=== PATIENT | male | born 1960 | race Caucasian/White ===

== ENCOUNTER 2016-12-06 13:15 | Inpatient (IN) | payer OTHER ==
[2016-12-06 14:04] VITALS: BMI 29.0
[2016-12-06] MEDS ORDERED: diazePAM 5 MG TABLET PO ONE (16:08)
[2016-12-06] MEDS ORDERED: hydrOXYzine PAMOATE 50 MG CAPSULE (FP) PO PRN (16:08)
[2016-12-06] MEDS ORDERED: METHADONE HCL 10 MG TABLET (FOR DETOX USE ONLY) PO ONE ×2 (16:08→23:00)
[2016-12-06] MEDS ORDERED: MAG HYDROX/AL HYDROX/SIMETH 30 ML UNIT-DOSE CUP PO PRN (16:08)
[2016-12-06] MEDS ORDERED: LOPERAMIDE HCL 2 MG CAPSULE PO PRN (16:08)
[2016-12-06] MEDS ORDERED: guaiFENesin/D-METHORPHAN HB 10 ML UNIT-DOSE CUPS PO PRN (16:08)
[2016-12-06] MEDS ORDERED: NICOTINE POLACRILEX 4 MG GUM BC PRN ×2 (16:08)
[2016-12-06] MEDS ORDERED: IBUPROFEN 400 MG TABLET (FP) PO PRN (16:08)
[2016-12-06] MEDS ORDERED: MENTHOL/PHENOL 1 EACH UD MM PRN (16:08)
[2016-12-06] MEDS ORDERED: ACETAMINOPHEN 325 MG TABLET (FP) PO PRN (16:08)
[2016-12-06] MEDS ORDERED: MAGNESIUM CITRATE 300 ML BOTTLE PO PRN (16:08)
[2016-12-06] MEDS ORDERED: MAGNESIUM HYDROX 2400MG/30ML ORAL SUSPENSION 30 ML CUP PO PRN (16:08)
[2016-12-06] MEDS ORDERED: P-EPHED 60MG/TRIPROLIDI 2.5MG TABLET PO PRN (16:08)
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
[2016-12-06] MEDS ORDERED: ALBUTEROL SO4 6.7 GM HFA INHALER IH PRN (16:10)
[2016-12-06] MEDS ORDERED: NICOTINE 21 MG/24 HOURS TOPICAL PATCH TD SCH (16:15)
[2016-12-06] MEDS ORDERED: METHADONE HCL 10 MG TABLET (FOR DETOX USE ONLY) ONE (18:37)
[2016-12-06] MEDS: NICOTINE 21 MG/24 HOURS TOPICAL PATCH TD SCH (18:51)
[2016-12-06] MEDS: CYCLOBENZAPRINE HCL 10 MG TABLET (FP) PO SCH (22:08)
[2016-12-06] MEDS: diazePAM 5 MG TABLET PO SCH (22:08)
[2016-12-06] MEDS: NAPROXEN 500 MG TABLET (FP) PO SCH (22:08)
[2016-12-06] MEDS: TAMSULOSIN HCL 0.4 MG CAP.ER.24H (FP) PO SCH (22:08)
[2016-12-06] MEDS: SULFAMETHOXAZOLE/TRIMETHOPRIM 800MG/160MG D.S. TABLET PO SCH (22:08)
[2016-12-06] MEDS: cloNIDine HCL 0.1 MG TABLET PO SCH (22:09)
[2016-12-06] MEDS: GABAPENTIN 100 MG CAPSULE (FP) PO SCH (22:09)
[2016-12-06] MEDS: THIAMINE HCL 100 MG TABLET (FP) PO SCH (22:09)
[2016-12-06 22:23] LABS: URINE APPEARANCE SLCLOUDY; URINE BILIRUBIN NEGATIVE (NEGATIVE); URINE BLOOD NEGATIVE (NEGATIVE); URINE COLOR AMBER; URINE GLUCOSE (UA) NEGATIVE (NEGATIVE); URINE KETONE NEGATIVE (NEGATIVE); URINE LEUK ESTERASE TRACE (NEGATIVE); URINE NITRITE NEGATIVE (NEGATIVE); URINE PROTEIN NEGATIVE (NEGATIVE)
[2016-12-06 22:59] LABS: CALCIUM OXALATE CRYSTALS MODERATE /hpf (NONE SEEN); URINE MUCUS MANY; URINE RBC 8 /hpf (0-3); URINE WBC 16 /hpf (3-5)
[2016-12-07] MEDS: diazePAM 5 MG TABLET PO SCH ×3 (05:04→22:18)
[2016-12-07] MEDS: GABAPENTIN 100 MG CAPSULE (FP) PO SCH ×3 (05:04→22:18)
[2016-12-07] MEDS: CYCLOBENZAPRINE HCL 10 MG TABLET (FP) PO SCH ×3 (05:04→22:18)
[2016-12-07 10:00] LABS: MCH 30.8 pg (25.7-33.7); MCHC 33.7 g/dl (32.0-35.9); MEAN CELL VOLUME 91.3 fl (80-96); MEAN PLT VOLUME 10.5 fl (7.5-11.1); PLATELET COUNT 138 K/MM3 (134-434); RDW 13.3 % (11.9-15.9)
[2016-12-07] MEDS ORDERED: METHADONE HCL 10 MG TABLET (FOR DETOX USE ONLY) PO SCH (10:00)
[2016-12-07 10:11] LABS: HIV 1 & 2 AB NEGATIVE; HIV 1 AGp24 NEGATIVE
[2016-12-07] MEDS: SULFAMETHOXAZOLE/TRIMETHOPRIM 800MG/160MG D.S. TABLET PO SCH ×2 (10:35→22:36)
[2016-12-07] MEDS: TAMSULOSIN HCL 0.4 MG CAP.ER.24H (FP) PO SCH ×2 (10:35→22:18)
[2016-12-07] MEDS: PRENATAL VITAMINS W/ FOLIC ACID TABLET (FP) PO SCH (10:35)
[2016-12-07] MEDS: NICOTINE 21 MG/24 HOURS TOPICAL PATCH TD SCH (10:36)
[2016-12-07] MEDS: cloNIDine HCL 0.1 MG TABLET PO SCH ×2 (10:36→22:18)
[2016-12-07] MEDS: NAPROXEN 500 MG TABLET (FP) PO SCH ×2 (10:36→22:18)
--- NOTE | 2016-12-07 10:36 | PN ---
[facility] CIWA - CIWA Score Nausea/Vomitin-No Nausea/No Vomiting Muscle Tremors: 4-Moderate,w/Arms Extend Anxiety: 4-Mod. Anxious/Guarded Agitation: 4-Moderately Restless Paroxysmal Sweats: 1-Minimal Palms Moist Orientation: 0-Oriented Tacttile Disturbances: 3-Moderate Itch/Numb/Burn Auditory Disturbances: 0-None Visual Disturbances: 0-None Headache: 0-None Present CIWA-Ar Total Score: 16 S COWS - Scale Resting Pulse: 0= [place] 80 or Below Sweatin= Chills/Flushing Restless Observation: 3= Extraneous Movement Pupil Size: 0= Normal to Room Light Bone or Joint Aches: 4=Acute Joint/Muscle Pain Runny Nose/ Eye Tearin= Nasal Congestion GI Upset > 30mins: 0= None Tremor Observation of Outstretched Hands: 1= Tremor [place], Not Seen Yawning Observation: 1= 1-2x During Session Anxiety or Irritability: 1=Feels Anxious/Irritable Goose Flesh Skin: 0=Smooth Skin COWS Score: 12 [facility] Progress Note (SOAP) Subjective: ALERT O X 3. SLIGHT ANXIETY, SWEATS. Objective: 12/07/16 10:39 Vital Signs Temperature 97.7 F 12/07/16 09:33 Pulse Rate 69 12/07/16 09:33 Respiratory Rate 18 12/07/16 09:33 Blood Pressure 93/61 12/07/16 09:33 O2 Sat by Pulse Oximetry (%) Laboratory Last Values WBC 7.0 K/mm3 (4.0-10.0) 12/07/16 06:00 RBC 5.25 M/mm3 (4.00-5.60) 12/07/16 06:00 Hgb 16.2 GM/dL (11.7-16.9) 12/07/16 06:00 Hct 48.0 % (35.4-49) 12/07/16 06:00 MCV 91.3 fl (80-96) 12/07/16 06:00 MCH 30.8 pg (25.7-33.7) 12/07/16 06:00 MCHC 33.7 g/dl (32.0-35.9) 12/07/16 06:00 RDW 13.3 % (11.9-15.9) 12/07/16 06:00 Plt Count 138 K/MM3 (134-434) 12/07/16 06:00 MPV 10.5 fl (7.5-11.1) 12/07/16 06:00 Urine Color Manju 12/06/16 21:57 Urine Appearance Slcloudy 12/06/16 21:57 Urine pH 5.0 (5.0-8.0) 12/06/16 21:57 Ur Specific [place] 1.025 (1.005-1.025) 12/06/16 21:57 Urine Protein Negative (NEGATIVE) 12/06/16 21:57 Urine Glucose (UA) Negative (NEGATIVE) 12/06/16 21:57 Urine Ketones Negative (NEGATIVE) 12/06/16 21:57 Urine Blood Negative (NEGATIVE) 12/06/16 21:57 Urine Nitrite Negative (NEGATIVE) 12/06/16 21:57 Urine Bilirubin Negative (NEGATIVE) 12/06/16 21:57 Urine Urobilinogen 2.0 mg/dL (0.2-1.0) 12/06/16 21:57 Ur Leukocyte Esterase Trace (NEGATIVE) 12/06/16 21:57 Urine RBC 8 /hpf (0-3) 12/06/16 21:57 Urine WBC 16 /hpf (3-5) 12/06/16 21:57 Ur Epithelial Cells Rare /hpf (FEW) 12/06/16 21:57 Calcium Oxalate Crystal Moderate /hpf (NONE SEEN) 12/06/16 21:57 Urine Mucus Many 12/06/16 21:57 RPR Titer Nonreactive (NONREACTIVE) 12/07/16 06:00 HIV 1&2 Antibody Screen Negative 12/07/16 06:00 HIV P24 Antigen Negative 12/07/16 06:00 OTHER LABS PENDING Assessment: 12/07/16 10:45 WITHDRAWAL SX Plan: CONTINUE DETOX INCREASE PO FLUIDS.
--- NOTE | 2016-12-07 10:47 | EKG ---
Test Reason : Blood Pressure : / mmHG Vent. Rate : 070 BPM Atrial Rate : 070 BPM P-R Int : 162 ms QRS Dur : 084 ms QT Int : 360 ms P-R-T Axes : 071 048 042 degrees QTc Int : 388 ms NORMAL SINUS RHYTHM WITH SINUS ARRHYTHMIA NORMAL ECG NO PREVIOUS ECGS AVAILABLE Confirmed by ADITYA FERRARI, FLOR ([id number]) on 12/07/2016 10:47:06 AM Referred By: Confirmed By:FLOR BURGESS MD
[2016-12-07 11:22] LABS: ALBUMIN 3.7 g/dl (3.4-5.0); ALK PHOS 109 U/L (45-117); ANION GAP 9 (8-16); BILIRUBIN,TOTAL 0.8 mg/dL (0.2-1.0); CALCIUM 8.9 mg/dL (8.5-10.1); CO2 27 mmol/L (21-32); CREATININE 1.1 mg/dL (0.7-1.3); GLUCOSE,RANDOM 130 mg/dL (74-106); SGOT/AST 24 U/L (15-37); SGPT/ALT 41 U/L (12-78); TOT PROT 7.1 g/dl (6.4-8.2)
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
[2016-12-07] MEDS: ZOLPIDEM TARTRATE 10 MG TABLET (PARK CARE ONLY) PO PRN (22:18)
[2016-12-07] MEDS: risperiDONE 1 MG TABLET (FP) PO SCH (22:18)
[2016-12-07] MEDS: THIAMINE HCL 100 MG TABLET (FP) PO SCH (22:18)
[2016-12-07 22:35] LABS: URINE APPEARANCE SLCLOUDY; URINE BILIRUBIN NEGATIVE (NEGATIVE); URINE BLOOD NEGATIVE (NEGATIVE); URINE COLOR YELLOW; URINE GLUCOSE (UA) NEGATIVE (NEGATIVE); URINE KETONE NEGATIVE (NEGATIVE); URINE LEUK ESTERASE NEGATIVE (NEGATIVE); URINE NITRITE NEGATIVE (NEGATIVE); URINE PROTEIN NEGATIVE (NEGATIVE); URINE UROBILINOGEN NEGATIVE mg/dL (0.2-1.0)
[2016-12-08] MEDS: CYCLOBENZAPRINE HCL 10 MG TABLET (FP) PO SCH ×3 (06:12→22:28)
[2016-12-08] MEDS: GABAPENTIN 100 MG CAPSULE (FP) PO SCH ×3 (06:12→22:28)
[2016-12-08] MEDS: diazePAM 5 MG TABLET PO PRN ×2 (06:12→14:13)
[2016-12-08] MEDS: TAMSULOSIN HCL 0.4 MG CAP.ER.24H (FP) PO SCH ×2 (10:45→22:29)
[2016-12-08] MEDS: diazePAM 5 MG TABLET PO SCH ×2 (10:45→22:28)
[2016-12-08] MEDS: SERTRALINE HCL 50 MG TABLET (FP) PO SCH (10:45)
[2016-12-08] MEDS: METHADONE HCL 5 MG TABLET (FOR DETOX USE ONLY) PO SCH (10:46)
[2016-12-08] MEDS: PRENATAL VITAMINS W/ FOLIC ACID TABLET (FP) PO SCH (10:46)
[2016-12-08] MEDS: cloNIDine HCL 0.1 MG TABLET PO SCH ×2 (10:46→22:30)
[2016-12-08] MEDS: NAPROXEN 500 MG TABLET (FP) PO SCH ×2 (10:46→22:29)
[2016-12-08] MEDS: SULFAMETHOXAZOLE/TRIMETHOPRIM 800MG/160MG D.S. TABLET PO SCH ×2 (10:46→22:29)
[2016-12-08] MEDS: risperiDONE 1 MG TABLET (FP) PO SCH ×2 (10:46→22:29)
[2016-12-08] MEDS: NICOTINE 21 MG/24 HOURS TOPICAL PATCH TD SCH (10:47)
--- NOTE | 2016-12-08 11:09 | PN ---
[facility] CIWA - CIWA Score Nausea/Vomitin-No Nausea/No Vomiting Muscle Tremors: 4-Moderate,w/Arms Extend Anxiety: 4-Mod. Anxious/Guarded Agitation: 4-Moderately Restless Paroxysmal Sweats: 1-Minimal Palms Moist Orientation: 0-Oriented Tacttile Disturbances: 3-Moderate Itch/Numb/Burn Auditory Disturbances: 0-None Visual Disturbances: 0-None Headache: 0-None Present CIWA-Ar Total Score: 16 S COWS - Scale Resting Pulse: 1= [place] 81-100 Sweatin= Chills/Flushing Restless Observation: 3= Extraneous Movement Pupil Size: 0= Normal to Room Light Bone or Joint Aches: 4=Acute Joint/Muscle Pain Runny Nose/ Eye Tearin= Nasal Congestion GI Upset > 30mins: 0= None Tremor Observation of Outstretched Hands: 1= Tremor [place], Not Seen Yawning Observation: 1= 1-2x During Session Anxiety or Irritability: 2=Irritable/Anxious Goose Flesh Skin: 0=Smooth Skin COWS Score: 14 [facility] Progress Note (SOAP) Subjective: ANXIETY,SWEATS,FATIGUE. Objective: 12/08/16 11:08 Vital Signs Temperature 97.2 F L 12/08/16 09:40 Pulse Rate 82 12/08/16 09:40 Respiratory Rate 18 12/08/16 09:40 Blood Pressure 91/65 12/08/16 09:40 O2 Sat by Pulse Oximetry (%) Laboratory Last Values WBC 7.0 K/mm3 (4.0-10.0) 12/07/16 06:00 RBC 5.25 M/mm3 (4.00-5.60) 12/07/16 06:00 Hgb 16.2 GM/dL (11.7-16.9) 12/07/16 06:00 Hct 48.0 % (35.4-49) 12/07/16 06:00 MCV 91.3 fl (80-96) 12/07/16 06:00 MCH 30.8 pg (25.7-33.7) 12/07/16 06:00 MCHC 33.7 g/dl (32.0-35.9) 12/07/16 06:00 RDW 13.3 % (11.9-15.9) 12/07/16 06:00 Plt Count 138 K/MM3 (134-434) 12/07/16 06:00 MPV 10.5 fl (7.5-11.1) 12/07/16 06:00 Sodium 141 mmol/L (136-145) 12/07/16 06:00 Potassium 4.5 mmol/L (3.5-5.1) 12/07/16 06:00 Chloride 105 mmol/L (98-107) 12/07/16 06:00 Carbon Dioxide 27 mmol/L (21-32) 12/07/16 06:00 Anion Gap 9 (8-16) 12/07/16 06:00 BUN 20 mg/dL (7-18) H 12/07/16 06:00 Creatinine 1.1 mg/dL (0.7-1.3) 12/07/16 06:00 Creat Clearance w eGFR > 60 (>60) 12/07/16 06:00 Random Glucose 130 mg/dL (74-106) H 12/07/16 06:00 Calcium 8.9 mg/dL (8.5-10.1) 12/07/16 06:00 Total Bilirubin 0.8 mg/dL (0.2-1.0) 12/07/16 06:00 AST 24 U/L (15-37) 12/07/16 06:00 ALT 41 U/L (12-78) 12/07/16 06:00 Alkaline Phosphatase 109 U/L (45-117) 12/07/16 06:00 Total Protein 7.1 g/dl (6.4-8.2) 12/07/16 06:00 Albumin 3.7 g/dl (3.4-5.0) 12/07/16 06:00 Urine Color Yellow 12/07/16 21:30 Urine Appearance Slcloudy 12/07/16 21:30 Urine pH 6.0 (5.0-8.0) 12/07/16 21:30 Ur Specific [place] 1.025 (1.005-1.025) 12/06/16 21:57 Urine Protein Negative (NEGATIVE) 12/07/16 21:30 Urine Glucose (UA) Negative (NEGATIVE) 12/07/16 21:30 Urine Ketones Negative (NEGATIVE) 12/07/16 21:30 Urine Blood Negative (NEGATIVE) 12/07/16 21:30 Urine Nitrite Negative (NEGATIVE) 12/07/16 21:30 Urine Bilirubin Negative (NEGATIVE) 12/07/16 21:30 Urine Urobilinogen Negative mg/dL (0.2-1.0) 12/07/16 21:30 Ur Leukocyte Esterase Negative (NEGATIVE) 12/07/16 21:30 Urine RBC 8 /hpf (0-3) 12/06/16 21:57 Urine WBC 16 /hpf (3-5) 12/06/16 21:57 Ur Epithelial Cells Rare /hpf (FEW) 12/06/16 21:57 Calcium Oxalate Crystal Moderate /hpf (NONE SEEN) 12/06/16 21:57 Urine Mucus Many 12/06/16 21:57 RPR Titer Nonreactive (NONREACTIVE) 12/07/16 06:00 HIV 1&2 Antibody Screen Negative 12/07/16 06:00 HIV P24 Antigen Negative 12/07/16 06:00 LABS NOTED Assessment: 12/08/16 11:08 WITHDRAWAL SX Plan: CONTINUE DETOX REPEAT UA INCREASE PO FLUIDS.
[2016-12-08] MEDS: THIAMINE HCL 100 MG TABLET (FP) PO SCH (22:28)
[2016-12-08] MEDS: ZOLPIDEM TARTRATE 10 MG TABLET (PARK CARE ONLY) PO PRN (22:29)
[2016-12-09] MEDS: CYCLOBENZAPRINE HCL 10 MG TABLET (FP) PO SCH ×3 (06:01→22:29)
[2016-12-09] MEDS: GABAPENTIN 100 MG CAPSULE (FP) PO SCH ×3 (06:01→22:28)
[2016-12-09] MEDS: diazePAM 5 MG TABLET PO PRN (06:01)
[2016-12-09] MEDS: SULFAMETHOXAZOLE/TRIMETHOPRIM 800MG/160MG D.S. TABLET PO SCH ×2 (10:50→22:28)
[2016-12-09] MEDS: PRENATAL VITAMINS W/ FOLIC ACID TABLET (FP) PO SCH (10:51)
[2016-12-09] MEDS: TAMSULOSIN HCL 0.4 MG CAP.ER.24H (FP) PO SCH ×2 (10:51→22:29)
[2016-12-09] MEDS: diazePAM 5 MG TABLET PO SCH ×2 (10:51→22:28)
[2016-12-09] MEDS: METHADONE HCL 5 MG TABLET (FOR DETOX USE ONLY) PO SCH (10:51)
[2016-12-09] MEDS: cloNIDine HCL 0.1 MG TABLET PO SCH ×2 (10:51→22:29)
[2016-12-09] MEDS: NAPROXEN 500 MG TABLET (FP) PO SCH ×2 (10:51→22:29)
[2016-12-09] MEDS: SERTRALINE HCL 50 MG TABLET (FP) PO SCH (10:51)
[2016-12-09] MEDS: risperiDONE 1 MG TABLET (FP) PO SCH (10:51)
[2016-12-09] MEDS: NICOTINE 21 MG/24 HOURS TOPICAL PATCH TD SCH (10:51)
--- NOTE | 2016-12-09 11:20 | PN ---
[facility] Progress Note (SOAP) Subjective: ANXIETY,SWEATS,IRRITABILITY Objective: 12/09/16 11:22 Vital Signs Temperature 97.9 F 12/09/16 06:13 Pulse Rate 85 12/09/16 06:13 Respiratory Rate 16 12/09/16 06:13 Blood Pressure 93/62 12/09/16 06:13 O2 Sat by Pulse Oximetry (%) Laboratory Last Values WBC 7.0 K/mm3 (4.0-10.0) 12/07/16 06:00 RBC 5.25 M/mm3 (4.00-5.60) 12/07/16 06:00 Hgb 16.2 GM/dL (11.7-16.9) 12/07/16 06:00 Hct 48.0 % (35.4-49) 12/07/16 06:00 MCV 91.3 fl (80-96) 12/07/16 06:00 MCH 30.8 pg (25.7-33.7) 12/07/16 06:00 MCHC 33.7 g/dl (32.0-35.9) 12/07/16 06:00 RDW 13.3 % (11.9-15.9) 12/07/16 06:00 Plt Count 138 K/MM3 (134-434) 12/07/16 06:00 MPV 10.5 fl (7.5-11.1) 12/07/16 06:00 Sodium 141 mmol/L (136-145) 12/07/16 06:00 Potassium 4.5 mmol/L (3.5-5.1) 12/07/16 06:00 Chloride 105 mmol/L (98-107) 12/07/16 06:00 Carbon Dioxide 27 mmol/L (21-32) 12/07/16 06:00 Anion Gap 9 (8-16) 12/07/16 06:00 BUN 20 mg/dL (7-18) H 12/07/16 06:00 Creatinine 1.1 mg/dL (0.7-1.3) 12/07/16 06:00 Creat Clearance w eGFR > 60 (>60) 12/07/16 06:00 Random Glucose 130 mg/dL (74-106) H 12/07/16 06:00 Calcium 8.9 mg/dL (8.5-10.1) 12/07/16 06:00 Total Bilirubin 0.8 mg/dL (0.2-1.0) 12/07/16 06:00 AST 24 U/L (15-37) 12/07/16 06:00 ALT 41 U/L (12-78) 12/07/16 06:00 Alkaline Phosphatase 109 U/L (45-117) 12/07/16 06:00 Total Protein 7.1 g/dl (6.4-8.2) 12/07/16 06:00 Albumin 3.7 g/dl (3.4-5.0) 12/07/16 06:00 Urine Color Yellow 12/07/16 21:30 Urine Appearance Slcloudy 12/07/16 21:30 Urine pH 6.0 (5.0-8.0) 12/07/16 21:30 Ur Specific [place] 1.025 (1.005-1.025) 12/07/16 21:30 Urine Protein Negative (NEGATIVE) 12/07/16 21:30 Urine Glucose (UA) Negative (NEGATIVE) 12/07/16 21:30 Urine Ketones Negative (NEGATIVE) 12/07/16 21:30 Urine Blood Negative (NEGATIVE) 12/07/16 21:30 Urine Nitrite Negative (NEGATIVE) 12/07/16 21:30 Urine Bilirubin Negative (NEGATIVE) 12/07/16 21:30 Urine Urobilinogen Negative mg/dL (0.2-1.0) 12/07/16 21:30 Ur Leukocyte Esterase Negative (NEGATIVE) 12/07/16 21:30 Urine RBC 8 /hpf (0-3) 12/06/16 21:57 Urine WBC 16 /hpf (3-5) 12/06/16 21:57 Ur Epithelial Cells Rare /hpf (FEW) 12/06/16 21:57 Calcium Oxalate Crystal Moderate /hpf (NONE SEEN) 12/06/16 21:57 Urine Mucus Many 12/06/16 21:57 RPR Titer Nonreactive (NONREACTIVE) 12/07/16 06:00 HIV 1&2 Antibody Screen Negative 12/07/16 06:00 HIV P24 Antigen Negative 12/07/16 06:00 REPEAT UA IMPROVED. Assessment: 12/09/16 11:23 WITHDRAWAL SX Plan: CONTINUE DETOX
[2016-12-09] MEDS: ZOLPIDEM TARTRATE 10 MG TABLET (PARK CARE ONLY) PO PRN (22:29)
[2016-12-09] MEDS: THIAMINE HCL 100 MG TABLET (FP) PO SCH (22:29)
[2016-12-10] MEDS: CYCLOBENZAPRINE HCL 10 MG TABLET (FP) PO SCH ×3 (05:55→23:00)
[2016-12-10] MEDS: GABAPENTIN 100 MG CAPSULE (FP) PO SCH ×3 (05:55→22:59)
[2016-12-10] MEDS ORDERED: diazePAM 5 MG TABLET PO SCH (10:00)
[2016-12-10] MEDS ORDERED: METHADONE HCL 10 MG TABLET (FOR DETOX USE ONLY) PO SCH (10:00)
[2016-12-10] MEDS: SULFAMETHOXAZOLE/TRIMETHOPRIM 800MG/160MG D.S. TABLET PO SCH ×2 (10:40→23:00)
[2016-12-10] MEDS: cloNIDine HCL 0.1 MG TABLET PO SCH ×2 (10:40→23:00)
[2016-12-10] MEDS: TAMSULOSIN HCL 0.4 MG CAP.ER.24H (FP) PO SCH ×2 (10:40→23:00)
[2016-12-10] MEDS: PRENATAL VITAMINS W/ FOLIC ACID TABLET (FP) PO SCH (10:40)
[2016-12-10] MEDS: NAPROXEN 500 MG TABLET (FP) PO SCH ×2 (10:40→22:59)
[2016-12-10] MEDS: NICOTINE 21 MG/24 HOURS TOPICAL PATCH TD SCH (10:42)
--- NOTE | 2016-12-10 19:09 | PN ---
[facility] Progress Note (SOAP) Subjective: Tremors, Fatigue. Objective: PT. A & O X 2 (DISORIENTED ABOUT DAY / DATE). NO ACUTE DISTRESS. 12/10/16 19:07 Vital Signs Temperature 97.5 F L 12/10/16 18:19 Pulse Rate 84 12/10/16 18:19 Respiratory Rate 16 12/10/16 18:19 Blood Pressure 108/70 12/10/16 18:19 O2 Sat by Pulse Oximetry (%) Laboratory Tests 12/06/16 12/07/16 12/07/16 21:57 06:00 06:00 WBC 7.0 RBC 5.25 Hgb 16.2 Hct 48.0 MCV 91.3 MCH 30.8 MCHC 33.7 RDW 13.3 Plt Count 138 MPV 10.5 Sodium Potassium Chloride Carbon Dioxide Anion Gap BUN Creatinine Creat Clearance w eGFR Random Glucose Calcium Total Bilirubin AST ALT Alkaline Phosphatase Total Protein Albumin Urine Color Manju Urine Appearance Slcloudy Urine pH 5.0 Ur Specific [place] 1.025 Urine Protein Negative Urine Glucose (UA) Negative Urine Ketones Negative Urine Blood Negative Urine Nitrite Negative Urine Bilirubin Negative Urine Urobilinogen 2.0 Ur Leukocyte Esterase Trace Urine RBC 8 Urine WBC 16 Ur Epithelial Cells Rare Calcium Oxalate Crystal Moderate Urine Mucus Many RPR Titer HIV 1&2 Antibody Screen Negative HIV P24 Antigen Negative 12/07/16 12/07/16 12/07/16 06:00 06:00 21:30 WBC RBC Hgb Hct MCV MCH MCHC RDW Plt Count MPV Sodium 141 Potassium 4.5 Chloride 105 Carbon Dioxide 27 Anion Gap 9 BUN 20 H Creatinine 1.1 Creat Clearance w eGFR > 60 Random Glucose 130 H Calcium 8.9 Total Bilirubin 0.8 AST 24 ALT 41 Alkaline Phosphatase 109 Total Protein 7.1 Albumin 3.7 Urine Color Yellow Urine Appearance Slcloudy Urine pH 6.0 Ur Specific [place] 1.025 Urine Protein Negative Urine Glucose (UA) Negative Urine Ketones Negative Urine Blood Negative Urine Nitrite Negative Urine Bilirubin Negative Urine Urobilinogen Negative Ur Leukocyte Esterase Negative Urine RBC Urine WBC Ur Epithelial Cells Calcium Oxalate Crystal Urine Mucus RPR Titer Nonreactive HIV 1&2 Antibody Screen HIV P24 Antigen LABS NOTED. Assessment: 12/10/16 19:08 WITHDRAWAL SYMPTOMS. Plan: CONTINUE DETOX.
[2016-12-10] MEDS: THIAMINE HCL 100 MG TABLET (FP) PO SCH (22:59)
[2016-12-10] MEDS: ZOLPIDEM TARTRATE 10 MG TABLET (PARK CARE ONLY) PO PRN (23:01)
[2016-12-11] MEDS: CYCLOBENZAPRINE HCL 10 MG TABLET (FP) PO SCH (05:39)
[2016-12-11] MEDS: GABAPENTIN 100 MG CAPSULE (FP) PO SCH (05:39)
[2016-12-11] MEDS ORDERED: METHADONE HCL 5 MG TABLET (FOR DETOX USE ONLY) PO SCH (06:00)
[2016-12-11 06:35] VITALS: BP 102/66; PULSE 72; TEMP 97.6
[2016-12-11] MEDS: NAPROXEN 500 MG TABLET (FP) PO SCH (10:08)
[2016-12-11] MEDS: NICOTINE 21 MG/24 HOURS TOPICAL PATCH TD SCH (10:09)
[2016-12-11] MEDS: TAMSULOSIN HCL 0.4 MG CAP.ER.24H (FP) PO SCH (10:09)
[2016-12-11] MEDS: PRENATAL VITAMINS W/ FOLIC ACID TABLET (FP) PO SCH (10:09)
[2016-12-11] MEDS: SULFAMETHOXAZOLE/TRIMETHOPRIM 800MG/160MG D.S. TABLET PO SCH (10:09)
[2016-12-11] MEDS: cloNIDine HCL 0.1 MG TABLET PO SCH (10:09)
--- NOTE | 2016-12-11 13:42 | DS ---
[facility] Detox Discharge Summary Admission Date: 12/06/16 Discharge Date: 12/11/16 - History Present History: Opioid Dependence, Sedative Dependence Pertinent Past History: PPD Positive Asthma - Physical Exam Results Vital Signs: Vital Signs Temperature 97.6 F 12/11/16 06:00 Pulse Rate 72 12/11/16 06:00 Respiratory Rate 18 12/11/16 06:00 Blood Pressure 102/66 12/11/16 06:00 O2 Sat by Pulse Oximetry (%) Pertinent Admission Physical Exam Findings: Withdrawal symptoms Laboratory Tests 12/06/16 12/07/16 12/07/16 21:57 06:00 06:00 WBC 7.0 RBC 5.25 Hgb 16.2 Hct 48.0 MCV 91.3 MCH 30.8 MCHC 33.7 RDW 13.3 Plt Count 138 MPV 10.5 Sodium Potassium Chloride Carbon Dioxide Anion Gap BUN Creatinine Creat Clearance w eGFR Random Glucose Calcium Total Bilirubin AST ALT Alkaline Phosphatase Total Protein Albumin Urine Color Manju Urine Appearance Slcloudy Urine pH 5.0 Ur Specific [place] 1.025 Urine Protein Negative Urine Glucose (UA) Negative Urine Ketones Negative Urine Blood Negative Urine Nitrite Negative Urine Bilirubin Negative Urine Urobilinogen 2.0 Ur Leukocyte Esterase Trace Urine RBC 8 Urine WBC 16 Ur Epithelial Cells Rare Calcium Oxalate Crystal Moderate Urine Mucus Many RPR Titer HIV 1&2 Antibody Screen Negative HIV P24 Antigen Negative 12/07/16 12/07/16 12/07/16 06:00 06:00 21:30 WBC RBC Hgb Hct MCV MCH MCHC RDW Plt Count MPV Sodium 141 Potassium 4.5 Chloride 105 Carbon Dioxide 27 Anion Gap 9 BUN 20 H Creatinine 1.1 Creat Clearance w eGFR > 60 Random Glucose 130 H Calcium 8.9 Total Bilirubin 0.8 AST 24 ALT 41 Alkaline Phosphatase 109 Total Protein 7.1 Albumin 3.7 Urine Color Yellow Urine Appearance Slcloudy Urine pH 6.0 Ur Specific [place] 1.025 Urine Protein Negative Urine Glucose (UA) Negative Urine Ketones Negative Urine Blood Negative Urine Nitrite Negative Urine Bilirubin Negative Urine Urobilinogen Negative Ur Leukocyte Esterase Negative Urine RBC Urine WBC Ur Epithelial Cells Calcium Oxalate Crystal Urine Mucus RPR Titer Nonreactive HIV 1&2 Antibody Screen HIV P24 Antigen Labs noted: BUN 20 (azotemia: encouraged to drink lots of water) - Treatment Hospital Course: Detox Protocol Followed, Detoxed Safely, Responded well, Discharged Condition Good - Medication Discharge Medications: Ambulatory Orders Albuterol Sulfate Inhaler - [Ventolin Hfa Inhaler -] 2 inh PO Q4H PRN 12/06/16 Sertraline HCl [Zoloft -] 50 mg PO DAILY 12/06/16 Tamsulosin HCl [Flomax] 0.4 mg PO BID 12/06/16 - Diagnosis (1) Depression Status: Chronic (2) Nicotine dependence Status: Chronic Qualifiers: Nicotine product type: cigarettes Substance use status: in withdrawal Qualified Code(s): F17.213 - Nicotine dependence, cigarettes, with withdrawal (3) Opioid dependence with withdrawal Status: Acute (4) Sedative, hypnotic or anxiolytic dependence with withdrawal, uncomplicated Status: Acute (5) PPD positive Status: Chronic (6) Asthma Status: Acute Qualifiers: Asthma severity: mild intermittent (7) Bipolar disorder Status: Chronic (8) Azotemia Status: Acute - AMA Did Patient Leave Against Medical Advice: No
== END 2016-12-11 10:30 | disposition home or self-care (01) | DRG 773 ==
LOC: YASAS 13:15 → Y3N 17:01
PROVIDERS: ADMIT Internal Medicine Addiction Medicine; ATTEND Internal Medicine Addiction Medicine
PROC: HZ2ZZZZ Detoxification Services for Substance Abuse Treatment (ICD-10-PCS; principal; 2016-12-06)
DX: F11.23 Opioid dependence with withdrawal (principal); F13.230 Sedative, hypnotic or anxiolytic dependence with withdrawal, uncomplicated; F17.213 Nicotine dependence, cigarettes, with withdrawal; F32.9 Major depressive disorder, single episode, unspecified; F31.9 Bipolar disorder, unspecified; J45.909 Unspecified asthma, uncomplicated; R79.89 Other specified abnormal findings of blood chemistry; B18.2 Chronic viral hepatitis C; R76.11 Nonspecific reaction to tuberculin skin test without active tuberculosis; M54.5 Low back pain; G89.29 Other chronic pain; L05.01 Pilonidal cyst with abscess; Z91.5 Personal history of self-harm
CPT/HCPCS: 36415; 71020-TC; 80053; 81003; 81015; 85027; 86593; 87086; 87389; 93005; 93010; J2794

== ENCOUNTER 2018-01-05 13:00 | Inpatient (IN) | payer OTHER ==
[2018-01-05 13:52] VITALS: BMI 29.2
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
[2018-01-05] MEDS ORDERED: LOPERAMIDE HCL 2 MG CAPSULE PO PRN (15:09)
[2018-01-05] MEDS ORDERED: P-EPHED 60MG/TRIPROLIDI 2.5MG TABLET PO PRN (15:09)
[2018-01-05] MEDS ORDERED: hydrOXYzine PAMOATE 25 MG CAPSULE (FP) PO PRN (15:09)
[2018-01-05] MEDS ORDERED: IBUPROFEN 400 MG TABLET (FP) PO PRN (15:09)
[2018-01-05] MEDS ORDERED: ACETAMINOPHEN 325 MG TABLET (FP) PO PRN (15:09)
[2018-01-05] MEDS ORDERED: MAGNESIUM HYDROX 2400MG/30ML ORAL SUSPENSION 30 ML CUP PO PRN (15:09)
[2018-01-05] MEDS ORDERED: MAG HYDROX/AL HYDROX/SIMETH 30 ML UNIT-DOSE CUP PO PRN (15:09)
[2018-01-05] MEDS ORDERED: MENTHOL/PHENOL 1 EACH UD MM PRN (15:09)
[2018-01-05] MEDS ORDERED: MAGNESIUM CITRATE 300 ML BOTTLE PO PRN (15:09)
[2018-01-05] MEDS ORDERED: guaiFENesin/D-METHORPHAN HB 10 ML UNIT-DOSE CUPS PO PRN (15:09)
[2018-01-05] MEDS ORDERED: NICOTINE POLACRILEX 2 MG GUM BC PRN (15:09)
[2018-01-05] MEDS ORDERED: ALBUTEROL SO4 8 GM HFA INHALER IH PRN (15:12)
[2018-01-05] MEDS ORDERED: METHADONE HCL 10 MG TABLET (FOR DETOX USE ONLY) PO ONE ×2 (16:00→23:00)
[2018-01-05] MEDS: NICOTINE 21 MG/24 HOURS TOPICAL PATCH TD SCH (17:14)
[2018-01-05] MEDS: diazePAM 5 MG TABLET PO PRN ×2 (17:14→22:38)
[2018-01-05] MEDS: TAMSULOSIN HCL 0.4 MG CAP.ER.24H (FP) PO SCH (22:38)
[2018-01-05] MEDS: THIAMINE HCL 100 MG TABLET (FP) PO SCH (22:38)
[2018-01-06] MEDS: diazePAM 5 MG TABLET PO PRN ×3 (08:48→22:42)
[2018-01-06] MEDS ORDERED: METHADONE HCL 10 MG TABLET (FOR DETOX USE ONLY) PO ONE (10:00)
[2018-01-06 10:11] LABS: HEMATOCRIT 46.9 % (35.4-49); HEMOGLOBIN 15.5 GM/dL (11.7-16.9); MCH 29.5 pg (25.7-33.7); MCHC 33.1 g/dl (32.0-35.9); MEAN CELL VOLUME 89.2 fl (80-96); MEAN PLT VOLUME 9.9 fl (7.5-11.1); PLATELET COUNT 97 K/MM3 (134-434); RBC 5.25 M/mm3 (4.00-5.60); RDW 13.6 % (11.9-15.9); WHITE BLOOD COUNT 4.9 K/mm3 (4.0-10.0)
[2018-01-06] MEDS: PRENATAL VITAMINS W/ FOLIC ACID TABLET (FP) PO SCH (10:34)
[2018-01-06] MEDS: TAMSULOSIN HCL 0.4 MG CAP.ER.24H (FP) PO SCH ×2 (10:35→22:41)
[2018-01-06] MEDS: NICOTINE 21 MG/24 HOURS TOPICAL PATCH TD SCH (10:36)
[2018-01-06 10:47] LABS: ALBUMIN 3.1 g/dl (3.4-5.0); ALK PHOS 122 U/L (45-117); ANION GAP 6 MMOL/L (8-16); BILIRUBIN,TOTAL 0.4 mg/dL (0.2-1); BLOOD UREA NITROGEN 19 mg/dL (7-18); CALCIUM 8.1 mg/dL (8.5-10.1); CHLORIDE 108 mmol/L (98-107); CO2 26 mmol/L (21-32); CREATININE 0.9 mg/dL (0.55-1.3); GLUCOSE,RANDOM 91 mg/dL (74-106); POTASSIUM 3.9 mmol/L (3.5-5.1); SGOT/AST 33 U/L (15-37); SGPT/ALT 60 U/L (13-61); SODIUM 140 mmol/L (136-145); TOT PROT 6.1 g/dl (6.4-8.2)
[2018-01-06 11:12] LABS: URINE APPEARANCE CLOUDY; URINE BILIRUBIN NEGATIVE (<2.0 mg/dL); URINE COLOR AMBER; URINE GLUCOSE (UA) NEGATIVE (NEGATIVE); URINE KETONE NEGATIVE (NEGATIVE); URINE LEUK ESTERASE NEGATIVE (NEGATIVE); URINE NITRITE NEGATIVE (NEGATIVE); URINE PROTEIN NEGATIVE (NEGATIVE); URINE UROBILINOGEN NEGATIVE mg/dL (0.2-1.0)
[2018-01-06 11:26] LABS: CALCIUM OXALATE CRYSTALS RARE /hpf (NONE SEEN); URINE MUCUS MODERATE
[2018-01-06] MEDS ORDERED: FLU VACCINE QUAD 60 MCG/0.5 ML (MDV 18-19) IM ONE (12:00)
--- NOTE | 2018-01-06 14:05 | PN ---
[facility] COWS - Scale Resting Pulse: 0= [place] 80 or Below Sweatin= Chills/Flushing Restless Observation: 1= Difficult to Sit Still Pupil Size: 0= Normal to Room Light Bone or Joint Aches: 1= Mild Discomfort Runny Nose/ Eye Tearin= Runny Nose/Eyes GI Upset > 30mins: 1= Stomach Cramp Tremor Observation of Outstretched Hands: 1= Tremor [place], Not Seen Yawning Observation: 4= Several Times/Minute Anxiety or Irritability: 1=Feels Anxious/Irritable Goose Flesh Skin: 0=Smooth Skin COWS Score: 12 S Progress Note (SOAP) Subjective: chills, sweats, interrupted sleep Objective: 01/06/18 14:01 Vital Signs Temperature 97.6 F 01/06/18 13:46 Pulse Rate 76 01/06/18 13:46 Respiratory Rate 18 01/06/18 13:46 Blood Pressure 107/63 01/06/18 13:46 O2 Sat by Pulse Oximetry (%) Laboratory Last Values WBC 4.9 K/mm3 (4.0-10.0) 01/06/18 08:00 RBC 5.25 M/mm3 (4.00-5.60) 01/06/18 08:00 Hgb 15.5 GM/dL (11.7-16.9) 01/06/18 08:00 Hct 46.9 % (35.4-49) 01/06/18 08:00 MCV 89.2 fl (80-96) 01/06/18 08:00 MCH 29.5 pg (25.7-33.7) 01/06/18 08:00 MCHC 33.1 g/dl (32.0-35.9) 01/06/18 08:00 RDW 13.6 % (11.9-15.9) 01/06/18 08:00 Plt Count 97 K/MM3 (134-434) L D 01/06/18 08:00 MPV 9.9 fl (7.5-11.1) 01/06/18 08:00 Sodium 140 mmol/L (136-145) 01/06/18 08:00 Potassium 3.9 mmol/L (3.5-5.1) 01/06/18 08:00 Chloride 108 mmol/L (98-107) H 01/06/18 08:00 Carbon Dioxide 26 mmol/L (21-32) 01/06/18 08:00 Anion Gap 6 MMOL/L (8-16) L 01/06/18 08:00 BUN 19 mg/dL (7-18) H 01/06/18 08:00 Creatinine 0.9 mg/dL (0.55-1.3) 01/06/18 08:00 Creat Clearance w eGFR > 60 (>60) 01/06/18 08:00 Random Glucose 91 mg/dL (74-106) 01/06/18 08:00 Calcium 8.1 mg/dL (8.5-10.1) L 01/06/18 08:00 Total Bilirubin 0.4 mg/dL (0.2-1) 01/06/18 08:00 AST 33 U/L (15-37) 01/06/18 08:00 ALT 60 U/L (13-61) 01/06/18 08:00 Alkaline Phosphatase 122 U/L (45-117) H 01/06/18 08:00 Total Protein 6.1 g/dl (6.4-8.2) L 01/06/18 08:00 Albumin 3.1 g/dl (3.4-5.0) L 01/06/18 08:00 Urine Color Manju 01/05/18 10:00 Urine Appearance Cloudy 01/05/18 10:00 Urine pH 5.0 (5.0-8.0) 01/05/18 10:00 Ur Specific [place] 1.020 (1.010-1.035) 01/05/18 10:00 Urine Protein Negative (NEGATIVE) 01/05/18 10:00 Urine Glucose (UA) Negative (NEGATIVE) 01/05/18 10:00 Urine Ketones Negative (NEGATIVE) 01/05/18 10:00 Urine Blood 2+ (NEGATIVE) H 01/05/18 10:00 Urine Nitrite Negative (NEGATIVE) 01/05/18 10:00 Urine Bilirubin Negative (<2.0 mg/dL) 01/05/18 10:00 Urine Urobilinogen Negative mg/dL (0.2-1.0) 01/05/18 10:00 Ur Leukocyte Esterase Negative (NEGATIVE) 01/05/18 10:00 Urine WBC (Auto) 7 /hpf (3-5) 01/05/18 10:00 Urine RBC (Auto) 32 /hpf (0-3) 01/05/18 10:00 Calcium Oxalate Crystal Rare /hpf (NONE SEEN) 01/05/18 10:00 Urine Mucus Moderate 01/05/18 10:00 RPR Titer Nonreactive (NONREACTIVE) 01/06/18 08:00 HIV 1&2 Antibody Screen Negative 01/06/18 08:00 HIV P24 Antigen Negative 01/06/18 08:00 AOx3 no distress, anxious no adventitious breath sounds full ROM ambulating in the unit independently Assessment: 01/06/18 14:02 withdrawal sx Plan: increase po fluids continue detox continue to monitor
--- NOTE | 2018-01-06 17:30 | EKG ---
Test Reason : Blood Pressure : / mmHG Vent. Rate : 068 BPM Atrial Rate : 068 BPM P-R Int : 174 ms QRS Dur : 090 ms QT Int : 374 ms P-R-T Axes : 057 057 053 degrees QTc Int : 397 ms NORMAL SINUS RHYTHM ST ELEVATION, CONSIDER EARLY REPOLARIZATION NORMAL ECG WHEN COMPARED WITH ECG OF 06-DEC-2016 18:57, NO SIGNIFICANT CHANGE WAS FOUND CLINICAL CORRELATION IS RECOMMENDED Confirmed by MANDY FERRARI, RAYSA ([id number]) on 01/06/2018 5:30:15 PM Referred By: Confirmed By:RAYSA GALVAN MD
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
[2018-01-06] MEDS: THIAMINE HCL 100 MG TABLET (FP) PO SCH (22:41)
[2018-01-06] MEDS: risperiDONE 1 MG TABLET (FP) PO SCH (22:41)
[2018-01-07] MEDS: diazePAM 5 MG TABLET PO PRN ×2 (08:28→22:55)
[2018-01-07] MEDS ORDERED: METHADONE HCL 5 MG TABLET (FOR DETOX USE ONLY) PO ONE (10:00)
[2018-01-07] MEDS: PRENATAL VITAMINS W/ FOLIC ACID TABLET (FP) PO SCH (10:46)
[2018-01-07] MEDS: TAMSULOSIN HCL 0.4 MG CAP.ER.24H (FP) PO SCH ×2 (10:46→22:41)
[2018-01-07] MEDS: SERTRALINE HCL 50 MG TABLET (FP) PO SCH (10:46)
[2018-01-07] MEDS: risperiDONE 1 MG TABLET (FP) PO SCH ×2 (10:46→22:41)
[2018-01-07] MEDS: NICOTINE 21 MG/24 HOURS TOPICAL PATCH TD SCH (10:47)
--- NOTE | 2018-01-07 11:33 | PN ---
S COWS - Scale Resting Pulse: 0= [place] 80 or Below Sweatin=Flushed/Facial Moisture Restless Observation: 1= Difficult to Sit Still Pupil Size: 1= Pupils >than Normal Bone or Joint Aches: 2= Severe Diffuse Aches Runny Nose/ Eye Tearin= Nasal Congestion GI Upset > 30mins: 2= Nausea/Diarrhea Tremor Observation of Outstretched Hands: 1= Tremor [place], Not Seen Yawning Observation: 0= None Anxiety or Irritability: 2=Irritable/Anxious Goose Flesh Skin: 0=Smooth Skin COWS Score: 12 S Progress Note (SOAP) Subjective: Interrupted sleep, generalized weakness, malaise Objective: 01/07/18 11:32 Vital Signs - 8 hr 01/07/18 01/07/18 06:16 09:29 Temperature 96.8 F L 96.3 F L Pulse Rate 68 78 Respiratory 18 18 Rate Blood Pressure 98/53 L 88/53 L Laboratory Last Values WBC 4.9 K/mm3 (4.0-10.0) 01/06/18 08:00 RBC 5.25 M/mm3 (4.00-5.60) 01/06/18 08:00 Hgb 15.5 GM/dL (11.7-16.9) 01/06/18 08:00 Hct 46.9 % (35.4-49) 01/06/18 08:00 MCV 89.2 fl (80-96) 01/06/18 08:00 MCH 29.5 pg (25.7-33.7) 01/06/18 08:00 MCHC 33.1 g/dl (32.0-35.9) 01/06/18 08:00 RDW 13.6 % (11.9-15.9) 01/06/18 08:00 Plt Count 97 K/MM3 (134-434) L D 01/06/18 08:00 MPV 9.9 fl (7.5-11.1) 01/06/18 08:00 Sodium 140 mmol/L (136-145) 01/06/18 08:00 Potassium 3.9 mmol/L (3.5-5.1) 01/06/18 08:00 Chloride 108 mmol/L (98-107) H 01/06/18 08:00 Carbon Dioxide 26 mmol/L (21-32) 01/06/18 08:00 Anion Gap 6 MMOL/L (8-16) L 01/06/18 08:00 BUN 19 mg/dL (7-18) H 01/06/18 08:00 Creatinine 0.9 mg/dL (0.55-1.3) 01/06/18 08:00 Creat Clearance w eGFR > 60 (>60) 01/06/18 08:00 Random Glucose 91 mg/dL (74-106) 01/06/18 08:00 Calcium 8.1 mg/dL (8.5-10.1) L 01/06/18 08:00 Total Bilirubin 0.4 mg/dL (0.2-1) 01/06/18 08:00 AST 33 U/L (15-37) 01/06/18 08:00 ALT 60 U/L (13-61) 01/06/18 08:00 Alkaline Phosphatase 122 U/L (45-117) H 01/06/18 08:00 Total Protein 6.1 g/dl (6.4-8.2) L 01/06/18 08:00 Albumin 3.1 g/dl (3.4-5.0) L 01/06/18 08:00 Urine Color Manju 01/05/18 10:00 Urine Appearance Cloudy 01/05/18 10:00 Urine pH 5.0 (5.0-8.0) 01/05/18 10:00 Ur Specific [place] 1.020 (1.010-1.035) 01/05/18 10:00 Urine Protein Negative (NEGATIVE) 01/05/18 10:00 Urine Glucose (UA) Negative (NEGATIVE) 01/05/18 10:00 Urine Ketones Negative (NEGATIVE) 01/05/18 10:00 Urine Blood 2+ (NEGATIVE) H 01/05/18 10:00 Urine Nitrite Negative (NEGATIVE) 01/05/18 10:00 Urine Bilirubin Negative (<2.0 mg/dL) 01/05/18 10:00 Urine Urobilinogen Negative mg/dL (0.2-1.0) 01/05/18 10:00 Ur Leukocyte Esterase Negative (NEGATIVE) 01/05/18 10:00 Urine WBC (Auto) 7 /hpf (3-5) 01/05/18 10:00 Urine RBC (Auto) 32 /hpf (0-3) 01/05/18 10:00 Calcium Oxalate Crystal Rare /hpf (NONE SEEN) 01/05/18 10:00 Urine Mucus Moderate 01/05/18 10:00 RPR Titer Nonreactive (NONREACTIVE) 01/06/18 08:00 HIV 1&2 Antibody Screen Negative 01/06/18 08:00 HIV P24 Antigen Negative 01/06/18 08:00 Labs noted Assessment: 01/07/18 11:33 Withdrawal sx Plan: Continue detox
[2018-01-07] MEDS: THIAMINE HCL 100 MG TABLET (FP) PO SCH (22:41)
[2018-01-07] MEDS: MELATONIN 5 MG TABLETS PO PRN (22:43)
[2018-01-08] MEDS: diazePAM 5 MG TABLET PO PRN (09:26)
[2018-01-08] MEDS ORDERED: METHADONE HCL 5 MG TABLET (FOR DETOX USE ONLY) PO ONE (10:00)
[2018-01-08] MEDS: SERTRALINE HCL 50 MG TABLET (FP) PO SCH (10:26)
[2018-01-08] MEDS: PRENATAL VITAMINS W/ FOLIC ACID TABLET (FP) PO SCH (10:26)
[2018-01-08] MEDS: risperiDONE 1 MG TABLET (FP) PO SCH ×2 (10:26→22:06)
[2018-01-08] MEDS: TAMSULOSIN HCL 0.4 MG CAP.ER.24H (FP) PO SCH ×2 (10:26→22:06)
[2018-01-08] MEDS: NICOTINE 21 MG/24 HOURS TOPICAL PATCH TD SCH (10:28)
--- NOTE | 2018-01-08 15:54 | PN ---
[facility] Progress Note (SOAP) Subjective: shakes sweats Objective: 01/08/18 15:51 A & O x 3 Vital Signs Temperature 96.8 F L 01/08/18 14:26 Pulse Rate 73 01/08/18 14:26 Respiratory Rate 18 01/08/18 14:26 Blood Pressure 105/71 01/08/18 14:26 O2 Sat by Pulse Oximetry (%) Assessment: 01/08/18 15:53 withdrawal sx Plan: continue detox
[2018-01-08] MEDS ORDERED: BACITRACIN 15 GM TUBE TOPICAL OINTMENT TP ONE (18:00)
[2018-01-08] MEDS: THIAMINE HCL 100 MG TABLET (FP) PO SCH (22:06)
[2018-01-09] MEDS: MELATONIN 5 MG TABLETS PO PRN ×3 (00:51→23:32)
[2018-01-09] MEDS ORDERED: METHADONE HCL 10 MG TABLET (FOR DETOX USE ONLY) PO ONE (10:00)
[2018-01-09] MEDS: TAMSULOSIN HCL 0.4 MG CAP.ER.24H (FP) PO SCH ×2 (10:28→22:23)
[2018-01-09] MEDS: NICOTINE 21 MG/24 HOURS TOPICAL PATCH TD SCH (10:29)
[2018-01-09] MEDS: SERTRALINE HCL 50 MG TABLET (FP) PO SCH (10:29)
[2018-01-09] MEDS: PRENATAL VITAMINS W/ FOLIC ACID TABLET (FP) PO SCH (10:29)
[2018-01-09] MEDS: risperiDONE 1 MG TABLET (FP) PO SCH ×2 (10:29→22:23)
--- NOTE | 2018-01-09 11:31 | PN ---
S Progress Note Note: PATIENT TOLERATING DETOX WELL. C/O MILD BODY ACHES. DENIES HEADACHE, SWEATING AND N/V/D. Laboratory Tests 01/05/18 01/06/18 01/06/18 10:00 08:00 08:00 WBC 4.9 RBC 5.25 Hgb 15.5 Hct 46.9 MCV 89.2 MCH 29.5 MCHC 33.1 RDW 13.6 Plt Count 97 L D MPV 9.9 Sodium Potassium Chloride Carbon Dioxide Anion Gap BUN Creatinine Creat Clearance w eGFR Random Glucose Calcium Total Bilirubin AST ALT Alkaline Phosphatase Total Protein Albumin Urine Color Manju Urine Appearance Cloudy Urine pH 5.0 Ur Specific [place] 1.020 Urine Protein Negative Urine Glucose (UA) Negative Urine Ketones Negative Urine Blood 2+ H Urine Nitrite Negative Urine Bilirubin Negative Urine Urobilinogen Negative Ur Leukocyte Esterase Negative Urine WBC (Auto) 7 Urine RBC (Auto) 32 Calcium Oxalate Crystal Rare Urine Mucus Moderate RPR Titer HIV 1&2 Antibody Screen Negative HIV P24 Antigen Negative 01/06/18 01/06/18 08:00 08:00 WBC RBC Hgb Hct MCV MCH MCHC RDW Plt Count MPV Sodium 140 Potassium 3.9 Chloride 108 H Carbon Dioxide 26 Anion Gap 6 L BUN 19 H Creatinine 0.9 Creat Clearance w eGFR > 60 Random Glucose 91 Calcium 8.1 L Total Bilirubin 0.4 AST 33 ALT 60 Alkaline Phosphatase 122 H Total Protein 6.1 L Albumin 3.1 L Urine Color Urine Appearance Urine pH Ur Specific [place] Urine Protein Urine Glucose (UA) Urine Ketones Urine Blood Urine Nitrite Urine Bilirubin Urine Urobilinogen Ur Leukocyte Esterase Urine WBC (Auto) Urine RBC (Auto) Calcium Oxalate Crystal Urine Mucus RPR Titer Nonreactive HIV 1&2 Antibody Screen HIV P24 Antigen SKIN WARM AND DRY CAR S1S2 RESP CTA BL GI SOFT, BS+, NT EXT FULL ROM A/P WITHDRAWAL SYNDROME CONTINUE DETOX ENCOURAGE ORAL FLUIDS
[2018-01-09] MEDS: THIAMINE HCL 100 MG TABLET (FP) PO SCH (22:23)
[2018-01-10] MEDS ORDERED: METHADONE HCL 5 MG TABLET (FOR DETOX USE ONLY) PO ONE (06:00)
[2018-01-10 06:36] VITALS: BP 134/89; PULSE 58; TEMP 97.9
--- NOTE | 2018-01-10 10:34 | DS ---
[facility] Detox Discharge Summary Admission Date: 01/05/18 Discharge Date: 01/10/18 - History Present History: Opioid Dependence - Physical Exam Results Vital Signs: Vital Signs Temperature 97.9 F 01/10/18 06:35 Pulse Rate 58 L 01/10/18 06:35 Respiratory Rate 18 01/10/18 06:35 Blood Pressure 134/89 01/10/18 06:35 O2 Sat by Pulse Oximetry (%) Pertinent Admission Physical Exam Findings: PATIENT TOLERATED DETOX REGIMEN WITHOUT ADVERSE REACTION. MEDICALLY STABLE AND DENIES SI/HI. PATIENT ENCOURAGED TO ATTEND GROUP MEETINGS TO PREVENT RELAPSE AND TO GO TO ER IF WITHDRAWAL SYMPTOMS OCCUR. PATIENT ACCEPTED REFERRAL TO [facility] AND F/U WITHIN ONE WEEK OF D/C. - Treatment Hospital Course: Detox Protocol Followed, Detoxed Safely, Responded well, Discharged Condition Good, Rehab Referral Accepted Patient has Accepted a Rehab Referral to: [facility] - Medication Discharge Medications: Ambulatory Orders Sertraline HCl [Zoloft -] 50 mg PO DAILY 12/06/16 Tamsulosin HCl [Flomax] 0.4 mg PO BID 12/06/16 Albuterol Sulfate Inhaler - [Ventolin HFA Inhaler -] 2 inh PO Q4H PRN #1 inhaler 01/09/18 - Diagnosis (1) Opioid dependence with withdrawal Status: Resolved - AMA Did Patient Leave Against Medical Advice: No
== END 2018-01-10 08:38 | disposition home or self-care (01) | DRG 773 ==
LOC: YASAS 13:00 → Y3N 15:33
PROC: HZ2ZZZZ Detoxification Services for Substance Abuse Treatment (ICD-10-PCS; principal; 2018-01-05)
DX: F11.23 Opioid dependence with withdrawal (principal); F13.230 Sedative, hypnotic or anxiolytic dependence with withdrawal, uncomplicated; F17.210 Nicotine dependence, cigarettes, uncomplicated; F25.9 Schizoaffective disorder, unspecified; F20.9 Schizophrenia, unspecified; F31.9 Bipolar disorder, unspecified; J44.9 Chronic obstructive pulmonary disease, unspecified; J45.20 Mild intermittent asthma, uncomplicated; M54.5 Low back pain; G89.29 Other chronic pain; R76.11 Nonspecific reaction to tuberculin skin test without active tuberculosis; B18.2 Chronic viral hepatitis C; N40.0 Benign prostatic hyperplasia without lower urinary tract symptoms; Z87.438 Personal history of other diseases of male genital organs; Z86.69 Personal history of other diseases of the nervous system and sense organs; Z87.898 Personal history of other specified conditions; Z91.5 Personal history of self-harm
CPT/HCPCS: 36415; 71046-TC-FY; 80053; 81003; 81015; 85027; 86593; 87389; 93005; 93010; J2794

== ENCOUNTER 2018-07-17 09:13 | Inpatient (IN) | payer OTHER ==
[2018-07-17 09:42] VITALS: BMI 29.2
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
[2018-07-17] MEDS ORDERED: MAGNESIUM HYDROX 2400MG/30ML ORAL SUSPENSION 30 ML CUP PO PRN (10:38)
[2018-07-17] MEDS ORDERED: BISMUTH SUBSALICYLATE 524 MG/30 ML UD PO PRN (10:38)
[2018-07-17] MEDS ORDERED: hydrOXYzine PAMOATE 25 MG CAPSULE (FP) PO PRN (10:38)
[2018-07-17] MEDS ORDERED: cloNIDine HCL 0.1 MG TABLET PO PRN (10:38)
[2018-07-17] MEDS ORDERED: ACETAMINOPHEN 325 MG TABLET (FP) PO PRN ×2 (10:38)
[2018-07-17] MEDS ORDERED: MENTHOL/PHENOL 1 EACH UD MM PRN (10:38)
[2018-07-17] MEDS ORDERED: MAGNESIUM CITRATE 300 ML BOTTLE PO PRN (10:38)
[2018-07-17] MEDS ORDERED: IBUPROFEN 400 MG TABLET (FP) PO PRN (10:38)
[2018-07-17] MEDS ORDERED: METHOCARBAMOL 500 MG TABLET PO PRN (10:38)
[2018-07-17] MEDS ORDERED: NICOTINE POLACRILEX 2 MG GUM BUC PRN (10:38)
[2018-07-17] MEDS ORDERED: ALBUTEROL SO4 8 GM HFA INHALER IH PRN (10:51)
[2018-07-17] MEDS ORDERED: METHADONE HCL 10 MG TABLET (FOR DETOX USE ONLY) PO ONE ×2 (11:15→23:00)
[2018-07-17] MEDS: NICOTINE 21 MG/24 HOURS TOPICAL PATCH TD SCH (11:26)
[2018-07-17 15:46] LABS: ALBUMIN 3.7 g/dl (3.4-5.0); ALK PHOS 133 U/L (45-117); ANION GAP 6 MMOL/L (8-16); BILIRUBIN,TOTAL 0.6 mg/dL (0.2-1); BLOOD UREA NITROGEN 17 mg/dL (7-18); CALCIUM 8.8 mg/dL (8.5-10.1); CHLORIDE 108 mmol/L (98-107); CO2 27 mmol/L (21-32); CREATININE 1.2 mg/dL (0.55-1.3); GLUCOSE,RANDOM 112 mg/dL (74-106); POTASSIUM 3.9 mmol/L (3.5-5.1); SGOT/AST 32 U/L (15-37); SGPT/ALT 49 U/L (13-61); SODIUM 141 mmol/L (136-145); TOT PROT 6.7 g/dl (6.4-8.2)
[2018-07-17 15:50] LABS: HEMATOCRIT 47.8 % (35.4-49); HEMOGLOBIN 16.1 GM/dL (11.7-16.9); MCH 30.7 pg (25.7-33.7); MCHC 33.7 g/dl (32.0-35.9); MEAN CELL VOLUME 91.2 fl (80-96); MEAN PLT VOLUME 10.6 fl (7.5-11.1); PLATELET COUNT 98 K/MM3 (134-434); RBC 5.24 M/mm3 (4.00-5.60); RDW 14.1 % (11.9-15.9); WHITE BLOOD COUNT 5.6 K/mm3 (4.0-10.0)
[2018-07-17 19:47] LABS: URINE COLOR YELLOW
[2018-07-17 19:48] LABS: PH,URINE 6.5 (5.0-8.0); URINE APPEARANCE CLEAR; URINE BILIRUBIN NEGATIVE (NEGATIVE); URINE GLUCOSE (UA) NEGATIVE (NEGATIVE); URINE KETONE NEGATIVE (NEGATIVE); URINE LEUK ESTERASE NEGATIVE (NEGATIVE); URINE NITRITE NEGATIVE (NEGATIVE); URINE PROTEIN 1+ (NEGATIVE)
[2018-07-17] MEDS: THIAMINE HCL 100 MG TABLET (FP) PO SCH (22:04)
[2018-07-17] MEDS: MELATONIN 5 MG TABLETS PO PRN (22:04)
[2018-07-17 23:43] LABS: URINE BACTERIA FEW /hpf (NEGATIVE); URINE RBC 0-3 /hpf (0-4); URINE WBC 0 /hpf (0-5)
[2018-07-18] MEDS: diazePAM 5 MG TABLET PO PRN ×3 (00:44→22:02)
[2018-07-18] MEDS: TAMSULOSIN HCL 0.4 MG CAP PO SCH (09:54)
[2018-07-18] MEDS: PRENATAL VITAMINS W/ FOLIC ACID TABLET (FP) PO SCH (09:54)
[2018-07-18] MEDS: NICOTINE 21 MG/24 HOURS TOPICAL PATCH TD SCH (09:56)
[2018-07-18] MEDS ORDERED: METHADONE HCL 10 MG TABLET (FOR DETOX USE ONLY) PO ONE (10:00)
--- NOTE | 2018-07-18 11:35 | PN ---
BHS COWS - Scale Resting Pulse: 1= [place] 81-100 Sweatin=Flushed/Facial Moisture Restless Observation: 1= Difficult to Sit Still Pupil Size: 0= Normal to Room Light Bone or Joint Aches: 2= Severe Diffuse Aches Runny Nose/ Eye Tearin= Runny Nose/Eyes GI Upset > 30mins: 1= Stomach Cramp Tremor Observation of Outstretched Hands: 2= Slight Tremor Visible Yawning Observation: 2= >3x During Session Anxiety or Irritability: 2=Irritable/Anxious Goose Flesh Skin: 0=Smooth Skin COWS Score: 15 BHS Progress Note (SOAP) Subjective: interrupted sleep agitation anxiety sweats insomnia Objective: 07/18/18 13:39 Vital Signs Temperature 98.2 F 07/18/18 13:22 Pulse Rate 77 07/18/18 13:22 Respiratory Rate 19 07/18/18 13:22 Blood Pressure 114/61 07/18/18 13:22 O2 Sat by Pulse Oximetry (%) Laboratory Tests 07/17/18 07/17/18 07/17/18 11:00 11:00 11:00 WBC 5.6 RBC 5.24 Hgb 16.1 Hct 47.8 MCV 91.2 MCH 30.7 MCHC 33.7 RDW 14.1 Plt Count 98 L MPV 10.6 Sodium 141 Potassium 3.9 Chloride 108 H Carbon Dioxide 27 Anion Gap 6 L BUN 17 Creatinine 1.2 Creat Clearance w eGFR 61.76 Random Glucose 112 H Calcium 8.8 Total Bilirubin 0.6 AST 32 ALT 49 Alkaline Phosphatase 133 H Total Protein 6.7 Albumin 3.7 Urine Color Urine Appearance Urine pH Ur Specific [place] Urine Protein Urine Glucose (UA) Urine Ketones Urine Blood Urine Nitrite Urine Bilirubin Urine Urobilinogen Ur Leukocyte Esterase Urine WBC (Auto) Urine RBC (Auto) Urine Bacteria (Auto) RPR Titer Nonreactive HIV 1&2 Antibody Screen HIV P24 Antigen 07/17/18 07/17/18 11:20 14:45 WBC RBC Hgb Hct MCV MCH MCHC RDW Plt Count MPV Sodium Potassium Chloride Carbon Dioxide Anion Gap BUN Creatinine Creat Clearance w eGFR Random Glucose Calcium Total Bilirubin AST ALT Alkaline Phosphatase Total Protein Albumin Urine Color Yellow Urine Appearance Clear Urine pH 6.5 D Ur Specific [place] 1.020 Urine Protein 1+ H Urine Glucose (UA) Negative Urine Ketones Negative Urine Blood Trace-intact Urine Nitrite Negative Urine Bilirubin Negative Urine Urobilinogen 1.0 Ur Leukocyte Esterase Negative Urine WBC (Auto) 0 Urine RBC (Auto) 0-3 Urine Bacteria (Auto) Few RPR Titer HIV 1&2 Antibody Screen Negative HIV P24 Antigen Negative aaox3 ambulating no acute distress Assessment: 07/18/18 13:39 withdrawal sx Plan: continue detox increase fluids psych ordered visitirl 50mg ordered
[2018-07-18] MEDS ORDERED: traZODone HCL 50 MG TABLET (FP) PO SCH (22:00)
[2018-07-18] MEDS: MELATONIN 5 MG TABLETS PO PRN (22:03)
[2018-07-18] MEDS: THIAMINE HCL 100 MG TABLET (FP) PO SCH (22:03)
[2018-07-18] MEDS: hydrOXYzine PAMOATE 50 MG CAPSULE (FP) PO PRN (22:03)
[2018-07-18] MEDS: MAG HYDROX/AL HYDROX/SIMETH 30 ML UNIT-DOSE CUP PO PRN (23:21)
[2018-07-19] MEDS ORDERED: METHADONE HCL 10 MG TABLET (FOR DETOX USE ONLY) PO ONE (10:00)
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
[2018-07-19] MEDS: PRENATAL VITAMINS W/ FOLIC ACID TABLET (FP) PO SCH (11:08)
[2018-07-19] MEDS: diazePAM 5 MG TABLET PO PRN ×2 (11:08→20:39)
[2018-07-19] MEDS: TAMSULOSIN HCL 0.4 MG CAP PO SCH (11:08)
[2018-07-19] MEDS: SERTRALINE HCL 50 MG TABLET (FP) PO SCH (11:09)
--- NOTE | 2018-07-19 11:17 | PN ---
BHS Progress Note Note: Due to lab result of low platelet count; Ibuprofen d/c as per pharmacy recommendation.
[2018-07-19] MEDS: NICOTINE 21 MG/24 HOURS TOPICAL PATCH TD SCH (12:47)
--- NOTE | 2018-07-19 13:30 | PN ---
BHS COWS - Scale Resting Pulse: 0= ND 80 or Below Sweatin= Chills/Flushing Restless Observation: 0= Sits Still Pupil Size: 0= Normal to Room Light Bone or Joint Aches: 0= None Runny Nose/ Eye Tearin= Nasal Congestion GI Upset > 30mins: 0= None Tremor Observation of Outstretched Hands: 0= None Yawning Observation: 1= 1-2x During Session Anxiety or Irritability: 2=Irritable/Anxious Goose Flesh Skin: 3=Piloerection COWS Score: 8 BHS Progress Note (SOAP) Subjective: Sweating, Anxious, Interrupted Sleep. Objective: PATIENT A & O X 2 (UNCERTAIN ABOUT CURRENT DAY / DATE). PATIENT OBSERVED AMBULATING ON UNIT. IN NO ACUTE DISTRESS. 07/19/18 13:30 Vital Signs Temperature 97.3 F L 07/19/18 10:46 Pulse Rate 78 07/19/18 10:46 Respiratory Rate 18 07/19/18 10:46 Blood Pressure 113/66 07/19/18 10:46 O2 Sat by Pulse Oximetry (%) Laboratory Tests 07/17/18 07/17/18 07/17/18 11:00 11:00 11:00 WBC 5.6 RBC 5.24 Hgb 16.1 Hct 47.8 MCV 91.2 MCH 30.7 MCHC 33.7 RDW 14.1 Plt Count 98 L MPV 10.6 Sodium 141 Potassium 3.9 Chloride 108 H Carbon Dioxide 27 Anion Gap 6 L BUN 17 Creatinine 1.2 Creat Clearance w eGFR 61.76 Random Glucose 112 H Calcium 8.8 Total Bilirubin 0.6 AST 32 ALT 49 Alkaline Phosphatase 133 H Total Protein 6.7 Albumin 3.7 Urine Color Urine Appearance Urine pH Ur Specific [place] Urine Protein Urine Glucose (UA) Urine Ketones Urine Blood Urine Nitrite Urine Bilirubin Urine Urobilinogen Ur Leukocyte Esterase Urine WBC (Auto) Urine RBC (Auto) Urine Bacteria (Auto) RPR Titer Nonreactive HIV 1&2 Antibody Screen HIV P24 Antigen 07/17/18 07/17/18 11:20 14:45 WBC RBC Hgb Hct MCV MCH MCHC RDW Plt Count MPV Sodium Potassium Chloride Carbon Dioxide Anion Gap BUN Creatinine Creat Clearance w eGFR Random Glucose Calcium Total Bilirubin AST ALT Alkaline Phosphatase Total Protein Albumin Urine Color Yellow Urine Appearance Clear Urine pH 6.5 D Ur Specific [place] 1.020 Urine Protein 1+ H Urine Glucose (UA) Negative Urine Ketones Negative Urine Blood Trace-intact Urine Nitrite Negative Urine Bilirubin Negative Urine Urobilinogen 1.0 Ur Leukocyte Esterase Negative Urine WBC (Auto) 0 Urine RBC (Auto) 0-3 Urine Bacteria (Auto) Few RPR Titer HIV 1&2 Antibody Screen Negative HIV P24 Antigen Negative LABS NOTED. Assessment: 07/19/18 13:30 WITHDRAWAL SYMPTOMS. THROMBOCYTOPENIA. 07/19/18 13:31 Plan: CONTINUE DETOX.
[2018-07-19] MEDS: TRIHEXYPHENIDYL HCL 5 MG TABLET PO SCH (14:12)
[2018-07-19] MEDS ORDERED: risperiDONE 3 MG TABLET PO SCH (22:00)
[2018-07-19] MEDS: THIAMINE HCL 100 MG TABLET (FP) PO SCH (22:10)
[2018-07-19] MEDS: risperiDONE 1 MG TABLET (FP) PO SCH (22:10)
[2018-07-19] MEDS: hydrOXYzine PAMOATE 50 MG CAPSULE (FP) PO PRN (22:11)
[2018-07-19] MEDS: MAG HYDROX/AL HYDROX/SIMETH 30 ML UNIT-DOSE CUP PO PRN (22:28)
[2018-07-20] MEDS ORDERED: METHADONE HCL 10 MG TABLET (FOR DETOX USE ONLY) PO ONE (10:00)
[2018-07-20] MEDS: PRENATAL VITAMINS W/ FOLIC ACID TABLET (FP) PO SCH (10:46)
[2018-07-20] MEDS: TAMSULOSIN HCL 0.4 MG CAP PO SCH (10:46)
[2018-07-20] MEDS: SERTRALINE HCL 50 MG TABLET (FP) PO SCH (10:46)
[2018-07-20] MEDS: TRIHEXYPHENIDYL HCL 5 MG TABLET PO SCH (10:47)
[2018-07-20] MEDS: NICOTINE 21 MG/24 HOURS TOPICAL PATCH TD SCH (10:47)
--- NOTE | 2018-07-20 14:17 | PN ---
[facility] Progress Note Note: Vital Signs Temperature 97.5 F L 07/20/18 11:29 Pulse Rate 81 07/20/18 11:29 Respiratory Rate 18 07/20/18 11:29 Blood Pressure 100/79 07/20/18 11:29 O2 Sat by Pulse Oximetry (%) Laboratory Last Values WBC 5.6 K/mm3 (4.0-10.0) 07/17/18 11:00 RBC 5.24 M/mm3 (4.00-5.60) 07/17/18 11:00 Hgb 16.1 GM/dL (11.7-16.9) 07/17/18 11:00 Hct 47.8 % (35.4-49) 07/17/18 11:00 MCV 91.2 fl (80-96) 07/17/18 11:00 MCH 30.7 pg (25.7-33.7) 07/17/18 11:00 MCHC 33.7 g/dl (32.0-35.9) 07/17/18 11:00 RDW 14.1 % (11.9-15.9) 07/17/18 11:00 Plt Count 98 K/MM3 (134-434) L 07/17/18 11:00 MPV 10.6 fl (7.5-11.1) 07/17/18 11:00 Sodium 141 mmol/L (136-145) 07/17/18 11:00 Potassium 3.9 mmol/L (3.5-5.1) 07/17/18 11:00 Chloride 108 mmol/L (98-107) H 07/17/18 11:00 Carbon Dioxide 27 mmol/L (21-32) 07/17/18 11:00 Anion Gap 6 MMOL/L (8-16) L 07/17/18 11:00 BUN 17 mg/dL (7-18) 07/17/18 11:00 Creatinine 1.2 mg/dL (0.55-1.3) 07/17/18 11:00 Creat Clearance w eGFR 61.76 (>60) 07/17/18 11:00 Random Glucose 112 mg/dL (74-106) H 07/17/18 11:00 Calcium 8.8 mg/dL (8.5-10.1) 07/17/18 11:00 Total Bilirubin 0.6 mg/dL (0.2-1) 07/17/18 11:00 AST 32 U/L (15-37) 07/17/18 11:00 ALT 49 U/L (13-61) 07/17/18 11:00 Alkaline Phosphatase 133 U/L (45-117) H 07/17/18 11:00 Total Protein 6.7 g/dl (6.4-8.2) 07/17/18 11:00 Albumin 3.7 g/dl (3.4-5.0) 07/17/18 11:00 Urine Color Yellow 07/17/18 14:45 Urine Appearance Clear 07/17/18 14:45 Urine pH 6.5 (5.0-8.0) D 07/17/18 14:45 Ur Specific [place] 1.020 (1.010-1.035) 07/17/18 14:45 Urine Protein 1+ (NEGATIVE) H 07/17/18 14:45 Urine Glucose (UA) Negative (NEGATIVE) 07/17/18 14:45 Urine Ketones Negative (NEGATIVE) 07/17/18 14:45 Urine Blood Trace-intact (NEGATIVE) 07/17/18 14:45 Urine Nitrite Negative (NEGATIVE) 07/17/18 14:45 Urine Bilirubin Negative (NEGATIVE) 07/17/18 14:45 Urine Urobilinogen 1.0 mg/dL (0.2-1.0) 07/17/18 14:45 Ur Leukocyte Esterase Negative (NEGATIVE) 07/17/18 14:45 Urine WBC (Auto) 0 /hpf (0-5) 07/17/18 14:45 Urine RBC (Auto) 0-3 /hpf (0-4) 07/17/18 14:45 Urine Bacteria (Auto) Few /hpf (NEGATIVE) 07/17/18 14:45 RPR Titer Nonreactive (NONREACTIVE) 07/17/18 11:00 HIV 1&2 Antibody Screen Negative 07/17/18 11:20 HIV P24 Antigen Negative 07/17/18 11:20 c/o of fatigue, interrupted sleep , chills AOX3 no acute distress, ambulating in the unit withdrawal sx increase Po fluids continue detox Patient to follow up with primary care provider upon discharge re: thrombocytopenia
[2018-07-20] MEDS: MAG HYDROX/AL HYDROX/SIMETH 30 ML UNIT-DOSE CUP PO PRN (19:28)
[2018-07-20] MEDS: MELATONIN 5 MG TABLETS PO PRN (22:14)
[2018-07-20] MEDS: risperiDONE 1 MG TABLET (FP) PO SCH (22:14)
[2018-07-20] MEDS: THIAMINE HCL 100 MG TABLET (FP) PO SCH (22:14)
[2018-07-20] MEDS ORDERED: PANTOPRAZOLE 20 MG TABLET (FP) PO ONE (22:15)
[2018-07-21] MEDS ORDERED: METHADONE HCL 5 MG TABLET (FOR DETOX USE ONLY) PO ONE (06:00)
[2018-07-21 06:39] VITALS: BP 100/52; PULSE 76; TEMP 98.1
--- NOTE | 2018-07-21 08:46 | DS ---
[facility] Detox Discharge Summary Admission Date: 07/17/18 Discharge Date: 07/21/18 - History Present History: Alcohol Dependence, Opioid Dependence Additional Comments: PT will go home and call [facility] on Monday - Physical Exam Results Vital Signs: Vital Signs Temperature 98.1 F 07/21/18 06:00 Pulse Rate 76 07/21/18 06:00 Respiratory Rate 18 07/21/18 06:00 Blood Pressure 100/52 L 07/21/18 06:00 O2 Sat by Pulse Oximetry (%) Pertinent Admission Physical Exam Findings: withdrawal symptoms Laboratory Last Values WBC 5.6 K/mm3 (4.0-10.0) 07/17/18 11:00 RBC 5.24 M/mm3 (4.00-5.60) 07/17/18 11:00 Hgb 16.1 GM/dL (11.7-16.9) 07/17/18 11:00 Hct 47.8 % (35.4-49) 07/17/18 11:00 MCV 91.2 fl (80-96) 07/17/18 11:00 MCH 30.7 pg (25.7-33.7) 07/17/18 11:00 MCHC 33.7 g/dl (32.0-35.9) 07/17/18 11:00 RDW 14.1 % (11.9-15.9) 07/17/18 11:00 Plt Count 98 K/MM3 (134-434) L 07/17/18 11:00 MPV 10.6 fl (7.5-11.1) 07/17/18 11:00 Sodium 141 mmol/L (136-145) 07/17/18 11:00 Potassium 3.9 mmol/L (3.5-5.1) 07/17/18 11:00 Chloride 108 mmol/L (98-107) H 07/17/18 11:00 Carbon Dioxide 27 mmol/L (21-32) 07/17/18 11:00 Anion Gap 6 MMOL/L (8-16) L 07/17/18 11:00 BUN 17 mg/dL (7-18) 07/17/18 11:00 Creatinine 1.2 mg/dL (0.55-1.3) 07/17/18 11:00 Creat Clearance w eGFR 61.76 (>60) 07/17/18 11:00 Random Glucose 112 mg/dL (74-106) H 07/17/18 11:00 Calcium 8.8 mg/dL (8.5-10.1) 07/17/18 11:00 Total Bilirubin 0.6 mg/dL (0.2-1) 07/17/18 11:00 AST 32 U/L (15-37) 07/17/18 11:00 ALT 49 U/L (13-61) 07/17/18 11:00 Alkaline Phosphatase 133 U/L (45-117) H 07/17/18 11:00 Total Protein 6.7 g/dl (6.4-8.2) 07/17/18 11:00 Albumin 3.7 g/dl (3.4-5.0) 07/17/18 11:00 Urine Color Yellow 07/17/18 14:45 Urine Appearance Clear 07/17/18 14:45 Urine pH 6.5 (5.0-8.0) D 07/17/18 14:45 Ur Specific [place] 1.020 (1.010-1.035) 07/17/18 14:45 Urine Protein 1+ (NEGATIVE) H 07/17/18 14:45 Urine Glucose (UA) Negative (NEGATIVE) 07/17/18 14:45 Urine Ketones Negative (NEGATIVE) 07/17/18 14:45 Urine Blood Trace-intact (NEGATIVE) 07/17/18 14:45 Urine Nitrite Negative (NEGATIVE) 07/17/18 14:45 Urine Bilirubin Negative (NEGATIVE) 07/17/18 14:45 Urine Urobilinogen 1.0 mg/dL (0.2-1.0) 07/17/18 14:45 Ur Leukocyte Esterase Negative (NEGATIVE) 07/17/18 14:45 Urine WBC (Auto) 0 /hpf (0-5) 07/17/18 14:45 Urine RBC (Auto) 0-3 /hpf (0-4) 07/17/18 14:45 Urine Bacteria (Auto) Few /hpf (NEGATIVE) 07/17/18 14:45 RPR Titer Nonreactive (NONREACTIVE) 07/17/18 11:00 HIV 1&2 Antibody Screen Negative 07/17/18 11:20 HIV P24 Antigen Negative 07/17/18 11:20 labs noted - Treatment Hospital Course: Detox Protocol Followed, Discharged Condition Good - Medication Discharge Medications: Ambulatory Orders Tamsulosin HCl [Flomax] 0.4 mg PO BID 12/06/16 Albuterol Sulfate Inhaler - [Ventolin HFA Inhaler -] 2 inh PO Q4H PRN #1 inhaler 01/09/18 - Diagnosis (1) Substance-induced sleep disorder Status: Acute (2) BPH (benign prostatic hyperplasia) Status: Chronic Qualifiers: Lower urinary tract symptom presence: unspecified whether lower urinary tract symptoms present Qualified Code(s): N40.0 - Benign prostatic hyperplasia without lower urinary tract symptoms (3) Schizophrenia Status: Chronic Qualifiers: Schizophrenia type: unspecified Qualified Code(s): F20.9 - Schizophrenia, unspecified (4) History of pilonidal cyst Status: Resolved (5) Opioid dependence with withdrawal Status: Acute - AMA Did Patient Leave Against Medical Advice: No
[2018-07-21] MEDS ORDERED: PANTOPRAZOLE 20 MG TABLET (FP) PO SCH (10:00)
== END 2018-07-21 09:12 | disposition home or self-care (01) | DRG 773 ==
LOC: YASAS 09:13 → Y6N 11:09
PROVIDERS: ADMIT Surgery; ATTEND Surgery
PROC: HZ2ZZZZ Detoxification Services for Substance Abuse Treatment (ICD-10-PCS; principal; 2018-07-17)
DX: F11.23 Opioid dependence with withdrawal (principal); F17.210 Nicotine dependence, cigarettes, uncomplicated; F19.282 Other psychoactive substance dependence with psychoactive substance-induced sleep disorder; F20.9 Schizophrenia, unspecified; F31.9 Bipolar disorder, unspecified; N40.0 Benign prostatic hyperplasia without lower urinary tract symptoms; D69.6 Thrombocytopenia, unspecified; J44.9 Chronic obstructive pulmonary disease, unspecified; M54.5 Low back pain; G89.29 Other chronic pain; R76.11 Nonspecific reaction to tuberculin skin test without active tuberculosis; Z91.14 Patient's other noncompliance with medication regimen; Z87.438 Personal history of other diseases of male genital organs; Z87.442 Personal history of urinary calculi; Z91.5 Personal history of self-harm
CPT/HCPCS: 36415; 80053; 81003; 85027; 86593; 87389; J2794

== ENCOUNTER 2018-10-10 10:34 | Inpatient (IN) | payer OTHER ==
[2018-10-10 13:28] VITALS: BMI 29.3
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
[2018-10-10] MEDS ORDERED: METHOCARBAMOL 500 MG TABLET PO PRN (16:22)
[2018-10-10] MEDS ORDERED: BISMUTH SUBSALICYLATE 524 MG/30 ML UD PO PRN (16:22)
[2018-10-10] MEDS ORDERED: ACETAMINOPHEN 325 MG TABLET (FP) PO PRN ×2 (16:22)
[2018-10-10] MEDS ORDERED: MAGNESIUM CITRATE 300 ML BOTTLE PO PRN (16:22)
[2018-10-10] MEDS ORDERED: cloNIDine HCL 0.1 MG TABLET PO PRN (16:22)
[2018-10-10] MEDS ORDERED: MENTHOL/PHENOL 1 EACH UD MM PRN (16:22)
[2018-10-10] MEDS ORDERED: MAGNESIUM HYDROX 2400MG/30ML ORAL SUSPENSION 30 ML CUP PO PRN (16:22)
[2018-10-10] MEDS ORDERED: MAG HYDROX/AL HYDROX/SIMETH 30 ML UNIT-DOSE CUP PO PRN (16:22)
[2018-10-10] MEDS ORDERED: IBUPROFEN 400 MG TABLET (FP) PO PRN (16:22)
[2018-10-10] MEDS ORDERED: ALBUTEROL SO4 8 GM HFA INHALER IH PRN (16:25)
--- NOTE | 2018-10-10 16:44 | PN ---
Teaching Attending Note Name of Resident: Shani Flower ATTENDING PHYSICIAN STATEMENT I saw and evaluated the patient. I reviewed the resident's note and discussed the case with the resident. I agree with the resident's findings and plan as documented. SUBJECTIVE: pt here for opioid detox< states that he is tired of using- states he is using any of these opioids: heroin, methadone, suboxone depending on how much money he has. Vital Signs - 24 hr 10/10/18 13:18 Temperature 97.6 F Pulse Rate 89 Respiratory 18 Rate Blood Pressure 110/68 OBJECTIVE: tremulous, nausea/vomiting ASSESSMENT AND PLAN: OPioid detox with methadone, d/w pt options of suboxone or methadone MAT
[2018-10-10] MEDS ORDERED: METHADONE HCL 10 MG TABLET (FOR DETOX USE ONLY) PO ONE (17:15)
[2018-10-10] MEDS: NICOTINE 14 MG/24 HOURS TOPICAL PATCH TD SCH (17:23)
[2018-10-10] MEDS: hydrOXYzine HCL 25 MG TABLET (FP) PO PRN (17:27)
[2018-10-10] MEDS: TAMSULOSIN HCL 0.4 MG CAP PO SCH (22:48)
[2018-10-10] MEDS: MELATONIN 5 MG TABLETS PO PRN (22:48)
[2018-10-10] MEDS: THIAMINE HCL 100 MG TABLET (FP) PO SCH (22:48)
[2018-10-11 06:26] LABS: EPI CELLS 0.7 /HPF (0-5/HPF); HYALINE CASTS 2 /lpf (0-8); URINE APPEARANCE CLEAR; URINE BILIRUBIN NEGATIVE (NEGATIVE); URINE COLOR YELLOW; URINE GLUCOSE (UA) NEGATIVE (NEGATIVE); URINE KETONE NEGATIVE (NEGATIVE); URINE LEUK ESTERASE NEGATIVE (NEGATIVE); URINE NITRITE NEGATIVE (NEGATIVE); URINE PROTEIN TRACE (NEGATIVE); URINE RBC 4 /hpf (0-4); URINE WBC 3 /hpf (0-5)
[2018-10-11] MEDS ORDERED: METHADONE HCL 5 MG TABLET (FOR DETOX USE ONLY) ONE (09:54)
[2018-10-11] MEDS ORDERED: METHADONE HCL 10 MG TABLET (FOR DETOX USE ONLY) ONE (09:54)
--- NOTE | 2018-10-11 09:54 | PN ---
S COWS - Scale Resting Pulse: 1= [place] 81-100 Sweatin= Chills/Flushing Restless Observation: 1= Difficult to Sit Still Pupil Size: 1= Pupils >than Normal Bone or Joint Aches: 2= Severe Diffuse Aches Runny Nose/ Eye Tearin= Nasal Congestion GI Upset > 30mins: 1= Stomach Cramp Tremor Observation of Outstretched Hands: 1= Tremor [place], Not Seen Yawning Observation: 1= 1-2x During Session Anxiety or Irritability: 2=Irritable/Anxious Goose Flesh Skin: 0=Smooth Skin COWS Score: 12 S Progress Note (SOAP) Subjective: alert,irritable,anxious,interrupted sleep,tremor,pain in the body and back Objective: 10/11/18 09:53 Vital Signs Temperature 98.1 F 10/11/18 09:28 Pulse Rate 87 10/11/18 09:28 Respiratory Rate 16 10/11/18 09:28 Blood Pressure 113/66 10/11/18 09:28 O2 Sat by Pulse Oximetry (%) Laboratory Last Values Urine Color Yellow 10/10/18 22:37 Urine Appearance Clear 10/10/18 22:37 Urine pH 6.0 (5.0-8.0) 10/10/18 22:37 Ur Specific [place] 1.022 (1.010-1.035) 10/10/18 22:37 Urine Protein Trace (NEGATIVE) 10/10/18 22:37 Urine Glucose (UA) Negative (NEGATIVE) 10/10/18 22:37 Urine Ketones Negative (NEGATIVE) 10/10/18 22:37 Urine Blood Trace (NEGATIVE) 10/10/18 22:37 Urine Nitrite Negative (NEGATIVE) 10/10/18 22:37 Urine Bilirubin Negative (NEGATIVE) 10/10/18 22:37 Urine Urobilinogen 1.0 mg/dL (0.2-1.0) 10/10/18 22:37 Ur Leukocyte Esterase Negative (NEGATIVE) 10/10/18 22:37 Urine WBC (Auto) 3 /hpf (0-5) 10/10/18 22:37 Urine RBC (Auto) 4 /hpf (0-4) 10/10/18 22:37 Urine Casts (Auto) 2 /lpf (0-8) 10/10/18 22:37 U Epithel Cells (Auto) 0.7 /HPF (0-5/HPF) 10/10/18 22:37 Urine Bacteria (Auto) 2.0 /hpf (NEGATIVE) 10/10/18 22:37 labs pending Assessment: 10/11/18 09:54 withdrawal symptom Plan: continue detox,methadone regimen
[2018-10-11] MEDS ORDERED: METHADONE (DETOX) 20 MG, METHADONE (DETOX) 5 MG PO ONE (10:00)
[2018-10-11 10:16] LABS: HEMOGLOBIN 15.4 GM/dL (11.7-16.9); MCHC 33.4 g/dl (32.0-35.9); MEAN CELL VOLUME 89.8 fl (80-96); MEAN PLT VOLUME 10.8 fl (7.5-11.1); RBC 5.12 M/mm3 (4.00-5.60); RDW 14.2 % (11.9-15.9); WHITE BLOOD COUNT 4.6 K/mm3 (4.0-10.0)
[2018-10-11 10:35] LABS: ALBUMIN 3.2 g/dl (3.4-5.0); BILIRUBIN,TOTAL 0.5 mg/dL (0.2-1); BLOOD UREA NITROGEN 19.8 mg/dL (7-18); CALCIUM 8.5 mg/dL (8.5-10.1); CREATININE 1.2 mg/dL (0.55-1.3); POTASSIUM 4.1 mmol/L (3.5-5.1); TOT PROT 6.2 g/dl (6.4-8.2)
[2018-10-11 10:36] LABS: PLATELET COUNT 104 K/MM3 (134-434)
[2018-10-11] MEDS: TAMSULOSIN HCL 0.4 MG CAP PO SCH ×2 (11:55→22:12)
[2018-10-11] MEDS: PRENATAL VITAMINS W/ FOLIC ACID TABLET (FP) PO SCH (11:55)
[2018-10-11] MEDS: NICOTINE 14 MG/24 HOURS TOPICAL PATCH TD SCH (11:56)
[2018-10-11] MEDS ORDERED: NICOTINE POLACRILEX 2 MG GUM BUC PRN (16:50)
[2018-10-11] MEDS: THIAMINE HCL 100 MG TABLET (FP) PO SCH (22:12)
[2018-10-11] MEDS: MELATONIN 5 MG TABLETS PO PRN (22:12)
--- NOTE | 2018-10-12 09:19 | PN ---
[facility] COWS - Scale Resting Pulse: 0= [place] 80 or Below Sweatin= Chills/Flushing Restless Observation: 1= Difficult to Sit Still Pupil Size: 0= Normal to Room Light Bone or Joint Aches: 1= Mild Discomfort Runny Nose/ Eye Tearin= Runny Nose/Eyes GI Upset > 30mins: 1= Stomach Cramp Tremor Observation of Outstretched Hands: 1= Tremor [place], Not Seen Yawning Observation: 1= 1-2x During Session Anxiety or Irritability: 2=Irritable/Anxious Goose Flesh Skin: 0=Smooth Skin COWS Score: 10 S Progress Note (SOAP) Subjective: alert,irritable,anxious,interrupted sleep,tremor,pain in the body and back Objective: 10/12/18 09:16 Vital Signs Temperature 98.1 F 10/11/18 21:52 Pulse Rate 69 10/11/18 21:52 Respiratory Rate 18 10/12/18 03:30 Blood Pressure 100/67 10/11/18 21:52 O2 Sat by Pulse Oximetry (%) 10/12/18 09:16 Laboratory Last Values WBC 4.6 K/mm3 (4.0-10.0) 10/11/18 07:00 RBC 5.12 M/mm3 (4.00-5.60) 10/11/18 07:00 Hgb 15.4 GM/dL (11.7-16.9) 10/11/18 07:00 Hct 46.0 % (35.4-49) 10/11/18 07:00 MCV 89.8 fl (80-96) 10/11/18 07:00 MCH 30.0 pg (25.7-33.7) 10/11/18 07:00 MCHC 33.4 g/dl (32.0-35.9) 10/11/18 07:00 RDW 14.2 % (11.9-15.9) 10/11/18 07:00 Plt Count 104 K/MM3 (134-434) L 10/11/18 07:00 MPV 10.8 fl (7.5-11.1) 10/11/18 07:00 Sodium 144 mmol/L (136-145) 10/11/18 07:00 Potassium 4.1 mmol/L (3.5-5.1) 10/11/18 07:00 Chloride 112 mmol/L (98-107) H 10/11/18 07:00 Carbon Dioxide 29 mmol/L (21-32) 10/11/18 07:00 Anion Gap 4 MMOL/L (8-16) L 10/11/18 07:00 BUN 19.8 mg/dL (7-18) H 10/11/18 07:00 Creatinine 1.2 mg/dL (0.55-1.3) 10/11/18 07:00 Est GFR (CKD-EPI)AfAm 75.72 10/11/18 07:00 Est GFR (CKD-EPI)NonAf 65.33 10/11/18 07:00 Random Glucose 104 mg/dL (74-106) 10/11/18 07:00 Calcium 8.5 mg/dL (8.5-10.1) 10/11/18 07:00 Total Bilirubin 0.5 mg/dL (0.2-1) 10/11/18 07:00 AST 35 U/L (15-37) 10/11/18 07:00 ALT 46 U/L (13-61) 10/11/18 07:00 Alkaline Phosphatase 113 U/L (45-117) 10/11/18 07:00 Total Protein 6.2 g/dl (6.4-8.2) L 10/11/18 07:00 Albumin 3.2 g/dl (3.4-5.0) L 10/11/18 07:00 Urine Color Yellow 10/10/18 22:37 Urine Appearance Clear 10/10/18 22:37 Urine pH 6.0 (5.0-8.0) 10/10/18 22:37 Ur Specific [place] 1.022 (1.010-1.035) 10/10/18 22:37 Urine Protein Trace (NEGATIVE) 10/10/18 22:37 Urine Glucose (UA) Negative (NEGATIVE) 10/10/18 22:37 Urine Ketones Negative (NEGATIVE) 10/10/18 22:37 Urine Blood Trace (NEGATIVE) 10/10/18 22:37 Urine Nitrite Negative (NEGATIVE) 10/10/18 22:37 Urine Bilirubin Negative (NEGATIVE) 10/10/18 22:37 Urine Urobilinogen 1.0 mg/dL (0.2-1.0) 10/10/18 22:37 Ur Leukocyte Esterase Negative (NEGATIVE) 10/10/18 22:37 Urine WBC (Auto) 3 /hpf (0-5) 10/10/18 22:37 Urine RBC (Auto) 4 /hpf (0-4) 10/10/18 22:37 Urine Casts (Auto) 2 /lpf (0-8) 10/10/18 22:37 U Epithel Cells (Auto) 0.7 /HPF (0-5/HPF) 10/10/18 22:37 Urine Bacteria (Auto) 2.0 /hpf (NEGATIVE) 10/10/18 22:37 RPR Titer Nonreactive (NONREACTIVE) 10/11/18 07:00 Assessment: 10/12/18 09:17 withdrawal symptom Plan: continue detox methadone regimen,encourage oral fluid
[2018-10-12] MEDS: hydrOXYzine HCL 25 MG TABLET (FP) PO PRN (09:58)
[2018-10-12] MEDS: TAMSULOSIN HCL 0.4 MG CAP PO SCH ×2 (09:58→22:34)
[2018-10-12] MEDS: PRENATAL VITAMINS W/ FOLIC ACID TABLET (FP) PO SCH (09:58)
[2018-10-12] MEDS ORDERED: METHADONE HCL 10 MG TABLET (FOR DETOX USE ONLY) PO ONE (10:00)
[2018-10-12] MEDS: NICOTINE 14 MG/24 HOURS TOPICAL PATCH TD SCH (11:04)
[2018-10-12] MEDS: MELATONIN 5 MG TABLETS PO PRN (22:34)
[2018-10-12] MEDS: THIAMINE HCL 100 MG TABLET (FP) PO SCH (22:34)
[2018-10-13] MEDS ORDERED: METHADONE HCL 10 MG TABLET (FOR DETOX USE ONLY) ONE (09:31)
[2018-10-13] MEDS ORDERED: METHADONE HCL 5 MG TABLET (FOR DETOX USE ONLY) ONE (09:31)
--- NOTE | 2018-10-13 09:38 | PN ---
[facility] COWS - Scale Resting Pulse: 0= [place] 80 or Below Sweatin= Chills/Flushing Restless Observation: 1= Difficult to Sit Still Pupil Size: 0= Normal to Room Light Bone or Joint Aches: 2= Severe Diffuse Aches Runny Nose/ Eye Tearin= None GI Upset > 30mins: 0= None Tremor Observation of Outstretched Hands: 0= None Yawning Observation: 1= 1-2x During Session Anxiety or Irritability: 2=Irritable/Anxious Goose Flesh Skin: 0=Smooth Skin COWS Score: 7 [facility] Progress Note (SOAP) Subjective: c/o sweats, anxiety, headache, and irritability Objective: 10/13/18 09:37 Vital Signs 10/13/18 10/13/18 10/13/18 03:30 06:00 09:11 Temperature 97.9 F 98.2 F Pulse Rate 72 87 Respiratory 18 18 18 Rate Blood Pressure 115/72 103/57 L Assessment: 10/13/18 09:37 AOX3, in no acute respiratory distress. Full ROM, ambulating in the unit. mild withdrawal symptoms. Plan: continue detox.
[2018-10-13] MEDS ORDERED: METHADONE (DETOX) 10 MG, METHADONE (DETOX) 5 MG PO ONE (10:00)
[2018-10-13] MEDS: TAMSULOSIN HCL 0.4 MG CAP PO SCH ×2 (10:17→22:27)
[2018-10-13] MEDS: PRENATAL VITAMINS W/ FOLIC ACID TABLET (FP) PO SCH (10:17)
[2018-10-13] MEDS: NICOTINE 14 MG/24 HOURS TOPICAL PATCH TD SCH (10:18)
[2018-10-13] MEDS: hydrOXYzine HCL 25 MG TABLET (FP) PO PRN ×2 (17:13→22:27)
[2018-10-13 20:54] VITALS: PULSE 80
[2018-10-13] MEDS: MELATONIN 5 MG TABLETS PO PRN (22:27)
[2018-10-13] MEDS: THIAMINE HCL 100 MG TABLET (FP) PO SCH (22:28)
[2018-10-14 06:21] VITALS: BP 122/75; TEMP 97.9
[2018-10-14] MEDS ORDERED: METHADONE HCL 10 MG TABLET (FOR DETOX USE ONLY) PO ONE ×2 (08:55→10:00)
[2018-10-14] MEDS: NICOTINE 14 MG/24 HOURS TOPICAL PATCH TD SCH (09:40)
[2018-10-14] MEDS: PRENATAL VITAMINS W/ FOLIC ACID TABLET (FP) PO SCH (09:40)
[2018-10-14] MEDS: TAMSULOSIN HCL 0.4 MG CAP PO SCH (09:40)
[2018-10-14] MEDS ORDERED: METHADONE HCL 5 MG TABLET PO ONE (09:45)
--- NOTE | 2018-10-14 18:12 | DS ---
[facility] Detox Discharge Summary Admission Date: 10/10/18 Discharge Date: 10/14/18 - History Present History: Opioid Dependence Additional Comments: Patient requested to be discharged today stating that he is fine and doesn't need to stay here any longer. Patient agreed to adjust his methadone dose from 10mg to 5mg so that he can be discharged. Patient later refused to wait for the methadone 5mg stating he cannot wait any longer and that he doesn't need it. Patient left the floor in stable condition. Instructed to follow up with his PCP within 1 week and to call 911 [facility] if feeling sick or withdrawal symptoms. Pertinent Past History: Opioid dependence Asthma BPH HLD CVA Hepatitis C Nicotine dependence - Physical Exam Results Vital Signs: Vital Signs Temperature 97.9 F 10/14/18 06:00 Pulse Rate 80 10/14/18 06:00 Respiratory Rate 18 10/14/18 06:00 Blood Pressure 122/75 10/14/18 06:00 O2 Sat by Pulse Oximetry (%) Pertinent Admission Physical Exam Findings: Withdrawal symptoms Laboratory Tests 10/10/18 10/11/18 10/11/18 22:37 07:00 07:00 WBC 4.6 RBC 5.12 Hgb 15.4 Hct 46.0 MCV 89.8 MCH 30.0 MCHC 33.4 RDW 14.2 Plt Count 104 L MPV 10.8 Sodium 144 Potassium 4.1 Chloride 112 H Carbon Dioxide 29 Anion Gap 4 L BUN 19.8 H Creatinine 1.2 Est GFR (CKD-EPI)AfAm 75.72 Est GFR (CKD-EPI)NonAf 65.33 Random Glucose 104 Calcium 8.5 Total Bilirubin 0.5 AST 35 ALT 46 Alkaline Phosphatase 113 Total Protein 6.2 L Albumin 3.2 L Urine Color Yellow Urine Appearance Clear Urine pH 6.0 Ur Specific [place] 1.022 Urine Protein Trace Urine Glucose (UA) Negative Urine Ketones Negative Urine Blood Trace Urine Nitrite Negative Urine Bilirubin Negative Urine Urobilinogen 1.0 Ur Leukocyte Esterase Negative Urine WBC (Auto) 3 Urine RBC (Auto) 4 Urine Casts (Auto) 2 U Epithel Cells (Auto) 0.7 Urine Bacteria (Auto) 2.0 RPR Titer 10/11/18 07:00 WBC RBC Hgb Hct MCV MCH MCHC RDW Plt Count MPV Sodium Potassium Chloride Carbon Dioxide Anion Gap BUN Creatinine Est GFR (CKD-EPI)AfAm Est GFR (CKD-EPI)NonAf Random Glucose Calcium Total Bilirubin AST ALT Alkaline Phosphatase Total Protein Albumin Urine Color Urine Appearance Urine pH Ur Specific [place] Urine Protein Urine Glucose (UA) Urine Ketones Urine Blood Urine Nitrite Urine Bilirubin Urine Urobilinogen Ur Leukocyte Esterase Urine WBC (Auto) Urine RBC (Auto) Urine Casts (Auto) U Epithel Cells (Auto) Urine Bacteria (Auto) RPR Titer Nonreactive Labs reviewed - Treatment Hospital Course: Detox Protocol Followed, Detoxed Safely, Responded well, Discharged Condition Good - Medication Discharge Medications: Ambulatory Orders Tamsulosin HCl [Flomax] 0.4 mg PO BID 12/06/16 Albuterol Sulfate Inhaler - [Ventolin HFA Inhaler -] 2 inh PO Q4H PRN #1 inhaler 01/09/18 Alprazolam [Xanax] 2 mg PO BID 10/10/18 - Diagnosis (1) HLD (hyperlipidemia) Status: Chronic (2) CVA (cerebral vascular accident) Status: Chronic (3) Hepatitis C carrier Status: Chronic (4) Opioid dependence with withdrawal Status: Acute (5) Asthma Status: Chronic Qualifiers: Asthma severity: mild intermittent (6) BPH (benign prostatic hyperplasia) Status: Chronic Qualifiers: Lower urinary tract symptom presence: unspecified whether lower urinary tract symptoms present Qualified Code(s): N40.0 - Benign prostatic hyperplasia without lower urinary tract symptoms (7) Nicotine dependence Status: Chronic Qualifiers: Nicotine product type: cigarettes Substance use status: uncomplicated Qualified Code(s): F17.210 - Nicotine dependence, cigarettes, uncomplicated - AMA Did Patient Leave Against Medical Advice: No (Call 911 [facility] if withdrawal symptoms/feeling sick, F/U with PCP in 1 week)
[2018-10-15] MEDS ORDERED: METHADONE HCL 5 MG TABLET (FOR DETOX USE ONLY) PO ONE (06:00)
== END 2018-10-14 09:42 | disposition home or self-care (01) | DRG 773 ==
LOC: YASAS 10:34 → Y6N 16:38
PROVIDERS: ADMIT Surgery; ATTEND Surgery
PROC: HZ2ZZZZ Detoxification Services for Substance Abuse Treatment (ICD-10-PCS; principal; 2018-10-10)
DX: F11.23 Opioid dependence with withdrawal (principal); F17.210 Nicotine dependence, cigarettes, uncomplicated; F31.9 Bipolar disorder, unspecified; F20.9 Schizophrenia, unspecified; E78.5 Hyperlipidemia, unspecified; B18.2 Chronic viral hepatitis C; J45.20 Mild intermittent asthma, uncomplicated; N40.0 Benign prostatic hyperplasia without lower urinary tract symptoms; Z87.438 Personal history of other diseases of male genital organs; Z86.73 Personal history of transient ischemic attack (TIA), and cerebral infarction without residual deficits; Z91.5 Personal history of self-harm
CPT/HCPCS: 36415; 80053; 81003; 85027; 86593

== ENCOUNTER 2019-11-15 05:04 | Day surgery (SDC) | payer OTHER ==
[2019-11-14 13:58] VITALS: BMI 30.5
[2019-11-15] MEDS ORDERED: PROMETHAZINE HCL 25 MG/1 ML VIAL IVPUSH PRN (10:33)
[2019-11-15] MEDS ORDERED: ONDANSETRON 4 MG/2 ML VIAL IVPUSH PRN (10:33)
[2019-11-15] MEDS ORDERED: LACTATED RINGERS SOLUTION 1,000 ML IV SCH (10:45)
[2019-11-15] MEDS ORDERED: PROPOFOL 20 ML ONE (10:48)
[2019-11-15] MEDS ORDERED: MIDAZOLAM HCL 2 MG/2 ML SINGLE DOSE VIAL ONE (10:48)
[2019-11-15] MEDS ORDERED: LIDOCAINE HCL/PF 2% SDV 5ML VIAL ONE (10:49)
[2019-11-15] MEDS ORDERED: ceFAZolin SODIUM 1 GM VIAL ONE (11:10)
[2019-11-15] MEDS ORDERED: ceFAZolin SODIUM 1 GM VIAL IVPB ONE (11:19)
[2019-11-15] MEDS ORDERED: IOHEXOL 300 MG/ML INFUS..BTL IV ONE (11:26)
[2019-11-15] MEDS ORDERED: DEXAMETHASONE SOD PHOSPHATE 4 MG/1 ML VIAL ONE (11:33)
[2019-11-15] MEDS ORDERED: KETOROLAC TROMETHAMINE 30 MG/1 ML VIAL ONE (11:33)
--- NOTE | 2019-11-15 11:57 | PREOP ---
DATE OF ADMISSION: 11/15/2019 DATE OF DICTATION: 11/15/2019 PREOPERATIVE NOTE: Patient is a 60-year-old male with left flank pain. He has left CVA tenderness. Does have history of liver cancer as well as hepatitis C. He is status post radiotherapy to the liver. His liver doctor is at [facility]. He continues to complain of left flank pain. He has had several episodes of intermittent growth hematuria. An ultrasound of the kidneys revealed a left hydronephrosis. A CAT scan of the abdomen and pelvis at [facility] also revealed multiple lesions in the liver. The kidneys revealed a 2-cm left renal stone, which migrated to the ureteropelvic junction resulting in increased left hydronephrosis. There are no obstructing renal calculi. IMPRESSION: At the present is left hydronephrosis secondary to a left ureteropelvic stone. PLAN: Cystoscopy, left retrograde pyelogram, left ureteroscopic laser lithotripsy, and placement of stent. Miky [id number]
--- NOTE | 2019-11-15 12:18 | OP ---
Operative Note - Note: Operative Date: 11/15/19 Pre-Operative Diagnosis: left hydro, lt. renal stone Operation: lull with jj stent Findings: 2cm lt. renal pelvic stone Post-Operative Diagnosis: Same as Pre-op Surgeon: Rosa Jenkins Anesthesia: General Specimens Removed: stone, urine Estimated Blood Loss (mls): 0 Drains & Tubes with Location: 24cm-6f lt. jj stent and 16f-10cc lo[place]on Drains, Volume Out (mls): 0 Blood Volume Replaced (mls): 0 Fluid Volume Replaced (mls): 0 Operative Report Dictated: Yes
[2019-11-15] MEDS ORDERED: ALBUTEROL SO4 HFA INHALER IH PRN (12:20)
[2019-11-15] MEDS ORDERED: TAMSULOSIN HCL 0.4 MG CAP PO ONE (13:45)
[2019-11-15] MEDS: HYDROmorphone HCl 2 MG/ML VIAL IVPB SCH ×3 (14:03→21:06)
--- NOTE | 2019-11-15 15:40 | OP ---
DATE OF OPERATION: 11/15/2019 PREOPERATIVE DIAGNOSIS: Left hydronephrosis, left renal pelvic stone. POSTOPERATIVE DIAGNOSIS: Left hydronephrosis, left renal pelvic stone. OPERATIVE PROCEDURE: Cystoscopy, left retrograde pyelogram, left ureteroscopy, left laser lithotripsy, and placement of a left JJ stent. ANESTHESIA: General. DESCRIPTION OF PROCEDURE: Under above stated anesthesia, patient is prepped and draped in the usual sterile manner. He is placed in the dorsal lithotomy position. Cystoscopy revealed trilobar hypertrophy of the prostate. There was lateral lobe kissing. The prostatic urethra measured 6 cm in length. The bladder was entered. Urine was collected for C&S. Inspection of the bladder revealed a grade 2-3 trabeculation throughout. There was squamous metaplasia of the trigone. No overt lesions or calculi were seen. A Flexi-Tip catheter was placed in the lumen of the left ureteral orifice, and 5 mL of contrast was injected. This revealed a normal lower and midureter. A 2- to 3-cm stone was seen at the ureteropelvic junction on the left side, therefore a Glidewire was passed up the left renal unit. The cystoscope was removed. A ureteroscope was inserted. Ureteroscopy was then performed in standard fashion. Lower ureter was within normal limits. At the level of the ureteropelvic junction a stone was seen. Using a 350 holmium fiber, the stone was lased unto multiple fragments. Several fragments were retrieved and sent to pathology. No active bleeding was noted. The ureteroscope was removed. A 24-cm 6-Gabones[place] JJ stent was left in place. X-rays confirmed good position of the stent. The bladder was emptied. An 18-Gabonese Marshall was left in place. The patient tolerated the procedure well. He returned to the recovery room in good condition. Miky [id number]
[2019-11-15] MEDS: CEPHALEXIN MONOHYDRATE 500 MG CAPSULE (UD) PO SCH (21:06)
[2019-11-16] MEDS: HYDROmorphone HCl 2 MG/ML VIAL IVPB SCH ×2 (00:30→06:17)
[2019-11-16] MEDS: CEPHALEXIN MONOHYDRATE 500 MG CAPSULE (UD) PO SCH (06:18)
[2019-11-16 11:06] VITALS: BP 139/66; PULSE 65; TEMP 98.2
--- NOTE | 2019-11-19 16:02 | PATH ---
Surgical Pathology Report Patient Name: VIKKI SAMAYOA Med. Rec. #: [id number] /Age/Gender: 1960 (Age: 59) / M Account: [id number] Location: AMBULATORY SURG Taken: 11/15/2019 Received: 11/15/2019 Reported: 11/18/2019 Physicians: Rosa Jenkins M.D. Specimen(s) Received KIDNEY STONES Clinical History TiterHydro with renal and ureteral stone Final Diagnosis KIDNEY STONES, LEFT, LASER LITHOTRIPSY: RENAL CALCULI. MACROSCOPIC DIAGNOSIS. Electronically Signed Mana Crane M.D. Gross Description Received in formalin labeled "kidney stones," are 3 krishnan, irregular and fragmented calculi ranging from 0.2-0.5 cm in greatest dimension. The formalin is drained and the specimen is dried and sent for chemical analysis. /11/15/2019 saudi/11/15/2019
[2019-12-02 14:27] LABS: CALCIUM CARBONATE 60; CALCIUM PHOSPHATE 40; SIZE 5X6 mm; WEIGHT 57 mg
== END 2019-11-16 11:18 | disposition home or self-care (01) ==
LOC: JASU-SURG 05:04 → JASUSAT 05:04 → J6S 13:41 → JASUSAT 11-16 11:18
PROVIDERS: ATTEND Urology
PROC: 0TC48ZZ Extirpation of Matter from Left Kidney Pelvis, Via Natural or Artificial Opening Endoscopic (ICD-10-PCS; principal; 2019-11-15 10:30)
PROC: 0T778DZ Dilation of Left Ureter with Intraluminal Device, Via Natural or Artificial Opening Endoscopic (ICD-10-PCS; 2019-11-15 10:30)
DX: N13.2 Hydronephrosis with renal and ureteral calculous obstruction (principal)
CPT/HCPCS: 36415; 76000-TC-FY; 82360; 82962; 88300-TC; 94760

== ENCOUNTER 2020-01-01 14:47 | Emergency (ER) | payer OTHER ==
[2020-01-01 15:18] VITALS: BP 111/72; PULSE 89; TEMP 98.9; BMI 29.0
--- NOTE | 2020-01-01 15:19 | PDOC ---
Rapid Medical Evaluation Time Seen by Provider: 01/01/20 15:00 Medical Evaluation: Allergies Allergy/AdvReac Type Severity Reaction Status Date / Time No Known Allergies Allergy Verified 11/15/19 09:28 01/01/20 15:17 CC: left kidney pain, mild dysuria, hx kidney stone Exam: Left cva tenderness, vss, no suprapubic tenderness Plan: urine, labs, spiral ct Discharge Disposition - Diagnosis Left flank pain - Discharge Dispostion Last Admission D/C Date: 10/14/18 - Referrals Referrals: Elmer Jeronimo [Primary Care Provider] - - Patient Instructions - Post Discharge Activity
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
[2020-01-01 17:06] LABS: BASO % 0.7 % (0-2.0); EOS % 6.6 % (0-4.5); HEMATOCRIT 42.2 % (35.4-49); HEMOGLOBIN 14.4 GM/dL (11.7-16.9); LYMPH % 10.5 % (8-40); MCH 30.4 pg (25.7-33.7); MCHC 34.1 g/dl (32.0-35.9); MEAN CELL VOLUME 89.3 fl (80-96); MEAN PLT VOLUME 9.1 fl (7.5-11.1); MONO % 12.9 % (3.8-10.2); NEUT % 69.3 % (42.8-82.8); PLATELET COUNT 137 K/MM3 (134-434); RBC 4.72 M/mm3 (4.00-5.60); RDW 14.6 % (11.9-15.9)
[2020-01-01 17:11] LABS: EPI CELLS 20 /uL (0-25.1); HYALINE CASTS 2 /uL (0-3.1); PH,URINE 6.5 (5.0-8.0); URINE APPEARANCE CLEAR; URINE BILIRUBIN NEGATIVE (NEGATIVE); URINE COLOR DK YELLOW; URINE GLUCOSE (UA) NEGATIVE (NEGATIVE); URINE KETONE NEGATIVE (NEGATIVE); URINE LEUK ESTERASE 1+ (NEGATIVE); URINE NITRITE POSITIVE (NEGATIVE); URINE PROTEIN 1+ (NEGATIVE); URINE RBC 1088 /uL (0-23.9); URINE WBC 38 /uL (0-25.8)
[2020-01-01 17:13] LABS: URINE BACTERIA 54.4 /uL (0-1359)
[2020-01-01] MEDS ORDERED: CEFTRIAXONE 1 GM in DEXTROSE 5%-WATER - 50 ML IVPB ONE (17:23)
[2020-01-01 17:40] LABS: ALBUMIN 3.5 g/dl (3.4-5.0); BILIRUBIN,TOTAL 0.4 mg/dL (0.2-1); BLOOD UREA NITROGEN 16.6 mg/dL (7-18); CALCIUM 8.4 mg/dL (8.5-10.1); CREATININE 1.2 mg/dL (0.55-1.3); POTASSIUM 4.5 mmol/L (3.5-5.1); TOT PROT 7.5 g/dl (6.4-8.2)
[2020-01-01] MEDS ORDERED: CEFTRIAXONE 1 GM/50 ML BAG ONE (17:44)
[2020-01-01] MEDS ORDERED: KETOROLAC TROMETHAMINE 30 MG/1 ML VIAL IVPUSH ONE (17:45)
[2020-01-01] MEDS ORDERED: PHENAZOPYRIDINE HCL 100 MG TABLET (FP) PO ONE (17:51)
[2020-01-01] MEDS ORDERED: PHENAZOPYRIDINE HCL 100 MG TABLET (FP) ONE (17:52)
[2020-01-01] MEDS ORDERED: KETOROLAC TROMETHAMINE 30 MG/1 ML VIAL ONE (17:53)
--- OUTSIDE RECORDS SUMMARY | 2020-01-02 07:11 | XMS ---
:1960 [facility] Providers Name Role Phone Ben Nelson Unavailable [phone] JEAN BAKER Unavailable Unavailable FRANCISCO GERI SARGINE Unavailable Unavailable ED STAFF PHYSICIAN, STAFF Unavailable Unavailable Lalo, Camille HVAC SHEET METAL INSTALLER Unavailable Unavailable Lalo, Camille HVAC SHEET METAL INSTALLER Unavailable Unavailable Lalo, Camille HVAC SHEET METAL INSTALLER Unavailable Unavailable Lalo, Camille HVAC SHEET METAL INSTALLER Unavailable Unavailable H[facility]VCC, WCAP9 Unavailable Unavailable Jeronimo, Jr Unavailable Unavailable Jeronimo, Jr Unavailable Unavailable Jeronimo, Jr Unavailable Unavailable Jeronimo, Jr Unavailable Unavailable Jeronimo, Jr Unavailable Unavailable Jeronimo, Jr Unavailable Unavailable Jeronimo, Jr Unavailable Unavailable Jeronimo, Jr Unavailable Unavailable Jeronimo, Jr Unavailable Unavailable Jeronimo, Jr Unavailable Unavailable Jeronimo, Jr Unavailable Unavailable JEANE WALTER Unavailable Unavailable ED STAFF PHYSICIAN Unavailable Unavailable Leeanna, Nayel Unavailable [phone] Leeanna, Nayel Unavailable [phone] Leeanna, Nayel Unavailable [phone] Leeanna, Nayel Unavailable [phone] Leeanna, Nayel Unavailable [phone] SERENE WILL Unavailable Unavailable Tacho Jiménez Unavailable [phone] JERONIMO, JR Unavailable Unavailable HHHVCC, SVH9 Unavailable Unavailable Leeanna, Osama Unavailable Unavailable Leeanna, Osama Unavailable Unavailable Leeanna, Osama Unavailable Unavailable Leeanna, Osama Unavailable Unavailable Leeanna, Osama Unavailable Unavailable Leeanna, Osama Unavailable Unavailable Leeanna, Osama Unavailable Unavailable Leeanna, Osama Unavailable Unavailable Leeanna, Osama Unavailable Unavailable Leeanna, Osama Unavailable Unavailable Leeanna, Osama Unavailable Unavailable Leeanna, Osama Unavailable Unavailable Leeanna, Osama Unavailable Unavailable Leeanna, Osama Unavailable Unavailable Leeanna, Osama Unavailable Unavailable ZUNASSIGNED Unavailable Unavailable LEEANNA NAYEL, NAYEL Unavailable Unavailable MARCUS CARTER Unavailable Unavailable Re-disclosure Warning The records that you are about to access may contain information from federally- assisted alcohol or drug abuse programs. If such information is present, then the following federally mandated warning applies: This information has been disclosed to you from records protected by federal confidentiality rules (42 CFR part 2). The federal rules prohibit you from making any further disclosure of this information unless further disclosure is expressly permitted by the written consent of the person to whom it pertains or as otherwise permitted by 42 CFR part 2. A general authorization for the release of medical or other information is NOT sufficient for this purpose. The Federal rules restrict any use of the information to criminally investigate or prosecute any alcohol or drug abuse patient.The records that you are about to access may contain highly sensitive health information, the redisclosure of which is protected by Article 27-F of the [facility] Public Health law. If you continue you may haveaccess to information: Regarding HIV / AIDS; Provided by facilities licensed or operated by the [facility] Office of Mental Health; or Provided by the [facility] Office for People With Developmental Disabilities. If such information is present, then the following [facility] mandated warning applies: This information has been disclosed to you from confidential records which are protected by state law. State law prohibits you from making any further disclosure of this information without the specific written consent of the person to whom it pertains, or as otherwise permitted by law. Any unauthorized further disclosure in violation of state law may result in a fine or [place] health [place] facility sentence or both. A general authorization for the release of medical or other information is NOT sufficient authorization for further disclosure. Allergies and Adverse Reactions Type Description Substance Reaction Status Data Source(s ) Drug allergy No Known Drug No Known Drug [facility] Propensity to Propensity to Propensity to NEXTG EN ([facility] adverse reactions adverse reactions adverse reactions [facility] (disorder) (disorder) (disorder) [place]) Encounters Encounter Providers Location Date Indications Data Source(s ) Inpatient Attender: David H-HAL5 12/18/2019 [facility]uffin SayeghAttender: 11:25:00 AM EDT [facility] STAFF ED STAFF - 12/22/2019 PHYSICIANAdmitter: 06:36:00 PM EDT David Meleferrer: David Jenkins Patient discharged. Emergency Attender: ED STAFF H 12/18/2019 06:46:00 AM [facility] PHYSICIANAttender: STAFF ED EDT - 12/18/2019 [facility] STAFF PHYSICIANAdmitter: ED 11:33:00 AM EDT STAFF PHYSICIANReferrer: ZUNASSIGNED Patient discharged. Emergency Attender: ED STAFF H 12/18/2019 03:47:00 AM [facility] PHYSICIANAttender: STAFF ED EDT - 12/18/2019 [facility] STAFF PHYSICIANAdmitter: ED 05:25:00 AM EDT STAFF PHYSICIANReferrer: ZUNASSIGNED Patient discharged. Attender: Jr Jeronimo 12/18/2019 12:00:00 AM EDT [facility]) Office Attender: Jr Jeronimo 12/18/2019 12:00:00 AM EDT [facility] ([facility]) Office Attender: Jr Jeronimo 12/18/2019 12:00:00 AM EDT [facility] ([facility]) Office Attender: Jr Jeronimo 12/18/2019 12:00:00 AM EDT [facility] ([facility]) Office Attender: Jr Jeronimo 12/18/2019 12:00:00 AM EDT [facility] ([facility]) Office Attender: Jr Jeronimo 12/18/2019 12:00:00 AM EDT [facility] ([facility]) Office Attender: Jr Jeronimo 12/18/2019 12:00:00 AM EDT [facility] ([facility]) Office Attender: Jr Jeronimo 12/18/2019 12:00:00 AM EDT [facility] ([facility]) Office Attender: Jr Jeronimo 12/18/2019 12:00:00 AM EDT [facility] ([facility]) Office Emergency Attender: ED STAFF H 12/14/2019 01:41:00 PM [facility] PHYSICIANAttender: STAFF ED EDT - 12/14/2019 [facility] STAFF PHYSICIANAdmitter: ED 06:01:00 PM EDT STAFF PHYSICIANReferrer: ZUNASSIGNED Patient discharged. Attender: Jr Jeronimo 12/12/2019 12:00:00 AM EDT [facility] ([facility]) Office Attender: Jr Jeronimo 12/12/2019 12:00:00 AM EDT [facility] ([facility]) Office Attender: Jr Jeronimo 12/12/2019 12:00:00 AM EDT [facility] ([facility]) Office Attender: Jr Jeronimo 12/12/2019 12:00:00 AM EDT [facility] ([facility]) Office Attender: Jr Jeronimo 12/12/2019 12:00:00 AM EDT [facility] ([facility]) Office Attender: Jr Jeronimo 12/12/2019 12:00:00 AM EDT [facility] ([facility]) Office Attender: Jr Jeronimo 12/12/2019 12:00:00 AM EDT [facility] ([facility]) Office Attender: Jr Jeronimo 12/12/2019 12:00:00 AM EDT [facility] ([facility]) Office Outpatient Attender: ROSA Martino 11/27/2019 08:31:00 [facility] ROSAAdmitter: [facility] EDT - 11/27/2019 [facility] LEEANNA VÁZQUEZReferrer: 11:15:00 AM EDT ROSA VÁZQUEZ Attender: Rosa Jenkins 11/27/2019 08:31:00 [facility] EDT - 11/27/2019 [facility] 08:31:00 AM EDT Center) Outpatient Admitter: ROSA Martino 11/27/2019 [facility]patient Admitter: ROSA Martino 11/27/2019 12:00:00 [facility] [place] Unlisted evaluation 11/25/2019 02:00:00 MANDI (The and management PM EDT Guidance C enter [facility] ) Outpatient Attender: JEAN Martino 11/22/2019 12:02:00 [facility] PENA PM EDT Medical C enter LAdmitter: JEAN PENA LReferrer: JEAN Fuller Emergency Attender: GERI SINGH Sal[place] 11/20/2019 04:34:00 [facility] MERIDANAFISAEAttender: STAFF PM EDT - 11/20/2019 [facility] ED STAFF 11:28:00 PM EDT PHYSICIANAdmitter: GERI NEVAREZ Patient discharged. Attender: Camille May NP 11/20/2019 12:00:00 AM EDT [facility] ([facility]) Office Attender: Camille May NP 11/20/2019 12:00:00 AM EDT [facility] ([facility]) Office Attender: Camille May NP 11/20/2019 12:00:00 AM EDT [facility] ([facility]) Office Attender: Camille May NP 11/20/2019 12:00:00 AM EDT [facility] ([facility]) Office Attender: Camille May NP 11/20/2019 12:00:00 AM EDT [facility] ([facility]) Office Attender: Camille May NP 11/20/2019 12:00:00 AM EDT [facility] ([facility]) Office Attender: Camille May NP 11/20/2019 12:00:00 AM EDT [facility] ([facility]) Office Attender: Camille May NP 11/20/2019 12:00:00 AM EDT [facility] ([facility]) Office Attender: Jr Jeronimo 11/18/2019 12:00:00 AM EDT [facility] ([facility]) Office Attender: Jr Jeronimo 11/18/2019 12:00:00 AM EDT [facility] ([facility]) Office Attender: Jr Jeronimo 11/18/2019 12:00:00 AM EDT [facility] ([facility]) Office Attender: Jr Jeronimo 11/18/2019 12:00:00 AM EDT [facility] ([facility]) Office Attender: Jr Jeronimo 11/18/2019 12:00:00 AM EDT [facility] ([facility]) Office Attender: Jr Jeronimo 11/18/2019 12:00:00 AM EDT [facility] ([facility]) Office Attender: Jr Jeronimo 11/18/2019 12:00:00 AM EDT [facility] ([facility]) Office Attender: Jr Jeronimo 11/18/2019 12:00:00 AM EDT [facility] ([facility]) Office Outpatient Attender: WCAP9 [facility]CC 11/02/2019 11:33:01 AM I ([facility] EDT [facility]) Patient admitted. Outpatient Attender: JR Martino 10/30/2019 10:26:00 AM [facility] WAGONERdmitter: JR Squires [facility] Alvinaerrer: JR JERONIMO Attender: Jr Jeronimo 10/30/2019 12:00:00 AM [facility] Office Attender: Jr Jeronimo 10/30/2019 12:00:00 AM EDT [facility] ([facility]) Office Attender: Jr Jeronimo 10/30/2019 12:00:00 AM EDT [facility] ([facility]) Office Attender: Jr Jeronimo 10/30/2019 12:00:00 AM EDT [facility] ([facility]) Office Attender: Jr Jeronimo 10/30/2019 12:00:00 AM EDT [facility] ([facility]) Office Attender: Jr Jeronimo 10/30/2019 12:00:00 AM EDT [facility] ([facility]) Office Attender: Jr Jeronimo 10/30/2019 12:00:00 AM EDT [facility] ([facility]) Office Attender: Jr Jeronimo 10/30/2019 12:00:00 AM EDT [facility] ([facility]) Office Emergency Attender: MARCUS Martino 09/19/2019 02:09 :00 PM Trueirina Santo: STAFF ED STAFF EDT - 09/19/2019 [facility] PHYSICIANAdmitter: MARCUS 08:29:00 PM EDT RAJ Mclaughlin Patient discharged. Inpatient Attender: SERENE COOPER H-HAL5 08/12/2019 02:05:00 [facility] True CASTAttpretty: STAFF ED PM EDT - 08/13/2019 [facility] STAFF PHYSICIANAdmitter: 01:05:00 PM EDT SERENE COOPER ROBERTReferrer: SERENE CAST Patient discharged. Outpatient Attender: [address] 07/02/2019 10:19:49 AM [facility] ([facility]) Patient admitted. Outpatient Attender: [address] 07/02/2019 10:19:46 AM [facility] ([facility]) Patient admitted. Outpatient Attender: [address] 07/02/2019 10:18:26 AM [facility] ([facility]) Patient admitted. Outpatient Attender: [address] 07/02/2019 10:18:25 AM [facility] ([facility]) Patient admitted. Outpatient Attender: [address] 07/02/2019 10:18:23 AM [facility] ([facility]) Patient admitted. Outpatient Attender: [address] 07/02/2019 10:16:13 AM [facility] ([facility]) Patient admitted. Outpatient Attender: [address] 07/02/2019 10:16:12 AM [facility] ([facility]) Patient admitted. Outpatient Attender: [address] 07/02/2019 10:16:10 AM [facility] ([facility]) Patient admitted. Outpatient Attender: [address] 07/02/2019 10:11:34 AM [facility] ([facility]) Patient admitted. Outpatient Attender: [address] 07/02/2019 10:11:31 AM [facility] ([facility]) Patient admitted. Outpatient Attender: JR Martino 06/05/2019 11:43:00 AM [facility] WAGONERdmitter: JR Squires [facility] IVETHeferrer: JR JERONIMO Outpatient Attender: [address] 05/21/2019 11:57:52 AM [facility] ([facility] ) Patient admitted. Emergency Attender: MARCUS Martino 04/14/2019 10:38 :00 AM [facility] CAttender: STAFF ED STAFF EST - 04/14/2019 [facility] PHYSICIANAdmitter: MARCUS 03:56:00 PM EST RAJ Mclaughlin Patient discharged. Unlisted evaluation 03/04/2019 NETS ART (The and management 02:00:00 PM [facility] Zia [facility] service 10/21/2019 [place]) 10:00:00 PM EDT Attender: Mental Health 03/04/2019 [facility] ([facility] 10:46:00 AM [facility] 03/04/2019 [place]) 10:46:00 AM EST OutpatientOFFICE/OUTP Attender: Mental Health 01/16/2019 [facility] 02:26:00 PM T [facility] 01/16/2019 [place]) 02:26:00 PM EDT Attender: Mental Health 01/16/2019 [facility] ([facility] 01:37:00 PM [facility] 01/16/2019 [place]) 01:37:00 PM EDT Attender: Mental Health 01/09/2019 [facility] 01:41:00 PM EDT [facility] 01/09/2019 [place]) 01:41:00 PM EDT Individual Attender: Mental Health 12/19/2018 [facility] ([facility] int Psych[facility] ([facility] 04:00:00 PM [facility] 12/19/2018 [place]) 04:00:00 PM EDT OutpatientOFFICE/OUTP Attender: Mental Health 12/19/2018 [facility] ([facility] 03:12:00 PM EDT [facility] 12/19/2018 [place]) 03:12:00 PM EDT Attender: Mental Health 12/10/2018 [facility] ([facility] 10:35:00 AM EDT [facility] 12/10/2018 [place]) 10:35:00 AM EDT Outpatient 11/28/2018 [facility] ([facility] 09:21:43 AM EDT [facility]) Patient admitted. Outpatient 11/28/2018 09:21:40 AM EDT [facility] ([facility]) Patient admitted. Individual Attender: [facility] 11/16/2018 [facility] N ([facility] ([facility] 04:59:00 PM EDT - True Min) 11/16/2018 Medical 04:59:00 PM EDT Center) OutpatientOFFICE/OUTP Attender: [facility] 11/16/2018 [facility] (Saint ATIENT VISIT, EST [facility] 11:14:00 AM EDT - True 11/16/2018 Medical 11:14:00 AM EDT Center) Outpatient 11/02/2018 [facility] ([place] 11:52:44 AM EDT [facility]) Patient admitted. Outpatient 11/02/2018 11:52:40 AM EDT [facility] ([facility]) Patient admitted. Individual Attender: [facility] 10/19/2018 NEXTGE N ([facility] ([facility] 12:14:00 PM EDT - True Min) 10/19/2018 Medical 12:14:00 PM EDT Center) OutpatientOFFICE/OUTP Attender: [facility] 10/19/2018 [facility] AT[facility]IS[facility], EST [facility] 11:10:00 AM EDT - True 10/19/2018 Medical 11:10:00 AM EDT Center) OutpatientOFFICE/OUTP Attender: [facility] 09/21/2018 NEXT (Saint ATIENT VISIT, EST [facility] 10:41:00 AM EDT - True 09/21/2018 Medical 10:41:00 AM EDT Center) Individual Attender: [facility] 09/20/2018 NEXTGE N ([facility] ([facility] 02:16:00 PM EDT - True Min) 09/20/2018 Medical 02:16:00 PM EDT Center) OutpatientOFFICE/OUTP Attender: [facility] 08/24/2018 NEXTGEN (Saint ATIENT VISIT, EST [facility] 02:17:00 PM EDT - True 08/24/2018 Medical 02:17:00 PM EDT Center) Individual Attender: [facility] 08/23/2018 NEXTGE N ([facility] ([facility] 02:01:00 PM EDT - True Min) 08/23/2018 Medical 02:01:00 PM EDT Center) OutpatientOFFICE/OUTP Attender: [facility] 07/27/2018 [facility]EXT[facility] (Saint ATIENT VISIT, EST [facility] 02:14:00 PM EDT - True 07/27/2018 Medical 02:14:00 PM EDT Center) Individual Attender: [facility] 07/26/2018 NEXTGE N ([facility] ([facility] 05:20:00 PM EDT - True Min) 07/26/2018 Medical 05:20:00 PM EDT Center) OutpatientOFFICE/OUTP Attender: [facility] 06/22/2018 JOAQUIMGEN (Saint ATIENT VISIT, EST [facility] 11:21:00 AM EDT - True 06/22/2018 Medical 11:21:00 AM EDT Center) Individual Attender: [facility] 06/18/2018 NEXTGE N ([facility] ([facility] 02:17:00 PM EDT - True Min) 06/18/2018 Medical 02:17:00 PM EDT Center) Individual Attender: [facility] 05/07/2018 NEXTGE N ([facility] ([facility] 12:32:00 PM EST - True Min) 05/07/2018 Medical 12:32:00 PM EST Center) Attender: [facility] 04/05/2018 NEXTGE N ([facility] 04:28:00 PM EST - Jacob s 04/05/2018 Medical 04:28:00 PM EST Center) Outpatient Attender: JEANE Martino 04/05/2018 [facility] WALTERAdmitter: 10:05:00 AM EST Medic al Center JEANE WALTER Attender: Tacho 04/05/2018 [facility]EXT[facility] ( [facility] 10:05:00 AM EST - True 04/05/2018 Medical 10:05:00 AM EST Center) 04/05/2018 [facility] 12:00:00 AM EST Medical C enter Attender: Tacho 04/12/2017 [facility]EXT[facility] ( [facility] 08:05:00 AM EST - True 04/12/2017 Medical 08:05:00 AM EST Center) Immunizations Vaccine Date Status Description Data Source(s) New in 2011. IIV4 12/19/2019 completed [facility] 03:34:00 PM EDT Center pneumococcal 12/19/2019 completed [facility] M edical polysaccharide PPV23 10:30:00 AM EDT Cent er pneumococcal 12/19/2019 completed [facility] Squires edical polysaccharide PPV23 10:30:00 AM EDT Cent er Medications Medication Brand Start Product Dose Route Administrative Pharmacy [facility] Indications Reaction Description Data Name Date Form Instructions Instructions Source(s) Ciprofloxac CIPRO: 12/17/ TABLET 14 complet CIPR O MEDGEN in 500 MG [id number] ed ([facility] Oral Tablet 12:00: Medica l CIPRO:92927 00 AM Service ) 9 EDT TRELEGY 12/11/ POWDER 1 complet TRELEGY ME DGEN ELLIPTA:194 2019 ed ELLIPTA ([place] 5044 12:00: Medical 00 AM Service) EDT PYRIDIUM:19 12/11/ TABLET 9 complet PYRIDI UM MEDGEN 8079 2019 ed ([facility] 12:00: Medical 00 AM Service) EDT Albuterol ALBUTE 12/11/ SOLUTION 1 complet ALBU TEROL MEDGEN 0.83 MG/ML ROL:63 2019 ed ([facility] Inhalant 0208 12:00: Medical Solution 00 AM Service) ALBUTEROL:6 EDT 86804 Tamsulosin FLOMAX 12/11/ CAPSULE 30 complet FLOM AX MEDGEN hydrochlori :85116 2019 ed ([address] de 0.4 MG 9 12:00: Medical Oral 00 AM Service) Capsule EDT FLOMAX:8636 69 Sulfamethox BACTRI 12/11/ TABLET 10 complet BACT RIM DS MEDGEN azole 800 M 2019 ed ([facility] MG / DS:849 12:00: Medical Trimethopri 580 00 AM Service ) m 160 MG EDT Oral Tablet [Bactrim] BACTRIM DS:087345 Pravastatin PRAVAC 12/11/ TABLET 30 complet PRAV ACHOL MEDGEN Sodium 40 HOL:90 2019 ed ([facility] MG Oral 4475 12:00: Medical Tablet 00 AM Service) PRAVACHOL:9 EDT 01930 200 ACTUAT PROAIR 12/11/ POWDER 1 complet PROAI R MEDGEN Albuterol RESPIC 2020 ed RESPICLICK ([address] 0.09 LICK:1 12:00: Medical MG/ACTUAT 913359 00 AM Service ) Dry Powder EDT Inhaler PROAIR RESPICLICK: [id number] PYRIDIUM:19 12/11/ TABLET 9 complet PYRIDI UM MEDGEN 8079 2020 ed ([facility] 12:00: Medical 00 AM Service) EDT TRELEGY 12/11/ POWDER 1 complet TRELEGY ME DGEN ELLIPTA:194 2019 ed ELLIPTA ([place] 5044 12:00: Medical 00 AM Service) EDT Pravastatin PRAVAC 12/11/ TABLET 30 complet PRAV ACHOL MEDGEN Sodium 40 HOL:90 2019 ed ([facility] MG Oral 4475 12:00: Medical Tablet 00 AM Service) PRAVACHOL:9 EDT 02910 Tamsulosin FLOMAX 12/11/ CAPSULE 30 complet FLOM AX MEDGEN hydrochlori :59013 2019 ed ([address] de 0.4 MG 9 12:00: Medical Oral 00 AM Service) Capsule EDT FLOMAX:8636 69 200 ACTUAT PROAIR 12/11/ POWDER 1 complet PROAI R MEDGEN Albuterol RESPIC 2019 ed RESPICLICK ([address] 0.09 LICK:1 12:00: Medical MG/ACTUAT 054186 00 AM Service ) Dry Powder EDT Inhaler PROAIR RESPICLICK: [id number] Sulfamethox BACTRI 12/11/ TABLET 10 complet BACT RIM DS MEDGEN azole 800 M 2019 ed ([facility] MG / DS:849 12:00: Medical Trimethopri 580 00 AM Service ) m 160 MG EDT Oral Tablet [Bactrim] BACTRIM DS:075682 Albuterol ALBUTE 12/11/ SOLUTION 1 complet ALBU TEROL MEDGEN 0.83 MG/ML ROL:63 2019 ed ([facility] ay Inhalant 0208 12:00: Medical Solution 00 AM Service) ALBUTEROL:6 EDT 36570 Chlorpromaz THORAZ 11/19/ TABLET 30 complet THOR AZINE MEDGEN ine INE:99 2019 ed ([place] hydrochlori 1338 12:00: Medica l de 50 MG 00 AM Service) Oral Tablet EDT [Thorazine] THORAZINE:9 57096 Chlorpromaz THORAZ 11/19/ TABLET 30 complet THOR AZINE MEDGEN ine INE:99 2019 ed ([place] hydrochlori 1338 12:00: Medica l de 50 MG 00 AM Service) Oral Tablet EDT [Thorazine] THORAZINE:9 48391 Chlorpromaz THORAZ 11/19/ TABLET 30 complet THOR AZINE MEDGEN ine INE:99 2019 ed ([facility] hydrochlori 1338 12:00: Medica l de 50 MG 00 AM Service) Oral Tablet EDT [Thorazine] THORAZINE:9 35757 Furosemide LASIX: 11/17/ TABLET 7 complet LASIX MEDGEN 20 MG Oral 292590 7146 ed ([facility] Tablet 12:00: Medical LASIX:77678 00 AM Service ) 9 EDT Chlorpromaz CHLORP 11/17/ TABLET 9 complet CHLO RPROMAZI MEDGEN ine AZ2019 ed NE ([facility] hydrochlori NE:991 12:00: Medi karina de 25 MG 194 00 AM Service) Oral Tablet EDT CHLORPROMAZ INE:953362 Furosemide LASIX: 11/17/ TABLET 7 complet LASIX MEDGEN 20 MG Oral 543280 1432 ed ([facility] [facility] Tablet 12:00: Medical LASIX:17497 00 AM Service ) 9 EDT Chlorpromaz CHLORP 11/17/ TABLET 9 complet CHLO RPROMAZI MEDGEN ine 2019 ed NE ([place] hydrochlori NE:991 12:00: Medi karina de 25 MG 194 00 AM Service) Oral Tablet EDT CHLORPROMAZ INE:631801 Furosemide LASIX: 11/17/ TABLET 7 complet LASIX MEDGEN 20 MG Oral 803468 3900 ed ([facility] [facility] Tablet 12:00: Medical LASIX:38077 00 AM Service ) 9 EDT Chlorpromaz CHLORP 11/17/ TABLET 9 complet CHLO RPROMAZI MEDGEN ine AZ2019 ed NE ([place] hydrochlori NE:991 12:00: Medi karina de 25 MG 194 00 AM Service) Oral Tablet EDT CHLORPROMAZ INE:389664 Furosemide LASIX: 11/17/ TABLET 7 complet LASIX MEDGEN 20 MG Oral [id number] 7792 ed ([facility] Tablet 12:00: Medical LASIX:11870 00 AM Service ) 9 EDT Chlorpromaz CHLORP 11/17/ TABLET 9 complet CHLO RPROMAZI MEDGEN ine 2019 ed NE ([facility] hydrochlori NE:991 12:00: Medi karina de 25 MG 194 00 AM Service) Oral Tablet EDT CHLORPROMAZ INE:285416 200 ACTUAT PROAIR 09/11/ POWDER 1 complet PROAI R MEDGEN Albuterol RESPIC 2019 ed RESPICLICK ([address] 0.09 LICK:1 12:00: Medical MG/ACTUAT 811393 00 AM Service ) Dry Powder EDT Inhaler PROAIR RESPICLICK: 0292839 TRELEGY 09/11/ POWDER 1 complet TRELEGY ME DGEN ELLIPTA:194 2019 ed ELLIPTA (Gabe antunez 5044 12:00: Medical 00 AM Service) EDT 24 HR NICOTI 09/11/ FILM, 1 complet NICOTINE ME DGEN Nicotine NE 2019 EXTENDED ed PATCH ([address] 0.875 MG/HR PATCH: 12:00: RELEASE M edical Transdermal 00 AM Servi ce) Patch EDT NICOTINE PATCH: 0 Pravastatin PRAVAC 09/11/ TABLET 30 complet PRAV ACHOL MEDGEN Sodium 40 HOL:90 2019 ed ([place] [facility] MG Oral 4475 12:00: Medical Tablet 00 AM Service) PRAVACHOL:9 EDT 22515 Tamsulosin FLOMAX 09/11/ CAPSULE 30 complet FLOM AX MEDGEN hydrochlori :26057 2019 ed ([address] de 0.4 MG 9 12:00: Medical Oral 00 AM Service) Capsule EDT FLOMAX:8636 69 Albuterol ALBUTE 09/11/ SOLUTION 1 complet ALBU TEROL MEDGEN 0.83 MG/ML ROL:63 2019 ed ([facility] ay Inhalant 0208 12:00: Medical Solution 00 AM Service) ALBUTEROL:6 EDT 33115 MASK VORTEX complet MASK VOR CHERYL MEDGEN MISCELLANEO 2019 ed MISCELLANEOU ([place] US: 12:00: S Medical 00 AM Service) EDT LATEX complet LATEX GLOVES M EDGEN GLOVES 2019 ed LARGE ([place] LARGE 12:00: MISCELLANEOU Medi karina MISCELLANEO 00 AM S Service ) US: EDT 24 HR NICOTI 09/11/ FILM, 1 complet NICOTINE ME DGEN Nicotine NE 2019 EXTENDED ed PATCH ([address] 0.875 MG/HR PATCH: 12:00: RELEASE M edical Transdermal AM Servi ce) Patch EDT NICOTINE PATCH: 0 MASK VORTEX complet MASK VOR CHERYL MEDGEN MISCELLANEO 2019 ed MISCELLANEOU ([place]: 12:00: S Medical 00 AM Service) EDT TRELEGY 09/11/ POWDER 1 complet TRELEGY ME DGEN ELLIPTA:194 2019 ed ELLIPTA ([place] 5044 12:00: Medical 00 AM Service) EDT 200 ACTUAT PROAIR 09/11/ POWDER 1 complet PROAI R MEDGEN Albuterol RESPIC 2019 ed RESPICLICK ([address] 0.09 LICK:1 12:00: Medical MG/ACTUAT 756308 00 AM Service ) Dry Powder EDT Inhaler PROAIR RESPICLICK: [id number] Pravastatin PRAVAC 09/11/ TABLET 30 complet PRAV ACHOL MEDGEN Sodium 40 HOL:90 2019 ed ([place] MG Oral 4475 12:00: Medical Tablet 00 AM Service) PRAVACHOL:9 EDT 50599 Albuterol ALBUTE 09/11/ SOLUTION 1 complet ALBU TEROL MEDGEN 0.83 MG/ML ROL:63 2019 ed ([place] Inhalant 0208 12:00: Medical Solution 00 AM Service) ALBUTEROL:6 EDT 61413 LATEX complet LATEX GLOVES M EDGEN GLOVES 2020 ed LARGE ([place] [facility] ) US: EDT Tamsulosin FLOMAX 09/11/ CAPSULE 30 complet FLOM AX MEDGEN hydrochlori :15892 2019 ed ([address] de 0.4 MG 9 12:00: Medical Oral 00 AM Service) Capsule EDT FLOMAX:8636 69 Albuterol ALBUTE 09/11/ SOLUTION 1 complet ALBU TEROL MEDGEN 0.83 MG/ML ROL:63 2019 ed ([place] Inhalant 0208 12:00: Medical Solution 00 AM Service) ALBUTEROL:6 EDT 96150 LATEX complet LATEX GLOVES M EDGEN GLOVES 2020 ed LARGE ([place] LARGE 12:00: MISCELLANEOU [facility] karina MISCELLANEO 00 AM S Service ) US: EDT Tamsulosin FLOMAX 09/11/ CAPSULE 30 complet FLOM AX MEDGEN hydrochlori :04028 2019 ed ([address] de 0.4 MG 9 12:00: Medical Oral 00 AM Service) Capsule EDT FLOMAX:8636 69 24 HR NICOTI 09/11/ FILM, 1 complet NICOTINE ME DGEN Nicotine NE 2019 EXTENDED ed PATCH ([address] 0.875 MG/HR PATCH: 12:00: RELEASE M edical Transdermal [id number] 00 AM Servi ce) Patch EDT NICOTINE PATCH: 0 MASK VORTEX complet MASK VOR CHERYL MEDGEN MISCELLANEO 2019 ed MISCELLANEOU ([place]: 12:00: S Medical 00 AM Service) EDT 24 HR NICOTI 09/11/ FILM, 1 complet NICOTINE ME DGEN Nicotine NE 2019 EXTENDED ed PATCH ([address] 0.875 MG/HR PATCH: 12:00: RELEASE M edical Transdermal AM Servi ce) Patch EDT NICOTINE PATCH: 0 MASK VORTEX complet MASK VOR CHERYL MEDGEN MISCELLANEO 2019 ed MISCELLANE ([place]: 12:00: S Medical 00 AM Service) EDT LATEX complet LATEX GLOVES M EDGEN GLOVES 2019 ed LARGE ([place] LARGE 12:00: [facility] 00 AM S Service ) US: EDT 200 ACTUAT PROAIR 09/11/ POWDER 1 complet PROAI R MEDGEN Albuterol RESPIC 2019 ed RESPICLICK ([address] 0.09 LICK:1 12:00: Medical MG/ACTUAT 998111 00 AM Service ) Dry Powder EDT Inhaler PROAIR RESPICLICK: [id number] Pravastatin PRAVAC 09/11/ TABLET 30 complet PRAV ACHOL MEDGEN Sodium 40 HOL:90 2019 ed ([place] MG Oral 4475 12:00: Medical Tablet 00 AM Service) PRAVACHOL:9 EDT 92138 TRELEGY 09/11/ POWDER 1 complet TRELEGY ME DGEN ELLIPTA:194 2019 ed ELLIPTA ([place] 5044 12:00: Medical 00 AM Service) EDT 24 HR NICOTI 09/11/ FILM, 1 complet NICOTINE ME DGEN Nicotine NE 2019 EXTENDED ed PATCH ([address] 0.875 MG/HR PATCH: 12:00: RELEASE M edical Transdermal 00 AM Servi ce) Patch EDT NICOTINE PATCH: 0 MASK VORTEX complet MASK VOR CHERYL MEDGEN MISCELLANEO 2019 ed MISCELLANE ([place]: 12:00: S Medical 00 AM Service) EDT LATEX complet LATEX GLOVES M EDGEN GLOVES 2019 ed LARGE ([place] LARGE 12:00[facility] karina MISCELLANEO 00 AM S Service ) US: EDT NEBULIZER complet NEBULIZER MEDGEN DEVICE: 2019 ed DEVICE ([place] 12:00: Medical 00 AM Service) EDT NEBULIZER complet NEBULIZER MEDGEN DEVICE: 2019 ed DEVICE ([place] 12:00: Medical 00 AM Service) EDT NEBULIZER complet NEBULIZER MEDGEN DEVICE: 2019 ed DEVICE ([place] 12:00: Medical 00 AM Service) EDT NEBULIZER complet NEBULIZER MEDGEN DEVICE: 2019 ed DEVICE ([place] 12:00: Medical 00 AM Service) EDT NEBULIZER complet NEBULIZER MEDGEN DEVICE: 2019 ed DEVICE ([place] 12:00: Medical 00 AM Service) EDT Risperidone risper ORAL active take 1 NEXTGEN 3 MG Oral idone 2018 {tabl tablet by (Sa int Tablet 3 mg 12:00: et} oral route Tomi hs risperidone tablet 00 AM every Medi karina 3 mg tablet EDT bedtime Cente r) Trihexyphen trihex ORAL active take 1 NEXTGEN idyl ypheni 2018 {tabl tablet by ([facility] Hydrochlori dyl 5 12:00: et} oral route True de 5 MG mg 00 AM every Medical Oral Tablet tablet EDT bedtime [facility]) trihexyphen idyl 5 mg tablet Sertraline sertra ORAL active take 1 N EXTGEN 100 MG Oral line 2018 {tabl tablet by (S aint Tablet 100 mg 12:00: et} oral route [facility] sertraline tablet 00 AM every Medic al 100 mg EDT bedtime [place]) tablet Alprazolam Xanax ORAL active alprazola m 2 NEXTGEN 2 MG Oral 2 mg 2019 {tabl MG Oral ([facility] Tablet tablet 12:00: et} Tablet True [Xanax] 00 AM [Xanax] Medical Xanax 2 mg EDT [place]) tablet I stop # [id number] Alprazolam 2 Xanax 2 11/16/2018 1 {tbl} ORAL completed Alprazolam 2 NEXTGEN MG Oral mg 12:00:00 AM MG Oral (S aint Tablet tablet EDT Tablet True [Xanax] [Xanax] Medical Xanax 2 mg [place]) tablet I stop # [id number] Risperidone 3 risperidone 3 11/16/2018 1 ORAL completed take 1 NEXTGEN MG Oral Tablet mg tablet 12:00:00 AM {tbl} tablet by ([facility] risperidone 3 EDT oral route True mg tablet every Medical bedtime Center) Sertraline 100 sertraline 100 11/16/2018 1 ORAL completed take 1 NEXTGEN MG Oral Tablet mg tablet 12:00:00 AM {tbl} tablet by ([facility] sertraline 100 EDT oral route True mg tablet every Medical bedtime Center) Trihexyphenidyl trihexyphenidyl 11/16/2018 1 ORAL complet ed take 1 NEXTGEN Hydrochloride 5 5 mg tablet 12:00:00 AM {tbl} tablet by ([facility] MG Oral Tablet EDT oral route True trihexyphenidyl every Me dical 5 mg tablet bedtime Cente r) Alprazolam 2 MG Xanax 2 mg 10/19/2018 1 ORAL completed Alprazolam NEXTGEN Oral Tablet tablet 12:00:00 AM {tbl} 2 M G Oral ([facility] [Xanax] Xanax 2 EDT Tablet [facility]tha [facility]s mg tablet [Xanax] [facility]) Trihexyphenidyl trihexyphenidyl 10/19/2018 1 ORAL complet ed take 1 NEXTGEN Hydrochloride 5 5 mg tablet 12:00:00 AM {tbl} tablet by ([facility] MG Oral Tablet EDT oral route True trihexyphenidyl every Me dical 5 mg tablet bedtime Cente r) Sertraline 100 sertraline 100 10/19/2018 1 ORAL completed take 1 NEXTGEN MG Oral Tablet mg tablet 12:00:00 AM {tbl} tablet by ([facility] sertraline 100 EDT oral route True mg tablet every Medical bedtime Center) Risperidone 3 risperidone 3 10/19/2018 1 ORAL completed take 1 NEXTGEN MG Oral Tablet mg tablet 12:00:00 AM {tbl} tablet by ([facility] risperidone 3 EDT oral route True mg tablet every Medical bedtime Center) Alprazolam 2 MG Xanax 2 mg 09/21/2018 1 ORAL completed Alprazolam NEXTGEN Oral Tablet tablet 12:00:00 AM {tbl} 2 M G Oral ([facility] [Xanax] Xanax 2 EDT Tablet [facility] sephs mg tablet [Xanax] [facility]) Risperidone 3 risperidone 3 09/21/2018 1 ORAL completed take 1 NEXTGEN MG Oral Tablet mg tablet 12:00:00 AM {tbl} tablet by ( risperidone 3 EDT oral route True mg tablet every Medical bedtime Center) Trihexyphenidyl trihexyphenidyl 09/21/2018 1 ORAL complet ed take 1 NEXTGEN Hydrochloride 5 5 mg tablet 12:00:00 AM {tbl} tablet by ([facility] MG Oral Tablet EDT oral route True trihexyphenidyl every Me dical 5 mg tablet bedtime Cente r) Sertraline 100 sertraline 100 09/21/2018 1 ORAL completed take 1 NEXTGEN MG Oral Tablet mg tablet 12:00:00 AM {tbl} tablet by ( sertraline 100 EDT oral route True mg tablet every Medical bedtime Center) Sertraline 100 sertraline 100 08/24/2018 1 ORAL completed take 1 NEXTGEN MG Oral Tablet mg tablet 12:00:00 AM {tbl} tablet by ( sertraline 100 EDT oral route True mg tablet every Medical bedtime Center) Alprazolam 2 MG Xanax 2 mg 08/24/2018 1 ORAL completed Alprazolam NEXTGEN Oral Tablet tablet 12:00:00 AM {tbl} 2 M G Oral ([facility] [Xanax] Xanax 2 EDT Tablet [facility] sephs mg tablet [Xanax] [facility]) Trihexyphenidyl trihexyphenidyl 08/24/2018 1 ORAL complet ed take 1 NEXTGEN Hydrochloride 5 5 mg tablet 12:00:00 AM {tbl} tablet by ([facility] MG Oral Tablet EDT oral route True trihexyphenidyl every Me dical 5 mg tablet bedtime Cente r) Risperidone 3 risperidone 3 08/24/2018 1 ORAL completed take 1 NEXTGEN MG Oral Tablet mg tablet 12:00:00 AM {tbl} tablet by ( risperidone 3 EDT oral route True mg tablet every Medical bedtime Center) Alprazolam 2 MG Xanax 2 mg 07/27/2018 1 ORAL completed Alprazolam NEXTGEN Oral Tablet tablet 12:00:00 AM {tbl} 2 M G Oral ([facility] [Xanax] Xanax 2 EDT Tablet [facility] sephs mg tablet [Xanax] [facility]) Trihexyphenidyl trihexyphenidyl 07/27/2018 1 ORAL complet ed take 1 NEXTGEN Hydrochloride 5 5 mg tablet 12:00:00 AM {tbl} tablet by ([facility] MG Oral Tablet EDT oral route True trihexyphenidyl every Me dical 5 mg tablet bedtime Cente r) Sertraline 100 sertraline 100 07/27/2018 1 ORAL completed take 1 NEXTGEN MG Oral Tablet mg tablet 12:00:00 AM {tbl} tablet by ([facility] sertraline 100 EDT oral route True mg tablet every Medical bedtime Center) Risperidone 3 risperidone 3 07/27/2018 1 ORAL completed take 1 NEXTGEN MG Oral Tablet mg tablet 12:00:00 AM {tbl} tablet by ( risperidone 3 EDT oral route True mg tablet every Medical bedtime Center) Alprazolam 2 MG Xanax 2 mg 06/22/2018 1 ORAL completed Alprazolam NEXTGEN Oral Tablet tablet 12:00:00 AM {tbl} 2 M G Oral ([facility] [Xanax] Xanax 2 EDT Tablet Bertha sephs mg tablet [Xanax] [facility]) Trihexyphenidyl trihexyphenidyl 06/22/2018 1 ORAL complet ed take 1 NEXTGEN Hydrochloride 5 5 mg tablet 12:00:00 AM {tbl} tablet by ([facility] MG Oral Tablet EDT oral route True trihexyphenidyl every Me dical 5 mg tablet bedtime Cente r) Sertraline 100 sertraline 100 06/22/2018 1 ORAL completed take 1 NEXTGEN MG Oral Tablet mg tablet 12:00:00 AM {tbl} tablet by ( sertraline 100 EDT oral route True mg tablet every Medical bedtime Center) Risperidone 3 risperidone 3 06/22/2018 1 ORAL completed take 1 NEXTGEN MG Oral Tablet mg tablet 12:00:00 AM {tbl} tablet by ( risperidone 3 EDT oral route True mg tablet every Medical bedtime Center) Tamsulosin tamsuLOSIN 0.4 1 completed [facility] hydrochloride mg Capsule, True 0.4 MG Oral Ordered By: M edical Capsule Arnoldo Salgado tamsuLOSIN 0.4 MDDirections: 1 mg Capsule, capsule oral Ordered By: daily Mohammad Tate, MDDirections: 1 capsule oral daily Methadone methaDONE 40 mg 1 completed [facility] Hydrochloride tablet,soluble, True 0.333 MG/ML Ordered By: Shaw eddante Oral Suspension [facility] methaDONE 40 mg MDDirections: 1 tablet,soluble, tablet oral Ordered By: daily Kevin Tate, MDDirections: 1 tablet oral daily Famotidine 20 famotidine 20 1 completed [facility] MG Oral Tablet mg Tablet, [facility] famotidine 20 Ordered By: Medical mg Tablet, [facility] Ordered By: MDDirections: 1 Mohammad Tate, tablet oral MDDirections: 1 daily tablet oral daily Levofloxacin levofloxacin 1 completed [facility] 750 MG Oral 750 mg Tablet, [facility] Tablet Ordered By: Medica l levofloxacin Kristi Cesario ter 750 mg Tablet, Penar, Ordered By: FNPDirections: Kristi 1 tablet oral Penar, daily FNPDirections: 1 tablet oral daily Alprazolam 2 MG ALPRAZolam 2 mg 1 completed Oral Tablet Tablet, Ordered [facility] ALPRAZolam 2 mg By: Jacinda Medical Tablet, [facility] By: Jacinda MDDirections: 1 Veselinovic, tablet oral MDDirections: 1 twice a day PRN tablet oral anxiety twice a day PRN anxiety tamsuLOSIN 0.4 completed [facility] mg Capsule [facility] famotidine 20 1 completed S aint mg [facility] TabletDirection [facility] karina s: 1 tablet Center oral daily FACE MASK K N95 completed [facility] nicotine 21 completed Spenser nt mg/24 hour True patch 24 hour [facility] pravastatin 40 1 completed [facility] mg True TabletDirection Medi karina s: 1 tablet Center oral daily at bedtime methaDONE 40 mg 1 completed [facility] tablet,solubleD Vikki [facility] irections: 1 Medical tablet oral Center daily Trihexyphenidyl trihexyphenidyl 1 completed [facility] Hydrochloride 5 5 mg Tablet, [facility] MG Oral Tablet Ordered By: Medical trihexyphenidyl Tacho Jimé[facility] 5 mg Tablet, MDDirections: 1 Ordered By: tablet oral Tacho Jiménez, daily at MDDirections: 1 bedtime tablet oral daily at bedtime Risperidone 3 risperidone 3 1 completed [facility] MG Oral Tablet mg Tablet [facility] risperidone 3 Ordered By: Medical mg TabletTacho, Center Ordered By: MDDirections: 1 Tacho Darer, tablet oral MDDirections: 1 daily at tablet oral bedtime daily at bedtime albuterol completed ProAir Spenser nt sulfate (ProAir RespiClic k True RespiClick) 90 Medic al mcg Aerosol Center Powdr Breath Activated tamsuLOSIN 0.4 1 completed [facility] mg True CapsuleDirectio Medi karina ns: 1 capsule Center oral daily Famotidine 20 famotidine 20 1 completed [facility] MG Oral Tablet mg Tablet, True famotidine 20 Ordered By: Medical mg Tablet, Marcus Center Ordered By: Marcus Burleson MDDirections: 1 Fahnrich, tablet oral MDDirections: 1 daily tablet oral daily Albuterol 0.83 albuterol 3 mL completed [facility] MG/ML Inhalant sulfate 2.5 True Solution mg/3 mL (0.083 M edical albuterol %) Solution for [place] sulfate 2.5 Nebulization, mg/3 mL (0.083 Ordered By: %) Solution for Julius Routen, Nebulization, MDDirections: 3 Ordered By: mL by Julius Routen, inhalation MDDirections: 3 every six hours mL by PRN shortness inhalation of breath every six hours PRN shortness of breath methaDONE 35mg 1 completed [facility] Tablet, Ordered Vikki phs By: Julius Medical Nimon, [place] MDDirections: 1 tablet oral daily fluticasone-ume fluticasone 1 completed Trelegy clidin-vilanter furoate 0.1 El lipta True (Trelegy MG/ACTUAT / Medi karina Ellipta) 100 umeclidinium [place] mcg-62.5 mcg-25 0.0625 mcg/actuation MG/ACTUAT / blister with vilanterol device, Ordered 0.025 MG/ACTUAT By: Juluis Dry Powder Routen, Inhaler MDDirections: 1 puff by inhalation daily Tamsulosin tamsuLOSIN 0.4 1 completed [facility] hydrochloride mg Capsule, True 0.4 MG Oral Ordered By: M edical Capsule Julius Routen, Cesario ter tamsuLOSIN 0.4 MDDirections: 1 mg Capsule, capsule oral Ordered By: daily Julius Routen, MDDirections: 1 capsule oral daily 24 HR Nicotine nicotine 21 1 completed [facility] 0.875 MG/HR mg/24 hour Bertha sephs Transdermal patch 24 hour, Medical Patch nicotine Ordered By: Center 21 mg/24 hour Julius Routen, patch 24 hour, MDDirections: 1 Ordered By: patch Julius Routen, transdermal MDDirections: 1 daily patch transdermal daily Sertraline 100 sertraline 100 1 completed [facility] MG Oral Tablet mg Tablet, True sertraline 100 Ordered By: Medical mg Tablet, Tacho Hayser, Center Ordered By: MDDirections: 1 Tacho Darer, tablet oral MDDirections: 1 daily at tablet oral bedtime daily at bedtime Acetaminophen acetaminophen 2 completed [facility] 325 MG Oral 325 mg Tablet, True Tablet Ordered By: Medica l acetaminophen Julius Routen, Center 325 mg Tablet, MDDirections: 2 Ordered By: tablet oral Julius Routen, every six hours MDDirections: 2 PRN pain tablet oral every six hours PRN pain Ketorolac ketorolac 10 mg 1 completed [facility] Tromethamine 10 Tablet, Ordered True MG Oral Tablet By: Marcus Rapp ketorolac 10 mg Fahnrich, [place] Tablet, Ordered MDDirections: 1 By: Marcus tablet oral Fahnrich, every six hours MDDirections: 1 PRN pain tablet oral every six hours PRN pain Insurance Providers Payer name Policy type Policy ID Covered Covered republican's Policy P jose m / Coverage republican ID relationship to [place] [facility] ormation type erickson P MEDICAID [id number] SP [id number] O W [id number] [facility] O [id number] 01 [id number] ACUTE O [facility] O [id number] 01 [id number] ACUTE MVP/HHP O [id number] 01 [id number] O DONIS CARE [id number] 1 [id number] MEDICAID OF [id number] [facility] [id number] 1 [id number] PLANS MVP/HHP [id number] self [id number] MVP/HHP O [id number] 01 [id number] O [id number] 01 [id number] METHADONE [id number] SP [id number] MAINTENANCE PROGRAM RW PART C [id number] SP [id number] BEACON [id number] SP [id number] HEALTH-MVP "" O [id number] 01 [id number] Short Pump Care [id number] S [id number] [place] Donis FFS [id number] S [id number] Medicaid Medicaid [id number] S [id number] Wrap Claims Dental [id number] S [id number] Dentaquest MKD Lalo Vision [id number] S [id number] MKD Medicaid [id number] S [id number] Regular Clinic Visit Problems, Conditions, and Diagnoses Code Display Name Description Problem Type Effective Data Sour ce(s) Dates N39.0 Urinary tract URINARY TRACT Problem 12/18/2019 MEDGEN infection, site not INFECTION, SITE 12:00:00 AM ([place] specified NOT SPECIFIED EDT Medical Service) [id number] Schizophrenia Schizophrenia Complaint 11/25/2019 NETSMART (The 02:00:00 PM Guidance [facility] EDT [facility] ) [id number] Bipolar I disorder Bipolar I Complaint 11/25/2019 NETSMA RT (The disorder 02:00:00 PM Guidance [facility] EDT [facility] ) E78.2 Mixed MIXED Problem 03/30/2019 MEDGEN hyperlipidemia HYPERLIPIDEMIA 12:00:00 AM ([facility] EST Medical Service) E78.2 Mixed MIXED Problem 03/30/2019 MEDGEN hyperlipidemia HYPERLIPIDEMIA 12:00:00 AM ([facility] EST Medical Service) E78.2 Mixed MIXED Problem 03/30/2019 MEDGEN hyperlipidemia HYPERLIPIDEMIA 12:00:00 AM ([facility] EST Medical Service) E78.2 Mixed MIXED Problem 03/30/2019 MEDGEN hyperlipidemia HYPERLIPIDEMIA 12:00:00 AM [facility] E78.2 Mixed MIXED Problem 03/30/2019 MEDGEN hyperlipidemia HYPERLIPIDEMIA 12:00:00 AM ([facility] Medical Service) [id number] Major depressive Major depressive Complaint 03/04/2019 NE TSMART (The disorder disorder 02:00:00 PM Guidance [facility] ) 10/21/2019 10:00:00 PM EDT B18.2 Chronic viral CHRONIC VIRAL Problem 09/20/2016 MEDGEN hepatitis C HEPATITIS C 12:00:00 AM ([place] EDT Medical Service) B18.2 Chronic viral CHRONIC VIRAL Problem 09/20/2016 MEDGEN hepatitis C HEPATITIS C 12:00:00 AM ([place] EDT Medical Service) B18.2 Chronic viral CHRONIC VIRAL Problem 09/20/2016 MEDGEN hepatitis C HEPATITIS C 12:00:00 AM ([place] EDT Medical Service) B18.2 Chronic viral CHRONIC VIRAL Problem 09/20/2016 MEDGEN hepatitis C HEPATITIS C 12:00:00 AM ([place] EDT Medical Service) B18.2 Chronic viral CHRONIC VIRAL Problem 09/20/2016 MEDGEN hepatitis C HEPATITIS C 12:00:00 AM ([place] EDT Medical Service) Z13.89 Encounter for ENCOUNTER FOR Problem 03/24/2016 MEDGEN screening for other SCREENING FOR 12:00:00 AM ( [place] disorder OTHER DISORDER EST Medical Service) Z13.89 Encounter for ENCOUNTER FOR Problem 03/24/2016 MEDGEN screening for other SCREENING FOR 12:00:00 AM ( [place] disorder OTHER DISORDER EST Medical Service) Z13.89 Encounter for ENCOUNTER FOR Problem 03/24/2016 MEDGEN screening for other SCREENING FOR 12:00:00 AM ( [place] disorder OTHER DISORDER EST Medical Service) Z13.89 Encounter for ENCOUNTER FOR Problem 03/24/2016 MEDGEN screening for other SCREENING FOR 12:00:00 AM ( [place] disorder OTHER DISORDER EST Medical Service) Z13.89 Encounter for ENCOUNTER FOR Problem 03/24/2016 MEDGEN screening for other SCREENING FOR 12:00:00 AM ( [place] disorder OTHER DISORDER EST Medical Service) M25.561 Pain in right knee PAIN IN RIGHT Problem 11/05/2015 MED GEN KNEE 12:00:00 AM ([place] EDT Medical Service) F17.200 Nicotine NICOTINE Problem 11/05/2015 MEDGEN dependence, DEPENDENCE, 12:00:00 AM ([place] unspecified, UNSPECIFIED, EDT Medical uncomplicated UNCOMPLICATED Service) Z00.8 Encounter for other ENCOUNTER FOR Problem 11/05/2015 ME DGEN general examination OTHER GENERAL 12:00:00 AM ( [place] EXAMINATION EDT Medical Service) M25.561 Pain in right knee PAIN IN RIGHT Problem 11/05/2015 MED GEN KNEE 12:00:00 AM ([place] EDT Medical Service) F17.200 Nicotine NICOTINE Problem 11/05/2015 MEDGEN dependence, DEPENDENCE, 12:00:00 AM ([place] unspecified, UNSPECIFIED, EDT Medical uncomplicated UNCOMPLICATED Service) Z00.8 Encounter for other ENCOUNTER FOR Problem 11/05/2015 ME DGEN general examination OTHER GENERAL 12:00:00 AM ( [place] EXAMINATION EDT Medical Service) M25.561 Pain in right knee PAIN IN RIGHT Problem 11/05/2015 MED GEN KNEE 12:00:00 AM ([place] EDT Medical Service) F17.200 Nicotine NICOTINE Problem 11/05/2015 MEDGEN dependence, DEPENDENCE, 12:00:00 AM ([place] unspecified, UNSPECIFIED, EDT Medical uncomplicated UNCOMPLICATED Service) Z00.8 Encounter for other ENCOUNTER FOR Problem 11/05/2015 ME DGEN general examination OTHER GENERAL 12:00:00 AM ( [place] EXAMINATION EDT Medical Service) M25.561 Pain in right knee PAIN IN RIGHT Problem 11/05/2015 MED GEN KNEE 12:00:00 AM ([place] EDT Medical Service) F17.200 Nicotine NICOTINE Problem 11/05/2015 MEDGEN dependence, DEPENDENCE, 12:00:00 AM ([place] unspecified, UNSPECIFIED, EDT Medical uncomplicated UNCOMPLICATED Service) Z00.8 Encounter for other ENCOUNTER FOR Problem 11/05/2015 ME DGEN general examination OTHER GENERAL 12:00:00 AM ( [place] EXAMINATION EDT Medical Service) M25.561 Pain in right knee PAIN IN RIGHT Problem 11/05/2015 MED GEN KNEE 12:00:00 AM ([place] EDT Medical Service) F17.200 Nicotine NICOTINE Problem 11/05/2015 MEDGEN dependence, DEPENDENCE, 12:00:00 AM ([place] unspecified, UNSPECIFIED, EDT Medical uncomplicated UNCOMPLICATED Service) Z00.8 Encounter for other ENCOUNTER FOR Problem 11/05/2015 ME DGEN general examination OTHER GENERAL 12:00:00 AM ( [place] EXAMINATION EDT Medical Service) B17.10 Acute hepatitis C ACUTE HEPATITIS C Problem 08/24/2015 MEDGEN without hepatic WITHOUT HEPATIC 12:00:00 AM ( [place] COMA EDT Medical Service) B17.10 Acute hepatitis C ACUTE HEPATITIS C Problem 08/24/2015 MEDGEN without hepatic WITHOUT HEPATIC 12:00:00 AM ( [place] coma COMA EDT Medical Service) B17.10 Acute hepatitis C ACUTE HEPATITIS C Problem 08/24/2015 MEDGEN without hepatic WITHOUT HEPAT[facility] 12:00:00 [facility]) B17.10 Acute hepatitis C ACUTE HEPATITIS C Problem 08/24/2015 MEDGEN without hepatic WITHOUT HEPATIC 12:00:00 AM ( [place] coma COMA EDT Medical Service) B17.10 Acute hepatitis C ACUTE HEPATITIS C Problem 08/24/2015 MEDGEN without hepatic WITHOUT HEPATIC 12:00:00 AM ([place] coma COMA EDT Medical Service) M54.5 Low back pain LOW BACK PAIN Problem 03/03/2015 MEDGEN 12:00:00 AM ([facility] Medical Service) J45.909 Unspecified asthma, UNSPECIFIED Problem 03/03/2015 MEDG EN uncomplicated ASTHMA, 12:00:00 AM ([place] UNCOMPLICATED EST Medical Service) J44.9 Chronic obstructive CHRONIC Problem 03/03/2015 MEDGE N pulmonary disease, OBSTRUCTIVE 12:00:00 AM ([place] unspecified PULMONARY EST Medical DISEASE, Service) UNSPECIFIED M54.5 Low back pain LOW BACK PAIN Problem 03/03/2015 MEDGEN 12:00:00 AM ([facility] Medical Service) J45.909 Unspecified asthma, UNSPECIFIED Problem 03/03/2015 MEDG EN uncomplicated ASTHMA, 12:00:00 AM ([place] UNCOMPLICATED EST Medical Service) J44.9 Chronic obstructive CHRONIC Problem 03/03/2015 MEDGE N pulmonary disease, OBSTRUCTIVE 12:00:00 AM ([place] unspecified PULMONARY EST Medical DISEASE, Service) UNSPECIFIED M54.5 Low back pain LOW BACK PAIN Problem 03/03/2015 MEDGEN 12:00:00 AM ([facility] Medical Service) J45.909 Unspecified asthma, UNSPECIFIED Problem 03/03/2015 MEDG EN uncomplicated ASTHMA, 12:00:00 AM ([place] UNCOMPLICATED EST Medical Service) J44.9 Chronic obstructive CHRONIC Problem 03/03/2015 MEDGE N pulmonary disease, OBSTRUCTIVE 12:00:00 AM ([facility] unspecified PULMONARY EST Medical DISEASE, Service) UNSPECIFIED M54.5 Low back pain LOW BACK PAIN Problem 03/03/2015 MEDGEN 12:00:00 AM ([facility] Medical Service) J45.909 Unspecified asthma, UNSPECIFIED Problem 03/03/2015 MEDG EN uncomplicated ASTHMA, 12:00:00 AM ([place] UNCOMPLICATED EST Medical Service) J44.9 Chronic obstructive CHRONIC Problem 03/03/2015 MEDGE N pulmonary disease, OBSTRUCTIVE 12:00:00 AM ([facility] unspecified PULMONARY EST Medical DISEASE, Service) UNSPECIFIED M54.5 Low back pain LOW BACK PAIN Problem 03/03/2015 MEDGEN 12:00:00 AM ([place] EST Medical Service) J45.909 Unspecified asthma, UNSPECIFIED Problem 03/03/2015 MEDG EN uncomplicated ASTHMA, 12:00:00 AM ([place] UNCOMPLICATED EST Medical Service) J44.9 Chronic obstructive CHRONIC Problem 03/03/2015 MEDGE N pulmonary disease, OBSTRUCTIVE 12:00:00 AM ([facility] unspecified PULMONARY EST Medical DISEASE, Service) UNSPECIFIED Z68.30 Body mass index BODY MASS INDEX Diagnosis 12/22/2019 Vivek Biswas (BMI) 30.0-30.9, (BMI)30.0-30.9, 06:36:00 PM [facility] adult ADULT EDT N40.0 Benign prostatic BENIGN PROSTATIC Diagnosis 12/22/2019 [facility] hyperplasia without HYPERPLASIA 06:36:00 PM [facility] lower urinary tract WITHOUT LOWER EDT symptoms URINRY TRACT SYMP E66.9 Obesity, OBESITY, Diagnosis 12/22/2019 [facility] unspecified UNSPECIFIED 06:36:[address] EDT R31.0 Gross hematuria GROSS HEMATURIA Diagnosis 12/22/2019 Vivek Biswas 06:36:00 PM [facility] Cent[facility] EDT K74.60 Unspecified UNSPECIFIED Diagnosis 12/22/2019 [facility] cirrhosis of liver CIRRHOSIS OF 06:36:00 PM [facility] LIVER EDT B19.20 Unspecified viral UNSPECIFIED VIRAL Diagnosis 12/22/2019 [facility] hepatitis C without HEPATITIS C 06:36:00 PM [facility] hepatic coma WITHOUT HEPATIC EDT COMA J44.9 Chronic obstructive CHRONIC Diagnosis 12/22/2019 [facility] pulmonary disease, OBSTRUCTIVE 06:36:00 PM [facility] unspecified PULMONARY EDT DISEASE, UNSPECIFIED C22.8 Malignant neoplasm MALIGNANT Diagnosis 12/22/2019 [facility] of liver, primary, NEOPLASM OF 06:36:00 PM [facility] unspecified as to LIVER, PRIMARY, EDT type UNSPECIFIED TO TYPE F11.20 Opioid dependence, OPIOID Diagnosis 12/22/2019 [facility] uncomplicated DEPENDENCE, 06:36:00 PM Medical C enter UNCOMPLICATED EDT N20.2 Calculus of kidney CALCULUS OF Diagnosis 12/22/2019 [facility] with calculus of KIDNEY WITH 06:36:00 PM [facility] ureter CALCULUS OF EDT URETER Z87.442 Personal history of PERSONAL HISTORY Diagnosis 12/22/2019 [facility] urinary calculi OF URINARY 06:36:00 PM Medical Center CALCULI EDT N20.1 Calculus of ureter CALCULUS OF Diagnosis 12/18/2019 [facility] URETER 11:25:00 AM Medical Cente r EDT Z53.21 Procedure and PROC/TRTMT NOT Diagnosis 12/18/2019 [facility] treatment not CRD OUT D/T PT LV 06:46:00 AM [facility] carried out due to BEF SEEN BY [facility] EDT patient leaving CARE PROV prior to being seen by health care provider M54.9 Dorsalgia, DORSALGIA, Diagnosis 12/18/2019 [facility] unspecified UNSPECIFIED 06:46:[address] EDT R31.9 Hematuria, HEMATURIA, Diagnosis 12/18/2019 [facility] unspecified UNSPECIFIED 03:47:[address] EDT Z72.0 Tobacco use TOBACCO USE Diagnosis 12/14/2019 [facility] 01:41:00 PM [facility] EDT J45.909 Unspecified asthma, UNSPECIFIED Diagnosis 12/14/2019 Vivek Biswas uncomplicated ASTHMA, 01:41:00 PM Medical Ce nter UNCOMPLICATED EDT N39.0 Urinary tract URINARY TRACT Diagnosis 12/14/2019 [facility] infection, site not INFECTION, SITE 01:41:00 PM Medical Center specified NOT SPECIFIED EDT R30.0 Dysuria DYSURIA Diagnosis 12/14/2019 [facility] 01:41:00 PM Medical Cent[facility] r EDT N20.0 Calculus of kidney CALCULUS OF Diagnosis 11/27/2019 [facility] KIDNEY 08:31:00 AM Medical Cente r EDT F17.210 Nicotine NICOTINE Diagnosis 11/20/2019 [facility] dependence, DEPENDENCE, 04:34:[address] cigarettes, CIGARETTES, EDT uncomplicated UNCOMPLICATED R06.6 Hiccough HICCOUGH Diagnosis 11/20/2019 [facility] 04:34:00 PM Medical Cent[facility] r EDT R10.9 Unspecified UNSPECIFIED Diagnosis 11/20/2019 [facility] abdominal pain ABDOMINAL PAIN 04:34:00 PM Medic tn Center EDT Z01.818 Encounter for other ENCOUNTER FOR Diagnosis 10/30/2019 [facility] True preprocedural OTHER 10:26:00 AM Medical Ce nter examination PREPROCEDURAL EDT EXAMINATION C22.0 Liver cell LIVER CELL Diagnosis 09/19/2019 [facility] carcinoma CARCINOMA 02:09:00 PM Medical Cent[facility] r EDT K76.9 Liver disease, LIVER DISEASE, Diagnosis 09/19/2019 [facility] unspecified UNSPECIFIED 02:09:[address] EDT R10.11 Right upper RIGHT UPPER Diagnosis 09/19/2019 [facility] quadrant pain QUADRANT PAIN 02:09:00 PM Medical Center EDT R16.0 Hepatomegaly, not HEPATOMEGALY, NOT Diagnosis 08/13/2019 [facility] elsewhere ELSEWHERE 01:05:00 PM Medical Cente r classified CLASSIFIED EDT J18.9 Pneumonia, PNEUMONIA, Diagnosis 06/05/2019 [facility] unspecified UNSPECIFIED 11:43:[address] organism ORGANISM EST K29.00 Acute gastritis ACUTE GASTRITIS Diagnosis 04/14/2019 Vivek Biswas without bleeding WITHOUT BLEEDING 10:38:00 AM [facility] V65.44 HUMAN HIV Counseling Diagnosis 06/05/2018 [place] ( [place] IMMUNODEFICIENCY 06:11:50 PM [facility] VIRUS (HIV) EST [facility]) Diagnosis NEXTGEN ([facility]) Surgeries/Procedures Procedure Description Date Indications Data Source(s) Documentation of current 12/18/2019 MED GEN ([facility] (procedure) 12:00:00 AM EDT edical Service) Documentation of current 12/18/2019 MED GEN ([facility] (procedure) 12:00:00 AM EDT edical Service) Documentation of current 11/18/2019 MED GEN ([facility] medications (procedure) 12:00:00 AM EDT edical Service) Documentation of current 11/18/2019 MED GEN ([place] medications (procedure) 12:00:00 AM EDT edical Service) Documentation of current 11/18/2019 MED GEN ([place] medications (procedure) 12:00:00 AM EDT edical Service) Documentation of current 11/18/2019 MED GEN ([place] medications (procedure) 12:00:00 AM EDT edical Service) Documentation of current 11/18/2019 MED GEN ([facility] medications (procedure) 12:00:00 AM EDT edical Service) Documentation of current 11/18/2019 MED GEN ([place] medications (procedure) 12:00:00 AM EDT edical Service) Documentation of current 11/18/2019 MED GEN ([place] medications (procedure) 12:00:00 AM EDT edical Service) Documentation of current 11/18/2019 MED GEN ([facility] medications (procedure) 12:00:00 AM EDT edical Service) Documentation of current 10/30/2019 MED GEN ([place] medications (procedure) 12:00:00 AM EDT edical Service) Documentation of current 10/30/2019 MED GEN ([facility] medications (procedure) 12:00:00 AM EDT edical Service) Documentation of current 10/30/2019 MED GEN ([place] medications (procedure) 12:00:00 AM EDT edical Service) Documentation of current 10/30/2019 MED GEN ([place] medications (procedure) 12:00:00 AM EDT edical Service) Documentation of current 10/30/2019 MED GEN ([place] medications (procedure) 12:00:00 AM EDT edical Service) Documentation of current 10/30/2019 MED GEN ([place] medications (procedure) 12:00:00 AM EDT edical Service) Documentation of current 10/30/2019 MED GEN ([place] medications (procedure) 12:00:00 AM EDT edical Service) Documentation of current 10/30/2019 MED GEN ([place] medications (procedure) 12:00:00 AM EDT edical Service) Documentation of current 10/30/2019 MED GEN ([place] medications (procedure) 12:00:00 AM EDT edical Service) Documentation of current 10/30/2019 MED GEN ([place] medications (procedure) 12:00:00 AM EDT edical Service) Documentation of current 10/30/2019 MED GEN ([place] medications (procedure) 12:00:00 AM EDT edical Service) Documentation of current 10/30/2019 MED GEN ([facility] (procedure) 12:00:00 AM EDT edical Service) Documentation of current 10/30/2019 MED GEN ([place] medications (procedure) 12:00:00 AM EDT edical Service) Documentation of current 10/30/2019 MED GEN ([place] medications (procedure) 12:00:00 AM EDT edical Service) Documentation of current 10/30/2019 MED GEN ([place] medications (procedure) 12:00:00 AM EDT edical Service) Documentation of current 10/30/2019 MED GEN ([facility] (procedure) 12:00:00 AM EDT edical Service) Documentation of current 10/30/2019 MED GEN ([place] medications (procedure) 12:00:00 AM EDT edical Service) Documentation of current 10/30/2019 MED GEN ([place] medications (procedure) 12:00:00 AM EDT edical Service) Documentation of current 10/30/2019 MED GEN ([facility] (procedure) 12:00:00 AM EDT edical Service) Documentation of current 10/30/2019 MED GEN ([place] medications (procedure) 12:00:00 AM EDT edical Service) Documentation of current 10/30/2019 MED GEN ([place] medications (procedure) 12:00:00 AM EDT edical Service) Documentation of current 10/30/2019 MED GEN ([place] (procedure) 12:00:00 AM EDT edical Service) Documentation of current 10/30/2019 MED GEN ([place] medications (procedure) 12:00:00 AM EDT edical Service) Documentation of current 10/30/2019 MED GEN ([place] (procedure) 12:00:00 AM EDT edical Service) Documentation of current 10/30/2019 MED GEN ([place] medications (procedure) 12:00:00 AM EDT edical Service) Documentation of current 10/30/2019 MED GEN ([place] medications (procedure) 12:00:00 AM EDT edical Service) Documentation of current 10/30/2019 MED GEN ([place] medications (procedure) 12:00:00 AM EDT edical Service) Documentation of current 10/30/2019 MED GEN ([place] medications (procedure) 12:00:00 AM EDT edical Service) Documentation of current 10/30/2019 MED GEN ([place] (procedure) 12:00:00 AM EDT edical Service) Documentation of current 10/30/2019 MED GEN ([place] [facility] (procedure) 12:00:00 AM EDT edical Service) Documentation of current 10/30/2019 MED GEN ([place] medications (procedure) 12:00:00 AM EDT edical Service) Documentation of current 10/30/2019 MED GEN ([place] medications (procedure) 12:00:00 AM EDT edical Service) Documentation of current 10/30/2019 MED GEN ([place] medications (procedure) 12:00:00 AM EDT edical Service) Documentation of current 10/30/2019 MED GEN ([place] medications (procedure) 12:00:00 AM EDT edical Service) Documentation of current 10/30/2019 MED GEN ([facility] (procedure) 12:00:00 AM EDT edical Service) Documentation of current 10/30/2019 MED GEN ([place] medications (procedure) 12:00:00 AM EDT edical Service) Documentation of current 10/30/2019 MED GEN ([place] medications (procedure) 12:00:00 AM EDT edical Service) Documentation of current 09/12/2019 MED GEN ([facility] (procedure) 12:00:00 AM EDT edical Service) Documentation of current 09/12/2019 MED GEN ([place] [facility] (procedure) 12:00:00 AM EDT edical Service) Documentation of current 09/12/2019 MED GEN ([place] (procedure) 12:00:00 AM EDT edical Service) Documentation of current 09/12/2019 MED GEN ([place] [facility] (procedure) 12:00:00 AM EDT edical Service) Documentation of current 09/12/2019 MED GEN ([place] medications (procedure) 12:00:00 AM EDT edical Service) Documentation of current 09/12/2019 MED GEN ([facility] (procedure) 12:00:00 AM EDT edical Service) Documentation of current 09/12/2019 MED GEN ([place] (procedure) 12:00:00 AM EDT edical Service) Documentation of current 09/12/2019 MED GEN ([place] medications (procedure) 12:00:00 AM EDT edical Service) Documentation of current 09/12/2019 MED GEN ([facility] (procedure) 12:00:00 AM EDT edical Service) Documentation of current 09/12/2019 MED GEN ([place] (procedure) 12:00:00 AM EDT edical Service) Documentation of current 09/12/2019 MED GEN ([place] [facility] (procedure) 12:00:00 AM EDT edical Service) Documentation of current 09/12/2019 MED GEN ([place] (procedure) 12:00:00 AM EDT edical Service) Documentation of current 09/12/2019 MED GEN ([place] [facility] (procedure) 12:00:00 AM EDT edical Service) Documentation of current 09/12/2019 MED GEN ([place] medications (procedure) 12:00:00 AM EDT edical Service) Documentation of current 09/12/2019 MED GEN ([place] (procedure) 12:00:00 AM EDT edical Service) Documentation of current 09/12/2019 MED GEN ([place] [facility] (procedure) 12:00:00 AM EDT edical Service) Documentation of current 09/12/2019 MED GEN ([facility] (procedure) 12:00:00 AM EDT edical Service) Documentation of current 09/12/2019 MED GEN ([place] (procedure) 12:00:00 AM EDT edical Service) Documentation of current 09/12/2019 MED GEN ([place] medications (procedure) 12:00:00 AM EDT edical Service) Documentation of current 09/12/2019 MED GEN ([place] medications (procedure) 12:00:00 AM EDT edical Service) Documentation of current 09/12/2019 MED GEN ([facility] (procedure) 12:00:00 AM EDT edical Service) Documentation of current 09/12/2019 MED GEN ([place] medications (procedure) 12:00:00 AM EDT edical Service) Documentation of current 09/12/2019 MED GEN ([place] medications (procedure) 12:00:00 AM EDT edical Service) Documentation of current 09/12/2019 MED GEN ([place] medications (procedure) 12:00:00 AM EDT edical Service) Documentation of current 09/12/2019 MED GEN ([facility] (procedure) 12:00:00 AM EDT edical Service) Documentation of current 09/12/2019 MED GEN ([place] medications (procedure) 12:00:00 AM EDT edical Service) Documentation of current 09/12/2019 MED GEN ([place] medications (procedure) 12:00:00 AM EDT edical Service) Documentation of current 09/12/2019 MED GEN ([facility] (procedure) 12:00:00 AM EDT edical Service) Documentation of current 09/12/2019 MED GEN ([place] [facility] (procedure) 12:00:00 AM EDT edical Service) Documentation of current 09/12/2019 MED GEN ([place] [facility] (procedure) 12:00:00 AM EDT edical Service) Documentation of current 09/12/2019 MED GEN ([place] medications (procedure) 12:00:00 AM EDT edical Service) Documentation of current 09/12/2019 MED GEN ([place] medications (procedure) 12:00:00 AM EDT edical Service) Documentation of current 09/12/2019 MED GEN ([place] (procedure) 12:00:00 AM EDT edical Service) Documentation of current 09/12/2019 MED GEN ([place] [facility] (procedure) 12:00:00 AM EDT edical Service) Documentation of current 09/12/2019 MED GEN ([place] [facility] (procedure) 12:00:00 AM EDT edical Service) Documentation of current 06/19/2019 MED GEN ([place] (procedure) 12:00:00 AM EDT edical Service) Documentation of current 06/19/2019 MED GEN ([place] [facility] (procedure) 12:00:00 AM EDT edical Service) Documentation of current 06/19/2019 MED GEN ([place] [facility] (procedure) 12:00:00 AM EDT edical Service) Documentation of current 06/19/2019 MED GEN ([place] [facility] (procedure) 12:00:00 AM EDT edical Service) Documentation of current 06/19/2019 MED GEN ([place] [facility] (procedure) 12:00:00 AM EDT edical Service) Documentation of current 06/19/2019 MED GEN ([place] [facility] (procedure) 12:00:00 AM EDT edical Service) Documentation of current 06/19/2019 MED GEN ([place] medications (procedure) 12:00:00 AM EDT edical Service) Documentation of current 06/19/2019 MED GEN ([place] medications (procedure) 12:00:00 AM EDT edical Service) Documentation of current 06/19/2019 MED GEN ([place] medications (procedure) 12:00:00 AM EDT edical Service) Documentation of current 06/19/2019 MED GEN ([place] medications (procedure) 12:00:00 AM EDT edical Service) Documentation of current 06/19/2019 MED GEN ([facility] (procedure) 12:00:00 AM EDT edical Service) Documentation of current 06/19/2019 MED GEN ([place] medications (procedure) 12:00:00 AM EDT edical Service) Documentation of current 06/19/2019 MED GEN ([place] (procedure) 12:00:00 AM EDT edical Service) Documentation of current 06/19/2019 MED GEN ([place] medications (procedure) 12:00:00 AM EDT edical Service) Documentation of current 06/19/2019 MED GEN ([place] medications (procedure) 12:00:00 AM EDT edical Service) Documentation of current 06/19/2019 MED GEN ([facility] (procedure) 12:00:00 AM EDT edical Service) Documentation of current 06/19/2019 MED GEN ([place] medications (procedure) 12:00:00 AM EDT edical Service) Documentation of current 06/19/2019 MED GEN ([place] medications (procedure) 12:00:00 AM EDT edical Service) Documentation of current 06/19/2019 MED GEN ([facility] (procedure) 12:00:00 AM EDT edical Service) Documentation of current 06/19/2019 MED GEN ([place] medications (procedure) 12:00:00 AM EDT edical Service) Documentation of current 06/19/2019 MED GEN ([place] medications (procedure) 12:00:00 AM EDT edical Service) Documentation of current 06/19/2019 MED GEN ([place] (procedure) 12:00:00 AM EDT edical Service) Documentation of current 06/19/2019 MED GEN ([place] medications (procedure) 12:00:00 AM EDT edical Service) Documentation of current 06/19/2019 MED GEN ([place] medications (procedure) 12:00:00 AM EDT edical Service) Documentation of current 06/19/2019 MED GEN ([place] medications (procedure) 12:00:00 AM EDT edical Service) Documentation of current 06/19/2019 MED GEN ([place] medications (procedure) 12:00:00 AM EDT edical Service) Documentation of current 06/19/2019 MED GEN ([place] medications (procedure) 12:00:00 AM EDT edical Service) Documentation of current 06/19/2019 MED GEN ([facility] (procedure) 12:00:00 AM EDT edical Service) Documentation of current 06/19/2019 MED GEN ([place] (procedure) 12:00:00 AM EDT edical Service) Documentation of current 06/19/2019 MED GEN ([place] medications (procedure) 12:00:00 AM EDT edical Service) Documentation of current 06/19/2019 MED GEN ([place] medications (procedure) 12:00:00 AM EDT edical Service) Documentation of current 06/19/2019 MED GEN ([place] medications (procedure) 12:00:00 AM EDT edical Service) Documentation of current 06/19/2019 MED GEN ([place] (procedure) 12:00:00 AM EDT edical Service) Documentation of current 06/19/2019 MED GEN ([place] medications (procedure) 12:00:00 AM EDT edical Service) Documentation of current 06/19/2019 MED GEN ([place] medications (procedure) 12:00:00 AM EDT edical Service) Documentation of current 06/19/2019 MED GEN ([place] medications (procedure) 12:00:00 AM EDT edical Service) Documentation of current 06/19/2019 MED GEN ([place] medications (procedure) 12:00:00 AM EDT edical Service) Documentation of current 06/19/2019 MED GEN ([place] (procedure) 12:00:00 AM EDT edical Service) Documentation of current 06/19/2019 MED GEN ([place] medications (procedure) 12:00:00 AM EDT edical Service) Documentation of current 06/19/2019 MED GEN ([facility] (procedure) 12:00:00 AM EDT edical Service) Documentation of current 06/19/2019 MED GEN ([place] medications (procedure) 12:00:00 AM EDT edical Service) Documentation of current 06/19/2019 MED GEN ([place] (procedure) 12:00:00 AM EDT edical Service) Documentation of current 06/19/2019 MED GEN ([place] medications (procedure) 12:00:00 AM EDT edical Service) Documentation of current 06/19/2019 MED GEN ([place] (procedure) 12:00:00 AM EDT edical Service) Documentation of current 06/19/2019 MED GEN ([place] medications (procedure) 12:00:00 AM EDT edical Service) Documentation of current 06/19/2019 MED GEN ([place] medications (procedure) 12:00:00 AM EDT edical Service) Documentation of current 06/19/2019 MED GEN ([place] (procedure) 12:00:00 AM EDT edical Service) Documentation of current 06/19/2019 MED GEN ([place] medications (procedure) 12:00:00 AM EDT edical Service) Documentation of current 06/19/2019 MED GEN ([place] (procedure) 12:00:00 AM EDT edical Service) Documentation of current 06/19/2019 MED GEN ([place] medications (procedure) 12:00:00 AM EDT edical Service) Documentation of current 06/19/2019 MED GEN ([place] medications (procedure) 12:00:00 AM EDT edical Service) Documentation of current 06/19/2019 MED GEN ([place] medications (procedure) 12:00:00 AM EDT edical Service) Documentation of current 06/19/2019 MED GEN ([facility] (procedure) 12:00:00 AM EDT edical Service) Documentation of current 06/19/2019 MED GEN ([facility] (procedure) 12:00:00 AM EDT edical Service) Documentation of current 06/19/2019 MED GEN ([place] medications (procedure) 12:00:00 AM EDT edical Service) Documentation of current 06/05/2019 MED GEN ([facility] (procedure) 12:00:00 AM EST edical Service) Documentation of current 06/05/2019 MED GEN ([place] (procedure) 12:00:00 AM EST edical Service) Documentation of current 06/05/2019 MED GEN ([place] medications (procedure) 12:00:00 AM EST edical Service) Documentation of current 06/05/2019 MED GEN ([place] medications (procedure) 12:00:00 AM EST edical Service) Documentation of current 06/05/2019 MED GEN ([place] medications (procedure) 12:00:00 AM EST edical Service) Documentation of current 06/05/2019 MED GEN ([place] (procedure) 12:00:00 AM EST edical Service) Documentation of current 06/05/2019 MED GEN ([place] medications (procedure) 12:00:00 AM EST edical Service) Documentation of current 06/05/2019 MED GEN ([place] medications (procedure) 12:00:00 AM EST edical Service) Documentation of current 06/05/2019 MED GEN ([place] medications (procedure) 12:00:00 AM EST edical Service) Documentation of current 06/05/2019 MED GEN ([facility] (procedure) 12:00:00 AM EST edical Service) Documentation of current 03/30/2019 MED GEN ([place] medications (procedure) 12:00:00 AM EST edical Service) Documentation of current 03/30/2019 MED GEN ([place] medications (procedure) 12:00:00 AM EST edical Service) Documentation of current 03/30/2019 MED GEN ([facility] (procedure) 12:00:00 AM EST edical Service) Documentation of current 03/30/2019 MED GEN ([place] medications (procedure) 12:00:00 AM EST edical Service) Documentation of current 03/30/2019 MED GEN ([place] medications (procedure) 12:00:00 AM EST edical Service) Documentation of current 03/30/2019 MED GEN ([place] medications (procedure) 12:00:00 AM EST edical Service) Documentation of current 03/30/2019 MED GEN ([facility] (procedure) 12:00:00 AM EST edical Service) Documentation of current 03/30/2019 MED GEN ([place] medications (procedure) 12:00:00 AM EST edical Service) Documentation of current 03/30/2019 MED GEN ([place] medications (procedure) 12:00:00 AM EST edical Service) Documentation of current 03/30/2019 MED GEN ([place] medications (procedure) 12:00:00 AM EST edical Service) Psychotherapy (30 Mins) W/ 01/16/2019 N EXTGEN ([facility] 12:00:00 AM EDT [facility] - 01/16/2019 Center) 12:00:00 AM EDT OFFICE/OUTPATIENT VISIT, 01/16/2019 NEX TGEN ([facility] 12:00:00 AM EDT [facility] - 01/16/2019 [place]) 12:00:00 AM EDT Documentation of current 12/21/2018 MED GEN ([place] medications (procedure) 12:00:00 AM EDT edical Service) Documentation of current 12/21/2018 MED GEN ([facility] (procedure) 12:00:00 AM EDT edical Service) Documentation of current 12/21/2018 MED GEN ([place] medications (procedure) 12:00:00 AM EDT edical Service) Documentation of current 12/21/2018 MED GEN ([facility] medications (procedure) 12:00:00 AM EDT edical Service) Documentation of current 12/21/2018 MED GEN ([place] medications (procedure) 12:00:00 AM EDT edical Service) Documentation of current 12/21/2018 MED GEN ([place] medications (procedure) 12:00:00 AM EDT edical Service) Documentation of current 12/21/2018 MED GEN ([facility] (procedure) 12:00:00 AM EDT edical Service) Documentation of current 12/21/2018 MED GEN ([place] medications (procedure) 12:00:00 AM EDT edical Service) Documentation of current 12/21/2018 MED GEN ([place] medications (procedure) 12:00:00 AM EDT edical Service) Documentation of current 12/21/2018 MED GEN ([facility] (procedure) 12:00:00 AM EDT edical Service) Psychotherapy (30 Mins) W/ 12/19/2018 N EXTGEN ([facility] 12:00:00 AM EDT [facility] - 12/19/2018 [place]) 12:00:00 AM EDT OFFICE/OUTPATIENT VISIT, 12/19/2018 N[facility] TGEN ([facility] EST 12:00:00 AM EDT [facility] - 12/19/2018 [place]) 12:00:00 AM EDT Individual Psychotherapy 12/19/2018 NEX TGEN ([facility] (30 Min) 12:00:00 AM EDT [facility] 12/19/2018 [place]) 12:00:00 AM EDT Psychotherapy (30 Mins) W/ 11/16/2018 N EXTGEN ([facility] E&M 12:00:00 AM EDT [facility] 11/16/2018 [place]) 12:00:00 AM EDT OFFICE/OUTPATIENT VISIT, 11/16/2018 NEX TGEN ([facility] EST 12:00:00 AM EDT [facility] 11/16/2018 [place]) 12:00:00 AM EDT Individual Psychotherapy 11/16/2018 NEX TGEN ([facility] (30 Min) 12:00:00 AM EDT [facility] 11/16/2018 [place]) 12:00:00 AM EDT Documentation of current 11/09/2018 MED GEN ([place] medications (procedure) 12:00:00 AM EDT edical Service) Documentation of current 11/09/2018 MED GEN ([facility] medications (procedure) 12:00:00 AM EDT edical Service) Documentation of current 11/09/2018 MED GEN ([facility] medications (procedure) 12:00:00 AM EDT edical Service) Documentation of current 11/09/2018 MED GEN ([facility] medications (procedure) 12:00:00 AM EDT edical Service) Documentation of current 11/09/2018 MED GEN ([place] medications (procedure) 12:00:00 AM EDT edical Service) Documentation of current 11/09/2018 MED GEN ([place] medications (procedure) 12:00:00 AM EDT edical Service) Documentation of current 11/09/2018 MED GEN ([facility] medications (procedure) 12:00:00 AM EDT edical Service) Documentation of current 11/09/2018 MED GEN ([place] medications (procedure) 12:00:00 AM EDT edical Service) Documentation of current 11/09/2018 MED GEN ([facility] medications (procedure) 12:00:00 AM EDT edical Service) Documentation of current 11/09/2018 MED GEN ([place] medications (procedure) 12:00:00 AM EDT edical Service) Psychotherapy (30 Mins) W/ 10/19/2018 N EXTGEN ([facility] E&M 12:00:00 AM EDT [facility] 10/19/2018 [place]) 12:00:00 AM EDT OFFICE/OUTPATIENT VISIT, 10/19/2018 NEX TGEN ([facility] EST 12:00:00 AM EDT [facility] 10/19/2018 [place]) 12:00:00 AM EDT Individual Psychotherapy 10/19/2018 NEX TGEN ([facility] (30 Min) 12:00:00 AM EDT [facility] - 10/19/2018 [place]) 12:00:00 AM EDT Psychotherapy (30 Mins) W/ 09/21/2018 N EXTGEN ([facility] E&M 12:00:00 AM EDT [facility] - 09/21/2018 [place]) 12:00:00 AM EDT OFFICE/OUTPATIENT VISIT, 09/21/2018 NEX TGEN ([facility] EST 12:00:00 AM EDT [facility] - 09/21/2018 [place]) 12:00:00 AM EDT Individual Psychotherapy 09/20/2018 NEX TGEN ([facility] (45 Min) 12:00:00 AM EDT [facility] - 09/20/2018 [place]) 12:00:00 AM EDT Documentation of current 08/29/2018 MED GEN ([facility] medications (procedure) 12:00:00 AM EDT edical Service) Documentation of current 08/29/2018 MED GEN ([facility] medications (procedure) 12:00:00 AM EDT edical Service) Documentation of current 08/29/2018 MED GEN ([facility] medications (procedure) 12:00:00 AM EDT edical Service) Documentation of current 08/29/2018 MED GEN ([place] [facility] (procedure) 12:00:00 AM EDT edical Service) Documentation of current 08/29/2018 MED GEN ([facility] medications (procedure) 12:00:00 AM EDT edical Service) Documentation of current 08/29/2018 MED GEN ([facility] medications (procedure) 12:00:00 AM EDT edical Service) Documentation of current 08/29/2018 MED GEN ([facility] medications (procedure) 12:00:00 AM EDT edical Service) Documentation of current 08/29/2018 MED GEN ([facility] medications (procedure) 12:00:00 AM EDT edical Service) Documentation of current 08/29/2018 MED GEN ([facility] medications (procedure) 12:00:00 AM EDT edical Service) Documentation of current 08/29/2018 MED GEN ([place] medications (procedure) 12:00:00 AM EDT edical Service) Documentation of current 08/29/2018 MED GEN ([facility] medications (procedure) 12:00:00 AM EDT edical Service) Documentation of current 08/29/2018 MED GEN ([facility] medications (procedure) 12:00:00 AM EDT edical Service) Documentation of current 08/29/2018 MED GEN ([facility] medications (procedure) 12:00:00 AM EDT edical Service) Documentation of current 08/29/2018 MED GEN ([facility] medications (procedure) 12:00:00 AM EDT edical Service) Documentation of current 08/29/2018 MED GEN ([place] [facility] (procedure) 12:00:00 AM EDT edical Service) Psychotherapy (30 Mins) W08/24/2018 N EXTGEN ([facility] E&M 12:00:00 AM EDT [facility] 08/24/2018 [place]) 12:00:00 AM EDT OFFICE/OUTPATIENT VISIT, 08/24/2018 NEX TGEN ([facility] EST 12:00:00 AM EDT [facility] 08/24/2018 [place]) 12:00:00 AM EDT Individual Psychotherapy 08/23/2018 NEX TGEN ([facility] (30 Min) 12:00:00 AM EDT [facility] 08/23/2018 [place]) 12:00:00 AM EDT Psychotherapy (30 Mins) W07/27/2018 N EXTGEN ([facility] E&M 12:00:00 AM EDT [facility] 07/27/2018 [place]) 12:00:00 AM EDT OFFICE/OUTPATIENT VISIT, 07/27/2018 NEX TGEN ([facility] EST 12:00:00 AM EDT [facility] 07/27/2018 [place]) 12:00:00 AM EDT Individual Psychotherapy 07/26/2018 NEX TGEN ([facility] (30 Min) 12:00:00 AM EDT [facility] 07/26/2018 [place]) 12:00:00 AM EDT Psychotherapy (30 Mins) W06/22/2018 N EXTGEN ([facility] E&M 12:00:00 AM EDT [facility] 06/22/2018 [place]) 12:00:00 AM EDT OFFICE/OUTPATIENT VISIT, 06/22/2018 NEX TGEN ([facility] EST 12:00:00 AM EDT [facility] 06/22/2018 [place]) 12:00:00 AM EDT Individual Psychotherapy 06/18/2018 NEX TGEN ([facility] (30 Min) 12:00:00 AM EDT [facility] - 06/18/2018 [place]) 12:00:00 AM EDT Individual Psychotherapy 05/07/2018 NEX TGEN ([facility] (30 Min) 12:00:00 AM EST [facility] - 05/07/2018 [place]) 12:00:00 AM EST Documentation of current 03/29/2018 MED GEN ([facility] medications (procedure) 12:00:00 AM EST edical Service) Documentation of current 03/29/2018 MED GEN ([place] [facility] (procedure) 12:00:00 AM EST edical Service) Documentation of current 03/29/2018 MED GEN ([facility] medications (procedure) 12:00:00 AM EST edical Service) Documentation of current 03/29/2018 MED GEN ([place] medications (procedure) 12:00:00 AM EST edical Service) Documentation of current 03/29/2018 MED GEN ([place] medications (procedure) 12:00:00 AM EST edical Service) Documentation of current 03/29/2018 MED GEN ([place] medications (procedure) 12:00:00 AM EST edical Service) Documentation of current 03/29/2018 MED GEN ([facility] medications (procedure) 12:00:00 AM EST edical Service) Documentation of current 03/29/2018 MED GEN ([place] medications (procedure) 12:00:00 AM EST edical Service) Documentation of current 03/29/2018 MED GEN ([facility] medications (procedure) 12:00:00 AM EST edical Service) Documentation of current 03/29/2018 MED GEN ([place] [facility] (procedure) 12:00:00 AM EST edical Service) Documentation of current 03/29/2018 MED GEN ([place] [facility] (procedure) 12:00:00 AM EST edical Service) Documentation of current 03/29/2018 MED GEN ([facility] medications (procedure) 12:00:00 AM EST edical Service) Documentation of current 03/29/2018 MED GEN ([facility] medications (procedure) 12:00:00 AM EST edical Service) Documentation of current 03/29/2018 MED GEN ([place] [facility] (procedure) 12:00:00 AM EST edical Service) Documentation of current 03/29/2018 MED GEN ([facility] medications (procedure) 12:00:00 AM EST edical Service) Documentation of current 03/29/2018 MED GEN ([place] [facility] (procedure) 12:00:00 AM EST edical Service) Documentation of current 03/29/2018 MED GEN ([place] medications (procedure) 12:00:00 AM EST edical Service) Documentation of current 03/29/2018 MED GEN ([facility] medications (procedure) 12:00:00 AM EST edical Service) Documentation of current 03/29/2018 MED GEN ([place] medications (procedure) 12:00:00 AM [facility] edical Service) Documentation of current 03/29/2018 MED GEN ([place] medications (procedure) 12:00:00 AM [facility] edical Service) Documentation of current 03/29/2018 MED GEN ([facility] medications (procedure) 12:00:00 AM [facility] edical Service) Documentation of current 03/29/2018 MED GEN ([facility] medications (procedure) 12:00:00 AM [facility] edical Service) Documentation of current 03/29/2018 MED GEN ([place] medications (procedure) 12:00:00 AM [facility] edical Service) Documentation of current 03/29/2018 MED GEN ([place] [facility] (procedure) 12:00:00 AM [facility] edical Service) Documentation of current 03/29/2018 MED GEN ([place] medications (procedure) 12:00:00 AM EST edical Service) Documentation of current 03/12/2018 MED GEN ([place] medications (procedure) 12:00:00 AM [facility] edical Service) Documentation of current 03/12/2018 MED GEN ([place] [facility] (procedure) 12:00:00 AM EST edical Service) Documentation of current 03/12/2018 MED GEN ([place] [facility] (procedure) 12:00:00 AM EST edical Service) Documentation of current 03/12/2018 MED GEN ([place] medications (procedure) 12:00:00 AM EST edical Service) Documentation of current 03/12/2018 MED GEN ([place] medications (procedure) 12:00:00 AM [facility] edical Service) Documentation of current 03/12/2018 MED GEN ([facility] medications (procedure) 12:00:00 AM EST edical Service) Medication Reconciliation 03/12/2018 ME DGEN ([facility] (procedure) 12:00:00 AM EST Medical Serv ice) Documentation of current 03/12/2018 MED GEN ([place] [facility] (procedure) 12:00:00 AM EST edical Service) Documentation of current 03/12/2018 MED GEN ([facility] medications (procedure) 12:00:00 AM EST edical Service) Documentation of current 03/12/2018 MED GEN ([place] medications (procedure) 12:00:00 AM EST edical Service) Documentation of current 03/12/2018 MED GEN ([place] [facility] (procedure) 12:00:00 AM EST edical Service) Documentation of current 03/12/2018 MED GEN ([facility] medications (procedure) 12:00:00 AM EST edical Service) Documentation of current 03/12/2018 MED GEN ([place] medications (procedure) 12:00:00 AM EST edical Service) Documentation of current 03/12/2018 MED GEN ([place] [facility] (procedure) 12:00:00 AM EST edical Service) Documentation of current 03/12/2018 MED GEN ([place] medications (procedure) 12:00:00 AM EST edical Service) Medication Reconciliation 03/12/2018 [place] DGEN ([place] (procedure) 12:00:[address] [facility] Medical Serv ice) Documentation of current 03/12/2018 MED GEN ([place] medications (procedure) 12:00:00 AM EST edical Service) Documentation of current 03/12/2018 MED GEN ([place] medications (procedure) 12:00:00 AM EST edical Service) Documentation of current 03/12/2018 MED GEN ([place] [facility] (procedure) 12:00:00 AM EST edical Service) Documentation of current 03/12/2018 MED GEN ([place] medications (procedure) 12:00:00 AM EST edical Service) Documentation of current 03/12/2018 MED GEN ([place] [facility] (procedure) 12:00:00 AM EST edical Service) Documentation of current 03/12/2018 MED GEN ([facility] medications (procedure) 12:00:00 AM EST edical Service) Documentation of current 03/12/2018 MED GEN ([place] [facility] (procedure) 12:00:00 AM EST edical Service) Documentation of current 03/12/2018 MED GEN ([facility] medications (procedure) 12:00:00 AM EST edical Service) Medication Reconciliation 03/12/2018 ME DGEN ([place] (procedure) 12:00:00 AM EST Medical Serv ice) Documentation of current 03/12/2018 MED GEN ([place] medications (procedure) 12:00:00 AM EST edical Service) Documentation of current 03/12/2018 MED GEN ([facility] medications (procedure) 12:00:00 AM EST edical Service) Documentation of current 03/12/2018 MED GEN ([place] medications (procedure) 12:00:00 AM EST edical Service) Documentation of current 03/12/2018 MED GEN ([place] medications (procedure) 12:00:00 AM EST edical Service) Documentation of current 03/12/2018 MED GEN ([place] medications (procedure) 12:00:00 AM EST edical Service) Documentation of current 03/12/2018 MED GEN ([facility] medications (procedure) 12:00:00 AM EST edical Service) Documentation of current 03/12/2018 MED GEN ([place] medications (procedure) 12:00:00 AM EST edical Service) Documentation of current 03/12/2018 MED GEN ([place] medications (procedure) 12:00:00 AM EST edical Service) Medication Reconciliation 03/12/2018 [place] DGEN ([facility] (procedure) 12:00:00 AM EST Medical Serv ice) Documentation of current 03/12/2018 MED GEN ([facility] medications (procedure) 12:00:00 AM EST edical Service) Documentation of current 03/12/2018 MED GEN ([place] medications (procedure) 12:00:00 AM EST edical Service) Documentation of current 03/12/2018 MED GEN ([place] medications (procedure) 12:00:00 AM EST edical Service) Documentation of current 03/12/2018 MED GEN ([place] [facility] (procedure) 12:00:00 AM EST edical Service) Documentation of current 03/12/2018 MED GEN ([place] [facility] (procedure) 12:00:00 AM EST edical Service) Documentation of current 03/12/2018 MED GEN ([place] medications (procedure) 12:00:00 AM EST edical Service) Documentation of current 03/12/2018 MED GEN ([facility] medications (procedure) 12:00:00 AM EST edical Service) Documentation of current 03/12/2018 MED GEN ([place] medications (procedure) 12:00:00 AM EST edical Service) Medication Reconciliation 03/12/2018 ME DGEN ([place] (procedure) 12:00:00 AM EST Medical Serv ice) Documentation of current 03/12/2018 MED GEN ([facility] medications (procedure) 12:00:00 AM EST edical Service) Documentation of current 03/12/2018 MED GEN ([place] medications (procedure) 12:00:00 AM [facility] edical Service) Documentation of current 02/03/2018 MED GEN ([place] medications (procedure) 12:00:00 AM EDT edical Service) Documentation of current 02/03/2018 MED GEN ([place] [facility] (procedure) 12:00:00 AM EDT edical Service) Documentation of current 02/03/2018 MED GEN ([place] medications (procedure) 12:00:00 AM EDT edical Service) Documentation of current 02/03/2018 MED GEN ([facility] medications (procedure) 12:00:00 AM EDT edical Service) Documentation of current 02/03/2018 MED GEN ([facility] medications (procedure) 12:00:00 AM EDT edical Service) Documentation of current 02/03/2018 MED GEN ([place] medications (procedure) 12:00:00 AM EDT edical Service) Documentation of current 02/03/2018 MED GEN ([place] medications (procedure) 12:00:00 AM EDT edical Service) Documentation of current 02/03/2018 MED GEN ([place] [facility] (procedure) 12:00:00 AM EDT edical Service) Documentation of current 02/03/2018 MED GEN ([place] medications (procedure) 12:00:00 AM EDT edical Service) Documentation of current 02/03/2018 MED GEN ([place] medications (procedure) 12:00:00 AM EDT edical Service) Documentation of current 02/03/2018 MED GEN ([facility] medications (procedure) 12:00:00 AM EDT edical Service) Documentation of current 02/03/2018 MED GEN ([place] [facility] (procedure) 12:00:00 AM EDT edical Service) Documentation of current 02/03/2018 MED GEN ([place] medications (procedure) 12:00:00 AM EDT edical Service) Documentation of current 02/03/2018 MED GEN ([place] [facility] (procedure) 12:00:00 AM EDT edical Service) Documentation of current 02/03/2018 MED GEN ([place] medications (procedure) 12:00:00 AM EDT edical Service) Documentation of current 02/03/2018 MED GEN ([place] medications (procedure) 12:00:00 AM EDT edical Service) Documentation of current 02/03/2018 MED GEN ([place] [facility] (procedure) 12:00:00 AM EDT edical Service) Documentation of current 02/03/2018 MED GEN ([place] [facility] (procedure) 12:00:00 AM EDT edical Service) Documentation of current 02/03/2018 MED GEN ([facility] (procedure) 12:00:00 AM EDT edical Service) Documentation of current 02/03/2018 MED GEN ([place] [facility] (procedure) 12:00:00 AM EDT edical Service) Documentation of current 02/03/2018 MED GEN ([place] medications (procedure) 12:00:00 AM EDT edical Service) Documentation of current 02/03/2018 MED GEN ([place] medications (procedure) 12:00:00 AM EDT edical Service) Documentation of current 02/03/2018 MED GEN ([facility] medications (procedure) 12:00:00 AM EDT edical Service) Documentation of current 02/03/2018 MED GEN ([place] [facility] (procedure) 12:00:00 AM EDT edical Service) Documentation of current 02/03/2018 MED GEN ([place] medications (procedure) 12:00:00 AM EDT edical Service) Documentation of current 02/03/2018 MED GEN ([place] medications (procedure) 12:00:00 AM EDT edical Service) Documentation of current 02/03/2018 MED GEN ([place] medications (procedure) 12:00:00 AM EDT edical Service) Documentation of current 02/03/2018 MED GEN ([place] [facility] (procedure) 12:00:00 AM EDT edical Service) Documentation of current 02/03/2018 MED GEN ([place] medications (procedure) 12:00:00 AM EDT edical Service) Documentation of current 02/03/2018 MED GEN ([place] medications (procedure) 12:00:00 AM EDT edical Service) Documentation of current 10/06/2017 MED GEN ([facility] medications (procedure) 12:00:00 AM EDT edical Service) Documentation of current 10/06/2017 MED GEN ([place] medications (procedure) 12:00:00 AM EDT edical Service) Documentation of current 10/06/2017 MED GEN ([facility] medications (procedure) 12:00:00 AM EDT edical Service) Documentation of current 10/06/2017 MED GEN ([place] medications (procedure) 12:00:00 AM EDT edical Service) Documentation of current 10/06/2017 MED GEN ([place] [facility] (procedure) 12:00:00 AM EDT edical Service) Documentation of current 10/06/2017 MED GEN ([place] medications (procedure) 12:00:00 AM EDT edical Service) Documentation of current 10/06/2017 MED GEN ([place] medications (procedure) 12:00:00 AM EDT edical Service) Documentation of current 10/06/2017 MED GEN ([place] medications (procedure) 12:00:00 AM EDT edical Service) Documentation of current 10/06/2017 MED GEN ([place] medications (procedure) 12:00:00 AM EDT edical Service) Documentation of current 10/06/2017 MED GEN ([place] medications (procedure) 12:00:00 AM EDT edical Service) Documentation of current 10/06/2017 MED GEN ([place] [facility] (procedure) 12:00:00 AM EDT edical Service) Documentation of current 10/06/2017 MED GEN ([place] medications (procedure) 12:00:00 AM EDT edical Service) Documentation of current 10/06/2017 MED GEN ([place] medications (procedure) 12:00:00 AM EDT edical Service) Documentation of current 10/06/2017 MED GEN ([place] medications (procedure) 12:00:00 AM EDT edical Service) Documentation of current 10/06/2017 MED GEN ([place] [facility] (procedure) 12:00:00 AM EDT edical Service) Documentation of current 10/06/2017 MED GEN ([facility] medications (procedure) 12:00:00 AM EDT edical Service) Documentation of current 10/06/2017 MED GEN ([facility] medications (procedure) 12:00:00 AM EDT edical Service) Documentation of current 10/06/2017 MED GEN ([place] medications (procedure) 12:00:00 AM EDT edical Service) Documentation of current 10/06/2017 MED GEN ([place] [facility] (procedure) 12:00:00 AM EDT edical Service) Documentation of current 10/06/2017 MED GEN ([place] medications (procedure) 12:00:00 AM EDT edical Service) Documentation of current 10/06/2017 MED GEN ([place] medications (procedure) 12:00:00 AM EDT edical Service) Documentation of current 10/06/2017 MED GEN ([place] medications (procedure) 12:00:00 AM EDT edical Service) Documentation of current 10/06/2017 MED GEN ([place] [facility] (procedure) 12:00:00 AM EDT edical Service) Documentation of current 10/06/2017 MED GEN ([place] [facility] (procedure) 12:00:00 AM EDT edical Service) Documentation of current 10/06/2017 MED GEN ([place] medications (procedure) 12:00:00 AM EDT edical Service) Documentation of current 10/06/2017 MED GEN ([facility] (procedure) 12:00:00 AM EDT edical Service) Documentation of current 10/06/2017 MED GEN ([place] [facility] (procedure) 12:00:00 AM EDT edical Service) Documentation of current 10/06/2017 MED GEN ([place] [facility] (procedure) 12:00:00 AM EDT edical Service) Documentation of current 10/06/2017 MED GEN ([facility] (procedure) 12:00:00 AM EDT edical Service) Documentation of current 10/06/2017 MED GEN ([place] [facility] (procedure) 12:00:00 AM EDT edical Service) Documentation of current 09/25/2017 MED GEN ([place] medications (procedure) 12:00:00 AM EDT edical Service) Documentation of current 09/25/2017 MED GEN ([facility] medications (procedure) 12:00:00 AM EDT edical Service) Documentation of current 09/25/2017 MED GEN ([place] [facility] (procedure) 12:00:00 AM EDT edical Service) Documentation of current 09/25/2017 MED GEN ([facility] medications (procedure) 12:00:00 AM EDT edical Service) Documentation of current 09/25/2017 MED GEN ([place] [facility] (procedure) 12:00:00 AM EDT edical Service) Documentation of current 09/25/2017 MED GEN ([facility] medications (procedure) 12:00:00 AM EDT edical Service) Documentation of current 09/25/2017 MED GEN ([facility] medications (procedure) 12:00:00 AM EDT edical Service) Documentation of current 09/25/2017 MED GEN ([place] [facility] (procedure) 12:00:00 AM EDT edical Service) Documentation of current 09/25/2017 MED GEN ([place] [facility] (procedure) 12:00:00 AM EDT edical Service) Documentation of current 09/25/2017 MED GEN ([facility] medications (procedure) 12:00:00 AM EDT edical Service) Documentation of current 09/25/2017 MED GEN ([facility] medications (procedure) 12:00:00 AM EDT edical Service) Documentation of current 09/25/2017 MED GEN ([place] [facility] (procedure) 12:00:00 AM EDT edical Service) Documentation of current 09/25/2017 MED GEN ([place] [facility] (procedure) 12:00:00 AM EDT edical Service) Documentation of current 09/25/2017 MED GEN ([facility] medications (procedure) 12:00:00 AM EDT edical Service) Documentation of current 09/25/2017 MED GEN ([place] medications (procedure) 12:00:00 AM EDT edical Service) Documentation of current 09/25/2017 MED GEN ([facility] medications (procedure) 12:00:00 AM EDT edical Service) Documentation of current 09/25/2017 MED GEN ([place] [facility] (procedure) 12:00:00 AM EDT edical Service) Documentation of current 09/25/2017 MED GEN ([facility] medications (procedure) 12:00:00 AM EDT edical Service) Documentation of current 09/25/2017 MED GEN ([place] [facility] (procedure) 12:00:00 AM EDT edical Service) Documentation of current 09/25/2017 MED GEN ([place] [facility] (procedure) 12:00:00 AM EDT edical Service) Documentation of current 09/25/2017 MED GEN ([place] [facility] (procedure) 12:00:00 AM EDT edical Service) Documentation of current 09/25/2017 MED GEN ([facility] (procedure) 12:00:00 AM EDT edical Service) Documentation of current 09/25/2017 MED GEN ([place] [facility] (procedure) 12:00:00 AM EDT edical Service) Documentation of current 09/25/2017 MED GEN ([facility] medications (procedure) 12:00:00 AM EDT edical Service) Documentation of current 09/25/2017 MED GEN ([place] [facility] (procedure) 12:00:00 AM EDT edical Service) Documentation of current 09/25/2017 MED GEN ([place] [facility] (procedure) 12:00:00 AM EDT edical Service) Documentation of current 09/25/2017 MED GEN ([facility] medications (procedure) 12:00:00 AM EDT edical Service) Documentation of current 09/25/2017 MED GEN ([place] [facility] (procedure) 12:00:00 AM EDT edical Service) Documentation of current 09/25/2017 MED GEN ([facility] medications (procedure) 12:00:00 AM EDT edical Service) Documentation of current 09/25/2017 MED GEN ([facility] medications (procedure) 12:00:00 AM EDT edical Service) Documentation of current 09/25/2017 MED GEN ([place] [facility] (procedure) 12:00:00 AM EDT edical Service) Documentation of current 09/25/2017 MED GEN ([place] [facility] (procedure) 12:00:00 AM EDT edical Service) Documentation of current 09/25/2017 MED GEN ([place] [facility] (procedure) 12:00:00 AM EDT edical Service) Documentation of current 09/25/2017 MED GEN ([facility] (procedure) 12:00:00 AM EDT edical Service) Documentation of current 09/25/2017 MED GEN ([facility] medications (procedure) 12:00:00 AM EDT edical Service) Documentation of current 09/25/2017 MED GEN ([place] [facility] (procedure) 12:00:00 AM EDT edical Service) Documentation of current 09/25/2017 MED GEN ([facility] (procedure) 12:00:00 AM EDT edical Service) Documentation of current 09/25/2017 MED GEN ([place] [facility] (procedure) 12:00:00 AM EDT edical Service) Documentation of current 09/25/2017 MED GEN ([place] [facility] (procedure) 12:00:00 AM EDT edical Service) Documentation of current 09/25/2017 MED GEN ([facility] medications (procedure) 12:00:00 AM EDT edical Service) Documentation of current 09/20/2017 MED GEN ([place] medications (procedure) 12:00:00 AM EDT edical Service) Documentation of current 09/20/2017 MED GEN ([facility] medications (procedure) 12:00:00 AM EDT edical Service) Documentation of current 09/20/2017 MED GEN ([facility] medications (procedure) 12:00:00 AM EDT edical Service) Documentation of current 09/20/2017 MED GEN ([place] [facility] (procedure) 12:00:00 AM EDT edical Service) Documentation of current 09/20/2017 MED GEN ([place] [facility] (procedure) 12:00:00 AM EDT edical Service) Documentation of current 09/20/2017 MED GEN ([facility] medications (procedure) 12:00:00 AM EDT edical Service) Documentation of current 09/20/2017 MED GEN ([place] [facility] (procedure) 12:00:00 AM EDT edical Service) Documentation of current 09/20/2017 MED GEN ([facility] medications (procedure) 12:00:00 AM EDT edical Service) Documentation of current 09/20/2017 MED GEN ([place] [facility] (procedure) 12:00:00 AM EDT edical Service) Documentation of current 09/20/2017 MED GEN ([place] [facility] (procedure) 12:00:00 AM EDT edical Service) Documentation of current 09/20/2017 MED GEN ([place] [facility] (procedure) 12:00:00 AM EDT edical Service) Documentation of current 09/20/2017 MED GEN ([place] [facility] (procedure) 12:00:00 AM EDT edical Service) Documentation of current 09/20/2017 MED GEN ([place] [facility] (procedure) 12:00:00 AM EDT edical Service) Documentation of current 09/20/2017 MED GEN ([facility] (procedure) 12:00:00 AM EDT edical Service) Documentation of current 09/20/2017 MED GEN ([facility] medications (procedure) 12:00:00 AM EDT edical Service) Documentation of current 09/20/2017 MED GEN ([place] [facility] (procedure) 12:00:00 AM EDT edical Service) Documentation of current 09/20/2017 MED GEN ([place] [facility] (procedure) 12:00:00 AM EDT edical Service) Documentation of current 09/20/2017 MED GEN ([place] [facility] (procedure) 12:00:00 AM EDT edical Service) Documentation of current 09/20/2017 MED GEN ([place] [facility] (procedure) 12:00:00 AM EDT edical Service) Documentation of current 09/20/2017 MED GEN ([place] [facility] (procedure) 12:00:00 AM EDT edical Service) Documentation of current 09/20/2017 MED GEN ([place] [facility] (procedure) 12:00:00 AM EDT edical Service) Documentation of current 09/20/2017 MED GEN ([facility] (procedure) 12:00:00 AM EDT edical Service) Documentation of current 09/20/2017 MED GEN ([facility] (procedure) 12:00:00 AM EDT edical Service) Documentation of current 09/20/2017 MED GEN ([place] [facility] (procedure) 12:00:00 AM EDT edical Service) Documentation of current 09/20/2017 MED GEN ([place] [facility] (procedure) 12:00:00 AM EDT edical Service) Documentation of current 09/20/2017 MED GEN ([facility] (procedure) 12:00:00 AM EDT edical Service) Documentation of current 09/20/2017 MED GEN ([facility] (procedure) 12:00:00 AM EDT edical Service) Documentation of current 09/20/2017 MED GEN ([place] [facility] (procedure) 12:00:00 AM EDT edical Service) Documentation of current 09/20/2017 MED GEN ([facility] medications (procedure) 12:00:00 AM EDT edical Service) Documentation of current 09/20/2017 MED GEN ([place] medications (procedure) 12:00:00 AM EDT edical Service) Documentation of current 09/20/2017 MED GEN ([place] [facility] (procedure) 12:00:00 AM EDT edical Service) Documentation of current 09/20/2017 MED GEN ([place] [facility] (procedure) 12:00:00 AM EDT edical Service) Documentation of current 09/20/2017 MED GEN ([place] [facility] (procedure) 12:00:00 AM EDT edical Service) Documentation of current 09/20/2017 MED GEN ([facility] (procedure) 12:00:00 AM EDT edical Service) Documentation of current 09/20/2017 MED GEN ([facility] medications (procedure) 12:00:00 AM EDT edical Service) Documentation of current 09/20/2017 MED GEN ([place] [facility] (procedure) 12:00:00 AM EDT edical Service) Documentation of current 09/20/2017 MED GEN ([facility] medications (procedure) 12:00:00 AM EDT edical Service) Documentation of current 09/20/2017 MED GEN ([facility] medications (procedure) 12:00:00 AM EDT edical Service) Documentation of current 09/20/2017 MED GEN ([facility] medications (procedure) 12:00:00 AM EDT edical Service) Documentation of current 09/20/2017 MED GEN ([facility] medications (procedure) 12:00:00 AM EDT edical Service) Documentation of current 09/20/2017 MED GEN ([facility] medications (procedure) 12:00:00 AM EDT edical Service) Documentation of current 09/20/2017 MED GEN ([place] [facility] (procedure) 12:00:00 AM EDT edical Service) Documentation of current 09/20/2017 MED GEN ([place] [facility] (procedure) 12:00:00 AM EDT edical Service) Documentation of current 09/20/2017 MED GEN ([facility] (procedure) 12:00:00 AM EDT edical Service) Documentation of current 09/20/2017 MED GEN ([facility] (procedure) 12:00:00 AM EDT edical Service) Documentation of current 09/20/2017 MED GEN ([place] [facility] (procedure) 12:00:00 AM EDT edical Service) Documentation of current 09/20/2017 MED GEN ([place] [facility] (procedure) 12:00:00 AM EDT edical Service) Documentation of current 09/20/2017 MED GEN ([place] [facility] (procedure) 12:00:00 AM EDT edical Service) Documentation of current 09/20/2017 MED GEN ([facility] (procedure) 12:00:00 AM EDT edical Service) Documentation of current 09/20/2017 MED GEN ([facility] (procedure) 12:00:00 AM EDT edical Service) Documentation of current 09/20/2017 MED GEN ([facility] medications (procedure) 12:00:00 AM EDT edical Service) Documentation of current 09/20/2017 MED GEN ([place] [facility] (procedure) 12:00:00 AM EDT edical Service) Documentation of current 09/20/2017 MED GEN ([facility] (procedure) 12:00:00 AM EDT edical Service) Documentation of current 09/20/2017 MED GEN ([facility] (procedure) 12:00:00 AM EDT edical Service) Documentation of current 09/20/2017 MED GEN ([facility] (procedure) 12:00:00 AM EDT edical Service) Documentation of current 09/20/2017 MED GEN ([facility] (procedure) 12:00:00 AM EDT edical Service) Documentation of current 09/20/2017 MED GEN ([place] [facility] (procedure) 12:00:00 AM EDT edical Service) Documentation of current 09/20/2017 MED GEN ([facility] (procedure) 12:00:00 AM EDT edical Service) Documentation of current 09/20/2017 MED GEN ([facility] (procedure) 12:00:00 AM EDT edical Service) Documentation of current 09/20/2017 MED GEN ([facility] (procedure) 12:00:00 AM EDT edical Service) Documentation of current 09/20/2017 MED GEN ([place] [facility] (procedure) 12:00:00 AM EDT edical Service) Documentation of current 09/20/2017 MED GEN ([facility] (procedure) 12:00:00 AM EDT edical Service) Documentation of current 09/20/2017 MED GEN ([facility] (procedure) 12:00:00 AM EDT edical Service) Documentation of current 09/20/2017 MED GEN ([place] [facility] (procedure) 12:00:00 AM EDT edical Service) Documentation of current 09/20/2017 MED GEN ([place] [facility] (procedure) 12:00:00 AM EDT edical Service) Documentation of current 08/31/2017 MED GEN ([facility] (procedure) 12:00:00 AM EDT edical Service) Documentation of current 08/31/2017 MED GEN ([place] [facility] (procedure) 12:00:00 AM EDT edical Service) Documentation of current 08/31/2017 MED GEN ([place] [facility] (procedure) 12:00:00 AM EDT edical Service) Documentation of current 08/31/2017 MED GEN ([place] [facility] (procedure) 12:00:00 AM EDT edical Service) Documentation of current 08/31/2017 MED GEN ([facility] (procedure) 12:00:00 AM EDT edical Service) Documentation of current 08/31/2017 MED GEN ([place] [facility] (procedure) 12:00:00 AM EDT edical Service) Documentation of current 08/31/2017 MED GEN ([place] [facility] (procedure) 12:00:00 AM EDT edical Service) Documentation of current 08/31/2017 MED GEN ([facility] (procedure) 12:00:00 AM EDT edical Service) Documentation of current 08/31/2017 MED GEN ([facility] (procedure) 12:00:00 AM EDT edical Service) Documentation of current 08/31/2017 MED GEN ([facility] (procedure) 12:00:00 AM EDT edical Service) Documentation of current 05/23/2017 MED GEN ([place] [facility] (procedure) 12:00:00 AM EST edical Service) Documentation of current 05/23/2017 MED GEN ([place] [facility] (procedure) 12:00:00 AM EST edical Service) Documentation of current 05/23/2017 MED GEN ([place] [facility] (procedure) 12:00:00 AM EST edical Service) Documentation of current 05/23/2017 MED GEN ([facility] (procedure) 12:00:00 AM EST edical Service) Documentation of current 05/23/2017 MED GEN ([place] [facility] (procedure) 12:00:00 AM EST edical Service) Documentation of current 05/23/2017 MED GEN ([place] [facility] (procedure) 12:00:00 AM EST edical Service) Documentation of current 05/23/2017 MED GEN ([facility] (procedure) 12:00:00 AM EST edical Service) Documentation of current 05/23/2017 MED GEN ([facility] (procedure) 12:00:00 AM EST edical Service) Documentation of current 05/23/2017 MED GEN ([facility] (procedure) 12:00:00 AM EST edical Service) Documentation of current 05/23/2017 MED GEN ([place] [facility] (procedure) 12:00:00 AM EST edical Service) Documentation of current 05/23/2017 MED GEN ([facility] (procedure) 12:00:00 AM EST edical Service) Documentation of current 05/23/2017 MED GEN ([place] [facility] (procedure) 12:00:00 AM EST edical Service) Documentation of current 05/23/2017 MED GEN ([place] [facility] (procedure) 12:00:00 AM EST edical Service) Documentation of current 05/23/2017 MED GEN ([place] [facility] (procedure) 12:00:00 AM EST edical Service) Documentation of current 05/23/2017 MED GEN ([place] [facility] (procedure) 12:00:00 AM EST edical Service) Documentation of current 05/23/2017 MED GEN ([place] [facility] (procedure) 12:00:00 AM EST edical Service) Documentation of current 05/23/2017 MED GEN ([facility] (procedure) 12:00:00 AM EST edical Service) Documentation of current 05/23/2017 MED GEN ([place] [facility] (procedure) 12:00:00 AM EST edical Service) Documentation of current 05/23/2017 MED GEN ([place] [facility] (procedure) 12:00:00 AM EST edical Service) Documentation of current 05/23/2017 MED GEN ([facility] (procedure) 12:00:00 AM EST edical Service) Documentation of current 05/18/2017 MED GEN ([facility] (procedure) 12:00:00 AM EST edical Service) Documentation of current 05/18/2017 MED GEN ([facility] (procedure) 12:00:00 AM EST edical Service) Documentation of current 05/18/2017 MED GEN ([facility] (procedure) 12:00:00 AM EST edical Service) Documentation of current 05/18/2017 MED GEN ([place] [facility] (procedure) 12:00:00 AM EST edical Service) Documentation of current 05/18/2017 MED GEN ([facility] (procedure) 12:00:00 AM EST edical Service) Documentation of current 05/18/2017 MED GEN ([place] [facility] (procedure) 12:00:00 AM EST edical Service) Documentation of current 05/18/2017 MED GEN ([place] [facility] (procedure) 12:00:00 AM EST edical Service) Documentation of current 05/18/2017 MED GEN ([facility] (procedure) 12:00:00 AM EST edical Service) Documentation of current 05/18/2017 MED GEN ([place] [facility] (procedure) 12:00:00 AM EST edical Service) Documentation of current 05/18/2017 MED GEN ([place] [facility] (procedure) 12:00:00 AM EST edical Service) Documentation of current 01/27/2017 MED GEN ([facility] (procedure) 12:00:00 AM EDT edical Service) Documentation of current 01/27/2017 MED GEN ([place] [facility] (procedure) 12:00:00 AM EDT edical Service) Documentation of current 01/27/2017 MED GEN ([facility] (procedure) 12:00:00 AM EDT edical Service) Documentation of current 01/27/2017 MED GEN ([facility] (procedure) 12:00:00 AM EDT edical Service) Documentation of current 01/27/2017 MED GEN ([place] [facility] (procedure) 12:00:00 AM EDT edical Service) Documentation of current 01/27/2017 MED GEN ([facility] (procedure) 12:00:00 AM EDT edical Service) Documentation of current 01/27/2017 MED GEN ([place] [facility] (procedure) 12:00:00 AM EDT edical Service) Documentation of current 01/27/2017 MED GEN ([place] [facility] (procedure) 12:00:00 AM EDT edical Service) Documentation of current 01/27/2017 MED GEN ([place] [facility] (procedure) 12:00:00 AM EDT edical Service) Documentation of current 01/27/2017 MED GEN ([place] [facility] (procedure) 12:00:00 AM EDT edical Service) Documentation of current 01/27/2017 MED GEN ([place] [facility] (procedure) 12:00:00 AM EDT edical Service) Documentation of current 01/27/2017 MED GEN ([place] [facility] (procedure) 12:00:00 AM EDT edical Service) Documentation of current 01/27/2017 MED GEN ([place] [facility] (procedure) 12:00:00 AM EDT edical Service) Documentation of current 01/27/2017 MED GEN ([facility] (procedure) 12:00:00 AM EDT edical Service) Documentation of current 01/27/2017 MED GEN ([facility] (procedure) 12:00:00 AM EDT edical Service) Documentation of current 01/27/2017 MED GEN ([facility] medications (procedure) 12:00:00 AM EDT edical Service) Documentation of current 01/27/2017 MED GEN ([facility] (procedure) 12:00:00 AM EDT edical Service) Documentation of current 01/27/2017 MED GEN ([place] [facility] (procedure) 12:00:00 AM EDT edical Service) Documentation of current 01/27/2017 MED GEN ([place] [facility] (procedure) 12:00:00 AM EDT edical Service) Documentation of current 01/27/2017 MED GEN ([facility] (procedure) 12:00:00 AM EDT edical Service) Documentation of current 10/24/2016 MED GEN ([place] [facility] (procedure) 12:00:00 AM EDT edical Service) Documentation of current 10/24/2016 MED GEN ([place] [facility] (procedure) 12:00:00 AM EDT edical Service) Documentation of current 10/24/2016 MED GEN ([facility] (procedure) 12:00:00 AM EDT edical Service) Documentation of current 10/24/2016 MED GEN ([facility] (procedure) 12:00:00 AM EDT edical Service) Documentation of current 10/24/2016 MED GEN ([place] [facility] (procedure) 12:00:00 AM EDT edical Service) Documentation of current 10/24/2016 MED GEN ([facility] (procedure) 12:00:00 AM EDT edical Service) Documentation of current 10/24/2016 MED GEN ([place] [facility] (procedure) 12:00:00 AM EDT edical Service) Documentation of current 10/24/2016 MED GEN ([place] [facility] (procedure) 12:00:00 AM EDT edical Service) Documentation of current 10/24/2016 MED GEN ([facility] (procedure) 12:00:00 AM EDT edical Service) Documentation of current 10/24/2016 MED GEN ([facility] (procedure) 12:00:00 AM EDT edical Service) Documentation of current 10/24/2016 MED GEN ([facility] (procedure) 12:00:00 AM EDT edical Service) Documentation of current 10/24/2016 MED GEN ([place] [facility] (procedure) 12:00:00 AM EDT edical Service) Documentation of current 10/24/2016 MED GEN ([facility] (procedure) 12:00:00 AM EDT edical Service) Documentation of current 10/24/2016 MED GEN ([facility] (procedure) 12:00:00 AM EDT edical Service) Documentation of current 10/24/2016 MED GEN ([place] [facility] (procedure) 12:00:00 AM EDT edical Service) Documentation of current 10/24/2016 MED GEN ([place] [facility] (procedure) 12:00:00 AM EDT edical Service) Documentation of current 10/24/2016 MED GEN ([facility] (procedure) 12:00:00 AM EDT edical Service) Documentation of current 10/24/2016 MED GEN ([place] [facility] (procedure) 12:00:00 AM EDT edical Service) Documentation of current 10/24/2016 MED GEN ([facility] (procedure) 12:00:00 AM EDT edical Service) Documentation of current 10/24/2016 MED GEN ([place] [facility] (procedure) 12:00:00 AM EDT edical Service) Documentation of current 10/24/2016 MED GEN ([place] [facility] (procedure) 12:00:00 AM EDT edical Service) Documentation of current 10/24/2016 MED GEN ([place] [facility] (procedure) 12:00:00 AM EDT edical Service) Documentation of current 10/24/2016 MED GEN ([place] [facility] (procedure) 12:00:00 AM EDT edical Service) Documentation of current 10/24/2016 MED GEN ([place] [facility] (procedure) 12:00:00 AM EDT edical Service) Documentation of current 10/24/2016 MED GEN ([facility] (procedure) 12:00:00 AM EDT edical Service) Documentation of current 10/24/2016 MED GEN ([facility] (procedure) 12:00:00 AM EDT edical Service) Documentation of current 10/24/2016 MED GEN ([place] [facility] (procedure) 12:00:00 AM EDT edical Service) Documentation of current 10/24/2016 MED GEN ([facility] (procedure) 12:00:00 AM EDT edical Service) Documentation of current 10/24/2016 MED GEN ([place] [facility] (procedure) 12:00:00 AM EDT edical Service) Documentation of current 10/24/2016 MED GEN ([place] [facility] (procedure) 12:00:00 AM EDT edical Service) Documentation of current 09/20/2016 MED GEN ([place] [facility] (procedure) 12:00:00 AM EDT edical Service) Documentation of current 09/20/2016 MED GEN ([facility] (procedure) 12:00:00 AM EDT edical Service) Documentation of current 09/20/2016 MED GEN ([facility] medications (procedure) 12:00:00 AM EDT edical Service) Documentation of current 09/20/2016 MED GEN ([place] [facility] (procedure) 12:00:00 AM EDT edical Service) Documentation of current 09/20/2016 MED GEN ([facility] medications (procedure) 12:00:00 AM EDT edical Service) Documentation of current 09/20/2016 MED GEN ([facility] medications (procedure) 12:00:00 AM EDT edical Service) Documentation of current 09/20/2016 MED GEN ([place] [facility] (procedure) 12:00:00 AM EDT edical Service) Documentation of current 09/20/2016 MED GEN ([place] [facility] (procedure) 12:00:00 AM EDT edical Service) Documentation of current 09/20/2016 MED GEN ([place] [facility] (procedure) 12:00:00 AM EDT edical Service) Documentation of current 09/20/2016 MED GEN ([place] [facility] (procedure) 12:00:00 AM EDT edical Service) Documentation of current 09/20/2016 MED GEN ([facility] (procedure) 12:00:00 AM EDT edical Service) Documentation of current 09/20/2016 MED GEN ([place] [facility] (procedure) 12:00:00 AM EDT edical Service) Documentation of current 09/20/2016 MED GEN ([facility] medications (procedure) 12:00:00 AM EDT edical Service) Documentation of current 09/20/2016 MED GEN ([facility] medications (procedure) 12:00:00 AM EDT edical Service) Documentation of current 09/20/2016 MED GEN ([place] [facility] (procedure) 12:00:00 AM EDT edical Service) Documentation of current 09/20/2016 MED GEN ([facility] medications (procedure) 12:00:00 AM EDT edical Service) Documentation of current 09/20/2016 MED GEN ([place] [facility] (procedure) 12:00:00 AM EDT edical Service) Documentation of current 09/20/2016 MED GEN ([place] [facility] (procedure) 12:00:00 AM EDT edical Service) Documentation of current 09/20/2016 MED GEN ([place] [facility] (procedure) 12:00:00 AM EDT edical Service) Documentation of current 09/20/2016 MED GEN ([place] [facility] (procedure) 12:00:00 AM EDT edical Service) Documentation of current 09/20/2016 MED GEN ([facility] (procedure) 12:00:00 AM EDT edical Service) Documentation of current 09/20/2016 MED GEN ([facility] medications (procedure) 12:00:00 AM EDT edical Service) Documentation of current 09/20/2016 MED GEN ([place] [facility] (procedure) 12:00:00 AM EDT edical Service) Documentation of current 09/20/2016 MED GEN ([facility] (procedure) 12:00:00 AM EDT edical Service) Documentation of current 09/20/2016 MED GEN ([facility] medications (procedure) 12:00:00 AM EDT edical Service) Documentation of current 09/20/2016 MED GEN ([facility] medications (procedure) 12:00:00 AM EDT edical Service) Documentation of current 09/20/2016 MED GEN ([place] [facility] (procedure) 12:00:00 AM EDT edical Service) Documentation of current 09/20/2016 MED GEN ([place] [facility] (procedure) 12:00:00 AM EDT edical Service) Documentation of current 09/20/2016 MED GEN ([place] [facility] (procedure) 12:00:00 AM EDT edical Service) Documentation of current 09/20/2016 MED GEN ([place] [facility] (procedure) 12:00:00 AM EDT edical Service) Documentation of current 03/24/2016 MED GEN ([facility] medications (procedure) 12:00:00 AM EST edical Service) Medication Reconciliation 03/24/2016 ME DGEN ([facility] (procedure) 12:00:00 AM EST Medical Serv ice) Documentation of current 03/24/2016 MED GEN ([facility] medications (procedure) 12:00:00 AM EST edical Service) Documentation of current 03/24/2016 MED GEN ([place] [facility] (procedure) 12:00:00 AM EST edical Service) Medication Reconciliation 03/24/2016 ME DGEN ([place] (procedure) 12:00:00 AM EST Medical Serv ice) Documentation of current 03/24/2016 MED GEN ([facility] (procedure) 12:00:00 AM EST edical Service) Documentation of current 03/24/2016 MED GEN ([facility] medications (procedure) 12:00:00 AM EST edical Service) Medication Reconciliation 03/24/2016 ME DGEN ([place] (procedure) 12:00:00 AM EST Medical Serv ice) Documentation of current 03/24/2016 MED GEN ([place] [facility] (procedure) 12:00:00 AM EST edical Service) Documentation of current 03/24/2016 MED GEN ([place] [facility] (procedure) 12:00:00 AM EST edical Service) Medication Reconciliation 03/24/2016 ME DGEN ([place] (procedure) 12:00:00 AM EST Medical Serv ice) Documentation of current 03/24/2016 MED GEN ([place] [facility] (procedure) 12:00:00 AM EST edical Service) Documentation of current 03/24/2016 MED GEN ([place] [facility] (procedure) 12:00:00 AM EST edical Service) Medication Reconciliation 03/24/2016 ME DGEN ([facility] (procedure) 12:00:00 AM [facility] Serv ice) Documentation of current 03/24/2016 MED GEN ([facility] medications (procedure) 12:00:00 AM [facility] edical Service) Documentation of current 02/10/2016 MED GEN ([place] [facility] (procedure) 12:00:00 AM [facility] edical Service) Documentation of current 02/10/2016 MED GEN ([facility] medications (procedure) 12:00:00 AM [facility] edical Service) Documentation of current 02/10/2016 MED GEN ([facility] medications (procedure) 12:00:00 AM [facility] edical Service) Documentation of current 02/10/2016 MED GEN ([place] [facility] (procedure) 12:00:00 AM [facility] edical Service) Documentation of current 02/10/2016 MED GEN ([place] [facility] (procedure) 12:00:00 AM [facility] edical Service) Documentation of current 02/10/2016 MED GEN ([facility] medications (procedure) 12:00:00 AM [facility] edical Service) Documentation of current 02/10/2016 MED GEN ([facility] medications (procedure) 12:00:00 AM [facility] edical Service) Documentation of current 02/10/2016 MED GEN ([place] [facility] (procedure) 12:00:00 AM EST edical Service) Documentation of current 02/10/2016 MED GEN ([facility] medications (procedure) 12:00:00 AM [facility] edical Service) Documentation of current 02/10/2016 MED GEN ([place] [facility] (procedure) 12:00:00 AM EST edical Service) Documentation of current 11/05/2015 MED GEN ([facility] medications (procedure) 12:00:00 AM EDT edical Service) Documentation of current 11/05/2015 MED GEN ([facility] medications (procedure) 12:00:00 AM EDT edical Service) Documentation of current 11/05/2015 MED GEN [facility] 11/05/2015 MED GEN ([place] [facility] (procedure) 12:00:00 AM EDT edical Service) Documentation of current 11/05/2015 MED GEN ([facility] medications (procedure) 12:00:00 AM EDT edical Service) Documentation of current 11/05/2015 MED GEN ([facility] medications (procedure) 12:00:00 AM EDT M edical Service) Documentation of current 11/05/2015 MED GEN ([place] [facility] (procedure) 12:00:00 AM EDT M edical Service) Documentation of current 11/05/2015 MED GEN ([place] [facility] (procedure) 12:00:00 AM EDT M edical Service) Documentation of current 11/05/2015 MED GEN ([facility] (procedure) 12:00:00 AM EDT M edical Service) Documentation of current 11/05/2015 MED GEN ([facility] medications (procedure) 12:00:00 AM EDT M edical Service) Documentation of current 09/05/2015 MED GEN ([facility] medications (procedure) 12:00:00 AM EDT M edical Service) Documentation of current 09/05/2015 MED GEN ([place] medications (procedure) 12:00:00 AM EDT M edical Service) Documentation of current 09/05/2015 MED GEN ([place] medications (procedure) 12:00:00 AM EDT edical Service) Documentation of current 09/05/2015 MED GEN ([place] medications (procedure) 12:00:00 AM EDT edical Service) Documentation of current 09/05/2015 MED GEN ([place] medications (procedure) 12:00:00 AM EDT M edical Service) Results ID Date Data Source Liver 12/22/2019 06:20:00 AM EDT [facility] Profile.[id number] Name Value Range Interpretation Description Data Sup porting Code Source(s) Document(s ) Alanine 7-50 <content [facility] aminotransferase styleCode="Bold"> [facility] [Enzymatic Alanine Medical activity/volume] Aminotransferase Center in Serum or Plasma (ALT) </content>35 IU/L<content styleCode="Italic s"> (7-50 IU/L)</content> Aspartate 17-59 <content [facility] aminotransferase styleCode="Bold"> [facility] [Enzymatic Aspartate Medical activity/volume] Aminotransferase Center in Serum or Plasma (AST) </content>33 IU/L<content styleCode="Italic s"> (17-59 IU/L)</content> Alkaline 38-126 <content [facility] phosphatase styleCode="Bold"> True [Enzymatic Alkaline Medical activity/volume] Phosphatase (ALP) Cente r in Serum or Plasma </content>100 IU/L<content styleCode="Italic s"> (38-126 IU/L)</content> Albumin 3.5-5.0 Below low <content [facility] [Mass/volume] in normal styleCode="Bold"> [facility] hs Serum or Plasma Albumin Medical </content>3.2 Center G/DL L<content styleCode="Italic s"> (3.5-5.0 G/DL)</content> Bilirubin.total 0.2-1.3 <content [facility] [Mass/volume] in styleCode="Bold"> [facility] hs Serum or Plasma Bilirubin Total Medical </content>0.5 Center MG/DL<content styleCode="Italic s"> (0.2-1.3 MG/DL)</content> ID Date Data Source HematologyRou.[id number] 12/22/2019 06:20:00 AM EDT [facility] 0400 Name Value Range Interpretation Description Data Sup porting Code Source(s) Document(s ) Erythrocytes 4.4-5.9 <content [facility] [#/volume] in styleCode="Bold True Blood by ">Red Blood Medical Automated count Cell Count Center </content>4.50 MCUMM<content styleCode="Ital ics"> (4.4-5.9 MCUMM)</content > Leukocytes 4.4-11.0 <content [facility] [#/volume] in styleCode="Bold True Blood by ">White Blood Medical Automated count Cell Count Center </content>5.44 KCUMM<content styleCode="Ital ics"> (4.4-11.0 KCUMM)</content > Hematocrit 41.0-53. Below low normal <content [facility] [Volume 0 styleCode="Bold True Fraction] of ">Hematocrit Medical Blood by </content>39.6 Center Automated count % L<content styleCode="Ital ics"> (41.0-53.0 %)</content> Hemoglobin 13.5-17. Below low normal <content [facility] [Mass/volume] in 5 styleCode="Bold True Blood ">Hemoglobin Medical </content>13.1 Center G/DL L<content styleCode="Ital ics"> (13.5-17.5 G/DL)</content> Erythrocyte 11.5-14. <content [facility] distribution 5 styleCode="Bold True width [Ratio] by ">Red Cell Medical Automated count Distribution Center Width </content>13.3 %<content styleCode="Ital ics"> (11.5-14.5 %)</content> Erythrocyte mean 26.0-34. <content [facility] corpuscular 0 styleCode="Bold True hemoglobin ">Mean Medical [Entitic mass] Corposcular Center by Automated Hemoglobin count </content>29.1 PG<content styleCode="Ital ics"> (26.0-34.0 PG)</content> Erythrocyte mean 80.0-100 <content [facility] corpuscular .0 styleCode="Bold True volume [Entitic ">Mean Medical volume] by Corpuscular Center Automated count Volume </content>88.0 FL<content styleCode="Ital ics"> (80.0-100.0 FL)</content> Erythrocyte mean 32.0-37. <content [facility] corpuscular 0 styleCode="Bold True hemoglobin ">Mean Corpus. Medical concentration Hgb Center [Mass/volume] by Concentration Automated count (MCHC) </content>33.1 G/DL<content styleCode="Ital ics"> (32.0-37.0 G/DL)</content> Platelets 130-400 Below low normal <content [facility] [#/volume] in styleCode="Bold True Blood by ">Platelet Medical Automated count Count Center </content>106 KCUMM L<content styleCode="Ital ics"> (130-400 KCUMM)</content > Platelet mean 8.0-11.0 Above high <content [facility] volume [Entitic normal styleCode="Bold True volume] in Blood ">Mean Platelet Medical by Automated Volume Center count </content>11.4 FL H<content styleCode="Ital ics"> (8.0-11.0 FL)</content> Neutrophils 36-66 Above high <content [facility] [#/volume] in normal styleCode="Bold True Blood by ">Neutrophil Medical Automated count </content>72.4 Center % H<content styleCode="Ital ics"> (36-66 %)</content> Monocytes 3.0-10.0 Above high <content [facility] [#/volume] in normal styleCode="Bold True Blood by ">Monocyte Medical Automated count </content>12.7 Center % H<content styleCode="Ital ics"> (3.0-10.0 %)</content> UNK 1.0-4.8 Below low normal <content [facility] styleCode="Bold True ">Lymphocyte Medical Count Center </content>0.43 KCUMM L<content styleCode="Ital ics"> (1.0-4.8 KCUMM)</content > Lymphocytes 24.0-44. Below low normal <content [facility] [#/volume] in 0 styleCode="Bold True Blood by ">Lymphocyte Medical Automated count </content>7.9 % Center L<content styleCode="Ital ics"> (24.0-44.0 %)</content> UNK 1.6-7.3 <content [facility] styleCode="Bold True ">Neutrophil Medical Count Center </content>3.94 KCUMM<content styleCode="Ital ics"> (1.6-7.3 KCUMM)</content > Basophils 0.0-1.0 <content [facility] [#/volume] in styleCode="Bold True Blood by ">Basophil Medical Automated count </content>0.4 Center %<content styleCode="Ital ics"> (0.0-1.0 %)</content> UNK 0.2-0.9 <content [facility] styleCode="Bold True ">Monocyte Medical Count Center </content>0.69 KCUMM<content styleCode="Ital ics"> (0.2-0.9 KCUMM)</content > Eosinophils 0-5.0 Above high <content [facility] [#/volume] in normal styleCode="Bold True Blood by ">Eosinophil Medical Automated count </content>6.4 % Center H<content styleCode="Ital ics"> (0-5.0 %)</content> UNK 0.0-0.6 <content [facility] styleCode="Bold True ">Eosinophil Medical Count Center </content>0.35 KCUMM<content styleCode="Ital ics"> (0.0-0.6 KCUMM)</content > UNK 0.0 <content [facility] styleCode="Bold True ">Nucleated Red Medical Blood Cell Center Count </content>0.00 KCUMM<content styleCode="Ital ics"> (0.0 KCUMM)</content > UNK 0 <content [facility] styleCode="Bold True ">Nucleated Red Medical Blood Cell Center </content>0.0 /100<content styleCode="Ital ics"> (0 /100)</content> UNK 0.0-0.3 <content [facility] styleCode="Bold True ">Basophil Medical Count Center </content>0.02 KCUMM<content styleCode="Ital ics"> (0.0-0.3 KCUMM)</content > UNK 0-0.1 <content [facility] styleCode="Bold True ">Immature Medical Granulocyte Center Count </content>0.01 KCUMM<content styleCode="Ital ics"> (0-0.1 KCUMM)</content > UNK < 1 <content [facility] styleCode="Bold True ">Immature Medical Granulocyte Center Ratio </content>0.2 %<content styleCode="Ital ics"> (< 1 %)</content> ID Date Data Source GFR(Creatinine).[id number] 12/22/2019 06:20:00 AM EDT [facility] 0-0400 Name Value Range Interpretation Code Description Data Libra rce(s) Supporting Document(s ) UNK > 60 <content [facility] styleCode="Bold"> Medical Cent er EGFR </content>91 GFR<content styleCode="Italic s"> (> 60 GFR)</content> ID Date Data Source Coagulation 12/22/2019 06:20:00 AM [facility] Rout.[id number] EDT Name Value Range Interpretation Description Data Sup porting Code Source(s) Document(s ) UNK 9.0-13.0 Above high normal <content [facility] styleCode="Bold" True >Protime Medical </content>13.5 Center SEC H<content styleCode="Itali cs"> (9.0-13.0 SEC)</content> INR in 0.80-1.2 Above high normal <content [facility] Platelet poor 0 styleCode="Bold" True plasma by >INR Medical Coagulation </content>1.22 # Center assay H<content styleCode="Itali cs"> (0.80-1.20 #)</content> aPTT in 25.1-36. <content [facility] Platelet poor 5 styleCode="Bold" True plasma by >Partial Medical Coagulation Thromboplastin Center assay Time </content>33.0 SEC<content styleCode="Itali cs"> (25.1-36.5 SEC)</content> ID Date Data Source CHMROUTINECCDA.[id number] 12/22/2019 06:20:00 AM EDT [facility] -0400 Name Value Range Interpretation Description Data Sup porting Code Source(s) Document(s ) UNK 2.3-3.5 <content [facility] styleCode="Beverly True d">Globulin Medical </content>2.9 Center G/DL<content styleCode="Suzi lics"> (2.3-3.5 G/DL)</content > UNK >= 1.0 <content [facility] styleCode="Beverly True d">AG Ratio Medical </content>1.1 Center <content styleCode="Suzi lics"> (>= 1.0 )</content> Magnesium 1.6-2.3 <content [facility] [Mass/volume] styleCode="Beverly True in Serum or d">Magnesium Medical Plasma </content>2.0 Center MG/DL<content styleCode="Suzi lics"> (1.6-2.3 MG/DL)</conten t> Phosphate 2.5-4.5 <content [facility] [Mass/volume] styleCode="Beverly Biswas in Serum or d">Phosphorus Medical Plasma </content>3.7 Center MG/DL<content styleCode="Suzi lics"> (2.5-4.5 MG/DL)</conten t> Protein 6.3-8.2 Below low normal <content [facility] [Mass/volume] styleCode="Beverly Jamess in Serum or d">Total Medical Plasma Protein Center </content>6.1 G/DL L<content styleCode="Suzi lics"> (6.3-8.2 G/DL)</content > ID Date Data Source [facility].[id number] 12/22/2019 06:20:00 AM EDT [facility] Center Name Value Range Interpretation Description Data Sup porting Code Source(s) Document(s ) Sodium 137-145 Below low <content [facility] [Moles/volume] in normal styleCode="Bold"> [facility] Serum or Plasma Sodium Medical </content>136 Center MEQ/L L<content styleCode="Italic s"> (137-145 MEQ/L)</content> Chloride 98-107 <content [facility] [Moles/volume] in styleCode="Bold"> [facility] Serum or Plasma Chloride Medical </content>105 Center MEQ/L<content styleCode="Italic s"> (98-107 MEQ/L)</content> Carbon dioxide, 22-30 <content [facility] total styleCode="Bold"> True [Moles/volume] in Carbon Dioxide Medical Serum or Plasma </content>25 Center MEQ/L<content styleCode="Italic s"> (22-30 MEQ/L)</content> Potassium 3.5-5.3 <content [facility] [Moles/volume] in styleCode="Bold"> [facility] Serum or Plasma Potassium Medical </content>4.4 Center MEQ/L<content styleCode="Italic s"> (3.5-5.3 MEQ/L)</content> UNK 9-20 <content [facility] styleCode="Bold"> True BUN </content>18 Medical MG/DL<content Center styleCode="Italic s"> (9-20 MG/DL)</content> Creatinine 0.5-1.3 <content [facility] [Mass/volume] in styleCode="Bold"> [facility] hs Serum or Plasma Creatinine Medical </content>0.9 Center MG/DL<content styleCode="Italic s"> (0.5-1.3 MG/DL)</content> Glucose 74-106 <content [facility] [Mass/volume] in styleCode="Bold"> [facility] hs Serum or Plasma Glucose Medical </content>89 Center MG/DL<content styleCode="Italic s"> (74-106 MG/DL)</content> Aspartate 17-59 <content [facility] aminotransferase styleCode="Bold"> [facility] hs [Enzymatic Aspartate Medical activity/volume] Aminotransferase Center in Serum or Plasma (AST) </content>33 IU/L<content styleCode="Italic s"> (17-59 IU/L)</content> Calcium 8.4-10. <content [facility] [Mass/volume] in 2 styleCode="Bold"> [facility] hs Serum or Plasma Calcium Medical </content>8.5 Center MG/DL<content styleCode="Italic s"> (8.4-10.2 MG/DL)</content> UNK > 60 <content [facility] styleCode="Bold"> True EGFR </content>91 Medical GFR<content Center styleCode="Italic s"> (> 60 GFR)</content> Alkaline 38-126 <content [facility] phosphatase styleCode="Bold"> True [Enzymatic Alkaline Medical activity/volume] Phosphatase (ALP) Cente r in Serum or Plasma </content>100 IU/L<content styleCode="Italic s"> (38-126 IU/L)</content> Bilirubin.total 0.2-1.3 <content [facility] [Mass/volume] in styleCode="Bold"> [facility] hs Serum or Plasma Bilirubin Total Medical </content>0.5 Center MG/DL<content styleCode="Italic s"> (0.2-1.3 MG/DL)</content> Alanine 7-50 <content [facility] aminotransferase styleCode="Bold"> [facility] hs [Enzymatic Alanine Medical activity/volume] Aminotransferase Center in Serum or Plasma (ALT) </content>35 IU/L<content styleCode="Italic s"> (7-50 IU/L)</content> Albumin 3.5-5.0 Below low <content [facility] [Mass/volume] in normal styleCode="Bold"> [facility]i hs Serum or Plasma Albumin Medical </content>3.2 Center G/DL L<content styleCode="Italic s"> (3.5-5.0 G/DL)</content> ID Date Data Source Liver 12/21/2019 06:03:00 AM EDT [facility] Profile.[id number] Name Value Range Interpretation Description Data Sup porting Code Source(s) Document(s ) Alkaline 38-126 <content [facility] phosphatase styleCode="Bold"> [facility] [Enzymatic Alkaline Medical activity/volume] Phosphatase (ALP) Cente r in Serum or Plasma </content>101 IU/L<content styleCode="Italic s"> (38-126 IU/L)</content> Alanine 7-50 <content [facility] aminotransferase styleCode="Bold"> [facility] hs [Enzymatic Alanine Medical activity/volume] Aminotransferase Center in Serum or Plasma (ALT) </content>29 IU/L<content styleCode="Italic s"> (7-50 IU/L)</content> Aspartate 17-59 <content [facility] aminotransferase styleCode="Bold"> [facility] hs [Enzymatic Aspartate Medical activity/volume] Aminotransferase Center in Serum or Plasma (AST) </content>26 IU/L<content styleCode="Italic s"> (17-59 IU/L)</content> Albumin 3.5-5.0 Below low <content [facility] [Mass/volume] in normal styleCode="Bold"> [facility] hs Serum or Plasma Albumin Medical </content>3.0 Center G/DL L<content styleCode="Italic s"> (3.5-5.0 G/DL)</content> Bilirubin.total 0.2-1.3 <content [facility] [Mass/volume] in styleCode="Bold"> [facility] hs Serum or Plasma Bilirubin Total Medical </content>0.4 Center MG/DL<content styleCode="Italic s"> (0.2-1.3 MG/DL)</content> ID Date Data Source HematologyRou.[id number] 12/21/2019 06:03:00 AM EDT [facility] 0400 Name Value Range Interpretation Description Data Sup porting Code Source(s) Document(s ) Erythrocytes 4.4-5.9 <content [facility] [#/volume] in styleCode="Bold True Blood by ">Red Blood Medical Automated count Cell Count Center </content>4.57 MCUMM<content styleCode="Ital ics"> (4.4-5.9 MCUMM)</content > Hemoglobin 13.5-17. Below low normal <content [facility] [Mass/volume] in 5 styleCode="Bold True Blood ">Hemoglobin Medical </content>13.4 Center G/DL L<content styleCode="Ital ics"> (13.5-17.5 G/DL)</content> Leukocytes 4.4-11.0 <content [facility] [#/volume] in styleCode="Bold True Blood by ">White Blood Medical Automated count Cell Count Center </content>5.18 KCUMM<content styleCode="Ital ics"> (4.4-11.0 KCUMM)</content > Hematocrit 41.0-53. Below low normal <content [facility] [Volume 0 styleCode="Bold [facility] Fraction] of ">Hematocrit Medical Blood by </content>40.4 Center Automated count % L<content styleCode="Ital ics"> (41.0-53.0 %)</content> Erythrocyte mean 26.0-34. <content [facility] corpuscular 0 styleCode="Bold True hemoglobin ">Mean Medical [Entitic mass] Corposcular Center by Automated Hemoglobin count </content>29.3 PG<content styleCode="Ital ics"> (26.0-34.0 PG)</content> Erythrocyte mean 80.0-100 <content [facility] corpuscular .0 styleCode="Bold [facility] volume [Entitic ">Mean Medical volume] by Corpuscular Center Automated count Volume </content>88.4 FL<content styleCode="Ital ics"> (80.0-100.0 FL)</content> Platelets 130-400 Below low normal <content [facility] [#/volume] in styleCode="Bold True Blood by ">Platelet Medical Automated count Count Center </content>108 KCUMM L<content styleCode="Ital ics"> (130-400 KCUMM)</content > Erythrocyte mean 32.0-37. <content [facility] corpuscular 0 styleCode="Bold True hemoglobin ">Mean Corpus. Medical concentration Hgb Center [Mass/volume] by Concentration Automated count (MCHC) </content>33.2 G/DL<content styleCode="Ital ics"> (32.0-37.0 G/DL)</content> Erythrocyte 11.5-14. <content [facility] distribution 5 styleCode="Bold True width [Ratio] by ">Red Cell Medical Automated count Distribution Center Width </content>13.3 %<content styleCode="Ital ics"> (11.5-14.5 %)</content> Platelet mean 8.0-11.0 <content [facility] volume [Entitic styleCode="Bold True volume] in Blood ">Mean Platelet Medical by Automated Volume Center count </content>10.8 FL<content styleCode="Ital ics"> (8.0-11.0 FL)</content> UNK 1.6-7.3 <content [facility] styleCode="Bold True ">Neutrophil Medical Count Center </content>3.93 KCUMM<content styleCode="Ital ics"> (1.6-7.3 KCUMM)</content > Neutrophils 36-66 Above high <content [facility] [#/volume] in normal styleCode="Bold True Blood by ">Neutrophil Medical Automated count </content>75.8 Center % H<content styleCode="Ital ics"> (36-66 %)</content> Monocytes 3.0-10.0 Above high <content [facility] [#/volume] in normal styleCode="Bold True Blood by ">Monocyte Medical Automated count </content>12.0 Center % H<content styleCode="Ital ics"> (3.0-10.0 %)</content> Lymphocytes 24.0-44. Below low normal <content [facility] [#/volume] in 0 styleCode="Bold True Blood by ">Lymphocyte Medical Automated count </content>6.0 % Center L<content styleCode="Ital ics"> (24.0-44.0 %)</content> UNK 1.0-4.8 Below low normal <content [facility] styleCode="Bold True ">Lymphocyte Medical Count Center </content>0.31 KCUMM L<content styleCode="Ital ics"> (1.0-4.8 KCUMM)</content > Eosinophils 0-5.0 Above high <content [facility] [#/volume] in normal styleCode="Bold True Blood by ">Eosinophil Medical Automated count </content>5.6 % Center H<content styleCode="Ital ics"> (0-5.0 %)</content> UNK 0.2-0.9 <content [facility] styleCode="Bold True ">Monocyte Medical Count Center </content>0.62 KCUMM<content styleCode="Ital ics"> (0.2-0.9 KCUMM)</content > UNK 0.0-0.6 <content [facility] styleCode="Bold True ">Eosinophil Medical Count Center </content>0.29 KCUMM<content styleCode="Ital ics"> (0.0-0.6 KCUMM)</content > UNK 0.0-0.3 <content [facility] styleCode="Bold True ">Basophil Medical Count Center </content>0.02 KCUMM<content styleCode="Ital ics"> (0.0-0.3 KCUMM)</content > UNK 0.0 <content [facility] styleCode="Bold True ">Nucleated Red Medical Blood Cell Center Count </content>0.00 KCUMM<content styleCode="Ital ics"> (0.0 KCUMM)</content > UNK 0 <content [facility] styleCode="Bold True ">Nucleated Red Medical Blood Cell Center </content>0.0 /100<content styleCode="Ital ics"> (0 /100)</content> Basophils 0.0-1.0 <content [facility] [#/volume] in styleCode="Bold True Blood by ">Basophil Medical Automated count </content>0.4 Center %<content styleCode="Ital ics"> (0.0-1.0 %)</content> UNK < 1 <content [facility] styleCode="Bold True ">Immature Medical Granulocyte Center Ratio </content>0.2 %<content styleCode="Ital ics"> (< 1 %)</content> UNK 0-0.1 <content [facility] styleCode="Bold True ">Immature Medical Granulocyte Center Count </content>0.01 KCUMM<content styleCode="Ital ics"> (0-0.1 KCUMM)</content > ID Date Data Source GFR(Creatinine).[id number] 12/21/2019 06:03:00 AM EDT [facility] 0-0400 Name Value Range Interpretation Code Description Data Libra rce(s) Supporting Document(s ) UNK > 60 <content [facility] styleCode="Bold"> Medical Cent er EGFR </content>81 GFR<content styleCode="Italic s"> (> 60 GFR)</content> ID Date Data Source Coagulation 12/21/2019 06:03:00 AM [facility] ical Center Rout.[id number] EDT Name Value Range Interpretation Description Data Sup porting Code Source(s) Document(s ) INR in 0.80-1.2 Above high normal <content [facility] Platelet poor 0 styleCode="Bold" True plasma by >INR Medical Coagulation </content>1.23 # Center assay H<content styleCode="Itali cs"> (0.80-1.20 #)</content> UNK 9.0-13.0 Above high normal <content [facility] styleCode="Bold" True >Protime Medical </content>13.6 Center SEC H<content styleCode="Itali cs"> (9.0-13.0 SEC)</content> aPTT in 25.1-36. <content [facility] Platelet poor 5 styleCode="Bold" [facility] plasma by >Partial Medical Coagulation Thromboplastin Center assay Time </content>32.7 SEC<content styleCode="Itali cs"> (25.1-36.5 SEC)</content> ID Date Data Source AMYMROUTINECCSALMA.[id number] 12/21/2019 06:03:00 AM EDT [facility] -0400 Name Value Range Interpretation Description Data Sup porting Code Source(s) Document(s ) UNK >= 1.0 <content [facility] styleCode="Beverly Jamess d">AG Ratio Medical </content>1.0 Center <content styleCode="Suzi lics"> (>= 1.0 )</content> UNK 2.3-3.5 <content [facility] styleCode="Beverly True d">Globulin Medical </content>3.1 Center G/DL<content styleCode="Suzi lics"> (2.3-3.5 G/DL)</content > Phosphate 2.5-4.5 <content [facility] [Mass/volume] styleCode="Beverly Jamess in Serum or d">Phosphorus Medical Plasma </content>2.9 Center MG/DL<content styleCode="Suzi lics"> (2.5-4.5 MG/DL)</conten t> Magnesium 1.6-2.3 <content [facility] [Mass/volume] styleCode="Beverly Jamess in Serum or d">Magnesium Medical Plasma </content>2.0 Center MG/DL<content styleCode="Suzi lics"> (1.6-2.3 MG/DL)</conten t> Protein 6.3-8.2 Below low normal <content [facility] [Mass/volume] styleCode="Beverly Jamess in Serum or d">Total Medical Plasma Protein Center </content>6.1 G/DL L<content styleCode="Suzi lics"> (6.3-8.2 G/DL)</content > ID Date Data Source [facility].[id number] 12/21/2019 06:03:00 AM EDT [facility] Name Value Range Interpretation Description Data Sup porting Code Source(s) Document(s ) Sodium 137-145 Below low <content [facility] [Moles/volume] in normal styleCode="Bold"> [facility] Serum or Plasma Sodium Medical </content>134 Center MEQ/L L<content styleCode="Italic s"> (137-145 MEQ/L)</content> Carbon dioxide, 22-30 <content [facility] total styleCode="Bold"> True [Moles/volume] in Carbon Dioxide Medical Serum or Plasma </content>26 Center MEQ/L<content styleCode="Italic s"> (22-30 MEQ/L)</content> Chloride 98-107 <content [facility] [Moles/volume] in styleCode="Bold"> [facility] ph[facility] Serum or Plasma Chloride Medical </content>106 Center MEQ/L<content styleCode="Italic s"> (98-107 MEQ/L)</content> Potassium 3.5-5.3 <content [facility] [Moles/volume] in styleCode="Bold"> [facility]ki phs Serum or Plasma Potassium Medical </content>4.5 Center MEQ/L<content styleCode="Italic s"> (3.5-5.3 MEQ/L)</content> UNK 9-20 <content [facility] styleCode="Bold"> True BUN </content>18 Medical MG/DL<content Center styleCode="Italic s"> (9-20 MG/DL)</content> Creatinine 0.5-1.3 <content [facility] [Mass/volume] in styleCode="Bold"> Tomi hs Serum or Plasma Creatinine Medical </content>1.0 Center MG/DL<content styleCode="Italic s"> (0.5-1.3 MG/DL)</content> Glucose 74-106 Above high <content [facility] [Mass/volume] in normal styleCode="Bold"> [facility] Serum or Plasma Glucose Medical </content>129 Center MG/DL H<content styleCode="Italic s"> (74-106 MG/DL)</content> UNK > 60 <content [facility] styleCode="Bold"> True EGFR </content>81 Medical GFR<content Center styleCode="Italic s"> (> 60 GFR)</content> Calcium 8.4-10. <content [facility] [Mass/volume] in 2 styleCode="Bold"> Tomi hs Serum or Plasma Calcium Medical </content>8.4 Center MG/DL<content styleCode="Italic s"> (8.4-10.2 MG/DL)</content> Aspartate 17-59 <content [facility] aminotransferase styleCode="Bold"> [facility] [Enzymatic Aspartate Medical activity/volume] Aminotransferase Center in Serum or Plasma (AST) </content>26 IU/L<content styleCode="Italic s"> (17-59 IU/L)</content> Alanine 7-50 <content [facility] aminotransferase styleCode="Bold"> [facility] [Enzymatic Alanine Medical activity/volume] Aminotransferase Center in Serum or Plasma (ALT) </content>29 IU/L<content styleCode="Italic s"> (7-50 IU/L)</content> Alkaline 38-126 <content [facility] phosphatase styleCode="Bold"> [facility] [Enzymatic Alkaline Medical activity/volume] Phosphatase (ALP) Cente r in Serum or Plasma </content>101 IU/L<content styleCode="Italic s"> (38-126 IU/L)</content> Albumin 3.5-5.0 Below low <content [facility] [Mass/volume] in normal styleCode="Bold"> [facility] Serum or Plasma Albumin Medical </content>3.0 Center G/DL L<content styleCode="Italic s"> (3.5-5.0 G/DL)</content> Bilirubin.total 0.2-1.3 <content [facility] [Mass/volume] in styleCode="Bold"> [facility] Serum or Plasma Bilirubin Total Medical </content>0.4 Center MG/DL<content styleCode="Italic s"> (0.2-1.3 MG/DL)</content> ID Date Data Source Microbiology.[id number] 12/20/2019 05:12:00 PM EDT [facility] 400 Name Value Range Interpretation Code Description Data Libra rce(s) Supporting Document(s ) UNK <item><content [facility] Culture Report </content>
<t able><tbody><tr>< td>Specimen Number:</td><td>[id number]</td></tr ><tr><td>Sample Collection Date/Time: </td><td> 0 5:12 PM</td></tr><tr>< td>Specimen Source:</td><td>U RINE</td></tr><tr ><td>Urine Culture:</td><td> Collection Plate Date: 12/20/2019 18:46 </td></tr><tr><td >Culture Status:</td><td>P reliminary </td></tr><tr><td >Culture Report:</td><td>C ulture in progress </td></tr></tbody ></table></item> UNK <item><content [facility] Culture Status </content>
<t able><tbody><tr>< td>Specimen Number:</td><td>[id number]</td></tr ><tr><td>Sample Collection Date/Time: </td><td> 0 5:12 PM</td></tr><tr>< td>Specimen Source:</td><td>U RINE</td></tr><tr ><td>Culture Report:</td><td>C ulture in progress </td></tr><tr><td >Urine Culture:</td><td> Collection Plate Date: 12/20/2019 18:46 </td></tr><tr><td >Culture Status:</td><td>P reliminary </td></tr></tbody ></table></item> ID Date Data Source Liver 12/20/2019 06:05:00 AM EDT [facility] Profile.[id number] Name Value Range Interpretation Description Data Sup porting Code Source(s) Document(s ) Alanine 7-50 <content [facility] aminotransferase styleCode="Bold"> Tomi hs [Enzymatic Alanine Medical activity/volume] Aminotransferase Center in Serum or Plasma (ALT) </content>32 IU/L<content styleCode="Italic s"> (7-50 IU/L)</content> Aspartate 17-59 <content [facility] aminotransferase styleCode="Bold"> Tomi hs [Enzymatic Aspartate Medical activity/volume] Aminotransferase Center in Serum or Plasma (AST) </content>28 IU/L<content styleCode="Italic s"> (17-59 IU/L)</content> Bilirubin.total 0.2-1.3 <content [facility] [Mass/volume] in styleCode="Bold"> Tomi hs Serum or Plasma Bilirubin Total Medical </content>0.5 Center MG/DL<content styleCode="Italic s"> (0.2-1.3 MG/DL)</content> Alkaline 38-126 <content [facility] phosphatase styleCode="Bold"> True [Enzymatic Alkaline Medical activity/volume] Phosphatase (ALP) Cente r in Serum or Plasma </content>96 IU/L<content styleCode="Italic s"> (38-126 IU/L)</content> Albumin 3.5-5.0 Below low <content [facility] [Mass/volume] in normal styleCode="Bold"> Tomi hs Serum or Plasma Albumin Medical </content>3.3 Center G/DL L<content styleCode="Italic s"> (3.5-5.0 G/DL)</content> ID Date Data Source HematologyRou.[id number] 12/20/2019 06:05:00 AM [facility] Name Value Range Interpretation Description Data Sup porting Code Source(s) Document(s ) Erythrocytes 4.4-5.9 <content [facility] [#/volume] in styleCode="Bold [facility] Blood by ">Red Blood Medical Automated count Cell Count Center </content>4.67 MCUMM<content styleCode="Ital ics"> (4.4-5.9 MCUMM)</content > Leukocytes 4.4-11.0 <content [facility] [#/volume] in styleCode="Bold True Blood by ">White Blood Medical Automated count Cell Count Center </content>4.97 KCUMM<content styleCode="Ital ics"> (4.4-11.0 KCUMM)</content > Hemoglobin 13.5-17. <content [facility] [Mass/volume] in 5 styleCode="Bold True Blood ">Hemoglobin Medical </content>13.5 Center G/DL<content styleCode="Ital ics"> (13.5-17.5 G/DL)</content> Erythrocyte mean 32.0-37. <content [facility] corpuscular 0 styleCode="Bold True hemoglobin ">Mean Corpus. Medical concentration Hgb Center [Mass/volume] by Concentration Automated count (MCHC) </content>32.5 G/DL<content styleCode="Ital ics"> (32.0-37.0 G/DL)</content> Erythrocyte mean 80.0-100 <content [facility] corpuscular .0 styleCode="Bold True volume [Entitic ">Mean Medical volume] by Corpuscular Center Automated count Volume </content>88.9 FL<content styleCode="Ital ics"> (80.0-100.0 FL)</content> Erythrocyte mean 26.0-34. <content [facility] corpuscular 0 styleCode="Bold True hemoglobin ">Mean Medical [Entitic mass] Corposcular Center by Automated Hemoglobin count </content>28.9 PG<content styleCode="Ital ics"> (26.0-34.0 PG)</content> Hematocrit 41.0-53. <content [facility] [Volume 0 styleCode="Bold True Fraction] of ">Hematocrit Medical Blood by </content>41.5 Center Automated count %<content styleCode="Ital ics"> (41.0-53.0 %)</content> Platelet mean 8.0-11.0 <content [facility] volume [Entitic styleCode="Bold True volume] in Blood ">Mean Platelet Medical by Automated Volume Center count </content>10.9 FL<content styleCode="Ital ics"> (8.0-11.0 FL)</content> Platelets 130-400 Below low normal <content Saint [#/volume] in styleCode="Bold True Blood by ">Platelet Medical Automated count Count Center </content>104 KCUMM L<content styleCode="Ital ics"> (130-400 KCUMM)</content > Erythrocyte 11.5-14. <content [facility] distribution 5 styleCode="Bold True width [Ratio] by ">Red Cell Medical Automated count Distribution Center Width </content>13.4 %<content styleCode="Ital ics"> (11.5-14.5 %)</content> Lymphocytes 24.0-44. Below low normal <content Saint [#/volume] in 0 styleCode="Bold True Blood by ">Lymphocyte Medical Automated count </content>7.6 % Center L<content styleCode="Ital ics"> (24.0-44.0 %)</content> UNK 1.6-7.3 <content [facility] styleCode="Bold True ">Neutrophil Medical Count Center </content>3.62 KCUMM<content styleCode="Ital ics"> (1.6-7.3 KCUMM)</content > UNK 1.0-4.8 Below low normal <content Saint styleCode="Bold True ">Lymphocyte Medical Count Center </content>0.38 KCUMM L<content styleCode="Ital ics"> (1.0-4.8 KCUMM)</content > Neutrophils 36-66 Above high <content Saint [#/volume] in normal styleCode="Bold True Blood by ">Neutrophil Medical Automated count </content>72.9 Center % H<content styleCode="Ital ics"> (36-66 %)</content> Eosinophils 0-5.0 Above high <content Saint [#/volume] in normal styleCode="Bold True Blood by ">Eosinophil Medical Automated count </content>6.4 % Center H<content styleCode="Ital ics"> (0-5.0 %)</content> Monocytes 3.0-10.0 Above high <content Saint [#/volume] in normal styleCode="Bold True Blood by ">Monocyte Medical Automated count </content>12.5 Center % H<content styleCode="Ital ics"> (3.0-10.0 %)</content> UNK 0.2-0.9 <content Saint styleCode="Bold True ">Monocyte Medical Count Center </content>0.62 KCUMM<content styleCode="Ital ics"> (0.2-0.9 KCUMM)</content > UNK 0 <content [facility] styleCode="Bold True ">Nucleated Red Medical Blood Cell Center </content>0.0 /100<content styleCode="Ital ics"> (0 /100)</content> UNK 0.0-0.6 <content [facility] styleCode="Bold True ">Eosinophil Medical Count Center </content>0.32 KCUMM<content styleCode="Ital ics"> (0.0-0.6 KCUMM)</content > Basophils 0.0-1.0 <content Saint [#/volume] in styleCode="Bold True Blood by ">Basophil Medical Automated count </content>0.4 Center %<content styleCode="Ital ics"> (0.0-1.0 %)</content> UNK 0.0-0.3 <content [facility] styleCode="Bold True ">Basophil Medical Count Center </content>0.02 KCUMM<content styleCode="Ital ics"> (0.0-0.3 KCUMM)</content > UNK 0.0 <content [facility] styleCode="Bold True ">Nucleated Red Medical Blood Cell Center Count </content>0.00 KCUMM<content styleCode="Ital ics"> (0.0 KCUMM)</content > UNK < 1 <content [facility] styleCode="Bold True ">Immature Medical Granulocyte Center Ratio </content>0.2 %<content styleCode="Ital ics"> (< 1 %)</content> UNK 0-0.1 <content [facility] styleCode="Bold True ">Immature Medical Granulocyte Center Count </content>0.01 KCUMM<content styleCode="Ital ics"> (0-0.1 KCUMM)</content > ID Date Data Source GFR(Creatinine).[id number] 12/20/2019 06:05:00 AM EDT [facility] 0-0400 Name Value Range Interpretation Code Description Data Libra rce(s) Supporting Document(s ) UNK > 60 <content [facility] styleCode="Bold"> Medical Cent er EGFR </content>72 GFR<content styleCode="Italic s"> (> 60 GFR)</content> ID Date Data Source Coagulation 12/20/2019 06:05:00 AM [facility] ical Center Rout.[id number] EDT Name Value Range Interpretation Description Data Sup porting Code Source(s) Document(s ) UNK 9.0-13.0 Above high normal <content [facility] styleCode="Bold" True >Protime Medical </content>13.7 Center SEC H<content styleCode="Itali cs"> (9.0-13.0 SEC)</content> INR in 0.80-1.2 Above high normal <content [facility] Platelet poor 0 styleCode="Bold" True plasma by >INR Medical Coagulation </content>1.23 # Center assay H<content styleCode="Itali cs"> (0.80-1.20 #)</content> aPTT in 25.1-36. <content [facility] Platelet poor 5 styleCode="Bold" True plasma by >Partial Medical Coagulation Thromboplastin Center assay Time </content>30.1 SEC<content styleCode="Itali cs"> (25.1-36.5 SEC)</content> ID Date Data Source CHMROUTINECCDA.[id number] 12/20/2019 06:05:00 AM EDT [facility] -0400 Name Value Range Interpretation Description Data Sup porting Code Source(s) Document(s ) UNK 2.3-3.5 <content Saint styleCode="Beverly True d">Globulin Medical </content>3.0 Center G/DL<content styleCode="Suzi lics"> (2.3-3.5 G/DL)</content > Phosphate 2.5-4.5 <content Saint [Mass/volume] styleCode="Beverly True in Serum or d">Phosphorus Medical Plasma </content>3.2 Center MG/DL<content styleCode="Suzi lics"> (2.5-4.5 MG/DL)</conten t> UNK >= 1.0 <content [facility] styleCode="Beverly True d">AG Ratio Medical </content>1.1 Center <content styleCode="Suzi lics"> (>= 1.0 )</content> Magnesium 1.6-2.3 <content Saint [Mass/volume] styleCode="Beverly True in Serum or d">Magnesium Medical Plasma </content>2.1 Center MG/DL<content styleCode="Suzi lics"> (1.6-2.3 MG/DL)</conten t> Protein 6.3-8.2 <content [facility] [Mass/volume] styleCode="Beverly True in Serum or d">Total Medical Plasma Protein Center </content>6.3 G/DL<content styleCode="Suzi lics"> (6.3-8.2 G/DL)</content > ID Date Data Source [facility].[id number] 12/20/2019 06:05:00 AM EDT [facility] Name Value Range Interpretation Code Description Data Libra rce(s) Supporting Document(s ) UNK <content [facility] styleCode="Bold" Medical Cente r >RH Type </content>NEGATI VE (Reference Range: not available)
UNK NEGATIVE <content [facility] styleCode="Bold" Medical Cente r >Antibody Screen </content>NEGATI VE <content styleCode="Itali cs"> (NEGATIVE )</content> UNK <content [facility] styleCode="Bold" Medical Cente r >Blood Type </content>GROUP O (Reference Range: not available)
ID Date Data Source [facility].[id number] 12/20/2019 06:05:00 AM EDT [facility] Name Value Range Interpretation Description Data Sup porting Code Source(s) Document(s ) Potassium 3.5-5.3 <content [facility] [Moles/volume] in styleCode="Bold"> Vikki phs Serum or Plasma Potassium Medical </content>4.9 Center MEQ/L<content styleCode="Italic s"> (3.5-5.3 MEQ/L)</content> Sodium 137-145 Below low <content [facility] [Moles/volume] in normal styleCode="Bold"> Vikki phs Serum or Plasma Sodium Medical </content>135 Center MEQ/L L<content styleCode="Italic s"> (137-145 MEQ/L)</content> Carbon dioxide, 22-30 <content [facility] total styleCode="Bold"> True [Moles/volume] in Carbon Dioxide Medical Serum or Plasma </content>26 Center MEQ/L<content styleCode="Italic s"> (22-30 MEQ/L)</content> Chloride 98-107 <content [facility] [Moles/volume] in styleCode="Bold"> Vikki [facility] Serum or Plasma Chloride Medical </content>105 Center MEQ/L<content styleCode="Italic s"> (98-107 MEQ/L)</content> Creatinine 0.5-1.3 <content [facility] [Mass/volume] in styleCode="Bold"> Tomi hs Serum or Plasma Creatinine Medical </content>1.1 Center MG/DL<content styleCode="Italic s"> (0.5-1.3 MG/DL)</content> Glucose 74-106 Above high <content [facility] [Mass/volume] in normal styleCode="Bold"> Tomi hs Serum or Plasma Glucose Medical </content>117 Center MG/DL H<content styleCode="Italic s"> (74-106 MG/DL)</content> UNK 9-20 <content [facility] styleCode="Bold"> True BUN </content>17 Medical MG/DL<content Center styleCode="Italic s"> (9-20 MG/DL)</content> UNK > 60 <content [facility] styleCode="Bold"> True EGFR </content>72 Medical GFR<content Center styleCode="Italic s"> (> 60 GFR)</content> Calcium 8.4-10. <content [facility] [Mass/volume] in 2 styleCode="Bold"> Tomi hs Serum or Plasma Calcium Medical </content>8.7 Center MG/DL<content styleCode="Italic s"> (8.4-10.2 MG/DL)</content> Alanine 7-50 <content [facility] aminotransferase styleCode="Bold"> Tomi hs [Enzymatic Alanine Medical activity/volume] Aminotransferase Center in Serum or Plasma (ALT) </content>32 IU/L<content styleCode="Italic s"> (7-50 IU/L)</content> Aspartate 17-59 <content [facility] aminotransferase styleCode="Bold"> Tomi hs [Enzymatic Aspartate Medical activity/volume] Aminotransferase Center in Serum or Plasma (AST) </content>28 IU/L<content styleCode="Italic s"> (17-59 IU/L)</content> Alkaline 38-126 <content [facility] phosphatase styleCode="Bold"> True [Enzymatic Alkaline Medical activity/volume] Phosphatase (ALP) Cente r in Serum or Plasma </content>96 IU/L<content styleCode="Italic s"> (38-126 IU/L)</content> Albumin 3.5-5.0 Below low <content [facility] [Mass/volume] in normal styleCode="Bold"> Tomi hs Serum or Plasma Albumin Medical </content>3.3 Center G/DL L<content styleCode="Italic s"> (3.5-5.0 G/DL)</content> Bilirubin.total 0.2-1.3 <content [facility] [Mass/volume] in styleCode="Bold"> Tomi hs Serum or Plasma Bilirubin Total Medical </content>0.5 Center MG/DL<content styleCode="Italic s"> (0.2-1.3 MG/DL)</content> ID Date Data Source Urinalysis.[id number] 12/19/2019 10:40:00 AM EDT [facility] 0 Name Value Range Interpretation Description Data Sup porting Code Source(s) Document(s ) Color of Urine YELLOW <content Saint styleCode="Beverly Jamess d">Color, Medical Urine Center </content>YELL OW <content styleCode="Suzi lics"> (YELLOW )</content> UNK NEGATIVE <content Saint styleCode="[facility] d">Urine Medical Bilirubin Center </content>NEGA TIVE <content styleCode="Suzi lics"> (NEGATIVE )</content> Glucose NEGATIVE <content Saint [Mass/volume] styleCode="Beverly Biswas in Urine by d">Urine Medical Test strip Glucose Center </content>NEGA TIVE MG/DL<content styleCode="Suzi lics"> (NEGATIVE MG/DL)</conten t> Ketones NEGATIVE <content Saint [Mass/volume] styleCode="Beverly Jamess in Urine by d">Urine Medical Test strip Ketone Center </content>NEGA TIVE MG/DL<content styleCode="Suzi lics"> (NEGATIVE MG/DL)</conten t> UNK CLEAR <content [facility] styleCode="[facility] d">Urine Medical Clarity Center </content>RONDA R <content styleCode="Suzi lics"> (CLEAR )</content> pH of Urine by 4.5-8.0 <content Saint Test strip styleCode="Beverly Jamess d">Urine pH Medical </content>6.0 Center <content styleCode="Suzi lics"> (4.5-8.0 )</content> Hemoglobin NEGATIVE <content Saint [Presence] in styleCode="Beverly Biswas Urine by Test d">Urine Blood Medical strip </content>LARG Center E <content styleCode="Suzi lics"> (NEGATIVE )</content> Specific 1.015-1.02 <content Saint gravity of 5 styleCode="Beverly Biswas Urine by Test d">Urine Medical strip Specific Center [place] </content>1.01 5 <content styleCode="Suzi lics"> (1.015-1.025 )</content> Protein NEGATIVE <content Saint [Mass/volume] styleCode="Beverly Bis[place] in Urine by d">Urine Medical Test strip Protein Center </content>NEGA TIVE MG/DL<content styleCode="Suzi lics"> (NEGATIVE MG/DL)</conten t> Nitrite NEGATIVE <content Saint [Presence] in styleCode="Beverly Biswas Urine by Test d">Urine Medical strip Nitrite Center </content>NEGA TIVE <content styleCode="Suzi lics"> (NEGATIVE )</content> Urobilinogen 0.2-1.0 <content Saint [Units/volume] styleCode="Beverly Biswas in Urine by d">Urine Medical Test strip Urobilinogen Center </content>0.2 MG/DL<content styleCode="Suzi lics"> (0.2-1.0 MG/DL)</conten t> UNK 0-3 <content Saint styleCode="Beverly Jamess d">Urine White Medical Blood Cell Center </content>0-3 HPF<content styleCode="Suzi lics"> (0-3 HPF)</content> UNK 0-3 <content Saint styleCode="Beverly Jamess d">Urine Red Medical Blood Cell Center </content>50 - 100 HPF<content styleCode="Suzi lics"> (0-3 HPF)</content> Leukocyte NEGATIVE <content Saint esterase styleCode="Beverly Biswas [Presence] in d">Urine Medical Urine by Test Leukocyte Center strip </content>NEGA TIVE <content styleCode="Suzi lics"> (NEGATIVE )</content> ID Date Data Source Microbiology.[id number] 12/19/2019 10:40:00 AM EDT [facility] 400 Name Value Range Interpretation Code Description Data Libra rce(s) Supporting Document(s ) UNK <item><content [facility] styleCode="Bold"> Medical Cent er Culture Report </content>
<t able><tbody><tr>< td>Specimen Number:</td><td>[id number]</td></tr ><tr><td>Sample Collection Date/Time: </td><td> 0 10:40 AM</td></tr><tr>< td>Specimen Source:</td><td>U RINE</td></tr><tr ><td>Culture Report:</td><td>N O GROWTH </td></tr><tr><td >Urine Culture:</td><td> Collection Plate Date: 12/19/2019 10:52 </td></tr><tr><td >Culture Status:</td><td>F inal </td></tr></tbody ></table></item> UNK <item><content [facility] styleCode="Bold"> Medical [facility] er Culture Status </content>
<t able><tbody><tr>< td>Specimen Number:</td><td>[id number]</td></tr ><tr><td>Sample Collection Date/Time: </td><td> 0 10:40 AM</td></tr><tr>< td>Specimen Source:</td><td>U RINE</td></tr><tr ><td>Culture Status:</td><td>F inal </td></tr><tr><td >Culture Report:</td><td>N O GROWTH </td></tr><tr><td >Urine Culture:</td><td> Collection Plate Date: 12/19/2019 10:52 </td></tr></tbody ></table></item> ID Date Data Source Liver 12/19/2019 06:10:00 AM EDT [facility] Profile.[id number] Name Value Range Interpretation Description Data Sup porting Code Source(s) Document(s ) Aspartate 17-59 <content [facility] aminotransferase styleCode="Bold"> Tomi hs [Enzymatic Aspartate Medical activity/volume] Aminotransferase Center in Serum or Plasma (AST) </content>30 IU/L<content styleCode="Italic s"> (17-59 IU/L)</content> Alanine 7-50 <content [facility] aminotransferase styleCode="Bold"> Tomi hs [Enzymatic Alanine Medical activity/volume] Aminotransferase Center in Serum or Plasma (ALT) </content>36 IU/L<content styleCode="Italic s"> (7-50 IU/L)</content> Albumin 3.5-5.0 Below low <content [facility] [Mass/volume] in normal styleCode="Bold"> Tomi hs Serum or Plasma Albumin Medical </content>3.1 Center G/DL L<content styleCode="Italic s"> (3.5-5.0 G/DL)</content> Alkaline 38-126 <content [facility] phosphatase styleCode="Bold"> True [Enzymatic Alkaline Medical activity/volume] Phosphatase (ALP) Cente r in Serum or Plasma </content>103 IU/L<content styleCode="Italic s"> (38-126 IU/L)</content> Bilirubin.total 0.2-1.3 <content [facility] [Mass/volume] in styleCode="Bold"> Tomi hs Serum or Plasma Bilirubin Total Medical </content>0.3 Center MG/DL<content styleCode="Italic s"> (0.2-1.3 MG/DL)</content> ID Date Data Source HematologyRou.[id number] 12/19/2019 06:10:00 AM EDT [facility] 0400 Name Value Range Interpretation Description Data Sup porting Code Source(s) Document(s ) Erythrocytes 4.4-5.9 <content Saint [#/volume] in styleCode="Bold True Blood by ">Red Blood Medical Automated count Cell Count Center </content>4.69 MCUMM<content styleCode="Ital ics"> (4.4-5.9 MCUMM)</content > Leukocytes 4.4-11.0 <content Saint [#/volume] in styleCode="Bold True Blood by ">White Blood Medical Automated count Cell Count Center </content>4.56 KCUMM<content styleCode="Ital ics"> (4.4-11.0 KCUMM)</content > Erythrocyte mean 80.0-100 <content [facility] corpuscular .0 styleCode="Bold True volume [Entitic ">Mean Medical volume] by Corpuscular Center Automated count Volume </content>88.5 FL<content styleCode="Ital ics"> (80.0-100.0 FL)</content> Erythrocyte mean 26.0-34. <content [facility] corpuscular 0 styleCode="Bold True hemoglobin ">Mean Medical [Entitic mass] Corposcular Center by Automated Hemoglobin count </content>29.9 PG<content styleCode="Ital ics"> (26.0-34.0 PG)</content> Hemoglobin 13.5-17. <content [facility] [Mass/volume] in 5 styleCode="Bold True Blood ">Hemoglobin Medical </content>14.0 Center G/DL<content styleCode="Ital ics"> (13.5-17.5 G/DL)</content> Hematocrit 41.0-53. <content Saint [Volume 0 styleCode="Bold True Fraction] of ">Hematocrit Medical Blood by </content>41.5 Center Automated count %<content styleCode="Ital ics"> (41.0-53.0 %)</content> Erythrocyte mean 32.0-37. <content [facility] corpuscular 0 styleCode="Bold True hemoglobin ">Mean Corpus. Medical concentration Hgb Center [Mass/volume] by Concentration Automated count (MCHC) </content>33.7 G/DL<content styleCode="Ital ics"> (32.0-37.0 G/DL)</content> Erythrocyte 11.5-14. <content [facility] distribution 5 styleCode="Bold True width [Ratio] by ">Red Cell Medical Automated count Distribution Center Width </content>13.5 %<content styleCode="Ital ics"> (11.5-14.5 %)</content> UNK 0 <content Saint styleCode="Bold True ">Nucleated Red Medical Blood Cell Center </content>0.0 /100<content styleCode="Ital ics"> (0 /100)</content> Platelet mean 8.0-11.0 <content Saint volume [Entitic styleCode="Bold True volume] in Blood ">Mean Platelet Medical by Automated Volume Center count </content>10.8 FL<content styleCode="Ital ics"> (8.0-11.0 FL)</content> Platelets 130-400 Below low normal <content [facility] [#/volume] in styleCode="Bold True Blood by ">Platelet Medical Automated count Count Center </content>113 KCUMM L<content styleCode="Ital ics"> (130-400 KCUMM)</content > UNK 0.0 <content Saint styleCode="Bold True ">Nucleated Red Medical Blood Cell Center Count </content>0.00 KCUMM<content styleCode="Ital ics"> (0.0 KCUMM)</content > ID Date Data Source GFR(Creatinine).[id number] 12/19/2019 06:10:00 AM EDT [facility] 0-0400 Name Value Range Interpretation Code Description Data Libra rce(s) Supporting Document(s ) UNK > 60 <content [facility] styleCode="Bold"> Medical Cent er EGFR </content>65 GFR<content styleCode="Italic s"> (> 60 GFR)</content> ID Date Data Source Coagulation 12/19/2019 06:10:00 AM [facility] Rout.[id number] EDT Name Value Range Interpretation Description Data Sup porting Code Source(s) Document(s ) UNK 9.0-13.0 Above high normal <content Saint styleCode="Bold" True >Protime Medical </content>14.9 Center SEC H<content styleCode="Itali cs"> (9.0-13.0 SEC)</content> aPTT in 25.1-36. <content [facility] Platelet poor 5 styleCode="Bold" True plasma by >Partial Medical Coagulation Thromboplastin Center assay Time </content>30.6 SEC<content styleCode="Itali cs"> (25.1-36.5 SEC)</content> INR in 0.80-1.2 Above high normal <content [facility] Platelet poor 0 styleCode="Bold" [facility] plasma by >INR Medical Coagulation </content>1.34 # Center assay H<content styleCode="Itali cs"> (0.80-1.20 #)</content> ID Date Data Source [facility].[id number] 12/19/2019 06:10:00 AM EDT [facility] -0400 Name Value Range Interpretation Description Data Sup porting Code Source(s) Document(s ) Magnesium 1.6-2.3 <content Saint [Mass/volume] styleCode="Beverly Jamess in Serum or d">Magnesium Medical Plasma </content>2.0 Center MG/DL<content styleCode="Suzi lics"> (1.6-2.3 MG/DL)</conten t> UNK >= 1.0 <content Saint styleCode="Beverly Jamess d">AG Ratio Medical </content>1.0 Center <content styleCode="Suzi lics"> (>= 1.0 )</content> UNK 2.3-3.5 <content Saint styleCode="Beverly Jamess d">Globulin Medical </content>3.1 Center G/DL<content styleCode="Suzi lics"> (2.3-3.5 G/DL)</content > Protein 6.3-8.2 Below low normal <content Saint [Mass/volume] styleCode="Beverly Jamess in Serum or d">Total Medical Plasma Protein Center </content>6.2 G/DL L<content styleCode="Suzi lics"> (6.3-8.2 G/DL)</content > Phosphate 2.5-4.5 <content [facility] [Mass/volume] styleCode="Beverly True in Serum or d">Phosphorus Medical Plasma </content>3.0 Center MG/DL<content styleCode="Suzi lics"> (2.5-4.5 MG/DL)</conten t> ID Date Data Source [facility].[id number] 12/19/2019 06:10:00 AM EDT [facility] [facility] Name Value Range Interpretation Description Data Sup porting Code Source(s) Document(s ) Sodium 137-145 Below low <content [facility] [Moles/volume] in normal styleCode="Bold"> Vikki phs Serum or Plasma Sodium Medical </content>136 Center MEQ/L L<content styleCode="Italic s"> (137-145 MEQ/L)</content> Chloride 98-107 <content [facility] [Moles/volume] in styleCode="Bold"> Vikki [facility] Serum or Plasma Chloride Medical </content>107 Center MEQ/L<content styleCode="Italic s"> (98-107 MEQ/L)</content> Potassium 3.5-5.3 <content [facility] [Moles/volume] in styleCode="Bold"> Vikki [facility] Serum or Plasma Potassium Medical </content>4.7 Center MEQ/L<content styleCode="Italic s"> (3.5-5.3 MEQ/L)</content> Carbon dioxide, 22-30 <content [facility] total styleCode="Bold"> True [Moles/volume] in Carbon Dioxide Medical Serum or Plasma </content>24 Center MEQ/L<content styleCode="Italic s"> (22-30 MEQ/L)</content> Creatinine 0.5-1.3 <content [facility] [Mass/volume] in styleCode="Bold"> Tomi hs Serum or Plasma Creatinine Medical </content>1.2 Center MG/DL<content styleCode="Italic s"> (0.5-1.3 MG/DL)</content> UNK 9-20 <content [facility] styleCode="Bold"> True BUN </content>17 Medical MG/DL<content Center styleCode="Italic s"> (9-20 MG/DL)</content> Calcium 8.4-10. Below low <content [facility] [Mass/volume] in 2 normal styleCode="Bold"> Tomi hs Serum or Plasma Calcium Medical </content>8.2 Center MG/DL L<content styleCode="Italic s"> (8.4-10.2 MG/DL)</content> UNK > 60 <content [facility] styleCode="Bold"> True EGFR </content>65 Medical GFR<content Center styleCode="Italic s"> (> 60 GFR)</content> Glucose 74-106 Above high <content [facility] [Mass/volume] in normal styleCode="Bold"> Tomi hs Serum or Plasma Glucose Medical </content>110 Center MG/DL H<content styleCode="Italic s"> (74-106 MG/DL)</content> Alanine 7-50 <content [facility] aminotransferase styleCode="Bold"> Tomi hs [Enzymatic Alanine Medical activity/volume] Aminotransferase Center in Serum or Plasma (ALT) </content>36 IU/L<content styleCode="Italic s"> (7-50 IU/L)</content> Aspartate 17-59 <content [facility] aminotransferase styleCode="Bold"> Tomi hs [Enzymatic Aspartate Medical activity/volume] Aminotransferase Center in Serum or Plasma (AST) </content>30 IU/L<content styleCode="Italic s"> (17-59 IU/L)</content> Bilirubin.total 0.2-1.3 <content [facility] [Mass/volume] in styleCode="Bold"> Tomi hs Serum or Plasma Bilirubin Total Medical </content>0.3 Center MG/DL<content styleCode="Italic s"> (0.2-1.3 MG/DL)</content> Alkaline 38-126 <content [facility] phosphatase styleCode="Bold"> True [Enzymatic Alkaline Medical activity/volume] Phosphatase (ALP) Cente r in Serum or Plasma </content>103 IU/L<content styleCode="Italic s"> (38-126 IU/L)</content> Albumin 3.5-5.0 Below low <content [facility] [Mass/volume] in normal styleCode="Bold"> Tomi hs Serum or Plasma Albumin Medical </content>3.1 Center G/DL L<content styleCode="Italic s"> (3.5-5.0 G/DL)</content> ID Date Data Source Urinalysis.[id number] 12/18/2019 12:10:00 PM EDT [facility] 0 Name Value Range Interpretation Description Data Sup porting Code Source(s) Document(s ) UNK CLEAR <content [facility] styleCode="Beverly True d">Urine Medical Clarity Center </content>CLOU DY <content styleCode="Suzi lics"> (CLEAR )</content> Color of Urine YELLOW <content [facility] styleCode="Beverly True d">Color, Medical Urine Center </content>BROW N <content styleCode="Suzi lics"> (YELLOW )</content> Ketones NEGATIVE <content [facility] [Mass/volume] styleCode="Beverly True in Urine by d">Urine Medical Test strip Ketone Center </content>15 MG/DL<content styleCode="Suzi lics"> (NEGATIVE MG/DL)</conten t> UNK NEGATIVE <content [facility] styleCode="Beverly True d">Urine Medical Bilirubin Center </content>LARG E <content styleCode="Suzi lics"> (NEGATIVE )</content> Glucose NEGATIVE <content [facility] [Mass/volume] styleCode="Beverly True in Urine by d">Urine Medical Test strip Glucose Center </content>NEGA TIVE MG/DL<content styleCode="Suzi lics"> (NEGATIVE MG/DL)</conten t> pH of Urine by 4.5-8.0 <content Saint Test strip styleCode="Beverly True d">Urine pH Medical </content>7.0 Center <content styleCode="Suzi lics"> (4.5-8.0 )</content> Protein NEGATIVE <content [facility] [Mass/volume] styleCode="Beverly True in Urine by d">Urine Medical Test strip Protein Center </content>300 mg/dl MG/DL<content styleCode="Suzi lics"> (NEGATIVE MG/DL)</conten t> Hemoglobin NEGATIVE <content [facility] [Presence] in styleCode="Beverly True Urine by Test d">Urine Blood Medical strip </content>Test Center not performed. <content styleCode="Suzi lics"> (NEGATIVE )</content> Specific 1.015-1.02 <content [facility] gravity of 5 styleCode="Beverly True Urine by Test d">Urine Medical strip Specific Center [place] </content>1.02 5 <content styleCode="Suzi lics"> (1.015-1.025 )</content> Leukocyte NEGATIVE <content [facility] esterase styleCode="Beverly Biswas [Presence] in d">Urine Medical Urine by Test Leukocyte Center strip </content>Test not performed. <content styleCode="Suzi lics"> (NEGATIVE )</content> Urobilinogen 0.2-1.0 Above high <content [facility] [Units/volume] normal styleCode="Beverly Biswas in Urine by d">Urine Medical Test strip Urobilinogen Center </content>4.0 MG/DL H<content styleCode="Suzi lics"> (0.2-1.0 MG/DL)</conten t> Nitrite NEGATIVE <content [facility] [Presence] in styleCode="Beverly Biswas Urine by Test d">Urine Medical strip Nitrite Center </content>Test not performed. <content styleCode="Suzi lics"> (NEGATIVE )</content> UNK 0-3 <content [facility] styleCode="Beverly Jamess d">Urine Red Medical Blood Cell Center </content>>200 HPF<content styleCode="Suzi lics"> (0-3 HPF)</content> ID Date Data Source Liver 12/18/2019 12:10:00 PM EDT [facility] Profile.[id number] Name Value Range Interpretation Description Data Sup porting Code Source(s) Document(s ) Aspartate 17-59 <content [facility] aminotransferase styleCode="Bold"> Tomi hs [Enzymatic Aspartate Medical activity/volume] Aminotransferase Center in Serum or Plasma (AST) </content>37 IU/L<content styleCode="Italic s"> (17-59 IU/L)</content> Alkaline 38-126 <content [facility] phosphatase styleCode="Bold"> True [Enzymatic Alkaline Medical activity/volume] Phosphatase (ALP) Cente r in Serum or Plasma </content>101 IU/L<content styleCode="Italic s"> (38-126 IU/L)</content> Bilirubin.total 0.2-1.3 <content [facility] [Mass/volume] in styleCode="Bold"> Tomi hs Serum or Plasma Bilirubin Total Medical </content>0.5 Center MG/DL<content styleCode="Italic s"> (0.2-1.3 MG/DL)</content> Alanine 7-50 <content [facility] aminotransferase styleCode="Bold"> Tomi hs [Enzymatic Alanine Medical activity/volume] Aminotransferase Center in Serum or Plasma (ALT) </content>46 IU/L<content styleCode="Italic s"> (7-50 IU/L)</content> UNK 0.0-0.3 <content [facility] styleCode="Bold"> True Bilirubin, Direct Medical </content>< 0.2 Center MG/DL<content styleCode="Italic s"> (0.0-0.3 MG/DL)</content> Albumin 3.5-5.0 <content [facility] [Mass/volume] in styleCode="Bold"> Tomi hs Serum or Plasma Albumin Medical </content>3.8 Center G/DL<content styleCode="Italic s"> (3.5-5.0 G/DL)</content> ID Date Data Source HematologyRou.[id number] 12/18/2019 12:10:00 PM EDT [facility] 0400 Name Value Range Interpretation Description Data Sup porting Code Source(s) Document(s ) Leukocytes 4.4-11.0 <content Saint [#/volume] in styleCode="Bold True Blood by ">White Blood Medical Automated count Cell Count Center </content>5.90 KCUMM<content styleCode="Ital ics"> (4.4-11.0 KCUMM)</content > Erythrocytes 4.4-5.9 <content Saint [#/volume] in styleCode="Bold True Blood by ">Red Blood Medical Automated count Cell Count Center </content>4.69 MCUMM<content styleCode="Ital ics"> (4.4-5.9 MCUMM)</content > Erythrocyte mean 80.0-100 <content [facility] corpuscular .0 styleCode="Bold True volume [Entitic ">Mean Medical volume] by Corpuscular Center Automated count Volume </content>87.4 FL<content styleCode="Ital ics"> (80.0-100.0 FL)</content> Hematocrit 41.0-53. <content Saint [Volume 0 styleCode="Bold True Fraction] of ">Hematocrit Medical Blood by </content>41.0 Center Automated count %<content styleCode="Ital ics"> (41.0-53.0 %)</content> Hemoglobin 13.5-17. <content [facility] [Mass/volume] in 5 styleCode="Bold True Blood ">Hemoglobin Medical </content>13.8 Center G/DL<content styleCode="Ital ics"> (13.5-17.5 G/DL)</content> Platelets 130-400 <content Saint [#/volume] in styleCode="Bold True Blood by ">Platelet Medical Automated count Count Center </content>131 KCUMM<content styleCode="Ital ics"> (130-400 KCUMM)</content > Erythrocyte mean 32.0-37. <content [facility] corpuscular 0 styleCode="Bold True hemoglobin ">Mean Corpus. Medical concentration Hgb Center [Mass/volume] by Concentration Automated count (MCHC) </content>33.7 G/DL<content styleCode="Ital ics"> (32.0-37.0 G/DL)</content> Erythrocyte 11.5-14. <content Saint distribution 5 styleCode="Bold True width [Ratio] by ">Red Cell Medical Automated count Distribution Center Width </content>13.4 %<content styleCode="Ital ics"> (11.5-14.5 %)</content> Erythrocyte mean 26.0-34. <content [facility] corpuscular 0 styleCode="Bold Treu hemoglobin ">Mean Medical [Entitic mass] Corposcular Center by Automated Hemoglobin count </content>29.4 PG<content styleCode="Ital ics"> (26.0-34.0 PG)</content> UNK 0.0 <content Saint styleCode="Bold True ">Nucleated Red Medical Blood Cell Center Count </content>0.00 KCUMM<content styleCode="Ital ics"> (0.0 KCUMM)</content > UNK 0 <content Saint styleCode="Bold True ">Nucleated Red Medical Blood Cell Center </content>0.0 /100<content styleCode="Ital ics"> (0 /100)</content> ID Date Data Source GFR(Creatinine).[id number] 12/18/2019 12:10:00 PM EDT [facility] 0-0400 Name Value Range Interpretation Code Description Data Libra rce(s) Supporting Document(s ) UNK > 60 Below low normal <content [facility] styleCode="Bold"> Medical Cent er EGFR </content>55 GFR L<content styleCode="Italic s"> (> 60 GFR)</content> ID Date Data Source MROUTINECCDA.[id number] 12/18/2019 12:10:00 PM EDT [facility] -0400 Name Value Range Interpretation Description Data Sup porting Code Source(s) Document(s ) UNK 30-110 <content [facility] styleCode="Bold Medical ">Amylase Center </content>70 IU/L<content styleCode="Ital ics"> (30-110 IU/L)</content> Lipase 23-300 <content [facility] [Enzymatic styleCode="Bold Medical activity/vo ">Lipase Center lume] in </content>228 Serum or IU/L<content Plasma styleCode="Ital ics"> (23-300 IU/L)</content> ID Date Data Source [facility].[id number] 12/18/2019 12:10:00 PM EDT [facility] Name Value Range Interpretation Description Data Sup porting Code Source(s) Document(s ) Chloride 98-107 <content [facility] [Moles/volume] in styleCode="Bold"> Vikki phs Serum or Plasma Chloride Medical </content>104 Center MEQ/L<content styleCode="Italic s"> (98-107 MEQ/L)</content> Sodium 137-145 Below low <content [facility] [Moles/volume] in normal styleCode="Bold"> Vikki phs Serum or Plasma Sodium Medical </content>135 Center MEQ/L L<content styleCode="Italic s"> (137-145 MEQ/L)</content> Potassium 3.5-5.3 <content [facility] [Moles/volume] in styleCode="Bold"> Vikki phs Serum or Plasma Potassium Medical </content>4.6 Center MEQ/L<content styleCode="Italic s"> (3.5-5.3 MEQ/L)</content> UNK 9-20 <content [facility] styleCode="Bold"> True BUN </content>20 Medical MG/DL<content Center styleCode="Italic s"> (9-20 MG/DL)</content> Glucose 74-106 <content [facility] [Mass/volume] in styleCode="Bold"> Tomi hs Serum or Plasma Glucose Medical </content>96 Center MG/DL<content styleCode="Italic s"> (74-106 MG/DL)</content> Carbon dioxide, 22-30 <content [facility] total styleCode="Bold"> True [Moles/volume] in Carbon Dioxide Medical Serum or Plasma </content>23 Center MEQ/L<content styleCode="Italic s"> (22-30 MEQ/L)</content> Creatinine 0.5-1.3 Above high <content [facility] [Mass/volume] in normal styleCode="Bold"> Tomi hs Serum or Plasma Creatinine Medical </content>1.4 Center MG/DL H<content styleCode="Italic s"> (0.5-1.3 MG/DL)</content> UNK > 60 Below low <content [facility] normal styleCode="Bold"> True EGFR </content>55 Medical GFR L<content Center styleCode="Italic s"> (> 60 GFR)</content> Aspartate 17-59 <content [facility] aminotransferase styleCode="Bold"> Tomi hs [Enzymatic Aspartate Medical activity/volume] Aminotransferase Center in Serum or Plasma (AST) </content>37 IU/L<content styleCode="Italic s"> (17-59 IU/L)</content> Alanine 7-50 <content [facility] aminotransferase styleCode="Bold"> Tomi hs [Enzymatic Alanine Medical activity/volume] Aminotransferase Center in Serum or Plasma (ALT) </content>46 IU/L<content styleCode="Italic s"> (7-50 IU/L)</content> Calcium 8.4-10. <content [facility] [Mass/volume] in 2 styleCode="Bold"> Tomi hs Serum or Plasma Calcium Medical </content>9.0 Center MG/DL<content styleCode="Italic s"> (8.4-10.2 MG/DL)</content> Bilirubin.total 0.2-1.3 <content [facility] [Mass/volume] in styleCode="Bold"> Tomi hs Serum or Plasma Bilirubin Total Medical </content>0.5 Center MG/DL<content styleCode="Italic s"> (0.2-1.3 MG/DL)</content> Alkaline 38-126 <content Saint phosphatase styleCode="Bold"> [facility] [Enzymatic Alkaline Medical activity/volume] Phosphatase (ALP) Cente r in Serum or Plasma </content>101 IU/L<content styleCode="Italic s"> (38-126 IU/L)</content> Albumin 3.5-5.0 <content Saint [Mass/volume] in styleCode="Bold"> Tomi hs Serum or Plasma Albumin Medical </content>3.8 Center G/DL<content styleCode="Italic s"> (3.5-5.0 G/DL)</content> ID Date Data Source [id number] 12/18/2019 12:00:00 AM EDT [facility] Name Value Range Interpretation Code Description Data Libra rce(s) Supporting Document(s ) 2019-nCoV [facility] RNA XXX MC+probe- Imp This lab was ordered by [facility] and reported by [employer]. ID Date Data Source Urinalysis.[id number] 12/14/2019 02:57:00 PM EDT [facility] 0 Name Value Range Interpretation Description Data Sup porting Code Source(s) Document(s ) Color of Urine YELLOW <content Saint styleCode="Beverly True d">Color, Medical Urine Center </content>MAC GE <content styleCode="Suzi lics"> (YELLOW )</content> Specific 1.015-1.02 <content Saint gravity of 5 styleCode="Beverly Jamess Urine by Test d">Urine Medical strip Specific Center [place] </content>1.02 5 <content styleCode="Suzi lics"> (1.015-1.025 )</content> Ketones NEGATIVE <content Saint [Mass/volume] styleCode="Beverly True in Urine by d">Urine Medical Test strip Ketone Center </content>NEGA TIVE MG/DL<content styleCode="Suzi lics"> (NEGATIVE MG/DL)</conten t> Glucose NEGATIVE <content Saint [Mass/volume] styleCode="Beverly True in Urine by d">Urine Medical Test strip Glucose Center </content>100 MG/DL<content styleCode="Suzi lics"> (NEGATIVE MG/DL)</conten t> UNK CLEAR <content Saint styleCode="Beverly True d">Urine Medical Clarity Center </content>Sl CLOUDY <content styleCode="Suzi lics"> (CLEAR )</content> UNK NEGATIVE <content Saint styleCode="Beverly True d">Urine Medical Bilirubin Center </content>NEGA TIVE <content styleCode="Suzi lics"> (NEGATIVE )</content> pH of Urine by 4.5-8.0 <content Saint Test strip styleCode="Beverly True d">Urine pH Medical </content>6.5 Center <content styleCode="Suzi lics"> (4.5-8.0 )</content> Urobilinogen 0.2-1.0 Above high <content Saint [Units/volume] normal styleCode="Beverly True in Urine by d">Urine Medical Test strip Urobilinogen Center </content>4.0 MG/DL H<content styleCode="Suzi lics"> (0.2-1.0 MG/DL)</conten t> Protein NEGATIVE <content Saint [Mass/volume] styleCode="Beverly True in Urine by d">Urine Medical Test strip Protein Center </content>100 MG/DL<content styleCode="Suzi lics"> (NEGATIVE MG/DL)</conten t> Nitrite NEGATIVE <content Saint [Presence] in styleCode="Beverly Biswas Urine by Test d">Urine Medical strip Nitrite Center </content>POSI TIVE <content styleCode="Suzi lics"> (NEGATIVE )</content> Hemoglobin NEGATIVE <content Saint [Presence] in styleCode="Beverly Biswas Urine by Test d">Urine Blood Medical strip </content>LARG Center E <content styleCode="Suzi lics"> (NEGATIVE )</content> Leukocyte NEGATIVE <content Saint esterase styleCode="Beverly Biswas [Presence] in d">Urine Medical Urine by Test Leukocyte Center strip </content>TRAC E <content styleCode="Suzi lics"> (NEGATIVE )</content> UNK NEGATIVE <content Saint styleCode="Beverly True d">Urine Medical Bacteria Center </content>FEW HPF<content styleCode="Suzi lics"> (NEGATIVE HPF)</content> UNK 0-3 <content Saint styleCode="Beverly True d">Urine White Medical Blood Cell Center </content>3-5 HPF<content styleCode="Suzi lics"> (0-3 HPF)</content> UNK 0-3 <content Saint styleCode="Beverly True d">Urine Red Medical Blood Cell Center </content>100- 200 HPF<content styleCode="Suzi lics"> (0-3 HPF)</content> ID Date Data Source [id number] 12/13/2019 12:00:00 AM EDT [facility]) Name Value Range Interpretation Description Data Sup porting Code Source(s) Document(s ) ORGANISM Abnormal (applies MEDGEN to non-numeric ([place] results) Medical Service) Comment Abnormal (applies MEDGEN [Interpretation] to non-numeric ([place] [facility] Left eye Narrative results) Medical Ophthalmometer Service) ID Date Data Source [id number] 12/13/2019 12:00:00 AM EDT [facility]) Name Value Range Interpretation Description Data Sup porting Code Source(s) Document(s ) GLUCOSE UA 100^mg/dL Normal (applies MEDGEN to non-numeric ([place] results) Medical Service) BILIRUBIN, TOTAL MODERATE Abnormal MEDGEN (applies to ([place] non-numeric Medical results) Service) Ketones TRACE Abnormal MEDGEN [Presence] in (applies to ([place] Blood by Tablet non-numeric Medical results) Service) Specific gravity 1.025 SG Normal (applies MEDGEN of Pericardial units to non-numeric ([place] fluid by results) Medical Refractometry Service) Blood [Presence] LARGE Abnormal MEDGEN in Urine by (applies to ([place] Visual non-numeric Medical results) Service) pH of Lower 6.5 Ph Normal (applies MEDGEN respiratory units to non-numeric ([place] specimen results) Medical Service) Protein 100^mg/dL Normal (applies MEDGEN [Mass/volume[facility] Medical respiratory Service) specimen Urobilinogen 1.0^E.U./dL Normal (applies MEDGEN [Presence] in to non-numeric ([place] Urine by results) Medical Automated test Service) strip Nitrite POSITIVE Abnormal MEDGEN [Presence] in (applies to ([place] Urine by Test non-numeric Medical strip results) Service) Leukocyte TRACE Abnormal MEDGEN esterase (applies to ([place] [Presence] in non-numeric Medical Body fluid by results) Service) Automated test strip Color of BROWN Normal (applies MEDGEN Peritoneal to non-numeric ([place] dialysis fluid results) Medical Service) TRANSPARENCY SL CLOUDY Normal (applies MEDGEN to non-numeric ([place] results) Medical Service) RBC`S >50 Above high MEDGEN normal ([place] Medical Service) WBC`S 6-10 Abnormal MEDGEN (applies to ([place] non-numeric Medical results) Service) Bacteria FEW Abnormal MEDGEN [Presence] in (applies to ([place] Prostatic fluid non-numeric Medical by Light results) Service) microscopy SQUAMOUS FEW Normal (applies MEDGEN EPITHELIAL to non-numeric ([place] results) Medical Service) ID Date Data Source [id number] 12/13/2019 12:00:00 AM EDT [facility] ([facility]) Name Value Range Interpretation Code Description Data Libra rce(s) Supporting Document(s ) REFLEX FOR Abnormal (applies MEDGEN P53 - 1 UNIT to non-numeric ([place] results) Medical Service) ID Date Data Source [id number] 12/13/2019 12:00:00 AM EDT [facility] ([facility]) Name Value Range Interpretation Code Description Data Libra rce(s) Supporting Document(s ) ICTOTEST NEGATIVE Normal (applies to MEDGEN non-numeric ([place] results) Medical Service) ID Date Data Source [id number] 12/01/2019 01:55:00 PM EDT [facility] Name Value Range Interpretation Code Description Data Libra rce(s) Supporting Document(s ) SARS-CoV-2 [facility] Ql MC+probe This lab was ordered by [facility] nd reported by [facility]. ID Date Data Source [id number] 11/22/2019 12:00:00 AM EDT [facility] Name Value Range Interpretation Code Description Data Libra rce(s) Supporting Document(s ) 2019-nCoV [facility] RNA XXX CM+probe- Imp This lab was ordered by [facility] and reported by [employer] [facility]. ID Date Data Source Urinalysis.[id number] 11/20/2019 05:53:00 PM EDT [facility] 0 Name Value Range Interpretation Description Data Sup porting Code Source(s) Document(s ) Color of Urine YELLOW <content Saint styleCode="Beverly True d">Color, Medical Urine Center </content>YELL OW <content styleCode="Suzi lics"> (YELLOW )</content> UNK CLEAR <content Saint styleCode="Beverly True d">Urine Medical Clarity Center </content>RONDA R <content styleCode="Suzi lics"> (CLEAR )</content> Glucose NEGATIVE <content Saint [Mass/volume] styleCode="Beverly True in Urine by d">Urine Medical Test strip Glucose Center </content>NEGA TIVE MG/DL<content styleCode="Suzi lics"> (NEGATIVE MG/DL)</conten t> UNK NEGATIVE <content Saint styleCode="Beverly True d">Urine Medical Bilirubin Center </content>NEGA TIVE <content styleCode="Suzi lics"> (NEGATIVE )</content> Specific 1.015-1.02 <content Saint gravity of 5 styleCode="Beverly True Urine by Test d">Urine Medical strip Specific Center [place] </content>1.01 5 <content styleCode="Suzi lics"> (1.015-1.025 )</content> Ketones NEGATIVE <content Saint [Mass/volume] styleCode="Beverly True in Urine by d">Urine Medical Test strip Ketone Center </content>NEGA TIVE MG/DL<content styleCode="Suzi lics"> (NEGATIVE MG/DL)</conten t> Hemoglobin NEGATIVE <content [facility] [Presence] in styleCode="Beverly Jamess Urine by Test d">Urine Blood Medical strip </content>LARG Center E <content styleCode="Suzi lics"> (NEGATIVE )</content> pH of Urine by 4.5-8.0 Above high <content [facility] Test strip normal styleCode="Beverly True d">Urine pH Medical </content>>= Center 9.0 H<content styleCode="Suzi lics"> (4.5-8.0 )</content> Protein NEGATIVE <content Saint [Mass/volume] styleCode="Beverly True in Urine by d">Urine Medical Test strip Protein Center </content>30 MG/DL<content styleCode="Suzi lics"> (NEGATIVE MG/DL)</conten t> Nitrite NEGATIVE <content [facility] [Presence] in styleCode="Beverly Jamess Urine by Test d">Urine Medical strip Nitrite Center </content>NEGA TIVE <content styleCode="Suzi lics"> (NEGATIVE )</content> Urobilinogen 0.2-1.0 Above high <content [facility] [Units/volume] normal styleCode="Beverly True in Urine by d">Urine Medical Test strip Urobilinogen Center </content>2.0 MG/DL H<content styleCode="Suzi lics"> (0.2-1.0 MG/DL)</conten t> UNK 0-3 <content Saint styleCode="Beverly True d">Urine Red Medical Blood Cell Center </content>100- 200 HPF<content styleCode="Suzi lics"> (0-3 HPF)</content> Leukocyte NEGATIVE <content [facility] esterase styleCode="Beverly True [Presence] in d">Urine Medical Urine by Test Leukocyte Center strip </content>TRAC E <content styleCode="Suzi lics"> (NEGATIVE )</content> UNK 0-3 <content Saint styleCode="Beverly Jamess d">Urine White Medical Blood Cell Center </content>5 - 10 HPF<content styleCode="Suzi lics"> (0-3 HPF)</content> UNK NONE SEEN <content Saint styleCode="Beverly Jamess d">Epithelial Medical Cell Center </content>0-2 HPF<content styleCode="Suzi lics"> (NONE SEEN HPF)</content> ID Date Data Source Liver 11/20/2019 05:53:00 PM EDT [facility] Profile.[id number] Name Value Range Interpretation Description Data Sup porting Code Source(s) Document(s ) Aspartate 17-59 <content [facility] aminotransferase styleCode="Bold"> [facility] [Enzymatic Aspartate Medical activity/volume] Aminotransferase Center in Serum or Plasma (AST) </content>58 IU/L<content styleCode="Italic s"> (17-59 IU/L)</content> Alanine 7-50 <content [facility] aminotransferase styleCode="Bold"> Tomi hs [Enzymatic Alanine Medical activity/volume] Aminotransferase Center in Serum or Plasma (ALT) </content>48 IU/L<content styleCode="Italic s"> (7-50 IU/L)</content> Alkaline 38-126 <content [facility] phosphatase styleCode="Bold"> True [Enzymatic Alkaline Medical activity/volume] Phosphatase (ALP) Cente r in Serum or Plasma </content>114 IU/L<content styleCode="Italic s"> (38-126 IU/L)</content> Bilirubin.total 0.2-1.3 <content [facility] [Mass/volume] in styleCode="Bold"> Tomi hs Serum or Plasma Bilirubin Total Medical </content>0.9 Center MG/DL<content styleCode="Italic s"> (0.2-1.3 MG/DL)</content> Albumin 3.5-5.0 <content [facility] [Mass/volume] in styleCode="Bold"> Tomi hs Serum or Plasma Albumin Medical </content>3.5 Center G/DL<content styleCode="Italic s"> (3.5-5.0 G/DL)</content> ID Date Data Source [id number] 11/20/2019 05:53:00 PM EDT [facility] 0400 Name Value Range Interpretation Description Data Sup porting Code Source(s) Document(s ) Leukocytes 4.4-11.0 <content [facility] [#/volume] in styleCode="Bold True Blood by ">White Blood Medical Automated count Cell Count Center </content>6.78 KCUMM<content styleCode="Ital ics"> (4.4-11.0 KCUMM)</content > Erythrocytes 4.4-5.9 <content [facility] [#/volume] in styleCode="Bold True Blood by ">Red Blood Medical Automated count Cell Count Center </content>4.63 MCUMM<content styleCode="Ital ics"> (4.4-5.9 MCUMM)</content > Hemoglobin 13.5-17. <content [facility] [Mass/volume] in 5 styleCode="Bold True Blood ">Hemoglobin Medical </content>13.7 Center G/DL<content styleCode="Ital ics"> (13.5-17.5 G/DL)</content> Hematocrit 41.0-53. <content [facility] [Volume 0 styleCode="Bold True Fraction] of ">Hematocrit Medical Blood by </content>41.3 Center Automated count %<content styleCode="Ital ics"> (41.0-53.0 %)</content> Erythrocyte mean 80.0-100 <content [facility] corpuscular .0 styleCode="Bold True volume [Entitic ">Mean Medical volume] by Corpuscular Center Automated count Volume </content>89.2 FL<content styleCode="Ital ics"> (80.0-100.0 FL)</content> Erythrocyte mean 26.0-34. <content [facility] corpuscular 0 styleCode="Bold True hemoglobin ">Mean Medical [Entitic mass] Corposcular Center by Automated Hemoglobin count </content>29.6 PG<content styleCode="Ital ics"> (26.0-34.0 PG)</content> Erythrocyte mean 32.0-37. <content [facility] corpuscular 0 styleCode="Bold True hemoglobin ">Mean Corpus. Medical concentration Hgb Center [Mass/volume] by Concentration Automated count (MCHC) </content>33.2 G/DL<content styleCode="Ital ics"> (32.0-37.0 G/DL)</content> Erythrocyte 11.5-14. <content [facility] distribution 5 styleCode="Bold True width [Ratio] by ">Red Cell Medical Automated count Distribution Center Width </content>13.6 %<content styleCode="Ital ics"> (11.5-14.5 %)</content> Platelets 130-400 <content [facility] [#/volume] in styleCode="Bold True Blood by ">Platelet Medical Automated count Count Center </content>132 KCUMM<content styleCode="Ital ics"> (130-400 KCUMM)</content > Platelet mean 8.0-11.0 Above high <content [facility] volume [Entitic normal styleCode="Bold True volume] in Blood ">Mean Platelet Medical by Automated Volume Center count </content>11.1 FL H<content styleCode="Ital ics"> (8.0-11.0 FL)</content> UNK 0 <content [facility] styleCode="Bold True ">Nucleated Red Medical Blood Cell Center </content>0.0 /100<content styleCode="Ital ics"> (0 /100)</content> UNK 0.0 <content [facility] styleCode="Bold True ">Nucleated Red Medical Blood Cell Center Count </content>0.00 KCUMM<content styleCode="Ital ics"> (0.0 KCUMM)</content > ID Date Data Source GFR(Creatinine).[id number] 11/20/2019 05:53:00 PM EDT [facility] 0-0400 Name Value Range Interpretation Code Description Data Libra rce(s) Supporting Document(s ) UNK > 60 <content [facility] styleCode="Bold"> Medical Cent er EGFR </content>65 GFR<content styleCode="Italic s"> (> 60 GFR)</content> ID Date Data Source [id number] 11/20/2019 05:53:00 PM EDT [facility] -0400 Name Value Range Interpretation Description Data Sup porting Code Source(s) Document(s ) UNK NEGATIVE <content [facility] styleCode="Bold True ">Acetone Medical </content>NEGAT Center MONTSE <content styleCode="Ital ics"> (NEGATIVE )</content> UNK >= 1.0 <content [facility] styleCode="Bold True ">AG Ratio Medical </content>1.2 Center <content styleCode="Ital ics"> (>= 1.0 )</content> UNK 2.3-3.5 <content [facility] styleCode="Bold True ">Globulin Medical </content>2.8 Center G/DL<content styleCode="Ital ics"> (2.3-3.5 G/DL)</content> Protein 6.3-8.2 <content [facility] [Mass/volum styleCode="Bold True e] in Serum ">Total Protein Medical or Plasma </content>6.3 Center G/DL<content styleCode="Ital ics"> (6.3-8.2 G/DL)</content> ID Date Data Source [id number] 11/20/2019 05:53:00 PM EDT [facility] Name Value Range Interpretation Description Data Sup porting Code Source(s) Document(s ) Sodium 137-145 <content [facility] [Moles/volume] in styleCode="Bold"> Vikki phs Serum or Plasma Sodium Medical </content>138 Center MEQ/L<content styleCode="Italic s"> (137-145 MEQ/L)</content> Potassium 3.5-5.3 <content [facility] [Moles/volume] in styleCode="Bold"> Vikki phs Serum or Plasma Potassium Medical </content>4.0 Center MEQ/L<content styleCode="Italic s"> (3.5-5.3 MEQ/L)</content> Chloride 98-107 <content [facility] [Moles/volume] in styleCode="Bold"> Vikki phs Serum or Plasma Chloride Medical </content>104 Center MEQ/L<content styleCode="Italic s"> (98-107 MEQ/L)</content> Carbon dioxide, 22-30 <content [facility] total styleCode="Bold"> True [Moles/volume] in Carbon Dioxide Medical Serum or Plasma </content>28 Center MEQ/L<content styleCode="Italic s"> (22-30 MEQ/L)</content> UNK 9-20 <content [facility] styleCode="Bold"> True BUN </content>20 Medical MG/DL<content Center styleCode="Italic s"> (9-20 MG/DL)</content> Glucose 74-106 Above high <content [facility] [Mass/volume] in normal styleCode="Bold"> Tomi hs Serum or Plasma Glucose Medical </content>146 Center MG/DL H<content styleCode="Italic s"> (74-106 MG/DL)</content> Creatinine 0.5-1.3 <content [facility] [Mass/volume] in styleCode="Bold"> Tomi hs Serum or Plasma Creatinine Medical </content>1.2 Center MG/DL<content styleCode="Italic s"> (0.5-1.3 MG/DL)</content> UNK > 60 <content [facility] styleCode="Bold"> True EGFR </content>65 Medical GFR<content Center styleCode="Italic s"> (> 60 GFR)</content> Calcium 8.4-10. <content [facility] [Mass/volume] in 2 styleCode="Bold"> Tomi hs Serum or Plasma Calcium Medical </content>8.9 Center MG/DL<content styleCode="Italic s"> (8.4-10.2 MG/DL)</content> Alanine 7-50 <content [facility] aminotransferase styleCode="Bold"> Tomi hs [Enzymatic Alanine Medical activity/volume] Aminotransferase Center in Serum or Plasma (ALT) </content>48 IU/L<content styleCode="Italic s"> (7-50 IU/L)</content> Aspartate 17-59 <content [facility] aminotransferase styleCode="Bold"> Tomi hs [Enzymatic Aspartate Medical activity/volume] Aminotransferase Center in Serum or Plasma (AST) </content>58 IU/L<content styleCode="Italic s"> (17-59 IU/L)</content> Alkaline 38-126 <content [facility] phosphatase styleCode="Bold"> True [Enzymatic Alkaline Medical activity/volume] Phosphatase (ALP) Cente r in Serum or Plasma </content>114 IU/L<content styleCode="Italic s"> (38-126 IU/L)</content> Bilirubin.total 0.2-1.3 <content [facility] [Mass/volume] in styleCode="Bold"> Tomi hs Serum or Plasma Bilirubin Total Medical </content>0.9 Center MG/DL<content styleCode="Italic s"> (0.2-1.3 MG/DL)</content> Albumin 3.5-5.0 <content [facility] [Mass/volume] in styleCode="Bold"> Tomi hs Serum or Plasma Albumin Medical </content>3.5 Center G/DL<content styleCode="Italic s"> (3.5-5.0 G/DL)</content> ID Date Data Source [id number] 11/12/2019 12:00:00 AM EDT [facility] Name Value Range Interpretation Description Data Sup porting Code Source(s) Document(s ) SARS [facility] Coronavirus 2 This lab [facility] and reported by [facility]. ID Date Data Source [id number] 10/30/2019 12:00:00 AM EDT [facility] ([facility]) Name Value Range Interpretation Code Description Data Libra rce(s) Supporting Document(s ) REFLEX FOR Abnormal (applies [facility] P53 - 1 UNIT to non-numeric ([place] results) Medical Service) ID Date Data Source [id number] 10/30/2019 12:00:00 AM EDT [facility] ([facility]) Name Value Range Interpretation Description Data Sup porting Code Source(s) Document(s ) ORGANISM Abnormal (applies [facility] to non-numeric ([place] results) Medical Service) Comment Abnormal (applies [facility] [Interpretation] to non-numeric ([place] Left eye Narrative results) Medical Ophthalmometer Service) ID Date Data Source [id number] 10/30/2019 12:00:00 AM EDT [facility] ([facility]) Name Value Range Interpretation Code Description Data Libra rce(s) Supporting Document(s ) COV2T Negative Normal (applies to [facility] non-numeric results) ([facility] Service) ID Date Data Source [id number] 10/30/2019 12:00:00 AM EDT [facility] ([facility]) Name Value Range Interpretation Description Data Sup porting Code Source(s) Document(s ) EOSINOPHYL ABSENT Abnormal (applies [facility] COUNT to non-numeric ([place] results) Medical Service) ID Date Data Source [id number] 10/30/2019 12:00:00 AM EDT [facility]) Name Value Range Interpretation Description Data Sup porting Code Source(s) Document(s ) TSH,3RD 1.06 Normal (applies to [facility] GENERATION uIU/mL non-numeric ([place] results) Medical Service) T4 TOTAL 10.8 Normal (applies to [facility] THYROXINE ug/dL non-numeric ([place] results) Medical Service) T3 TOTAL 145 ng/dL Normal (applies to [facility] non-numeric ([place] results) Medical Service) ID Date Data Source [id number] 10/30/2019 12:00:00 AM EDT [facility] ([facility]) Name Value Range Interpretation Description Data Sup porting Code Source(s) Document(s ) PROTHROMBIN 14.2 sec Normal (applies [facility] TIME, PT to non-numeric ([place] results) Medical Service) INR 1.06 Normal (applies [facility] to non-numeric ([place] results) Medical Service) ID Date Data Source [id number] 10/30/2019 12:00:00 AM EDT [facility] ([facility]) Name Value Range Interpretation Description Data Sup porting Code Source(s) Document(s ) VITAMIN D 22.95 Below low normal [facility] 25-HYDROXY ng/mL ([facility]) ID Date Data Source [id number] 10/30/2019 12:00:00 AM EDT [facility]) Name Value Range Interpretation Description Data Sup porting Code Source(s) Document(s ) VITAMIN B12 250 pg/mL Normal (applies to [facility] non-numeric ([place] results) Medical Service) ID Date Data Source [id number] 10/30/2019 12:00:00 AM EDT [facility] ([facility]) Name Value Range Interpretation Description Data Sup porting Code Source(s) Document(s ) FOLATE 16.2 ng/mL Normal (applies to [facility] SERUM non-numeric ([place] results) Medical Service) ID Date Data Source [id number] 10/30/2019 12:00:00 AM EDT [facility] ([facility]) Name Value Range Interpretation Code Description Data Libra rce(s) Supporting Document(s ) APTT 38.60 sec Above high normal [facility] ([place] [facility]) ID Date Data Source [id number] 10/30/2019 12:00:00 AM EDT [facility] ([facility]) Name Value Range Interpretation Description Data Sup porting Code Source(s) Document(s ) Cholesterol 136 Normal (applies [facility] [Moles/volume] mg/dL to non-numeric ([place] in Pericardial results) Medical fluid Service) LDL CALCULATION 81.0 Normal (applies [facility] mg/dL to non-numeric ([place] results) Medical Service) CHOL/HDL RATIO 3.40 Normal (applies [facility] ratio to non-numeric ([place] results) Medical Service) HDL CHOLESTEROL 40 mg/dL Normal (applies [facility] to non-numeric ([place] results) Medical Service) VLDL CALCULATION 15.0 Normal (applies [facility] mg/dl to non-numeric ([place] results) Medical Service) TRIGLYCERIDES 75 mg/dL Normal (applies [facility] to non-numeric ([place] results) Medical Service) ID Date Data Source [id number] 10/30/2019 12:00:00 AM EDT [facility] ([facility]) Name Value Range Interpretation Description Data Sup porting Code Source(s) Document(s ) GLUCOSE UA NEGATIVE Normal (applies [facility] to non-numeric ([place] results) Medical Service) BILIRUBIN, TOTAL NEGATIVE Normal (applies [facility] to non-numeric ([place] results) Medical Service) Ketones NEGATIVE Normal (applies [facility] [Presence] in to non-numeric ([place] Blood by Tablet results) Medical Service) Specific gravity 1.013 SG Normal (applies [facility] of Pericardial units to non-numeric ([place] fluid by results) Medical Refractometry Service) Blood [Presence] SMALL Abnormal [facility] in Urine by (applies to ([place] Visual non-numeric Medical results) Service) pH of Lower 5 Ph units Normal (applies [facility] respiratory to non-numeric ([place] specimen results) Medical Service) Protein NEGATIVE Normal (applies [facility] [Mass/volume] in to non-numeric ([place] Lower results) Medical respiratory Service) specimen Urobilinogen 0-2.0 Normal (applies [facility] [Presence] in to non-numeric ([place] Urine by results) Medical Automated test Service) strip Nitrite NEGATIVE Normal (applies [facility] [Presence] in to non-numeric ([place] Urine by Test results) Medical strip Service) Leukocyte SMALL Abnormal [facility] esterase (applies to ([place] [Presence] in non-numeric Medical Body fluid by results) Service) Automated test strip Color of YELLOW Normal (applies [facility] Peritoneal to non-numeric ([place] dialysis fluid results) Medical Service) TRANSPARENCY CLEAR Normal (applies [facility] to non-numeric ([place] results) Medical Service) RBC`S 3-5 Abnormal [facility] (applies to ([place] non-numeric Medical results) Service) WBC`S 6-10 Abnormal MEDGEN (applies to ([place] non-numeric Medical results) Service) Bacteria FEW Abnormal [facility] [Presence] in (applies to ([place] Prostatic fluid non-numeric Medical by Light results) Service) microscopy MUCOUS FEW Normal (applies [facility] to non-numeric ([place] results) Medical Service) ID Date Data Source [id number] 10/30/2019 12:00:00 AM EDT [facility] ([facility]) Name Value Range Interpretation Description Data Sup porting Code Source(s) Document(s ) WBC 5.1 Normal (applies [facility] 10(3)/uL to non-numeric ([place] results) Medical Service) RBC 4.9 Normal (applies [facility] 10(6)/uL to non-numeric ([place] results) Medical Service) Hemoglobin 14.5 g/dL Normal (applies [facility] [Mass/volume] to non-numeric ([place] in Mixed venous results) Medical blood by Service) Oximetry Hematocrit 43.5 % Normal (applies [facility] [Pure volume to non-numeric ([place] fraction] of results) Medical Blood by Service) Automated count MCV 89.1 fL Normal (applies [facility] to non-numeric ([place] results) Medical Service) MCH 30 pg Normal (applies [facility] to non-numeric ([place] results) Medical Service) MCHC 33 g/dL Normal (applies [facility] to non-numeric ([place] results) Medical Service) RDWSD 42.6 fL Normal (applies [facility] to non-numeric ([place] results) Medical Service) RDWCV 13.3 % Normal (applies [facility] to non-numeric ([place] results) Medical Service) Platelet Count 130 Below low normal [facility] 10(3)/uL ([place] Medical Service) MPV 11.6 fL Normal (applies [facility] to non-numeric ([place] results) Medical Service) Neutrophil Abs 3.63 Normal (applies [facility] 10(3)/uL to non-numeric ([place] results) Medical Service) Lymphocyte Abs 0.63 Normal (applies [facility] 10(3)/uL to non-numeric ([place] results) Medical Service) Monocyte Abs 0.59 Normal (applies [facility] 10(3)/uL to non-numeric ([place] results) Medical Service) Eosinophil Abs 0.25 Normal (applies [facility] 10(3)/uL to non-numeric ([place] results) Medical Service) Basophil Abs 0.02 Normal (applies [facility] 10(3)/uL to non-numeric ([place] results) Medical Service) Immature 0.01 Normal (applies [facility] Granulocyte Abs 10(3)/uL to non-numeric ([place] results) Medical Service) Neutrophil % 70.90 % Normal (applies [facility] to non-numeric ([place] results) Medical Service) Lymphocyte % 12 % Below low normal [facility] ([place] Medical Service) Monocyte % 11.5 % Normal (applies [facility] to non-numeric ([place] results) Medical Service) Eosinophil % 4.9 % Normal (applies [facility] to non-numeric ([place] results) Medical Service) Basophil % 0.4 % Normal (applies [facility] to non-numeric ([place] results) Medical Service) Immature 0.20 % Normal (applies [facility] Granulocyte % to non-numeric ([place] results) Medical Service) NRBC % 0.0 % Normal (applies [facility] to non-numeric ([place] results) Medical Service) NRBC Abs 0.00 Normal (applies [facility] 10(3)/uL to non-numeric ([place] results) Medical Service) ID Date Data Source [id number] 10/30/2019 12:00:00 AM EDT [facility] ([facility]) Name Value Range Interpretation Code Description Data Supporting Source(s) Document(s ) GLYCOMARK 11.38 Normal (applies to [facility] ug/mL non-numeric ([place] results) Medical Service) ID Date Data Source [id number] 10/30/2019 12:00:00 AM EDT [facility] ([facility]) Name Value Range Interpretation Description Data Sup porting Code Source(s) Document(s ) Hemoglobin A1c 6.0 % Above high normal [facility] in Blood ([place] [facility]) ID Date Data Source [id number] 10/30/2019 12:00:00 AM EDT [facility] ([facility]) Name Value Range Interpretation Description Data Sup porting Code Source(s) Document(s ) GLUCOSE 138 Above high normal [facility] NONFASTING,SERUM mg/dL ([place] [facility] Service) SODIUM, SERUM 142 Normal (applies [facility] mEq/L to non-numeric ([place] results) Medical Service) POTASSIUM, SERUM 4.3 Normal (applies [facility] mEq/L to non-numeric ([place] results) Medical Service) CHLORIDE, SERUM 106 Normal (applies [facility] mEq/L to non-numeric ([place] results) Medical Service) Carbon dioxide 24 mEq/L Normal (applies [facility] [VFr/PPres] in to non-numeric ([place] Gas delivery results) Medical system Service) Anion gap in 16 mEq/L Normal (applies [facility] Body fluid to non-numeric ([place] results) Medical Service) BLOOD UREA 18 mg/dL Normal (applies [facility] NITROGEN to non-numeric ([place] results) Medical Service) CREATININE, 1.20 Normal (applies [facility] SERUM mg/dL to non-numeric ([place] results) Medical Service) CALCIUM, SERUM 9.2 Normal (applies [facility] mg/dL to non-numeric ([place] results) Medical Service) TOTAL PROTEIN 7.0 g/dL Normal (applies [facility] to non-numeric ([place] results) Medical Service) Microalbumin 4.1 g/dL Normal (applies [facility] [Mass/time] in to non-numeric ([place] Urine collected results) Medical for unspecified Service) duration Globulin 2.9 gldl Normal (applies [facility] [Mass/time] in to non-numeric ([place] 24 hour Urine results) Medical Service) A/G RATIO 1.41 Normal (applies [facility] g/dl to non-numeric ([place] results) Medical Service) BILIRUBIN, TOTAL 0.8 Normal (applies [facility] mg/dL to non-numeric ([place] results) Medical Service) ALKALINE 97 U/L Normal (applies [facility] PHOSPHATASE, ALP to non-numeric ([place] results) Medical Service) ALT (SGPT) 42 U/L Normal (applies [facility] to non-numeric ([place] results) Medical Service) AST 39 U/L Above high normal [facility] ([place] [facility] Service) EGFR NON AFR 65 Normal (applies MEDGEN ICELANDIC mL/min/1 to non-numeric ([place] .73m2 results) Medical Service) EGFR AFR 79 Normal (applies MED[facility] ICELANDIC mL/min/1 to non-numeric ([place] .73m2 results) Medical Service) ID Date Data Source [id number] 10/30/2019 12:00:00 AM EDT [facility]) Name Value Range Interpretation Code Description Data Libra rce(s) Supporting Document(s ) REFLEX FOR Abnormal (applies [facility] P53 - 1 UNIT to non-numeric ([place] results) Medical Service) ID Date Data Source [id number] 10/30/2019 12:00:00 AM EDT [facility] ([facility]) Name Value Range Interpretation Description Data Sup porting Code Source(s) Document(s ) ORGANISM Abnormal (applies [facility] to non-numeric ([place] results) Medical Service) Comment Abnormal (applies [facility] [Interpretation] to non-numeric ([place] Left eye Narrative results) Medical Ophthalmometer Service) ID Date Data Source [id number] 10/30/2019 12:00:00 AM EDT [facility] ([facility]) Name Value Range Interpretation Code Description Data Libra rce(s) Supporting Document(s ) COV2T Negative Normal (applies to [facility] non-numeric results) ([place] [facility] Service) ID Date Data Source [id number] 10/30/2019 12:00:00 AM EDT [facility] ([facility]) Name Value Range Interpretation Description Data Sup porting Code Source(s) Document(s ) EOSINOPHYL ABSENT Abnormal (applies [facility] COUNT to non-numeric ([place] results) Medical Service) ID Date Data Source [id number] 10/30/2019 12:00:00 AM EDT [facility]) Name Value Range Interpretation Description Data Sup porting Code Source(s) Document(s ) TSH,3RD 1.06 Normal (applies to [facility] GENERATION uIU/mL non-numeric ([place] results) Medical Service) T4 TOTAL 10.8 Normal (applies to [facility] THYROXINE ug/dL non-numeric ([place] results) Medical Service) T3 TOTAL 145 ng/dL Normal (applies to [facility] non-numeric ([place] results) Medical Service) ID Date Data Source [id number] 10/30/2019 12:00:00 AM EDT [facility]) Name Value Range Interpretation Description Data Sup porting Code Source(s) Document(s ) PROTHROMBIN 14.2 sec Normal (applies [facility] TIME, PT to non-numeric ([place] results) Medical Service) INR 1.06 Normal (applies [facility] to non-numeric ([place] results) Medical Service) ID Date Data Source [id number] 10/30/2019 12:00:00 AM EDT [facility] ([facility]) Name Value Range Interpretation Description Data Sup porting Code Source(s) Document(s ) VITAMIN D 22.95 Below low normal [facility] 25-HYDROXY ng/mL ([facility]) ID Date Data Source [id number] 10/30/2019 12:00:00 AM EDT [facility]) Name Value Range Interpretation Description Data Sup porting Code Source(s) Document(s ) VITAMIN B12 250 pg/mL Normal (applies to [facility] non-numeric ([place] results) Medical Service) ID Date Data Source [id number] 10/30/2019 12:00:00 AM EDT [facility]) Name Value Range Interpretation Description Data Sup porting Code Source(s) Document(s ) FOLATE 16.2 ng/mL Normal (applies to [facility] SERUM non-numeric ([place] results) Medical Service) ID Date Data Source [id number] 10/30/2019 12:00:00 AM EDT [facility] ([facility]) Name Value Range Interpretation Code Description Data Libra rce(s) Supporting Document(s ) APTT 38.60 sec Above high normal [facility] ([facility]) ID Date Data Source [id number] 10/30/2019 12:00:00 AM EDT [facility]) Name Value Range Interpretation Description Data Sup porting Code Source(s) Document(s ) Cholesterol 136 Normal (applies [facility] [Moles/volume] mg/dL to non-numeric ([place] in Pericardial results) Medical fluid Service) LDL CALCULATION 81.0 Normal (applies [facility] mg/dL to non-numeric ([place] results) Medical Service) CHOL/HDL RATIO 3.40 Normal (applies [facility] ratio to non-numeric ([place] results) Medical Service) HDL CHOLESTEROL 40 mg/dL Normal (applies [facility] to non-numeric ([place] results) Medical Service) VLDL CALCULATION 15.0 Normal (applies [facility] mg/dl to non-numeric ([place] results) Medical Service) TRIGLYCERIDES 75 mg/dL Normal (applies [facility] to non-numeric ([place] results) Medical Service) ID Date Data Source [id number] 10/30/2019 12:00:00 AM EDT [facility] ([facility] Service) Name Value Range Interpretation Description Data Sup porting Code Source(s) Document(s ) GLUCOSE UA NEGATIVE Normal (applies [facility] to non-numeric ([place] results) Medical Service) BILIRUBIN, TOTAL NEGATIVE Normal (applies [facility] to non-numeric ([place] results) Medical Service) Ketones NEGATIVE Normal (applies [facility] [Presence] in to non-numeric ([place] Blood by Tablet results) Medical Service) Specific gravity 1.013 SG Normal (applies [facility] of Pericardial units to non-numeric ([place] fluid by results) Medical Refractometry Service) Blood [Presence] SMALL Abnormal MEDGEN in Urine by (applies to ([place] Visual non-numeric Medical results) Service) pH of Lower 5 Ph units Normal (applies MEDGEN respiratory to non-numeric ([place] specimen results) Medical Service) Protein NEGATIVE Normal (applies [facility]GEN [Mass/volume] in to non-numeric ([place] Lower results) Medical respiratory Service) specimen Urobilinogen 0-2.0 Normal (applies MEDGEN [Presence] in to non-numeric ([place] Urine by results) Medical Automated test Service) strip Nitrite NEGATIVE Normal (applies MEDGEN [Presence] in to non-numeric ([place] Urine by Test results) Medical strip Service) Leukocyte SMALL Abnormal MEDGEN esterase (applies to ([place] [Presence] in non-numeric Medical Body fluid by results) Service) Automated test strip Color of YELLOW Normal (applies MEDGEN Peritoneal to non-numeric ([place] dialysis fluid results) Medical Service) TRANSPARENCY CLEAR Normal (applies [facility]GEN to non-numeric ([place] results) Medical Service) RBC`S 3-5 Abnormal MEDGEN (applies to ([place] non-numeric Medical results) Service) WBC`S 6-10 Abnormal MEDGEN (applies to ([place] non-numeric Medical results) Service) Bacteria FEW Abnormal MEDGEN [Presence] in (applies to ([place] Prostatic fluid non-numeric Medical by Light results) Service) microscopy MUCOUS FEW Normal (applies MEDGEN to non-numeric ([place] results) Medical Service) ID Date Data Source [id number] 10/30/2019 12:00:00 AM EDT MEDGEN ([facility] Service) Name Value Range Interpretation Description Data Sup porting Code Source(s) Document(s ) WBC 5.1 Normal (applies MEDGEN 10(3)/uL to non-numeric ([place] results) Medical Service) RBC 4.9 Normal (applies [facility]GEN 10(6)/uL to non-numeric ([place] results) Medical Service) Hemoglobin 14.5 g/dL Normal (applies [facility]GEN [Mass/volume] to non-numeric ([place] in Mixed venous results) Medical blood by Service) Oximetry Hematocrit 43.5 % Normal (applies MEDGEN [Pure volume to non-numeric ([place] fraction] of results) Medical Blood by Service) Automated count MCV 89.1 fL Normal (applies MEDGEN to non-numeric ([place] results) Medical Service) MCH 30 pg Normal (applies [facility]GEN to non-numeric ([place] results) Medical Service) MCHC 33 g/dL Normal (applies MEDGEN to non-numeric ([place] results) Medical Service) RDWSD 42.6 fL Normal (applies MEDGEN to non-numeric ([place] results) Medical Service) RDWCV 13.3 % Normal (applies MEDGEN to non-numeric ([place] results) Medical Service) Platelet Count 130 Below low normal MEDGEN 10(3)/uL ([place] Medical Service) MPV 11.6 fL Normal (applies MEDGEN to non-numeric ([place] results) Medical Service) Neutrophil Abs 3.63 Normal (applies MEDGEN 10(3)/uL to non-numeric ([place] results) Medical Service) Lymphocyte Abs 0.63 Normal (applies MEDGEN 10(3)/uL to non-numeric ([place] results) Medical Service) Monocyte Abs 0.59 Normal (applies MEDGEN 10(3)/uL to non-numeric ([place] results) Medical Service) Eosinophil Abs 0.25 Normal (applies MEDGEN 10(3)/uL to non-numeric ([place] results) Medical Service) Basophil Abs 0.02 Normal (applies MEDGEN 10(3)/uL to non-numeric ([place] results) Medical Service) Immature 0.01 Normal (applies MEDGEN Granulocyte Abs 10(3)/uL to non-numeric ([place] results) Medical Service) Neutrophil % 70.90 % Normal (applies MEDGEN to non-numeric ([place] results) Medical Service) Lymphocyte % 12 % Below low normal MEDGEN ([place] [facility]) Monocyte % 11.5 % Normal (applies MEDGEN to non-numeric ([place] results) Medical Service) Eosinophil % 4.9 % Normal (applies [facility]GEN to non-numeric ([place] results) Medical Service) Basophil % 0.4 % Normal (applies MEDGEN to non-numeric ([place] results) Medical Service) Immature 0.20 % Normal (applies MEDGEN Granulocyte % to non-numeric ([place] results) Medical Service) NRBC % 0.0 % Normal (applies MEDGEN to non-numeric ([place] results) Medical Service) NRBC Abs 0.00 Normal (applies MEDGEN 10(3)/uL to non-numeric ([place] results) Medical Service) ID Date Data Source [id number] 10/30/2019 12:00:00 AM EDT MEDGEN ([facility]) Name Value Range Interpretation Code Description Data Supporting Source(s) Document(s ) GLYCOMARK 11.38 Normal (applies to MEDGEN ug/mL non-numeric ([place] results) Medical Service) ID Date Data Source [id number] 10/30/2019 12:00:00 AM EDT MEDGEN ([facility]) Name Value Range Interpretation Description Data Sup porting Code Source(s) Document(s ) Hemoglobin A1c 6.0 % Above high normal MEDGEN in Blood ([place] [facility]) ID Date Data Source [id number] 10/30/2019 12:00:00 AM EDT MEDGEN ([facility] [place]) Name Value Range Interpretation Description Data Sup porting Code Source(s) Document(s ) GLUCOSE 138 Above high normal MEDGEN NONFASTING,SERUM mg/dL ([place] [facility]) SODIUM, SERUM 142 Normal (applies MEDGEN mEq/L to non-numeric ([place] results) Medical Service) POTASSIUM, SERUM 4.3 Normal (applies MEDGEN mEq/L to non-numeric ([place] results) Medical Service) CHLORIDE, SERUM 106 Normal (applies MEDGEN mEq/L to non-numeric ([place] results) Medical Service) Carbon dioxide 24 mEq/L Normal (applies MEDGEN [VFr/PPres] in to non-numeric ([place] Gas delivery results) Medical system Service) Anion gap in 16 mEq/L Normal (applies MEDGEN Body fluid to non-numeric ([place] results) Medical Service) BLOOD UREA 18 mg/dL Normal (applies MEDGEN NITROGEN to non-numeric ([place] results) Medical Service) CREATININE, 1.20 Normal (applies MEDGEN SERUM mg/dL to non-numeric ([place] results) Medical Service) CALCIUM, SERUM 9.2 Normal (applies MEDGEN mg/dL to non-numeric ([place] results) Medical Service) TOTAL PROTEIN 7.0 g/dL Normal (applies MEDGEN to non-numeric ([place] results) Medical Service) Microalbumin 4.1 g/dL Normal (applies MEDGEN [Mass/time] in to non-numeric ([place] Urine collected results) Medical for unspecified Service) duration Globulin 2.9 gldl Normal (applies MEDGEN [Mass/time] in to non-numeric ([place] 24 hour Urine results) Medical Service) A/G RATIO 1.41 Normal (applies MEDGEN g/dl to non-numeric ([place] results) Medical Service) BILIRUBIN, TOTAL 0.8 Normal (applies [facility]GEN mg/dL to non-numeric ([place] results) Medical Service) ALKALINE 97 U/L Normal (applies [facility] PHOSPHATASE, ALP [facility]) ALT (SGPT) 42 U/L Normal (applies MEDGEN to non-numeric ([place] results) Medical Service) AST 39 U/L Above high normal MEDGEN ([place] [facility]) EGFR NON AFR 65 Normal (applies MEDGEN ICELANDIC mL/min/1 to non-numeric ([place] .73m2 results) Medical Service) EGFR AFR 79 Normal (applies MEDGEN ICELANDIC mL/min/1 to non-numeric ([place] .73m2 results) Medical Service) ID Date Data Source [id number] 10/30/2019 12:00:00 AM EDT [facility] ([facility]) Name Value Range Interpretation Code Description Data Libra rce(s) Supporting Document(s ) REFLEX FOR Abnormal (applies MEDGEN P53 - 1 UNIT to non-numeric ([place] results) Medical Service) ID Date Data Source [id number] 10/30/2019 12:00:00 AM EDT [facility] ([facility]) Name Value Range Interpretation Description Data Sup porting Code Source(s) Document(s ) ORGANISM Abnormal (applies MEDGEN to non-numeric ([place] results) Medical Service) Comment Abnormal (applies [facility] [Interpretation] to non-numeric ([place] Left eye Narrative results) Medical Ophthalmometer Service) ID Date Data Source [id number] 10/30/2019 12:00:00 AM EDT [facility] ([facility]) Name Value Range Interpretation Code Description Data Libra rce(s) Supporting Document(s ) COV2T Negative Normal (applies to MEDGEN non-numeric results) ([place] [facility] Service) ID Date Data Source [id number] 10/30/2019 12:00:00 AM EDT [facility] ([facility]) Name Value Range Interpretation Description Data Sup porting Code Source(s) Document(s ) EOSINOPHYL ABSENT Abnormal (applies MEDGEN COUNT to non-numeric ([place] results) Medical Service) ID Date Data Source [id number] 10/30/2019 12:00:00 AM EDT [facility] ([facility]) Name Value Range Interpretation Description Data Sup porting Code Source(s) Document(s ) TSH,3RD 1.06 Normal (applies to MEDGEN GENERATION uIU/mL non-numeric ([place] results) Medical Service) T4 TOTAL 10.8 Normal (applies to [facility] THYROXINE ug/dL non-numeric ([place] results) Medical Service) T3 TOTAL 145 ng/dL Normal (applies to MEDGEN non-numeric ([place] results) Medical Service) ID Date Data Source [id number] 10/30/2019 12:00:00 AM EDT [facility] ([facility]) Name Value Range Interpretation Description Data Sup porting Code Source(s) Document(s ) PROTHROMBIN 14.2 sec Normal (applies MEDGEN TIME, PT to non-numeric ([place] results) Medical Service) INR 1.06 Normal (applies [facility]GEN to non-numeric ([place] results) Medical Service) ID Date Data Source [id number] 10/30/2019 12:00:00 AM EDT [facility] ([facility]) Name Value Range Interpretation Description Data Sup porting Code Source(s) Document(s ) VITAMIN D 22.95 Below low normal MEDGEN 25-HYDROXY ng/mL ([place] Service) ID Date Data Source [id number] 10/30/2019 12:00:00 AM EDT MEDGEN ([facility] Service) Name Value Range Interpretation Description Data Sup porting Code Source(s) Document(s ) VITAMIN B12 250 pg/mL Normal (applies to MEDGEN non-numeric ([place] results) Medical Service) ID Date Data Source [id number] 10/30/2019 12:00:00 AM EDT MEDGEN ([facility] Service) Name Value Range Interpretation Description Data Sup porting Code Source(s) Document(s ) FOLATE 16.2 ng/mL Normal (applies to MEDGEN SERUM non-numeric ([place] results) Medical Service) ID Date Data Source [id number] 10/30/2019 12:00:00 AM EDT MEDGEN ([facility]) Name Value Range Interpretation Code Description Data Libra rce(s) Supporting Document(s ) APTT 38.60 sec Above high normal MEDGEN ([place] [facility]) ID Date Data Source [id number] 10/30/2019 12:00:00 AM EDT MEDGEN ([facility]) Name Value Range Interpretation Description Data Sup porting Code Source(s) Document(s ) Cholesterol 136 Normal (applies MEDGEN [Moles/volume] mg/dL to non-numeric ([place] in Pericardial results) Medical fluid Service) LDL CALCULATION 81.0 Normal (applies MEDGEN mg/dL to non-numeric ([place] results) Medical Service) CHOL/HDL RATIO 3.40 Normal (applies MEDGEN ratio to non-numeric ([place] results) Medical Service) HDL CHOLESTEROL 40 mg/dL Normal (applies MEDGEN to non-numeric ([place] results) Medical Service) VLDL CALCULATION 15.0 Normal (applies MEDGEN mg/dl to non-numeric ([place] results) Medical Service) TRIGLYCERIDES 75 mg/dL Normal (applies MEDGEN to non-numeric ([place] results) Medical Service) ID Date Data Source [id number] 10/30/2019 12:00:00 AM EDT MEDGEN ([facility]) Name Value Range Interpretation Description Data Sup porting Code Source(s) Document(s ) GLUCOSE UA NEGATIVE Normal (applies MEDGEN to non-numeric ([place] results) Medical Service) BILIRUBIN, TOTAL NEGATIVE Normal (applies [facility]GEN to non-numeric ([place] results) Medical Service) Ketones NEGATIVE Normal (applies MEDGEN [Presence] in to non-numeric ([place] Blood by Tablet results) Medical Service) Specific gravity 1.013 SG Normal (applies MEDGEN of Pericardial units to non-numeric ([place] fluid by results) Medical Refractometry Service) Blood [Presence] SMALL Abnormal MEDGEN in Urine by (applies to ([place] Visual non-numeric Medical results) Service) pH of Lower 5 Ph units Normal (applies MEDGEN respiratory to non-numeric ([place] specimen results) Medical Service) Protein NEGATIVE Normal (applies [facility]GEN [Mass/volume] in to non-numeric [facility] Medical respiratory Service) specimen Urobilinogen 0-2.0 Normal (applies MEDGEN [Presence] in to non-numeric ([place] Urine by results) Medical Automated test Service) strip Nitrite NEGATIVE Normal (applies MEDGEN [Presence] in to non-numeric ([place] Urine by Test results) Medical strip Service) Leukocyte SMALL Abnormal MEDGEN esterase (applies to ([place] [Presence] in non-numeric Medical Body fluid by results) Service) Automated test strip Color of YELLOW Normal (applies MEDGEN Peritoneal to non-numeric ([place] dialysis fluid results) Medical Service) TRANSPARENCY CLEAR Normal (applies MEDGEN to non-numeric ([place] results) Medical Service) RBC`S 3-5 Abnormal MEDGEN (applies to ([place] non-numeric Medical results) Service) WBC`S 6-10 Abnormal MEDGEN (applies to ([place] non-numeric Medical results) Service) Bacteria FEW Abnormal MEDGEN [Presence] in (applies to ([place] Prostatic fluid non-numeric Medical by Light results) Service) microscopy MUCOUS FEW Normal (applies MEDGEN to non-numeric ([place] results) Medical Service) ID Date Data Source [id number] 10/30/2019 12:00:00 AM EDT MEDGEN ([facility] Service) Name Value Range Interpretation Description Data Sup porting Code Source(s) Document(s ) WBC 5.1 Normal (applies MEDGEN 10(3)/uL to non-numeric ([place] results) Medical Service) RBC 4.9 Normal (applies MEDGEN 10(6)/uL to non-numeric ([place] results) Medical Service) Hemoglobin 14.5 g/dL Normal (applies MEDGEN [Mass/volume] to non-numeric ([place] in Mixed venous results) Medical blood by Service) Oximetry Hematocrit 43.5 % Normal (applies MEDGEN [Pure volume to non-numeric ([place] fraction] of results) Medical Blood by Service) Automated count MCV 89.1 fL Normal (applies MEDGEN to non-numeric ([place] results) Medical Service) MCH 30 pg Normal (applies MEDGEN to non-numeric ([place] results) Medical Service) MCHC 33 g/dL Normal (applies MEDGEN to non-numeric ([place] results) Medical Service) RDWSD 42.6 fL Normal (applies MEDGEN to non-numeric ([place] results) Medical Service) RDWCV 13.3 % Normal (applies MEDGEN to non-numeric ([place] results) Medical Service) Platelet Count 130 Below low normal MEDGEN 10(3)/uL ([place] [facility] Service) MPV 11.6 fL Normal (applies MEDGEN to non-numeric ([place] results) Medical Service) Neutrophil Abs 3.63 Normal (applies MEDGEN 10(3)/uL to non-numeric ([place] results) Medical Service) Lymphocyte Abs 0.63 Normal (applies MEDGEN 10(3)/uL to non-numeric ([place] results) Medical Service) Monocyte Abs 0.59 Normal (applies MEDGEN 10(3)/uL to non-numeric ([place] results) Medical Service) Eosinophil Abs 0.25 Normal (applies MEDGEN 10(3)/uL to non-numeric ([place] results) Medical Service) Basophil Abs 0.02 Normal (applies MEDGEN 10(3)/uL to non-numeric ([place] results) Medical Service) Immature 0.01 Normal (applies MEDGEN Granulocyte Abs 10(3)/uL to non-numeric ([place] results) Medical Service) Neutrophil % 70.90 % Normal (applies MEDGEN to non-numeric ([place] results) Medical Service) Lymphocyte % 12 % Below low normal MEDGEN ([place] [facility] Service) Monocyte % 11.5 % Normal (applies MEDGEN to non-numeric ([place] results) Medical Service) Eosinophil % 4.9 % Normal (applies MEDGEN to non-numeric ([place] results) Medical Service) Basophil % 0.4 % Normal (applies MEDGEN to non-numeric ([place] results) Medical Service) Immature 0.20 % Normal (applies MEDGEN Granulocyte % to non-numeric ([place] results) Medical Service) NRBC % 0.0 % Normal (applies MEDGEN to non-numeric ([place] results) Medical Service) NRBC Abs 0.00 Normal (applies MEDGEN 10(3)/uL to non-numeric ([place] results) Medical Service) ID Date Data Source [id number] 10/30/2019 12:00:00 AM EDT MEDGEN ([facility]) Name Value Range Interpretation Code Description Data Supporting Source(s) Document(s ) GLYCOMARK 11.38 Normal (applies to MEDGEN ug/mL non-numeric ([place] results) Medical Service) ID Date Data Source [id number] 10/30/2019 12:00:00 AM EDT MEDGEN ([facility]) Name Value Range Interpretation Description Data Sup porting Code Source(s) Document(s ) Hemoglobin A1c 6.0 % Above high normal MEDGEN in Blood ([place] [facility]) ID Date Data Source [id number] 10/30/2019 12:00:00 AM EDT MEDGEN ([facility]) Name Value Range Interpretation Description Data Sup porting Code Source(s) Document(s ) GLUCOSE 138 Above high normal MEDGEN NONFASTING,SERUM mg/dL ([place] [facility] Service) SODIUM, SERUM 142 Normal (applies MEDGEN mEq/L to non-numeric ([place] results) Medical Service) POTASSIUM, SERUM 4.3 Normal (applies MEDGEN mEq/L to non-numeric ([place] results) Medical Service) CHLORIDE, SERUM 106 Normal (applies MEDGEN mEq/L to non-numeric ([place] results) Medical Service) Carbon dioxide 24 mEq/L Normal (applies MEDGEN [VFr/PPres] in to non-numeric ([place] Gas delivery results) Medical system Service) Anion gap in 16 mEq/L Normal (applies MEDGEN Body fluid to non-numeric ([place] results) Medical Service) BLOOD UREA 18 mg/dL Normal (applies MEDGEN NITROGEN to non-numeric ([place] results) Medical Service) CREATININE, 1.20 Normal (applies MEDGEN SERUM mg/dL to non-numeric ([place] results) Medical Service) CALCIUM, SERUM 9.2 Normal (applies MEDGEN mg/dL to non-numeric ([place] results) Medical Service) TOTAL PROTEIN 7.0 g/dL Normal (applies MEDGEN to non-numeric ([place] results) Medical Service) Microalbumin 4.1 g/dL Normal (applies MEDGEN [Mass/time] in to non-numeric ([place] Urine collected results) Medical for unspecified Service) duration Globulin 2.9 gldl Normal (applies MEDGEN [Mass/time] in to non-numeric ([place] 24 hour Urine results) Medical Service) A/G RATIO 1.41 Normal (applies MEDGEN g/dl to non-numeric ([place] results) Medical Service) BILIRUBIN, TOTAL 0.8 Normal (applies MEDGEN mg/dL to non-numeric ([place] results) Medical Service) ALKALINE 97 U/L Normal (applies MEDGEN PHOSPHATASE, ALP to non-numeric ([place] results) Medical Service) ALT (SGPT) 42 U/L Normal (applies MEDGEN to non-numeric ([place] results) Medical Service) AST 39 U/L Above high normal MEDGEN ([place] [facility]) EGFR NON AFR 65 Normal (applies MEDGEN ICELANDIC mL/min/1 to non-numeric ([place] .73m2 results) Medical Service) EGFR AFR 79 Normal (applies MEDGEN ICELANDIC mL/min/1 to non-numeric ([place] .73m2 results) Medical Service) ID Date Data Source [id number] 10/30/2019 12:00:00 AM EDT MEDGEN ([facility] Service) Name Value Range Interpretation Code Description Data Libra rce(s) Supporting Document(s ) REFLEX FOR Abnormal (applies MEDGEN P53 - 1 UNIT to non-numeric ([place] results) Medical Service) ID Date Data Source [id number] 10/30/2019 12:00:00 AM EDT [facility] ([facility]) Name Value Range Interpretation Description Data Sup porting Code Source(s) Document(s ) ORGANISM Abnormal (applies MEDGEN to non-numeric ([place] results) Medical Service) Comment Abnormal (applies MED[facility] [Interpretation] to non-numeric [facility]) Medical Ophthalmometer Service) ID Date Data Source [id number] 10/30/2019 12:00:00 AM EDT [facility] ([facility]) Name Value Range Interpretation Code Description Data Libra rce(s) Supporting Document(s ) COV2T Negative Normal (applies to MEDGEN non-numeric results) ([place] [facility] Service) ID Date Data Source [id number] 10/30/2019 12:00:00 AM EDT [facility] ([facility]) Name Value Range Interpretation Description Data Sup porting Code Source(s) Document(s ) EOSINOPHYL ABSENT Abnormal (applies MEDGEN COUNT to non-numeric ([place] results) Medical Service) ID Date Data Source [id number] 10/30/2019 12:00:00 AM EDT [facility] ([facility]) Name Value Range Interpretation Description Data Sup porting Code Source(s) Document(s ) TSH,3RD 1.06 Normal (applies to [facility] GENERATION uIU/mL non-numeric ([place] results) Medical Service) T4 TOTAL 10.8 Normal (applies to [facility]GEN THYROXINE ug/dL non-numeric ([place] results) Medical Service) T3 TOTAL 145 ng/dL Normal (applies to MEDGEN non-numeric ([place] results) Medical Service) ID Date Data Source [id number] 10/30/2019 12:00:00 AM EDT [facility] ([facility]) Name Value Range Interpretation Description Data Sup porting Code Source(s) Document(s ) PROTHROMBIN 14.2 sec Normal (applies MEDGEN TIME, PT to non-numeric ([place] results) Medical Service) INR 1.06 Normal (applies MEDGEN to non-numeric ([place] results) Medical Service) ID Date Data Source [id number] 10/30/2019 12:00:00 AM EDT [facility] ([facility]) Name Value Range Interpretation Description Data Sup porting Code Source(s) Document(s ) VITAMIN D 22.95 Below low normal MED[facility] 25-HYDROXY ng/mL ([facility] Service) ID Date Data Source [id number] 10/30/2019 12:00:00 AM EDT [facility] ([facility]) Name Value Range Interpretation Description Data Sup porting Code Source(s) Document(s ) VITAMIN B12 250 pg/mL Normal (applies to MEDGEN non-numeric ([place] results) Medical Service) ID Date Data Source [id number] 10/30/2019 12:00:00 AM EDT [facility] ([facility]) Name Value Range Interpretation Description Data Sup porting Code Source(s) Document(s ) FOLATE 16.2 ng/mL Normal (applies to MEDGEN SERUM non-numeric ([place] results) Medical Service) ID Date Data Source [id number] 10/30/2019 12:00:00 AM EDT MEDGEN ([facility] Service) Name Value Range Interpretation Code Description Data Libra rce(s) Supporting Document(s ) APTT 38.60 sec Above high normal MEDGEN ([place] [facility]) ID Date Data Source [id number] 10/30/2019 12:00:00 AM EDT [facility] ([facility] [place] [facility]) Name Value Range Interpretation Description Data Sup porting Code Source(s) Document(s ) Cholesterol 136 Normal (applies MEDGEN [Moles/volume] mg/dL to non-numeric ([place] in Pericardial results) Medical fluid Service) LDL CALCULATION 81.0 Normal (applies MEDGEN mg/dL to non-numeric ([place] results) Medical Service) CHOL/HDL RATIO 3.40 Normal (applies MEDGEN ratio to non-numeric ([place] results) Medical Service) HDL CHOLESTEROL 40 mg/dL Normal (applies MEDGEN to non-numeric ([place] results) Medical Service) VLDL CALCULATION 15.0 Normal (applies MEDGEN mg/dl to non-numeric ([place] results) Medical Service) TRIGLYCERIDES 75 mg/dL Normal (applies MEDGEN to non-numeric ([place] results) Medical Service) ID Date Data Source [id number] 10/30/2019 12:00:00 AM EDT MEDGEN ([facility]) Name Value Range Interpretation Description Data Sup porting Code Source(s) Document(s ) GLUCOSE UA NEGATIVE Normal (applies MEDGEN to non-numeric ([place] results) Medical Service) BILIRUBIN, TOTAL NEGATIVE Normal (applies MEDGEN to non-numeric ([place] results) Medical Service) Ketones NEGATIVE Normal (applies MEDGEN [Presence] in to non-numeric ([place] Blood by Tablet results) Medical Service) Specific gravity 1.013 SG Normal (applies MEDGEN of Pericardial units to non-numeric ([place] fluid by results) Medical Refractometry Service) Blood [Presence] SMALL Abnormal MEDGEN in Urine by (applies to ([place] Visual non-numeric Medical results) Service) pH of Lower 5 Ph units Normal (applies MEDGEN respiratory to non-numeric ([place] specimen results) Medical Service) Protein NEGATIVE Normal (applies MEDGEN [Mass/volume] in to non-numeric ([place] Lower results) Medical respiratory Service) specimen Urobilinogen 0-2.0 Normal (applies MEDGEN [Presence] in to non-numeric ([place] Urine by results) Medical Automated test Service) strip Nitrite NEGATIVE Normal (applies MEDGEN [Presence] in to non-numeric ([place] Urine by Test results) Medical strip Service) Leukocyte SMALL Abnormal MEDGEN esterase (applies to ([place] [Presence] in non-numeric Medical Body fluid by results) Service) Automated test strip Color of YELLOW Normal (applies MEDGEN Peritoneal to non-numeric ([place] dialysis fluid results) Medical Service) TRANSPARENCY CLEAR Normal (applies MEDGEN to non-numeric ([place] results) Medical Service) RBC`S 3-5 Abnormal MEDGEN (applies to ([place] non-numeric Medical results) Service) WBC`S 6-10 Abnormal MEDGEN (applies to ([place] non-numeric Medical results) Service) Bacteria FEW Abnormal MEDGEN [Presence] in (applies to ([place] Prostatic fluid non-numeric Medical by Light results) Service) microscopy MUCOUS FEW Normal (applies MEDGEN to non-numeric ([place] results) Medical Service) ID Date Data Source [id number] 10/30/2019 12:00:00 AM EDT MEDGEN ([facility] Medical Service) Name Value Range Interpretation Description Data Sup porting Code Source(s) Document(s ) WBC 5.1 Normal (applies MEDGEN 10(3)/uL to non-numeric ([place] results) Medical Service) RBC 4.9 Normal (applies MEDGEN 10(6)/uL to non-numeric ([place] results) Medical Service) Hemoglobin 14.5 g/dL Normal (applies MEDGEN [Mass/volume] to non-numeric ([place] in Mixed venous results) Medical blood by Service) Oximetry Hematocrit 43.5 % Normal (applies MEDGEN [Pure volume to non-numeric ([place] fraction] of results) Medical Blood by Service) Automated count MCV 89.1 fL Normal (applies MEDGEN to non-numeric ([place] results) Medical Service) MCH 30 pg Normal (applies MEDGEN to non-numeric ([place] results) Medical Service) MCHC 33 g/dL Normal (applies MEDGEN to non-numeric ([place] results) Medical Service) RDWSD 42.6 fL Normal (applies MEDGEN to non-numeric ([place] results) Medical Service) RDWCV 13.3 % Normal (applies MEDGEN to non-numeric ([place] results) Medical Service) Platelet Count 130 Below low normal MEDGEN 10(3)/uL ([place] [facility] Service) MPV 11.6 fL Normal (applies MEDGEN to non-numeric ([place] results) Medical Service) Neutrophil Abs 3.63 Normal (applies MEDGEN 10(3)/uL to non-numeric ([place] results) Medical Service) Lymphocyte Abs 0.63 Normal (applies MEDGEN 10(3)/uL to non-numeric ([place] results) Medical Service) Monocyte Abs 0.59 Normal (applies MEDGEN 10(3)/uL to non-numeric ([place] results) Medical Service) Eosinophil Abs 0.25 Normal (applies MEDGEN 10(3)/uL to non-numeric ([place] results) Medical Service) Basophil Abs 0.02 Normal (applies MEDGEN 10(3)/uL to non-numeric ([place] results) Medical Service) Immature 0.01 Normal (applies MEDGEN Granulocyte Abs 10(3)/uL to non-numeric ([place] results) Medical Service) Neutrophil % 70.90 % Normal (applies MEDGEN to non-numeric ([place] results) Medical Service) Lymphocyte % 12 % Below low normal MEDGEN ([place] Service) Monocyte % 11.5 % Normal (applies MEDGEN to non-numeric ([place] results) Medical Service) Eosinophil % 4.9 % Normal (applies MEDGEN to non-numeric ([place] results) Medical Service) Basophil % 0.4 % Normal (applies MEDGEN to non-numeric ([place] results) Medical Service) Immature 0.20 % Normal (applies MEDGEN Granulocyte % to non-numeric ([place] results) Medical Service) NRBC % 0.0 % Normal (applies MEDGEN to non-numeric ([place] results) Medical Service) NRBC Abs 0.00 Normal (applies MEDGEN 10(3)/uL to non-numeric ([place] results) Medical Service) ID Date Data Source [id number] 10/30/2019 12:00:00 AM EDT [facility] ([facility]) Name Value Range Interpretation Code Description Data Supporting Source(s) Document(s ) GLYCOMARK 11.38 Normal (applies to MEDGEN ug/mL non-numeric ([place] results) Medical Service) ID Date Data Source [id number] 10/30/2019 12:00:00 AM EDT [facility] ([facility]) Name Value Range Interpretation Description Data Sup porting Code Source(s) Document(s ) Hemoglobin A1c 6.0 % Above high normal MEDGEN in Blood ([place] [facility] Service) ID Date Data Source [id number] 10/30/2019 12:00:00 AM EDT MEDGEN ([facility]) Name Value Range Interpretation Description Data Sup porting Code Source(s) Document(s ) GLUCOSE 138 Above high normal MEDGEN NONFASTING,SERUM mg/dL ([place] [facility]) SODIUM, SERUM 142 Normal (applies MEDGEN mEq/L to non-numeric ([place] results) Medical Service) POTASSIUM, SERUM 4.3 Normal (applies MEDGEN mEq/L to non-numeric ([place] results) Medical Service) CHLORIDE, SERUM 106 Normal (applies MEDGEN mEq/L to non-numeric ([place] results) Medical Service) Carbon dioxide 24 mEq/L Normal (applies MEDGEN [VFr/PPres] in to non-numeric ([place] [employer] results) Medical system Service) Anion gap in 16 mEq/L Normal (applies MEDGEN Body fluid to non-numeric ([place] results) Medical Service) BLOOD UREA 18 mg/dL Normal (applies MEDGEN NITROGEN to non-numeric ([facility]) Medical Service) CREATININE, 1.20 Normal (applies MEDGEN SERUM mg/dL to non-numeric ([facility]) Medical Service) CALCIUM, SERUM 9.2 Normal (applies MEDGEN mg/dL to non-numeric ([place] results) Medical Service) TOTAL PROTEIN 7.0 g/dL Normal (applies MEDGEN to non-numeric ([place] results) Medical Service) Microalbumin 4.1 g/dL Normal (applies MEDGEN [Mass/time] in to non-numeric ([place] Urine collected results) Medical for unspecified Service) duration Globulin 2.9 gldl Normal (applies MEDGEN [Mass/time] in to non-numeric ([place] 24 hour Urine results) Medical Service) A/G RATIO 1.41 Normal (applies MEDGEN g/dl to non-numeric ([place] results) Medical Service) BILIRUBIN, TOTAL 0.8 Normal (applies MEDGEN mg/dL to non-numeric ([place] results) Medical Service) ALKALINE 97 U/L Normal (applies MEDGEN PHOSPHATASE, ALP to non-numeric ([facility] y results) Medical Service) ALT (SGPT) 42 U/L Normal (applies MEDGEN to non-numeric ([place] results) Medical Service) AST 39 U/L Above high normal MEDGEN ([place] [facility] Service) EGFR NON AFR 65 Normal (applies MEDGEN ICELANDIC mL/min/1 to non-numeric ([place] .73m2 results) Medical Service) EGFR AFR 79 Normal (applies MEDGEN ICELANDIC mL/min/1 to non-numeric ([place] .73m2 results) Medical Service) ID Date Data Source [facility][id number] 09/19/2019 03:56:00 PM EDT [facility] -0400 Name Value Range Interpretation Description Data Sup porting Code Source(s) Document(s ) Lactate 0.7-2.0 Above upper panic <content [facility] [Mass/volum limits styleCode="Bold Medical e] in Serum ">Lactic Acid Center or Plasma </content><cont ent styleCode="Bold ">3.0 MMOLL HH</content><co ntent styleCode="Ital ics"> (0.7-2.0 MMOLL)</content > ID Date Data Source MRRUSTINECCDA.[id number] 09/19/2019 03:50:00 PM EDT [facility] -0400 Name Value Range Interpretation Description Data Sup porting Code Source(s) Document(s ) Cannabinoids <content [facility] [Presence] in styleCode="Beverly [facility] Urine by Screen d">Cannabinoid Medical method >50 ng/mL s Center </content>NEGA TIVE NG/ML (Reference Range: not available)<br/ > ID Date Data Source Liver 09/19/2019 03:20:00 PM EDT [facility] Profile.[id number] Name Value Range Interpretation Description Data Sup porting Code Source(s) Document(s ) Alkaline 38-126 <content [facility] phosphatase styleCode="Bold"> True [Enzymatic Alkaline Medical activity/volume] Phosphatase (ALP) Cente r in Serum or Plasma </content>74 IU/L<content styleCode="Italic s"> (38-126 IU/L)</content> Alanine 7-50 Above high <content [facility] aminotransferase normal styleCode="Bold"> [facility] hs [Enzymatic Alanine Medical activity/volume] Aminotransferase Center in Serum or Plasma (ALT) </content>172 IU/L H<content styleCode="Italic s"> (7-50 IU/L)</content> Aspartate 17-59 Above high <content [facility] aminotransferase normal styleCode="Bold"> [place] hs [Enzymatic Aspartate Medical activity/volume] Aminotransferase Center in Serum or Plasma (AST) </content>79 IU/L H<content styleCode="Italic s"> (17-59 IU/L)</content> Bilirubin.total 0.2-1.3 Above high <content Saint [Mass/volume] in normal styleCode="Bold"> [facility] hs Serum or Plasma Bilirubin Total Medical </content>2.0 Center MG/DL H<content styleCode="Italic s"> (0.2-1.3 MG/DL)</content> Albumin 3.5-5.0 <content [facility] [Mass/volume] in styleCode="Bold"> [facility] hs Serum or Plasma Albumin Medical </content>3.8 Center G/DL<content styleCode="Italic s"> (3.5-5.0 G/DL)</content> UNK 0.0-0.3 <content Saint styleCode="Bold"> [facility] Bilirubin, Direct Medical </content>< 0.2 Center MG/DL<content styleCode="Italic s"> (0.0-0.3 MG/DL)</content> ID Date Data Source HematologyRou.[id number] 09/19/2019 03:20:00 PM EDT [facility] 0400 Name Value Range Interpretation Description Data Sup porting Code Source(s) Document(s ) Leukocytes 4.4-11.0 <content Saint [#/volume] in styleCode="Bold True Blood by ">White Blood Medical Automated count Cell Count Center </content>7.99 KCUMM<content styleCode="Ital ics"> (4.4-11.0 KCUMM)</content > Erythrocyte mean 26.0-34. <content [facility] corpuscular 0 styleCode="Bold True hemoglobin ">Mean Medical [Entitic mass] Corposcular Center by Automated Hemoglobin count </content>30.1 PG<content styleCode="Ital ics"> (26.0-34.0 PG)</content> Erythrocyte mean 80.0-100 <content [facility] corpuscular .0 styleCode="Bold True volume [Entitic ">Mean Medical volume] by Corpuscular Center Automated count Volume </content>89.7 FL<content styleCode="Ital ics"> (80.0-100.0 FL)</content> Erythrocytes 4.4-5.9 <content Saint [#/volume] in styleCode="Bold True Blood by ">Red Blood Medical Automated count Cell Count Center </content>5.15 MCUMM<content styleCode="Ital ics"> (4.4-5.9 MCUMM)</content > Hematocrit 41.0-53. <content Saint [Volume 0 styleCode="Bold True Fraction] of ">Hematocrit Medical Blood by </content>46.2 Center Automated count %<content styleCode="Ital ics"> (41.0-53.0 %)</content> Hemoglobin 13.5-17. <content Saint [Mass/volume] in 5 styleCode="Bold True Blood ">Hemoglobin Medical </content>15.5 Center G/DL<content styleCode="Ital ics"> (13.5-17.5 G/DL)</content> Platelets 130-400 Below low normal <content Saint [#/volume] in styleCode="Bold True Blood by ">Platelet Medical Automated count Count Center </content>78 KCUMM L<content styleCode="Ital ics"> (130-400 KCUMM)</content > UNK 0 <content Saint styleCode="Bold True ">Nucleated Red Medical Blood Cell Center </content>0.0 /100<content styleCode="Ital ics"> (0 /100)</content> Erythrocyte 11.5-14. <content Saint distribution 5 styleCode="Bold True width [Ratio] by ">Red Cell Medical Automated count Distribution Center Width </content>13.8 %<content styleCode="Ital ics"> (11.5-14.5 %)</content> Erythrocyte mean 32.0-37. <content [facility] corpuscular 0 styleCode="Bold True hemoglobin ">Mean Corpus. Medical concentration Hgb Center [Mass/volume] by Concentration Automated count (MCHC) </content>33.5 G/DL<content styleCode="Ital ics"> (32.0-37.0 G/DL)</content> Platelet mean 8.0-11.0 Above high <content Saint volume [Entitic normal styleCode="Bold True volume] in Blood ">Mean Platelet Medical by Automated Volume Center count </content>11.6 FL H<content styleCode="Ital ics"> (8.0-11.0 FL)</content> UNK 1.6-7.1 <content Saint styleCode="Bold True ">Immature Medical Platelet Center Fraction </content>6.7 %<content styleCode="Ital ics"> (1.6-7.1 %)</content> UNK 0.0 <content Saint styleCode="Bold True ">Nucleated Red Medical Blood Cell Center Count </content>0.00 KCUMM<content styleCode="Ital ics"> (0.0 KCUMM)</content > ID Date Data Source GFR(Creatinine).[id number] 09/19/2019 03:20:00 PM EDT [facility] 0-0400 Name Value Range Interpretation Code Description Data Libra rce(s) Supporting Document(s ) UNK > 60 <content [facility] styleCode="Bold"> Medical Cent er EGFR </content>72 GFR<content styleCode="Italic s"> (> 60 GFR)</content> ID Date Data Source CHMROUTINECCDA.[id number] 09/19/2019 03:20:00 PM EDT [facility] -0400 Name Value Range Interpretation Description Data Sup porting Code Source(s) Document(s ) Lipase 23-300 <content [facility] [Enzymatic styleCode="Bold Medical activity/vo ">Lipase Center lume] in </content>26 Serum or IU/L<content Plasma styleCode="Ital ics"> (23-300 IU/L)</content> UNK 30-110 <content [facility] styleCode="Bold Medical ">Amylase Center </content>59 IU/L<content styleCode="Ital ics"> (30-110 IU/L)</content> ID Date Data Source CardiacMarkers.[id number] 09/19/2019 03:20:00 PM EDT [facility] -0400 Name Value Range Interpretation Description Data Sup porting Code Source(s) Document(s ) Troponin < 0.034 <content Saint I.cardiac styleCode="Bold True [Mass/volume ">Troponin I Medical ] in Serum </content>< Center or Plasma 0.012 NG/ML<content styleCode="Ital ics"> (< 0.034 NG/ML)</content > ID Date Data Source [id number] 09/19/2019 03:20:00 PM EDT [facility] Name Value Range Interpretation Description Data Sup porting Code Source(s) Document(s ) Sodium 137-145 Below low <content Saint [Moles/volume] in normal styleCode="Bold"> [facility] Serum or Plasma Sodium Medical </content>134 Center MEQ/L L<content styleCode="Italic s"> (137-145 MEQ/L)</content> Potassium 3.5-5.3 <content Saint [Moles/volume] in styleCode="Bold"> [facility] Serum or Plasma Potassium Medical </content>3.8 Center MEQ/L<content styleCode="Italic s"> (3.5-5.3 MEQ/L)</content> Chloride 98-107 <content Saint [Moles/volume] in styleCode="Bold"> [facility] Serum or Plasma Chloride Medical </content>103 Center MEQ/L<content styleCode="Italic s"> (98-107 MEQ/L)</content> Carbon dioxide, 22-30 <content Saint total styleCode="Bold"> True [Moles/volume] in Carbon Dioxide Medical Serum or Plasma </content>24 Center MEQ/L<content styleCode="Italic s"> (22-30 MEQ/L)</content> Aspartate 17-59 Above high <content [facility] aminotransferase normal styleCode="Bold"> [facility] hs [Enzymatic Aspartate Medical activity/volume] Aminotransferase Center in Serum or Plasma (AST) </content>79 IU/L H<content styleCode="Italic s"> (17-59 IU/L)</content> Calcium 8.4-10. <content Saint [Mass/volume] in 2 styleCode="Bold"> [facility] hs Serum or Plasma Calcium Medical </content>8.6 Center MG/DL<content styleCode="Italic s"> (8.4-10.2 MG/DL)</content> UNK 9-20 <content Saint styleCode="Bold"> True BUN </content>20 Medical MG/DL<content Center styleCode="Italic s"> (9-20 MG/DL)</content> UNK > 60 <content Saint styleCode="Bold"> True EGFR </content>72 Medical GFR<content Center styleCode="Italic s"> (> 60 GFR)</content> Glucose 74-106 <content Saint [Mass/volume] in styleCode="Bold"> [facility] hs Serum or Plasma Glucose Medical </content>100 Center MG/DL<content styleCode="Italic s"> (74-106 MG/DL)</content> Creatinine 0.5-1.3 <content [facility] [Mass/volume] in styleCode="Bold"> [facility] hs Serum or Plasma Creatinine Medical </content>1.1 Center MG/DL<content styleCode="Italic s"> (0.5-1.3 MG/DL)</content> Alanine 7-50 Above high <content [facility] aminotransferase normal styleCode="Bold"> [facility] hs [Enzymatic Alanine Medical activity/volume] Aminotransferase Center in Serum or Plasma (ALT) </content>172 IU/L H<content styleCode="Italic s"> (7-50 IU/L)</content> Bilirubin.total 0.2-1.3 Above high <content Saint [Mass/volume] in normal styleCode="Bold"> [facility] hs Serum or Plasma Bilirubin Total Medical </content>2.0 Center MG/DL H<content styleCode="Italic s"> (0.2-1.3 MG/DL)</content> Albumin 3.5-5.0 <content Saint [Mass/volume] in styleCode="Bold"> [facility] hs Serum or Plasma Albumin Medical </content>3.8 Center G/DL<content styleCode="Italic s"> (3.5-5.0 G/DL)</content> Alkaline 38-126 <content [facility] phosphatase styleCode="Bold"> True [Enzymatic Alkaline Medical activity/volume] Phosphatase (ALP) Cente r in Serum or Plasma </content>74 IU/L<content styleCode="Italic s"> (38-126 IU/L)</content> ID Date Data Source [id number] 09/16/2019 08:47:00 AM EDT [facility] Name Value Range Interpretation Code Description Data Libra rce(s) Supporting Document(s ) SARS-CoV-2 [facility] Ql MC+probe This lab was ordered by [facility] a nd reported by [facility]. ID Date Data Source [id number] 09/09/2019 02:44:00 PM EDT [facility] Name Value Range Interpretation Code Description Data Libra rce(s) Supporting Document(s ) SARS-CoV-2 [facility] Ql MC+probe This lab was ordered by [facility] a nd reported by [facility]. ID Date Data Source Urinalysis.[id number] 08/13/2019 11:10:00 AM EDT [facility] 0 Name Value Range Interpretation Description Data Sup porting Code Source(s) Document(s ) UNK CLEAR <content Saint styleCode="Beverly Jamess d">Urine Medical Clarity Center </content>RONDA R <content styleCode="Suzi lics"> (CLEAR )</content> Color of Urine YELLOW <content Saint styleCode="[facility]ly Jamess d">Color, Medical Urine Center </content>YELL OW <content styleCode="Suzi lics"> (YELLOW )</content> UNK NEGATIVE <content Saint styleCode="Beverly True d">Urine Medical Bilirubin Center </content>NEGA TIVE <content styleCode="Suzi lics"> (NEGATIVE )</content> Glucose NEGATIVE <content Saint [Mass/volume] styleCode="Beverly True in Urine by d">Urine Medical Test strip Glucose Center </content>NEGA TIVE MG/DL<content styleCode="Suzi lics"> (NEGATIVE MG/DL)</conten t> Hemoglobin NEGATIVE <content Saint [Presence] in styleCode="B[place]ly Jamess Urine by Test d">Urine Blood Medical strip </content>SMAL Center L <content styleCode="Suzi lics"> (NEGATIVE )</content> Specific 1.015-1.02 <content Saint gravity of 5 styleCode="Beverly Jamess Urine by Test d">Urine Medical strip Specific Center [place] </content>1.02 5 <content styleCode="Suzi lics"> (1.015-1.025 )</content> pH of Urine by 4.5-8.0 <content Saint Test strip styleCode="Beverly True d">Urine pH Medical </content>7.0 Center <content styleCode="Suzi lics"> (4.5-8.0 )</content> Ketones NEGATIVE <content Saint [Mass/volume] styleCode="Beverly True in Urine by d">Urine Medical Test strip Ketone Center </content>NEGA TIVE MG/DL<content styleCode="Suzi lics"> (NEGATIVE MG/DL)</conten t> Leukocyte NEGATIVE <content Saint esterase styleCode="Beverly Jamess [Presence] in d">Urine Medical Urine by Test Leukocyte Center strip </content>NEGA TIVE <content styleCode="Suzi lics"> (NEGATIVE )</content> Urobilinogen 0.2-1.0 <content Saint [Units/volume] styleCode="Beverly True in Urine by d">Urine Medical Test strip Urobilinogen Center </content>0.2 MG/DL<content styleCode="Suzi lics"> (0.2-1.0 MG/DL)</conten t> UNK 0-3 <content Saint styleCode="[place]ly True d">Urine Red Medical Blood Cell Center </content>3-5 HPF<content styleCode="Suzi lics"> (0-3 HPF)</content> Nitrite NEGATIVE <content Saint [Presence] in styleCode="B[place]ly Biswas Urine by Test d">Urine Medical strip Nitrite Center </content>NEGA TIVE <content styleCode="Suzi lics"> (NEGATIVE )</content> Protein NEGATIVE <content Saint [Mass/volume] styleCode="B[place]ly Biswas in Urine by d">Urine Medical Test strip Protein Center </content>NEGA TIVE MG/DL<content styleCode="Suzi lics"> (NEGATIVE MG/DL)</conten t> UNK 0-3 <content Saint styleCode="Beverly True d">Urine White Medical Blood Cell Center </content>0-3 HPF<content styleCode="Suzi lics"> (0-3 HPF)</content> ID Date Data Source Liver 08/13/2019 05:40:00 AM EDT [facility] Profile.[id number] Name Value Range Interpretation Description Data Sup porting Code Source(s) Document(s ) Aspartate 17-59 <content [facility] aminotransferase styleCode="Bold"> [facility] hs [Enzymatic Aspartate Medical activity/volume] Aminotransferase Center in Serum or Plasma (AST) </content>37 IU/L<content styleCode="Italic s"> (17-59 IU/L)</content> Alanine 7-50 Above high <content [facility] aminotransferase normal styleCode="Bold"> [place] hs [Enzymatic Alanine Medical activity/volume] Aminotransferase Center in Serum or Plasma (ALT) </content>53 IU/L H<content styleCode="Italic s"> (7-50 IU/L)</content> Alkaline 38-126 <content Saint phosphatase styleCode="Bold"> True [Enzymatic Alkaline Medical activity/volume] Phosphatase (ALP) Cente r in Serum or Plasma </content>91 IU/L<content styleCode="Italic s"> (38-126 IU/L)</content> Bilirubin.total 0.2-1.3 <content Saint [Mass/volume] in styleCode="Bold"> [place] hs Serum or Plasma Bilirubin Total Medical </content>0.4 Center MG/DL<content styleCode="Italic s"> (0.2-1.3 MG/DL)</content> Albumin 3.5-5.0 <content Saint [Mass/volume] in styleCode="Bold"> [facility] hs Serum or Plasma Albumin Medical </content>3.5 Center G/DL<content styleCode="Italic s"> (3.5-5.0 G/DL)</content> ID Date Data Source HematologyRou.[id number] 08/13/2019 05:40:00 AM EDT [facility] 0400 Name Value Range Interpretation Description Data Sup porting Code Source(s) Document(s ) Erythrocytes 4.4-5.9 <content Saint [#/volume] in styleCode="Bold [facility] Blood by ">Red Blood Medical Automated count Cell Count Center </content>5.42 MCUMM<content styleCode="Ital ics"> (4.4-5.9 MCUMM)</content > Leukocytes 4.4-11.0 <content Saint [#/volume] in styleCode="Bold True Blood by ">White Blood Medical Automated count Cell Count Center </content>6.42 KCUMM<content styleCode="Ital ics"> (4.4-11.0 KCUMM)</content > Erythrocyte mean 26.0-34. <content [facility] corpuscular 0 styleCode="Bold True hemoglobin ">Mean Medical [Entitic mass] Corposcular Center by Automated Hemoglobin count </content>30.3 PG<content styleCode="Ital ics"> (26.0-34.0 PG)</content> Erythrocyte mean 32.0-37. <content [facility] corpuscular 0 styleCode="Bold True hemoglobin ">Mean Corpus. Medical concentration Hgb Center [Mass/volume] by Concentration Automated count (MCHC) </content>34.1 G/DL<content styleCode="Ital ics"> (32.0-37.0 G/DL)</content> Hemoglobin 13.5-17. <content Saint [Mass/volume] in 5 styleCode="Bold True Blood ">Hemoglobin Medical </content>16.4 Center G/DL<content styleCode="Ital ics"> (13.5-17.5 G/DL)</content> Erythrocyte mean 80.0-100 <content Saint corpuscular .0 styleCode="Bold True volume [Entitic ">Mean Medical volume] by Corpuscular Center Automated count Volume </content>88.7 FL<content styleCode="Ital ics"> (80.0-100.0 FL)</content> Hematocrit 41.0-53. <content Saint [Volume 0 styleCode="Bold True Fraction] of ">Hematocrit Medical Blood by </content>48.1 Center Automated count %<content styleCode="Ital ics"> (41.0-53.0 %)</content> Platelets 130-400 Below low normal <content Saint [#/volume] in styleCode="Bold True Blood by ">Platelet Medical Automated count Count Center </content>127 KCUMM L<content styleCode="Ital ics"> (130-400 KCUMM)</content > UNK 0.0 <content Saint styleCode="Bold True ">Nucleated Red Medical Blood Cell Center Count </content>0.00 KCUMM<content styleCode="Ital ics"> (0.0 KCUMM)</content > UNK 0 <content Saint styleCode="Bold True ">Nucleated Red Medical Blood Cell Center </content>0.0 /100<content styleCode="Ital ics"> (0 /100)</content> Erythrocyte 11.5-14. <content Saint distribution 5 styleCode="Bold True width [Ratio] by ">Red Cell Medical Automated count Distribution Center Width </content>13.6 %<content styleCode="Ital ics"> (11.5-14.5 %)</content> Platelet mean 8.0-11.0 Above high <content Saint volume [Entitic normal styleCode="Bold True volume] in Blood ">Mean Platelet Medical by Automated Volume Center count </content>11.5 FL H<content styleCode="Ital ics"> (8.0-11.0 FL)</content> ID Date Data Source GFR(Creatinine).[id number] 08/13/2019 05:40:00 AM EDT [facility] 0-0400 Name Value Range Interpretation Code Description Data Libra rce(s) Supporting Document(s ) UNK > 60 <content Saint True styleCode="Bold"> Medical Cent er EGFR </content>72 GFR<content styleCode="Italic s"> (> 60 GFR)</content> ID Date Data Source Genetics.[id number] 08/13/2019 05:40:00 AM EDT [facility] Name Value Range Interpretation Description Data Sup porting Code Source(s) Document(s ) [id number] < 7.51 <content [facility] protein styleCode="Bold Medical [Units/volum ">AFP Center e] in </content>4.81 Amniotic NG/ML<content fluid styleCode="Ital ics"> (< 7.51 NG/ML)</content > ID Date Data Source CHMROUTINECCDA.[id number] 08/13/2019 05:40:00 AM EDT [facility] -0400 Name Value Range Interpretation Description Data Sup porting Code Source(s) Document(s ) Prostate < 4.0 <content [facility] specific Ag styleCode="Bold True [Mass/volume ">Prostate Medical ] in Serum Specific Center or Plasma Antigen </content>1.93 NG/ML<content styleCode="Ital ics"> (< 4.0 NG/ML)</content > UNK 2.3-3.5 <content Saint styleCode="Bold True ">Globulin Medical </content>3.1 Center G/DL<content styleCode="Ital ics"> (2.3-3.5 G/DL)</content> UNK >= 1.0 <content Saint styleCode="Bold True ">AG Ratio Medical </content>1.1 Center <content styleCode="Ital ics"> (>= 1.0 )</content> Protein 6.3-8.2 <content [facility] [Mass/volume styleCode="Bold True ] in Serum ">Total Protein Medical or Plasma </content>6.6 Center G/DL<content styleCode="Ital ics"> (6.3-8.2 G/DL)</content> ID Date Data Source [facility].[id number] 08/13/2019 05:40:00 AM EDT [facility] Name Value Range Interpretation Description Data Sup porting Code Source(s) Document(s ) Potassium 3.5-5.3 <content Saint [Moles/volume] in styleCode="Bold"> [facility]ki [facility] Serum or Plasma Potassium Medical </content>4.5 Center MEQ/L<content styleCode="Italic s"> (3.5-5.3 MEQ/L)</content> Carbon dioxide, 22-30 <content [facility] total styleCode="Bold"> True [Moles/volume] in Carbon Dioxide Medical Serum or Plasma </content>22 Center MEQ/L<content styleCode="Italic s"> (22-30 MEQ/L)</content> Sodium 137-145 <content [facility] [Moles/volume] in styleCode="Bold"> Vikki [facility] Serum or Plasma Sodium Medical </content>138 Center MEQ/L<content styleCode="Italic s"> (137-145 MEQ/L)</content> UNK 9-20 Above high <content [facility] normal styleCode="Bold"> True BUN </content>23 Medical MG/DL H<content Center styleCode="Italic s"> (9-20 MG/DL)</content> Chloride 98-107 Above high <content Saint [Moles/volume] in normal styleCode="Bold"> Vikki [facility] Serum or Plasma Chloride Medical </content>108 Center MEQ/L H<content styleCode="Italic s"> (98-107 MEQ/L)</content> Glucose 74-106 <content [facility] [Mass/volume] in styleCode="Bold"> Tomi hs Serum or Plasma Glucose Medical </content>99 Center MG/DL<content styleCode="Italic s"> (74-106 MG/DL)</content> Alanine 7-50 Above high <content [facility] aminotransferase normal styleCode="Bold"> Tomi hs [Enzymatic Alanine Medical activity/volume] Aminotransferase Center in Serum or Plasma (ALT) </content>53 IU/L H<content styleCode="Italic s"> (7-50 IU/L)</content> UNK > 60 <content [facility] styleCode="Bold"> True EGFR </content>72 Medical GFR<content Center styleCode="Italic s"> (> 60 GFR)</content> Aspartate 17-59 <content [facility] aminotransferase styleCode="Bold"> Tomi hs [Enzymatic Aspartate Medical activity/volume] Aminotransferase Center in Serum or Plasma (AST) </content>37 IU/L<content styleCode="Italic s"> (17-59 IU/L)</content> Calcium 8.4-10. <content [facility] [Mass/volume] in 2 styleCode="Bold"> Tomi hs Serum or Plasma Calcium Medical </content>8.9 Center MG/DL<content styleCode="Italic s"> (8.4-10.2 MG/DL)</content> Creatinine 0.5-1.3 <content [facility] [Mass/volume] in styleCode="Bold"> Tomi hs Serum or Plasma Creatinine Medical </content>1.1 Center MG/DL<content styleCode="Italic s"> (0.5-1.3 MG/DL)</content> Albumin 3.5-5.0 <content [facility] [Mass/volume] in styleCode="Bold"> Tomi hs Serum or Plasma Albumin Medical </content>3.5 Center G/DL<content styleCode="Italic s"> (3.5-5.0 G/DL)</content> Bilirubin.total 0.2-1.3 <content [facility] [Mass/volume] in styleCode="Bold"> Tomi hs Serum or Plasma Bilirubin Total Medical </content>0.4 Center MG/DL<content styleCode="Italic s"> (0.2-1.3 MG/DL)</content> Alkaline 38-126 <content [facility] phosphatase styleCode="Bold"> True [Enzymatic Alkaline Medical activity/volume] Phosphatase (ALP) Cente r in Serum or Plasma </content>91 IU/L<content styleCode="Italic s"> (38-126 IU/L)</content> ID Date Data Source Urinalysis.[id number] 08/12/2019 02:37:00 PM EDT [facility] 0 Name Value Range Interpretation Description Data Sup porting Code Source(s) Document(s ) Color of Urine YELLOW <content Saint styleCode="Beverly Jamess d">Color, Medical Urine Center </content>BROW N <content styleCode="Suzi lics"> (YELLOW )</content> UNK CLEAR <content Saint styleCode="[facility] d">Urine Medical Clarity Center </content>CLOU DY <content styleCode="Suzi lics"> (CLEAR )</content> Hemoglobin NEGATIVE <content Saint [Presence] in styleCode="Beverly Biswas Urine by Test d">Urine Blood Medical strip </content>Test Center not performed. <content styleCode="Suzi lics"> (NEGATIVE )</content> UNK NEGATIVE <content Saint styleCode="Beverly Jamess d">Urine Medical Bilirubin Center </content>SMAL L <content styleCode="Suzi lics"> (NEGATIVE )</content> Specific 1.015-1.02 Above high <content Saint gravity of 5 normal styleCode="Beverly Biswas Urine by Test d">Urine Medical strip Specific Center [place] </content>>= 1.030 H<content styleCode="Suzi lics"> (1.015-1.025 )</content> Glucose NEGATIVE <content [facility] [Mass/volume] styleCode="Beverly Jamess in Urine by d">Urine Medical Test strip Glucose Center </content>NEGA TIVE MG/DL<content styleCode="Suzi lics"> (NEGATIVE MG/DL)</conten t> Ketones NEGATIVE <content Saint [Mass/volume] styleCode="Beverly True in Urine by d">Urine Medical Test strip Ketone Center </content>NEGA TIVE MG/DL<content styleCode="Suzi lics"> (NEGATIVE MG/DL)</conten t> pH of Urine by 4.5-8.0 <content Saint Test strip styleCode="Beverly Jamess d">Urine pH Medical </content>5.5 Center <content styleCode="Suzi lics"> (4.5-8.0 )</content> Protein NEGATIVE <content Saint [Mass/volume] styleCode="Beverly Biswas in Urine by d">Urine Medical Test strip Protein Center </content>100 MG/DL<content styleCode="Suzi lics"> (NEGATIVE MG/DL)</conten t> Nitrite NEGATIVE <content Saint [Presence] in styleCode="Beverly Jamess Urine by Test d">Urine Medical strip Nitrite Center </content>Test not performed. <content styleCode="Suzi lics"> (NEGATIVE )</content> Urobilinogen 0.2-1.0 <content Saint [Units/volume] styleCode="Beverly Jamess in Urine by d">Urine Medical Test strip Urobilinogen Center </content>0.2 MG/DL<content styleCode="Suzi lics"> (0.2-1.0 MG/DL)</conten t> UNK NEGATIVE <content Saint styleCode="Beverly True d">Urine Medical Bacteria Center </content>MODE RATE HPF<content styleCode="Suzi lics"> (NEGATIVE HPF)</content> UNK 0-3 <content Saint styleCode="Beverly Jamess d">Urine White Medical Blood Cell Center </content>20 - 50 HPF<content styleCode="Suzi lics"> (0-3 HPF)</content> UNK 0-3 <content Saint styleCode="Beverly Jamess d">Urine Red Medical Blood Cell Center </content>>200 HPF<content styleCode="Suzi lics"> (0-3 HPF)</content> Leukocyte NEGATIVE <content Saint esterase styleCode="Beverly Biswas [Presence] in d">Urine Medical Urine by Test Leukocyte Center strip </content>Test not performed. <content styleCode="Suzi lics"> (NEGATIVE )</content> ID Date Data Source Microbiology.[id number] 08/12/2019 02:37:00 PM EDT [facility] 400 Name Value Range Interpretation Code Description Data Libra rce(s) Supporting Document(s ) UNK <item><content Saint True mabryCode="Bold"> Medical [facility] er Culture Status </content>
<t able><tbody><tr>< td>Specimen Number:</td><td>[id number]</td></tr ><tr><td>Sample Collection Date/Time: </td><td> 0 2:37 PM</td></tr><tr>< td>Specimen Source:</td><td>U RINE</td></tr><tr ><td>Culture Status:</td><td>P reliminary </td></tr><tr><td >Culture Report:</td><td>C ulture in progress </td></tr><tr><td >Urine Culture:</td><td> Collection Plate Date: 08/12/2019 14:43 </td></tr></tbody ></table></item> UNK <item><content [facility] Biswas styleCode="Bold"> Medical [facility] er Culture Report </content>
<t able><tbody><tr>< td>Specimen Number:</td><td>[id number]</td></tr ><tr><td>Sample Collection Date/Time: </td><td> 0 2:37 PM</td></tr><tr>< td>Specimen Source:</td><td>U RINE</td></tr><tr ><td>Urine Culture:</td><td> Collection Plate Date: 08/12/2019 14:43 </td></tr><tr><td >Culture Status:</td><td>P reliminary </td></tr><tr><td >Culture Report:</td><td>C ulture in progress </td></tr></tbody ></table></item> ID Date Data Source Liver 08/12/2019 02:37:00 PM EDT [facility] Profile.[id number] Name Value Range Interpretation Description Data Sup porting Code Source(s) Document(s ) Aspartate 17-59 <content [facility] aminotransferase styleCode="Bold"> Tomi hs [Enzymatic Aspartate Medical activity/volume] Aminotransferase Center in Serum or Plasma (AST) </content>39 IU/L<content styleCode="Italic s"> (17-59 IU/L)</content> Alanine 7-50 Above high <content [facility] aminotransferase normal styleCode="Bold"> Tomi hs [Enzymatic Alanine Medical activity/volume] Aminotransferase Center in Serum or Plasma (ALT) </content>56 IU/L H<content styleCode="Italic s"> (7-50 IU/L)</content> Albumin 3.5-5.0 <content [facility] [Mass/volume] in styleCode="Bold"> Tomi hs Serum or Plasma Albumin Medical </content>4.0 Center G/DL<content styleCode="Italic s"> (3.5-5.0 G/DL)</content> Bilirubin.total 0.2-1.3 <content [facility] [Mass/volume] in styleCode="Bold"> Tomi hs Serum or Plasma Bilirubin Total Medical </content>0.4 Center MG/DL<content styleCode="Italic s"> (0.2-1.3 MG/DL)</content> Alkaline 38-126 <content [facility] phosphatase styleCode="Bold"> True [Enzymatic Alkaline Medical activity/volume] Phosphatase (ALP) Cente r in Serum or Plasma </content>87 IU/L<content styleCode="Italic s"> (38-126 IU/L)</content> UNK 0.0-0.3 <content [facility] styleCode="Bold"> True Bilirubin, Direct Medical </content>< 0.2 Center MG/DL<content styleCode="Italic s"> (0.0-0.3 MG/DL)</content> ID Date Data Source HematologyRou.[id number] 08/12/2019 02:37:00 PM EDT [facility] 0400 Name Value Range Interpretation Description Data Sup porting Code Source(s) Document(s ) Hematocrit 41.0-53. <content Saint [Volume 0 styleCode="Bold True Fraction] of ">Hematocrit Medical Blood by </content>49.0 Center Automated count %<content styleCode="Ital ics"> (41.0-53.0 %)</content> Erythrocytes 4.4-5.9 <content Saint [#/volume] in styleCode="Bold True Blood by ">Red Blood Medical Automated count Cell Count Center </content>5.49 MCUMM<content styleCode="Ital ics"> (4.4-5.9 MCUMM)</content > Erythrocyte mean 80.0-100 <content [facility] corpuscular .0 styleCode="Bold True volume [Entitic ">Mean Medical volume] by Corpuscular Center Automated count Volume </content>89.3 FL<content styleCode="Ital ics"> (80.0-100.0 FL)</content> Leukocytes 4.4-11.0 <content [facility] [#/volume] in styleCode="Bold True Blood by ">White Blood Medical Automated count Cell Count Center </content>7.39 KCUMM<content styleCode="Ital ics"> (4.4-11.0 KCUMM)</content > Hemoglobin 13.5-17. <content [facility] [Mass/volume] in 5 styleCode="Bold True Blood ">Hemoglobin Medical </content>16.2 Center G/DL<content styleCode="Ital ics"> (13.5-17.5 G/DL)</content> Erythrocyte 11.5-14. <content Saint distribution 5 styleCode="Bold True width [Ratio] by ">Red Cell Medical Automated count Distribution Center Width </content>13.9 %<content styleCode="Ital ics"> (11.5-14.5 %)</content> Platelets 130-400 <content Saint [#/volume] in styleCode="Bold True Blood by ">Platelet Medical Automated count Count Center </content>141 KCUMM<content styleCode="Ital ics"> (130-400 KCUMM)</content > Erythrocyte mean 32.0-37. <content [facility] corpuscular 0 styleCode="Bold True hemoglobin ">Mean Corpus. Medical concentration Hgb Center [Mass/volume] by Concentration Automated count (MCHC) </content>33.1 G/DL<content styleCode="Ital ics"> (32.0-37.0 G/DL)</content> Erythrocyte mean 26.0-34. <content [facility] corpuscular 0 styleCode="Bold True hemoglobin ">Mean Medical [Entitic mass] Corposcular Center by Automated Hemoglobin count </content>29.5 PG<content styleCode="Ital ics"> (26.0-34.0 PG)</content> Platelet mean 8.0-11.0 <content [facility] volume [Entitic styleCode="Bold True volume] in Blood ">Mean Platelet Medical by Automated Volume Center count </content>10.7 FL<content styleCode="Ital ics"> (8.0-11.0 FL)</content> UNK 0 <content Saint styleCode="Bold True ">Nucleated Red Medical Blood Cell Center </content>0.0 /100<content styleCode="Ital ics"> (0 /100)</content> UNK 0.0 <content Saint styleCode="Bold True ">Nucleated Red Medical Blood Cell Center Count </content>0.00 KCUMM<content styleCode="Ital ics"> (0.0 KCUMM)</content > ID Date Data Source GFR(Creatinine).[id number] 08/12/2019 02:37:00 PM EDT [facility] 0-0400 Name Value Range Interpretation Code Description Data Libra rce(s) Supporting Document(s ) UNK > 60 <content [facility] styleCode="Bold"> Medical Cent er EGFR </content>72 GFR<content styleCode="Italic s"> (> 60 GFR)</content> ID Date Data Source Coagulation 08/12/2019 02:37:00 PM [facility] Rout.[id number] EDT Name Value Range Interpretation Description Data Sup porting Code Source(s) Document(s ) UNK 9.0-13.0 <content Saint styleCode="Bold" True >Protime Medical </content>12.6 Center SEC<content styleCode="Itali cs"> (9.0-13.0 SEC)</content> INR in 0.80-1.2 <content [facility] Platelet poor 0 styleCode="Bold" True plasma by >INR Medical Coagulation </content>1.14 Center assay #<content styleCode="Itali cs"> (0.80-1.20 #)</content> aPTT in 25.1-36. <content [facility] Platelet poor 5 styleCode="Bold" True plasma by >Partial Medical Coagulation Thromboplastin Center assay Time </content>33.9 SEC<content styleCode="Itali cs"> (25.1-36.5 SEC)</content> ID Date Data Source CHMROUTINECCDA.[id number] 08/12/2019 02:37:00 PM EDT [facility] -0400 Name Value Range Interpretation Description Data Sup porting Code Source(s) Document(s ) Lipase 23-300 <content Saint True [Enzymatic styleCode="Bold Medical activity/vo ">Lipase Center lume] in </content>33 Serum or IU/L<content Plasma styleCode="Ital ics"> (23-300 IU/L)</content> UNK 30-110 <content Saint True styleCode="Bold Medical ">Amylase Center </content>53 IU/L<content styleCode="Ital ics"> (30-110 IU/L)</content> ID Date Data Source [facility].[id number] 08/12/2019 02:37:00 PM EDT [facility] -0400 Name Value Range Interpretation Description Data Sup porting Code Source(s) Document(s ) Troponin < 0.034 <content Saint I.cardiac styleCode="Bold True [Mass/volume ">Troponin I Medical ] in Serum </content>< Center or Plasma 0.012 NG/ML<content styleCode="Ital ics"> (< 0.034 NG/ML)</content > ID Date Data Source [facility].[id number] 08/12/2019 02:37:00 PM EDT [facility] Name Value Range Interpretation Description Data Sup porting Code Source(s) Document(s ) Sodium 137-145 <content Saint [Moles/volume] in styleCode="Bold"> Vikki phs Serum or Plasma Sodium Medical </content>140 Center MEQ/L<content styleCode="Italic s"> (137-145 MEQ/L)</content> Potassium 3.5-5.3 <content [facility] [Moles/volume] in styleCode="Bold"> Vikki phs Serum or Plasma Potassium Medical </content>4.3 Center MEQ/L<content styleCode="Italic s"> (3.5-5.3 MEQ/L)</content> Chloride 98-107 <content [facility] [Moles/volume] in styleCode="Bold"> Vikki phs Serum or Plasma Chloride Medical </content>106 Center MEQ/L<content styleCode="Italic s"> (98-107 MEQ/L)</content> UNK 9-20 Above high <content Saint normal styleCode="Bold"> True BUN </content>23 Medical MG/DL H<content Center styleCode="Italic s"> (9-20 MG/DL)</content> Creatinine 0.5-1.3 <content Saint [Mass/volume] in styleCode="Bold"> Tomi hs Serum or Plasma Creatinine Medical </content>1.1 Center MG/DL<content styleCode="Italic s"> (0.5-1.3 MG/DL)</content> Carbon dioxide, 22-30 <content Saint total styleCode="Bold"> True [Moles/volume] in Carbon Dioxide Medical Serum or Plasma </content>27 Center MEQ/L<content styleCode="Italic s"> (22-30 MEQ/L)</content> UNK > 60 <content Saint styleCode="Bold"> True EGFR </content>72 Medical GFR<content Center styleCode="Italic s"> (> 60 GFR)</content> Glucose 74-106 <content Saint [Mass/volume] in styleCode="Bold"> Tomi hs Serum or Plasma Glucose Medical </content>103 Center MG/DL<content styleCode="Italic s"> (74-106 MG/DL)</content> Calcium 8.4-10. <content Saint [Mass/volume] in 2 styleCode="Bold"> Tomi hs Serum or Plasma Calcium Medical </content>9.1 Center MG/DL<content styleCode="Italic s"> (8.4-10.2 MG/DL)</content> Alanine 7-50 Above high <content Saint aminotransferase normal styleCode="Bold"> Tomi hs [Enzymatic Alanine Medical activity/volume] Aminotransferase Center in Serum or Plasma (ALT) </content>56 IU/L H<content styleCode="Italic s"> (7-50 IU/L)</content> Aspartate 17-59 <content [facility] aminotransferase styleCode="Bold"> Tomi hs [Enzymatic Aspartate Medical activity/volume] Aminotransferase Center in Serum or Plasma (AST) </content>39 IU/L<content styleCode="Italic s"> (17-59 IU/L)</content> Bilirubin.total 0.2-1.3 <content Saint [Mass/volume] in styleCode="Bold"> Tomi hs Serum or Plasma Bilirubin Total Medical </content>0.4 Center MG/DL<content styleCode="Italic s"> (0.2-1.3 MG/DL)</content> Alkaline 38-126 <content [facility] phosphatase styleCode="Bold"> True [Enzymatic Alkaline Medical activity/volume] Phosphatase (ALP) Cente r in Serum or Plasma </content>87 IU/L<content styleCode="Italic s"> (38-126 IU/L)</content> Albumin 3.5-5.0 <content Saint [Mass/volume] in styleCode="Bold"> Tomi hs Serum or Plasma Albumin Medical </content>4.0 Center G/DL<content styleCode="Italic s"> (3.5-5.0 G/DL)</content> ID Date Data Source Liver 04/14/2019 11:25:00 AM EST [facility] Profile.[id number] Name Value Range Interpretation Description Data Sup porting Code Source(s) Document(s ) Aspartate 17-59 <content [facility] aminotransferase styleCode="Bold"> Tomi hs [Enzymatic Aspartate Medical activity/volume] Aminotransferase Center in Serum or Plasma (AST) </content>39 IU/L<content styleCode="Italic s"> (17-59 IU/L)</content> Alkaline 38-126 <content [facility] phosphatase styleCode="Bold"> True [Enzymatic Alkaline Medical activity/volume] Phosphatase (ALP) Cente r in Serum or Plasma </content>110 IU/L<content styleCode="Italic s"> (38-126 IU/L)</content> Bilirubin.total 0.2-1.3 <content Saint [Mass/volume] in styleCode="Bold"> Tomi hs Serum or Plasma Bilirubin Total Medical </content>0.7 Center MG/DL<content styleCode="Italic s"> (0.2-1.3 MG/DL)</content> Alanine 7-50 <content [facility] aminotransferase styleCode="Bold"> Tomi hs [Enzymatic Alanine Medical activity/volume] Aminotransferase Center in Serum or Plasma (ALT) </content>50 IU/L<content styleCode="Italic s"> (7-50 IU/L)</content> UNK 0.0-0.3 <content Saint styleCode="Bold"> True Bilirubin, Direct Medical </content>< 0.2 Center MG/DL<content styleCode="Italic s"> (0.0-0.3 MG/DL)</content> Albumin 3.5-5.0 <content Saint [Mass/volume] in styleCode="Bold"> Tomi hs Serum or Plasma Albumin Medical </content>3.9 Center G/DL<content styleCode="Italic s"> (3.5-5.0 G/DL)</content> ID Date Data Source HematologyRou.[id number] 04/14/2019 11:25:00 AM EST [facility] 0500 Name Value Range Interpretation Description Data Sup porting Code Source(s) Document(s ) Hemoglobin 13.5-17. <content Saint [Mass/volume] in 5 styleCode="Bold True Blood ">Hemoglobin Medical </content>16.1 Center G/DL<content styleCode="Ital ics"> (13.5-17.5 G/DL)</content> Hematocrit 41.0-53. <content Saint [Volume 0 styleCode="Bold True Fraction] of ">Hematocrit Medical Blood by </content>45.9 Center Automated count %<content styleCode="Ital ics"> (41.0-53.0 %)</content> Leukocytes 4.4-11.0 <content Saint [#/volume] in styleCode="Bold True Blood by ">White Blood Medical Automated count Cell Count Center </content>8.18 KCUMM<content styleCode="Ital ics"> (4.4-11.0 KCUMM)</content > Erythrocytes 4.4-5.9 <content Saint [#/volume] in styleCode="Bold True Blood by ">Red Blood Medical Automated count Cell Count Center </content>5.33 MCUMM<content styleCode="Ital ics"> (4.4-5.9 MCUMM)</content > Erythrocyte 11.5-14. <content [facility] distribution 5 styleCode="Bold True width [Ratio] by ">Red Cell Medical Automated count Distribution Center Width </content>13.2 %<content styleCode="Ital ics"> (11.5-14.5 %)</content> Erythrocyte mean 26.0-34. <content [facility] corpuscular 0 styleCode="Bold True hemoglobin ">Mean Medical [Entitic mass] Corposcular Center by Automated Hemoglobin count </content>30.2 PG<content styleCode="Ital ics"> (26.0-34.0 PG)</content> Erythrocyte mean 32.0-37. <content [facility] corpuscular 0 styleCode="Bold True hemoglobin ">Mean Corpus. Medical concentration Hgb Center [Mass/volume] by Concentration Automated count (MCHC) </content>35.1 G/DL<content styleCode="Ital ics"> (32.0-37.0 G/DL)</content> Platelets 130-400 Below low normal <content Saint [#/volume] in styleCode="Bold True Blood by ">Platelet Medical Automated count Count Center </content>117 KCUMM L<content styleCode="Ital ics"> (130-400 KCUMM)</content > Erythrocyte mean 80.0-100 <content Saint corpuscular .0 styleCode="Bold True volume [Entitic ">Mean Medical volume] by Corpuscular Center Automated count Volume </content>86.1 FL<content styleCode="Ital ics"> (80.0-100.0 FL)</content> UNK 0 <content Saint styleCode="Bold True ">Nucleated Red Medical Blood Cell Center </content>0.0 /100<content styleCode="Ital ics"> (0 /100)</content> UNK 0.0 <content Saint styleCode="Bold True ">Nucleated Red Medical Blood Cell Center Count </content>0.00 KCUMM<content styleCode="Ital ics"> (0.0 KCUMM)</content > ID Date Data Source GFR(Creatinine).[id number] 04/14/2019 11:25:00 AM [facility] 0-0500 Name Value Range Interpretation Code Description Data Libra rce(s) Supporting Document(s ) UNK > 60 <content [facility] styleCode="Bold"> Medical Cent er EGFR </content>81 GFR<content styleCode="Italic s"> (> 60 GFR)</content> ID Date Data Source CHMROUTINECCDA.[id number] 04/14/2019 11:25:00 AM [facility] -0500 Name Value Range Interpretation Description Data Sup porting Code Source(s) Document(s ) UNK 30-110 <content [facility] styleCode="Bold Medical ">Amylase Center </content>67 IU/L<content styleCode="Ital ics"> (30-110 IU/L)</content> Lipase 23-300 <content [facility] [Enzymatic styleCode="Bold Medical activity/vo ">Lipase Center lume] in </content>23 Serum or IU/L<content Plasma styleCode="Ital ics"> (23-300 IU/L)</content> Lactate 0.7-2.0 <content [facility] Jamess [Mass/volum styleCode="Bold Medical e] in Serum ">Lactic Acid Center or Plasma </content>1.5 MMOLL<content styleCode="Ital ics"> (0.7-2.0 MMOLL)</content > ID Date Data Source [facility].[id number] 04/14/2019 11:25:00 AM EST [facility] -0500 Name Value Range Interpretation Description Data Sup porting Code Source(s) Document(s ) Troponin < 0.034 <content [facility] I.cardiac styleCode="Bold True [Mass/volume ">Troponin I Medical ] in Serum </content>< Center or Plasma 0.012 NG/ML<content styleCode="Ital ics"> (< 0.034 NG/ML)</content > ID Date Data Source BMP.[id number] 04/14/2019 11:25:00 AM EST [facility] Name Value Range Interpretation Description Data Sup porting Code Source(s) Document(s ) Chloride 98-107 <content Saint [Moles/volume] in styleCode="Bold"> [facility] Serum or Plasma Chloride Medical </content>102 Center MEQ/L<content styleCode="Italic s"> (98-107 MEQ/L)</content> Sodium 137-145 Below low <content Saint [Moles/volume] in normal styleCode="Bold"> [facility] Serum or Plasma Sodium Medical </content>136 Center MEQ/L L<content styleCode="Italic s"> (137-145 MEQ/L)</content> Potassium 3.5-5.3 <content Saint [Moles/volume] in styleCode="Bold"> [facility] Serum or Plasma Potassium Medical </content>4.0 Center MEQ/L<content styleCode="Italic s"> (3.5-5.3 MEQ/L)</content> Creatinine 0.5-1.3 <content Saint [Mass/volume] in styleCode="Bold"> Tomi hs Serum or Plasma Creatinine Medical </content>1.0 Center MG/DL<content styleCode="Italic s"> (0.5-1.3 MG/DL)</content> Glucose 74-106 <content Saint [Mass/volume] in styleCode="Bold"> Tomi hs Serum or Plasma Glucose Medical </content>93 Center MG/DL<content styleCode="Italic s"> (74-106 MG/DL)</content> Calcium 8.4-10. <content Saint [Mass/volume] in 2 styleCode="Bold"> Tomi hs Serum or Plasma Calcium Medical </content>9.2 Center MG/DL<content styleCode="Italic s"> (8.4-10.2 MG/DL)</content> Carbon dioxide, 22-30 <content Saint total styleCode="Bold"> True [Moles/volume] in Carbon Dioxide Medical Serum or Plasma </content>25 Center MEQ/L<content styleCode="Italic s"> (22-30 MEQ/L)</content> UNK 9-20 <content Saint styleCode="Bold"> True BUN </content>19 Medical MG/DL<content Center styleCode="Italic s"> (9-20 MG/DL)</content> Alkaline 38-126 <content Saint phosphatase styleCode="Bold"> True [Enzymatic Alkaline Medical activity/volume] Phosphatase (ALP) Cente r in Serum or Plasma </content>110 IU/L<content styleCode="Italic s"> (38-126 IU/L)</content> Alanine 7-50 <content Saint aminotransferase styleCode="Bold"> Tomi hs [Enzymatic Alanine Medical activity/volume] Aminotransferase Center in Serum or Plasma (ALT) </content>50 IU/L<content styleCode="Italic s"> (7-50 IU/L)</content> UNK > 60 <content Saint styleCode="Bold"> True EGFR </content>81 Medical GFR<content Center styleCode="Italic s"> (> 60 GFR)</content> Aspartate 17-59 <content Saint aminotransferase styleCode="Bold"> Tomi hs [Enzymatic Aspartate Medical activity/volume] Aminotransferase Center in Serum or Plasma (AST) </content>39 IU/L<content styleCode="Italic s"> (17-59 IU/L)</content> Albumin 3.5-5.0 <content Saint [Mass/volume] in styleCode="Bold"> Tomi hs Serum or Plasma Albumin Medical </content>3.9 Center G/DL<content styleCode="Italic s"> (3.5-5.0 G/DL)</content> Bilirubin.total 0.2-1.3 <content Saint [Mass/volume] in styleCode="Bold"> Tomi hs Serum or Plasma Bilirubin Total Medical </content>0.7 Center MG/DL<content styleCode="Italic s"> (0.2-1.3 MG/DL)</content> ID Date Data Source [id number] 04/14/2019 11:23:00 AM [place] Due[facility]as [facility] 0 Name Value Range Interpretation Description Data Sup porting Code Source(s) Document(s ) UNK CLEAR <content Saint styleCode="[facility] d">Urine Medical Clarity Center </content>RONDA R <content styleCode="Suzi lics"> (CLEAR )</content> Color of Urine YELLOW <content Saint styleCode="[facility] d">Color, Medical Urine Center </content>YELL OW <content styleCode="Suzi lics"> (YELLOW )</content> Specific 1.015-1.02 Above high <content Saint gravity of 5 normal styleCode="[facility] Urine by Test d">Urine Medical strip Specific Center [place] </content>>= 1.030 H<content styleCode="Suzi lics"> (1.015-1.025 )</content> Ketones NEGATIVE <content Saint [Mass/volume] styleCode="[place] True in Urine by d">Urine Medical Test strip Ketone Center </content>NEGA TIVE MG/DL<content styleCode="Suzi lics"> (NEGATIVE MG/DL)</conten t> UNK NEGATIVE <content Saint styleCode="[place] Jamess d">Urine Medical Bilirubin Center </content>NEGA TIVE <content styleCode="Suzi lics"> (NEGATIVE )</content> Glucose NEGATIVE <content Saint [Mass/volume] styleCode="[place] True in Urine by d">Urine Medical Test strip Glucose Center </content>NEGA TIVE MG/DL<content styleCode="Suzi lics"> (NEGATIVE MG/DL)</conten t> pH of Urine by 4.5-8.0 <content Saint Test strip styleCode="[place] Jamess d">Urine pH Medical </content>6.0 Center <content styleCode="Suzi lics"> (4.5-8.0 )</content> Hemoglobin NEGATIVE <content Saint [Presence] in styleCode="[place] Urine by Test d">Urine Blood Medical strip </content>MODE Center RATE <content styleCode="Suzi lics"> (NEGATIVE )</content> Urobilinogen 0.2-1.0 <content Saint [Units/volume] styleCode="[place] Jamess in Urine by d">Urine Medical Test strip Urobilinogen Center </content>0.2 MG/DL<content styleCode="Suzi lics"> (0.2-1.0 MG/DL)</conten t> Protein NEGATIVE <content Saint [Mass/volume] styleCode="[place] Jamess in Urine by d">Urine Medical Test strip Protein Center </content>30 MG/DL<content styleCode="Suzi lics"> (NEGATIVE MG/DL)</conten t> UNK 0-3 <content Saint styleCode="[place] True d">Urine Red Medical Blood Cell Center </content>20 - 50 HPF<content styleCode="Suzi lics"> (0-3 HPF)</content> Nitrite NEGATIVE <content Saint [Presence] in styleCode="[place] Jamess Urine by Test d">Urine Medical strip Nitrite Center </content>NEGA TIVE <content styleCode="Suzi lics"> (NEGATIVE )</content> Leukocyte NEGATIVE <content Saint esterase styleCode="[place] [Presence] in d">Urine Medical Urine by Test Leukocyte Center strip </content>NEGA TIVE <content styleCode="Suzi lics"> (NEGATIVE )</content> UNK 0-3 <content Saint styleCode="[place] True d">Urine White Medical Blood Cell Center </content>0-3 HPF<content styleCode="Suzi lics"> (0-3 HPF)</content> ID Date Data Source [id number] 04/14/2019 11:23:00 AM EST [facility] -0500 Name Value Range Interpretation Description Data Sup porting Code Source(s) Document(s ) Cannabinoids <content Saint [Presence] in styleCode="[place] Urine by Screen d">Cannabinoid Medical method >50 ng/mL s Center </content>NEGA TIVE NG/ML (Reference Range: not available)<br/ > ID Date Data Source [id number] 03/30/2019 12:00:00 AM EST [facility] ([facility]) Name Value Range Interpretation Description Data Sup porting Code Source(s) Document(s ) EOSINOPHYL ABSENT Abnormal (applies MEDGEN COUNT to non-numeric ([place] results) Medical Service) ID Date Data Source [id number] 03/30/2019 12:00:00 AM EST [facility] ([facility]) Name Value Range Interpretation Description Data Sup porting Code Source(s) Document(s ) TSH,3RD 0.99 Normal (applies to [facility]GEN GENERATION uIU/mL non-numeric ([place] results) Medical Service) T4 TOTAL 9.1 ug/dL Normal (applies to [facility] THYROXINE non-numeric ([place] results) Medical Service) T3 TOTAL 147 ng/dL Normal (applies to [facility]GEN non-numeric ([place] results) Medical Service) ID Date Data Source [id number] 03/30/2019 12:00:00 AM EST [facility] ([facility]) Name Value Range Interpretation Description Data Sup porting Code Source(s) Document(s ) SEX HORMONE 61.2 Above high normal MEDGEN BINDING GLOBU nmol/L ([facility] Medical Service) TESTOSTERONE 406.21 Normal (applies MEDGEN TOTAL ng/dL to non-numeric ([place] results) Medical Service) TESTOSTERONE 5.50 Normal (applies MEDGEN FREE CALCULATED ng/dL to non-numeric ([place] results) Medical Service) FREE 1.4 % Normal (applies MEDGEN TESTOSTERONE% to non-numeric ([place] results) Medical Service) ID Date Data Source [id number] 03/30/2019 12:00:00 AM EST [facility] ([facility]) Name Value Range Interpretation Description Data Sup porting Code Source(s) Document(s ) VITAMIN D 16.80 Below low normal [facility] 25-HYDROXY ng/mL ([place] [facility]) ID Date Data Source [id number] 03/30/2019 12:00:00 AM EST [facility] ([facility]) Name Value Range Interpretation Description Data Sup porting Code Source(s) Document(s ) VITAMIN B12 560 pg/mL Normal (applies to [facility]GEN non-numeric ([place] results) Medical Service) ID Date Data Source [id number] 03/30/2019 12:00:00 AM EST [facility] ([facility]) Name Value Range Interpretation Code Description Data Supporting Source(s) Document(s ) ALPHA FETO 5.4 ng/mL Normal (applies to [facility]GEN PROTEIN, non-numeric ([place] TUMOR results) Medical Service) ID Date Data Source [id number] 03/30/2019 12:00:00 AM EST [facility] ([facility]) Name Value Range Interpretation Code Description Data Supporting Source(s) Document(s ) PSA, TOTAL 1.71 ng/mL Normal (applies to [facility]GEN non-numeric ([place] results) Medical Service) ID Date Data Source [id number] 03/30/2019 12:00:00 AM EST [facility] ([facility]) Name Value Range Interpretation Code Description Data Supporting Source(s) Document(s ) FOLATE 17 ng/mL Normal (applies to [facility]GEN SERUM non-numeric ([place] results) Medical Service) ID Date Data Source [id number] 03/30/2019 12:00:00 AM EST [facility] ([facility]) Name Value Range Interpretation Description Data Sup porting Code Source(s) Document(s ) Cholesterol 129 Normal (applies [facility] [Moles/volume] mg/dL to non-numeric ([place] in Pericardial results) Medical fluid Service) LDL CALCULATION 72.0 Normal (applies [facility]GEN mg/dL to non-numeric ([place] results) Medical Service) CHOL/HDL RATIO 3.58 Normal (applies [facility]GEN ratio to non-numeric ([place] results) Medical Service) HDL CHOLESTEROL 36 mg/dL Below low normal [facility] ([place] [facility]) VLDL CALCULATION 21.0 Normal (applies [facility]GEN mg/dl to non-numeric ([place] results) Medical Service) TRIGLYCERIDES 105 Normal (applies [facility]GEN mg/dL to non-numeric ([place] results) Medical Service) ID Date Data Source [id number] 03/30/2019 12:00:00 AM EST [facility] ([facility]) Name Value Range Interpretation Description Data Sup porting Code Source(s) Document(s ) GLUCOSE UA NEGATIVE Normal (applies MEDGEN to non-numeric ([place] results) Medical Service) BILIRUBIN, TOTAL NEGATIVE Normal (applies [facility]GEN to non-numeric ([place] results) Medical Service) Ketones NEGATIVE Normal (applies MEDGEN [Presence] in to non-numeric ([place] Blood by Tablet results) Medical Service) Specific gravity 1.019 SG Normal (applies MEDGEN of Pericardial units to non-numeric ([place] fluid by results) Medical Refractometry Service) Blood [Presence] MODERATE Abnormal MEDGEN in Urine by (applies to ([place] Visual non-numeric Medical results) Service) pH of Lower 5 Ph units Normal (applies MEDGEN respiratory to non-numeric ([place] specimen results) Medical Service) Protein 30 mg/dL Abnormal MEDGEN [Mass/volume] in (applies to ([place] Lower non-numeric Medical respiratory results) Service) specimen Urobilinogen 0-2.0 Normal (applies MEDGEN [Presence] in to non-numeric ([place] Urine by results) Medical Automated test Service) strip Nitrite NEGATIVE Normal (applies MEDGEN [Presence] in to non-numeric ([place] Urine by Test results) Medical strip Service) Leukocyte NEGATIVE Normal (applies MEDGEN esterase to non-numeric ([place] [Presence] in results) Medical Body fluid by Service) Automated test strip Color of YELLOW Normal (applies MEDGEN Peritoneal to non-numeric ([place] dialysis fluid results) Medical Service) TRANSPARENCY SLIGHTLY-CL Abnormal MEDGEN OUDY (applies to ([place] non-numeric Medical results) Service) RBC`S 11-20 Abnormal MEDGEN (applies to ([place] non-numeric Medical results) Service) WBC`S 0-5 Normal (applies MEDGEN to non-numeric ([place] results) Medical Service) SQUAMOUS FEW Normal (applies MEDGEN EPITHELIAL to non-numeric ([place] results) Medical Service) MUCOUS FEW Normal (applies MEDGEN to non-numeric ([place] results) Medical Service) ID Date Data Source [id number] 03/30/2019 12:00:00 AM EST [facility] ([facility] Service) Name Value Range Interpretation Description Data Sup porting Code Source(s) Document(s ) WBC 4.2 Normal (applies MEDGEN 10(3)/uL to non-numeric ([place] results) Medical Service) RBC 5.4 Normal (applies [facility]GEN 10(6)/uL to non-numeric ([place] results) Medical Service) Hemoglobin 16.2 g/dL Normal (applies MEDGEN [Mass/volume] to non-numeric ([place] in Mixed venous results) Medical blood by Service) Oximetry Hematocrit 47.3 % Normal (applies MEDGEN [Pure volume to non-numeric ([place] fraction] of results) Medical Blood by Service) Automated count MCV 88.2 fL Normal (applies MEDGEN to non-numeric ([place] results) Medical Service) MCH 30 pg Normal (applies MEDGEN to non-numeric ([place] results) Medical Service) MCHC 34 g/dL Normal (applies MEDGEN to non-numeric ([place] results) Medical Service) RDWSD 43.8 fL Normal (applies MEDGEN to non-numeric ([place] results) Medical Service) RDWCV 13.7 % Normal (applies MEDGEN to non-numeric ([place] results) Medical Service) Platelet Count 105 Below low normal [facility]GEN 10(3)/uL ([place] [facility] Service) MPV 12.0 fL Normal (applies MEDGEN to non-numeric ([place] results) Medical Service) Neutrophil Abs 1.81 Normal (applies [facility]GEN 10(3)/uL to non-numeric ([place] results) Medical Service) Lymphocyte Abs 1.68 Normal (applies [facility]GEN 10(3)/uL to non-numeric ([place] results) Medical Service) Monocyte Abs 0.41 Normal (applies [facility]GEN 10(3)/uL to non-numeric ([place] results) Medical Service) Eosinophil Abs 0.32 Normal (applies [facility]GEN 10(3)/uL to non-numeric ([place] results) Medical Service) Basophil Abs 0.02 Normal (applies [facility]GEN 10(3)/uL to non-numeric ([place] results) Medical Service) Immature 0.00 Normal (applies MEDGEN Granulocyte Abs 10(3)/uL to non-numeric ([place] results) Medical Service) Neutrophil % 42.70 % Normal (applies [facility]GEN to non-numeric ([place] results) Medical Service) Lymphocyte % 40 % Normal (applies [facility]GEN to non-numeric ([place] results) Medical Service) Monocyte % 9.7 % Normal (applies MEDGEN to non-numeric ([place] results) Medical Service) Eosinophil % 7.5 % Above high normal MEDGEN ([place] [facility] Service) Basophil % 0.5 % Normal (applies MEDGEN to non-numeric ([place] results) Medical Service) Immature 0.00 % Normal (applies MEDGEN Granulocyte % to non-numeric ([place] results) Medical Service) NRBC % 0.0 % Normal (applies MEDGEN to non-numeric ([place] results) Medical Service) NRBC Abs 0.00 Normal (applies [facility]GEN 10(3)/uL to non-numeric ([place] results) Medical Service) ID Date Data Source [id number] 03/30/2019 12:00:00 AM EST [facility] ([facility]) Name Value Range Interpretation Code Description Data Supporting Source(s) Document(s ) GLYCOMARK 14.41 Normal (applies to MEDGEN ug/mL non-numeric ([place] results) Medical Service) ID Date Data Source [id number] 03/30/2019 12:00:00 AM EST [facility] ([facility]) Name Value Range Interpretation Description Data Sup porting Code Source(s) Document(s ) Hemoglobin A1c 5.7 % Above high normal MEDGEN in Blood ([place] [facility] Service) ID Date Data Source [id number] 03/30/2019 12:00:00 AM EST [facility] ([facility]) Name Value Range Interpretation Description Data Sup porting Code Source(s) Document(s ) GLUCOSE 151 Above high normal MEDGEN NONFASTING,SERUM mg/dL ([place] [facility] Service) SODIUM, SERUM 143 Normal (applies MEDGEN mEq/L to non-numeric ([place] results) Medical Service) POTASSIUM, SERUM 4.1 Normal (applies MEDGEN mEq/L to non-numeric ([place] results) Medical Service) CHLORIDE, SERUM 109 Normal (applies MEDGEN mEq/L to non-numeric ([place] results) Medical Service) Carbon dioxide 27 mEq/L Normal (applies MEDGEN [VFr/PPres] in to non-numeric ([place] Gas delivery results) Medical system Service) Anion gap in 11 mEq/L Normal (applies MEDGEN Body fluid to non-numeric ([place] results) Medical Service) BLOOD UREA 19 mg/dL Normal (applies MEDGEN NITROGEN to non-numeric ([place] results) Medical Service) CREATININE, 1.20 Normal (applies MEDGEN SERUM mg/dL to non-numeric ([place] results) Medical Service) CALCIUM, SERUM 8.8 Normal (applies MEDGEN mg/dL to non-numeric ([place] results) Medical Service) TOTAL PROTEIN 6.2 g/dL Normal (applies MEDGEN to non-numeric ([place] results) Medical Service) Microalbumin 4.1 g/dL Normal (applies MEDGEN [Mass/time] in to non-numeric ([place] Urine collected results) Medical for unspecified Service) duration Globulin 2.1 gldl Normal (applies MEDGEN [Mass/time] in to non-numeric ([place] 24 hour Urine results) Medical Service) A/G RATIO 1.95 Normal (applies MEDGEN g/dl to non-numeric ([place] results) Medical Service) BILIRUBIN, TOTAL 0.8 Normal (applies MEDGEN mg/dL to non-numeric ([place] results) Medical Service) ALKALINE 92 U/L Normal (applies [facility]GEN PHOSPHATASE, [facility]) ALT (SGPT) 63 U/L Above high normal MEDGEN ([place] [facility] Service) AST 41 U/L Above high normal MEDGEN ([place] [facility]) EGFR NON AFR 66 Normal (applies MEDGEN ICELANDIC mL/min/1 to non-numeric ([place] .73m2 results) Medical Service) EGFR AFR 79 Normal (applies MEDGEN ICELANDIC mL/min/1 to non-numeric ([place] .73m2 results) Medical Service) ID Date Data Source [id number] 03/30/2019 12:00:00 AM EST [facility] ([facility] [place] [facility]) Name Value Range Interpretation Description Data Sup porting Code Source(s) Document(s ) EOSINOPHYL ABSENT Abnormal (applies MEDGEN COUNT to non-numeric ([place] results) Medical Service) ID Date Data Source [id number] 03/30/2019 12:00:00 AM EST [facility] ([facility] [place] [facility]) Name Value Range Interpretation Description Data Sup porting Code Source(s) Document(s ) TSH,3RD 0.99 Normal (applies to MEDGEN GENERATION uIU/mL non-numeric ([place] results) Medical Service) T4 TOTAL 9.1 ug/dL Normal (applies to MEDGEN THYROXINE non-numeric ([place] results) Medical Service) T3 TOTAL 147 ng/dL Normal (applies to MEDGEN non-numeric ([place] results) Medical Service) ID Date Data Source [id number] 03/30/2019 12:00:00 AM EST [facility] ([facility]) Name Value Range Interpretation Description Data Sup porting Code Source(s) Document(s ) SEX HORMONE 61.2 Above high normal MEDGEN BINDING GLOBU nmol/L ([place] [facility] Service) TESTOSTERONE 406.21 Normal (applies MEDGEN TOTAL ng/dL to non-numeric ([place] results) Medical Service) TESTOSTERONE 5.50 Normal (applies MEDGEN FREE CALCULATED ng/dL to non-numeric ([place] results) Medical Service) FREE 1.4 % Normal (applies MEDGEN TESTOSTERONE% to non-numeric ([place] results) Medical Service) ID Date Data Source [id number] 03/30/2019 12:00:00 AM EST [facility] ([facility]) Name Value Range Interpretation Description Data Sup porting Code Source(s) Document(s ) VITAMIN D 16.80 Below low normal MEDGEN 25-HYDROXY ng/mL ([facility] Medical Service) ID Date Data Source [id number] 03/30/2019 12:00:00 AM EST [facility] ([facility]) Name Value Range Interpretation Description Data Sup porting Code Source(s) Document(s ) VITAMIN B12 560 pg/mL Normal (applies to MEDGEN non-numeric ([place] results) Medical Service) ID Date Data Source [id number] 03/30/2019 12:00:00 AM EST [facility] ([facility]) Name Value Range Interpretation Code Description Data Supporting Source(s) Document(s ) ALPHA FETO 5.4 ng/mL Normal (applies to MEDGEN PROTEIN, non-numeric ([place] TUMOR results) Medical Service) ID Date Data Source [id number] 03/30/2019 12:00:00 AM EST [facility] ([facility]) Name Value Range Interpretation Code Description Data Supporting Source(s) Document(s ) PSA, TOTAL 1.71 ng/mL Normal (applies to MEDGEN non-numeric ([place] results) Medical Service) ID Date Data Source [id number] 03/30/2019 12:00:00 AM EST [facility] ([facility] [employer] [facility]) Name Value Range Interpretation Code Description Data Supporting Source(s) Document(s ) FOLATE 17 ng/mL Normal (applies to MEDGEN SERUM non-numeric ([place] results) Medical Service) ID Date Data Source [id number] 03/30/2019 12:00:00 AM EST [facility] ([facility] [place] [facility]) Name Value Range Interpretation Description Data Sup porting Code Source(s) Document(s ) Cholesterol 129 Normal (applies MEDGEN [Moles/volume] mg/dL to non-numeric ([place] in Pericardial results) Medical fluid Service) LDL CALCULATION 72.0 Normal (applies MEDGEN mg/dL to non-numeric ([place] results) Medical Service) CHOL/HDL RATIO 3.58 Normal (applies MEDGEN ratio to non-numeric ([place] results) Medical Service) HDL CHOLESTEROL 36 mg/dL Below low normal [facility] ([place] [facility] Service) VLDL CALCULATION 21.0 Normal (applies MEDGEN mg/dl to non-numeric ([place] results) Medical Service) TRIGLYCERIDES 105 Normal (applies MEDGEN mg/dL to non-numeric ([place] results) Medical Service) ID Date Data Source [id number] 03/30/2019 12:00:00 AM EST [facility] ([facility]) Name Value Range Interpretation Description Data Sup porting Code Source(s) Document(s ) GLUCOSE UA NEGATIVE Normal (applies MEDGEN to non-numeric ([place] results) Medical Service) BILIRUBIN, TOTAL NEGATIVE Normal (applies MEDGEN to non-numeric ([place] results) Medical Service) Ketones NEGATIVE Normal (applies MEDGEN [Presence] in to non-numeric ([place] Blood by Tablet results) Medical Service) Specific gravity 1.019 SG Normal (applies MEDGEN of Pericardial units to non-numeric ([place] fluid by results) Medical Refractometry Service) Blood [Presence] MODERATE Abnormal MEDGEN in Urine by (applies to ([place] Visual non-numeric Medical results) Service) pH of Lower 5 Ph units Normal (applies MEDGEN respiratory to non-numeric ([place] specimen results) Medical Service) Protein 30 mg/dL Abnormal MEDGEN [Mass/volume] in (applies to ([place] Lower non-numeric Medical respiratory results) Service) specimen Urobilinogen 0-2.0 Normal (applies MEDGEN [Presence] in to non-numeric ([place] Urine by results) Medical Automated test Service) strip Nitrite NEGATIVE Normal (applies MEDGEN [Presence] in to non-numeric ([place] Urine by Test results) Medical strip Service) Leukocyte NEGATIVE Normal (applies MEDGEN esterase to non-numeric ([place] [Presence] in results) Medical Body fluid by Service) Automated test strip Color of YELLOW Normal (applies MEDGEN Peritoneal to non-numeric ([place] dialysis fluid results) Medical Service) TRANSPARENCY SLIGHTLY-CL Abnormal MEDGEN OUDY (applies to ([place] non-numeric Medical results) Service) RBC`S 11-20 Abnormal MEDGEN (applies to ([place] non-numeric Medical results) Service) WBC`S 0-5 Normal (applies MEDGEN to non-numeric ([place] results) Medical Service) SQUAMOUS FEW Normal (applies MEDGEN EPITHELIAL to non-numeric ([facility] results) Medical Service) MUCOUS FEW Normal (applies MEDGEN to non-numeric ([place] results) Medical Service) ID Date Data Source [id number] 03/30/2019 12:00:00 AM EST [facility] ([facility] Medical Service) Name Value Range Interpretation Description Data Sup porting Code Source(s) Document(s ) WBC 4.2 Normal (applies MEDGEN 10(3)/uL to non-numeric ([place] results) Medical Service) RBC 5.4 Normal (applies MEDGEN 10(6)/uL to non-numeric ([place] results) Medical Service) Hemoglobin 16.2 g/dL Normal (applies MEDGEN [Mass/volume] to non-numeric ([place] in Mixed venous results) Medical blood by Service) Oximetry Hematocrit 47.3 % Normal (applies MEDGEN [Pure volume to non-numeric ([place] fraction] of results) Medical Blood by Service) Automated count MCV 88.2 fL Normal (applies MEDGEN to non-numeric ([place] results) Medical Service) MCH 30 pg Normal (applies MEDGEN to non-numeric ([place] results) Medical Service) MCHC 34 g/dL Normal (applies MEDGEN to non-numeric ([place] results) Medical Service) RDWSD 43.8 fL Normal (applies MEDGEN to non-numeric ([place] results) Medical Service) RDWCV 13.7 % Normal (applies MEDGEN to non-numeric ([place] results) Medical Service) Platelet Count 105 Below low normal MEDGEN 10(3)/uL ([place] [facility] Service) MPV 12.0 fL Normal (applies MEDGEN to non-numeric ([place] results) Medical Service) Neutrophil Abs 1.81 Normal (applies MEDGEN 10(3)/uL to non-numeric ([place] results) Medical Service) Lymphocyte Abs 1.68 Normal (applies MEDGEN 10(3)/uL to non-numeric ([place] results) Medical Service) Monocyte Abs 0.41 Normal (applies MEDGEN 10(3)/uL to non-numeric ([place] results) Medical Service) Eosinophil Abs 0.32 Normal (applies MEDGEN 10(3)/uL to non-numeric ([place] results) Medical Service) Basophil Abs 0.02 Normal (applies MEDGEN 10(3)/uL to non-numeric ([place] results) Medical Service) Immature 0.00 Normal (applies MEDGEN Granulocyte Abs 10(3)/uL to non-numeric ([place] results) Medical Service) Neutrophil % 42.70 % Normal (applies MEDGEN to non-numeric ([place] results) Medical Service) Lymphocyte % 40 % Normal (applies MEDGEN to non-numeric ([place] results) Medical Service) Monocyte % 9.7 % Normal (applies MEDGEN to non-numeric ([place] results) Medical Service) Eosinophil % 7.5 % Above high normal MEDGEN ([facility]) Basophil % 0.5 % Normal (applies MEDGEN to non-numeric ([place] results) Medical Service) Immature 0.00 % Normal (applies MEDGEN Granulocyte % to non-numeric ([place] results) Medical Service) NRBC % 0.0 % Normal (applies MEDGEN to non-numeric ([facility] results) Medical Service) NRBC Abs 0.00 Normal (applies MEDGEN 10(3)/uL to non-numeric ([facility] results) Medical Service) ID Date Data Source [id number] 03/30/2019 12:00:00 AM EST MEDGEN ([facility]) Name Value Range Interpretation Code Description Data Supporting Source(s) Document(s ) GLYCOMARK 14.41 Normal (applies to MEDGEN ug/mL non-numeric ([facility] results) Medical Service) ID Date Data Source [id number] 03/30/2019 12:00:00 AM EST MEDGEN ([facility]) Name Value Range Interpretation Description Data Sup porting Code Source(s) Document(s ) Hemoglobin A1c 5.7 % Above high normal MEDGEN in Blood ([place] [facility]) ID Date Data Source [id number] 03/30/2019 12:00:00 AM EST MEDGEN ([facility]) Name Value Range Interpretation Description Data Sup porting Code Source(s) Document(s ) GLUCOSE 151 Above high normal MEDGEN NONFASTING,SERUM mg/dL ([place] [facility]) SODIUM, SERUM 143 Normal (applies MEDGEN mEq/L to non-numeric ([place] results) Medical Service) POTASSIUM, SERUM 4.1 Normal (applies MEDGEN mEq/L to non-numeric ([facility]) Medical Service) CHLORIDE, SERUM 109 Normal (applies MEDGEN mEq/L to non-numeric ([place] results) Medical Service) Carbon dioxide 27 mEq/L Normal (applies MEDGEN [VFr/PPres] in to non-numeric ([place] [facility] results) Medical system Service) Anion gap in 11 mEq/L Normal (applies MEDGEN Body fluid to non-numeric ([place] results) Medical Service) BLOOD UREA 19 mg/dL Normal (applies MEDGEN NITROGEN to non-numeric ([facility]) Medical Service) CREATININE, 1.20 Normal (applies MEDGEN SERUM mg/dL to non-numeric ([facility]) Medical Service) CALCIUM, SERUM 8.8 Normal (applies MEDGEN mg/dL to non-numeric ([facility]) Medical Service) TOTAL PROTEIN 6.2 g/dL Normal (applies MEDGEN to non-numeric ([facility]) Medical Service) Microalbumin 4.1 g/dL Normal (applies MEDGEN [Mass/time] in to non-numeric ([place] Urine collected results) Medical for unspecified Service) duration Globulin 2.1 gldl Normal (applies MEDGEN [Mass/time] in to non-numeric ([place] 24 hour Urine results) Medical Service) A/G RATIO 1.95 Normal (applies MEDGEN g/dl to non-numeric ([place] results) Medical Service) BILIRUBIN, TOTAL 0.8 Normal (applies MEDGEN mg/dL to non-numeric ([facility]) Medical Service) ALKALINE 92 U/L Normal (applies MEDGEN PHOSPHATASE, ALP to non-numeric ([facility] y results) Medical Service) ALT (SGPT) 63 U/L Above high normal MEDGEN ([facility]) AST 41 U/L Above high normal MEDGEN ([facility]) EGFR NON AFR 66 Normal (applies MEDGEN ICELANDIC mL/min/1 to non-numeric ([facility] .73m2 results) Medical Service) EGFR AFR 79 Normal (applies MEDGEN ICELANDIC mL/min/1 to non-numeric ([facility] .73m2 results) Medical Service) ID Date Data Source [id number] 03/30/2019 12:00:00 AM EST MEDGEN ([facility]) Name Value Range Interpretation Description Data Sup porting Code Source(s) Document(s ) EOSINOPHYL ABSENT Abnormal (applies MEDGEN COUNT to non-numeric ([facility] results) Medical Service) ID Date Data Source [id number] 03/30/2019 12:00:00 AM EST MEDGEN ([facility]) Name Value Range Interpretation Description Data Sup porting Code Source(s) Document(s ) TSH,3RD 0.99 Normal (applies to MEDGEN GENERATION uIU/mL non-numeric ([place] results) Medical Service) T4 TOTAL 9.1 ug/dL Normal (applies to MEDGEN THYROXINE non-numeric ([place] results) Medical Service) T3 TOTAL 147 ng/dL Normal (applies to MEDGEN non-numeric ([place] results) Medical Service) ID Date Data Source [id number] 03/30/2019 12:00:00 AM EST MEDGEN ([facility]) Name Value Range Interpretation Description Data Sup porting Code Source(s) Document(s ) SEX HORMONE 61.2 Above high normal MEDGEN BINDING GLOBU nmol/L ([facility]) TESTOSTERONE 406.21 Normal (applies MEDGEN TOTAL ng/dL to non-numeric ([facility] results) Medical Service) TESTOSTERONE 5.50 Normal (applies MEDGEN FREE CALCULATED ng/dL to non-numeric ([facility] results) Medical Service) FREE 1.4 % Normal (applies MEDGEN TESTOSTERONE% to non-numeric ([place] results) Medical Service) ID Date Data Source [id number] 03/30/2019 12:00:00 AM EST MEDGEN ([facility]) Name Value Range Interpretation Description Data Sup porting Code Source(s) Document(s ) VITAMIN D 16.80 Below low normal MEDGEN 25-HYDROXY ng/mL ([facility]) ID Date Data Source [id number] 03/30/2019 12:00:00 AM EST MEDGEN ([facility]) Name Value Range Interpretation Description Data Sup porting Code Source(s) Document(s ) VITAMIN B12 560 pg/mL Normal (applies to MEDGEN non-numeric ([place] results) Medical Service) ID Date Data Source [id number] 03/30/2019 12:00:00 AM EST MEDGEN ([facility] Medical Service) Name Value Range Interpretation Code Description Data Supporting Source(s) Document(s ) ALPHA FETO 5.4 ng/mL Normal (applies to MEDGEN PROTEIN, non-numeric ([facility] TUMOR results) Medical Service) ID Date Data Source [id number] 03/30/2019 12:00:00 AM EST MEDGEN ([facility]) Name Value Range Interpretation Code Description Data Supporting Source(s) Document(s ) PSA, TOTAL 1.71 ng/mL Normal (applies to MEDGEN non-numeric ([place] results) Medical Service) ID Date Data Source [id number] 03/30/2019 12:00:00 AM EST MEDGEN ([facility]) Name Value Range Interpretation Code Description Data Supporting Source(s) Document(s ) FOLATE 17 ng/mL Normal (applies to MEDGEN SERUM non-numeric ([place] results) Medical Service) ID Date Data Source [id number] 03/30/2019 12:00:00 AM EST MEDGEN ([facility]) Name Value Range Interpretation Description Data Sup porting Code Source(s) Document(s ) Cholesterol 129 Normal (applies MEDGEN [Moles/volume] mg/dL to non-numeric ([place] in Pericardial results) Medical fluid Service) LDL CALCULATION 72.0 Normal (applies MEDGEN mg/dL to non-numeric ([place] results) Medical Service) CHOL/HDL RATIO 3.58 Normal (applies MEDGEN ratio to non-numeric ([place] results) Medical Service) HDL CHOLESTEROL 36 mg/dL Below low normal MEDGEN ([facility]) VLDL CALCULATION 21.0 Normal (applies MEDGEN mg/dl to non-numeric ([place] results) Medical Service) TRIGLYCERIDES 105 Normal (applies MEDGEN mg/dL to non-numeric ([place] results) Medical Service) ID Date Data Source [id number] 03/30/2019 12:00:00 AM EST MEDGEN ([facility] Medical Service) Name Value Range Interpretation Description Data Sup porting Code Source(s) Document(s ) GLUCOSE UA NEGATIVE Normal (applies MEDGEN to non-numeric ([place] results) Medical Service) BILIRUBIN, TOTAL NEGATIVE Normal (applies MEDGEN to non-numeric ([place] results) Medical Service) Ketones NEGATIVE Normal (applies MEDGEN [Presence] in to non-numeric ([facility] Blood by Tablet results) Medical Service) Specific gravity 1.019 SG Normal (applies MEDGEN of Pericardial units to non-numeric ([place] fluid by results) Medical Refractometry Service) Blood [Presence] MODERATE Abnormal MEDGEN in Urine by (applies to ([place] Visual non-numeric Medical results) Service) pH of Lower 5 Ph units Normal (applies MEDGEN respiratory to non-numeric ([place] specimen results) Medical Service) Protein 30 mg/dL Abnormal MEDGEN [Mass/volume] in (applies to ([facility] Lower non-numeric Medical respiratory results) Service) specimen Urobilinogen 0-2.0 Normal (applies MEDGEN [Presence] in to non-numeric ([place] Urine by results) Medical Automated test Service) strip Nitrite NEGATIVE Normal (applies MEDGEN [Presence] in to non-numeric ([facility] Urine by Test results) Medical strip Service) Leukocyte NEGATIVE Normal (applies MEDGEN esterase to non-numeric ([place] [Presence] in results) Medical Body fluid by Service) Automated test strip Color of YELLOW Normal (applies MEDGEN Peritoneal to non-numeric ([facility] dialysis fluid results) Medical Service) TRANSPARENCY SLIGHTLY-CL Abnormal MEDGEN OUDY (applies to ([place] non-numeric Medical results) Service) RBC`S 11-20 Abnormal MEDGEN (applies to ([place] non-numeric Medical results) Service) WBC`S 0-5 Normal (applies MEDGEN to non-numeric ([place] results) Medical Service) SQUAMOUS FEW Normal (applies MEDGEN EPITHELIAL to non-numeric ([place] results) Medical Service) MUCOUS FEW Normal (applies MEDGEN to non-numeric ([place] results) Medical Service) ID Date Data Source [id number] 03/30/2019 12:00:00 AM EST MEDGEN ([facility]) Name Value Range Interpretation Description Data Sup porting Code Source(s) Document(s ) WBC 4.2 Normal (applies MEDGEN 10(3)/uL to non-numeric ([place] results) Medical Service) RBC 5.4 Normal (applies MEDGEN 10(6)/uL to non-numeric ([place] results) Medical Service) Hemoglobin 16.2 g/dL Normal (applies MEDGEN [Mass/volume] to non-numeric ([place] in Mixed venous results) Medical blood by Service) Oximetry Hematocrit 47.3 % Normal (applies MEDGEN [Pure volume to non-numeric ([place] fraction] of results) Medical Blood by Service) Automated count MCV 88.2 fL Normal (applies MEDGEN to non-numeric ([place] results) Medical Service) MCH 30 pg Normal (applies MEDGEN to non-numeric ([place] results) Medical Service) MCHC 34 g/dL Normal (applies MEDGEN to non-numeric ([place] results) Medical Service) RDWSD 43.8 fL Normal (applies MEDGEN to non-numeric ([place] results) Medical Service) RDWCV 13.7 % Normal (applies MEDGEN to non-numeric ([place] results) Medical Service) Platelet Count 105 Below low normal MEDGEN 10(3)/uL ([facility]) MPV 12.0 fL Normal (applies MEDGEN to non-numeric ([place] results) Medical Service) Neutrophil Abs 1.81 Normal (applies MEDGEN 10(3)/uL to non-numeric ([place] results) Medical Service) Lymphocyte Abs 1.68 Normal (applies MEDGEN 10(3)/uL to non-numeric ([place] results) Medical Service) Monocyte Abs 0.41 Normal (applies MEDGEN 10(3)/uL to non-numeric ([place] results) Medical Service) Eosinophil Abs 0.32 Normal (applies MEDGEN 10(3)/uL to non-numeric ([place] results) Medical Service) Basophil Abs 0.02 Normal (applies MEDGEN 10(3)/uL to non-numeric ([place] results) Medical Service) Immature 0.00 Normal (applies MEDGEN Granulocyte Abs 10(3)/uL to non-numeric ([place] results) Medical Service) Neutrophil % 42.70 % Normal (applies MEDGEN to non-numeric ([place] results) Medical Service) Lymphocyte % 40 % Normal (applies MEDGEN to non-numeric ([place] results) Medical Service) Monocyte % 9.7 % Normal (applies MEDGEN to non-numeric ([place] results) Medical Service) Eosinophil % 7.5 % Above high normal MEDGEN ([facility]) Basophil % 0.5 % Normal (applies MEDGEN to non-numeric ([place] results) Medical Service) Immature 0.00 % Normal (applies MEDGEN Granulocyte % to non-numeric ([place] results) Medical Service) NRBC % 0.0 % Normal (applies MEDGEN to non-numeric ([place] results) Medical Service) NRBC Abs 0.00 Normal (applies MEDGEN 10(3)/uL to non-numeric ([place] results) Medical Service) ID Date Data Source [id number] 03/30/2019 12:00:00 AM EST MEDGEN ([facility]) Name Value Range Interpretation Code Description Data Supporting Source(s) Document(s ) GLYCOMARK 14.41 Normal (applies to MEDGEN ug/mL non-numeric ([place] results) Medical Service) ID Date Data Source [id number] 03/30/2019 12:00:00 AM EST MEDGEN ([facility]) Name Value Range Interpretation Description Data Sup porting Code Source(s) Document(s ) Hemoglobin A1c 5.7 % Above high normal MEDGEN in Blood ([place] [facility]) ID Date Data Source [id number] 03/30/2019 12:00:00 AM EST MEDGEN ([facility]) Name Value Range Interpretation Description Data Sup porting Code Source(s) Document(s ) GLUCOSE 151 Above high normal MEDGEN NONFASTING,SERUM mg/dL ([place] [facility]) SODIUM, SERUM 143 Normal (applies MEDGEN mEq/L to non-numeric ([place] results) Medical Service) POTASSIUM, SERUM 4.1 Normal (applies MEDGEN mEq/L to non-numeric ([place] results) Medical Service) CHLORIDE, SERUM 109 Normal (applies MEDGEN mEq/L to non-numeric ([place] results) Medical Service) Carbon dioxide 27 mEq/L Normal (applies MEDGEN [VFr/PPres] in to non-numeric ([place] [facility] results) Medical system Service) Anion gap in 11 mEq/L Normal (applies MEDGEN Body fluid to non-numeric ([place] results) Medical Service) BLOOD UREA 19 mg/dL Normal (applies MEDGEN NITROGEN to non-numeric ([place] results) Medical Service) CREATININE, 1.20 Normal (applies MEDGEN SERUM mg/dL to non-numeric ([place] results) Medical Service) CALCIUM, SERUM 8.8 Normal (applies MEDGEN mg/dL to non-numeric ([place] results) Medical Service) TOTAL PROTEIN 6.2 g/dL Normal (applies MEDGEN to non-numeric ([place] results) Medical Service) Microalbumin 4.1 g/dL Normal (applies MEDGEN [Mass/time] in to non-numeric ([place] Urine collected results) Medical for unspecified Service) duration Globulin 2.1 gldl Normal (applies MEDGEN [Mass/time] in to non-numeric ([place] 24 hour Urine results) Medical Service) A/G RATIO 1.95 Normal (applies MEDGEN g/dl to non-numeric ([place] results) Medical Service) BILIRUBIN, TOTAL 0.8 Normal (applies MEDGEN mg/dL to non-numeric ([place] results) Medical Service) ALKALINE 92 U/L Normal (applies [facility] PHOSPHATASE, [facility]) ALT (SGPT) 63 U/L Above high normal MEDGEN ([place] [facility]) AST 41 U/L Above high normal MEDGEN ([place] [facility]) EGFR NON AFR 66 Normal (applies MEDGEN ICELANDIC mL/min/1 to non-numeric ([facility] .73m2 results) Medical Service) EGFR AFR 79 Normal (applies MEDGEN ICELANDIC mL/min/1 to non-numeric ([place] .73m2 results) Medical Service) ID Date Data Source [id number] 03/30/2019 12:00:00 AM EST MEDGEN ([facility]) Name Value Range Interpretation Description Data Sup porting Code Source(s) Document(s ) EOSINOPHYL ABSENT Abnormal (applies MEDGEN COUNT to non-numeric ([place] results) Medical Service) ID Date Data Source [id number] 03/30/2019 12:00:00 AM EST MEDGEN ([facility]) Name Value Range Interpretation Description Data Sup porting Code Source(s) Document(s ) TSH,3RD 0.99 Normal (applies to MEDGEN GENERATION uIU/mL non-numeric ([place] results) Medical Service) T4 TOTAL 9.1 ug/dL Normal (applies to MEDGEN THYROXINE non-numeric ([place] results) Medical Service) T3 TOTAL 147 ng/dL Normal (applies to MEDGEN non-numeric ([place] results) Medical Service) ID Date Data Source [id number] 03/30/2019 12:00:00 AM EST MEDGEN ([facility]) Name Value Range Interpretation Description Data Sup porting Code Source(s) Document(s ) SEX HORMONE 61.2 Above high normal MEDGEN BINDING GLOBU nmol/L ([place] [facility]) TESTOSTERONE 406.21 Normal (applies MEDGEN TOTAL ng/dL to non-numeric ([place] results) Medical Service) TESTOSTERONE 5.50 Normal (applies MEDGEN FREE CALCULATED ng/dL to non-numeric ([place] results) Medical Service) FREE 1.4 % Normal (applies MEDGEN TESTOSTERONE% to non-numeric ([place] results) Medical Service) ID Date Data Source [id number] 03/30/2019 12:00:00 AM EST [facility] ([facility]) Name Value Range Interpretation Description Data Sup porting Code Source(s) Document(s ) VITAMIN D 16.80 Below low normal MEDGEN 25-HYDROXY ng/mL ([facility]) ID Date Data Source [id number] 03/30/2019 12:00:00 AM EST [facility]GEN ([facility]) Name Value Range Interpretation Description Data Sup porting Code Source(s) Document(s ) VITAMIN B12 560 pg/mL Normal (applies to MEDGEN non-numeric ([place] results) Medical Service) ID Date Data Source [id number] 03/30/2019 12:00:00 AM EST [facility]GEN ([facility]) Name Value Range Interpretation Code Description Data Supporting Source(s) Document(s ) ALPHA FETO 5.4 ng/mL Normal (applies to MEDGEN PROTEIN, non-numeric ([place] TUMOR results) Medical Service) ID Date Data Source [id number] 03/30/2019 12:00:00 AM EST [facility]GEN ([facility]) Name Value Range Interpretation Code Description Data Supporting Source(s) Document(s ) PSA, TOTAL 1.71 ng/mL Normal (applies to MEDGEN non-numeric ([place] results) Medical Service) ID Date Data Source [id number] 03/30/2019 12:00:00 AM EST [facility]GEN ([facility]) Name Value Range Interpretation Code Description Data Supporting Source(s) Document(s ) FOLATE 17 ng/mL Normal (applies to MEDGEN SERUM non-numeric ([place] results) Medical Service) ID Date Data Source [id number] 03/30/2019 12:00:00 AM EST [facility]GEN ([facility]) Name Value Range Interpretation Description Data Sup porting Code Source(s) Document(s ) Cholesterol 129 Normal (applies MEDGEN [Moles/volume] mg/dL to non-numeric ([place] in Pericardial results) Medical fluid Service) LDL CALCULATION 72.0 Normal (applies MEDGEN mg/dL to non-numeric ([place] results) Medical Service) CHOL/HDL RATIO 3.58 Normal (applies MEDGEN ratio to non-numeric ([place] results) Medical Service) HDL CHOLESTEROL 36 mg/dL Below low normal MEDGEN ([place] [facility]) VLDL CALCULATION 21.0 Normal (applies MEDGEN mg/dl to non-numeric ([place] results) Medical Service) TRIGLYCERIDES 105 Normal (applies MEDGEN mg/dL to non-numeric ([place] results) Medical Service) ID Date Data Source [id number] 03/30/2019 12:00:00 AM EST MEDGEN ([facility]) Name Value Range Interpretation Description Data Sup porting Code Source(s) Document(s ) GLUCOSE UA NEGATIVE Normal (applies MEDGEN to non-numeric ([place] results) Medical Service) BILIRUBIN, TOTAL NEGATIVE Normal (applies MEDGEN to non-numeric ([place] results) Medical Service) Ketones NEGATIVE Normal (applies MEDGEN [Presence] in to non-numeric ([place] Blood by Tablet results) Medical Service) Specific gravity 1.019 SG Normal (applies MEDGEN of Pericardial units to non-numeric ([place] fluid by results) Medical Refractometry Service) Blood [Presence] MODERATE Abnormal MEDGEN in Urine by (applies to ([place] Visual non-numeric Medical results) Service) pH of Lower 5 Ph units Normal (applies MEDGEN respiratory to non-numeric ([place] specimen results) Medical Service) Protein 30 mg/dL Abnormal MEDGEN [Mass/volume] in (applies to ([place] Lower non-numeric Medical respiratory results) Service) specimen Urobilinogen 0-2.0 Normal (applies MEDGEN [Presence] in to non-numeric ([place] Urine by results) Medical Automated test Service) strip Nitrite NEGATIVE Normal (applies MEDGEN [Presence] in to non-numeric ([place] Urine by Test results) Medical strip Service) Leukocyte NEGATIVE Normal (applies MEDGEN esterase to non-numeric ([place] [Presence] in results) Medical Body fluid by Service) Automated test strip Color of YELLOW Normal (applies MEDGEN Peritoneal to non-numeric ([place] dialysis fluid results) Medical Service) TRANSPARENCY SLIGHTLY-CL Abnormal MEDGEN OUDY (applies to ([place] non-numeric Medical results) Service) RBC`S 11-20 Abnormal MEDGEN (applies to ([place] non-numeric Medical results) Service) WBC`S 0-5 Normal (applies MEDGEN to non-numeric ([place] results) Medical Service) SQUAMOUS FEW Normal (applies MEDGEN EPITHELIAL to non-numeric ([place] results) Medical Service) MUCOUS FEW Normal (applies MEDGEN to non-numeric ([place] results) Medical Service) ID Date Data Source [id number] 03/30/2019 12:00:00 AM EST MEDGEN ([facility] Service) Name Value Range Interpretation Description Data Sup porting Code Source(s) Document(s ) WBC 4.2 Normal (applies MEDGEN 10(3)/uL to non-numeric ([place] results) Medical Service) RBC 5.4 Normal (applies MEDGEN 10(6)/uL to non-numeric ([place] results) Medical Service) Hemoglobin 16.2 g/dL Normal (applies MEDGEN [Mass/volume] to non-numeric ([place] in Mixed venous results) Medical blood by Service) Oximetry Hematocrit 47.3 % Normal (applies MEDGEN [Pure volume to non-numeric ([place] fraction] of results) Medical Blood by Service) Automated count MCV 88.2 fL Normal (applies MEDGEN to non-numeric ([place] results) Medical Service) MCH 30 pg Normal (applies MEDGEN to non-numeric ([place] results) Medical Service) MCHC 34 g/dL Normal (applies MEDGEN to non-numeric ([place] results) Medical Service) RDWSD 43.8 fL Normal (applies MEDGEN to non-numeric ([place] results) Medical Service) RDWCV 13.7 % Normal (applies MEDGEN to non-numeric ([place] results) Medical Service) Platelet Count 105 Below low normal MEDGEN 10(3)/uL ([place] [facility]) MPV 12.0 fL Normal (applies MEDGEN to non-numeric ([place] results) Medical Service) Neutrophil Abs 1.81 Normal (applies MEDGEN 10(3)/uL to non-numeric ([place] results) Medical Service) Lymphocyte Abs 1.68 Normal (applies MEDGEN 10(3)/uL to non-numeric ([place] results) Medical Service) Monocyte Abs 0.41 Normal (applies MEDGEN 10(3)/uL to non-numeric ([place] results) Medical Service) Eosinophil Abs 0.32 Normal (applies MEDGEN 10(3)/uL to non-numeric ([place] results) Medical Service) Basophil Abs 0.02 Normal (applies MEDGEN 10(3)/uL to non-numeric ([place] results) Medical Service) Immature 0.00 Normal (applies MEDGEN Granulocyte Abs 10(3)/uL to non-numeric ([place] results) Medical Service) Neutrophil % 42.70 % Normal (applies MEDGEN to non-numeric ([place] results) Medical Service) Lymphocyte % 40 % Normal (applies MEDGEN to non-numeric ([place] results) Medical Service) Monocyte % 9.7 % Normal (applies MEDGEN to non-numeric ([place] results) Medical Service) Eosinophil % 7.5 % Above high normal MEDGEN ([place] [facility]) Basophil % 0.5 % Normal (applies MEDGEN to non-numeric ([place] results) Medical Service) Immature 0.00 % Normal (applies MEDGEN Granulocyte % to non-numeric ([place] results) Medical Service) NRBC % 0.0 % Normal (applies MEDGEN to non-numeric ([place] results) Medical Service) NRBC Abs 0.00 Normal (applies MEDGEN 10(3)/uL to non-numeric ([place] results) Medical Service) ID Date Data Source [id number] 03/30/2019 12:00:00 AM EST [facility] ([facility]) Name Value Range Interpretation Code Description Data Supporting Source(s) Document(s ) GLYCOMARK 14.41 Normal (applies to MEDGEN ug/mL non-numeric ([place] results) Medical Service) ID Date Data Source [id number] 03/30/2019 12:00:00 AM EST [facility] ([facility]) Name Value Range Interpretation Description Data Sup porting Code Source(s) Document(s ) Hemoglobin A1c 5.7 % Above high normal MEDGEN in Blood ([place] [facility]) ID Date Data Source [id number] 03/30/2019 12:00:00 AM EST [facility] ([facility]) Name Value Range Interpretation Description Data Sup porting Code Source(s) Document(s ) GLUCOSE 151 Above high normal MEDGEN NONFASTING,SERUM mg/dL ([place] [facility]) SODIUM, SERUM 143 Normal (applies MEDGEN mEq/L to non-numeric ([place] results) Medical Service) POTASSIUM, SERUM 4.1 Normal (applies MEDGEN mEq/L to non-numeric ([place] results) Medical Service) CHLORIDE, SERUM 109 Normal (applies MEDGEN mEq/L to non-numeric ([place] results) Medical Service) Carbon dioxide 27 mEq/L Normal (applies MEDGEN [VFr/PPres] in to non-numeric ([place] Gas delivery results) Medical system Service) Anion gap in 11 mEq/L Normal (applies MEDGEN Body fluid to non-numeric ([place] results) Medical Service) BLOOD UREA 19 mg/dL Normal (applies MEDGEN NITROGEN to non-numeric ([place] results) Medical Service) CREATININE, 1.20 Normal (applies MEDGEN SERUM mg/dL to non-numeric ([place] results) Medical Service) CALCIUM, SERUM 8.8 Normal (applies MEDGEN mg/dL to non-numeric ([place] results) Medical Service) TOTAL PROTEIN 6.2 g/dL Normal (applies MEDGEN to non-numeric ([place] results) Medical Service) Microalbumin 4.1 g/dL Normal (applies MEDGEN [Mass/time] in to non-numeric ([place] Urine collected results) Medical for unspecified Service) duration Globulin 2.1 gldl Normal (applies MEDGEN [Mass/time] in to non-numeric ([place] 24 hour Urine results) Medical Service) A/G RATIO 1.95 Normal (applies MEDGEN g/dl to non-numeric ([place] results) Medical Service) BILIRUBIN, TOTAL 0.8 Normal (applies MEDGEN mg/dL to non-numeric ([place] results) Medical Service) ALKALINE 92 U/L Normal (applies [facility]) ALT (SGPT) 63 U/L Above high normal MEDGEN ([place] [facility]) AST 41 U/L Above high normal MEDGEN ([place] [facility]) EGFR NON AFR 66 Normal (applies MEDGEN ICELANDIC mL/min/1 to non-numeric ([place] .73m2 results) Medical Service) EGFR AFR 79 Normal (applies MEDGEN ICELANDIC mL/min/1 to non-numeric ([place] .73m2 results) Medical Service) ID Date Data Source [id number] 03/30/2019 12:00:00 AM EST MEDGEN ([facility]) Name Value Range Interpretation Description Data Sup porting Code Source(s) Document(s ) EOSINOPHYL ABSENT Abnormal (applies MEDGEN COUNT to non-numeric ([place] results) Medical Service) ID Date Data Source [id number] 03/30/2019 12:00:00 AM EST MEDGEN ([facility]) Name Value Range Interpretation Description Data Sup porting Code Source(s) Document(s ) TSH,3RD 0.99 Normal (applies to MEDGEN GENERATION uIU/mL non-numeric ([place] results) Medical Service) T4 TOTAL 9.1 ug/dL Normal (applies to MEDGEN THYROXINE non-numeric ([place] results) Medical Service) T3 TOTAL 147 ng/dL Normal (applies to MEDGEN non-numeric ([place] results) Medical Service) ID Date Data Source [id number] 03/30/2019 12:00:00 AM EST MEDGEN ([employer]) Name Value Range Interpretation Description Data Sup porting Code Source(s) Document(s ) SEX HORMONE 61.2 Above high normal MEDGEN BINDING GLOBU nmol/L ([place] Service) TESTOSTERONE 406.21 Normal (applies MEDGEN TOTAL ng/dL to non-numeric ([place] results) Medical Service) TESTOSTERONE 5.50 Normal (applies MEDGEN FREE CALCULATED ng/dL to non-numeric ([place] results) Medical Service) FREE 1.4 % Normal (applies MEDGEN TESTOSTERONE% to non-numeric ([place] results) Medical Service) ID Date Data Source [id number] 03/30/2019 12:00:00 AM EST MEDGEN ([employer]) Name Value Range Interpretation Description Data Sup porting Code Source(s) Document(s ) VITAMIN D 16.80 Below low normal MEDGEN 25-HYDROXY ng/mL ([facility] Service) ID Date Data Source [id number] 03/30/2019 12:00:00 AM EST MEDGEN ([employer]) Name Value Range Interpretation Description Data Sup porting Code Source(s) Document(s ) VITAMIN B12 560 pg/mL Normal (applies to MEDGEN non-numeric ([place] results) Medical Service) ID Date Data Source [id number] 03/30/2019 12:00:00 AM EST MEDGEN ([employer]) Name Value Range Interpretation Code Description Data Supporting Source(s) Document(s ) ALPHA FETO 5.4 ng/mL Normal (applies to MEDGEN PROTEIN, non-numeric ([place] TUMOR results) Medical Service) ID Date Data Source [id number] 03/30/2019 12:00:00 AM EST MEDGEN ([facility]) Name Value Range Interpretation Code Description Data Supporting Source(s) Document(s ) PSA, TOTAL 1.71 ng/mL Normal (applies to MEDGEN non-numeric ([place] results) Medical Service) ID Date Data Source [id number] 03/30/2019 12:00:00 AM EST MEDGEN ([facility] [employer] [facility]) Name Value Range Interpretation Code Description Data Supporting Source(s) Document(s ) FOLATE 17 ng/mL Normal (applies to MEDGEN SERUM non-numeric ([place] results) Medical Service) ID Date Data Source [id number] 03/30/2019 12:00:00 AM EST [facility]) Name Value Range Interpretation Description Data Sup porting Code Source(s) Document(s ) Cholesterol 129 Normal (applies MEDGEN [Moles/volume] mg/dL to non-numeric ([place] in Pericardial results) Medical fluid Service) CHOL/HDL RATIO 3.58 Normal (applies MEDGEN ratio to non-numeric ([place] results) Medical Service) LDL CALCULATION 72.0 Normal (applies MEDGEN mg/dL to non-numeric ([place] results) Medical Service) HDL CHOLESTEROL 36 mg/dL Below low normal MEDGEN ([place] [facility]) VLDL CALCULATION 21.0 Normal (applies MEDGEN mg/dl to non-numeric ([place] results) Medical Service) TRIGLYCERIDES 105 Normal (applies MEDGEN mg/dL to non-numeric ([place] results) Medical Service) ID Date Data Source [id number] 03/30/2019 12:00:00 AM EST MEDGEN ([facility]) Name Value Range Interpretation Description Data Sup porting Code Source(s) Document(s ) GLUCOSE UA NEGATIVE Normal (applies MEDGEN to non-numeric ([place] results) Medical Service) BILIRUBIN, TOTAL NEGATIVE Normal (applies MEDGEN to non-numeric ([place] results) Medical Service) Ketones NEGATIVE Normal (applies MEDGEN [Presence] in to non-numeric ([place] Blood by Tablet results) Medical Service) Specific gravity 1.019 SG Normal (applies MEDGEN of Pericardial units to non-numeric ([place] fluid by results) Medical Refractometry Service) Blood [Presence] MODERATE Abnormal MEDGEN in Urine by (applies to ([place] Visual non-numeric Medical results) Service) pH of Lower 5 Ph units Normal (applies MEDGEN respiratory to non-numeric ([place] specimen results) Medical Service) Urobilinogen 0-2.0 Normal (applies MEDGEN [Presence] in to non-numeric ([place] Urine by results) Medical Automated test Service) strip Protein 30 mg/dL Abnormal MEDGEN [Mass/volume] in (applies to ([place] Lower non-numeric Medical respiratory results) Service) specimen Nitrite NEGATIVE Normal (applies MEDGEN [Presence] in to non-numeric ([place] Urine by Test results) Medical strip Service) Leukocyte NEGATIVE Normal (applies MEDGEN esterase to non-numeric ([place] [Presence] in results) Medical Body fluid by Service) Automated test strip Color of YELLOW Normal (applies MEDGEN Peritoneal to non-numeric ([place] dialysis fluid results) Medical Service) TRANSPARENCY SLIGHTLY-CL Abnormal MEDGEN OUDY (applies to ([place] non-numeric Medical results) Service) RBC`S 11-20 Abnormal MEDGEN (applies to ([place] non-numeric Medical results) Service) WBC`S 0-5 Normal (applies MEDGEN to non-numeric ([place] results) Medical Service) SQUAMOUS FEW Normal (applies MEDGEN EPITHELIAL to non-numeric ([place] results) Medical Service) MUCOUS FEW Normal (applies MEDGEN to non-numeric ([place] results) Medical Service) ID Date Data Source [id number] 03/30/2019 12:00:00 AM EST MEDGEN ([facility] Service) Name Value Range Interpretation Description Data Sup porting Code Source(s) Document(s ) WBC 4.2 Normal (applies MEDGEN 10(3)/uL to non-numeric ([place] results) Medical Service) RBC 5.4 Normal (applies MEDGEN 10(6)/uL to non-numeric ([place] results) Medical Service) Hemoglobin 16.2 g/dL Normal (applies MEDGEN [Mass/volume] to non-numeric ([place] in Mixed venous results) Medical blood by Service) Oximetry Hematocrit 47.3 % Normal (applies MEDGEN [Pure volume to non-numeric ([place] fraction] of results) Medical Blood by Service) Automated count MCV 88.2 fL Normal (applies MEDGEN to non-numeric ([place] results) Medical Service) MCH 30 pg Normal (applies MEDGEN to non-numeric ([place] results) Medical Service) MCHC 34 g/dL Normal (applies MEDGEN to non-numeric ([place] results) Medical Service) RDWSD 43.8 fL Normal (applies MEDGEN to non-numeric ([place] results) Medical Service) RDWCV 13.7 % Normal (applies MEDGEN to non-numeric ([place] results) Medical Service) Platelet Count 105 Below low normal MEDGEN 10(3)/uL ([place] [facility]) MPV 12.0 fL Normal (applies MEDGEN to non-numeric ([place] results) Medical Service) Neutrophil Abs 1.81 Normal (applies MEDGEN 10(3)/uL to non-numeric ([place] results) Medical Service) Lymphocyte Abs 1.68 Normal (applies MEDGEN 10(3)/uL to non-numeric ([place] results) Medical Service) Monocyte Abs 0.41 Normal (applies MEDGEN 10(3)/uL to non-numeric ([place] results) Medical Service) Eosinophil Abs 0.32 Normal (applies MEDGEN 10(3)/uL to non-numeric ([place] results) Medical Service) Immature 0.00 Normal (applies MEDGEN Granulocyte Abs 10(3)/uL to non-numeric ([place] results) Medical Service) Basophil Abs 0.02 Normal (applies MEDGEN 10(3)/uL to non-numeric ([place] results) Medical Service) Neutrophil % 42.70 % Normal (applies MEDGEN to non-numeric ([place] results) Medical Service) Lymphocyte % 40 % Normal (applies MEDGEN to non-numeric ([place] results) Medical Service) Monocyte % 9.7 % Normal (applies MEDGEN to non-numeric ([place] results) Medical Service) Eosinophil % 7.5 % Above high normal MEDGEN ([place] [facility] Service) Basophil % 0.5 % Normal (applies MEDGEN to non-numeric ([place] results) Medical Service) Immature 0.00 % Normal (applies MEDGEN Granulocyte % to non-numeric ([place] results) Medical Service) NRBC % 0.0 % Normal (applies MEDGEN to non-numeric ([place] results) Medical Service) NRBC Abs 0.00 Normal (applies MEDGEN 10(3)/uL to non-numeric ([place] results) Medical Service) ID Date Data Source [id number] 03/30/2019 12:00:00 AM EST MEDGEN ([facility]) Name Value Range Interpretation Code Description Data Supporting Source(s) Document(s ) GLYCOMARK 14.41 Normal (applies to MEDGEN ug/mL non-numeric ([place] results) Medical Service) ID Date Data Source [id number] 03/30/2019 12:00:00 AM EST MEDGEN ([facility]) Name Value Range Interpretation Description Data Sup porting Code Source(s) Document(s ) Hemoglobin A1c 5.7 % Above high normal MEDGEN in Blood ([place] [facility]) ID Date Data Source [id number] 03/30/2019 12:00:00 AM EST MEDGEN ([facility]) Name Value Range Interpretation Description Data Sup porting Code Source(s) Document(s ) GLUCOSE 151 Above high normal MEDGEN NONFASTING,SERUM mg/dL ([place] [facility]) SODIUM, SERUM 143 Normal (applies MEDGEN mEq/L to non-numeric ([place] results) Medical Service) POTASSIUM, SERUM 4.1 Normal (applies MEDGEN mEq/L to non-numeric ([place] results) Medical Service) CHLORIDE, SERUM 109 Normal (applies MEDGEN mEq/L to non-numeric ([place] results) Medical Service) Carbon dioxide 27 mEq/L Normal (applies MEDGEN [VFr/PPres] in to non-numeric ([place] [employer] results) Medical system Service) Anion gap in 11 mEq/L Normal (applies MEDGEN Body fluid to non-numeric ([place] results) Medical Service) BLOOD UREA 19 mg/dL Normal (applies MEDGEN NITROGEN to non-numeric ([place] results) Medical Service) CREATININE, 1.20 Normal (applies MEDGEN SERUM mg/dL to non-numeric ([place] results) Medical Service) CALCIUM, SERUM 8.8 Normal (applies MEDGEN mg/dL to non-numeric ([place] results) Medical Service) TOTAL PROTEIN 6.2 g/dL Normal (applies MEDGEN to non-numeric ([place] results) Medical Service) Microalbumin 4.1 g/dL Normal (applies MEDGEN [Mass/time] in to non-numeric ([place] Urine collected results) Medical for unspecified Service) duration Globulin 2.1 gldl Normal (applies MEDGEN [Mass/time] in to non-numeric ([place] 24 hour Urine results) Medical Service) A/G RATIO 1.95 Normal (applies MEDGEN g/dl to non-numeric ([place] results) Medical Service) BILIRUBIN, TOTAL 0.8 Normal (applies MEDGEN mg/dL to non-numeric ([place] results) Medical Service) ALKALINE 92 U/L Normal (applies MEDGEN PHOSPHATASE, ALP to non-numeric ([facility] y results) Medical Service) ALT (SGPT) 63 U/L Above high normal MEDGEN ([place] [facility]) AST 41 U/L Above high normal MEDGEN ([place] [facility]) EGFR NON AFR 66 Normal (applies MEDGEN ICELANDIC mL/min/1 to non-numeric ([place] .73m2 results) Medical Service) EGFR AFR 79 Normal (applies MEDGEN ICELANDIC mL/min/1 to non-numeric ([place] .73m2 results) Medical Service) ID Date Data Source [id number] 08/29/2018 12:00:00 AM EDT MEDGEN ([facility]) Name Value Range Interpretation Description Data Sup porting Code Source(s) Document(s ) ORGANISM Normal (applies MEDGEN to non-numeric ([place] results) Medical Service) Comment Normal (applies MEDGEN [Interpretation] to non-numeric ([facility] Left eye Narrative results) Medical Ophthalmometer Service) ID Date Data Source [id number] 08/29/2018 12:00:00 AM EDT MEDGEN ([facility]) Name Value Range Interpretation Code Description Data Libra rce(s) Supporting Document(s ) %PSA, Test not Normal (applies to MEDGEN FREE performed. non-numeric ([place] results) Medical Service) ID Date Data Source [id number] 08/29/2018 12:00:00 AM EDT MEDGEN ([facility] Service) Name Value Range Interpretation Code Description Data Libra rce(s) Supporting Document(s ) PSA, FREE 0.87 ng/mL Normal (applies to MEDGEN non-numeric ([place] results) Medical Service) ID Date Data Source [id number] 08/29/2018 12:00:00 AM EDT MEDGEN ([facility]) Name Value Range Interpretation Code Description Data Supporting Source(s) Document(s ) PSA, TOTAL 2.24 ng/mL Normal (applies to MEDGEN non-numeric ([place] results) Medical Service) ID Date Data Source [id number] 08/29/2018 12:00:00 AM EDT MEDGEN ([facility]) Name Value Range Interpretation Description Data Sup porting Code Source(s) Document(s ) TSH,3RD 1.98 Normal (applies to MEDGEN GENERATION uIU/mL non-numeric ([place] results) Medical Service) T4 TOTAL 10.4 Normal (applies to MEDGEN THYROXINE ug/dL non-numeric ([place] results) Medical Service) T3 TOTAL 150 ng/dL Normal (applies to MEDGEN non-numeric ([place] results) Medical Service) ID Date Data Source [id number] 08/29/2018 12:00:00 AM EDT MEDGEN ([facility] Service) Name Value Range Interpretation Description Data Sup porting Code Source(s) Document(s ) Cholesterol 138 Normal (applies MEDGEN [Moles/volume] mg/dL to non-numeric ([place] in Pericardial results) Medical fluid Service) LDL CALCULATION 80.2 Normal (applies MEDGEN mg/dL to non-numeric ([place] results) Medical Service) CHOL/HDL RATIO 3.94 Normal (applies MEDGEN ratio to non-numeric ([place] results) Medical Service) HDL CHOLESTEROL 35 mg/dL Above high normal MEDGEN ([place] [facility]) VLDL CALCULATION 22.8 Normal (applies MEDGEN mg/dl to non-numeric ([place] results) Medical Service) TRIGLYCERIDES 114 Normal (applies MEDGEN mg/dL to non-numeric ([place] results) Medical Service) ID Date Data Source [id number] 08/29/2018 12:00:00 AM EDT MEDGEN ([facility]) Name Value Range Interpretation Description Data Sup porting Code Source(s) Document(s ) GLUCOSE 86 mg/dL Normal (applies MEDGEN NONFASTING,SERUM to non-numeric ([facility] results) Medical Service) SODIUM, SERUM 142 Normal (applies MEDGEN mEq/L to non-numeric ([place] results) Medical Service) POTASSIUM, SERUM 4.1 Normal (applies MEDGEN mEq/L to non-numeric ([place] results) Medical Service) CHLORIDE, SERUM 108 Normal (applies MEDGEN mEq/L to non-numeric ([place] results) Medical Service) Carbon dioxide 22 mEq/L Normal (applies MEDGEN [VFr/PPres] in to non-numeric ([place] Gas [employer] results) Medical system Service) Anion gap in 16 mEq/L Normal (applies MEDGEN Body fluid to non-numeric ([place] results) Medical Service) BLOOD UREA 24 mg/dL Above high normal MEDGEN NITROGEN ([place] [facility]) CREATININE, 1.40 Above high normal MEDGEN SERUM mg/dL ([place] [facility]) BUN/CREATININE 17.1 Normal (applies MEDGEN RATIO to non-numeric ([place] results) Medical Service) CALCIUM, SERUM 8.9 Normal (applies MEDGEN mg/dL to non-numeric ([place] results) Medical Service) TOTAL PROTEIN 6.7 g/dL Normal (applies MEDGEN to non-numeric ([place] results) Medical Service) Microalbumin 4.3 g/dL Normal (applies MEDGEN [Mass/time] in to non-numeric ([place] Urine collected results) Medical for unspecified Service) duration Globulin 2.4 gldl Normal (applies MEDGEN [Mass/time] in to non-numeric ([place] 24 hour Urine results) Medical Service) A/G RATIO 1.79 Normal (applies MEDGEN g/dl to non-numeric ([place] results) Medical Service) BILIRUBIN, TOTAL 0.7 Normal (applies MEDGEN mg/dL to non-numeric ([place] results) Medical Service) ALKALINE 104 U/L Normal (applies MEDGEN PHOSPHATASE, ALP to non-numeric ([facility] y results) Medical Service) ALT (SGPT) 43 U/L Normal (applies MEDGEN to non-numeric ([place] results) Medical Service) AST 31 U/L Normal (applies MEDGEN to non-numeric ([place] results) Medical Service) EGFR NON AFR 55 Above high normal MEDGEN ICELANDIC mL/min/1 ([place] .73 Medical Service) EGFR AFR 66 Above high normal MEDGEN ICELANDIC mL/min/1 ([place] [address] Medical Service) ID Date Data Source [id number] 08/29/2018 12:00:00 AM EDT MEDGEN ([facility] Medical Service) Name Value Range Interpretation Description Data Sup porting Code Source(s) Document(s ) GLUCOSE UA NEGATIVE Normal (applies MEDGEN to non-numeric ([place] results) Medical Service) BILIRUBIN, TOTAL NEGATIVE Normal (applies MEDGEN to non-numeric ([place] results) Medical Service) Ketones NEGATIVE Normal (applies MEDGEN [Presence] in to non-numeric ([place] Blood by Tablet results) Medical Service) Specific gravity 1.025 SG Normal (applies MEDGEN of Pericardial units to non-numeric ([place] fluid by results) Medical Refractometry Service) Blood [Presence] MODERATE Normal (applies MEDGEN in Urine by to non-numeric ([place] Visual results) Medical Service) pH of Lower 6 Ph units Normal (applies MEDGEN respiratory to non-numeric ([place] specimen results) Medical Service) Protein 30 mg/dL Normal (applies MEDGEN [Mass/volume] in to non-numeric ([facility] y Lower results) Medical respiratory Service) specimen Urobilinogen 4.0 mg/dl Normal (applies MEDGEN [Presence] in to non-numeric ([place] Urine by results) Medical Automated test Service) strip Nitrite NEGATIVE Normal (applies MEDGEN [Presence] in to non-numeric ([place] Urine by Test results) Medical strip Service) Leukocyte NEGATIVE Normal (applies MEDGEN esterase to non-numeric ([place] [Presence] in results) Medical Body fluid by Service) Automated test strip Color of PIA Normal (applies MEDGEN Peritoneal to non-numeric ([place] dialysis fluid results) Medical Service) TRANSPARENCY CLOUDY Normal (applies MEDGEN to non-numeric ([place] results) Medical Service) RBC`S 21-50 Normal (applies MEDGEN to non-numeric ([place] results) Medical Service) WBC`S 6-10 Normal (applies MEDGEN to non-numeric ([place] results) Medical Service) SQUAMOUS FEW Normal (applies MEDGEN EPITHELIAL to non-numeric ([place] results) Medical Service) MUCOUS FEW Normal (applies MEDGEN to non-numeric ([place] results) Medical Service) Calcium Oxalate FEW Normal (applies MEDGEN Crystal to non-numeric ([place] results) Medical Service) ID Date Data Source [id number] 08/29/2018 12:00:00 AM EDT MEDGEN ([facility] Medical Service) Name Value Range Interpretation Description Data Sup porting Code Source(s) Document(s ) WBC 5.2 Normal (applies MEDGEN 10(3)/uL to non-numeric ([place] results) Medical Service) RBC 5.7 Normal (applies MEDGEN 10(6)/uL to non-numeric ([place] results) Medical Service) Hemoglobin 16.9 g/dL Normal (applies MEDGEN [Mass/volume] to non-numeric ([place] in Mixed venous results) Medical blood by Service) Oximetry Hematocrit 50.1 % Above high normal MEDGEN [Pure volume ([place] fraction] of Medical Blood by Service) Automated count MCV 87.9 fL Normal (applies MEDGEN to non-numeric ([place] results) Medical Service) MCH 30 pg Normal (applies MEDGEN to non-numeric ([place] results) Medical Service) MCHC 34 g/dL Normal (applies MEDGEN to non-numeric ([place] results) Medical Service) RDWSD 42.9 fL Normal (applies MEDGEN to non-numeric ([place] results) Medical Service) RDWCV 13.6 % Normal (applies MEDGEN to non-numeric ([place] results) Medical Service) Platelet Count 94 Below low normal MEDGEN 10(3)/uL ([place] [facility] Service) MPV 11.8 fL Normal (applies MEDGEN to non-numeric ([place] results) Medical Service) Neutrophil Abs 2.22 Normal (applies MEDGEN 10(3)/uL to non-numeric ([place] results) Medical Service) Lymphocyte Abs 2.04 Normal (applies MEDGEN 10(3)/uL to non-numeric ([place] results) Medical Service) Monocyte Abs 0.52 Normal (applies MEDGEN 10(3)/uL to non-numeric ([place] results) Medical Service) Eosinophil Abs 0.41 Above high normal MEDGEN 10(3)/uL ([place] [facility] Service) Neutrophil % 42.50 % Normal (applies MEDGEN to non-numeric ([place] results) Medical Service) Lymphocyte % 39 % Normal (applies MEDGEN to non-numeric ([place] results) Medical Service) Monocyte % 9.9 % Normal (applies MEDGEN to non-numeric ([place] results) Medical Service) Eosinophil % 7.8 % Above high normal MEDGEN ([place] [facility]) Basophil % 0.6 % Normal (applies MEDGEN to non-numeric ([place] results) Medical Service) Immature 0.20 % Normal (applies MEDGEN Granulocyte % to non-numeric ([place] results) Medical Service) ID Date Data Source [id number] 08/29/2018 12:00:00 AM EDT MEDGEN ([facility]) Name Value Range Interpretation Code Description Data Supporting Source(s) Document(s ) GLYCOMARK 15.41 Normal (applies to MEDGEN ug/mL non-numeric ([place] results) Medical Service) ID Date Data Source [id number] 08/29/2018 12:00:00 AM EDT MEDGEN ([facility]) Name Value Range Interpretation Description Data Sup porting Code Source(s) Document(s ) Hemoglobin A1c 5.5 % Normal (applies to MEDGEN in Blood non-numeric ([place] results) Medical Service) ID Date Data Source [id number] 08/29/2018 12:00:00 AM EDT MEDGEN ([facility]) Name Value Range Interpretation Description Data Sup porting Code Source(s) Document(s ) ORGANISM Normal (applies MEDGEN to non-numeric ([place] results) Medical Service) Comment Normal (applies MEDGEN [Interpretation] to non-numeric ([facility] Left eye Narrative results) Medical Ophthalmometer Service) ID Date Data Source [id number] 08/29/2018 12:00:00 AM EDT [facility] ([facility]) Name Value Range Interpretation Code Description Data Libra rce(s) Supporting Document(s ) %PSA, Test not Normal (applies to MEDGEN FREE performed. non-numeric ([place] results) Medical Service) ID Date Data Source [id number] 08/29/2018 12:00:00 AM EDT MEDGEN ([facility]) Name Value Range Interpretation Code Description Data Libra rce(s) Supporting Document(s ) PSA, FREE 0.87 ng/mL Normal (applies to MEDGEN non-numeric ([place] results) Medical Service) ID Date Data Source [id number] 08/29/2018 12:00:00 AM EDT MEDGEN ([facility]) Name Value Range Interpretation Code Description Data Supporting Source(s) Document(s ) PSA, TOTAL 2.24 ng/mL Normal (applies to MEDGEN non-numeric ([place] results) Medical Service) ID Date Data Source [id number] 08/29/2018 12:00:00 AM EDT [facility] ([facility]) Name Value Range Interpretation Description Data Sup porting Code Source(s) Document(s ) TSH,3RD 1.98 Normal (applies to MEDGEN GENERATION uIU/mL non-numeric ([place] results) Medical Service) T4 TOTAL 10.4 Normal (applies to MEDGEN THYROXINE ug/dL non-numeric ([place] results) Medical Service) T3 TOTAL 150 ng/dL Normal (applies to MEDGEN non-numeric ([place] results) Medical Service) ID Date Data Source [id number] 08/29/2018 12:00:00 AM EDT [facility] ([facility]) Name Value Range Interpretation Description Data Sup porting Code Source(s) Document(s ) Cholesterol 138 Normal (applies MEDGEN [Moles/volume] mg/dL to non-numeric ([place] in Pericardial results) Medical fluid Service) LDL CALCULATION 80.2 Normal (applies MEDGEN mg/dL to non-numeric ([place] results) Medical Service) CHOL/HDL RATIO 3.94 Normal (applies MEDGEN ratio to non-numeric ([place] results) Medical Service) HDL CHOLESTEROL 35 mg/dL Above high normal MEDGEN ([place]) VLDL CALCULATION 22.8 Normal (applies MEDGEN mg/dl to non-numeric ([place] results) Medical Service) TRIGLYCERIDES 114 Normal (applies MEDGEN mg/dL to non-numeric ([place] results) Medical Service) ID Date Data Source [id number] 08/29/2018 12:00:00 AM EDT MEDGEN ([facility]) Name Value Range Interpretation Description Data Sup porting Code Source(s) Document(s ) GLUCOSE 86 mg/dL Normal (applies MEDGEN NONFASTING,SERUM to non-numeric ([facility] y results) Medical Service) SODIUM, SERUM 142 Normal (applies MEDGEN mEq/L to non-numeric ([place] results) Medical Service) POTASSIUM, SERUM 4.1 Normal (applies MEDGEN mEq/L to non-numeric ([place] results) Medical Service) CHLORIDE, SERUM 108 Normal (applies MEDGEN mEq/L to non-numeric ([place] results) Medical Service) Carbon dioxide 22 mEq/L Normal (applies MEDGEN [VFr/PPres] in to non-numeric ([place] [facility] results) Medical system Service) Anion gap in 16 mEq/L Normal (applies MEDGEN Body fluid to non-numeric ([place] results) Medical Service) BLOOD UREA 24 mg/dL Above high normal MEDGEN NITROGEN ([place] [facility]) CREATININE, 1.40 Above high normal MEDGEN SERUM mg/dL ([place] [facility]) BUN/CREATININE 17.1 Normal (applies MEDGEN RATIO to non-numeric ([place] results) Medical Service) CALCIUM, SERUM 8.9 Normal (applies MEDGEN mg/dL to non-numeric ([place] results) Medical Service) TOTAL PROTEIN 6.7 g/dL Normal (applies MEDGEN to non-numeric ([place] results) Medical Service) Microalbumin 4.3 g/dL Normal (applies MEDGEN [Mass/time] in to non-numeric ([place] Urine collected results) Medical for unspecified Service) duration Globulin 2.4 gldl Normal (applies MEDGEN [Mass/time] in to non-numeric ([place] 24 hour Urine results) Medical Service) A/G RATIO 1.79 Normal (applies MEDGEN g/dl to non-numeric ([place] results) Medical Service) BILIRUBIN, TOTAL 0.7 Normal (applies MEDGEN mg/dL to non-numeric ([place] results) Medical Service) ALKALINE 104 U/L Normal (applies MEDGEN PHOSPHATASE, ALP to non-numeric ([facility] y results) Medical Service) ALT (SGPT) 43 U/L Normal (applies MEDGEN to non-numeric ([place] results) Medical Service) AST 31 U/L Normal (applies MEDGEN to non-numeric ([place] results) Medical Service) EGFR NON AFR 55 Above high normal MEDGEN ICELANDIC mL/min/1 ([place] .73m2 Medical Service) EGFR AFR 66 Above high normal MEDGEN ICELANDIC mL/min/1 ([place] .73m2 Medical Service) ID Date Data Source [id number] 08/29/2018 12:00:00 AM EDT MEDGEN ([facility]) Name Value Range Interpretation Description Data Sup porting Code Source(s) Document(s ) GLUCOSE UA NEGATIVE Normal (applies MEDGEN to non-numeric ([place] results) Medical Service) BILIRUBIN, TOTAL NEGATIVE Normal (applies MEDGEN to non-numeric ([place] results) Medical Service) Ketones NEGATIVE Normal (applies MEDGEN [Presence] in to non-numeric ([place] Blood by Tablet results) Medical Service) Specific gravity 1.025 SG Normal (applies MEDGEN of Pericardial units to non-numeric ([place] fluid by results) Medical Refractometry Service) Blood [Presence] MODERATE Normal (applies MEDGEN in Urine by to non-numeric ([place] Visual results) Medical Service) pH of Lower 6 Ph units Normal (applies MEDGEN respiratory to non-numeric ([place] specimen results) Medical Service) Protein 30 mg/dL Normal (applies MEDGEN [facility]Mass/volume] [facility] Medical respiratory Service) specimen Urobilinogen 4.0 mg/dl Normal (applies MEDGEN [Presence] in to non-numeric ([place] Urine by results) Medical Automated test Service) strip Nitrite NEGATIVE Normal (applies MEDGEN [Presence] in to non-numeric ([place] Urine by Test results) Medical strip Service) Leukocyte NEGATIVE Normal (applies MEDGEN esterase to non-numeric ([place] [Presence] in results) Medical Body fluid by Service) Automated test strip Color of PIA Normal (applies MEDGEN Peritoneal to non-numeric ([place] [facility] fluid results) Medical Service) TRANSPARENCY CLOUDY Normal (applies MEDGEN to non-numeric ([place] results) Medical Service) RBC`S 21-50 Normal (applies MEDGEN to non-numeric ([place] results) Medical Service) WBC`S 6-10 Normal (applies MEDGEN to non-numeric ([place] results) Medical Service) SQUAMOUS FEW Normal (applies MEDGEN EPITHELIAL to non-numeric ([place] results) Medical Service) MUCOUS FEW Normal (applies MEDGEN to non-numeric ([place] results) Medical Service) Calcium Oxalate FEW Normal (applies MEDGEN Crystal to non-numeric ([place] results) Medical Service) ID Date Data Source [id number] 08/29/2018 12:00:00 AM EDT MEDGEN ([facility] Service) Name Value Range Interpretation Description Data Sup porting Code Source(s) Document(s ) WBC 5.2 Normal (applies MEDGEN 10(3)/uL to non-numeric ([place] results) Medical Service) RBC 5.7 Normal (applies MEDGEN 10(6)/uL to non-numeric ([place] results) Medical Service) Hemoglobin 16.9 g/dL Normal (applies MEDGEN [Mass/volume] to non-numeric ([place] in Mixed venous results) Medical blood by Service) Oximetry Hematocrit 50.1 % Above high normal MEDGEN [Pure volume ([place] fraction] of Medical Blood by Service) Automated count MCV 87.9 fL Normal (applies MEDGEN to non-numeric ([place] results) Medical Service) MCH 30 pg Normal (applies MEDGEN to non-numeric ([place] results) Medical Service) MCHC 34 g/dL Normal (applies MEDGEN to non-numeric ([place] results) Medical Service) RDWSD 42.9 fL Normal (applies MEDGEN to non-numeric ([place] results) Medical Service) RDWCV 13.6 % Normal (applies MEDGEN to non-numeric ([place] results) Medical Service) Platelet Count 94 Below low normal MEDGEN 10(3)/uL ([place] [facility]) MPV 11.8 fL Normal (applies MEDGEN to non-numeric ([place] results) Medical Service) Neutrophil Abs 2.22 Normal (applies MEDGEN 10(3)/uL to non-numeric ([place] results) Medical Service) Lymphocyte Abs 2.04 Normal (applies MEDGEN 10(3)/uL to non-numeric ([place] results) Medical Service) Monocyte Abs 0.52 Normal (applies MEDGEN 10(3)/uL to non-numeric ([place] results) Medical Service) Eosinophil Abs 0.41 Above high normal MEDGEN 10(3)/uL ([place] [facility]) Neutrophil % 42.50 % Normal (applies MEDGEN to non-numeric ([place] results) Medical Service) Lymphocyte % 39 % Normal (applies MEDGEN to non-numeric ([place] results) Medical Service) Monocyte % 9.9 % Normal (applies MEDGEN to non-numeric ([place] results) Medical Service) Eosinophil % 7.8 % Above high normal MEDGEN ([place] [facility]) Basophil % 0.6 % Normal (applies MEDGEN to non-numeric ([place] results) Medical Service) Immature 0.20 % Normal (applies MEDGEN Granulocyte % to non-numeric ([place] results) Medical Service) ID Date Data Source [id number] 08/29/2018 12:00:00 AM EDT MEDGEN ([facility]) Name Value Range Interpretation Code Description Data Supporting Source(s) Document(s ) GLYCOMARK 15.41 Normal (applies to MEDGEN ug/mL non-numeric ([place] results) Medical Service) ID Date Data Source [id number] 08/29/2018 12:00:00 AM EDT MEDGEN ([facility]) Name Value Range Interpretation Description Data Sup porting Code Source(s) Document(s ) Hemoglobin A1c 5.5 % Normal (applies to MEDGEN in Blood non-numeric ([place] results) Medical Service) ID Date Data Source [id number] 08/29/2018 12:00:00 AM EDT MEDGEN ([facility]) Name Value Range Interpretation Description Data Sup porting Code Source(s) Document(s ) ORGANISM Normal (applies MEDGEN to non-numeric ([place] results) Medical Service) Comment Normal (applies MEDGEN [Interpretation] to non-numeric ([place] [facility] Left eye Narrative results) Medical Ophthalmometer Service) ID Date Data Source [id number] 08/29/2018 12:00:00 AM EDT MEDGEN ([facility]) Name Value Range Interpretation Code Description Data Libra rce(s) Supporting Document(s ) %PSA, Test not Normal (applies to MEDGEN FREE performed. non-numeric ([place] results) Medical Service) ID Date Data Source [id number] 08/29/2018 12:00:00 AM EDT MEDGEN ([facility]) Name Value Range Interpretation Code Description Data Libra rce(s) Supporting Document(s ) PSA, FREE 0.87 ng/mL Normal (applies to MEDGEN non-numeric ([place] results) Medical Service) ID Date Data Source [id number] 08/29/2018 12:00:00 AM EDT MEDGEN ([facility]) Name Value Range Interpretation Code Description Data Supporting Source(s) Document(s ) PSA, TOTAL 2.24 ng/mL Normal (applies to MEDGEN non-numeric ([place] results) Medical Service) ID Date Data Source [id number] 08/29/2018 12:00:00 AM EDT MEDGEN ([facility]) Name Value Range Interpretation Description Data Sup porting Code Source(s) Document(s ) TSH,3RD 1.98 Normal (applies to MEDGEN GENERATION uIU/mL non-numeric ([place] results) Medical Service) T4 TOTAL 10.4 Normal (applies to MEDGEN THYROXINE ug/dL non-numeric ([place] results) Medical Service) T3 TOTAL 150 ng/dL Normal (applies to MEDGEN non-numeric ([place] results) Medical Service) ID Date Data Source [id number] 08/29/2018 12:00:00 AM EDT [employer]HiringTh[employer] ([facility]) Name Value Range Interpretation Description Data Sup porting Code Source(s) Document(s ) Cholesterol 138 Normal (applies MEDGEN [Moles/volume] mg/dL to non-numeric ([place] in Pericardial results) Medical fluid Service) LDL CALCULATION 80.2 Normal (applies MEDGEN mg/dL to non-numeric ([place] results) Medical Service) CHOL/HDL RATIO 3.94 Normal (applies MEDGEN ratio to non-numeric ([place] results) Medical Service) HDL CHOLESTEROL 35 mg/dL Above high normal MEDGEN ([place] [facility]) VLDL CALCULATION 22.8 Normal (applies MEDGEN mg/dl to non-numeric ([place] results) Medical Service) TRIGLYCERIDES 114 Normal (applies MEDGEN mg/dL to non-numeric ([place] results) Medical Service) ID Date Data Source [id number] 08/29/2018 12:00:00 AM EDT [employer]Th[employer] ([facility]) Name Value Range Interpretation Description Data Sup porting Code Source(s) Document(s ) GLUCOSE 86 mg/dL Normal (applies MEDGEN NONFASTING,SERUM to non-numeric ([place] [facility] results) Medical Service) SODIUM, SERUM 142 Normal (applies MEDGEN mEq/L to non-numeric ([place] results) Medical Service) POTASSIUM, SERUM 4.1 Normal (applies MEDGEN mEq/L to non-numeric ([place] results) Medical Service) CHLORIDE, SERUM 108 Normal (applies MEDGEN mEq/L to non-numeric ([place] results) Medical Service) Carbon dioxide 22 mEq/L Normal (applies MEDGEN [VFr/PPres] in to non-numeric ([place] [facility] results) Medical system Service) Anion gap in 16 mEq/L Normal (applies MEDGEN Body fluid to non-numeric ([place] results) Medical Service) BLOOD UREA 24 mg/dL Above high normal MEDGEN NITROGEN ([place] [facility]) CREATININE, 1.40 Above high normal MEDGEN SERUM mg/dL ([place] [facility]) BUN/CREATININE 17.1 Normal (applies MEDGEN RATIO to non-numeric ([place] results) Medical Service) CALCIUM, SERUM 8.9 Normal (applies MEDGEN mg/dL to non-numeric ([place] results) Medical Service) TOTAL PROTEIN 6.7 g/dL Normal (applies MEDGEN to non-numeric ([place] results) Medical Service) Microalbumin 4.3 g/dL Normal (applies MEDGEN [Mass/time] in to non-numeric ([place] Urine collected results) Medical for unspecified Service) duration Globulin 2.4 gldl Normal (applies MEDGEN [Mass/time] in to non-numeric ([place] 24 hour Urine results) Medical Service) A/G RATIO 1.79 Normal (applies MEDGEN g/dl to non-numeric ([place] results) Medical Service) BILIRUBIN, TOTAL 0.7 Normal (applies MEDGEN mg/dL to non-numeric ([place] results) Medical Service) ALKALINE 104 U/L Normal (applies MEDGEN PHOSPHATASE, ALP to non-numeric [facility]) ALT (SGPT) 43 U/L Normal (applies MEDGEN to non-numeric ([place] results) Medical Service) AST 31 U/L Normal (applies MEDGEN to non-numeric ([place] results) Medical Service) EGFR NON AFR 55 Above high normal MEDGEN ICELANDIC mL/min/1 ([place] .73m2 Medical Service) EGFR AFR 66 Above high normal MEDGEN ICELANDIC mL/min/1 ([place] .73m2 Medical Service) ID Date Data Source [id number] 08/29/2018 12:00:00 AM EDT MEDGEN ([facility]) Name Value Range Interpretation Description Data Sup porting Code Source(s) Document(s ) GLUCOSE UA NEGATIVE Normal (applies MEDGEN to non-numeric ([place] results) Medical Service) BILIRUBIN, TOTAL NEGATIVE Normal (applies MEDGEN to non-numeric ([place] results) Medical Service) Ketones NEGATIVE Normal (applies MEDGEN [Presence] in to non-numeric ([place] Blood by Tablet results) Medical Service) Specific gravity 1.025 SG Normal (applies MEDGEN of Pericardial units to non-numeric ([place] fluid by results) Medical Refractometry Service) Blood [Presence] MODERATE Normal (applies MEDGEN in Urine by to non-numeric ([place] Visual results) Medical Service) pH of Lower 6 Ph units Normal (applies MEDGEN respiratory to non-numeric ([place] specimen results) Medical Service) Protein 30 mg/dL Normal (applies MEDGEN [Mass/volume] in to non-numeric ([place] [facility] Lower results) Medical respiratory Service) specimen Urobilinogen 4.0 mg/dl Normal (applies MEDGEN [Presence] in to non-numeric ([place] Urine by results) Medical Automated test Service) strip Nitrite NEGATIVE Normal (applies MEDGEN [Presence] in to non-numeric ([place] Urine by Test results) Medical strip Service) Leukocyte NEGATIVE Normal (applies MEDGEN esterase to non-numeric ([place] [Presence] in results) Medical Body fluid by Service) Automated test strip Color of PIA Normal (applies MEDGEN Peritoneal to non-numeric ([place] dialysis fluid results) Medical Service) TRANSPARENCY CLOUDY Normal (applies MEDGEN to non-numeric ([place] results) Medical Service) RBC`S 21-50 Normal (applies MEDGEN to non-numeric ([place] results) Medical Service) WBC`S 6-10 Normal (applies MEDGEN to non-numeric ([place] results) Medical Service) SQUAMOUS FEW Normal (applies MEDGEN EPITHELIAL to non-numeric ([place] results) Medical Service) MUCOUS FEW Normal (applies MEDGEN to non-numeric ([place] results) Medical Service) Calcium Oxalate FEW Normal (applies MEDGEN Crystal to non-numeric ([place] results) Medical Service) ID Date Data Source [id number] 08/29/2018 12:00:00 AM EDT MEDGEN ([facility] Service) Name Value Range Interpretation Description Data Sup porting Code Source(s) Document(s ) WBC 5.2 Normal (applies MEDGEN 10(3)/uL to non-numeric ([place] results) Medical Service) RBC 5.7 Normal (applies MEDGEN 10(6)/uL to non-numeric ([place] results) Medical Service) Hemoglobin 16.9 g/dL Normal (applies MEDGEN [Mass/volume] to non-numeric ([place] in Mixed venous results) Medical blood by Service) Oximetry Hematocrit 50.1 % Above high normal MEDGEN [Pure volume ([place] fraction] of Medical Blood by Service) Automated count MCV 87.9 fL Normal (applies MEDGEN to non-numeric ([place] results) Medical Service) MCH 30 pg Normal (applies MEDGEN to non-numeric ([place] results) Medical Service) MCHC 34 g/dL Normal (applies MEDGEN to non-numeric ([place] results) Medical Service) RDWSD 42.9 fL Normal (applies MEDGEN to non-numeric ([place] results) Medical Service) RDWCV 13.6 % Normal (applies MEDGEN to non-numeric ([place] results) Medical Service) Platelet Count 94 Below low normal MEDGEN 10(3)/uL ([place] [facility]) MPV 11.8 fL Normal (applies MEDGEN to non-numeric ([place] results) Medical Service) Neutrophil Abs 2.22 Normal (applies MEDGEN 10(3)/uL to non-numeric ([place] results) Medical Service) Lymphocyte Abs 2.04 Normal (applies MEDGEN 10(3)/uL to non-numeric ([place] results) Medical Service) Monocyte Abs 0.52 Normal (applies MEDGEN 10(3)/uL to non-numeric ([place] results) Medical Service) Eosinophil Abs 0.41 Above high normal MEDGEN 10(3)/uL ([place] [facility]) Neutrophil % 42.50 % Normal (applies MEDGEN to non-numeric ([place] results) Medical Service) Lymphocyte % 39 % Normal (applies MEDGEN to non-numeric ([place] results) Medical Service) Monocyte % 9.9 % Normal (applies MEDGEN to non-numeric ([place] results) Medical Service) Eosinophil % 7.8 % Above high normal MEDGEN ([place] [facility]) Basophil % 0.6 % Normal (applies MEDGEN to non-numeric ([place] results) Medical Service) Immature 0.20 % Normal (applies MEDGEN Granulocyte % to non-numeric ([place] results) Medical Service) ID Date Data Source [id number] 08/29/2018 12:00:00 AM EDT MEDGEN ([facility] Service) Name Value Range Interpretation Code Description Data Supporting Source(s) Document(s ) GLYCOMARK 15.41 Normal (applies to MEDGEN ug/mL non-numeric ([place] results) Medical Service) ID Date Data Source [id number] 08/29/2018 12:00:00 AM EDT MEDGEN ([facility] Medical Service) Name Value Range Interpretation Description Data Sup porting Code Source(s) Document(s ) Hemoglobin A1c 5.5 % Normal (applies to MEDGEN in Blood non-numeric ([place] results) Medical Service) ID Date Data Source [id number] 08/29/2018 12:00:00 AM EDT MEDGEN ([facility]) Name Value Range Interpretation Code Description Data Supporting Source(s) Document(s ) PSA, TOTAL 2.24 ng/mL Normal (applies to MEDGEN non-numeric ([place] results) Medical Service) ID Date Data Source [id number] 08/29/2018 12:00:00 AM EDT MEDGEN ([facility]) Name Value Range Interpretation Description Data Sup porting Code Source(s) Document(s ) TSH,3RD 1.98 Normal (applies to MEDGEN GENERATION uIU/mL non-numeric ([place] results) Medical Service) T4 TOTAL 10.4 Normal (applies to MEDGEN THYROXINE ug/dL non-numeric ([place] results) Medical Service) T3 TOTAL 150 ng/dL Normal (applies to MEDGEN non-numeric ([place] results) Medical Service) ID Date Data Source [id number] 08/29/2018 12:00:00 AM EDT MEDGEN ([facility] Medical Service) Name Value Range Interpretation Description Data Sup porting Code Source(s) Document(s ) Cholesterol 138 Normal (applies MEDGEN [Moles/volume] mg/dL to non-numeric ([place] in Pericardial results) Medical fluid Service) LDL CALCULATION 80.2 Normal (applies MEDGEN mg/dL to non-numeric ([place] results) Medical Service) CHOL/HDL RATIO 3.94 Normal (applies MEDGEN ratio to non-numeric ([place] results) Medical Service) HDL CHOLESTEROL 35 mg/dL Above high normal MEDGEN ([place] [facility]) VLDL CALCULATION 22.8 Normal (applies MEDGEN mg/dl to non-numeric ([place] results) Medical Service) TRIGLYCERIDES 114 Normal (applies MEDGEN mg/dL to non-numeric ([place] results) Medical Service) ID Date Data Source [id number] 08/29/2018 12:00:00 AM EDT MEDGEN ([facility] Medical Service) Name Value Range Interpretation Description Data Sup porting Code Source(s) Document(s ) GLUCOSE 86 mg/dL Normal (applies MEDGEN NONFASTING,SERUM to non-numeric ([facility] results) Medical Service) SODIUM, SERUM 142 Normal (applies MEDGEN mEq/L to non-numeric ([place] results) Medical Service) POTASSIUM, SERUM 4.1 Normal (applies MEDGEN mEq/L to non-numeric ([place] results) Medical Service) CHLORIDE, SERUM 108 Normal (applies MEDGEN mEq/L to non-numeric ([place] results) Medical Service) Carbon dioxide 22 mEq/L Normal (applies MEDGEN [VFr/PPres] in to non-numeric ([place] [facility] results) Medical system Service) Anion gap in 16 mEq/L Normal (applies MEDGEN Body fluid to non-numeric ([facility]) Medical Service) BLOOD UREA 24 mg/dL Above high normal MEDGEN NITROGEN ([place] [facility]) CREATININE, 1.40 Above high normal MEDGEN SERUM mg/dL ([place] [facility]) BUN/CREATININE 17.1 Normal (applies MEDGEN RATIO to non-numeric ([place] results) Medical Service) CALCIUM, SERUM 8.9 Normal (applies MEDGEN mg/dL to non-numeric ([facility]) Medical Service) TOTAL PROTEIN 6.7 g/dL Normal (applies MEDGEN to non-numeric ([place] results) Medical Service) Microalbumin 4.3 g/dL Normal (applies MEDGEN [Mass/time] in to non-numeric ([place] Urine collected results) Medical for unspecified Service) duration Globulin 2.4 gldl Normal (applies MEDGEN [Mass/time] in to non-numeric ([place] 24 hour Urine results) Medical Service) A/G RATIO 1.79 Normal (applies MEDGEN g/dl to non-numeric ([place] results) Medical Service) BILIRUBIN, TOTAL 0.7 Normal (applies MEDGEN mg/dL to non-numeric ([place] results) Medical Service) ALKALINE 104 U/L Normal (applies MEDGEN PHOSPHATASE, ALP to non-numeric ([facility] results) Medical Service) ALT (SGPT) 43 U/L Normal (applies MEDGEN to non-numeric ([place] results) Medical Service) AST 31 U/L Normal (applies MEDGEN to non-numeric ([place] results) Medical Service) EGFR NON AFR 55 Above high normal MEDGEN ICELANDIC mL/min/1 ([place] .73m2 Medical Service) EGFR AFR 66 Above high normal MEDGEN ICELANDIC mL/min/1 ([place] .73m2 Medical Service) ID Date Data Source [id number] 08/29/2018 12:00:00 AM EDT MEDGEN ([facility]) Name Value Range Interpretation Description Data Sup porting Code Source(s) Document(s ) GLUCOSE UA NEGATIVE Normal (applies MEDGEN to non-numeric ([place] results) Medical Service) BILIRUBIN, TOTAL NEGATIVE Normal (applies MEDGEN to non-numeric ([place] results) Medical Service) Ketones NEGATIVE Normal (applies MEDGEN [Presence] in to non-numeric ([place] Blood by Tablet results) Medical Service) Specific gravity 1.025 SG Normal (applies MEDGEN of Pericardial units to non-numeric ([place] fluid by results) Medical Refractometry Service) Blood [Presence] MODERATE Normal (applies MEDGEN in Urine by to non-numeric ([place] Visual results) Medical Service) pH of Lower 6 Ph units Normal (applies MEDGEN respiratory to non-numeric ([place] specimen results) Medical Service) Protein 30 mg/dL Normal (applies MEDGEN [Mass/volume] in to non-numeric ([place] [facility] Lower results) Medical respiratory Service) specimen Urobilinogen 4.0 mg/dl Normal (applies MEDGEN [Presence] in to non-numeric ([place] Urine by results) Medical Automated test Service) strip Nitrite NEGATIVE Normal (applies MEDGEN [Presence] in to non-numeric ([place] Urine by Test results) Medical strip Service) Leukocyte NEGATIVE Normal (applies MEDGEN esterase to non-numeric ([place] [Presence] in results) Medical Body fluid by Service) Automated test strip Color of PIA Normal (applies MEDGEN Peritoneal to non-numeric ([place] dialysis fluid results) Medical Service) TRANSPARENCY CLOUDY Normal (applies MEDGEN to non-numeric ([place] results) Medical Service) RBC`S 21-50 Normal (applies MEDGEN to non-numeric ([place] results) Medical Service) WBC`S 6-10 Normal (applies MEDGEN to non-numeric ([place] results) Medical Service) SQUAMOUS FEW Normal (applies MEDGEN EPITHELIAL to non-numeric ([place] results) Medical Service) MUCOUS FEW Normal (applies MEDGEN to non-numeric ([place] results) Medical Service) Calcium Oxalate FEW Normal (applies MEDGEN Crystal to non-numeric ([place] results) Medical Service) ID Date Data Source [id number] 08/29/2018 12:00:00 AM EDT MEDGEN ([facility] Service) Name Value Range Interpretation Description Data Sup porting Code Source(s) Document(s ) WBC 5.2 Normal (applies MEDGEN 10(3)/uL to non-numeric ([place] results) Medical Service) RBC 5.7 Normal (applies MEDGEN 10(6)/uL to non-numeric ([place] results) Medical Service) Hemoglobin 16.9 g/dL Normal (applies MEDGEN [Mass/volume] to non-numeric ([place] in Mixed venous results) Medical blood by Service) Oximetry Hematocrit 50.1 % Above high normal MEDGEN [Pure volume ([place] fraction] of Medical Blood by Service) Automated count MCV 87.9 fL Normal (applies MEDGEN to non-numeric ([place] results) Medical Service) MCH 30 pg Normal (applies MEDGEN to non-numeric ([place] results) Medical Service) MCHC 34 g/dL Normal (applies MEDGEN to non-numeric ([place] results) Medical Service) RDWSD 42.9 fL Normal (applies MEDGEN to non-numeric ([place] results) Medical Service) RDWCV 13.6 % Normal (applies MEDGEN to non-numeric ([place] results) Medical Service) Platelet Count 94 Below low normal MEDGEN 10(3)/uL ([place] [facility] Service) MPV 11.8 fL Normal (applies MEDGEN to non-numeric ([place] results) Medical Service) Neutrophil Abs 2.22 Normal (applies MEDGEN 10(3)/uL to non-numeric ([place] results) Medical Service) Lymphocyte Abs 2.04 Normal (applies MEDGEN 10(3)/uL to non-numeric ([place] results) Medical Service) Monocyte Abs 0.52 Normal (applies [facility] 10(3)/uL to non-numeric ([place] results) Medical Service) Eosinophil Abs 0.41 Above high normal [facility] 10(3)/uL ([place] [facility]) Neutrophil % 42.50 % Normal (applies [facility] to non-numeric ([place] results) Medical Service) Lymphocyte % 39 % Normal (applies [facility] to non-numeric ([place] results) Medical Service) Monocyte % 9.9 % Normal (applies [facility] to non-numeric ([place] results) Medical Service) Eosinophil % 7.8 % Above high normal [facility] ([place] [facility]) Basophil % 0.6 % Normal (applies [facility] to non-numeric ([place] results) Medical Service) Immature 0.20 % Normal (applies [facility] Granulocyte % to non-numeric ([place] results) Medical Service) ID Date Data Source [id number] 08/29/2018 12:00:00 AM EDT [facility] ([facility]) Name Value Range Interpretation Code Description Data Supporting Source(s) Document(s ) GLYCOMARK 15.41 Normal (applies to [facility] ug/mL non-numeric ([place] results) Medical Service) ID Date Data Source [id number] 08/29/2018 12:00:00 AM EDT [facility] ([facility]) Name Value Range Interpretation Description Data Sup porting Code Source(s) Document(s ) Hemoglobin A1c 5.5 % Normal (applies to [facility] in Blood non-numeric ([place] results) Medical Service) ID Date Data Source [id number] 08/29/2018 12:00:00 AM EDT [facility] ([facility]) Name Value Range Interpretation Code Description Data Libra rce(s) Supporting Document(s ) ID Date Data Source [id number] 08/29/2018 12:00:00 AM EDT [facility] ([facility]) Name Value Range Interpretation Code Description Data Libra rce(s) Supporting Document(s ) %PSA, Test not Normal (applies to [facility] FREE performed. non-numeric ([place] results) Medical Service) ID Date Data Source [id number] 08/29/2018 12:00:00 AM EDT [facility] ([facility]) Name Value Range Interpretation Code Description Data Libra rce(s) Supporting Document(s ) PSA, FREE 0.87 ng/mL Normal (applies to [facility] non-numeric ([place] results) Medical Service) ID Date Data Source [id number] 08/29/2018 12:00:00 AM EDT [facility] ([facility]) Name Value Range Interpretation Code Description Data Supporting Source(s) Document(s ) PSA, TOTAL 2.24 ng/mL Normal (applies to [facility] non-numeric ([place] results) Medical Service) ID Date Data Source [id number] 08/29/2018 12:00:00 AM EDT [facility] ([facility]) Name Value Range Interpretation Description Data Sup porting Code Source(s) Document(s ) TSH,3RD 1.98 Normal (applies to [facility] GENERATION uIU/mL non-numeric ([place] results) Medical Service) T4 TOTAL 10.4 Normal (applies to [facility] THYROXINE ug/dL non-numeric ([place] results) Medical Service) T3 TOTAL 150 ng/dL Normal (applies to [facility] non-numeric ([place] results) Medical Service) ID Date Data Source [id number] 08/29/2018 12:00:00 AM EDT [facility] ([facility]) Name Value Range Interpretation Description Data Sup porting Code Source(s) Document(s ) Cholesterol 138 Normal (applies [facility] [Moles/volume] mg/dL to non-numeric ([place] in Pericardial results) Medical fluid Service) LDL CALCULATION 80.2 Normal (applies [facility] mg/dL to non-numeric ([place] results) Medical Service) CHOL/HDL RATIO 3.94 Normal (applies [facility] ratio to non-numeric ([place] results) Medical Service) VLDL CALCULATION 22.8 Normal (applies [facility] mg/dl to non-numeric ([place] results) Medical Service) HDL CHOLESTEROL 35 mg/dL Above high normal [facility] ([place] [facility] Service) TRIGLYCERIDES 114 Normal (applies [facility] mg/dL to non-numeric ([place] results) Medical Service) ID Date Data Source [id number] 08/29/2018 12:00:00 AM EDT [facility] ([facility]) Name Value Range Interpretation Description Data Sup porting Code Source(s) Document(s ) GLUCOSE 86 mg/dL Normal (applies [facility] NONFASTING,SERUM [facility] SODIUM, SERUM 142 Normal (applies [facility] mEq/L to non-numeric ([place] results) Medical Service) POTASSIUM, SERUM 4.1 Normal (applies [facility] mEq/L to non-numeric ([place] results) Medical Service) CHLORIDE, SERUM 108 Normal (applies [facility] mEq/L to non-numeric ([place] results) Medical Service) Carbon dioxide 22 mEq/L Normal (applies [facility] [VFr/PPres] in to non-numeric ([place] Gas delivery results) Medical system Service) Anion gap in 16 mEq/L Normal (applies [facility] Body fluid to non-numeric ([place] results) Medical Service) CREATININE, 1.40 Above high normal [facility] SERUM mg/dL ([place] [facility] Service) BLOOD UREA 24 mg/dL Above high normal [facility] NITROGEN ([place] Medical Service) BUN/CREATININE 17.1 Normal (applies [facility] RATIO to non-numeric ([place] results) Medical Service) CALCIUM, SERUM 8.9 Normal (applies [facility] mg/dL to non-numeric ([place] results) Medical Service) TOTAL PROTEIN 6.7 g/dL Normal (applies [facility] to non-numeric ([place] results) Medical Service) Microalbumin 4.3 g/dL Normal (applies [facility] [Mass/time] in to non-numeric ([place] Urine collected results) Medical for unspecified Service) duration Globulin 2.4 gldl Normal (applies [facility]GEN [Mass/time] in to non-numeric ([place] 24 hour Urine results) Medical Service) A/G RATIO 1.79 Normal (applies [facility] g/dl to non-numeric ([place] results) Medical Service) BILIRUBIN, TOTAL 0.7 Normal (applies [facility] mg/dL to non-numeric ([place] results) Medical Service) ALKALINE 104 U/L Normal (applies [facility] PHOSPHATASE, ALP to non-numeric ([facility] results) Medical Service) ALT (SGPT) 43 U/L Normal (applies [facility]GEN to non-numeric ([place] results) Medical Service) AST 31 U/L Normal (applies [facility]GEN to non-numeric ([place] results) Medical Service) EGFR NON AFR 55 Above high normal MEDGEN ICELANDIC mL/min/1 ([place] .73m2 Medical Service) EGFR AFR 66 Above high normal [facility] ICELANDIC mL/min/1 ([place] .73m2 Medical Service) ID Date Data Source [id number] 08/29/2018 12:00:00 AM EDT [facility] ([facility]) Name Value Range Interpretation Description Data Sup porting Code Source(s) Document(s ) GLUCOSE UA NEGATIVE Normal (applies [facility] to non-numeric ([place] results) Medical Service) BILIRUBIN, TOTAL NEGATIVE Normal (applies [facility] to non-numeric ([place] results) Medical Service) Ketones NEGATIVE Normal (applies [facility]GEN [Presence] in to non-numeric ([place] Blood by Tablet results) Medical Service) Specific gravity 1.025 SG Normal (applies MEDGEN of Pericardial units to non-numeric ([place] fluid by results) Medical Refractometry Service) Blood [Presence] MODERATE Normal (applies [facility] in Urine by to non-numeric ([place] Visual results) Medical Service) pH of Lower 6 Ph units Normal (applies MEDGEN respiratory to non-numeric ([place] specimen results) Medical Service) Urobilinogen 4.0 mg/dl Normal (applies [facility]GEN [Presence] in to non-numeric ([place] Urine by results) Medical Automated test Service) strip Protein 30 mg/dL Normal (applies [facility] [Mass/volume] in to non-numeric ([place] Lower results) Medical respiratory Service) specimen Nitrite NEGATIVE Normal (applies [facility]GEN [Presence] in to non-numeric ([place] Urine by Test results) Medical strip Service) Leukocyte NEGATIVE Normal (applies MEDGEN esterase to non-numeric ([place] [Presence] in results) Medical Body fluid by Service) Automated test strip Color of PIA Normal (applies MEDGEN Peritoneal to non-numeric ([place] dialysis fluid results) Medical Service) TRANSPARENCY CLOUDY Normal (applies [facility] to non-numeric ([place] results) Medical Service) RBC`S 21-50 Normal (applies [facility] to non-numeric ([place] results) Medical Service) WBC`S 6-10 Normal (applies [facility] to non-numeric ([place] results) Medical Service) SQUAMOUS FEW Normal (applies [facility] EPITHELIAL to non-numeric ([place] results) Medical Service) MUCOUS FEW Normal (applies [facility] to non-numeric ([place] results) Medical Service) Calcium Oxalate FEW Normal (applies MEDGEN Crystal to non-numeric ([place] results) Medical Service) ID Date Data Source [id number] 08/29/2018 12:00:00 AM EDT [facility] ([facility] Service) Name Value Range Interpretation Description Data Sup porting Code Source(s) Document(s ) WBC 5.2 Normal (applies [facility] 10(3)/uL to non-numeric ([place] results) Medical Service) RBC 5.7 Normal (applies [facility] 10(6)/uL to non-numeric ([place] results) Medical Service) Hemoglobin 16.9 g/dL Normal (applies [facility] [Mass/volume] to non-numeric ([place] in Mixed venous results) Medical blood by Service) Oximetry Hematocrit 50.1 % Above high normal MEDGEN [Pure volume ([place] fraction] of Medical Blood by Service) Automated count MCV 87.9 fL Normal (applies [facility]GEN to non-numeric ([place] results) Medical Service) MCHC 34 g/dL Normal (applies [facility] to non-numeric ([place] results) Medical Service) MCH 30 pg Normal (applies [facility] to non-numeric ([place] results) Medical Service) RDWSD 42.9 fL Normal (applies [facility] to non-numeric ([place] results) Medical Service) RDWCV 13.6 % Normal (applies [facility] to non-numeric ([place] results) Medical Service) Platelet Count 94 Below low normal [facility] 10(3)/uL ([place] Medical Service) MPV 11.8 fL Normal (applies [facility] to non-numeric ([place] results) Medical Service) Neutrophil Abs 2.22 Normal (applies [facility] 10(3)/uL to non-numeric ([place] results) Medical Service) Lymphocyte Abs 2.04 Normal (applies [facility] 10(3)/uL to non-numeric ([place] results) Medical Service) Monocyte Abs 0.52 Normal (applies [facility] 10(3)/uL to non-numeric ([place] results) Medical Service) Eosinophil Abs 0.41 Above high normal [facility] 10(3)/uL ([place] [facility] Service) Neutrophil % 42.50 % Normal (applies [facility] to non-numeric ([place] results) Medical Service) Lymphocyte % 39 % Normal (applies [facility] to non-numeric ([place] results) Medical Service) Monocyte % 9.9 % Normal (applies [facility] to non-numeric ([place] results) Medical Service) Eosinophil % 7.8 % Above high normal [facility] ([place] Medical Service) Basophil % 0.6 % Normal (applies [facility] to non-numeric ([place] results) Medical Service) Immature 0.20 % Normal (applies [facility]GEN Granulocyte % to non-numeric ([place] results) Medical Service) ID Date Data Source [id number] 08/29/2018 12:00:00 AM EDT [facility] ([facility]) Name Value Range Interpretation Code Description Data Supporting Source(s) Document(s ) GLYCOMARK 15.41 Normal (applies to [facility] ug/mL non-numeric ([place] results) Medical Service) ID Date Data Source [id number] 08/29/2018 12:00:00 AM EDT [facility] ([facility]) Name Value Range Interpretation Description Data Sup porting Code Source(s) Document(s ) Hemoglobin A1c 5.5 % Normal (applies to [facility] in Blood non-numeric ([place] results) Medical Service) ID Date Data Source [id number] 08/29/2018 12:00:00 AM EDT [facility] ([facility] Service) Name Value Range Interpretation Description Data Sup porting Code Source(s) Document(s ) ORGANISM Normal (applies [facility] to non-numeric ([place] results) Medical Service) Comment Normal (applies [facility] [Interpretation] to non-numeric ([place] Left eye Narrative results) Medical Ophthalmometer Service) ID Date Data Source [id number] 08/29/2018 12:00:00 AM EDT [facility] ([facility] Service) Name Value Range Interpretation Code Description Data Libra rce(s) Supporting Document(s ) %PSA, Test not Normal (applies to [facility] FREE performed. non-numeric ([place] results) Medical Service) ID Date Data Source [id number] 08/29/2018 12:00:00 AM EDT [facility] ([facility]) Name Value Range Interpretation Code Description Data Libra rce(s) Supporting Document(s ) PSA, FREE 0.87 ng/mL Normal (applies to [facility]GEN non-numeric ([place] results) Medical Service) ID Date Data Source [id number] 03/14/2018 12:00:00 AM EST [facility] ([facility] Service) Name Value Range Interpretation Description Data Sup porting Code Source(s) Document(s ) FISH,VYSIS Specimen# Normal (applies to MEDGEN UROVYSION [id number] non-numeric ([place] 555 results) Medical Service) ID Date Data Source [id number] 03/14/2018 12:00:00 AM EST [facility] ([facility]) Name Value Range Interpretation Description Data Sup porting Code Source(s) Document(s ) FISH,VYSIS Specimen# Normal (applies to [facility] UROVYSION [id number] non-numeric ([place] 555 results) Medical Service) ID Date Data Source [id number] 03/14/2018 12:00:00 AM EST [facility] ([facility]) Name Value Range Interpretation Description Data Sup porting Code Source(s) Document(s ) FISH,VYSIS Specimen# Normal (applies to [facility] UROVYSION [id number] non-numeric ([place] 555 results) Medical Service) ID Date Data Source [id number] 03/14/2018 12:00:00 AM EST [facility] ([facility]) Name Value Range Interpretation Description Data Sup porting Code Source(s) Document(s ) FISH,VYSIS Specimen# Normal (applies to [facility] UROVYSION [id number] non-numeric ([place] 555 results) Medical Service) ID Date Data Source [id number] 03/14/2018 12:00:00 AM EST [facility] ([facility]) Name Value Range Interpretation Description Data Sup porting Code Source(s) Document(s ) FISH,VYSIS Specimen# Normal (applies to MED[facility] UROVYSION [id number] non-numeric ([place] 555 results) Medical Service) ID Date Data Source [id number] 03/12/2018 12:00:00 AM EST [facility] ([facility]) Name Value Range Interpretation Code Description Data Supporting Source(s) Document(s ) Methadone 3029 Normal (applies to [facility] [Mass/volume] non-numeric ([place] in Blood results) Medical Service) EDDP 785 Normal (applies to [facility] non-numeric ([place] results) Medical Service) ID Date Data Source [id number] 03/12/2018 12:00:00 AM EST [facility] ([facility]) Name Value Range Interpretation Description Data Sup porting Code Source(s) Document(s ) Propoxyphene NEGATIVE Normal (applies MED[facility] [Presence] in to non-numeric ([place] Meconium by results) Medical Screen method Service) ID Date Data Source [id number] 03/12/2018 12:00:00 AM EST [facility] ([facility]) Name Value Range Interpretation Description Data Sup porting Code Source(s) Document(s ) Ethyl NEGATIVE Normal (applies MEDGEN glucuronide to non-numeric ([place] Screen results) Medical Service) ID Date Data Source [id number] 03/12/2018 12:00:00 AM EST [facility] ([facility]) Name Value Range Interpretation Description Data Sup porting Code Source(s) Document(s ) Buprenorphine NEGATIVE Normal (applies [facility] [Presence] in to non-numeric ([place] Blood by Screen results) Medical method Service) Norbuprenorphine NEGATIVE Normal (applies [facility] [Mass/mass] in to non-numeric ([place] Meconium by results) Medical Confirmatory Service) method ID Date Data Source [id number] 03/12/2018 12:00:00 AM EST [facility] ([facility]) Name Value Range Interpretation Description Data Sup porting Code Source(s) Document(s ) Cannabinoids NEGATIVE Normal (applies [facility] Screen to non-numeric ([place] results) Medical Service) ID Date Data Source [id number] 03/12/2018 12:00:00 AM EST [facility] ([facility]) Name Value Range Interpretation Description Data Sup porting Code Source(s) Document(s ) Benzoylecgonine NEGATIVE Normal (applies [facility] [Moles/volume] in to non-numeric ([place] Unspecified results) Medical specimen Service) ID Date Data Source [id number] 03/12/2018 12:00:00 AM EST [facility] ([facility]) Name Value Range Interpretation Code Description Data Libra rce(s) Supporting Document(s ) MDA NEGATIVE Normal (applies to MEDGEN non-numeric results) ([place] Medical Service) MDMA NEGATIVE Normal (applies to [facility] non-numeric results) ([place] Medical [facility]) ID Date Data Source [id number] 03/12/2018 12:00:00 AM EST [facility] ([facility]) Name Value Range Interpretation Code Description Data Libra rce(s) Supporting Document(s ) ID Date Data Source [id number] 03/12/2018 12:00:00 AM EST [facility] ([facility]) Name Value Range Interpretation Description Data Sup porting Code Source(s) Document(s ) Phencyclidine NEGATIVE Normal (applies MED[facility] [Presence] in to non-numeric ([place] Unknown results) Medical substance by Service) Confirmatory method ID Date Data Source [id number] 03/12/2018 12:00:00 AM EST [facility] ([facility]) Name Value Range Interpretation Code Description Data Libra rce(s) Supporting Document(s ) ID Date Data Source [id number] 03/12/2018 12:00:00 AM EST [facility] ([facility]) Name Value Range Interpretation Description Data Sup porting Code Source(s) Document(s ) Oxycodone 3281 Normal (applies to MED[facility] [Mass/volume] in non-numeric ([place] Serum, Plasma or results) Medical Blood by Service) Confirmatory method Oxymorphone 2401 Normal (applies to MEDGEN [Z-score] in non-numeric ([place] Urine results) Medical Service) Noroxycodone >79412 Normal (applies to MEDGEN [Mass/volume] in non-numeric ([place] Saliva (oral results) Medical fluid) by Service) Confirmatory method ID Date Data Source [id number] 03/12/2018 12:00:00 AM EST [facility] ([facility]) Name Value Range Interpretation Code Description Data Libra rce(s) Supporting Document(s ) 6-Acetylmo >1000 Normal (applies to MEDGEN rphine non-numeric results) ([place] Medical Service) ID Date Data Source [id number] 03/12/2018 12:00:00 AM EST [facility] ([facility]) Name Value Range Interpretation Description Data Sup porting Code Source(s) Document(s ) Codeine 952 Normal (applies MEDGEN [Presence] in to non-numeric ([place] Saliva (oral results) Medical fluid) by Service) Confirmatory method Hydrocodone NEGATIVE Normal (applies [facility] [Z-score] in to non-numeric ([place] Urine results) Medical Service) Hydromorphone 100 Normal (applies MED[facility] [Presence] in to non-numeric ([place] Saliva (oral results) Medical fluid) by Service) Confirmatory method Morphine >86633 Normal (applies MED[facility] [Mass/mass] in to non-numeric ([place] Hair results) Medical Service) Norhydrocodone NEGATIVE Normal (applies [facility] [Presence] in to non-numeric ([place] Saliva (oral results) Medical fluid) by Service) Confirmatory method ID Date Data Source [id number] 03/12/2018 12:00:00 AM EST [facility] ([facility] Service) Name Value Range Interpretation Description Data Sup porting Code Source(s) Document(s ) Barbiturates NEGATIVE Normal (applies MED[facility] Screen to non-numeric ([place] results) Medical Service) ID Date Data Source [id number] 03/12/2018 12:00:00 AM EST [facility] ([facility] Service) Name Value Range Interpretation Description Data Sup porting Code Source(s) Document(s ) Alpha-Hydroxyal 363 Normal (applies MEDGEN prazolam to non-numeric ([place] results) Medical Service) 7-Aminoclonazep NEGATIVE Normal (applies MEDGEN am [Mass/mass] to non-numeric ([place] in Hair results) Medical Service) Lorazepam NEGATIVE Normal (applies MEDGEN [Moles/volume] to non-numeric ([place] in Unspecified results) Medical specimen Service) Nordiazepam NEGATIVE Normal (applies MEDGEN [Moles/volume] to non-numeric ([place] in Unspecified results) Medical specimen Service) Oxazepam 31 Normal (applies MEDGEN [Moles/volume] to non-numeric ([place] in Unspecified results) Medical specimen Service) Temazepam NEGATIVE Normal (applies [facility] [Moles/volume] to non-numeric ([place] in Unspecified results) Medical specimen Service) ID Date Data Source [id number] 03/12/2018 12:00:00 AM EST [facility] ([facility]) Name Value Range Interpretation Description Data Sup porting Code Source(s) Document(s ) Amphetamine NEGATIVE Normal (applies [facility] [Mass/mass] in to non-numeric ([place] Hair by results) Medical Confirmatory Service) method Methamphetamine NEGATIVE Normal (applies [facility] [Mass/mass] in to non-numeric ([place] Hair results) Medical Service) Phentermine NEGATIVE Normal (applies [facility] [Mass/volume] in to non-numeric ([place] Serum or Plasma by results) Medical Confirmatory Service) method ID Date Data Source [id number] 03/12/2018 12:00:00 AM EST [facility] ([facility]) Name Value Range Interpretation Description Data Sup porting Code Source(s) Document(s ) HEPATITIS NONREACTIVE Normal (applies MEDGEN A(IGM) to non-numeric ([place] results) Medical Service) ID Date Data Source [id number] 03/12/2018 12:00:00 AM EST [facility] ([facility]) Name Value Range Interpretation Code Description Data Libra rce(s) Supporting Document(s ) HEP C SEE NOTE Normal (applies to MED[facility] VIRAL RNA non-numeric ([place] PCR QUANT results) Medical Service) ID Date Data Source [id number] 03/12/2018 12:00:00 AM EST [facility] ([facility]) Name Value Range Interpretation Description Data Sup porting Code Source(s) Document(s ) ORGANISM Normal (applies [facility] to non-numeric ([place] results) Medical Service) Comment Normal (applies [facility] [Interpretation] to non-numeric ([place] Left eye Narrative results) Medical Ophthalmometer Service) ID Date Data Source [id number] 03/12/2018 12:00:00 AM EST [facility] ([facility]) Name Value Range Interpretation Description Data Sup porting Code Source(s) Document(s ) HIV 1,2 NONREACTIVE Normal (applies MEDGEN AG/AB,4TH to non-numeric ([place] GENERATION results) Medical Service) ID Date Data Source [id number] 03/12/2018 12:00:00 AM EST [facility] ([facility] Service) Name Value Range Interpretation Description Data Sup porting Code Source(s) Document(s ) RPR W/RFX NONREACTIVE Normal (applies to MEDGEN TITER non-numeric ([place] results) Medical Service) ID Date Data Source [id number] 03/12/2018 12:00:00 AM EST [facility] ([facility]) Name Value Range Interpretation Description Data Sup porting Code Source(s) Document(s ) Amphetamines NEGATIVE Normal (applies MEDGEN [Presence] in to non-numeric ([place] Stool results) Medical Service) BENZODIAZEPINE POSITIVE Abnormal MEDGEN (applies to ([place] non-numeric Medical results) Service) Barbiturates NEGATIVE Normal (applies [facility] [Mass/volume] in to [facility] Service) Methadone POSITIVE Abnormal MEDGEN [Mass/volume] in (applies to ([place] Blood non-numeric Medical results) Service) Opiates POSITIVE Abnormal MEDGEN [Presence] in (applies to ([place] Unknown substance non-numeric Medical by Confirmatory results) Service) method PCP NEGATIVE Normal (applies MEDGEN (PHENCYCLIDINE) to non-numeric ([place] results) Medical Service) Cocaine NEGATIVE Normal (applies MEDGEN [Presence] in to non-numeric ([place] Unknown substance results) Medical by Confirmatory Service) method Cannabinoids NEGATIVE Normal (applies MEDGEN [Presence] in to non-numeric ([place] Unknown substance results) Medical by Confirmatory Service) method Propoxyphene NEGATIVE Normal (applies MEDGEN [Presence] in to non-numeric ([place] Meconium by results) Medical Screen method Service) Ethanol NEGATIVE Normal (applies MEDGEN [Mass/volume] in to non-numeric ([place] Urine collected results) Medical for unspecified Service) duration CREATININE,URINE 276.2 Above high MEDGEN mg/dL normal ([place] Medical Service) ID Date Data Source [id number] 03/12/2018 12:00:00 AM EST [facility] ([facility] Service) Name Value Range Interpretation Description Data Sup porting Code Source(s) Document(s ) HEPATITIS BE NONREACTIVE Normal (applies MEDGEN AG to non-numeric ([place] results) Medical Service) ID Date Data Source [id number] 03/12/2018 12:00:00 AM EST [facility] ([facility]) Name Value Range Interpretation Description Data Sup porting Code Source(s) Document(s ) HEPATITIS B <3.10 Normal (applies to MEDGEN SURFACE AB (NONREACT non-numeric ([place] MONTSE) results) Medical Service) ID Date Data Source [id number] 03/12/2018 12:00:00 AM EST [facility] ([facility]) Name Value Range Interpretation Description Data Sup porting Code Source(s) Document(s ) HEPATITIS B REACTIVE Normal (applies to MED[facility] CORE AB QL non-numeric ([place] results) Medical Service) ID Date Data Source [id number] 03/12/2018 12:00:00 AM EST [facility] ([facility]) Name Value Range Interpretation Description Data Sup porting Code Source(s) Document(s ) HEPATITIS C REACTIVE Normal (applies to [facility] AB QL non-numeric ([place] results) Medical Service) ID Date Data Source [id number] 03/12/2018 12:00:00 AM EST [facility] ([facility]) Name Value Range Interpretation Code Description Data Libra rce(s) Supporting Document(s ) HBeAB NEGATIVE Normal (applies to [facility] non-numeric results) ([place] [facility]) ID Date Data Source [id number] 03/12/2018 12:00:00 AM EST [facility] ([facility]) Name Value Range Interpretation Description Data Sup porting Code Source(s) Document(s ) HEPATITIS BS NONREACTIVE Normal (applies [facility] AG SCREEN to non-numeric ([place] results) Medical Service) ID Date Data Source [id number] 03/12/2018 12:00:00 AM EST [facility] ([facility]) Name Value Range Interpretation Description Data Sup porting Code Source(s) Document(s ) HEPATITIS A REACTIVE Normal (applies to [facility] AB non-numeric ([place] results) Medical Service) ID Date Data Source [id number] 03/12/2018 12:00:00 AM EST [facility] ([facility]) Name Value Range Interpretation Code Description Data Libra rce(s) Supporting Document(s ) T.VAGINAL NEGATIVE Normal (applies to [facility] IS rRNA non-numeric ([place] results) Medical Service) ID Date Data Source [id number] 03/12/2018 12:00:00 AM EST [facility] ([facility]) Name Value Range Interpretation Description Data Sup porting Code Source(s) Document(s ) CHLAMYDIA NEGATIVE Normal (applies [facility] TRACHOMATIS RNA to non-numeric ([place] results) Medical Service) NEISSERIA NEGATIVE Normal (applies [facility] GONORRHOEAE RNA to non-numeric ([place] results) Medical Service) ID Date Data Source [id number] 03/12/2018 12:00:00 AM EST [facility] ([facility]) Name Value Range Interpretation Description Data Sup porting Code Source(s) Document(s ) GLUCOSE UA NEGATIVE Normal (applies MED[facility] to non-numeric ([place] results) Medical Service) BILIRUBIN, TOTAL NEGATIVE Normal (applies [facility] to non-numeric ([place] results) Medical Service) Ketones NEGATIVE Normal (applies [facility] [Presence] in to non-numeric ([place] Blood by Tablet results) Medical Service) Specific gravity 1.024 SG Normal (applies MEDGEN of Pericardial units to non-numeric ([place] fluid by results) Medical Refractometry Service) Blood [Presence] LARGE Normal (applies MEDGEN in Urine by to non-numeric ([place] Visual results) Medical Service) pH of Lower 5 Ph units Normal (applies MEDGEN respiratory to non-numeric ([place] specimen results) Medical Service) Protein 30 mg/dL Normal (applies [facility] [Mass/volume] [facility] Service) specimen Urobilinogen 0-2.0 Normal (applies MED[facility] [Presence] in to non-numeric ([place] Urine by results) Medical Automated test Service) strip Nitrite NEGATIVE Normal (applies MED[facility] [Presence] in to non-numeric ([place] Urine by Test results) Medical strip Service) Leukocyte MODERATE Normal (applies [facility] esterase to non-numeric ([place] [Presence] in results) Medical Body fluid by Service) Automated test strip Color of PIA Normal (applies MEDGEN Peritoneal to non-numeric ([place] dialysis fluid results) Medical Service) TRANSPARENCY CLOUDY Normal (applies MEDGEN to non-numeric ([place] results) Medical Service) RBC`S >50 Above high MEDGEN normal ([place] [facility]) WBC`S 11-20 Normal (applies MEDGEN to non-numeric ([place] results) Medical Service) SQUAMOUS FEW Normal (applies [facility] EPITHELIAL to non-numeric ([place] results) Medical Service) MUCOUS MODERATE Normal (applies [facility] to non-numeric ([place] results) Medical Service) Calcium Oxalate MOD Normal (applies MEDGEN Crystal to non-numeric ([place] results) Medical Service) ID Date Data Source [id number] 03/12/2018 12:00:00 AM EST MEDGEN ([facility] [employer] [facility]) Name Value Range Interpretation Code Description Data Libra rce(s) Supporting Document(s ) MDA NEGATIVE Normal (applies to MEDGEN non-numeric results) ([place] [facility]) MDMA NEGATIVE Normal (applies to [facility]GEN non-numeric results) ([place]) ID Date Data Source [id number] 03/12/2018 12:00:00 AM EST MEDGEN ([facility] [employer] [facility]) Name Value Range Interpretation Code Description Data Libra rce(s) Supporting Document(s ) ID Date Data Source [id number] 03/12/2018 12:00:00 AM EST MEDGEN ([facility] [employer] [facility]) Name Value Range Interpretation Description Data Sup porting Code Source(s) Document(s ) Phencyclidine NEGATIVE Normal (applies MED[facility] [Presence] in to non-numeric ([place] Unknown results) Medical substance by Service) Confirmatory method ID Date Data Source [id number] 03/12/2018 12:00:00 AM EST MEDGEN ([employer] [facility]) Name Value Range Interpretation Code Description Data Libra rce(s) Supporting Document(s ) ID Date Data Source [id number] 03/12/2018 12:00:00 AM EST MEDGEN ([facility] [employer] [facility]) Name Value Range Interpretation Description Data Sup porting Code Source(s) Document(s ) Oxycodone 3281 Normal (applies to MEDGEN [Mass/volume] in non-numeric ([place] Serum, Plasma or results) Medical Blood by Service) Confirmatory method Oxymorphone 2401 Normal (applies to MEDGEN [Z-score] in non-numeric ([place] Urine results) Medical Service) Noroxycodone >28163 Normal (applies to [facility]GEN [Mass/volume] in non-numeric ([place] Saliva (oral results) Medical fluid) by Service) Confirmatory method ID Date Data Source [id number] 03/12/2018 12:00:00 AM EST MEDGEN ([facility] [employer] [facility]) Name Value Range Interpretation Code Description Data Libra rce(s) Supporting Document(s ) 6-Acetylmo >1000 Normal (applies to MED[facility] rphine non-numeric results) ([facility]) ID Date Data Source [id number] 03/12/2018 12:00:00 AM EST [facility] ([facility]) Name Value Range Interpretation Description Data Sup porting Code Source(s) Document(s ) Codeine 952 Normal (applies MEDGEN [Presence] in to non-numeric ([place] Saliva (oral results) Medical fluid) by Service) Confirmatory method Hydrocodone NEGATIVE Normal (applies [facility] [Z-score] in to non-numeric ([place] Urine results) Medical Service) Hydromorphone 100 Normal (applies MEDGEN [Presence] in to non-numeric ([place] Saliva (oral results) Medical fluid) by Service) Confirmatory method Morphine >79598 Normal (applies MEDGEN [Mass/mass] in to non-numeric ([place] Hair results) Medical Service) Norhydrocodone NEGATIVE Normal (applies MEDGEN [Presence] in to non-numeric ([place] Saliva (oral results) Medical fluid) by Service) Confirmatory method ID Date Data Source [id number] 03/12/2018 12:00:00 AM EST MEDGEN ([facility]) Name Value Range Interpretation Description Data Sup porting Code Source(s) Document(s ) Barbiturates NEGATIVE Normal (applies MEDGEN Screen to non-numeric ([place] results) Medical Service) ID Date Data Source [id number] 03/12/2018 12:00:00 AM EST MEDGEN ([facility] [employer] [facility]) Name Value Range Interpretation Description Data Sup porting Code Source(s) Document(s ) Alpha-Hydroxyal 363 Normal (applies MEDGEN prazolam to non-numeric ([place] results) Medical Service) 7-Aminoclonazep NEGATIVE Normal (applies MEDGEN am [Mass/mass] to non-numeric ([place] in Hair results) Medical Service) Lorazepam NEGATIVE Normal (applies MEDGEN [Moles/volume] to non-numeric ([place] in Unspecified results) Medical specimen Service) Nordiazepam NEGATIVE Normal (applies MEDGEN [Moles/volume] to non-numeric ([place] in Unspecified results) Medical specimen Service) Oxazepam 31 Normal (applies MEDGEN [Moles/volume] to non-numeric ([place] in Unspecified results) Medical specimen Service) Temazepam NEGATIVE Normal (applies MEDGEN [Moles/volume] to non-numeric ([place] in Unspecified results) Medical specimen Service) ID Date Data Source [id number] 03/12/2018 12:00:00 AM EST [facility] ([facility]) Name Value Range Interpretation Description Data Sup porting Code Source(s) Document(s ) Amphetamine NEGATIVE Normal (applies MED[facility] [Mass/mass] in to non-numeric ([place] Hair by results) Medical Confirmatory Service) method Methamphetamine NEGATIVE Normal (applies [facility] [Mass/mass] in to non-numeric ([place] Hair results) Medical Service) Phentermine NEGATIVE Normal (applies [facility] [Mass/volume] in to non-numeric ([place] [facility] Serum or Plasma by results) Medical Confirmatory Service) method ID Date Data Source [id number] 03/12/2018 12:00:00 AM EST [facility] ([facility]) Name Value Range Interpretation Description Data Sup porting Code Source(s) Document(s ) HEPATITIS NONREACTIVE Normal (applies MED[facility] A(IGM) to non-numeric ([place] results) Medical Service) ID Date Data Source [id number] 03/12/2018 12:00:00 AM EST [facility] ([facility]) Name Value Range Interpretation Code Description Data Libra rce(s) Supporting Document(s ) HEP C SEE NOTE Normal (applies to MEDGEN VIRAL RNA non-numeric ([place] PCR QUANT results) Medical Service) ID Date Data Source [id number] 03/12/2018 12:00:00 AM EST [facility] ([facility]) Name Value Range Interpretation Description Data Sup porting Code Source(s) Document(s ) ORGANISM Normal (applies [facility] to non-numeric ([place] results) Medical Service) Comment Normal (applies [facility] [Interpretation] to non-numeric ([place] [facility] Left eye Narrative results) Medical Ophthalmometer Service) ID Date Data Source [id number] 03/12/2018 12:00:00 AM EST [facility] ([facility]) Name Value Range Interpretation Description Data Sup porting Code Source(s) Document(s ) HIV 1,2 NONREACTIVE Normal (applies MEDGEN AG/AB,4TH to non-numeric ([place] GENERATION results) Medical Service) ID Date Data Source [id number] 03/12/2018 12:00:00 AM EST [facility] ([facility]) Name Value Range Interpretation Description Data Sup porting Code Source(s) Document(s ) RPR W/RFX NONREACTIVE Normal (applies to MEDGEN TITER non-numeric ([place] results) Medical Service) ID Date Data Source [id number] 03/12/2018 12:00:00 AM EST MED[facility] ([facility]) Name Value Range Interpretation Description Data Sup porting Code Source(s) Document(s ) Amphetamines NEGATIVE Normal (applies MEDGEN [Presence] in to non-numeric ([place] Stool results) Medical Service) BENZODIAZEPINE POSITIVE Abnormal MEDGEN (applies to ([place] non-numeric Medical results) Service) Barbiturates NEGATIVE Normal (applies MEDGEN [Mass/volume] in to non-numeric ([facility] y Serum or Plasma results) Medical Service) Methadone POSITIVE Abnormal MEDGEN [Mass/volume] in (applies to ([place] Blood non-numeric Medical results) Service) Opiates POSITIVE Abnormal MEDGEN [Presence] in (applies to ([place] Unknown substance non-numeric Medical by Confirmatory results) Service) method PCP NEGATIVE Normal (applies MEDGEN (PHENCYCLIDINE) to non-numeric ([place] results) Medical Service) Cocaine NEGATIVE Normal (applies MEDGEN [Presence] in to non-numeric ([place] Unknown substance results) Medical by Confirmatory Service) method Cannabinoids NEGATIVE Normal (applies MEDGEN [Presence] in to non-numeric ([place] Unknown substance results) Medical by Confirmatory Service) method Propoxyphene NEGATIVE Normal (applies MEDGEN [Presence] in to non-numeric ([place] Meconium by results) Medical Screen method Service) Ethanol NEGATIVE Normal (applies MEDGEN [Mass/volume] in to non-numeric ([facility] y Urine collected results) Medical for unspecified Service) duration CREATININE,URINE 276.2 Above high MEDGEN mg/dL normal ([place] [facility]) ID Date Data Source [id number] 03/12/2018 12:00:00 AM EST MEDGEN ([facility]) Name Value Range Interpretation Description Data Sup porting Code Source(s) Document(s ) HEPATITIS BE NONREACTIVE Normal (applies MEDGEN AG to non-numeric ([place] results) Medical Service) ID Date Data Source [id number] 03/12/2018 12:00:00 AM EST MED[facility] ([facility]) Name Value Range Interpretation Description Data Sup porting Code Source(s) Document(s ) HEPATITIS B <3.10 Normal (applies to MEDGEN SURFACE AB (NONREACT non-numeric ([place] MONTSE) results) Medical Service) ID Date Data Source [id number] 03/12/2018 12:00:00 AM EST MEDGEN ([facility]) Name Value Range Interpretation Description Data Sup porting Code Source(s) Document(s ) HEPATITIS B REACTIVE Normal (applies to MED[facility] CORE AB QL non-numeric ([place] results) Medical Service) ID Date Data Source [id number] 03/12/2018 12:00:00 AM EST MED[facility] ([facility]) Name Value Range Interpretation Description Data Sup porting Code Source(s) Document(s ) HEPATITIS C REACTIVE Normal (applies to MEDGEN AB QL non-numeric ([place] results) Medical Service) ID Date Data Source [id number] 03/12/2018 12:00:00 AM EST [facility]) Name Value Range Interpretation Code Description Data Libra rce(s) Supporting Document(s ) HBeAB NEGATIVE Normal (applies to MEDGEN non-numeric results) ([place] [facility]) ID Date Data Source [id number] 03/12/2018 12:00:00 AM EST [facility] [employer] [facility]) Name Value Range Interpretation Description Data Sup porting Code Source(s) Document(s ) HEPATITIS BS NONREACTIVE Normal (applies MEDGEN AG SCREEN to non-numeric ([place] results) Medical Service) ID Date Data Source [id number] 03/12/2018 12:00:00 AM EST [facility] [employer] [facility]) Name Value Range Interpretation Description Data Sup porting Code Source(s) Document(s ) HEPATITIS A REACTIVE Normal (applies to MEDGEN AB non-numeric ([place] results) Medical Service) ID Date Data Source [id number] 03/12/2018 12:00:00 AM EST MEDGEN ([facility] [employer] [facility]) Name Value Range Interpretation Code Description Data Libra rce(s) Supporting Document(s ) T.VAGINAL NEGATIVE Normal (applies to MEDGEN IS rRNA non-numeric ([place] results) Medical Service) ID Date Data Source [id number] 03/12/2018 12:00:00 AM EST [facility] ([facility]) Name Value Range Interpretation Description Data Sup porting Code Source(s) Document(s ) CHLAMYDIA NEGATIVE Normal (applies MEDGEN TRACHOMATIS RNA to non-numeric ([place] results) Medical Service) NEISSERIA NEGATIVE Normal (applies MEDGEN GONORRHOEAE RNA to non-numeric ([place] results) Medical Service) ID Date Data Source [id number] 03/12/2018 12:00:00 AM EST MEDGEN ([facility]) Name Value Range Interpretation Description Data Sup porting Code Source(s) Document(s ) GLUCOSE UA NEGATIVE Normal (applies MEDGEN to non-numeric ([place] results) Medical Service) BILIRUBIN, TOTAL NEGATIVE Normal (applies MEDGEN to non-numeric ([place] results) Medical Service) Ketones NEGATIVE Normal (applies MEDGEN [Presence] in to non-numeric ([place] Blood by Tablet results) Medical Service) Specific gravity 1.024 SG Normal (applies MEDGEN of Pericardial units to non-numeric ([place] fluid by results) Medical Refractometry Service) Blood [Presence] LARGE Normal (applies MEDGEN in Urine by to non-numeric ([place] Visual results) Medical Service) pH of Lower 5 Ph units Normal (applies MEDGEN respiratory to non-numeric ([place] specimen results) Medical Service) Protein 30 mg/dL Normal (applies MEDGEN [Mass/volume] in to non-numeric ([facility] Medical respiratory Service) specimen Urobilinogen 0-2.0 Normal (applies MEDGEN [Presence] in to non-numeric ([place] Urine by results) Medical Automated test Service) strip Nitrite NEGATIVE Normal (applies MEDGEN [Presence] in to non-numeric ([place] Urine by Test results) Medical strip Service) Leukocyte MODERATE Normal (applies MEDGEN esterase to non-numeric ([place] [Presence] in results) Medical Body fluid by Service) Automated test strip Color of PIA Normal (applies MEDGEN Peritoneal to non-numeric ([place] dialysis fluid results) Medical Service) TRANSPARENCY CLOUDY Normal (applies MEDGEN to non-numeric ([place] results) Medical Service) RBC`S >50 Above high MEDGEN normal ([place] [facility] Service) WBC`S 11-20 Normal (applies MEDGEN to non-numeric ([place] results) Medical Service) SQUAMOUS FEW Normal (applies MEDGEN EPITHELIAL to non-numeric ([place] results) Medical Service) MUCOUS MODERATE Normal (applies MEDGEN to non-numeric ([place] results) Medical Service) Calcium Oxalate MOD Normal (applies MEDGEN Crystal to non-numeric ([place] results) Medical Service) ID Date Data Source [id number] 03/12/2018 12:00:00 AM EST MEDGEN ([facility] Service) Name Value Range Interpretation Code Description Data Supporting Source(s) Document(s ) Methadone 3029 Normal (applies to MEDGEN [Mass/volume] non-numeric ([place] in Blood results) Medical Service) EDDP 785 Normal (applies to MEDGEN non-numeric ([place] results) Medical Service) ID Date Data Source [id number] 03/12/2018 12:00:00 AM EST MEDGEN ([facility]) Name Value Range Interpretation Description Data Sup porting Code Source(s) Document(s ) Propoxyphene NEGATIVE Normal (applies MEDGEN [Presence] in to non-numeric ([place] Meconium by results) Medical Screen method Service) ID Date Data Source [id number] 03/12/2018 12:00:00 AM EST MEDGEN ([facility]) Name Value Range Interpretation Description Data Sup porting Code Source(s) Document(s ) Ethyl NEGATIVE Normal (applies MEDGEN glucuronide to non-numeric ([place] Screen results) Medical Service) ID Date Data Source [id number] 03/12/2018 12:00:00 AM EST MEDGEN ([facility]) Name Value Range Interpretation Description Data Sup porting Code Source(s) Document(s ) Buprenorphine NEGATIVE Normal (applies MEDGEN [Presence] in to non-numeric ([place] Blood by Screen results) Medical method Service) Norbuprenorphine NEGATIVE Normal (applies MEDGEN [Mass/mass] in to non-numeric ([place] Meconium by results) Medical Confirmatory Service) method ID Date Data Source [id number] 03/12/2018 12:00:00 AM EST MEDGEN ([facility]) Name Value Range Interpretation Description Data Sup porting Code Source(s) Document(s ) Cannabinoids NEGATIVE Normal (applies MEDGEN Screen to non-numeric ([place] results) Medical Service) ID Date Data Source [id number] 03/12/2018 12:00:00 AM EST MEDGEN ([facility] Service) Name Value Range Interpretation Description Data Sup porting Code Source(s) Document(s ) Benzoylecgonine NEGATIVE Normal (applies MEDGEN [Moles/volume] in to non-numeric ([place] [facility] Unspecified results) Medical specimen Service) ID Date Data Source [id number] 03/12/2018 12:00:00 AM EST MEDGEN ([facility]) Name Value Range Interpretation Code Description Data Libra rce(s) Supporting Document(s ) MDA NEGATIVE Normal (applies to MEDGEN non-numeric results) ([place] [facility]) MDMA NEGATIVE Normal (applies to MEDGEN non-numeric results) ([place] [facility]) ID Date Data Source [id number] 03/12/2018 12:00:00 AM EST MEDGEN ([facility]) Name Value Range Interpretation Code Description Data Libra rce(s) Supporting Document(s ) ID Date Data Source [id number] 03/12/2018 12:00:00 AM EST MEDGEN ([facility]) Name Value Range Interpretation Description Data Sup porting Code Source(s) Document(s ) Phencyclidine NEGATIVE Normal (applies MEDGEN [Presence] in to non-numeric ([place] Unknown results) Medical substance by Service) Confirmatory method ID Date Data Source [id number] 03/12/2018 12:00:00 AM EST MEDGEN [facility]) Name Value Range Interpretation Code Description Data Libra rce(s) Supporting Document(s ) ID Date Data Source [id number] 03/12/2018 12:00:00 AM EST MEDGEN ([facility] [place] [facility]) Name Value Range Interpretation Description Data Sup porting Code Source(s) Document(s ) Oxycodone 3281 Normal (applies to MEDGEN [Mass/volume] in non-numeric ([place] Serum, Plasma or results) Medical Blood by Service) Confirmatory method Oxymorphone 2401 Normal (applies to MEDGEN [Z-score] in non-numeric ([place] Urine results) Medical Service) Noroxycodone >80954 Normal (applies to MEDGEN [Mass/volume] in non-numeric ([place] Saliva (oral results) Medical fluid) by Service) Confirmatory method ID Date Data Source [id number] 03/12/2018 12:00:00 AM EST [facility] ([facility] [place] [facility]) Name Value Range Interpretation Code Description Data Libra rce(s) Supporting Document(s ) 6-Acetylmo >1000 Normal (applies to MED[facility] rphine non-numeric results) ([facility]) ID Date Data Source [id number] 03/12/2018 12:00:00 AM EST MEDGEN ([facility]) Name Value Range Interpretation Description Data Sup porting Code Source(s) Document(s ) Codeine 952 Normal (applies MEDGEN [Presence] in to non-numeric ([place] Saliva (oral results) Medical fluid) by Service) Confirmatory method Hydrocodone NEGATIVE Normal (applies MEDGEN [Z-score] in to non-numeric ([place] Urine results) Medical Service) Hydromorphone 100 Normal (applies MEDGEN [Presence] in to non-numeric ([place] Saliva (oral results) Medical fluid) by Service) Confirmatory method Morphine >27139 Normal (applies MEDGEN [Mass/mass] in to non-numeric ([place] Hair results) Medical Service) Norhydrocodone NEGATIVE Normal (applies MEDGEN [Presence] in to non-numeric ([place] Saliva (oral results) Medical fluid) by Service) Confirmatory method ID Date Data Source [id number] 03/12/2018 12:00:00 AM EST MEDGEN ([facility]) Name Value Range Interpretation Description Data Sup porting Code Source(s) Document(s ) Barbiturates NEGATIVE Normal (applies MEDGEN Screen to non-numeric ([place] results) Medical Service) ID Date Data Source [id number] 03/12/2018 12:00:00 AM EST [facility] [place] [facility]) Name Value Range Interpretation Description Data Sup porting Code Source(s) Document(s ) Alpha-Hydroxyal 363 Normal (applies MEDGEN prazolam to non-numeric ([place] results) Medical Service) 7-Aminoclonazep NEGATIVE Normal (applies MEDGEN am [Mass/mass] to non-numeric ([place] in Hair results) Medical Service) Lorazepam NEGATIVE Normal (applies MEDGEN [Moles/volume] to non-numeric ([place] in Unspecified results) Medical specimen Service) Nordiazepam NEGATIVE Normal (applies MEDGEN [Moles/volume] to non-numeric ([place] in Unspecified results) Medical specimen Service) Oxazepam 31 Normal (applies MEDGEN [Moles/volume] to non-numeric ([place] in Unspecified results) Medical specimen Service) Temazepam NEGATIVE Normal (applies MEDGEN [Moles/volume] to non-numeric ([place] in Unspecified results) Medical specimen Service) ID Date Data Source [id number] 03/12/2018 12:00:00 AM EST MEDGEN ([facility] Service) Name Value Range Interpretation Description Data Sup porting Code Source(s) Document(s ) Amphetamine NEGATIVE Normal (applies MEDGEN [Mass/mass] in to non-numeric ([place] Hair by results) Medical Confirmatory Service) method Methamphetamine NEGATIVE Normal (applies MEDGEN [Mass/mass] in to non-numeric ([place] Hair results) Medical Service) Phentermine NEGATIVE Normal (applies MEDGEN [Mass/volume] in to non-numeric ([place] [facility] Serum or Plasma by results) Medical Confirmatory Service) method ID Date Data Source [id number] 03/12/2018 12:00:00 AM EST [facility] ([facility]) Name Value Range Interpretation Description Data Sup porting Code Source(s) Document(s ) HEPATITIS NONREACTIVE Normal (applies MEDGEN A(IGM) to non-numeric ([place] results) Medical Service) ID Date Data Source [id number] 03/12/2018 12:00:00 AM EST [facility] ([facility]) Name Value Range Interpretation Code Description Data Libra rce(s) Supporting Document(s ) HEP C SEE NOTE Normal (applies to MEDGEN VIRAL RNA non-numeric ([place] PCR QUANT results) Medical Service) ID Date Data Source [id number] 03/12/2018 12:00:00 AM EST [facility] ([facility]) Name Value Range Interpretation Description Data Sup porting Code Source(s) Document(s ) ORGANISM Normal (applies MEDGEN to non-numeric ([place] results) Medical Service) Comment Normal (applies [facility]GEN [Interpretation] to non-numeric ([place] [facility] Left eye Narrative results) Medical Ophthalmometer Service) ID Date Data Source [id number] 03/12/2018 12:00:00 AM EST [facility] ([facility]) Name Value Range Interpretation Description Data Sup porting Code Source(s) Document(s ) HIV 1,2 NONREACTIVE Normal (applies MEDGEN AG/AB,4TH to non-numeric ([place] GENERATION results) Medical Service) ID Date Data Source [id number] 03/12/2018 12:00:00 AM EST [facility] ([facility]) Name Value Range Interpretation Description Data Sup porting Code Source(s) Document(s ) RPR W/RFX NONREACTIVE Normal (applies to MEDGEN TITER non-numeric ([place] results) Medical Service) ID Date Data Source [id number] 03/12/2018 12:00:00 AM EST [facility] ([facility]) Name Value Range Interpretation Description Data Sup porting Code Source(s) Document(s ) Amphetamines NEGATIVE Normal (applies MEDGEN [Presence] in to non-numeric ([place] Stool results) Medical Service) BENZODIAZEPINE POSITIVE Abnormal MEDGEN (applies to ([place] non-numeric Medical results) Service) Barbiturates NEGATIVE Normal (applies [facility]GEN [Mass/volume] in to non-numeric ([place] Serum or Plasma results) Medical Service) Methadone POSITIVE Abnormal MEDGEN [Mass/volume] in (applies to ([place] Blood non-numeric Medical results) Service) Opiates POSITIVE Abnormal MEDGEN [Presence] in (applies to ([place] Unknown substance non-numeric Medical by Confirmatory results) Service) method PCP NEGATIVE Normal (applies MEDGEN (PHENCYCLIDINE) to non-numeric ([place] results) Medical Service) Cocaine NEGATIVE Normal (applies MEDGEN [Presence] in to non-numeric ([place] Unknown substance results) Medical by Confirmatory Service) method Cannabinoids NEGATIVE Normal (applies MEDGEN [Presence] in to non-numeric ([place] Unknown substance results) Medical by Confirmatory Service) method Propoxyphene NEGATIVE Normal (applies MEDGEN [Presence] in to non-numeric ([place] Meconium by results) Medical Screen method Service) Ethanol NEGATIVE Normal (applies [facility] [Mass/volume] in to non-numeric ([facility] Urine collected results) Medical for unspecified Service) duration CREATININE,URINE 276.2 Above high MEDGEN mg/dL normal ([place] [facility] Service) ID Date Data Source [id number] 03/12/2018 12:00:00 AM EST MED[facility] ([facility]) Name Value Range Interpretation Description Data Sup porting Code Source(s) Document(s ) HEPATITIS BE NONREACTIVE Normal (applies MEDGEN AG to non-numeric ([place] results) Medical Service) ID Date Data Source [id number] 03/12/2018 12:00:00 AM EST MEDGEN ([facility]) Name Value Range Interpretation Description Data Sup porting Code Source(s) Document(s ) HEPATITIS B <3.10 Normal (applies to MEDGEN SURFACE AB (NONREACT non-numeric ([place] MONTSE) results) Medical Service) ID Date Data Source [id number] 03/12/2018 12:00:00 AM EST MEDGEN ([facility]) Name Value Range Interpretation Description Data Sup porting Code Source(s) Document(s ) HEPATITIS B REACTIVE Normal (applies to MEDGEN CORE AB QL non-numeric ([place] results) Medical Service) ID Date Data Source [id number] 03/12/2018 12:00:00 AM EST MEDGEN [facility]) Name Value Range Interpretation Description Data Sup porting Code Source(s) Document(s ) HEPATITIS C REACTIVE Normal (applies to MEDGEN AB QL non-numeric ([place] results) Medical Service) ID Date Data Source [id number] 03/12/2018 12:00:00 AM EST [facility] ([facility]) Name Value Range Interpretation Code Description Data Libra rce(s) Supporting Document(s ) HBeAB NEGATIVE Normal (applies to MEDGEN non-numeric results) ([place] [facility]) ID Date Data Source [id number] 03/12/2018 12:00:00 AM EST [facility] ([facility]) Name Value Range Interpretation Description Data Sup porting Code Source(s) Document(s ) HEPATITIS BS NONREACTIVE Normal (applies MEDGEN AG SCREEN to non-numeric ([place] results) Medical Service) ID Date Data Source [id number] 03/12/2018 12:00:00 AM EST [facility] ([facility]) Name Value Range Interpretation Description Data Sup porting Code Source(s) Document(s ) HEPATITIS A REACTIVE Normal (applies to MEDGEN AB non-numeric ([place] results) Medical Service) ID Date Data Source [id number] 03/12/2018 12:00:00 AM EST MEDGEN ([facility]) Name Value Range Interpretation Code Description Data Libra rce(s) Supporting Document(s ) T.VAGINAL NEGATIVE Normal (applies to MEDGEN IS rRNA non-numeric ([place] results) Medical Service) ID Date Data Source [id number] 03/12/2018 12:00:00 AM EST [facility] ([facility]) Name Value Range Interpretation Description Data Sup porting Code Source(s) Document(s ) CHLAMYDIA NEGATIVE Normal (applies MEDGEN TRACHOMATIS RNA to non-numeric ([place] results) Medical Service) NEISSERIA NEGATIVE Normal (applies MEDGEN GONORRHOEAE RNA to non-numeric ([place] results) Medical Service) ID Date Data Source [id number] 03/12/2018 12:00:00 AM EST [facility] ([facility]) Name Value Range Interpretation Description Data Sup porting Code Source(s) Document(s ) GLUCOSE UA NEGATIVE Normal (applies MEDGEN to non-numeric ([place] results) Medical Service) BILIRUBIN, TOTAL NEGATIVE Normal (applies [facility]GEN to non-numeric ([place] results) Medical Service) Ketones NEGATIVE Normal (applies MEDGEN [Presence] in to non-numeric ([place] Blood by Tablet results) Medical Service) Specific gravity 1.024 SG Normal (applies MEDGEN of Pericardial units to non-numeric ([place] fluid by results) Medical Refractometry Service) Blood [Presence] LARGE Normal (applies MEDGEN in Urine by to non-numeric ([place] Visual results) Medical Service) pH of Lower 5 Ph units Normal (applies MEDGEN respiratory to non-numeric ([place] specimen results) Medical Service) Protein 30 mg/dL Normal (applies MEDGEN [Mass/volume] in to non-numeric ([place] Lower results) Medical respiratory Service) specimen Urobilinogen 0-2.0 Normal (applies MEDGEN [Presence] in to non-numeric ([place] Urine by results) Medical Automated test Service) strip Nitrite NEGATIVE Normal (applies MEDGEN [Presence] in to non-numeric ([place] Urine by Test results) Medical strip Service) Leukocyte MODERATE Normal (applies MEDGEN esterase to non-numeric ([place] [Presence] in results) Medical Body fluid by Service) Automated test strip Color of PIA Normal (applies MEDGEN Peritoneal to non-numeric ([place] dialysis fluid results) Medical Service) TRANSPARENCY CLOUDY Normal (applies MEDGEN to non-numeric ([place] results) Medical Service) RBC`S >50 Above high MEDGEN normal ([place] Medical Service) WBC`S 11-20 Normal (applies MEDGEN to non-numeric ([place] results) Medical Service) SQUAMOUS FEW Normal (applies MEDGEN EPITHELIAL to non-numeric ([place] results) Medical Service) MUCOUS MODERATE Normal (applies MEDGEN to non-numeric ([place] results) Medical Service) Calcium Oxalate MOD Normal (applies MEDGEN Crystal to non-numeric ([place] results) Medical Service) ID Date Data Source [id number] 03/12/2018 12:00:00 AM EST MEDGEN ([facility] Medical Service) Name Value Range Interpretation Code Description Data Supporting Source(s) Document(s ) Methadone 3029 Normal (applies to MEDGEN [Mass/volume] non-numeric ([place] in Blood results) Medical Service) EDDP 785 Normal (applies to MEDGEN non-numeric ([place] results) Medical Service) ID Date Data Source [id number] 03/12/2018 12:00:00 AM EST [facility] ([facility]) Name Value Range Interpretation Description Data Sup porting Code Source(s) Document(s ) Propoxyphene NEGATIVE Normal (applies MEDGEN [Presence] in to non-numeric ([place] Meconium by results) Medical Screen method Service) ID Date Data Source [id number] 03/12/2018 12:00:00 AM EST MEDGEN ([facility] [place]) Name Value Range Interpretation Description Data Sup porting Code Source(s) Document(s ) Ethyl NEGATIVE Normal (applies MEDGEN glucuronide to non-numeric ([place] Screen results) Medical Service) ID Date Data Source [id number] 03/12/2018 12:00:00 AM EST MEDGEN ([facility] [place]) Name Value Range Interpretation Description Data Sup porting Code Source(s) Document(s ) Buprenorphine NEGATIVE Normal (applies MEDGEN [Presence] in to non-numeric ([place] Blood by Screen results) Medical method Service) Norbuprenorphine NEGATIVE Normal (applies MEDGEN [Mass/mass] in to non-numeric ([place] Meconium by results) Medical Confirmatory Service) method ID Date Data Source [id number] 03/12/2018 12:00:00 AM EST MEDGEN ([facility] [place]) Name Value Range Interpretation Description Data Sup porting Code Source(s) Document(s ) Cannabinoids NEGATIVE Normal (applies MEDGEN Screen to non-numeric ([place] results) Medical Service) ID Date Data Source [id number] 03/12/2018 12:00:00 AM EST MEDGEN ([facility]) Name Value Range Interpretation Description Data Sup porting Code Source(s) Document(s ) Benzoylecgonine NEGATIVE Normal (applies MEDGEN [Moles/volume] in to non-numeric ([facility] ay Unspecified results) Medical specimen Service) ID Date Data Source [id number] 03/12/2018 12:00:00 AM EST MEDGEN ([facility]) Name Value Range Interpretation Code Description Data Libra rce(s) Supporting Document(s ) MDA NEGATIVE Normal (applies to MEDGEN non-numeric results) ([place] [facility] Service) MDMA NEGATIVE Normal (applies to MEDGEN non-numeric results) ([place] [facility] Service) ID Date Data Source [id number] 03/12/2018 12:00:00 AM EST MEDGEN ([facility]) Name Value Range Interpretation Code Description Data Libra rce(s) Supporting Document(s ) ID Date Data Source [id number] 03/12/2018 12:00:00 AM EST MEDGEN ([facility]) Name Value Range Interpretation Description Data Sup porting Code Source(s) Document(s ) Phencyclidine NEGATIVE Normal (applies MEDGEN [Presence] in to non-numeric ([place] Unknown results) Medical substance by Service) Confirmatory method ID Date Data Source [id number] 03/12/2018 12:00:00 AM EST MEDGEN ([facility]) Name Value Range Interpretation Code Description Data Libra rce(s) Supporting Document(s ) ID Date Data Source [id number] 03/12/2018 12:00:00 AM EST MEDGEN ([facility]) Name Value Range Interpretation Description Data Sup porting Code Source(s) Document(s ) Oxycodone 3281 Normal (applies to MEDGEN [Mass/volume] in non-numeric ([place] Serum, Plasma or results) Medical Blood by Service) Confirmatory method Oxymorphone 2401 Normal (applies to MEDGEN [Z-score] in non-numeric ([place] Urine results) Medical Service) Noroxycodone >09393 Normal (applies to MEDGEN [Mass/volume] in non-numeric ([place] Saliva (oral results) Medical fluid) by Service) Confirmatory method ID Date Data Source [id number] 03/12/2018 12:00:00 AM EST MEDGEN [facility]) Name Value Range Interpretation Code Description Data Libra rce(s) Supporting Document(s ) 6-Acetylmo >1000 Normal (applies to MEDGEN rphine non-numeric results) ([facility] Service) ID Date Data Source [id number] 03/12/2018 12:00:00 AM EST MEDGEN [facility]) Name Value Range Interpretation Description Data Sup porting Code Source(s) Document(s ) Codeine 952 Normal (applies MEDGEN [Presence] in to non-numeric ([place] Saliva (oral results) Medical fluid) by Service) Confirmatory method Hydrocodone NEGATIVE Normal (applies MEDGEN [Z-score] in to non-numeric ([place] Urine results) Medical Service) Hydromorphone 100 Normal (applies MEDGEN [Presence] in to non-numeric ([place] Saliva (oral results) Medical fluid) by Service) Confirmatory method Morphine >69765 Normal (applies MEDGEN [Mass/mass] in to non-numeric ([place] Hair results) Medical Service) Norhydrocodone NEGATIVE Normal (applies MEDGEN [Presence] in to non-numeric ([place] Saliva (oral results) Medical fluid) by Service) Confirmatory method ID Date Data Source [id number] 03/12/2018 12:00:00 AM EST [facility] ([facility]) Name Value Range Interpretation Description Data Sup porting Code Source(s) Document(s ) Barbiturates NEGATIVE Normal (applies MEDGEN Screen to non-numeric ([place] results) Medical Service) ID Date Data Source [id number] 03/12/2018 12:00:00 AM EST MEDGEN ([facility] Medical Service) Name Value Range Interpretation Description Data Sup porting Code Source(s) Document(s ) Alpha-Hydroxyal 363 Normal (applies MEDGEN prazolam to non-numeric ([place] results) Medical Service) 7-Aminoclonazep NEGATIVE Normal (applies MEDGEN am [Mass/mass] to non-numeric ([place] in Hair results) Medical Service) Lorazepam NEGATIVE Normal (applies MEDGEN [Moles/volume] to non-numeric ([place] in Unspecified results) Medical specimen Service) Nordiazepam NEGATIVE Normal (applies MEDGEN [Moles/volume] to non-numeric ([place] in Unspecified results) Medical specimen Service) Oxazepam 31 Normal (applies MEDGEN [Moles/volume] to non-numeric ([place] in Unspecified results) Medical specimen Service) Temazepam NEGATIVE Normal (applies MEDGEN [Moles/volume] to non-numeric ([place] in Unspecified results) Medical specimen Service) ID Date Data Source [id number] 03/12/2018 12:00:00 AM EST MEDGEN ([facility] Service) Name Value Range Interpretation Code Description Data Supporting Source(s) Document(s ) Methadone 3029 Normal (applies to MEDGEN [Mass/volume] non-numeric ([place] in Blood results) Medical Service) EDDP 785 Normal (applies to MEDGEN non-numeric ([place] results) Medical Service) ID Date Data Source [id number] 03/12/2018 12:00:00 AM EST MEDGEN ([facility] Medical Service) Name Value Range Interpretation Description Data Sup porting Code Source(s) Document(s ) Propoxyphene NEGATIVE Normal (applies MEDGEN [Presence] in to non-numeric ([place] Meconium by results) Medical Screen method Service) ID Date Data Source [id number] 03/12/2018 12:00:00 AM EST MEDGEN ([facility]) Name Value Range Interpretation Description Data Sup porting Code Source(s) Document(s ) Ethyl NEGATIVE Normal (applies MEDGEN glucuronide to non-numeric ([place] Screen results) Medical Service) ID Date Data Source [id number] 03/12/2018 12:00:00 AM EST MEDGEN ([facility]) Name Value Range Interpretation Description Data Sup porting Code Source(s) Document(s ) Buprenorphine NEGATIVE Normal (applies MEDGEN [Presence] in to non-numeric ([place] Blood by Screen results) Medical method Service) Norbuprenorphine NEGATIVE Normal (applies MEDGEN [Mass/mass] in to non-numeric ([place] Meconium by results) Medical Confirmatory Service) method ID Date Data Source [id number] 03/12/2018 12:00:00 AM EST MEDGEN ([facility]) Name Value Range Interpretation Description Data Sup porting Code Source(s) Document(s ) Cannabinoids NEGATIVE Normal (applies MEDGEN Screen to non-numeric ([place] results) Medical Service) ID Date Data Source [id number] 03/12/2018 12:00:00 AM EST MEDGEN ([facility]) Name Value Range Interpretation Description Data Sup porting Code Source(s) Document(s ) Benzoylecgonine NEGATIVE Normal (applies MEDGEN [Moles/volume] in to non-numeric ([facility] Unspecified results) Medical specimen Service) ID Date Data Source [id number] 03/12/2018 12:00:00 AM EST MEDGEN ([facility]) Name Value Range Interpretation Code Description Data Lbira rce(s) Supporting Document(s ) MDA NEGATIVE Normal (applies to MEDGEN non-numeric results) ([place] [facility] Service) MDMA NEGATIVE Normal (applies to MEDGEN non-numeric results) ([place] [facility] Service) ID Date Data Source [id number] 03/12/2018 12:00:00 AM EST MEDGEN ([facility] [place]) Name Value Range Interpretation Code Description Data Libra rce(s) Supporting Document(s ) ID Date Data Source [id number] 03/12/2018 12:00:00 AM EST MEDGEN ([facility]) Name Value Range Interpretation Description Data Sup porting Code Source(s) Document(s ) Phencyclidine NEGATIVE Normal (applies MEDGEN [Presence] in to non-numeric ([place] Unknown results) Medical substance by Service) Confirmatory method ID Date Data Source [id number] 03/12/2018 12:00:00 AM EST MEDGEN ([facility]) Name Value Range Interpretation Code Description Data Libra rce(s) Supporting Document(s ) ID Date Data Source [id number] 03/12/2018 12:00:00 AM EST MEDGEN ([facility]) Name Value Range Interpretation Description Data Sup porting Code Source(s) Document(s ) Oxycodone 3281 Normal (applies to MEDGEN [Mass/volume] in non-numeric ([place] Serum, Plasma or results) Medical Blood by Service) Confirmatory method Oxymorphone 2401 Normal (applies to MEDGEN [Z-score] in non-numeric ([place] Urine results) Medical Service) Noroxycodone >33173 Normal (applies to MEDGEN [Mass/volume] in non-numeric ([place] Saliva (oral results) Medical fluid) by Service) Confirmatory method ID Date Data Source [id number] 03/12/2018 12:00:00 AM EST MEDGEN [facility]) Name Value Range Interpretation Code Description Data Libra rce(s) Supporting Document(s ) 6-Acetylmo >1000 Normal (applies to MEDGEN rphine non-numeric results) ([facility]) ID Date Data Source [id number] 03/12/2018 12:00:00 AM EST MEDGEN [facility]) Name Value Range Interpretation Description Data Sup porting Code Source(s) Document(s ) Codeine 952 Normal (applies MEDGEN [Presence] in to non-numeric ([place] Saliva (oral results) Medical fluid) by Service) Confirmatory method Hydrocodone NEGATIVE Normal (applies MEDGEN [Z-score] in to non-numeric ([place] Urine results) Medical Service) Hydromorphone 100 Normal (applies MEDGEN [Presence] in to non-numeric ([place] Saliva (oral results) Medical fluid) by Service) Confirmatory method Morphine >44124 Normal (applies MEDGEN [Mass/mass] in to non-numeric ([place] Hair results) Medical Service) Norhydrocodone NEGATIVE Normal (applies MEDGEN [Presence] in to non-numeric ([place] Saliva (oral results) Medical fluid) by Service) Confirmatory method ID Date Data Source [id number] 03/12/2018 12:00:00 AM EST [facility]) Name Value Range Interpretation Description Data Sup porting Code Source(s) Document(s ) Barbiturates NEGATIVE Normal (applies MEDGEN Screen to non-numeric ([place] results) Medical Service) ID Date Data Source [id number] 03/12/2018 12:00:00 AM EST [facility] ([facility]) Name Value Range Interpretation Description Data Sup porting Code Source(s) Document(s ) Alpha-Hydroxyal 363 Normal (applies MEDGEN prazolam to non-numeric ([place] results) Medical Service) 7-Aminoclonazep NEGATIVE Normal (applies MEDGEN am [Mass/mass] to non-numeric ([place] in Hair results) Medical Service) Lorazepam NEGATIVE Normal (applies MEDGEN [Moles/volume] to non-numeric ([place] in Unspecified results) Medical specimen Service) Nordiazepam NEGATIVE Normal (applies MEDGEN [Moles/volume] to non-numeric ([place] in Unspecified results) Medical specimen Service) Oxazepam 31 Normal (applies MEDGEN [Moles/volume] to non-numeric ([place] in Unspecified results) Medical specimen Service) Temazepam NEGATIVE Normal (applies MEDGEN [Moles/volume] to non-numeric ([place] in Unspecified results) Medical specimen Service) ID Date Data Source [id number] 03/12/2018 12:00:00 AM EST [facility] ([facility]) Name Value Range Interpretation Code Description Data Supporting Source(s) Document(s ) Methadone 3029 Normal (applies to MEDGEN [Mass/volume] non-numeric ([place] in Blood results) Medical Service) EDDP 785 Normal (applies to MEDGEN non-numeric ([place] results) Medical Service) ID Date Data Source [id number] 03/12/2018 12:00:00 AM EST [facility] ([facility]) Name Value Range Interpretation Description Data Sup porting Code Source(s) Document(s ) Propoxyphene NEGATIVE Normal (applies MEDGEN [Presence] in to non-numeric ([place] Meconium by results) Medical Screen method Service) ID Date Data Source [id number] 03/12/2018 12:00:00 AM EST [facility] ([facility]) Name Value Range Interpretation Description Data Sup porting Code Source(s) Document(s ) Ethyl NEGATIVE Normal (applies MEDGEN glucuronide to non-numeric ([place] Screen results) Medical Service) ID Date Data Source [id number] 03/12/2018 12:00:00 AM EST MEDGEN ([facility] Service) Name Value Range Interpretation Description Data Sup porting Code Source(s) Document(s ) Buprenorphine NEGATIVE Normal (applies MEDGEN [Presence] in to non-numeric ([place] Blood by Screen results) Medical method Service) Norbuprenorphine NEGATIVE Normal (applies MEDGEN [Mass/mass] in to non-numeric ([place] Meconium by results) Medical Confirmatory Service) method ID Date Data Source [id number] 03/12/2018 12:00:00 AM EST MEDGEN ([facility] Service) Name Value Range Interpretation Description Data Sup porting Code Source(s) Document(s ) Cannabinoids NEGATIVE Normal (applies MEDGEN Screen to non-numeric ([place] results) Medical Service) ID Date Data Source [id number] 03/12/2018 12:00:00 AM EST MEDGEN ([facility] Service) Name Value Range Interpretation Description Data Sup porting Code Source(s) Document(s ) Benzoylecgonine NEGATIVE Normal (applies MEDGEN [Moles/volume] in to non-numeric ([facility] Unspecified results) Medical specimen Service) ID Date Data Source [id number] 03/12/2018 12:00:00 AM EST MEDGEN ([facility] Service) Name Value Range Interpretation Description Data Sup porting Code Source(s) Document(s ) Amphetamine NEGATIVE Normal (applies MEDGEN [Mass/mass] in to non-numeric ([place] Hair by results) Medical Confirmatory Service) method Methamphetamine NEGATIVE Normal (applies MEDGEN [Mass/mass] in to non-numeric ([place] Hair results) Medical Service) Phentermine NEGATIVE Normal (applies MEDGEN [Mass/volume] in to non-numeric ([place] [facility] Serum or Plasma by results) Medical Confirmatory Service) method ID Date Data Source [id number] 03/12/2018 12:00:00 AM EST [facility] ([facility]) Name Value Range Interpretation Description Data Sup porting Code Source(s) Document(s ) HEPATITIS NONREACTIVE Normal (applies MEDGEN A(IGM) to non-numeric ([place] results) Medical Service) ID Date Data Source [id number] 03/12/2018 12:00:00 AM EST MEDGEN ([facility] Service) Name Value Range Interpretation Code Description Data Libra rce(s) Supporting Document(s ) HEP C SEE NOTE Normal (applies to MEDGEN VIRAL RNA non-numeric ([place] PCR QUANT results) Medical Service) ID Date Data Source [id number] 03/12/2018 12:00:00 AM EST [facility] ([facility]) Name Value Range Interpretation Code Description Data Libra rce(s) Supporting Document(s ) ID Date Data Source [id number] 03/12/2018 12:00:00 AM EST MEDGEN ([facility]) Name Value Range Interpretation Description Data Sup porting Code Source(s) Document(s ) HIV 1,2 NONREACTIVE Normal (applies MEDGEN AG/AB,4TH to non-numeric ([place] GENERATION results) Medical Service) ID Date Data Source [id number] 03/12/2018 12:00:00 AM EST MEDGEN ([facility]) Name Value Range Interpretation Description Data Sup porting Code Source(s) Document(s ) RPR W/RFX NONREACTIVE Normal (applies to MEDGEN TITER non-numeric ([place] results) Medical Service) ID Date Data Source [id number] 03/12/2018 12:00:00 AM EST MEDGEN ([facility]) Name Value Range Interpretation Description Data Sup porting Code Source(s) Document(s ) Amphetamines NEGATIVE Normal (applies MEDGEN [Presence] in to non-numeric ([place] Stool results) Medical Service) BENZODIAZEPINE POSITIVE Abnormal MEDGEN (applies to ([place] non-numeric Medical results) Service) Barbiturates NEGATIVE Normal (applies MEDGEN [Mass/volume] in to non-numeric ([facility] Serum or Plasma results) Medical Service) Opiates POSITIVE Abnormal MEDGEN [Presence] in (applies to ([place] Unknown substance non-numeric Medical by Confirmatory results) Service) method Methadone POSITIVE Abnormal MEDGEN [Mass/volume] in (applies to ([place] Blood non-numeric Medical results) Service) PCP NEGATIVE Normal (applies MEDGEN (PHENCYCLIDINE) to non-numeric ([place] results) Medical Service) Cocaine NEGATIVE Normal (applies MEDGEN [Presence] in to non-numeric ([place] Unknown substance results) Medical by Confirmatory Service) method Cannabinoids NEGATIVE Normal (applies MEDGEN [Presence] in to non-numeric ([place] Unknown substance results) Medical by Confirmatory Service) method Propoxyphene NEGATIVE Normal (applies MEDGEN [Presence] in to non-numeric ([place] Meconium by results) Medical Screen method Service) Ethanol NEGATIVE Normal (applies MEDGEN [Mass/volume] in to non-numeric ([place] Urine collected results) Medical for unspecified Service) duration CREATININE,URINE 276.2 Above high MEDGEN mg/dL normal ([place] [facility]) ID Date Data Source [id number] 03/12/2018 12:00:00 AM EST MEDGEN ([facility]) Name Value Range Interpretation Description Data Sup porting Code Source(s) Document(s ) HEPATITIS BE NONREACTIVE Normal (applies MEDGEN AG to non-numeric ([place] results) Medical Service) ID Date Data Source [id number] 03/12/2018 12:00:00 AM EST [facility] ([facility]) Name Value Range Interpretation Description Data Sup porting Code Source(s) Document(s ) HEPATITIS B <3.10 Normal (applies to MEDGEN SURFACE AB (NONREACT non-numeric ([place] MONTSE) results) Medical Service) ID Date Data Source [id number] 03/12/2018 12:00:00 AM EST MEDGEN ([facility]) Name Value Range Interpretation Description Data Sup porting Code Source(s) Document(s ) HEPATITIS B REACTIVE Normal (applies to MEDGEN CORE AB QL non-numeric ([place] results) Medical Service) ID Date Data Source [id number] 03/12/2018 12:00:00 AM EST MEDGEN ([facility]) Name Value Range Interpretation Description Data Sup porting Code Source(s) Document(s ) HEPATITIS C REACTIVE Normal (applies to MEDGEN AB QL non-numeric ([place] results) Medical Service) ID Date Data Source [id number] 03/12/2018 12:00:00 AM EST MED[facility] ([facility]) Name Value Range Interpretation Code Description Data Libra rce(s) Supporting Document(s ) HBeAB NEGATIVE Normal (applies to MEDGEN non-numeric results) ([place]) ID Date Data Source [id number] 03/12/2018 12:00:00 AM EST MED[facility] ([facility]) Name Value Range Interpretation Description Data Sup porting Code Source(s) Document(s ) HEPATITIS BS NONREACTIVE Normal (applies MEDGEN AG SCREEN to non-numeric ([place] results) Medical Service) ID Date Data Source [id number] 03/12/2018 12:00:00 AM EST MED[facility] ([facility]) Name Value Range Interpretation Description Data Sup porting Code Source(s) Document(s ) HEPATITIS A REACTIVE Normal (applies to MEDGEN AB non-numeric ([place] results) Medical Service) ID Date Data Source [id number] 03/12/2018 12:00:00 AM EST [facility] ([facility]) Name Value Range Interpretation Code Description Data Libra rce(s) Supporting Document(s ) T.VAGINAL NEGATIVE Normal (applies to MEDGEN IS rRNA non-numeric ([place] results) Medical Service) ID Date Data Source [id number] 03/12/2018 12:00:00 AM EST MEDGEN ([facility]) Name Value Range Interpretation Description Data Sup porting Code Source(s) Document(s ) CHLAMYDIA NEGATIVE Normal (applies MEDGEN TRACHOMATIS RNA to non-numeric ([place] results) Medical Service) NEISSERIA NEGATIVE Normal (applies MEDGEN GONORRHOEAE RNA to non-numeric ([place] results) Medical Service) ID Date Data Source [id number] 03/12/2018 12:00:00 AM EST MEDGEN ([facility]) Name Value Range Interpretation Description Data Sup porting Code Source(s) Document(s ) GLUCOSE UA NEGATIVE Normal (applies MEDGEN to non-numeric ([place] results) Medical Service) BILIRUBIN, TOTAL NEGATIVE Normal (applies MEDGEN to non-numeric ([place] results) Medical Service) Ketones NEGATIVE Normal (applies MEDGEN [Presence] in to non-numeric ([place] Blood by Tablet results) Medical Service) Specific gravity 1.024 SG Normal (applies MEDGEN of Pericardial units to non-numeric ([place] fluid by results) Medical Refractometry Service) pH of Lower 5 Ph units Normal (applies MEDGEN respiratory to non-numeric ([place] specimen results) Medical Service) Blood [Presence] LARGE Normal (applies MEDGEN in Urine by to non-numeric ([place] Visual results) Medical Service) Protein 30 mg/dL Normal (applies MEDGEN [Mass/volume] in to non-numeric ([place] [facility] Lower results) Medical respiratory Service) specimen Urobilinogen 0-2.0 Normal (applies MEDGEN [Presence] in to non-numeric ([place] Urine by results) Medical Automated test Service) strip Nitrite NEGATIVE Normal (applies MEDGEN [Presence] in to non-numeric ([place] Urine by Test results) Medical strip Service) Leukocyte MODERATE Normal (applies MEDGEN esterase to non-numeric ([place] [Presence] in results) Medical Body fluid by Service) Automated test strip Color of PIA Normal (applies MEDGEN Peritoneal to non-numeric ([place] dialysis fluid results) Medical Service) RBC`S >50 Above high MEDGEN normal ([place] [facility] Service) TRANSPARENCY CLOUDY Normal (applies MEDGEN to non-numeric ([place] results) Medical Service) WBC`S 11-20 Normal (applies MEDGEN to non-numeric ([place] results) Medical Service) SQUAMOUS FEW Normal (applies MEDGEN EPITHELIAL to non-numeric ([place] results) Medical Service) MUCOUS MODERATE Normal (applies MEDGEN to non-numeric ([place] results) Medical Service) Calcium Oxalate MOD Normal (applies MEDGEN Crystal to non-numeric ([place] results) Medical Service) ID Date Data Source [id number] 03/12/2018 12:00:00 AM EST [facility] ([facility]) Name Value Range Interpretation Description Data Sup porting Code Source(s) Document(s ) Amphetamine NEGATIVE Normal (applies MEDGEN [Mass/mass] in to non-numeric ([place] Hair by results) Medical Confirmatory Service) method Methamphetamine NEGATIVE Normal (applies MEDGEN [Mass/mass] in to non-numeric ([place] Hair results) Medical Service) Phentermine NEGATIVE Normal (applies [facility] [Mass/volume] in to non-numeric ([place] [facility] Serum or Plasma by results) Medical Confirmatory Service) method ID Date Data Source [id number] 03/12/2018 12:00:00 AM EST [facility] ([facility]) Name Value Range Interpretation Description Data Sup porting Code Source(s) Document(s ) HEPATITIS NONREACTIVE Normal (applies MEDGEN A(IGM) to non-numeric ([place] results) Medical Service) ID Date Data Source [id number] 03/12/2018 12:00:00 AM EST [facility] ([facility]) Name Value Range Interpretation Code Description Data Libra rce(s) Supporting Document(s ) HEP C SEE NOTE Normal (applies to MEDGEN VIRAL RNA non-numeric ([place] PCR QUANT results) Medical Service) ID Date Data Source [id number] 03/12/2018 12:00:00 AM EST [facility] ([facility]) Name Value Range Interpretation Description Data Sup porting Code Source(s) Document(s ) ORGANISM Normal (applies MEDGEN to non-numeric ([place] results) Medical Service) Comment Normal (applies MED[facility] [Interpretation] to non-numeric ([place] [facility] Left eye Narrative results) Medical Ophthalmometer Service) ID Date Data Source [id number] 03/12/2018 12:00:00 AM EST [facility] ([facility]) Name Value Range Interpretation Description Data Sup porting Code Source(s) Document(s ) HIV 1,2 NONREACTIVE Normal (applies MEDGEN AG/AB,4TH to non-numeric ([place] GENERATION results) Medical Service) ID Date Data Source [id number] 03/12/2018 12:00:00 AM EST [facility] ([facility]) Name Value Range Interpretation Description Data Sup porting Code Source(s) Document(s ) RPR W/RFX NONREACTIVE Normal (applies to MEDGEN TITER non-numeric ([place] results) Medical Service) ID Date Data Source [id number] 03/12/2018 12:00:00 AM EST MEDGEN ([facility]) Name Value Range Interpretation Description Data Sup porting Code Source(s) Document(s ) Amphetamines NEGATIVE Normal (applies MEDGEN [Presence] in to non-numeric ([place] Stool results) Medical Service) BENZODIAZEPINE POSITIVE Abnormal MEDGEN (applies to ([place] non-numeric Medical results) Service) Barbiturates NEGATIVE Normal (applies [facility] [Mass/volume] in to non-[facility] Service) Methadone POSITIVE Abnormal MEDGEN [Mass/volume] in (applies to ([place] Blood non-numeric Medical results) Service) Opiates POSITIVE Abnormal MEDGEN [Presence] in (applies to ([place] Unknown substance non-numeric Medical by Confirmatory results) Service) method PCP NEGATIVE Normal (applies MEDGEN (PHENCYCLIDINE) to non-numeric ([place] results) Medical Service) Cocaine NEGATIVE Normal (applies MEDGEN [Presence] in to non-numeric ([place] Unknown substance results) Medical by Confirmatory Service) method Cannabinoids NEGATIVE Normal (applies MEDGEN [Presence] in to non-numeric ([place] Unknown substance results) Medical by Confirmatory Service) method Propoxyphene NEGATIVE Normal (applies MEDGEN [Presence] in to non-numeric ([place] Meconium by results) Medical Screen method Service) Ethanol NEGATIVE Normal (applies MEDGEN [Mass/volume] in to non-numeric [facility] Medical for unspecified Service) duration CREATININE,URINE 276.2 Above high MEDGEN mg/dL normal ([place] [facility]) ID Date Data Source [id number] 03/12/2018 12:00:00 AM EST MED[facility] ([facility]) Name Value Range Interpretation Description Data Sup porting Code Source(s) Document(s ) HEPATITIS BE NONREACTIVE Normal (applies MEDGEN AG to non-numeric ([place] results) Medical Service) ID Date Data Source [id number] 03/12/2018 12:00:00 AM EST MED[facility] ([facility]) Name Value Range Interpretation Description Data Sup porting Code Source(s) Document(s ) HEPATITIS B <3.10 Normal (applies to MEDGEN SURFACE AB (NONREACT non-numeric ([place] MONTSE) results) Medical Service) ID Date Data Source [id number] 03/12/2018 12:00:00 AM EST MED[facility] ([facility]) Name Value Range Interpretation Description Data Sup porting Code Source(s) Document(s ) HEPATITIS B REACTIVE Normal (applies to MEDGEN CORE AB QL non-numeric ([place] results) Medical Service) ID Date Data Source [id number] 03/12/2018 12:00:00 AM EST MED[facility] ([facility]) Name Value Range Interpretation Description Data Sup porting Code Source(s) Document(s ) HEPATITIS C REACTIVE Normal (applies to MEDGEN AB QL non-numeric ([place] results) Medical Service) ID Date Data Source [id number] 03/12/2018 12:00:00 AM EST MEDGEN ([facility]) Name Value Range Interpretation Code Description Data Libra rce(s) Supporting Document(s ) HBeAB NEGATIVE Normal (applies to MEDGEN non-numeric results) ([place] [facility]) ID Date Data Source [id number] 03/12/2018 12:00:00 AM EST MEDGEN ([facility]) Name Value Range Interpretation Description Data Sup porting Code Source(s) Document(s ) HEPATITIS BS NONREACTIVE Normal (applies MEDGEN AG SCREEN to non-numeric ([place] results) Medical Service) ID Date Data Source [id number] 03/12/2018 12:00:00 AM EST MEDGEN ([facility]) Name Value Range Interpretation Description Data Sup porting Code Source(s) Document(s ) HEPATITIS A REACTIVE Normal (applies to MEDGEN AB non-numeric ([place] results) Medical Service) ID Date Data Source [id number] 03/12/2018 12:00:00 AM EST MEDGEN ([facility]) Name Value Range Interpretation Code Description Data Libra rce(s) Supporting Document(s ) T.VAGINAL NEGATIVE Normal (applies to MEDGEN IS rRNA non-numeric ([place] results) Medical Service) ID Date Data Source [id number] 03/12/2018 12:00:00 AM EST [facility]GEN ([facility]) Name Value Range Interpretation Description Data Sup porting Code Source(s) Document(s ) CHLAMYDIA NEGATIVE Normal (applies MEDGEN TRACHOMATIS RNA to non-numeric ([place] results) Medical Service) NEISSERIA NEGATIVE Normal (applies MEDGEN GONORRHOEAE RNA to non-numeric ([place] results) Medical Service) ID Date Data Source [id number] 03/12/2018 12:00:00 AM EST MEDGEN ([facility]) Name Value Range Interpretation Description Data Sup porting Code Source(s) Document(s ) GLUCOSE UA NEGATIVE Normal (applies MEDGEN to non-numeric ([place] results) Medical Service) BILIRUBIN, TOTAL NEGATIVE Normal (applies MEDGEN to non-numeric ([place] results) Medical Service) Ketones NEGATIVE Normal (applies MEDGEN [Presence] in to non-numeric ([place] Blood by Tablet results) Medical Service) Specific gravity 1.024 SG Normal (applies MEDGEN of Pericardial units to non-numeric ([place] fluid by results) Medical Refractometry Service) Blood [Presence] LARGE Normal (applies MEDGEN in Urine by to non-numeric ([place] Visual results) Medical Service) pH of Lower 5 Ph units Normal (applies MEDGEN respiratory to non-numeric ([place] specimen results) Medical Service) Protein 30 mg/dL Normal (applies MEDGEN [Mass/volume] in to non-numeric [facility] Medical respiratory Service) specimen Urobilinogen 0-2.0 Normal (applies MEDGEN [Presence] in to non-numeric ([place] Urine by results) Medical Automated test Service) strip Nitrite NEGATIVE Normal (applies MEDGEN [Presence] in to non-numeric ([place] Urine by Test results) Medical strip Service) Leukocyte MODERATE Normal (applies MEDGEN esterase to non-numeric ([place] [Presence] in results) Medical Body fluid by Service) Automated test strip Color of PIA Normal (applies MEDGEN Peritoneal to non-numeric ([place] dialysis fluid results) Medical Service) TRANSPARENCY CLOUDY Normal (applies MEDGEN to non-numeric ([place] results) Medical Service) RBC`S >50 Above high MEDGEN normal ([place] [facility] Service) WBC`S 11-20 Normal (applies MEDGEN to non-numeric ([place] results) Medical Service) SQUAMOUS FEW Normal (applies MEDGEN EPITHELIAL to non-numeric ([place] results) Medical Service) MUCOUS MODERATE Normal (applies MEDGEN to non-numeric ([place] results) Medical Service) Calcium Oxalate MOD Normal (applies MEDGEN Crystal to non-numeric ([place] results) Medical Service) ID Date Data Source [id number] 02/03/2018 12:00:00 AM EDT MEDGEN ([facility]) Name Value Range Interpretation Description Data Sup porting Code Source(s) Document(s ) VITAMIN D 23.19 Below low normal MEDGEN 25-HYDROXY ng/mL ([place] [facility]) ID Date Data Source [id number] 02/03/2018 12:00:00 AM EDT MED[facility] ([facility]) Name Value Range Interpretation Description Data Sup porting Code Source(s) Document(s ) VITAMIN B12 639 pg/mL Normal (applies to MEDGEN non-numeric ([place] results) Medical Service) ID Date Data Source [id number] 02/03/2018 12:00:00 AM EDT MEDGEN ([facility]) Name Value Range Interpretation Description Data Sup porting Code Source(s) Document(s ) FOLATE 17.5 ng/mL Above high normal MEDGEN SERUM ([place] [facility]) ID Date Data Source [id number] 02/03/2018 12:00:00 AM EDT MEDGEN ([facility]) Name Value Range Interpretation Description Data Sup porting Code Source(s) Document(s ) Cholesterol 117 Normal (applies MEDGEN [Moles/volume] mg/dL to non-numeric ([place] in Pericardial results) Medical fluid Service) LDL CALCULATION 61.8 Normal (applies MEDGEN mg/dL to non-numeric ([place] results) Medical Service) CHOL/HDL RATIO 3.08 Normal (applies MEDGEN ratio to non-numeric ([place] results) Medical Service) HDL CHOLESTEROL 38 mg/dL Above high normal MEDGEN ([place] [facility]) VLDL CALCULATION 17.2 Normal (applies MEDGEN mg/dl to non-numeric ([place] results) Medical Service) TRIGLYCERIDES 86 mg/dL Normal (applies MEDGEN to non-numeric ([place] results) Medical Service) ID Date Data Source [id number] 02/03/2018 12:00:00 AM EDT MEDGEN ([facility]) Name Value Range Interpretation Description Data Sup porting Code Source(s) Document(s ) GLUCOSE 96 mg/dL Normal (applies MEDGEN NONFASTING,SERUM to non-numeric ([place] [facility] results) Medical Service) SODIUM, SERUM 142 Normal (applies MEDGEN mEq/L to non-numeric ([place] results) Medical Service) POTASSIUM, SERUM 4.2 Normal (applies MEDGEN mEq/L to non-numeric ([place] results) Medical Service) CHLORIDE, SERUM 111 Above high normal MEDGEN mEq/L ([place] [facility]) Carbon dioxide 23 mEq/L Normal (applies MEDGEN [VFr/PPres] in to non-numeric ([place] Gas delivery results) Medical system Service) Anion gap in 12.2 Normal (applies MEDGEN Body fluid mEq/L to non-numeric ([place] results) Medical Service) BLOOD UREA 19 mg/dL Normal (applies MEDGEN NITROGEN to non-numeric ([place] results) Medical Service) CREATININE, 1.00 Normal (applies MEDGEN SERUM mg/dL to non-numeric ([place] results) Medical Service) CALCIUM, SERUM 8.6 Normal (applies MEDGEN mg/dL to non-numeric ([place] results) Medical Service) TOTAL PROTEIN 6.6 g/dL Normal (applies MEDGEN to non-numeric ([place] results) Medical Service) Microalbumin 4.1 g/dL Normal (applies MEDGEN [Mass/time] in to non-numeric ([place] Urine collected results) Medical for unspecified Service) duration Globulin 2.5 gldl Normal (applies MEDGEN [Mass/time] in to non-numeric ([place] 24 hour Urine results) Medical Service) A/G RATIO 1.64 Normal (applies MEDGEN g/dl to non-numeric ([place] results) Medical Service) BILIRUBIN, TOTAL 0.5 Normal (applies MEDGEN mg/dL to non-numeric ([place] results) Medical Service) ALKALINE 94 U/L Normal (applies MEDGEN PHOSPHATASE, ALP to non-numeric ([facility] y results) Medical Service) ALT (SGPT) 44 U/L Normal (applies MEDGEN to non-numeric ([place] results) Medical Service) AST 31 U/L Normal (applies MEDGEN to non-numeric ([place] results) Medical Service) EGFR NON AFR 81 Above high normal MEDGEN ICELANDIC mL/min/1 ([place] .73m2 Medical Service) EGFR AFR 98 Above high normal MEDGEN ICELANDIC mL/min/1 ([place] .73m2 Medical Service) ID Date Data Source [id number] 02/03/2018 12:00:00 AM EDT [facility] ([facility]) Name Value Range Interpretation Description Data Sup porting Code Source(s) Document(s ) WBC 8.4 Normal (applies to MEDGEN 10(3)/uL non-numeric ([place] results) Medical Service) RBC 5.5 Normal (applies to MEDGEN 10(6)/uL non-numeric ([place] results) Medical Service) Hemoglobin 16.7 g/dL Normal (applies to MEDGEN [Mass/volume] non-numeric ([place] in Mixed results) Medical venous blood Service) by Oximetry Hematocrit 47.6 % Normal (applies to MEDGEN [Pure volume non-numeric ([place] fraction] of results) Medical Blood by Service) Automated count MCV 86.9 fL Normal (applies to MEDGEN non-numeric ([place] results) Medical Service) MCH 31 pg Normal (applies to MEDGEN non-numeric ([place] results) Medical Service) MCHC 35 g/dL Normal (applies to MEDGEN non-numeric ([place] results) Medical Service) RDWSD 43.5 fL Normal (applies to MEDGEN non-numeric ([place] results) Medical Service) RDWCV 13.6 % Normal (applies to MEDGEN non-numeric ([place] results) Medical Service) PLT 116 Below low normal MEDGEN 10(3)/uL ([place] [facility]) MPV 12.0 fL Normal (applies to MEDGEN non-numeric ([place] results) Medical Service) NE# 4.06 Normal (applies to MEDGEN 10(3)/uL non-numeric ([place] results) Medical Service) LY# 3.47 Normal (applies to MEDGEN 10(3)/uL non-numeric ([place] results) Medical Service) MO# 0.54 Normal (applies to MEDGEN 10(3)/uL non-numeric ([place] results) Medical Service) IG# 0.05 Above high normal MEDGEN 10(3)/uL ([place] [facility]) NE% 48.20 % Normal (applies to MEDGEN non-numeric ([place] results) Medical Service) LY% 41 % Normal (applies to MEDGEN non-numeric ([place] results) Medical Service) MO% 6.4 % Normal (applies to MEDGEN non-numeric ([place] results) Medical Service) EO% 3.1 % Normal (applies to MEDGEN non-numeric ([place] results) Medical Service) BA% 0.5 % Normal (applies to MEDGEN non-numeric ([place] results) Medical Service) IG% 0.60 % Above high normal MEDGEN ([place] [facility]) ID Date Data Source [id number] 02/03/2018 12:00:00 AM EDT MEDGEN ([facility]) Name Value Range Interpretation Code Description Data Supporting Source(s) Document(s ) GLYCOMARK 14.52 Normal (applies to MEDGEN ug/mL non-numeric ([place] results) Medical Service) ID Date Data Source [id number] 02/03/2018 12:00:00 AM EDT [facility] ([facility]) Name Value Range Interpretation Description Data Sup porting Code Source(s) Document(s ) Hemoglobin A1c 5.7 % Above high normal MEDGEN in Blood ([facility]) ID Date Data Source [id number] 02/03/2018 12:00:00 AM EDT [facility] ([facility]) Name Value Range Interpretation Code Description Data Libra rce(s) Supporting Document(s ) EO# 0.26 Normal (applies to MEDGEN 10(3)/uL non-numeric results) ([facility]) ID Date Data Source [id number] 02/03/2018 12:00:00 AM EDT [facility] ([facility]) Name Value Range Interpretation Description Data Sup porting Code Source(s) Document(s ) TSH,3RD 1.00 Normal (applies to MEDGEN GENERATION uIU/mL non-numeric ([place] results) Medical Service) T4 TOTAL 9.5 ug/dL Normal (applies to MEDGEN THYROXINE non-numeric ([place] results) Medical Service) T3 TOTAL 109 ng/dL Normal (applies to MEDGEN non-numeric ([place] results) Medical Service) ID Date Data Source [id number] 02/03/2018 12:00:00 AM EDT [facility] ([facility]) Name Value Range Interpretation Description Data Sup porting Code Source(s) Document(s ) VITAMIN D 23.19 Below low normal MEDGEN 25-HYDROXY ng/mL ([facility]) ID Date Data Source [id number] 02/03/2018 12:00:00 AM EDT [facility] ([facility]) Name Value Range Interpretation Description Data Sup porting Code Source(s) Document(s ) VITAMIN B12 639 pg/mL Normal (applies to MEDGEN non-numeric ([place] results) Medical Service) ID Date Data Source [id number] 02/03/2018 12:00:00 AM EDT MEDGEN ([facility]) Name Value Range Interpretation Description Data Sup porting Code Source(s) Document(s ) FOLATE 17.5 ng/mL Above high normal MEDGEN SERUM ([facility]) ID Date Data Source [id number] 02/03/2018 12:00:00 AM EDT MEDGEN ([facility]) Name Value Range Interpretation Description Data Sup porting Code Source(s) Document(s ) Cholesterol 117 Normal (applies MEDGEN [Moles/volume] mg/dL to non-numeric ([place] in Pericardial results) Medical fluid Service) LDL CALCULATION 61.8 Normal (applies MEDGEN mg/dL to non-numeric ([place] results) Medical Service) CHOL/HDL RATIO 3.08 Normal (applies MEDGEN ratio to non-numeric ([place] results) Medical Service) HDL CHOLESTEROL 38 mg/dL Above high normal MEDGEN ([facility]) VLDL CALCULATION 17.2 Normal (applies MEDGEN mg/dl to non-numeric ([place] results) Medical Service) TRIGLYCERIDES 86 mg/dL Normal (applies MEDGEN to non-numeric ([place] results) Medical Service) ID Date Data Source [id number] 02/03/2018 12:00:00 AM EDT MEDGEN ([facility]) Name Value Range Interpretation Description Data Sup porting Code Source(s) Document(s ) GLUCOSE 96 mg/dL Normal (applies MEDGEN NONFASTING,SER[facility]) SODIUM, SERUM 142 Normal (applies MEDGEN mEq/L to non-numeric ([place] results) Medical Service) POTASSIUM, SERUM 4.2 Normal (applies MEDGEN mEq/L to non-numeric ([place] results) Medical Service) CHLORIDE, SERUM 111 Above high normal MEDGEN mEq/L ([facility]) Carbon dioxide 23 mEq/L Normal (applies MEDGEN [VFr/PPres] in to non-numeric ([place] [facility] results) Medical system Service) Anion gap in 12.2 Normal (applies MEDGEN Body fluid mEq/L to non-numeric ([place] results) Medical Service) BLOOD UREA 19 mg/dL Normal (applies MEDGEN NITROGEN to non-numeric ([place] results) Medical Service) CREATININE, 1.00 Normal (applies MEDGEN SERUM mg/dL to non-numeric ([place] results) Medical Service) CALCIUM, SERUM 8.6 Normal (applies MEDGEN mg/dL to non-numeric ([place] results) Medical Service) TOTAL PROTEIN 6.6 g/dL Normal (applies MEDGEN to non-numeric ([place] results) Medical Service) Microalbumin 4.1 g/dL Normal (applies MEDGEN [Mass/time] in to non-numeric ([place] Urine collected results) Medical for unspecified Service) duration Globulin 2.5 gldl Normal (applies MEDGEN [Mass/time] in to non-numeric ([place] 24 hour Urine results) Medical Service) A/G RATIO 1.64 Normal (applies MEDGEN g/dl to non-numeric ([place] results) Medical Service) BILIRUBIN, TOTAL 0.5 Normal (applies MEDGEN mg/dL to non-numeric ([place] results) Medical Service) ALKALINE 94 U/L Normal (applies MEDGEN PHOSPHATASE, ALP to non-[facility]) ALT (SGPT) 44 U/L Normal (applies MEDGEN to non-numeric ([place] results) Medical Service) AST 31 U/L Normal (applies MEDGEN to non-numeric ([place] results) Medical Service) EGFR NON AFR 81 Above high normal MEDGEN ICELANDIC mL/min/1 ([facility] .73m2 [facility]) EGFR AFR 98 Above high normal MEDGEN ICELANDIC mL/min/1 ([place] .73m2 [facility]) ID Date Data Source [id number] 02/03/2018 12:00:00 AM EDT MEDGEN ([facility]) Name Value Range Interpretation Description Data Sup porting Code Source(s) Document(s ) WBC 8.4 Normal (applies to MEDGEN 10(3)/uL non-numeric ([place] results) Medical Service) RBC 5.5 Normal (applies to MEDGEN 10(6)/uL non-numeric ([place] results) Medical Service) Hemoglobin 16.7 g/dL Normal (applies to MEDGEN [Mass/volume] non-numeric ([place] in Mixed results) Medical venous blood Service) by Oximetry Hematocrit 47.6 % Normal (applies to MEDGEN [Pure volume non-numeric ([place] fraction] of results) Medical Blood by Service) Automated count MCV 86.9 fL Normal (applies to MEDGEN non-numeric ([place] results) Medical Service) MCH 31 pg Normal (applies to MEDGEN non-numeric ([place] results) Medical Service) MCHC 35 g/dL Normal (applies to MEDGEN non-numeric ([place] results) Medical Service) RDWSD 43.5 fL Normal (applies to MEDGEN non-numeric ([place] results) Medical Service) RDWCV 13.6 % Normal (applies to MEDGEN non-numeric ([facility] results) Medical Service) PLT 116 Below low normal MEDGEN 10(3)/uL ([facility]) MPV 12.0 fL Normal (applies to MEDGEN non-numeric ([place] results) Medical Service) NE# 4.06 Normal (applies to MEDGEN 10(3)/uL non-numeric ([place] results) Medical Service) LY# 3.47 Normal (applies to MEDGEN 10(3)/uL non-numeric ([place] results) Medical Service) MO# 0.54 Normal (applies to MEDGEN 10(3)/uL non-numeric ([place] results) Medical Service) IG# 0.05 Above high normal MEDGEN 10(3)/uL ([facility]) NE% 48.20 % Normal (applies to MEDGEN non-numeric ([facility] results) Medical Service) LY% 41 % Normal (applies to MEDGEN non-numeric ([place] results) Medical Service) MO% 6.4 % Normal (applies to MEDGEN non-numeric ([place] results) Medical Service) EO% 3.1 % Normal (applies to MEDGEN non-numeric ([place] results) Medical Service) BA% 0.5 % Normal (applies to MEDGEN non-numeric ([place] results) Medical Service) IG% 0.60 % Above high normal MEDGEN ([facility]) ID Date Data Source [id number] 02/03/2018 12:00:00 AM EDT MEDGEN ([facility]) Name Value Range Interpretation Code Description Data Supporting Source(s) Document(s ) GLYCOMARK 14.52 Normal (applies to MEDGEN ug/mL non-numeric ([place] results) Medical Service) ID Date Data Source [id number] 02/03/2018 12:00:00 AM EDT MEDGEN ([facility]) Name Value Range Interpretation Description Data Sup porting Code Source(s) Document(s ) Hemoglobin A1c 5.7 % Above high normal MEDGEN in Blood ([facility]) ID Date Data Source [id number] 02/03/2018 12:00:00 AM EDT MEDGEN ([facility]) Name Value Range Interpretation Code Description Data Libra rce(s) Supporting Document(s ) EO# 0.26 Normal (applies to MEDGEN 10(3)/uL non-numeric results) ([facility]) ID Date Data Source [id number] 02/03/2018 12:00:00 AM EDT MEDGEN ([facility]) Name Value Range Interpretation Description Data Sup porting Code Source(s) Document(s ) TSH,3RD 1.00 Normal (applies to MEDGEN GENERATION uIU/mL non-numeric ([place] results) Medical Service) T4 TOTAL 9.5 ug/dL Normal (applies to MEDGEN THYROXINE non-numeric ([place] results) Medical Service) T3 TOTAL 109 ng/dL Normal (applies to MEDGEN non-numeric ([place] results) Medical Service) ID Date Data Source [id number] 02/03/2018 12:00:00 AM EDT MEDGEN ([facility]) Name Value Range Interpretation Description Data Sup porting Code Source(s) Document(s ) VITAMIN D 23.19 Below low normal MEDGEN 25-HYDROXY ng/mL ([facility]) ID Date Data Source [id number] 02/03/2018 12:00:00 AM EDT MEDGEN ([facility]) Name Value Range Interpretation Description Data Sup porting Code Source(s) Document(s ) VITAMIN B12 639 pg/mL Normal (applies to MEDGEN non-numeric ([place] results) Medical Service) ID Date Data Source [id number] 02/03/2018 12:00:00 AM EDT MEDGEN ([facility]) Name Value Range Interpretation Description Data Sup porting Code Source(s) Document(s ) FOLATE 17.5 ng/mL Above high normal MEDGEN SERUM ([facility]) ID Date Data Source [id number] 02/03/2018 12:00:00 AM EDT MEDGEN ([facility]) Name Value Range Interpretation Description Data Sup porting Code Source(s) Document(s ) Cholesterol 117 Normal (applies MEDGEN [Moles/volume] mg/dL to non-numeric ([place] in Pericardial results) Medical fluid Service) LDL CALCULATION 61.8 Normal (applies MEDGEN mg/dL to non-numeric ([place] results) Medical Service) CHOL/HDL RATIO 3.08 Normal (applies MEDGEN ratio to non-numeric ([place] results) Medical Service) HDL CHOLESTEROL 38 mg/dL Above high normal MEDGEN ([facility]) VLDL CALCULATION 17.2 Normal (applies MEDGEN mg/dl to non-numeric ([place] results) Medical Service) TRIGLYCERIDES 86 mg/dL Normal (applies MEDGEN to non-numeric ([place] results) Medical Service) ID Date Data Source [id number] 02/03/2018 12:00:00 AM EDT MEDGEN ([facility]) Name Value Range Interpretation Description Data Sup porting Code Source(s) Document(s ) GLUCOSE 96 mg/dL Normal (applies MEDGEN NONFASTING,SERUM to non-numeric ([facility] results) Medical Service) SODIUM, SERUM 142 Normal (applies MEDGEN mEq/L to non-numeric ([place] results) Medical Service) POTASSIUM, SERUM 4.2 Normal (applies MEDGEN mEq/L to non-numeric ([facility]) Medical Service) CHLORIDE, SERUM 111 Above high normal MEDGEN mEq/L ([facility]) Carbon dioxide 23 mEq/L Normal (applies MEDGEN [VFr/PPres] in to non-numeric ([place] [facility] results) Medical system Service) Anion gap in 12.2 Normal (applies MEDGEN Body fluid mEq/L to non-numeric ([place] results) Medical Service) BLOOD UREA 19 mg/dL Normal (applies MEDGEN NITROGEN to non-numeric ([place] results) Medical Service) CREATININE, 1.00 Normal (applies MEDGEN SERUM mg/dL to non-numeric ([place] results) Medical Service) CALCIUM, SERUM 8.6 Normal (applies MEDGEN mg/dL to non-numeric ([place] results) Medical Service) TOTAL PROTEIN 6.6 g/dL Normal (applies MEDGEN to non-numeric ([place] results) Medical Service) Microalbumin 4.1 g/dL Normal (applies MEDGEN [Mass/time] in to non-numeric ([place] Urine collected results) Medical for unspecified Service) duration Globulin 2.5 gldl Normal (applies MEDGEN [Mass/time] in to non-numeric ([place] 24 hour Urine results) Medical Service) A/G RATIO 1.64 Normal (applies MEDGEN g/dl to non-numeric ([place] results) Medical Service) BILIRUBIN, TOTAL 0.5 Normal (applies MEDGEN mg/dL to non-numeric ([place] results) Medical Service) ALKALINE 94 U/L Normal (applies MEDGEN PHOSPHATASE, ALP to non-numeric [facility]) ALT (SGPT) 44 U/L Normal (applies MEDGEN to non-numeric ([place] results) Medical Service) AST 31 U/L Normal (applies MEDGEN to non-numeric ([place] results) Medical Service) EGFR NON AFR 81 Above high normal MEDGEN ICELANDIC mL/min/1 ([place] .73m2 [facility] Service) EGFR AFR 98 Above high normal MEDGEN ICELANDIC mL/min/1 ([place] .73m2 [facility]) ID Date Data Source [id number] 02/03/2018 12:00:00 AM EDT MEDGEN ([facility]) Name Value Range Interpretation Description Data Sup porting Code Source(s) Document(s ) WBC 8.4 Normal (applies to MEDGEN 10(3)/uL non-numeric ([place] results) Medical Service) RBC 5.5 Normal (applies to MEDGEN 10(6)/uL non-numeric ([place] results) Medical Service) Hemoglobin 16.7 g/dL Normal (applies to MEDGEN [Mass/volume] non-numeric ([place] in Mixed results) Medical venous blood Service) by Oximetry Hematocrit 47.6 % Normal (applies to MEDGEN [Pure volume non-numeric ([place] fraction] of results) Medical Blood by Service) Automated count MCV 86.9 fL Normal (applies to MEDGEN non-numeric ([place] results) Medical Service) MCH 31 pg Normal (applies to MEDGEN non-numeric ([place] results) Medical Service) MCHC 35 g/dL Normal (applies to MEDGEN non-numeric ([place] results) Medical Service) RDWSD 43.5 fL Normal (applies to MEDGEN non-numeric ([place] results) Medical Service) RDWCV 13.6 % Normal (applies to MEDGEN non-numeric ([place] results) Medical Service) PLT 116 Below low normal MEDGEN 10(3)/uL ([facility]) MPV 12.0 fL Normal (applies to MEDGEN non-numeric ([place] results) Medical Service) NE# 4.06 Normal (applies to MEDGEN 10(3)/uL non-numeric ([place] results) Medical Service) LY# 3.47 Normal (applies to MEDGEN 10(3)/uL non-numeric ([place] results) Medical Service) MO# 0.54 Normal (applies to MEDGEN 10(3)/uL non-numeric ([place] results) Medical Service) IG# 0.05 Above high normal MEDGEN 10(3)/uL ([facility]) NE% 48.20 % Normal (applies to MEDGEN non-numeric ([place] results) Medical Service) LY% 41 % Normal (applies to MEDGEN non-numeric ([place] results) Medical Service) MO% 6.4 % Normal (applies to MEDGEN non-numeric ([place] results) Medical Service) EO% 3.1 % Normal (applies to MEDGEN non-numeric ([place] results) Medical Service) BA% 0.5 % Normal (applies to MEDGEN non-numeric ([place] results) Medical Service) IG% 0.60 % Above high normal MEDGEN ([facility]) ID Date Data Source [id number] 02/03/2018 12:00:00 AM EDT MEDGEN ([facility]) Name Value Range Interpretation Code Description Data Supporting Source(s) Document(s ) GLYCOMARK 14.52 Normal (applies to MEDGEN ug/mL non-numeric ([place] results) Medical Service) ID Date Data Source [id number] 02/03/2018 12:00:00 AM EDT MEDGEN ([facility]) Name Value Range Interpretation Description Data Sup porting Code Source(s) Document(s ) Hemoglobin A1c 5.7 % Above high normal MEDGEN in Blood ([facility]) ID Date Data Source [id number] 02/03/2018 12:00:00 AM EDT MEDGEN ([facility]) Name Value Range Interpretation Code Description Data Libra rce(s) Supporting Document(s ) EO# 0.26 Normal (applies to MEDGEN 10(3)/uL non-numeric results) ([facility]) ID Date Data Source [id number] 02/03/2018 12:00:00 AM EDT MEDGEN ([facility]) Name Value Range Interpretation Description Data Sup porting Code Source(s) Document(s ) TSH,3RD 1.00 Normal (applies to MEDGEN GENERATION uIU/mL non-numeric ([place] results) Medical Service) T4 TOTAL 9.5 ug/dL Normal (applies to MEDGEN THYROXINE non-numeric ([place] results) Medical Service) T3 TOTAL 109 ng/dL Normal (applies to MEDGEN non-numeric ([place] results) Medical Service) ID Date Data Source [id number] 02/03/2018 12:00:00 AM EDT MEDGEN ([facility]) Name Value Range Interpretation Description Data Sup porting Code Source(s) Document(s ) VITAMIN D 23.19 Below low normal MEDGEN 25-HYDROXY ng/mL ([facility]) ID Date Data Source [id number] 02/03/2018 12:00:00 AM EDT MEDGEN ([facility]) Name Value Range Interpretation Description Data Sup porting Code Source(s) Document(s ) VITAMIN B12 639 pg/mL Normal (applies to MEDGEN non-numeric ([place] results) Medical Service) ID Date Data Source [id number] 02/03/2018 12:00:00 AM EDT MEDGEN ([facility]) Name Value Range Interpretation Description Data Sup porting Code Source(s) Document(s ) FOLATE 17.5 ng/mL Above high normal MEDGEN SERUM ([facility]) ID Date Data Source [id number] 02/03/2018 12:00:00 AM EDT MEDGEN ([facility]) Name Value Range Interpretation Description Data Sup porting Code Source(s) Document(s ) Cholesterol 117 Normal (applies MEDGEN [Moles/volume] mg/dL to non-numeric ([place] in Pericardial results) Medical fluid Service) LDL CALCULATION 61.8 Normal (applies MEDGEN mg/dL to non-numeric ([place] results) Medical Service) CHOL/HDL RATIO 3.08 Normal (applies MEDGEN ratio to non-numeric ([place] results) Medical Service) HDL CHOLESTEROL 38 mg/dL Above high normal MEDGEN ([facility]) VLDL CALCULATION 17.2 Normal (applies MEDGEN mg/dl to non-numeric ([place] results) Medical Service) TRIGLYCERIDES 86 mg/dL Normal (applies MEDGEN to non-numeric ([place] results) Medical Service) ID Date Data Source [id number] 02/03/2018 12:00:00 AM EDT MEDGEN ([facility]) Name Value Range Interpretation Description Data Sup porting Code Source(s) Document(s ) SODIUM, SERUM 142 Normal (applies MEDGEN mEq/L to non-numeric ([place] results) Medical Service) GLUCOSE 96 mg/dL Normal (applies MEDGEN NONFASTING,SERUM to non-numeric ([facility] results) Medical Service) POTASSIUM, SERUM 4.2 Normal (applies MEDGEN mEq/L to non-numeric ([place] results) Medical Service) CHLORIDE, SERUM 111 Above high normal MEDGEN mEq/L ([facility]) Carbon dioxide 23 mEq/L Normal (applies MEDGEN [VFr/PPres] in to non-numeric ([place] [facility] results) Medical system Service) Anion gap in 12.2 Normal (applies MEDGEN Body fluid mEq/L to non-numeric ([place] results) Medical Service) BLOOD UREA 19 mg/dL Normal (applies MEDGEN NITROGEN to non-numeric ([place] results) Medical Service) CREATININE, 1.00 Normal (applies MEDGEN SERUM mg/dL to non-numeric ([place] results) Medical Service) CALCIUM, SERUM 8.6 Normal (applies MEDGEN mg/dL to non-numeric ([place] results) Medical Service) TOTAL PROTEIN 6.6 g/dL Normal (applies MEDGEN to non-numeric ([place] results) Medical Service) Microalbumin 4.1 g/dL Normal (applies MEDGEN [Mass/time] in to non-numeric ([place] Urine collected results) Medical for unspecified Service) duration Globulin 2.5 gldl Normal (applies MEDGEN [Mass/time] in to non-numeric ([place] 24 hour Urine results) Medical Service) A/G RATIO 1.64 Normal (applies MEDGEN g/dl to non-numeric ([place] results) Medical Service) BILIRUBIN, TOTAL 0.5 Normal (applies MEDGEN mg/dL to non-numeric ([place] results) Medical Service) ALKALINE 94 U/L Normal (applies MEDGEN PHOSPHATASE, ALP to non-numeric ([facility] results) Medical Service) ALT (SGPT) 44 U/L Normal (applies MEDGEN to non-numeric ([place] results) Medical Service) AST 31 U/L Normal (applies MEDGEN to non-numeric ([place] results) Medical Service) EGFR NON AFR 81 Above high normal MEDGEN ICELANDIC mL/min/1 ([place] .73m2 [facility] Service) EGFR AFR 98 Above high normal MEDGEN ICELANDIC mL/min/1 ([place] .73m2 [facility] Service) ID Date Data Source [id number] 02/03/2018 12:00:00 AM EDT MEDGEN ([facility]) Name Value Range Interpretation Description Data Sup porting Code Source(s) Document(s ) WBC 8.4 Normal (applies to MEDGEN 10(3)/uL non-numeric ([place] results) Medical Service) RBC 5.5 Normal (applies to MEDGEN 10(6)/uL non-numeric ([place] results) Medical Service) Hemoglobin 16.7 g/dL Normal (applies to MEDGEN [Mass/volume] non-numeric ([place] in Mixed results) Medical venous blood Service) by Oximetry Hematocrit 47.6 % Normal (applies to MEDGEN [Pure volume non-numeric ([place] fraction] of results) Medical Blood by Service) Automated count MCV 86.9 fL Normal (applies to MEDGEN non-numeric ([place] results) Medical Service) MCH 31 pg Normal (applies to MEDGEN non-numeric ([place] results) Medical Service) MCHC 35 g/dL Normal (applies to MEDGEN non-numeric ([place] results) Medical Service) RDWSD 43.5 fL Normal (applies to MEDGEN non-numeric ([place] results) Medical Service) RDWCV 13.6 % Normal (applies to MEDGEN non-numeric ([place] results) Medical Service) PLT 116 Below low normal MEDGEN 10(3)/uL ([facility]) MPV 12.0 fL Normal (applies to MEDGEN non-numeric ([place] results) Medical Service) NE# 4.06 Normal (applies to MEDGEN 10(3)/uL non-numeric ([place] results) Medical Service) LY# 3.47 Normal (applies to MEDGEN 10(3)/uL non-numeric ([place] results) Medical Service) MO# 0.54 Normal (applies to MEDGEN 10(3)/uL non-numeric ([place] results) Medical Service) IG# 0.05 Above high normal MEDGEN 10(3)/uL ([facility]) NE% 48.20 % Normal (applies to MEDGEN non-numeric ([place] results) Medical Service) LY% 41 % Normal (applies to MEDGEN non-numeric ([place] results) Medical Service) MO% 6.4 % Normal (applies to MEDGEN non-numeric ([place] results) Medical Service) EO% 3.1 % Normal (applies to MEDGEN non-numeric ([place] results) Medical Service) BA% 0.5 % Normal (applies to MEDGEN non-numeric ([place] results) Medical Service) IG% 0.60 % Above high normal MEDGEN ([facility]) ID Date Data Source [id number] 02/03/2018 12:00:00 AM EDT [facility] ([facility]) Name Value Range Interpretation Code Description Data Supporting Source(s) Document(s ) GLYCOMARK 14.52 Normal (applies to MEDGEN ug/mL non-numeric ([place] results) Medical Service) ID Date Data Source [id number] 02/03/2018 12:00:00 AM EDT MEDGEN ([facility]) Name Value Range Interpretation Description Data Sup porting Code Source(s) Document(s ) Hemoglobin A1c 5.7 % Above high normal [facility] in Blood ([facility]) ID Date Data Source [id number] 02/03/2018 12:00:00 AM EDT MEDGEN ([facility]) Name Value Range Interpretation Code Description Data Libra rce(s) Supporting Document(s ) EO# 0.26 Normal (applies to MEDGEN 10(3)/uL non-numeric results) ([facility]) ID Date Data Source [id number] 02/03/2018 12:00:00 AM EDT MEDGEN ([facility]) Name Value Range Interpretation Description Data Sup porting Code Source(s) Document(s ) TSH,3RD 1.00 Normal (applies to MEDGEN GENERATION uIU/mL non-numeric ([place] results) Medical Service) T4 TOTAL 9.5 ug/dL Normal (applies to MEDGEN THYROXINE non-numeric ([place] results) Medical Service) T3 TOTAL 109 ng/dL Normal (applies to MEDGEN non-numeric ([place] results) Medical Service) ID Date Data Source [id number] 02/03/2018 12:00:00 AM EDT MEDGEN ([facility]) Name Value Range Interpretation Description Data Sup porting Code Source(s) Document(s ) VITAMIN D 23.19 Below low normal MEDGEN 25-HYDROXY ng/mL ([facility]) ID Date Data Source [id number] 02/03/2018 12:00:00 AM EDT MEDGEN ([facility]) Name Value Range Interpretation Description Data Sup porting Code Source(s) Document(s ) VITAMIN B12 639 pg/mL Normal (applies to MEDGEN non-numeric ([place] results) Medical Service) ID Date Data Source [id number] 02/03/2018 12:00:00 AM EDT MEDGEN ([facility]) Name Value Range Interpretation Description Data Sup porting Code Source(s) Document(s ) FOLATE 17.5 ng/mL Above high normal MEDGEN SERUM ([facility]) ID Date Data Source [id number] 02/03/2018 12:00:00 AM EDT MEDGEN ([facility]) Name Value Range Interpretation Description Data Sup porting Code Source(s) Document(s ) Cholesterol 117 Normal (applies MEDGEN [Moles/volume] mg/dL to non-numeric ([place] in Pericardial results) Medical fluid Service) LDL CALCULATION 61.8 Normal (applies MEDGEN mg/dL to non-numeric ([place] results) Medical Service) CHOL/HDL RATIO 3.08 Normal (applies MEDGEN ratio to non-numeric ([place] results) Medical Service) HDL CHOLESTEROL 38 mg/dL Above high normal MEDGEN ([facility]) VLDL CALCULATION 17.2 Normal (applies MEDGEN mg/dl to non-numeric ([place] results) Medical Service) TRIGLYCERIDES 86 mg/dL Normal (applies MEDGEN to non-numeric ([place] results) Medical Service) ID Date Data Source [id number] 02/03/2018 12:00:00 AM EDT MEDGEN ([facility]) Name Value Range Interpretation Description Data Sup porting Code Source(s) Document(s ) GLUCOSE 96 mg/dL Normal (applies MEDGEN NONFASTING,SERUM to non-numeric [facility]) SODIUM, SERUM 142 Normal (applies MEDGEN mEq/L to non-numeric ([place] results) Medical Service) POTASSIUM, SERUM 4.2 Normal (applies MEDGEN mEq/L to non-numeric ([place] results) Medical Service) CHLORIDE, SERUM 111 Above high normal MEDGEN mEq/L ([facility]) Carbon dioxide 23 mEq/L Normal (applies MEDGEN [VFr/PPres] in to non-numeric ([place] [facility] results) Medical system Service) Anion gap in 12.2 Normal (applies MEDGEN Body fluid mEq/L to non-numeric ([place] results) Medical Service) BLOOD UREA 19 mg/dL Normal (applies MEDGEN NITROGEN to non-numeric ([place] results) Medical Service) CREATININE, 1.00 Normal (applies MEDGEN SERUM mg/dL to non-numeric ([place] results) Medical Service) CALCIUM, SERUM 8.6 Normal (applies MEDGEN mg/dL to non-numeric ([place] results) Medical Service) TOTAL PROTEIN 6.6 g/dL Normal (applies MEDGEN to non-numeric ([place] results) Medical Service) Microalbumin 4.1 g/dL Normal (applies MEDGEN [Mass/time] in to non-numeric ([place] Urine collected results) Medical for unspecified Service) duration Globulin 2.5 gldl Normal (applies MEDGEN [Mass/time] in to non-numeric ([place] 24 hour Urine results) Medical Service) A/G RATIO 1.64 Normal (applies MEDGEN g/dl to non-numeric ([place] results) Medical Service) BILIRUBIN, TOTAL 0.5 Normal (applies MEDGEN mg/dL to non-numeric ([place] results) Medical Service) ALKALINE 94 U/L Normal (applies MEDGEN PHOSPHATASE, [facility]) ALT (SGPT) 44 U/L Normal (applies MEDGEN to non-numeric ([place] results) Medical Service) AST 31 U/L Normal (applies MEDGEN to non-numeric ([place] results) Medical Service) EGFR NON AFR 81 Above high normal MEDGEN ICELANDIC mL/min/1 ([place] .73m2 Medical Service) EGFR AFR 98 Above high normal MEDGEN ICELANDIC mL/min/1 ([place] .73m2 Medical Service) ID Date Data Source [id number] 02/03/2018 12:00:00 AM EDT MEDGEN ([facility] Medical Service) Name Value Range Interpretation Description Data Sup porting Code Source(s) Document(s ) WBC 8.4 Normal (applies to MEDGEN 10(3)/uL non-numeric ([place] results) Medical Service) RBC 5.5 Normal (applies to MEDGEN 10(6)/uL non-numeric ([place] results) Medical Service) Hemoglobin 16.7 g/dL Normal (applies to MEDGEN [Mass/volume] non-numeric ([place] in Mixed results) Medical venous blood Service) by Oximetry Hematocrit 47.6 % Normal (applies to MEDGEN [Pure volume non-numeric ([place] fraction] of results) Medical Blood by Service) Automated count MCV 86.9 fL Normal (applies to MEDGEN non-numeric ([place] results) Medical Service) MCH 31 pg Normal (applies to MEDGEN non-numeric ([place] results) Medical Service) MCHC 35 g/dL Normal (applies to MEDGEN non-numeric ([place] results) Medical Service) RDWSD 43.5 fL Normal (applies to MEDGEN non-numeric ([place] results) Medical Service) RDWCV 13.6 % Normal (applies to MEDGEN non-numeric ([place] results) Medical Service) PLT 116 Below low normal MEDGEN 10(3)/uL ([place] [facility]) MPV 12.0 fL Normal (applies to MEDGEN non-numeric ([place] results) Medical Service) NE# 4.06 Normal (applies to MEDGEN 10(3)/uL non-numeric ([place] results) Medical Service) LY# 3.47 Normal (applies to MEDGEN 10(3)/uL non-numeric ([place] results) Medical Service) MO# 0.54 Normal (applies to MEDGEN 10(3)/uL non-numeric ([place] results) Medical Service) IG# 0.05 Above high normal MEDGEN 10(3)/uL ([place] [facility] Service) NE% 48.20 % Normal (applies to MEDGEN non-numeric ([place] results) Medical Service) LY% 41 % Normal (applies to MEDGEN non-numeric ([place] results) Medical Service) MO% 6.4 % Normal (applies to MEDGEN non-numeric ([place] results) Medical Service) EO% 3.1 % Normal (applies to MEDGEN non-numeric ([place] results) Medical Service) BA% 0.5 % Normal (applies to MEDGEN non-numeric ([place] results) Medical Service) IG% 0.60 % Above high normal MEDGEN ([place] [facility]) ID Date Data Source [id number] 02/03/2018 12:00:00 AM EDT MEDGEN ([facility]) Name Value Range Interpretation Code Description Data Supporting Source(s) Document(s ) GLYCOMARK 14.52 Normal (applies to MEDGEN ug/mL non-numeric ([place] results) Medical Service) ID Date Data Source [id number] 02/03/2018 12:00:00 AM EDT MEDGEN ([facility]) Name Value Range Interpretation Description Data Sup porting Code Source(s) Document(s ) Hemoglobin A1c 5.7 % Above high normal MEDGEN in Blood ([place]) ID Date Data Source [id number] 02/03/2018 12:00:00 AM EDT MEDGEN ([facility] [place] [facility]) Name Value Range Interpretation Code Description Data Libra rce(s) Supporting Document(s ) EO# 0.26 Normal (applies to MEDGEN 10(3)/uL non-numeric results) ([place] [facility]) ID Date Data Source [id number] 02/03/2018 12:00:00 AM EDT MEDGEN ([facility] [place]) Name Value Range Interpretation Description Data Sup porting Code Source(s) Document(s ) TSH,3RD 1.00 Normal (applies to MEDGEN GENERATION uIU/mL non-numeric ([place] results) Medical Service) T4 TOTAL 9.5 ug/dL Normal (applies to MEDGEN THYROXINE non-numeric ([place] results) Medical Service) T3 TOTAL 109 ng/dL Normal (applies to MEDGEN non-numeric ([place] results) Medical Service) ID Date Data Source [id number] 09/26/2017 12:00:00 AM EDT MEDGEN ([facility] Medical [facility]) Name Value Range Interpretation Description Data Sup porting Code Source(s) Document(s ) HEPATITIS NONREACTIVE Normal (applies MEDGEN A(IGM) to non-numeric ([place] results) Medical Service) ID Date Data Source [id number] 09/26/2017 12:00:00 AM EDT MEDGEN ([facility] Medical Service) Name Value Range Interpretation Code Description Data Libra rce(s) Supporting Document(s ) HCV SEE NOTE Normal (applies to MEDGEN RNA,QN,RE non-numeric ([place] AL TIME results) Medical PCR Service) HCV SEE NOTE Normal (applies to MEDGEN RNA,QN,RE non-numeric ([place] AL TIME results) Medical PCR Service) ID Date Data Source [id number] 09/26/2017 12:00:00 AM EDT MEDGEN ([facility] Service) Name Value Range Interpretation Description Data Sup porting Code Source(s) Document(s ) VITAMIN D 17.84 Below low normal MEDGEN 25-HYDROXY ng/mL ([facility]) ID Date Data Source [id number] 09/26/2017 12:00:00 AM EDT MEDGEN ([facility] [employer] [facility]) Name Value Range Interpretation Description Data Sup porting Code Source(s) Document(s ) VITAMIN B12 278 pg/mL Normal (applies to MEDGEN non-numeric ([place] results) Medical Service) ID Date Data Source [id number] 09/26/2017 12:00:00 AM EDT [employer] ([facility] [place] [facility]) Name Value Range Interpretation Description Data Sup porting Code Source(s) Document(s ) FOLATE 13.7 ng/mL Above high normal MEDGEN SERUM ([place] [facility]) ID Date Data Source [id number] 09/26/2017 12:00:00 AM EDT MEDGEN ([facility] [place]) Name Value Range Interpretation Description Data Sup porting Code Source(s) Document(s ) Cholesterol 124 Normal (applies MEDGEN [Moles/volume] mg/dL to non-numeric ([place] in Pericardial results) Medical fluid Service) LDL CALCULATION 67.2 Normal (applies MEDGEN mg/dL to non-numeric ([place] results) Medical Service) CHOL/HDL RATIO 3.02 Normal (applies MEDGEN ratio to non-numeric ([place] results) Medical Service) HDL CHOLESTEROL 41 mg/dL Above high normal MEDGEN ([place] [facility] Service) VLDL CALCULATION 15.8 Normal (applies MEDGEN mg/dl to non-numeric ([place] results) Medical Service) TRIGLYCERIDES 79 mg/dL Normal (applies MEDGEN to non-numeric ([place] results) Medical Service) ID Date Data Source [id number] 09/26/2017 12:00:00 AM EDT MEDGEN ([facility] Medical [facility]) Name Value Range Interpretation Description Data Sup porting Code Source(s) Document(s ) GLUCOSE 87 mg/dL Normal (applies MEDGEN NONFASTING,SERUM to non-numeric [facility] Medical Service) SODIUM, SERUM 143 Normal (applies MEDGEN mEq/L to non-numeric ([place] results) Medical Service) POTASSIUM, SERUM 4.4 Normal (applies MEDGEN mEq/L to non-numeric ([place] results) Medical Service) CHLORIDE, SERUM 111 Above high normal MEDGEN mEq/L ([place] [facility]) Carbon dioxide 23 mEq/L Normal (applies MEDGEN [VFr/PPres] in to non-numeric ([place] [employer] results) Medical system Service) Anion gap in 13.4 Normal (applies MEDGEN Body fluid mEq/L to non-numeric ([place] results) Medical Service) BLOOD UREA 17 mg/dL Normal (applies MEDGEN NITROGEN to non-numeric ([place] results) Medical Service) CREATININE, 1.10 Normal (applies MEDGEN SERUM mg/dL to non-numeric ([place] results) Medical Service) CALCIUM, SERUM 8.8 Normal (applies MEDGEN mg/dL to non-numeric ([place] results) Medical Service) TOTAL PROTEIN 7.0 g/dL Normal (applies MEDGEN to non-numeric ([place] results) Medical Service) Microalbumin 4.2 g/dL Normal (applies MEDGEN [Mass/time] in to non-numeric ([place] Urine collected results) Medical for unspecified Service) duration Globulin 2.8 gldl Normal (applies MEDGEN [Mass/time] in to non-numeric ([place] 24 hour Urine results) Medical Service) A/G RATIO 1.50 Normal (applies MEDGEN g/dl to non-numeric ([place] results) Medical Service) BILIRUBIN, TOTAL 1.0 Normal (applies MEDGEN mg/dL to non-numeric ([place] results) Medical Service) ALKALINE 92 U/L Normal (applies MEDGEN PHOSPHATASE, ALP to non-numeric ([facility] results) Medical Service) ALT (SGPT) 58 U/L Above high normal MEDGEN ([place] [facility] Service) AST 57 U/L Above high normal MEDGEN ([place] [facility]) EGFR NON AFR 73 Above high normal MEDGEN ICELANDIC mL/min/1 ([place] .73m2 Medical Service) EGFR AFR 88 Above high normal MEDGEN ICELANDIC mL/min/1 ([place] .73m2 Medical Service) ID Date Data Source [id number] 09/26/2017 12:00:00 AM EDT [employer] ([facility] [place] [facility]) Name Value Range Interpretation Code Description Data Libra rce(s) Supporting Document(s ) URIC ACID 6.9 mg/dL Normal (applies to MEDGEN non-numeric ([place] results) Medical Service) ID Date Data Source [id number] 09/26/2017 12:00:00 AM EDT MEDGEN ([facility] [place] [facility]) Name Value Range Interpretation Description Data Sup porting Code Source(s) Document(s ) WBC 6.1 Normal (applies to MEDGEN 10(3)/uL non-numeric ([place] results) Medical Service) RBC 5.3 Normal (applies to MEDGEN 10(6)/uL non-numeric ([place] results) Medical Service) Hemoglobin 16.0 g/dL Normal (applies to MEDGEN [Mass/volume] non-numeric ([place] in Mixed results) Medical venous blood Service) by Oximetry Hematocrit 47.8 % Normal (applies to MEDGEN [Pure volume non-numeric ([place] fraction] of results) Medical Blood by Service) Automated count MCV 89.8 fL Normal (applies to MEDGEN non-numeric ([place] results) Medical Service) MCH 30 pg Normal (applies to MEDGEN non-numeric ([place] results) Medical Service) MCHC 34 g/dL Normal (applies to MEDGEN non-numeric ([place] results) Medical Service) RDWSD 44.3 fL Normal (applies to MEDGEN non-numeric ([place] results) Medical Service) RDWCV 13.7 % Normal (applies to MEDGEN non-numeric ([place] results) Medical Service) PLT 128 Below low normal MEDGEN 10(3)/uL ([place] Medical Service) MPV 11.3 fL Normal (applies to MEDGEN non-numeric ([place] results) Medical Service) NE# 2.92 Normal (applies to MEDGEN 10(3)/uL non-numeric ([place] results) Medical Service) LY# 1.99 Normal (applies to MEDGEN 10(3)/uL non-numeric ([place] results) Medical Service) MO# 0.58 Normal (applies to MEDGEN 10(3)/uL non-numeric ([place] results) Medical Service) EO# 0.53 Above high normal MEDGEN 10(3)/uL ([place] [facility] Service) IG# 0.01 Normal (applies to MEDGEN 10(3)/uL non-numeric ([place] results) Medical Service) NE% 48.00 % Normal (applies to MEDGEN non-numeric ([place] results) Medical Service) LY% 33 % Normal (applies to MEDGEN non-numeric ([place] results) Medical Service) MO% 9.6 % Normal (applies to MEDGEN non-numeric ([place] results) Medical Service) EO% 8.7 % Above high normal MEDGEN ([place] [facility]) BA% 0.7 % Normal (applies to MEDGEN non-numeric ([place] results) Medical Service) IG% 0.20 % Normal (applies to MEDGEN non-numeric ([place] results) Medical Service) ID Date Data Source [id number] 09/26/2017 12:00:00 AM EDT MEDGEN ([facility]) Name Value Range Interpretation Code Description Data Supporting Source(s) Document(s ) GLYCOMARK 11.21 Normal (applies to MEDGEN ug/mL non-numeric ([place] results) Medical Service) ID Date Data Source [id number] 09/26/2017 12:00:00 AM EDT MEDGEN [facility] Medical [facility]) Name Value Range Interpretation Description Data Sup porting Code Source(s) Document(s ) Hemoglobin A1c 5.5 % Normal (applies to MEDGEN in Blood non-numeric ([place] results) Medical Service) ID Date Data Source [id number] 09/26/2017 12:00:00 AM EDT MEDGEN [facility] Medical [facility]) Name Value Range Interpretation Description Data Sup porting Code Source(s) Document(s ) HEPATITIS BE NONREACTIVE Normal (applies MEDGEN AG to non-numeric ([place] results) Medical Service) ID Date Data Source [id number] 09/26/2017 12:00:00 AM EDT MEDGEN ([facility]) Name Value Range Interpretation Description Data Sup porting Code Source(s) Document(s ) HEPATITIS B <3.10 Normal (applies to MEDGEN SURFACE AB (NONREACT non-numeric ([place] MONTSE) results) Medical Service) ID Date Data Source [id number] 09/26/2017 12:00:00 AM EDT MEDGEN [facility] Medical [facility]) Name Value Range Interpretation Description Data Sup porting Code Source(s) Document(s ) HEPATITIS B REACTIVE Normal (applies to MEDGEN CORE AB QL non-numeric ([place] results) Medical Service) ID Date Data Source [id number] 09/26/2017 12:00:00 AM EDT MEDGEN ([facility]) Name Value Range Interpretation Description Data Sup porting Code Source(s) Document(s ) HEPATITIS C REACTIVE Normal (applies to MEDGEN AB QL non-numeric ([place] results) Medical Service) ID Date Data Source [id number] 09/26/2017 12:00:00 AM EDT [facility]) Name Value Range Interpretation Code Description Data Libra rce(s) Supporting Document(s ) HBeAB Eqv Normal (applies to MEDGEN ([facility] non-numeric results) Medical S ervice) ID Date Data Source [id number] 09/26/2017 12:00:00 AM EDT MEDGEN [facility] [facility]) Name Value Range Interpretation Description Data Sup porting Code Source(s) Document(s ) HEPATITIS BS NONREACTIVE Normal (applies MEDGEN AG SCREEN to non-numeric ([place] results) Medical Service) ID Date Data Source [id number] 09/26/2017 12:00:00 AM EDT MEDGEN ([facility]) Name Value Range Interpretation Description Data Sup porting Code Source(s) Document(s ) HEPATITIS A REACTIVE Normal (applies to MEDGEN AB non-numeric ([place] results) Medical Service) ID Date Data Source [id number] 09/26/2017 12:00:00 AM EDT MEDGEN ([facility]) Name Value Range Interpretation Description Data Sup porting Code Source(s) Document(s ) TSH,3RD 1.08 Normal (applies to MEDGEN GENERATION uIU/mL non-numeric ([place] results) Medical Service) T4 TOTAL 11.8 Above high normal MEDGEN THYROXINE ug/dL ([place] [facility] Service) T3 TOTAL 169 ng/dL Normal (applies to MEDGEN non-numeric ([place] results) Medical Service) ID Date Data Source [id number] 09/26/2017 12:00:00 AM EDT MEDGEN ([facility]) Name Value Range Interpretation Description Data Sup porting Code Source(s) Document(s ) HEPATITIS NONREACTIVE Normal (applies MEDGEN A(IGM) to non-numeric ([place] results) Medical Service) ID Date Data Source [id number] 09/26/2017 12:00:00 AM EDT MEDGEN ([facility]) Name Value Range Interpretation Code Description Data Libra rce(s) Supporting Document(s ) HCV SEE NOTE Normal (applies to MEDGEN RNA,QN,RE non-numeric ([place] AL TIME results) Medical PCR Service) HCV SEE NOTE Normal (applies to MEDGEN RNA,QN,RE non-numeric ([place] AL TIME results) Medical PCR Service) ID Date Data Source [id number] 09/26/2017 12:00:00 AM EDT MEDGEN ([facility]) Name Value Range Interpretation Description Data Sup porting Code Source(s) Document(s ) VITAMIN D 17.84 Below low normal MEDGEN 25-HYDROXY ng/mL ([facility]) ID Date Data Source [id number] 09/26/2017 12:00:00 AM EDT MEDGEN ([facility]) Name Value Range Interpretation Description Data Sup porting Code Source(s) Document(s ) VITAMIN B12 278 pg/mL Normal (applies to MEDGEN non-numeric ([place] results) Medical Service) ID Date Data Source [id number] 09/26/2017 12:00:00 AM EDT MEDGEN ([facility] Medical [facility]) Name Value Range Interpretation Description Data Sup porting Code Source(s) Document(s ) FOLATE 13.7 ng/mL Above high normal MEDGEN SERUM ([place] [facility] Service) ID Date Data Source [id number] 09/26/2017 12:00:00 AM EDT MEDGEN ([facility] Medical [facility]) Name Value Range Interpretation Description Data Sup porting Code Source(s) Document(s ) Cholesterol 124 Normal (applies MEDGEN [Moles/volume] mg/dL to non-numeric ([place] in Pericardial results) Medical fluid Service) LDL CALCULATION 67.2 Normal (applies MEDGEN mg/dL to non-numeric ([place] results) Medical Service) CHOL/HDL RATIO 3.02 Normal (applies MEDGEN ratio to non-numeric ([place] results) Medical Service) HDL CHOLESTEROL 41 mg/dL Above high normal MEDGEN ([place] [facility] Service) VLDL CALCULATION 15.8 Normal (applies MEDGEN mg/dl to non-numeric ([place] results) Medical Service) TRIGLYCERIDES 79 mg/dL Normal (applies MEDGEN to non-numeric ([place] results) Medical Service) ID Date Data Source [id number] 09/26/2017 12:00:00 AM EDT MEDGEN ([facility] Medical [facility]) Name Value Range Interpretation Description Data Sup porting Code Source(s) Document(s ) GLUCOSE 87 mg/dL Normal (applies MEDGEN NONFASTING,SERUM to non-numeric ([place] results) Medical Service) SODIUM, SERUM 143 Normal (applies MEDGEN mEq/L to non-numeric ([place] results) Medical Service) POTASSIUM, SERUM 4.4 Normal (applies MEDGEN mEq/L to non-numeric ([place] results) Medical Service) CHLORIDE, SERUM 111 Above high normal MEDGEN mEq/L ([place] [facility] Service) Carbon dioxide 23 mEq/L Normal (applies MEDGEN [VFr/PPres] in to non-numeric ([place] [employer] results) Medical system Service) Anion gap in 13.4 Normal (applies MEDGEN Body fluid mEq/L to non-numeric ([place] results) Medical Service) BLOOD UREA 17 mg/dL Normal (applies MEDGEN NITROGEN to non-numeric ([place] results) Medical Service) CREATININE, 1.10 Normal (applies MEDGEN SERUM mg/dL to non-numeric ([place] results) Medical Service) CALCIUM, SERUM 8.8 Normal (applies MEDGEN mg/dL to non-numeric ([place] results) Medical Service) TOTAL PROTEIN 7.0 g/dL Normal (applies MEDGEN to non-numeric ([place] results) Medical Service) Microalbumin 4.2 g/dL Normal (applies MEDGEN [Mass/time] in to non-numeric ([place] Urine collected results) Medical for unspecified Service) duration Globulin 2.8 gldl Normal (applies MEDGEN [Mass/time] in to non-numeric ([place] 24 hour Urine results) Medical Service) A/G RATIO 1.50 Normal (applies MEDGEN g/dl to non-numeric ([place] results) Medical Service) BILIRUBIN, TOTAL 1.0 Normal (applies MEDGEN mg/dL to non-numeric ([place] results) Medical Service) ALKALINE 92 U/L Normal (applies MEDGEN PHOSPHATASE, ALP to non-numeric ([facility] results) Medical Service) ALT (SGPT) 58 U/L Above high normal MEDGEN ([place] [facility]) AST 57 U/L Above high normal MEDGEN ([place] [facility]) EGFR NON AFR 73 Above high normal MEDGEN ICELANDIC mL/min/1 ([place] .73m2 Medical Service) EGFR AFR 88 Above high normal MEDGEN ICELANDIC mL/min/1 ([place] .73m2 Medical Service) ID Date Data Source [id number] 09/26/2017 12:00:00 AM EDT [employer] ([facility] [place] [facility]) Name Value Range Interpretation Code Description Data Libra rce(s) Supporting Document(s ) URIC ACID 6.9 mg/dL Normal (applies to MEDGEN non-numeric ([place] results) Medical Service) ID Date Data Source [id number] 09/26/2017 12:00:00 AM EDT [employer] ([facility] [place] [facility]) Name Value Range Interpretation Description Data Sup porting Code Source(s) Document(s ) WBC 6.1 Normal (applies to MEDGEN 10(3)/uL non-numeric ([place] results) Medical Service) RBC 5.3 Normal (applies to MEDGEN 10(6)/uL non-numeric ([place] results) Medical Service) Hemoglobin 16.0 g/dL Normal (applies to MEDGEN [Mass/volume] non-numeric ([place] in Mixed results) Medical venous blood Service) by Oximetry Hematocrit 47.8 % Normal (applies to MEDGEN [Pure volume non-numeric ([place] fraction] of results) Medical Blood by Service) Automated count MCV 89.8 fL Normal (applies to MEDGEN non-numeric ([place] results) Medical Service) MCH 30 pg Normal (applies to MEDGEN non-numeric ([place] results) Medical Service) MCHC 34 g/dL Normal (applies to MEDGEN non-numeric ([place] results) Medical Service) RDWSD 44.3 fL Normal (applies to MEDGEN non-numeric ([place] results) Medical Service) RDWCV 13.7 % Normal (applies to MEDGEN non-numeric ([place] results) Medical Service) PLT 128 Below low normal MEDGEN 10(3)/uL ([place] [facility]) MPV 11.3 fL Normal (applies to MEDGEN non-numeric ([place] results) Medical Service) NE# 2.92 Normal (applies to MEDGEN 10(3)/uL non-numeric ([place] results) Medical Service) LY# 1.99 Normal (applies to MEDGEN 10(3)/uL non-numeric ([place] results) Medical Service) MO# 0.58 Normal (applies to MEDGEN 10(3)/uL non-numeric ([place] results) Medical Service) EO# 0.53 Above high normal MEDGEN 10(3)/uL ([place] [facility] Service) IG# 0.01 Normal (applies to MEDGEN 10(3)/uL non-numeric ([place] results) Medical Service) NE% 48.00 % Normal (applies to MEDGEN non-numeric ([place] results) Medical Service) LY% 33 % Normal (applies to MEDGEN non-numeric ([place] results) Medical Service) MO% 9.6 % Normal (applies to MEDGEN non-numeric ([place] results) Medical Service) EO% 8.7 % Above high normal MEDGEN ([place] [facility]) BA% 0.7 % Normal (applies to MEDGEN non-numeric ([place] results) Medical Service) IG% 0.20 % Normal (applies to MEDGEN non-numeric ([place] results) Medical Service) ID Date Data Source [id number] 09/26/2017 12:00:00 AM EDT MEDGEN ([facility]) Name Value Range Interpretation Code Description Data Supporting Source(s) Document(s ) GLYCOMARK 11.21 Normal (applies to MEDGEN ug/mL non-numeric ([place] results) Medical Service) ID Date Data Source [id number] 09/26/2017 12:00:00 AM EDT MEDGEN [facility] Medical [facility]) Name Value Range Interpretation Description Data Sup porting Code Source(s) Document(s ) Hemoglobin A1c 5.5 % Normal (applies to MEDGEN in Blood non-numeric ([place] results) Medical Service) ID Date Data Source [id number] 09/26/2017 12:00:00 AM EDT MEDGEN [facility] [place] [facility]) Name Value Range Interpretation Description Data Sup porting Code Source(s) Document(s ) HEPATITIS BE NONREACTIVE Normal (applies MEDGEN AG to non-numeric ([place] results) Medical Service) ID Date Data Source [id number] 09/26/2017 12:00:00 AM EDT MEDGEN ([facility]) Name Value Range Interpretation Description Data Sup porting Code Source(s) Document(s ) HEPATITIS B <3.10 Normal (applies to MEDGEN SURFACE AB (NONREACT non-numeric ([place] MONTSE) results) Medical Service) ID Date Data Source [id number] 09/26/2017 12:00:00 AM EDT MEDGEN ([facility]) Name Value Range Interpretation Description Data Sup porting Code Source(s) Document(s ) HEPATITIS B REACTIVE Normal (applies to MEDGEN CORE AB QL non-numeric ([place] results) Medical Service) ID Date Data Source [id number] 09/26/2017 12:00:00 AM EDT MEDGEN ([facility]) Name Value Range Interpretation Description Data Sup porting Code Source(s) Document(s ) HEPATITIS C REACTIVE Normal (applies to MEDGEN AB QL non-numeric ([place] results) Medical Service) ID Date Data Source [id number] 09/26/2017 12:00:00 AM EDT MEDGEN [facility] Medical [facility]) Name Value Range Interpretation Code Description Data Libra rce(s) Supporting Document(s ) HBeAB Eqv Normal (applies to [facility]GEN ([facility] non-numeric results) Medical S ervice) ID Date Data Source [id number] 09/26/2017 12:00:00 AM EDT MED[facility] ([facility]) Name Value Range Interpretation Description Data Sup porting Code Source(s) Document(s ) HEPATITIS BS NONREACTIVE Normal (applies MEDGEN AG SCREEN to non-numeric ([place] results) Medical Service) ID Date Data Source [id number] 09/26/2017 12:00:00 AM EDT [facility] ([facility]) Name Value Range Interpretation Description Data Sup porting Code Source(s) Document(s ) HEPATITIS A REACTIVE Normal (applies to MEDGEN AB non-numeric ([place] results) Medical Service) ID Date Data Source [id number] 09/26/2017 12:00:00 AM EDT [facility] ([facility]) Name Value Range Interpretation Description Data Sup porting Code Source(s) Document(s ) TSH,3RD 1.08 Normal (applies to MEDGEN GENERATION uIU/mL non-numeric ([place] results) Medical Service) T4 TOTAL 11.8 Above high normal MED[facility] THYROXINE ug/dL ([facility] Service) T3 TOTAL 169 ng/dL Normal (applies to MEDGEN non-numeric ([place] results) Medical Service) ID Date Data Source [id number] 09/26/2017 12:00:00 AM EDT [facility] ([facility]) Name Value Range Interpretation Description Data Sup porting Code Source(s) Document(s ) HEPATITIS NONREACTIVE Normal (applies MEDGEN A(IGM) to non-numeric ([place] results) Medical Service) ID Date Data Source [id number] 09/26/2017 12:00:00 AM EDT [facility] ([facility]) Name Value Range Interpretation Code Description Data Libra rce(s) Supporting Document(s ) HCV SEE NOTE Normal (applies to MEDGEN RNA,QN,RE non-numeric ([place] TIME results) Medical PCR Service) HCV SEE NOTE Normal (applies to [facility]GEN RNA,QN,RE non-numeric ([place] TIME results) Medical PCR Service) ID Date Data Source [id number] 09/26/2017 12:00:00 AM EDT [facility] ([facility]) Name Value Range Interpretation Description Data Sup porting Code Source(s) Document(s ) VITAMIN D 17.84 Below low normal MEDGEN 25-HYDROXY ng/mL ([facility] Service) ID Date Data Source [id number] 09/26/2017 12:00:00 AM EDT [facility] ([facility]) Name Value Range Interpretation Description Data Sup porting Code Source(s) Document(s ) VITAMIN B12 278 pg/mL Normal (applies to MEDGEN non-numeric ([place] results) Medical Service) ID Date Data Source [id number] 09/26/2017 12:00:00 AM EDT [facility] ([facility]) Name Value Range Interpretation Description Data Sup porting Code Source(s) Document(s ) FOLATE 13.7 ng/mL Above high normal MEDGEN SERUM ([place] [facility]) ID Date Data Source [id number] 09/26/2017 12:00:00 AM EDT [facility] ([facility]) Name Value Range Interpretation Description Data Sup porting Code Source(s) Document(s ) Cholesterol 124 Normal (applies MEDGEN [Moles/volume] mg/dL to non-numeric ([place] in Pericardial results) Medical fluid Service) LDL CALCULATION 67.2 Normal (applies [facility]GEN mg/dL to non-numeric ([place] results) Medical Service) CHOL/HDL RATIO 3.02 Normal (applies MEDGEN ratio to non-numeric ([place] results) Medical Service) HDL CHOLESTEROL 41 mg/dL Above high normal MED[facility] ([place] [facility]) VLDL CALCULATION 15.8 Normal (applies MEDGEN mg/dl to non-numeric ([place] results) Medical Service) TRIGLYCERIDES 79 mg/dL Normal (applies MEDGEN to non-numeric ([place] results) Medical Service) ID Date Data Source [id number] 09/26/2017 12:00:00 AM EDT [facility] ([facility]) Name Value Range Interpretation Description Data Sup porting Code Source(s) Document(s ) GLUCOSE 87 mg/dL Normal (applies MEDGEN NONFASTING,SERUM to non-numeric ([place] results) Medical Service) SODIUM, SERUM 143 Normal (applies MEDGEN mEq/L to non-numeric ([place] results) Medical Service) POTASSIUM, SERUM 4.4 Normal (applies [facility]GEN mEq/L to non-numeric ([place] results) Medical Service) CHLORIDE, SERUM 111 Above high normal MEDGEN mEq/L ([place] [facility]) Carbon dioxide 23 mEq/L Normal (applies MEDGEN [VFr/PPres] in to non-numeric ([place] [employer] results) Medical system Service) Anion gap in 13.4 Normal (applies MEDGEN Body fluid mEq/L to non-numeric ([place] results) Medical Service) BLOOD UREA 17 mg/dL Normal (applies MEDGEN NITROGEN to non-numeric ([place] results) Medical Service) CREATININE, 1.10 Normal (applies MEDGEN SERUM mg/dL to non-numeric ([place] results) Medical Service) CALCIUM, SERUM 8.8 Normal (applies MEDGEN mg/dL to non-numeric ([place] results) Medical Service) TOTAL PROTEIN 7.0 g/dL Normal (applies MEDGEN to non-numeric ([place] results) Medical Service) Microalbumin 4.2 g/dL Normal (applies MEDGEN [Mass/time] in to non-numeric ([place] Urine collected results) Medical for unspecified Service) duration Globulin 2.8 gldl Normal (applies MEDGEN [Mass/time] in to non-numeric ([place] 24 hour Urine results) Medical Service) A/G RATIO 1.50 Normal (applies MEDGEN g/dl to non-numeric ([place] results) Medical Service) BILIRUBIN, TOTAL 1.0 Normal (applies MEDGEN mg/dL to non-numeric ([place] results) Medical Service) ALKALINE 92 U/L Normal (applies MEDGEN PHOSPHATASE, ALP to non-numeric ([facility] y results) Medical Service) ALT (SGPT) 58 U/L Above high normal MED[facility] ([place] [facility]) AST 57 U/L Above high normal MED[facility] ([place] [facility]) EGFR NON AFR 73 Above high normal MEDGEN ICELANDIC mL/min/1 ([place] .73m2 Medical Service) EGFR AFR 88 Above high normal MEDGEN ICELANDIC mL/min/1 ([place] .73m2 Medical Service) ID Date Data Source [id number] 09/26/2017 12:00:00 AM EDT [facility] ([facility]) Name Value Range Interpretation Code Description Data Libra rce(s) Supporting Document(s ) URIC ACID 6.9 mg/dL Normal (applies to MEDGEN non-numeric ([place] results) Medical Service) ID Date Data Source [id number] 09/26/2017 12:00:00 AM EDT [facility] ([facility]) Name Value Range Interpretation Description Data Sup porting Code Source(s) Document(s ) WBC 6.1 Normal (applies to MEDGEN 10(3)/uL non-numeric ([place] results) Medical Service) RBC 5.3 Normal (applies to MEDGEN 10(6)/uL non-numeric ([place] results) Medical Service) Hemoglobin 16.0 g/dL Normal (applies to MEDGEN [Mass/volume] non-numeric ([place] in Mixed results) Medical venous blood Service) by Oximetry Hematocrit 47.8 % Normal (applies to MEDGEN [Pure volume non-numeric ([place] fraction] of results) Medical Blood by Service) Automated count MCV 89.8 fL Normal (applies to MEDGEN non-numeric ([place] results) Medical Service) MCH 30 pg Normal (applies to MEDGEN non-numeric ([place] results) Medical Service) MCHC 34 g/dL Normal (applies to MEDGEN non-numeric ([place] results) Medical Service) RDWSD 44.3 fL Normal (applies to MEDGEN non-numeric ([place] results) Medical Service) RDWCV 13.7 % Normal (applies to MEDGEN non-numeric ([place] results) Medical Service) PLT 128 Below low normal MEDGEN 10(3)/uL ([place] [facility]) MPV 11.3 fL Normal (applies to MEDGEN non-numeric ([place] results) Medical Service) NE# 2.92 Normal (applies to MEDGEN 10(3)/uL non-numeric ([place] results) Medical Service) LY# 1.99 Normal (applies to MEDGEN 10(3)/uL non-numeric ([place] results) Medical Service) MO# 0.58 Normal (applies to MEDGEN 10(3)/uL non-numeric ([place] results) Medical Service) EO# 0.53 Above high normal MEDGEN 10(3)/uL ([place] [facility] Service) IG# 0.01 Normal (applies to MEDGEN 10(3)/uL non-numeric ([place] results) Medical Service) NE% 48.00 % Normal (applies to MEDGEN non-numeric ([place] results) Medical Service) LY% 33 % Normal (applies to MEDGEN non-numeric ([place] results) Medical Service) MO% 9.6 % Normal (applies to MEDGEN non-numeric ([place] results) Medical Service) EO% 8.7 % Above high normal MED[facility] ([place] [facility] Service) BA% 0.7 % Normal (applies to MEDGEN non-numeric ([place] results) Medical Service) IG% 0.20 % Normal (applies to MEDGEN non-numeric ([place] results) Medical Service) ID Date Data Source [id number] 09/26/2017 12:00:00 AM EDT [facility] ([facility]) Name Value Range Interpretation Code Description Data Supporting Source(s) Document(s ) GLYCOMARK 11.21 Normal (applies to MEDGEN ug/mL non-numeric ([place] results) Medical Service) ID Date Data Source [id number] 09/26/2017 12:00:00 AM EDT [facility] ([facility]) Name Value Range Interpretation Description Data Sup porting Code Source(s) Document(s ) Hemoglobin A1c 5.5 % Normal (applies to MEDGEN in Blood non-numeric ([place] results) Medical Service) ID Date Data Source [id number] 09/26/2017 12:00:00 AM EDT [facility] ([facility]) Name Value Range Interpretation Description Data Sup porting Code Source(s) Document(s ) HEPATITIS BE NONREACTIVE Normal (applies MEDGEN AG to non-numeric ([place] results) Medical Service) ID Date Data Source [id number] 09/26/2017 12:00:00 AM EDT [facility] ([facility]) Name Value Range Interpretation Description Data Sup porting Code Source(s) Document(s ) HEPATITIS B <3.10 Normal (applies to MEDGEN SURFACE AB (NONREACT non-numeric ([place] MONTSE) results) Medical Service) ID Date Data Source [id number] 09/26/2017 12:00:00 AM EDT [facility] ([facility]) Name Value Range Interpretation Description Data Sup porting Code Source(s) Document(s ) HEPATITIS B REACTIVE Normal (applies to MEDGEN CORE AB QL non-numeric ([place] results) Medical Service) ID Date Data Source [id number] 09/26/2017 12:00:00 AM EDT [facility] ([facility]) Name Value Range Interpretation Description Data Sup porting Code Source(s) Document(s ) HEPATITIS C REACTIVE Normal (applies to MEDGEN AB QL non-numeric ([place] results) Medical Service) ID Date Data Source [id number] 09/26/2017 12:00:00 AM EDT [facility] ([facility]) Name Value Range Interpretation Code Description Data Libra rce(s) Supporting Document(s ) HBeAB Eqv Normal (applies to [facility] ([place] non-numeric results) Medical S ervice) ID Date Data Source [id number] 09/26/2017 12:00:00 AM EDT [facility] ([facility]) Name Value Range Interpretation Description Data Sup porting Code Source(s) Document(s ) HEPATITIS BS NONREACTIVE Normal (applies MEDGEN AG SCREEN to non-numeric ([place] results) Medical Service) ID Date Data Source [id number] 09/26/2017 12:00:00 AM EDT [facility] ([facility]) Name Value Range Interpretation Description Data Sup porting Code Source(s) Document(s ) HEPATITIS A REACTIVE Normal (applies to MEDGEN AB non-numeric ([place] results) Medical Service) ID Date Data Source [id number] 09/26/2017 12:00:00 AM EDT [facility] ([facility]) Name Value Range Interpretation Description Data Sup porting Code Source(s) Document(s ) TSH,3RD 1.08 Normal (applies to MEDGEN GENERATION uIU/mL non-numeric ([place] results) Medical Service) T4 TOTAL 11.8 Above high normal [facility] THYROXINE ug/dL ([place] [facility]) T3 TOTAL 169 ng/dL Normal (applies to MEDGEN non-numeric ([place] results) Medical Service) ID Date Data Source [id number] 09/26/2017 12:00:00 AM EDT [facility] ([facility]) Name Value Range Interpretation Description Data Sup porting Code Source(s) Document(s ) HEPATITIS NONREACTIVE Normal (applies MEDGEN A(IGM) to non-numeric ([place] results) Medical Service) ID Date Data Source [id number] 09/26/2017 12:00:00 AM EDT [facility] ([facility]) Name Value Range Interpretation Code Description Data Libra rce(s) Supporting Document(s ) HCV SEE NOTE Normal (applies to [facility] RNA,QN,RE non-numeric ([place] TIME results) Medical PCR Service) HCV SEE NOTE Normal (applies to MEDGEN RNA,QN,RE non-numeric ([place] TIME results) Medical PCR Service) ID Date Data Source [id number] 09/26/2017 12:00:00 AM EDT [facility] ([facility]) Name Value Range Interpretation Description Data Sup porting Code Source(s) Document(s ) VITAMIN D 17.84 Below low normal MED[facility] 25-HYDROXY ng/mL ([facility] Service) ID Date Data Source [id number] 09/26/2017 12:00:00 AM EDT [facility] ([facility]) Name Value Range Interpretation Description Data Sup porting Code Source(s) Document(s ) VITAMIN B12 278 pg/mL Normal (applies to MEDGEN non-numeric ([place] results) Medical Service) ID Date Data Source [id number] 09/26/2017 12:00:00 AM EDT [facility] ([facility]) Name Value Range Interpretation Description Data Sup porting Code Source(s) Document(s ) FOLATE 13.7 ng/mL Above high normal MEDGEN SERUM ([place] [facility]) ID Date Data Source [id number] 09/26/2017 12:00:00 AM EDT [facility] ([facility]) Name Value Range Interpretation Description Data Sup porting Code Source(s) Document(s ) Cholesterol 124 Normal (applies MEDGEN [Moles/volume] mg/dL to non-numeric ([place] in Pericardial results) Medical fluid Service) LDL CALCULATION 67.2 Normal (applies MEDGEN mg/dL to non-numeric ([place] results) Medical Service) HDL CHOLESTEROL 41 mg/dL Above high normal [facility] ([place] [facility]) CHOL/HDL RATIO 3.02 Normal (applies MEDGEN ratio to non-numeric ([place] results) Medical Service) VLDL CALCULATION 15.8 Normal (applies MEDGEN mg/dl to non-numeric ([place] results) Medical Service) TRIGLYCERIDES 79 mg/dL Normal (applies MEDGEN to non-numeric ([place] results) Medical Service) ID Date Data Source [id number] 09/26/2017 12:00:00 AM EDT [facility] ([facility]) Name Value Range Interpretation Description Data Sup porting Code Source(s) Document(s ) GLUCOSE 87 mg/dL Normal (applies MEDGEN NONFASTING,SERUM to non-numeric ([place] results) Medical Service) SODIUM, SERUM 143 Normal (applies MEDGEN mEq/L to non-numeric ([place] results) Medical Service) POTASSIUM, SERUM 4.4 Normal (applies MEDGEN mEq/L to non-numeric ([place] results) Medical Service) CHLORIDE, SERUM 111 Above high normal MEDGEN mEq/L ([place] [facility]) Carbon dioxide 23 mEq/L Normal (applies MEDGEN [VFr/PPres] in to non-numeric ([place] [employer] results) Medical system Service) Anion gap in 13.4 Normal (applies MEDGEN Body fluid mEq/L to non-numeric ([place] results) Medical Service) BLOOD UREA 17 mg/dL Normal (applies MEDGEN NITROGEN to non-numeric ([place] results) Medical Service) CREATININE, 1.10 Normal (applies MEDGEN SERUM mg/dL to non-numeric ([place] results) Medical Service) CALCIUM, SERUM 8.8 Normal (applies MEDGEN mg/dL to non-numeric ([place] results) Medical Service) TOTAL PROTEIN 7.0 g/dL Normal (applies MEDGEN to non-numeric ([place] results) Medical Service) Microalbumin 4.2 g/dL Normal (applies MEDGEN [Mass/time] in to non-numeric ([place] Urine collected results) Medical for unspecified Service) duration Globulin 2.8 gldl Normal (applies MEDGEN [Mass/time] in to non-numeric ([place] 24 hour Urine results) Medical Service) A/G RATIO 1.50 Normal (applies MEDGEN g/dl to non-numeric ([place] results) Medical Service) BILIRUBIN, TOTAL 1.0 Normal (applies MEDGEN mg/dL to non-numeric ([place] results) Medical Service) ALKALINE 92 U/L Normal (applies MEDGEN PHOSPHATASE, ALP to non-numeric ([facility] y results) Medical Service) ALT (SGPT) 58 U/L Above high normal MED[facility] ([place] [facility]) AST 57 U/L Above high normal MED[facility] ([place] [facility]) EGFR NON AFR 73 Above high normal MEDGEN ICELANDIC mL/min/1 ([place] .73m2 Medical Service) EGFR AFR 88 Above high normal MEDGEN ICELANDIC mL/min/1 ([place] .73m2 Medical Service) ID Date Data Source [id number] 09/26/2017 12:00:00 AM EDT [facility] ([facility]) Name Value Range Interpretation Code Description Data Libra rce(s) Supporting Document(s ) URIC ACID 6.9 mg/dL Normal (applies to MEDGEN non-numeric ([place] results) Medical Service) ID Date Data Source [id number] 09/26/2017 12:00:00 AM EDT [facility] ([facility] [place]) Name Value Range Interpretation Description Data Sup porting Code Source(s) Document(s ) WBC 6.1 Normal (applies to MEDGEN 10(3)/uL non-numeric ([place] results) Medical Service) RBC 5.3 Normal (applies to MEDGEN 10(6)/uL non-numeric ([place] results) Medical Service) Hemoglobin 16.0 g/dL Normal (applies to MEDGEN [Mass/volume] non-numeric ([place] in Mixed results) Medical venous blood Service) by Oximetry Hematocrit 47.8 % Normal (applies to MEDGEN [Pure volume non-numeric ([place] fraction] of results) Medical Blood by Service) Automated count MCV 89.8 fL Normal (applies to MEDGEN non-numeric ([place] results) Medical Service) MCH 30 pg Normal (applies to MEDGEN non-numeric ([place] results) Medical Service) MCHC 34 g/dL Normal (applies to MEDGEN non-numeric ([place] results) Medical Service) RDWSD 44.3 fL Normal (applies to MEDGEN non-numeric ([place] results) Medical Service) PLT 128 Below low normal MEDGEN 10(3)/uL ([place] [facility]) RDWCV 13.7 % Normal (applies to MEDGEN non-numeric ([place] results) Medical Service) MPV 11.3 fL Normal (applies to MEDGEN non-numeric ([place] results) Medical Service) NE# 2.92 Normal (applies to MEDGEN 10(3)/uL non-numeric ([place] results) Medical Service) LY# 1.99 Normal (applies to MEDGEN 10(3)/uL non-numeric ([place] results) Medical Service) MO# 0.58 Normal (applies to MEDGEN 10(3)/uL non-numeric ([place] results) Medical Service) EO# 0.53 Above high normal MEDGEN 10(3)/uL ([place] [facility]) IG# 0.01 Normal (applies to MEDGEN 10(3)/uL non-numeric ([place] results) Medical Service) NE% 48.00 % Normal (applies to MEDGEN non-numeric ([place] results) Medical Service) LY% 33 % Normal (applies to MEDGEN non-numeric ([place] results) Medical Service) MO% 9.6 % Normal (applies to MEDGEN non-numeric ([place] results) Medical Service) EO% 8.7 % Above high normal [facility] ([place] [facility]) BA% 0.7 % Normal (applies to MEDGEN non-numeric ([place] results) Medical Service) IG% 0.20 % Normal (applies to MEDGEN non-numeric ([place] results) Medical Service) ID Date Data Source [id number] 09/26/2017 12:00:00 AM EDT [facility] ([facility]) Name Value Range Interpretation Code Description Data Supporting Source(s) Document(s ) GLYCOMARK 11.21 Normal (applies to MEDGEN ug/mL non-numeric ([place] results) Medical Service) ID Date Data Source [id number] 09/26/2017 12:00:00 AM EDT [facility] ([facility]) Name Value Range Interpretation Description Data Sup porting Code Source(s) Document(s ) Hemoglobin A1c 5.5 % Normal (applies to MEDGEN in Blood non-numeric ([place] results) Medical Service) ID Date Data Source [id number] 09/26/2017 12:00:00 AM EDT MED[facility] [place] [facility]) Name Value Range Interpretation Description Data Sup porting Code Source(s) Document(s ) HEPATITIS BE NONREACTIVE Normal (applies MEDGEN AG to non-numeric ([place] results) Medical Service) ID Date Data Source [id number] 09/26/2017 12:00:00 AM EDT [facility] ([facility]) Name Value Range Interpretation Description Data Sup porting Code Source(s) Document(s ) HEPATITIS B <3.10 Normal (applies to MEDGEN SURFACE AB (NONREACT non-numeric ([place] MONTSE) results) Medical Service) ID Date Data Source [id number] 09/26/2017 12:00:00 AM EDT MED[facility]) Name Value Range Interpretation Description Data Sup porting Code Source(s) Document(s ) HEPATITIS B REACTIVE Normal (applies to MEDGEN CORE AB QL non-numeric ([place] results) Medical Service) ID Date Data Source [id number] 09/26/2017 12:00:00 AM EDT MED[facility]) Name Value Range Interpretation Description Data Sup porting Code Source(s) Document(s ) HEPATITIS C REACTIVE Normal (applies to MEDGEN AB QL non-numeric ([place] results) Medical Service) ID Date Data Source [id number] 09/26/2017 12:00:00 AM EDT MED[facility]) Name Value Range Interpretation Code Description Data Libra rce(s) Supporting Document(s ) HBeAB Eqv Normal (applies to [facility] ([place] non-numeric results) Medical S ervice) ID Date Data Source [id number] 09/26/2017 12:00:00 AM EDT [facility] ([facility]) Name Value Range Interpretation Description Data Sup porting Code Source(s) Document(s ) HEPATITIS BS NONREACTIVE Normal (applies MEDGEN AG SCREEN to non-numeric ([place] results) Medical Service) ID Date Data Source [id number] 09/26/2017 12:00:00 AM EDT [facility] ([facility]) Name Value Range Interpretation Description Data Sup porting Code Source(s) Document(s ) HEPATITIS A REACTIVE Normal (applies to MEDGEN AB non-numeric ([place] results) Medical Service) ID Date Data Source [id number] 09/26/2017 12:00:00 AM EDT [facility] ([facility]) Name Value Range Interpretation Description Data Sup porting Code Source(s) Document(s ) TSH,3RD 1.08 Normal (applies to MED[facility] GENERATION uIU/mL non-numeric ([place] results) Medical Service) T4 TOTAL 11.8 Above high normal [facility] THYROXINE ug/dL ([place] [facility]) T3 TOTAL 169 ng/dL Normal (applies to MEDGEN non-numeric ([place] results) Medical Service) ID Date Data Source [id number] 09/26/2017 12:00:00 AM EDT [facility] ([facility]) Name Value Range Interpretation Description Data Sup porting Code Source(s) Document(s ) HEPATITIS NONREACTIVE Normal (applies MEDGEN A(IGM) to non-numeric ([place] results) Medical Service) ID Date Data Source [id number] 09/26/2017 12:00:00 AM EDT [facility] ([facility]) Name Value Range Interpretation Code Description Data Libra rce(s) Supporting Document(s ) HCV SEE NOTE Normal (applies to MEDGEN RNA,QN,RE non-numeric ([place] TIME results) Medical PCR Service) HCV SEE NOTE Normal (applies to MEDGEN RNA,QN,RE non-numeric ([place] TIME results) Medical PCR Service) ID Date Data Source [id number] 09/26/2017 12:00:00 AM EDT [facility] ([facility]) Name Value Range Interpretation Description Data Sup porting Code Source(s) Document(s ) VITAMIN D 17.84 Below low normal MEDGEN 25-HYDROXY ng/mL ([facility]) ID Date Data Source [id number] 09/26/2017 12:00:00 AM EDT [facility] ([facility]) Name Value Range Interpretation Description Data Sup porting Code Source(s) Document(s ) VITAMIN B12 278 pg/mL Normal (applies to MEDGEN non-numeric ([place] results) Medical Service) ID Date Data Source [id number] 09/26/2017 12:00:00 AM EDT [facility] ([facility]) Name Value Range Interpretation Description Data Sup porting Code Source(s) Document(s ) FOLATE 13.7 ng/mL Above high normal MEDGEN SERUM ([place] [facility]) ID Date Data Source [id number] 09/26/2017 12:00:00 AM EDT [facility] ([facility]) Name Value Range Interpretation Description Data Sup porting Code Source(s) Document(s ) Cholesterol 124 Normal (applies MEDGEN [Moles/volume] mg/dL to non-numeric ([place] in Pericardial results) Medical fluid Service) LDL CALCULATION 67.2 Normal (applies MEDGEN mg/dL to non-numeric ([place] results) Medical Service) CHOL/HDL RATIO 3.02 Normal (applies MEDGEN ratio to non-numeric ([place] results) Medical Service) HDL CHOLESTEROL 41 mg/dL Above high normal [facility] ([place] [facility]) VLDL CALCULATION 15.8 Normal (applies MEDGEN mg/dl to non-numeric ([place] results) Medical Service) TRIGLYCERIDES 79 mg/dL Normal (applies MEDGEN to non-numeric ([place] results) Medical Service) ID Date Data Source [id number] 09/26/2017 12:00:00 AM EDT [facility] ([facility]) Name Value Range Interpretation Description Data Sup porting Code Source(s) Document(s ) GLUCOSE 87 mg/dL Normal (applies MEDGEN NONFASTING,SERUM to non-numeric ([place] results) Medical Service) SODIUM, SERUM 143 Normal (applies MEDGEN mEq/L to non-numeric ([place] results) Medical Service) POTASSIUM, SERUM 4.4 Normal (applies MEDGEN mEq/L to non-numeric ([place] results) Medical Service) CHLORIDE, SERUM 111 Above high normal MEDGEN mEq/L ([place] [facility]) Carbon dioxide 23 mEq/L Normal (applies MEDGEN [VFr/PPres] in to non-numeric ([place] Gas delivery results) Medical system Service) Anion gap in 13.4 Normal (applies MEDGEN Body fluid mEq/L to non-numeric ([place] results) Medical Service) BLOOD UREA 17 mg/dL Normal (applies MEDGEN NITROGEN to non-numeric ([place] results) Medical Service) CREATININE, 1.10 Normal (applies MEDGEN SERUM mg/dL to non-numeric ([place] results) Medical Service) CALCIUM, SERUM 8.8 Normal (applies MEDGEN mg/dL to non-numeric ([place] results) Medical Service) TOTAL PROTEIN 7.0 g/dL Normal (applies MEDGEN to non-numeric ([place] results) Medical Service) Microalbumin 4.2 g/dL Normal (applies MEDGEN [Mass/time] in to non-numeric ([place] Urine collected results) Medical for unspecified Service) duration Globulin 2.8 gldl Normal (applies MEDGEN [Mass/time] in to non-numeric ([place] 24 hour Urine results) Medical Service) A/G RATIO 1.50 Normal (applies MEDGEN g/dl to non-numeric ([place] results) Medical Service) BILIRUBIN, TOTAL 1.0 Normal (applies MEDGEN mg/dL to non-numeric ([place] results) Medical Service) ALKALINE 92 U/L Normal (applies MEDGEN PHOSPHATASE, ALP to non-numeric ([facility] y results) Medical Service) ALT (SGPT) 58 U/L Above high normal MEDGEN ([place] [facility]) AST 57 U/L Above high normal MEDGEN ([place] [facility]) EGFR NON AFR 73 Above high normal MEDGEN ICELANDIC mL/min/1 ([place] .73m2 Medical Service) EGFR AFR 88 Above high normal MEDGEN ICELANDIC mL/min/1 ([place] .73m2 Medical Service) ID Date Data Source [id number] 09/26/2017 12:00:00 AM EDT [facility] [place] [facility] Name Value Range Interpretation Code Description Data Libra rce(s) Supporting Document(s ) URIC ACID 6.9 mg/dL Normal (applies to MEDGEN non-numeric ([place] results) Medical Service) ID Date Data Source [id number] 09/26/2017 12:00:00 AM EDT [facility] ([facility] [place] [facility]) Name Value Range Interpretation Description Data Sup porting Code Source(s) Document(s ) WBC 6.1 Normal (applies to MEDGEN 10(3)/uL non-numeric ([place] results) Medical Service) RBC 5.3 Normal (applies to MEDGEN 10(6)/uL non-numeric ([place] results) Medical Service) Hemoglobin 16.0 g/dL Normal (applies to MEDGEN [Mass/volume] non-numeric ([place] in Mixed results) Medical venous blood Service) by Oximetry Hematocrit 47.8 % Normal (applies to MEDGEN [Pure volume non-numeric ([place] fraction] of results) Medical Blood by Service) Automated count MCV 89.8 fL Normal (applies to MEDGEN non-numeric ([place] results) Medical Service) MCH 30 pg Normal (applies to MEDGEN non-numeric ([place] results) Medical Service) MCHC 34 g/dL Normal (applies to MEDGEN non-numeric ([place] results) Medical Service) RDWSD 44.3 fL Normal (applies to MEDGEN non-numeric ([place] results) Medical Service) RDWCV 13.7 % Normal (applies to MEDGEN non-numeric ([place] results) Medical Service) PLT 128 Below low normal MEDGEN 10(3)/uL ([place] [facility]) MPV 11.3 fL Normal (applies to MEDGEN non-numeric ([place] results) Medical Service) NE# 2.92 Normal (applies to MEDGEN 10(3)/uL non-numeric ([place] results) Medical Service) LY# 1.99 Normal (applies to MEDGEN 10(3)/uL non-numeric ([place] results) Medical Service) MO# 0.58 Normal (applies to MEDGEN 10(3)/uL non-numeric ([place] results) Medical Service) EO# 0.53 Above high normal MEDGEN 10(3)/uL ([place] [facility] Service) IG# 0.01 Normal (applies to MEDGEN 10(3)/uL non-numeric ([place] results) Medical Service) NE% 48.00 % Normal (applies to MEDGEN non-numeric ([place] results) Medical Service) LY% 33 % Normal (applies to MEDGEN non-numeric ([place] results) Medical Service) MO% 9.6 % Normal (applies to MEDGEN non-numeric ([place] results) Medical Service) EO% 8.7 % Above high normal MEDGEN ([place] [facility] Service) BA% 0.7 % Normal (applies to MEDGEN non-numeric ([place] results) Medical Service) IG% 0.20 % Normal (applies to MEDGEN non-numeric ([place] results) Medical Service) ID Date Data Source [id number] 09/26/2017 12:00:00 AM EDT [facility] ([facility]) Name Value Range Interpretation Code Description Data Supporting Source(s) Document(s ) GLYCOMARK 11.21 Normal (applies to MEDGEN ug/mL non-numeric ([place] results) Medical Service) ID Date Data Source [id number] 09/26/2017 12:00:00 AM EDT MEDGEN [facility]) Name Value Range Interpretation Description Data Sup porting Code Source(s) Document(s ) Hemoglobin A1c 5.5 % Normal (applies to MEDGEN in Blood non-numeric ([place] results) Medical Service) ID Date Data Source [id number] 09/26/2017 12:00:00 AM EDT MEDGEN [facility] [place] [facility]) Name Value Range Interpretation Description Data Sup porting Code Source(s) Document(s ) HEPATITIS BE NONREACTIVE Normal (applies MEDGEN AG to non-numeric ([place] results) Medical Service) ID Date Data Source [id number] 09/26/2017 12:00:00 AM EDT MED[facility] ([facility]) Name Value Range Interpretation Description Data Sup porting Code Source(s) Document(s ) HEPATITIS B <3.10 Normal (applies to MEDGEN SURFACE AB (NONREACT non-numeric ([place] MONTSE) results) Medical Service) ID Date Data Source [id number] 09/26/2017 12:00:00 AM EDT MEDGEN [facility] Medical [facility]) Name Value Range Interpretation Description Data Sup porting Code Source(s) Document(s ) HEPATITIS B REACTIVE Normal (applies to MEDGEN CORE AB QL non-numeric ([place] results) Medical Service) ID Date Data Source [id number] 09/26/2017 12:00:00 AM EDT MEDGEN [facility]) Name Value Range Interpretation Description Data Sup porting Code Source(s) Document(s ) HEPATITIS C REACTIVE Normal (applies to MEDGEN AB QL non-numeric ([place] results) Medical Service) ID Date Data Source [id number] 09/26/2017 12:00:00 AM EDT MED[facility] ([facility]) Name Value Range Interpretation Code Description Data Libra rce(s) Supporting Document(s ) HBeAB Eqv Normal (applies to MEDGEN ([place] non-numeric results) Medical S ervice) ID Date Data Source [id number] 09/26/2017 12:00:00 AM EDT MEDGEN ([facility]) Name Value Range Interpretation Description Data Sup porting Code Source(s) Document(s ) HEPATITIS BS NONREACTIVE Normal (applies MEDGEN AG SCREEN to non-numeric ([place] results) Medical Service) ID Date Data Source [id number] 09/26/2017 12:00:00 AM EDT MEDGEN [facility]) Name Value Range Interpretation Description Data Sup porting Code Source(s) Document(s ) HEPATITIS A REACTIVE Normal (applies to MEDGEN AB non-numeric ([place] results) Medical Service) ID Date Data Source [id number] 09/26/2017 12:00:00 AM EDT MED[facility]) Name Value Range Interpretation Description Data Sup porting Code Source(s) Document(s ) TSH,3RD 1.08 Normal (applies to MEDGEN GENERATION uIU/mL non-numeric ([place] results) Medical Service) T4 TOTAL 11.8 Above high normal MEDGEN THYROXINE ug/dL ([place] [facility]) T3 TOTAL 169 ng/dL Normal (applies to MEDGEN non-numeric ([place] results) Medical Service) ID Date Data Source [id number] 09/21/2017 12:00:00 AM EDT MED[facility] ([facility]) Name Value Range Interpretation Description Data Sup porting Code Source(s) Document(s ) FISH,VYSIS Specimen# Normal (applies to MEDGEN UROVYSION [id number] non-numeric ([place] 665 results) Medical Service) ID Date Data Source [id number] 09/21/2017 12:00:00 AM EDT MEDGEN [facility]) Name Value Range Interpretation Description Data Sup porting Code Source(s) Document(s ) FISH,VYSIS Specimen# Normal (applies to MEDGEN UROVYSION [id number] non-numeric ([place] 665 results) Medical Service) ID Date Data Source [id number] 09/21/2017 12:00:00 AM EDT MEDGEN ([facility] [place] [facility]) Name Value Range Interpretation Description Data Sup porting Code Source(s) Document(s ) FISH,VYSIS Specimen# Normal (applies to MEDGEN UROVYSION [id number] non-numeric ([place] 665 results) Medical Service) ID Date Data Source [id number] 09/21/2017 12:00:00 AM EDT [facility] ([facility]) Name Value Range Interpretation Description Data Sup porting Code Source(s) Document(s ) FISH,VYSIS Specimen# Normal (applies to MEDGEN UROVYSION [id number] non-numeric ([place] 665 results) Medical Service) ID Date Data Source [id number] 09/21/2017 12:00:00 AM EDT MEDGEN ([facility] [place] [facility]) Name Value Range Interpretation Description Data Sup porting Code Source(s) Document(s ) FISH,VYSIS Specimen# Normal (applies to MEDGEN UROVYSION [id number] non-numeric ([place] 665 results) Medical Service) ID Date Data Source [id number] 09/20/2017 12:00:00 AM EDT MEDGEN ([facility]) Name Value Range Interpretation Description Data Sup porting Code Source(s) Document(s ) ORGANISM Normal (applies MEDGEN to non-numeric ([place] results) Medical Service) Comment Normal (applies MEDGEN [Interpretation] to non-numeric ([place] Left eye Narrative results) Medical Ophthalmometer Service) ID Date Data Source [id number] 09/20/2017 12:00:00 AM EDT MED[facility] ([facility]) Name Value Range Interpretation Code Description Data Libra rce(s) Supporting Document(s ) ID Date Data Source [id number] 09/20/2017 12:00:00 AM EDT MED[facility] ([facility]) Name Value Range Interpretation Description Data Sup porting Code Source(s) Document(s ) MICROALBUMIN 14.2 Normal (applies MEDGEN URINE mg/dL to non-numeric ([place] results) Medical Service) ID Date Data Source [id number] 09/20/2017 12:00:00 AM EDT MED[facility] ([facility]) Name Value Range Interpretation Description Data Sup porting Code Source(s) Document(s ) GLUCOSE UA NEGATIVE Normal (applies MEDGEN to non-numeric ([place] results) Medical Service) BILIRUBIN, TOTAL NEGATIVE Normal (applies MEDGEN to non-numeric ([place] results) Medical Service) Ketones NEGATIVE Normal (applies MEDGEN [Presence] in to non-numeric ([place] Blood by Tablet results) Medical Service) Specific gravity 1.029 SG Normal (applies MEDGEN of Pericardial units to non-numeric ([place] fluid by results) Medical Refractometry Service) Blood [Presence] LARGE Normal (applies MEDGEN in Urine by to non-numeric ([place] Visual results) Medical Service) pH of Lower 5 Ph units Normal (applies MEDGEN respiratory to non-numeric ([place] specimen results) Medical Service) Protein 30 mg/dL Normal (applies MEDGEN [Mass/volume] in to non-numeric [facility] Medical respiratory Service) specimen Urobilinogen 0-2.0 Normal (applies MEDGEN [Presence] in to non-numeric ([place] Urine by results) Medical Automated test Service) strip Nitrite NEGATIVE Normal (applies MEDGEN [Presence] in to non-numeric ([place] Urine by Test results) Medical strip Service) Leukocyte NEGATIVE Normal (applies MEDGEN esterase to non-numeric ([place] [Presence] in results) Medical Body fluid by Service) Automated test strip Color of PIA Normal (applies MEDGEN Peritoneal to non-numeric ([place] dialysis fluid results) Medical Service) TRANSPARENCY CLOUDY Normal (applies MEDGEN to non-numeric ([place] results) Medical Service) RBC`S >50 Above high MEDGEN normal ([place] [facility] Service) SQUAMOUS FEW Normal (applies MEDGEN EPITHELIAL to non-numeric ([place] results) Medical Service) MUCOUS FEW Normal (applies MEDGEN to non-numeric ([place] results) Medical Service) Calcium Oxalate FEW Normal (applies MEDGEN Crystal to non-numeric ([place] results) Medical Service) ID Date Data Source [id number] 09/20/2017 12:00:00 AM EDT [facility] ([facility]) Name Value Range Interpretation Description Data Sup porting Code Source(s) Document(s ) ORGANISM Normal (applies MEDGEN to non-numeric ([place] results) Medical Service) Comment Normal (applies MED[facility] [Interpretation] to non-numeric [facility] Medical Ophthalmometer Service) ID Date Data Source [id number] 09/20/2017 12:00:00 AM EDT [facility] ([facility]) Name Value Range Interpretation Code Description Data Libra rce(s) Supporting Document(s ) ID Date Data Source [id number] 09/20/2017 12:00:00 AM EDT [facility] ([facility]) Name Value Range Interpretation Description Data Sup porting Code Source(s) Document(s ) MICROALBUMIN 14.2 Normal (applies MEDGEN URINE mg/dL to non-numeric ([place] results) Medical Service) ID Date Data Source [id number] 09/20/2017 12:00:00 AM EDT MEDGEN ([facility] [place] [facility]) Name Value Range Interpretation Description Data Sup porting Code Source(s) Document(s ) GLUCOSE UA NEGATIVE Normal (applies MEDGEN to non-numeric ([place] results) Medical Service) BILIRUBIN, TOTAL NEGATIVE Normal (applies MEDGEN to non-numeric ([place] results) Medical Service) Ketones NEGATIVE Normal (applies MEDGEN [Presence] in to non-numeric ([place] Blood by Tablet results) Medical Service) Specific gravity 1.029 SG Normal (applies MEDGEN of Pericardial units to non-numeric ([place] fluid by results) Medical Refractometry Service) Blood [Presence] LARGE Normal (applies MEDGEN in Urine by to non-numeric ([place] Visual results) Medical Service) pH of Lower 5 Ph units Normal (applies MEDGEN respiratory to non-numeric ([place] specimen results) Medical Service) Protein 30 mg/dL Normal (applies MEDGEN [Mass/volume] in to non-numeric [facility] Medical respiratory Service) specimen Urobilinogen 0-2.0 Normal (applies MEDGEN [Presence] in to non-numeric ([place] Urine by results) Medical Automated test Service) strip Nitrite NEGATIVE Normal (applies MEDGEN [Presence] in to non-numeric ([place] Urine by Test results) Medical strip Service) Leukocyte NEGATIVE Normal (applies MEDGEN esterase to non-numeric ([place] [Presence] in results) Medical Body fluid by Service) Automated test strip Color of PIA Normal (applies MEDGEN Peritoneal to non-numeric ([place] dialysis fluid results) Medical Service) TRANSPARENCY CLOUDY Normal (applies MEDGEN to non-numeric ([place] results) Medical Service) RBC`S >50 Above high MEDGEN normal ([place] [facility] Service) SQUAMOUS FEW Normal (applies MEDGEN EPITHELIAL to non-numeric ([place] results) Medical Service) MUCOUS FEW Normal (applies MEDGEN to non-numeric ([place] results) Medical Service) Calcium Oxalate FEW Normal (applies MEDGEN Crystal to non-numeric ([place] results) Medical Service) ID Date Data Source [id number] 09/20/2017 12:00:00 AM EDT MED[facility] ([facility] [place] [facility]) Name Value Range Interpretation Description Data Sup porting Code Source(s) Document(s ) ORGANISM Normal (applies MEDGEN to non-numeric ([place] results) Medical Service) Comment Normal (applies MEDGEN [Interpretation] to non-numeric [facility]) Medical Ophthalmometer Service) ID Date Data Source [id number] 09/20/2017 12:00:00 AM EDT MED[facility] ([facility]) Name Value Range Interpretation Code Description Data Libra rce(s) Supporting Document(s ) ID Date Data Source [id number] 09/20/2017 12:00:00 AM EDT MED[facility] ([facility]) Name Value Range Interpretation Description Data Sup porting Code Source(s) Document(s ) MICROALBUMIN 14.2 Normal (applies MEDGEN URINE mg/dL to non-numeric ([place] results) Medical Service) ID Date Data Source [id number] 09/20/2017 12:00:00 AM EDT MED[facility] ([facility]) Name Value Range Interpretation Description Data Sup porting Code Source(s) Document(s ) GLUCOSE UA NEGATIVE Normal (applies MEDGEN to non-numeric ([place] results) Medical Service) BILIRUBIN, TOTAL NEGATIVE Normal (applies MEDGEN to non-numeric ([place] results) Medical Service) Ketones NEGATIVE Normal (applies MEDGEN [Presence] in to non-numeric ([place] Blood by Tablet results) Medical Service) Specific gravity 1.029 SG Normal (applies MEDGEN of Pericardial units to non-numeric ([place] fluid by results) Medical Refractometry Service) Blood [Presence] LARGE Normal (applies MEDGEN in Urine by to non-numeric ([place] Visual results) Medical Service) pH of Lower 5 Ph units Normal (applies MEDGEN respiratory to non-numeric ([place] specimen results) Medical Service) Protein 30 mg/dL Normal (applies MEDGEN [Mass/volume] in to non-numeric ([place] Lower results) Medical respiratory Service) specimen Urobilinogen 0-2.0 Normal (applies MEDGEN [Presence] in to non-numeric ([place] Urine by results) Medical Automated test Service) strip Nitrite NEGATIVE Normal (applies MEDGEN [Presence] in to non-numeric ([place] Urine by Test results) Medical strip Service) Leukocyte NEGATIVE Normal (applies MEDGEN esterase to non-numeric ([place] [Presence] in results) Medical Body fluid by Service) Automated test strip Color of PIA Normal (applies MEDGEN Peritoneal to non-numeric ([place] dialysis fluid results) Medical Service) TRANSPARENCY CLOUDY Normal (applies MEDGEN to non-numeric ([place] results) Medical Service) RBC`S >50 Above high MEDGEN normal ([place] [facility] Service) SQUAMOUS FEW Normal (applies MEDGEN EPITHELIAL to non-numeric ([place] results) Medical Service) MUCOUS FEW Normal (applies MEDGEN to non-numeric ([place] results) Medical Service) Calcium Oxalate FEW Normal (applies MEDGEN Crystal to non-numeric ([place] results) Medical Service) ID Date Data Source [id number] 09/20/2017 12:00:00 AM EDT MED[facility] ([facility] [place] [facility]) Name Value Range Interpretation Code Description Data Libra rce(s) Supporting Document(s ) ID Date Data Source [id number] 09/20/2017 12:00:00 AM EDT MED[facility] ([facility] [place] [facility]) Name Value Range Interpretation Code Description Data Libra rce(s) Supporting Document(s ) ID Date Data Source [id number] 09/20/2017 12:00:00 AM EDT MED[facility] ([facility] [place] [facility]) Name Value Range Interpretation Description Data Sup porting Code Source(s) Document(s ) MICROALBUMIN 14.2 Normal (applies MEDGEN URINE mg/dL to non-numeric ([place] results) Medical Service) ID Date Data Source [id number] 09/20/2017 12:00:00 AM EDT MED[facility] ([facility] [place] [facility]) Name Value Range Interpretation Description Data Sup porting Code Source(s) Document(s ) GLUCOSE UA NEGATIVE Normal (applies MEDGEN to non-numeric ([place] results) Medical Service) BILIRUBIN, TOTAL NEGATIVE Normal (applies MEDGEN to non-numeric ([place] results) Medical Service) Ketones NEGATIVE Normal (applies MEDGEN [Presence] in to non-numeric ([place] Blood by Tablet results) Medical Service) Specific gravity 1.029 SG Normal (applies MEDGEN of Pericardial units to non-numeric ([place] fluid by results) Medical Refractometry Service) Blood [Presence] LARGE Normal (applies MEDGEN in Urine by to non-numeric ([place] Visual results) Medical Service) pH of Lower 5 Ph units Normal (applies MEDGEN respiratory to non-numeric ([place] specimen results) Medical Service) Protein 30 mg/dL Normal (applies MEDGEN [Mass/volume] in to non-numeric [facility] Medical respiratory Service) specimen Urobilinogen 0-2.0 Normal (applies MEDGEN [Presence] in to non-numeric ([place] Urine by results) Medical Automated test Service) strip Nitrite NEGATIVE Normal (applies MEDGEN [Presence] in to non-numeric ([place] Urine by Test results) Medical strip Service) Leukocyte NEGATIVE Normal (applies MEDGEN esterase to non-numeric ([place] [Presence] in results) Medical Body fluid by Service) Automated test strip Color of PIA Normal (applies MEDGEN Peritoneal to non-numeric ([place] dialysis fluid results) Medical Service) TRANSPARENCY CLOUDY Normal (applies MEDGEN to non-numeric ([place] results) Medical Service) RBC`S >50 Above high MEDGEN normal ([place] Medical Service) SQUAMOUS FEW Normal (applies MEDGEN EPITHELIAL to non-numeric ([place] results) Medical Service) MUCOUS FEW Normal (applies MEDGEN to non-numeric ([place] results) Medical Service) Calcium Oxalate FEW Normal (applies MEDGEN Crystal to non-numeric ([place] results) Medical Service) ID Date Data Source [id number] 09/20/2017 12:00:00 AM EDT [facility] ([facility]) Name Value Range Interpretation Description Data Sup porting Code Source(s) Document(s ) ORGANISM Normal (applies MEDGEN to non-numeric ([place] results) Medical Service) Comment Normal (applies MEDGEN [Interpretation] to non-numeric ([place] Left eye Narrative results) Medical Ophthalmometer Service) ID Date Data Source [id number] 09/20/2017 12:00:00 AM EDT [facility] ([facility]) Name Value Range Interpretation Code Description Data Libra rce(s) Supporting Document(s ) ID Date Data Source [id number] 09/20/2017 12:00:00 AM EDT [facility] ([facility]) Name Value Range Interpretation Description Data Sup porting Code Source(s) Document(s ) MICROALBUMIN 14.2 Normal (applies MEDGEN URINE mg/dL to non-numeric ([place] results) Medical Service) ID Date Data Source [id number] 09/20/2017 12:00:00 AM EDT MEDGEN ([facility]) Name Value Range Interpretation Description Data Sup porting Code Source(s) Document(s ) GLUCOSE UA NEGATIVE Normal (applies MEDGEN to non-numeric ([place] results) Medical Service) BILIRUBIN, TOTAL NEGATIVE Normal (applies MEDGEN to non-numeric ([place] results) Medical Service) Ketones NEGATIVE Normal (applies MEDGEN [Presence] in to non-numeric ([place] Blood by Tablet results) Medical Service) Specific gravity 1.029 SG Normal (applies MEDGEN of Pericardial units to non-numeric ([place] fluid by results) Medical Refractometry Service) Blood [Presence] LARGE Normal (applies MEDGEN in Urine by to non-numeric ([place] Visual results) Medical Service) pH of Lower 5 Ph units Normal (applies MEDGEN respiratory to non-numeric ([place] specimen results) Medical Service) Protein 30 mg/dL Normal (applies MEDGEN [Mass/volume] in to non-numeric [facility] Medical respiratory Service) specimen Urobilinogen 0-2.0 Normal (applies MEDGEN [Presence] in to non-numeric ([place] Urine by results) Medical Automated test Service) strip Nitrite NEGATIVE Normal (applies MEDGEN [Presence] in to non-numeric ([place] Urine by Test results) Medical strip Service) Leukocyte NEGATIVE Normal (applies MEDGEN esterase to non-numeric ([place] [Presence] in results) Medical Body fluid by Service) Automated test strip Color of PIA Normal (applies MEDGEN Peritoneal to non-numeric ([place] dialysis fluid results) Medical Service) TRANSPARENCY CLOUDY Normal (applies MEDGEN to non-numeric ([place] results) Medical Service) RBC`S >50 Above high MEDGEN normal ([place] [facility] Service) SQUAMOUS FEW Normal (applies MEDGEN EPITHELIAL to non-numeric ([place] results) Medical Service) MUCOUS FEW Normal (applies MEDGEN to non-numeric ([place] results) Medical Service) Calcium Oxalate FEW Normal (applies MEDGEN Crystal to non-numeric ([place] results) Medical Service) ID Date Data Source [id number] 05/18/2017 12:00:00 AM EST MEDGEN ([facility]) Name Value Range Interpretation Description Data Sup porting Code Source(s) Document(s ) VITAMIN D 11.43 Below low normal MEDGEN 25-HYDROXY ng/mL ([facility]) ID Date Data Source [id number] 05/18/2017 12:00:00 AM EST MEDGEN ([facility]) Name Value Range Interpretation Description Data Sup porting Code Source(s) Document(s ) VITAMIN B12 460 pg/mL Normal (applies to MEDGEN non-numeric ([place] results) Medical Service) ID Date Data Source [id number] 05/18/2017 12:00:00 AM EST MEDGEN ([facility]) Name Value Range Interpretation Description Data Sup porting Code Source(s) Document(s ) FOLATE 13.7 ng/mL Above high normal MEDGEN SERUM ([place] [facility]) ID Date Data Source [id number] 05/18/2017 12:00:00 AM EST MEDGEN ([facility]) Name Value Range Interpretation Description Data Sup porting Code Source(s) Document(s ) Cholesterol 168 Normal (applies MEDGEN [Moles/volume] mg/dL to non-numeric ([place] in Pericardial results) Medical fluid Service) LDL CALCULATION 75.4 Normal (applies MEDGEN mg/dL to non-numeric ([place] results) Medical Service) CHOL/HDL RATIO 4.31 Normal (applies MEDGEN ratio to non-numeric ([place] results) Medical Service) HDL CHOLESTEROL 39 mg/dL Above high normal MEDGEN ([place] [facility]) VLDL CALCULATION 53.6 Above high normal MEDGE N mg/dl ([place] [facility]) TRIGLYCERIDES 268 Above high normal MEDGEN mg/dL ([place] [facility]) ID Date Data Source [id number] 05/18/2017 12:00:00 AM EST MEDGEN ([facility]) Name Value Range Interpretation Description Data Sup porting Code Source(s) Document(s ) GLUCOSE 118 Normal (applies MEDGEN NONFASTING,SERUM mg/dL [facility]) SODIUM, SERUM 143 Normal (applies MEDGEN mEq/L to non-numeric ([place] results) Medical Service) POTASSIUM, SERUM 4.1 Normal (applies MEDGEN mEq/L to non-numeric ([place] results) Medical Service) CHLORIDE, SERUM 107 Normal (applies MEDGEN mEq/L to non-numeric ([place] results) Medical Service) Carbon dioxide 25 mEq/L Normal (applies MEDGEN [VFr/PPres] in to non-numeric ([place] [facility] results) Medical system Service) Anion gap in 15.1 Normal (applies MEDGEN Body fluid mEq/L to non-numeric ([place] results) Medical Service) BLOOD UREA 14 mg/dL Normal (applies MEDGEN NITROGEN to non-numeric ([place] results) Medical Service) CREATININE, 1.10 Normal (applies MEDGEN SERUM mg/dL to non-numeric ([place] results) Medical Service) CALCIUM, SERUM 9.3 Normal (applies MEDGEN mg/dL to non-numeric ([place] results) Medical Service) TOTAL PROTEIN 7.4 g/dL Normal (applies MEDGEN to non-numeric ([place] results) Medical Service) Microalbumin 4.2 g/dL Normal (applies MEDGEN [Mass/time] in to non-numeric ([place] Urine collected results) Medical for unspecified Service) duration Globulin 3.2 gldl Normal (applies MEDGEN [Mass/time] in to non-numeric ([place] 24 hour Urine results) Medical Service) A/G RATIO 1.31 Normal (applies MEDGEN g/dl to non-numeric ([place] results) Medical Service) BILIRUBIN, TOTAL 0.6 Normal (applies MEDGEN mg/dL to non-numeric ([place] results) Medical Service) ALKALINE 110 U/L Normal (applies MEDGEN PHOSPHATASE, ALP to non-numeric ([facility] y results) Medical Service) ALT (SGPT) 60 U/L Above high normal MEDGEN ([place] [facility]) AST 41 U/L Above high normal MEDGEN ([place] [facility]) EGFR NON AFR 73 Above high normal MEDGEN ICELANDIC mL/min/1 ([place] .73 Medical Service) EGFR AFR 88 Above high normal MEDGEN ICELANDIC mL/min/1 ([place] [address] Medical Service) ID Date Data Source [id number] 05/18/2017 12:00:00 AM EST MEDGEN ([facility]) Name Value Range Interpretation Description Data Sup porting Code Source(s) Document(s ) WBC 6.3 Normal (applies to MEDGEN 10(3)/uL non-numeric ([place] results) Medical Service) RBC 5.3 Normal (applies to MEDGEN 10(6)/uL non-numeric ([place] results) Medical Service) Hemoglobin 15.9 g/dL Normal (applies to MEDGEN [Mass/volume] non-numeric ([place] in Mixed results) Medical venous blood Service) by Oximetry Hematocrit 46.3 % Normal (applies to MEDGEN [Pure volume non-numeric ([place] fraction] of results) Medical Blood by Service) Automated count MCH 30 pg Normal (applies to MEDGEN non-numeric ([place] results) Medical Service) MCV 88.2 fL Normal (applies to MEDGEN non-numeric ([place] results) Medical Service) MCHC 34 g/dL Normal (applies to MEDGEN non-numeric ([place] results) Medical Service) RDWSD 45.2 fL Normal (applies to MEDGEN non-numeric ([place] results) Medical Service) RDWCV 14.1 % Normal (applies to MEDGEN non-numeric ([place] results) Medical Service) PLT 109 Below low normal MEDGEN 10(3)/uL ([place]) MPV 11.7 fL Normal (applies to MEDGEN non-numeric ([place] results) Medical Service) NE# 3.14 Normal (applies to MEDGEN 10(3)/uL non-numeric ([place] results) Medical Service) LY# 2.17 Normal (applies to MEDGEN 10(3)/uL non-numeric ([place] results) Medical Service) MO# 0.55 Normal (applies to MEDGEN 10(3)/uL non-numeric ([place] results) Medical Service) EO# 0.35 Normal (applies to MEDGEN 10(3)/uL non-numeric ([place] results) Medical Service) IG# 0.01 Normal (applies to MEDGEN 10(3)/uL non-numeric ([place] results) Medical Service) NE% 50.20 % Normal (applies to MEDGEN non-numeric ([place] results) Medical Service) LY% 35 % Normal (applies to MEDGEN non-numeric ([place] results) Medical Service) MO% 8.8 % Normal (applies to MEDGEN non-numeric ([place] results) Medical Service) EO% 5.6 % Normal (applies to MEDGEN non-numeric ([place] results) Medical Service) BA% 0.5 % Normal (applies to MEDGEN non-numeric ([place] results) Medical Service) IG% 0.20 % Normal (applies to MEDGEN non-numeric ([place] results) Medical Service) ID Date Data Source [id number] 05/18/2017 12:00:00 AM EST MEDGEN ([facility]) Name Value Range Interpretation Code Description Data Supporting Source(s) Document(s ) GLYCOMARK 13.17 Normal (applies to MEDGEN ug/mL non-numeric ([place] results) Medical Service) ID Date Data Source [id number] 05/18/2017 12:00:00 AM EST MEDGEN ([facility]) Name Value Range Interpretation Description Data Sup porting Code Source(s) Document(s ) Hemoglobin A1c 5.2 % Normal (applies to MEDGEN in Blood non-numeric ([place] results) Medical Service) ID Date Data Source [id number] 05/18/2017 12:00:00 AM EST MEDGEN ([facility]) Name Value Range Interpretation Description Data Sup porting Code Source(s) Document(s ) GLUCOSE UA NEGATIVE Normal (applies MEDGEN to non-numeric ([place] results) Medical Service) BILIRUBIN, TOTAL NEGATIVE Normal (applies MEDGEN to non-numeric ([place] results) Medical Service) Ketones NEGATIVE Normal (applies MEDGEN [Presence] in to non-numeric ([place] Blood by Tablet results) Medical Service) Specific gravity 1.024 SG Normal (applies MEDGEN of Pericardial units to non-numeric ([place] fluid by results) Medical Refractometry Service) Blood [Presence] MODERATE Normal (applies MEDGEN in Urine by to non-numeric ([place] Visual results) Medical Service) pH of Lower 5 Ph units Normal (applies MEDGEN respiratory to non-numeric ([place] specimen results) Medical Service) Protein NEGATIVE Normal (applies MEDGEN [Mass/volume] in to non-numeric [facility] Medical respiratory Service) specimen Urobilinogen 2.0 mg/dl Normal (applies MEDGEN [Presence] in to non-numeric ([place] Urine by results) Medical Automated test Service) strip Nitrite NEGATIVE Normal (applies MEDGEN [Presence] in to non-numeric ([place] Urine by Test results) Medical strip Service) Leukocyte NEGATIVE Normal (applies MEDGEN esterase to non-numeric ([place] [Presence] in results) Medical Body fluid by Service) Automated test strip Color of YELLOW Normal (applies MEDGEN Peritoneal to non-numeric ([place] dialysis fluid results) Medical Service) TRANSPARENCY SLIGHTLY-CL Normal (applies MEDGEN OUDY to non-numeric ([place] results) Medical Service) MUCOUS MODERATE Normal (applies MEDGEN to non-numeric ([place] results) Medical Service) Calcium Oxalate MANY Normal (applies MEDGEN Crystal to non-numeric ([place] results) Medical Service) ID Date Data Source [id number] 05/18/2017 12:00:00 AM EST MEDGEN ([facility]) Name Value Range Interpretation Description Data Sup porting Code Source(s) Document(s ) TSH,3RD 1.07 Normal (applies to MEDGEN GENERATION uIU/mL non-numeric ([place] results) Medical Service) T4 TOTAL 8.2 ug/dL Normal (applies to MEDGEN THYROXINE non-numeric ([place] results) Medical Service) T3 TOTAL 105 ng/dL Normal (applies to MEDGEN non-numeric ([place] results) Medical Service) ID Date Data Source [id number] 05/18/2017 12:00:00 AM EST MEDGEN ([facility]) Name Value Range Interpretation Description Data Sup porting Code Source(s) Document(s ) VITAMIN D 11.43 Below low normal MEDGEN 25-HYDROXY ng/mL ([place] [facility]) ID Date Data Source [id number] 05/18/2017 12:00:00 AM EST MEDGEN ([facility]) Name Value Range Interpretation Description Data Sup porting Code Source(s) Document(s ) VITAMIN B12 460 pg/mL Normal (applies to MEDGEN non-numeric ([place] results) Medical Service) ID Date Data Source [id number] 05/18/2017 12:00:00 AM EST MEDGEN ([facility]) Name Value Range Interpretation Description Data Sup porting Code Source(s) Document(s ) FOLATE 13.7 ng/mL Above high normal MEDGEN SERUM ([place] [facility]) ID Date Data Source [id number] 05/18/2017 12:00:00 AM EST MEDGEN ([facility]) Name Value Range Interpretation Description Data Sup porting Code Source(s) Document(s ) Cholesterol 168 Normal (applies MEDGEN [Moles/volume] mg/dL to non-numeric ([place] in Pericardial results) Medical fluid Service) LDL CALCULATION 75.4 Normal (applies MEDGEN mg/dL to non-numeric ([place] results) Medical Service) CHOL/HDL RATIO 4.31 Normal (applies MEDGEN ratio to non-numeric ([place] results) Medical Service) HDL CHOLESTEROL 39 mg/dL Above high normal MEDGEN ([place] [facility]) VLDL CALCULATION 53.6 Above high normal MEDGE N mg/dl ([place] [facility]) TRIGLYCERIDES 268 Above high normal MEDGEN mg/dL ([place] [facility]) ID Date Data Source [id number] 05/18/2017 12:00:00 AM EST MEDGEN ([facility]) Name Value Range Interpretation Description Data Sup porting Code Source(s) Document(s ) GLUCOSE 118 Normal (applies MEDGEN NONFASTING,SERUM mg/dL to non-numeric ([place] [facility] results) [facility]) SODIUM, SERUM 143 Normal (applies MEDGEN mEq/L to non-numeric ([place] results) Medical Service) POTASSIUM, SERUM 4.1 Normal (applies MEDGEN mEq/L to non-numeric ([place] results) Medical Service) CHLORIDE, SERUM 107 Normal (applies MEDGEN mEq/L to non-numeric ([place] results) Medical Service) Carbon dioxide 25 mEq/L Normal (applies MEDGEN [VFr/PPres] in to non-numeric ([place] [facility] [employer] results) Medical system Service) Anion gap in 15.1 Normal (applies MEDGEN Body fluid mEq/L to non-numeric ([place] results) Medical Service) BLOOD UREA 14 mg/dL Normal (applies MEDGEN NITROGEN to non-numeric ([place] results) Medical Service) CREATININE, 1.10 Normal (applies MEDGEN SERUM mg/dL to non-numeric ([place] results) Medical Service) CALCIUM, SERUM 9.3 Normal (applies MEDGEN mg/dL to non-numeric ([place] results) Medical Service) TOTAL PROTEIN 7.4 g/dL Normal (applies MEDGEN to non-numeric ([place] results) Medical Service) Microalbumin 4.2 g/dL Normal (applies MEDGEN [Mass/time] in to non-numeric ([place] Urine collected results) Medical for unspecified Service) duration Globulin 3.2 gldl Normal (applies MEDGEN [Mass/time] in to non-numeric ([place] 24 hour Urine results) Medical Service) A/G RATIO 1.31 Normal (applies MEDGEN g/dl to non-numeric ([place] results) Medical Service) BILIRUBIN, TOTAL 0.6 Normal (applies MEDGEN mg/dL to non-numeric ([place] results) Medical Service) ALKALINE 110 U/L Normal (applies MEDGEN PHOSPHATASE, ALP to non-numeric ([facility] y results) Medical Service) ALT (SGPT) 60 U/L Above high normal MEDGEN ([place] [facility]) AST 41 U/L Above high normal MEDGEN ([place] [facility]) EGFR NON AFR 73 Above high normal MEDGEN ICELANDIC mL/min/1 ([place] .73m2 Medical Service) EGFR AFR 88 Above high normal MEDGEN ICELANDIC mL/min/1 ([place] .73m2 Medical Service) ID Date Data Source [id number] 05/18/2017 12:00:00 AM EST MEDGEN ([facility]) Name Value Range Interpretation Description Data Sup porting Code Source(s) Document(s ) WBC 6.3 Normal (applies to MEDGEN 10(3)/uL non-numeric ([place] results) Medical Service) RBC 5.3 Normal (applies to MEDGEN 10(6)/uL non-numeric ([place] results) Medical Service) Hemoglobin 15.9 g/dL Normal (applies to MEDGEN [Mass/volume] non-numeric ([place] in Mixed results) Medical venous blood Service) by Oximetry Hematocrit 46.3 % Normal (applies to MEDGEN [Pure volume non-numeric ([place] fraction] of results) Medical Blood by Service) Automated count MCV 88.2 fL Normal (applies to MEDGEN non-numeric ([place] results) Medical Service) MCH 30 pg Normal (applies to MEDGEN non-numeric ([place] results) Medical Service) MCHC 34 g/dL Normal (applies to MEDGEN non-numeric ([place] results) Medical Service) RDWSD 45.2 fL Normal (applies to MEDGEN non-numeric ([place] results) Medical Service) RDWCV 14.1 % Normal (applies to MEDGEN non-numeric ([place] results) Medical Service) PLT 109 Below low normal MEDGEN 10(3)/uL ([place] [facility]) MPV 11.7 fL Normal (applies to MEDGEN non-numeric ([place] results) Medical Service) NE# 3.14 Normal (applies to MEDGEN 10(3)/uL non-numeric ([place] results) Medical Service) LY# 2.17 Normal (applies to MEDGEN 10(3)/uL non-numeric ([place] results) Medical Service) MO# 0.55 Normal (applies to MEDGEN 10(3)/uL non-numeric ([place] results) Medical Service) EO# 0.35 Normal (applies to MEDGEN 10(3)/uL non-numeric ([place] results) Medical Service) IG# 0.01 Normal (applies to MEDGEN 10(3)/uL non-numeric ([place] results) Medical Service) NE% 50.20 % Normal (applies to MEDGEN non-numeric ([place] results) Medical Service) LY% 35 % Normal (applies to MEDGEN non-numeric ([place] results) Medical Service) MO% 8.8 % Normal (applies to MEDGEN non-numeric ([place] results) Medical Service) EO% 5.6 % Normal (applies to MEDGEN non-numeric ([place] results) Medical Service) BA% 0.5 % Normal (applies to MEDGEN non-numeric ([place] results) Medical Service) IG% 0.20 % Normal (applies to MEDGEN non-numeric ([place] results) Medical Service) ID Date Data Source [id number] 05/18/2017 12:00:00 AM EST MEDGEN ([facility]) Name Value Range Interpretation Code Description Data Supporting Source(s) Document(s ) GLYCOMARK 13.17 Normal (applies to MEDGEN ug/mL non-numeric ([place] results) Medical Service) ID Date Data Source [id number] 05/18/2017 12:00:00 AM EST MEDGEN ([facility]) Name Value Range Interpretation Description Data Sup porting Code Source(s) Document(s ) Hemoglobin A1c 5.2 % Normal (applies to MEDGEN in Blood non-numeric ([place] results) Medical Service) ID Date Data Source [id number] 05/18/2017 12:00:00 AM EST MEDGEN ([facility] [place]) Name Value Range Interpretation Description Data Sup porting Code Source(s) Document(s ) GLUCOSE UA NEGATIVE Normal (applies MEDGEN to non-numeric ([place] results) Medical Service) BILIRUBIN, TOTAL NEGATIVE Normal (applies MEDGEN to non-numeric ([place] results) Medical Service) Ketones NEGATIVE Normal (applies MEDGEN [Presence] in to non-numeric ([place] Blood by Tablet results) Medical Service) Specific gravity 1.024 SG Normal (applies MEDGEN of Pericardial units to non-numeric ([place] fluid by results) Medical Refractometry Service) Blood [Presence] MODERATE Normal (applies MEDGEN in Urine by to non-numeric ([place] Visual results) Medical Service) pH of Lower 5 Ph units Normal (applies MEDGEN respiratory to non-numeric ([place] specimen results) Medical Service) Protein NEGATIVE Normal (applies MEDGEN [Mass/volume] in to non-numeric [facility] Medical respiratory Service) specimen Urobilinogen 2.0 mg/dl Normal (applies MEDGEN [Presence] in to non-numeric ([place] Urine by results) Medical Automated test Service) strip Nitrite NEGATIVE Normal (applies MEDGEN [Presence] in to non-numeric ([place] Urine by Test results) Medical strip Service) Leukocyte NEGATIVE Normal (applies MEDGEN esterase to non-numeric ([place] [Presence] in results) Medical Body fluid by Service) Automated test strip Color of YELLOW Normal (applies MEDGEN Peritoneal to non-numeric ([place] dialysis fluid results) Medical Service) TRANSPARENCY SLIGHTLY-CL Normal (applies MEDGEN OUDY to non-numeric ([place] results) Medical Service) MUCOUS MODERATE Normal (applies MEDGEN to non-numeric ([place] results) Medical Service) Calcium Oxalate MANY Normal (applies MEDGEN Crystal to non-numeric ([place] results) Medical Service) ID Date Data Source [id number] 05/18/2017 12:00:00 AM EST MEDGEN ([facility]) Name Value Range Interpretation Description Data Sup porting Code Source(s) Document(s ) TSH,3RD 1.07 Normal (applies to MEDGEN GENERATION uIU/mL non-numeric ([place] results) Medical Service) T4 TOTAL 8.2 ug/dL Normal (applies to MEDGEN THYROXINE non-numeric ([place] results) Medical Service) T3 TOTAL 105 ng/dL Normal (applies to MEDGEN non-numeric ([place] results) Medical Service) ID Date Data Source [id number] 05/18/2017 12:00:00 AM EST MEDGEN ([facility]) Name Value Range Interpretation Description Data Sup porting Code Source(s) Document(s ) VITAMIN D 11.43 Below low normal MEDGEN 25-HYDROXY ng/mL ([facility]) ID Date Data Source [id number] 05/18/2017 12:00:00 AM EST MEDGEN ([facility]) Name Value Range Interpretation Description Data Sup porting Code Source(s) Document(s ) VITAMIN B12 460 pg/mL Normal (applies to MEDGEN non-numeric ([place] results) Medical Service) ID Date Data Source [id number] 05/18/2017 12:00:00 AM EST MEDGEN ([facility]) Name Value Range Interpretation Description Data Sup porting Code Source(s) Document(s ) FOLATE 13.7 ng/mL Above high normal MEDGEN SERUM ([facility]) ID Date Data Source [id number] 05/18/2017 12:00:00 AM EST MEDGEN ([facility]) Name Value Range Interpretation Description Data Sup porting Code Source(s) Document(s ) Cholesterol 168 Normal (applies MEDGEN [Moles/volume] mg/dL to non-numeric ([place] in Pericardial results) Medical fluid Service) LDL CALCULATION 75.4 Normal (applies MEDGEN mg/dL to non-numeric ([place] results) Medical Service) CHOL/HDL RATIO 4.31 Normal (applies MEDGEN ratio to non-numeric ([place] results) Medical Service) HDL CHOLESTEROL 39 mg/dL Above high normal MEDGEN ([place] [facility]) VLDL CALCULATION 53.6 Above high normal MEDGE N mg/dl ([place] [facility]) TRIGLYCERIDES 268 Above high normal MEDGEN mg/dL ([place] [facility]) ID Date Data Source [id number] 05/18/2017 12:00:00 AM EST MEDGEN ([facility]) Name Value Range Interpretation Description Data Sup porting Code Source(s) Document(s ) GLUCOSE 118 Normal (applies MEDGEN NONFASTING,SERUM mg/dL to non-numeric ([facility] results) Medical Service) SODIUM, SERUM 143 Normal (applies MEDGEN mEq/L to non-numeric ([place] results) Medical Service) POTASSIUM, SERUM 4.1 Normal (applies MEDGEN mEq/L to non-numeric ([place] results) Medical Service) CHLORIDE, SERUM 107 Normal (applies MEDGEN mEq/L to non-numeric ([place] results) Medical Service) Carbon dioxide 25 mEq/L Normal (applies MEDGEN [VFr/PPres] in to non-numeric ([place] [facility] results) Medical system Service) Anion gap in 15.1 Normal (applies MEDGEN Body fluid mEq/L to non-numeric ([place] results) Medical Service) BLOOD UREA 14 mg/dL Normal (applies MEDGEN NITROGEN to non-numeric ([place] results) Medical Service) CREATININE, 1.10 Normal (applies MEDGEN SERUM mg/dL to non-numeric ([place] results) Medical Service) CALCIUM, SERUM 9.3 Normal (applies MEDGEN mg/dL to non-numeric ([place] results) Medical Service) TOTAL PROTEIN 7.4 g/dL Normal (applies MEDGEN to non-numeric ([place] results) Medical Service) Microalbumin 4.2 g/dL Normal (applies MEDGEN [Mass/time] in to non-numeric ([place] Urine collected results) Medical for unspecified Service) duration Globulin 3.2 gldl Normal (applies MEDGEN [Mass/time] in to non-numeric ([place] 24 hour Urine results) Medical Service) A/G RATIO 1.31 Normal (applies MEDGEN g/dl to non-numeric ([place] results) Medical Service) BILIRUBIN, TOTAL 0.6 Normal (applies MEDGEN mg/dL to non-numeric ([place] results) Medical Service) ALKALINE 110 U/L Normal (applies MEDGEN PHOSPHATASE, ALP to non-numeric [facility]) ALT (SGPT) 60 U/L Above high normal MEDGEN ([place] [facility]) AST 41 U/L Above high normal MEDGEN ([place] [facility]) EGFR NON AFR 73 Above high normal MEDGEN ICELANDIC mL/min/1 ([place] .73 Medical Service) EGFR AFR 88 Above high normal MEDGEN ICELANDIC mL/min/1 ([place] [address] Medical Service) ID Date Data Source [id number] 05/18/2017 12:00:00 AM EST MEDGEN ([facility]) Name Value Range Interpretation Description Data Sup porting Code Source(s) Document(s ) WBC 6.3 Normal (applies to MEDGEN 10(3)/uL non-numeric ([place] results) Medical Service) RBC 5.3 Normal (applies to MEDGEN 10(6)/uL non-numeric ([place] results) Medical Service) Hemoglobin 15.9 g/dL Normal (applies to MEDGEN [Mass/volume] non-numeric ([place] in Mixed results) Medical venous blood Service) by Oximetry Hematocrit 46.3 % Normal (applies to MEDGEN [Pure volume non-numeric ([place] fraction] of results) Medical Blood by Service) Automated count MCV 88.2 fL Normal (applies to MEDGEN non-numeric ([place] results) Medical Service) MCH 30 pg Normal (applies to MEDGEN non-numeric ([place] results) Medical Service) MCHC 34 g/dL Normal (applies to MEDGEN non-numeric ([place] results) Medical Service) RDWSD 45.2 fL Normal (applies to MEDGEN non-numeric ([place] results) Medical Service) RDWCV 14.1 % Normal (applies to MEDGEN non-numeric ([place] results) Medical Service) PLT 109 Below low normal MEDGEN 10(3)/uL ([place] [facility]) MPV 11.7 fL Normal (applies to MEDGEN non-numeric ([place] results) Medical Service) NE# 3.14 Normal (applies to MEDGEN 10(3)/uL non-numeric ([place] results) Medical Service) LY# 2.17 Normal (applies to MEDGEN 10(3)/uL non-numeric ([place] results) Medical Service) MO# 0.55 Normal (applies to MEDGEN 10(3)/uL non-numeric ([place] results) Medical Service) EO# 0.35 Normal (applies to MEDGEN 10(3)/uL non-numeric ([place] results) Medical Service) IG# 0.01 Normal (applies to MEDGEN 10(3)/uL non-numeric ([place] results) Medical Service) NE% 50.20 % Normal (applies to MEDGEN non-numeric ([place] results) Medical Service) LY% 35 % Normal (applies to MEDGEN non-numeric ([place] results) Medical Service) MO% 8.8 % Normal (applies to MEDGEN non-numeric ([place] results) Medical Service) EO% 5.6 % Normal (applies to MEDGEN non-numeric ([place] results) Medical Service) BA% 0.5 % Normal (applies to MEDGEN non-numeric ([place] results) Medical Service) IG% 0.20 % Normal (applies to MEDGEN non-numeric ([place] results) Medical Service) ID Date Data Source [id number] 05/18/2017 12:00:00 AM EST MEDGEN ([facility]) Name Value Range Interpretation Code Description Data Supporting Source(s) Document(s ) GLYCOMARK 13.17 Normal (applies to MEDGEN ug/mL non-numeric ([place] results) Medical Service) ID Date Data Source [id number] 05/18/2017 12:00:00 AM EST [facility] ([facility]) Name Value Range Interpretation Description Data Sup porting Code Source(s) Document(s ) Hemoglobin A1c 5.2 % Normal (applies to [facility] in Blood non-numeric ([facility] results) Medical Service) ID Date Data Source [id number] 05/18/2017 12:00:00 AM EST [facility] ([facility]) Name Value Range Interpretation Description Data Sup porting Code Source(s) Document(s ) GLUCOSE UA NEGATIVE Normal (applies [facility] to non-numeric ([place] results) Medical Service) BILIRUBIN, TOTAL NEGATIVE Normal (applies [facility] to non-numeric ([place] results) Medical Service) Ketones NEGATIVE Normal (applies [facility] [Presence] in to non-numeric ([place] Blood by Tablet results) Medical Service) Specific gravity 1.024 SG Normal (applies [facility] of Pericardial units to non-numeric ([place] fluid by results) Medical Refractometry Service) Blood [Presence] MODERATE Normal (applies [facility] in Urine by to non-numeric ([place] Visual results) Medical Service) pH of Lower 5 Ph units Normal (applies [facility] respiratory to non-numeric ([place] specimen results) Medical Service) Protein NEGATIVE Normal (applies [facility] [Mass/volume] in to non-numeric ([place] y Lower results) Medical respiratory Service) specimen Urobilinogen 2.0 mg/dl Normal (applies [facility] [Presence] in to non-numeric ([place] Urine by results) Medical Automated test Service) strip Nitrite NEGATIVE Normal (applies [facility] [Presence] in to non-numeric ([place] Urine by Test results) Medical strip Service) Leukocyte NEGATIVE Normal (applies [facility] esterase to non-numeric ([place] [Presence] in results) Medical Body fluid by Service) Automated test strip Color of YELLOW Normal (applies [facility] Peritoneal to non-numeric ([place] dialysis fluid results) Medical Service) TRANSPARENCY SLIGHTLY-CL Normal (applies [facility] OUDY to non-numeric ([place] results) Medical Service) MUCOUS MODERATE Normal (applies [facility] to non-numeric ([place] results) Medical Service) Calcium Oxalate MANY Normal (applies [facility] Crystal to non-numeric ([place] results) Medical Service) ID Date Data Source [id number] 05/18/2017 12:00:00 AM EST [facility] ([facility]) Name Value Range Interpretation Description Data Sup porting Code Source(s) Document(s ) TSH,3RD 1.07 Normal (applies to [facility] GENERATION uIU/mL non-numeric ([place] results) Medical Service) T4 TOTAL 8.2 ug/dL Normal (applies to [facility] THYROXINE non-numeric ([place] results) Medical Service) T3 TOTAL 105 ng/dL Normal (applies to [facility] non-numeric ([place] results) Medical Service) ID Date Data Source [id number] 05/18/2017 12:00:00 AM EST [facility] ([facility]) Name Value Range Interpretation Description Data Sup porting Code Source(s) Document(s ) VITAMIN D 11.43 Below low normal [facility] 25-HYDROXY ng/mL ([facility]) ID Date Data Source [id number] 05/18/2017 12:00:00 AM EST [facility] ([facility]) Name Value Range Interpretation Description Data Sup porting Code Source(s) Document(s ) VITAMIN B12 460 pg/mL Normal (applies to [facility] non-numeric ([place] results) Medical Service) ID Date Data Source [id number] 05/18/2017 12:00:00 AM EST [facility] ([facility]) Name Value Range Interpretation Description Data Sup porting Code Source(s) Document(s ) FOLATE 13.7 ng/mL Above high normal [facility] SERUM ([place] [facility]) ID Date Data Source [id number] 05/18/2017 12:00:00 AM EST [facility] ([facility]) Name Value Range Interpretation Description Data Sup porting Code Source(s) Document(s ) Cholesterol 168 Normal (applies [facility] [Moles/volume] mg/dL to non-numeric ([place] in Pericardial results) Medical fluid Service) CHOL/HDL RATIO 4.31 Normal (applies [facility] ratio to non-numeric ([place] results) Medical Service) LDL CALCULATION 75.4 Normal (applies [facility] mg/dL to non-numeric ([place] results) Medical Service) HDL CHOLESTEROL 39 mg/dL Above high normal [facility] ([place] [facility]) VLDL CALCULATION 53.6 Above high normal [facility] N mg/dl ([place] [facility]) TRIGLYCERIDES 268 Above high normal [facility] mg/dL ([place] [facility]) ID Date Data Source [id number] 05/18/2017 12:00:00 AM EST [facility] ([facility]) Name Value Range Interpretation Description Data Sup porting Code Source(s) Document(s ) GLUCOSE 118 Normal (applies [facility] NONFASTING,SERUM mg/dL to non-numeric ([place] [facility] results) Medical Service) SODIUM, SERUM 143 Normal (applies [facility] mEq/L to non-numeric ([place] results) Medical Service) POTASSIUM, SERUM 4.1 Normal (applies [facility] mEq/L to non-numeric ([place] results) Medical Service) CHLORIDE, SERUM 107 Normal (applies [facility] mEq/L to non-numeric ([place] results) Medical Service) Carbon dioxide 25 mEq/L Normal (applies [facility] [VFr/PPres] in to non-numeric ([place] Gas delivery results) Medical system Service) Anion gap in 15.1 Normal (applies [facility] Body fluid mEq/L to non-numeric ([place] results) Medical Service) BLOOD UREA 14 mg/dL Normal (applies [facility] NITROGEN to non-numeric ([place] results) Medical Service) CREATININE, 1.10 Normal (applies [facility] SERUM mg/dL to non-numeric ([place] results) Medical Service) CALCIUM, SERUM 9.3 Normal (applies [facility] mg/dL to non-numeric ([place] results) Medical Service) TOTAL PROTEIN 7.4 g/dL Normal (applies [facility] to non-numeric ([place] results) Medical Service) Microalbumin 4.2 g/dL Normal (applies [facility] [Mass/time] in to non-numeric ([place] Urine collected results) Medical for unspecified Service) duration Globulin 3.2 gldl Normal (applies [facility] [Mass/time] in to non-numeric ([place] 24 hour Urine results) Medical Service) A/G RATIO 1.31 Normal (applies [facility] g/dl to non-numeric ([place] results) Medical Service) BILIRUBIN, TOTAL 0.6 Normal (applies [facility] mg/dL to non-numeric ([place] results) Medical Service) ALKALINE 110 U/L Normal (applies [facility] PHOSPHATASE, ALP to non-numeric ([facility] y results) Medical Service) ALT (SGPT) 60 U/L Above high normal [facility] ([place] [facility]) AST 41 U/L Above high normal [facility] ([place] [facility]) EGFR NON AFR 73 Above high normal [facility] ICELANDIC mL/min/1 ([place] .73m2 Medical Service) EGFR AFR 88 Above high normal [facility] ICELANDIC mL/min/1 ([place] .73m2 Medical Service) ID Date Data Source [id number] 05/18/2017 12:00:00 AM EST [facility] ([facility]) Name Value Range Interpretation Description Data Sup porting Code Source(s) Document(s ) WBC 6.3 Normal (applies to [facility] 10(3)/uL non-numeric ([place] results) Medical Service) RBC 5.3 Normal (applies to [facility] 10(6)/uL non-numeric ([place] results) Medical Service) Hemoglobin 15.9 g/dL Normal (applies to [facility] [Mass/volume] non-numeric ([place] in Mixed results) Medical venous blood Service) by Oximetry Hematocrit 46.3 % Normal (applies to [facility] [Pure volume non-numeric ([place] fraction] of results) Medical Blood by Service) Automated count MCV 88.2 fL Normal (applies to [facility] non-numeric ([place] results) Medical Service) MCH 30 pg Normal (applies to [facility] non-numeric ([place] results) Medical Service) RDWSD 45.2 fL Normal (applies to [facility] non-numeric ([place] results) Medical Service) MCHC 34 g/dL Normal (applies to [facility] non-numeric ([place] results) Medical Service) RDWCV 14.1 % Normal (applies to [facility] non-numeric ([place] results) Medical Service) PLT 109 Below low normal [facility] 10(3)/uL ([place]) MPV 11.7 fL Normal (applies to [facility] non-numeric ([place] results) Medical Service) NE# 3.14 Normal (applies to [facility] 10(3)/uL non-numeric ([place] results) Medical Service) LY# 2.17 Normal (applies to [facility] 10(3)/uL non-numeric ([place] results) Medical Service) MO# 0.55 Normal (applies to [facility] 10(3)/uL non-numeric ([place] results) Medical Service) EO# 0.35 Normal (applies to [facility] 10(3)/uL non-numeric ([place] results) Medical Service) NE% 50.20 % Normal (applies to [facility] non-numeric ([place] results) Medical Service) IG# 0.01 Normal (applies to [facility] 10(3)/uL non-numeric ([place] results) Medical Service) LY% 35 % Normal (applies to [facility] non-numeric ([place] results) Medical Service) MO% 8.8 % Normal (applies to [facility] non-numeric ([place] results) Medical Service) EO% 5.6 % Normal (applies to [facility] non-numeric ([place] results) Medical Service) BA% 0.5 % Normal (applies to [facility] non-numeric ([place] results) Medical Service) IG% 0.20 % Normal (applies to [facility] non-numeric ([place] results) Medical Service) ID Date Data Source [id number] 05/18/2017 12:00:00 AM EST [facility] ([facility]) Name Value Range Interpretation Code Description Data Supporting Source(s) Document(s ) GLYCOMARK 13.17 Normal (applies to [facility] ug/mL non-numeric ([place] results) Medical Service) ID Date Data Source [id number] 05/18/2017 12:00:00 AM EST [facility] ([facility]) Name Value Range Interpretation Description Data Sup porting Code Source(s) Document(s ) Hemoglobin A1c 5.2 % Normal (applies to [facility] in Blood non-numeric ([place] results) Medical Service) ID Date Data Source [id number] 05/18/2017 12:00:00 AM EST [facility] ([facility]) Name Value Range Interpretation Description Data Sup porting Code Source(s) Document(s ) GLUCOSE UA NEGATIVE Normal (applies [facility] to non-numeric ([place] results) Medical Service) BILIRUBIN, TOTAL NEGATIVE Normal (applies [facility] to non-numeric ([place] results) Medical Service) Ketones NEGATIVE Normal (applies [facility] [Presence] in to non-numeric ([place] Blood by Tablet results) Medical Service) Specific gravity 1.024 SG Normal (applies [facility] of Pericardial units to non-numeric ([place] fluid by results) Medical Refractometry Service) Blood [Presence] MODERATE Normal (applies [facility] in Urine by to non-numeric ([place] Visual results) Medical Service) pH of Lower 5 Ph units Normal (applies [facility] respiratory to non-numeric ([place] specimen results) Medical Service) Protein NEGATIVE Normal (applies [facility] [Mass/volume] in to non-numeric ([place] y Lower results) Medical respiratory Service) specimen Urobilinogen 2.0 mg/dl Normal (applies [facility] [Presence] in to non-numeric ([place] Urine by results) Medical Automated test Service) strip Nitrite NEGATIVE Normal (applies [facility] [Presence] in to non-numeric ([place] Urine by Test results) Medical strip Service) Leukocyte NEGATIVE Normal (applies [facility] esterase to non-numeric ([place] [Presence] in results) Medical Body fluid by Service) Automated test strip Color of YELLOW Normal (applies [facility] Peritoneal to non-numeric ([place] dialysis fluid results) Medical Service) TRANSPARENCY SLIGHTLY-CL Normal (applies [facility] OUDY to non-numeric ([place] results) Medical Service) MUCOUS MODERATE Normal (applies [facility] to non-numeric ([place] results) Medical Service) Calcium Oxalate MANY Normal (applies [facility] Crystal to non-numeric ([place] results) Medical Service) ID Date Data Source [id number] 05/18/2017 12:00:00 AM EST [facility] ([facility]) Name Value Range Interpretation Description Data Sup porting Code Source(s) Document(s ) TSH,3RD 1.07 Normal (applies to [facility] GENERATION uIU/mL non-numeric ([place] results) Medical Service) T4 TOTAL 8.2 ug/dL Normal (applies to [facility] THYROXINE non-numeric ([place] results) Medical Service) T3 TOTAL 105 ng/dL Normal (applies to [facility] non-numeric ([place] results) Medical Service) ID Date Data Source [id number] 05/18/2017 12:00:00 AM EST [facility] ([facility]) Name Value Range Interpretation Description Data Sup porting Code Source(s) Document(s ) VITAMIN D 11.43 Below low normal [facility] 25-HYDROXY ng/mL ([place] [facility]) ID Date Data Source [id number] 05/18/2017 12:00:00 AM EST [facility] ([facility]) Name Value Range Interpretation Description Data Sup porting Code Source(s) Document(s ) VITAMIN B12 460 pg/mL Normal (applies to [facility] non-numeric ([place] results) Medical Service) ID Date Data Source [id number] 05/18/2017 12:00:00 AM EST [facility] ([facility]) Name Value Range Interpretation Description Data Sup porting Code Source(s) Document(s ) FOLATE 13.7 ng/mL Above high normal [facility] SERUM ([facility]) ID Date Data Source [id number] 05/18/2017 12:00:00 AM EST [facility] ([facility]) Name Value Range Interpretation Description Data Sup porting Code Source(s) Document(s ) Cholesterol 168 Normal (applies [facility] [Moles/volume] mg/dL to non-numeric ([place] in Pericardial results) Medical fluid Service) LDL CALCULATION 75.4 Normal (applies [facility] mg/dL to non-numeric ([place] results) Medical Service) CHOL/HDL RATIO 4.31 Normal (applies [facility] ratio to non-numeric ([place] results) Medical Service) HDL CHOLESTEROL 39 mg/dL Above high normal [facility] ([place] [facility]) VLDL CALCULATION 53.6 Above high normal [facility] N mg/dl ([place] [facility]) TRIGLYCERIDES 268 Above high normal [facility] mg/dL ([place]) ID Date Data Source [id number] 05/18/2017 12:00:00 AM EST [facility] ([facility]) Name Value Range Interpretation Description Data Sup porting Code Source(s) Document(s ) GLUCOSE 118 Normal (applies [facility] NONFASTING,SERUM mg/dL to non-numeric ([facility] y results) Medical Service) SODIUM, SERUM 143 Normal (applies [facility] mEq/L to non-numeric ([place] results) Medical Service) POTASSIUM, SERUM 4.1 Normal (applies [facility] mEq/L to non-numeric ([place] results) Medical Service) CHLORIDE, SERUM 107 Normal (applies [facility] mEq/L to non-numeric ([place] results) Medical Service) Carbon dioxide 25 mEq/L Normal (applies [facility] [VFr/PPres] in to non-numeric ([place] Gas delivery results) Medical system Service) Anion gap in 15.1 Normal (applies [facility] Body fluid mEq/L to non-numeric ([place] results) Medical Service) BLOOD UREA 14 mg/dL Normal (applies [facility] NITROGEN to non-numeric ([place] results) Medical Service) CREATININE, 1.10 Normal (applies [facility] SERUM mg/dL to non-numeric ([place] results) Medical Service) CALCIUM, SERUM 9.3 Normal (applies [facility] mg/dL to non-numeric ([place] results) Medical Service) TOTAL PROTEIN 7.4 g/dL Normal (applies [facility] to non-numeric ([place] results) Medical Service) Microalbumin 4.2 g/dL Normal (applies [facility] [Mass/time] in to non-numeric ([place] Urine collected results) Medical for unspecified Service) duration Globulin 3.2 gldl Normal (applies [facility] [Mass/time] in to non-numeric ([place] 24 hour Urine results) Medical Service) A/G RATIO 1.31 Normal (applies [facility] g/dl to non-numeric ([place] results) Medical Service) BILIRUBIN, TOTAL 0.6 Normal (applies [facility] mg/dL to non-numeric ([place] results) Medical Service) ALKALINE 110 U/L Normal (applies [facility] PHOSPHATASE, ALP to non-numeric ([facility] y results) Medical Service) ALT (SGPT) 60 U/L Above high normal [facility] ([place] [facility]) AST 41 U/L Above high normal [facility] ([place] [facility]) EGFR NON AFR 73 Above high normal [facility] ICELANDIC mL/min/1 ([place] .73m2 Medical Service) EGFR AFR 88 Above high normal [facility] ICELANDIC mL/min/1 ([place] .73m2 Medical Service) ID Date Data Source [id number] 05/18/2017 12:00:00 AM EST [facility] ([facility]) Name Value Range Interpretation Description Data Sup porting Code Source(s) Document(s ) WBC 6.3 Normal (applies to [facility] 10(3)/uL non-numeric ([place] results) Medical Service) RBC 5.3 Normal (applies to [facility] 10(6)/uL non-numeric ([place] results) Medical Service) Hemoglobin 15.9 g/dL Normal (applies to [facility] [Mass/volume] non-numeric ([place] in Mixed results) Medical venous blood Service) by Oximetry Hematocrit 46.3 % Normal (applies to [facility] [Pure volume non-numeric ([place] fraction] of results) Medical Blood by Service) Automated count MCV 88.2 fL Normal (applies to [facility] non-numeric ([place] results) Medical Service) MCH 30 pg Normal (applies to [facility] non-numeric ([place] results) Medical Service) MCHC 34 g/dL Normal (applies to [facility] non-numeric ([place] results) Medical Service) RDWSD 45.2 fL Normal (applies to [facility] non-numeric ([place] results) Medical Service) RDWCV 14.1 % Normal (applies to [facility] non-numeric ([place] results) Medical Service) PLT 109 Below low normal [facility] 10(3)/uL ([place] [facility]) MPV 11.7 fL Normal (applies to [facility] non-numeric ([place] results) Medical Service) NE# 3.14 Normal (applies to [facility] 10(3)/uL non-numeric ([place] results) Medical Service) LY# 2.17 Normal (applies to [facility] 10(3)/uL non-numeric ([place] results) Medical Service) MO# 0.55 Normal (applies to [facility] 10(3)/uL non-numeric ([place] results) Medical Service) EO# 0.35 Normal (applies to [facility] 10(3)/uL non-numeric ([place] results) Medical Service) IG# 0.01 Normal (applies to [facility] 10(3)/uL non-numeric ([place] results) Medical Service) NE% 50.20 % Normal (applies to [facility] non-numeric ([place] results) Medical Service) LY% 35 % Normal (applies to [facility] non-numeric ([place] results) Medical Service) MO% 8.8 % Normal (applies to [facility] non-numeric ([place] results) Medical Service) EO% 5.6 % Normal (applies to [facility] non-numeric ([place] results) Medical Service) BA% 0.5 % Normal (applies to [facility] non-numeric ([place] results) Medical Service) IG% 0.20 % Normal (applies to [facility] non-numeric ([place] results) Medical Service) ID Date Data Source [id number] 05/18/2017 12:00:00 AM EST [facility] ([facility]) Name Value Range Interpretation Code Description Data Supporting Source(s) Document(s ) GLYCOMARK 13.17 Normal (applies to [facility] ug/mL non-numeric ([place] results) Medical Service) ID Date Data Source [id number] 05/18/2017 12:00:00 AM EST [facility] ([facility]) Name Value Range Interpretation Description Data Sup porting Code Source(s) Document(s ) Hemoglobin A1c 5.2 % Normal (applies to [facility] in Blood non-numeric ([place] results) Medical Service) ID Date Data Source [id number] 05/18/2017 12:00:00 AM EST [facility] ([facility]) Name Value Range Interpretation Description Data Sup porting Code Source(s) Document(s ) GLUCOSE UA NEGATIVE Normal (applies [facility] to non-numeric ([place] results) Medical Service) BILIRUBIN, TOTAL NEGATIVE Normal (applies [facility] to non-numeric ([place] results) Medical Service) Ketones NEGATIVE Normal (applies [facility] [Presence] in to non-numeric ([place] Blood by Tablet results) Medical Service) Specific gravity 1.024 SG Normal (applies [facility]GEN of Pericardial units to non-numeric ([place] fluid by results) Medical Refractometry Service) Blood [Presence] MODERATE Normal (applies [facility] in Urine by to non-numeric ([place] Visual results) Medical Service) pH of Lower 5 Ph units Normal (applies MEDGEN respiratory to non-numeric ([place] specimen results) Medical Service) Protein NEGATIVE Normal (applies [facility]volume] [facility] Medical [facility] Service) specimen Urobilinogen 2.0 mg/dl Normal (applies MED[facility] [Presence] in to non-numeric ([place] Urine by results) Medical Automated test Service) strip Nitrite NEGATIVE Normal (applies MED[facility] [Presence] in to non-numeric ([place] Urine by Test results) Medical strip Service) Leukocyte NEGATIVE Normal (applies MEDGEN esterase to non-numeric ([place] [Presence] in results) Medical Body fluid by Service) Automated test strip Color of YELLOW Normal (applies MED[facility] Peritoneal to non-numeric ([place] dialysis fluid results) Medical Service) TRANSPARENCY SLIGHTLY-CL Normal (applies [facility] OUDY to non-numeric ([place] results) Medical Service) MUCOUS MODERATE Normal (applies [facility] to non-numeric ([place] results) Medical Service) Calcium Oxalate MANY Normal (applies MEDGEN Crystal to non-numeric ([place] results) Medical Service) ID Date Data Source [id number] 05/18/2017 12:00:00 AM EST [facility] ([facility]) Name Value Range Interpretation Description Data Sup porting Code Source(s) Document(s ) TSH,3RD 1.07 Normal (applies to [facility] GENERATION uIU/mL non-numeric ([place] results) Medical Service) T4 TOTAL 8.2 ug/dL Normal (applies to [facility] THYROXINE non-numeric ([place] results) Medical Service) T3 TOTAL 105 ng/dL Normal (applies to [facility] non-numeric ([place] results) Medical Service) ID Date Data Source [id number] 01/27/2017 12:00:00 AM EDT [facility] ([facility]) Name Value Range Interpretation Code Description Data Supporting Source(s) Document(s ) No Growth No Growth Normal (applies to [facility] non-numeric ([place] results) Medical Service) ID Date Data Source [id number] 01/27/2017 12:00:00 AM EDT [facility]) Name Value Range Interpretation Description Data Sup porting Code Source(s) Document(s ) Color, Urine Dk Yellow Normal (applies [facility] to non-numeric ([place] results) Medical Service) Appearance, Cloudy Above high [facility] Urine normal ([place] [facility]) pH, Urine 5.5 Normal (applies [facility] to non-numeric ([place] results) Medical Service) Specific gravity 1.029 R.I. Normal (applies MED[facility] of Pericardial to non-numeric ([place] fluid by results) Medical Refractometry Service) Bilirubin, Urine Small Above high [facility] normal ([place] [facility]) Blood, Urine Negative Normal (applies [facility] to non-numeric ([place] results) Medical Service) Leuk. Esterase, Small Above high MED[facility] U normal ([place] [facility]) Nitrites, Urine Negative Normal (applies [facility] to non-numeric ([place] results) Medical Service) Glucose, Urine Negative Normal (applies [facility] to non-numeric ([place] results) Medical Service) Ketones, Urine Negative Normal (applies [facility] to non-numeric ([place] results) Medical Service) Protein, Urine Negative Normal (applies [facility] to non-numeric ([place] results) Medical Service) Urobilinogen, U 0.2 EU/dL Normal (applies [facility] to non-numeric ([place] results) Medical Service) RBC, Urine 0-2 Normal (applies [facility] to non-numeric ([place] results) Medical Service) WBC, Urine 5-10 Above high [facility] normal ([place] [facility]) Bacteria, Urine Few Above high [facility] normal ([place] [facility]) Epithelial cells None seen Normal (applies MEDGEN [Presence] in to non-numeric ([place] Unspecified results) Medical specimen by Gram Service) stain Crystals Calcium Above high MEDGEN [#/area] in Body Oxalate normal ([place] fluid by Light Crystals Medical microscopy Service) Yeast [#/area] None seen Normal (applies MEDGEN in Urine by to non-numeric ([place] Automated count results) Medical Service) ID Date Data Source [id number] 01/27/2017 12:00:00 AM EDT [facility] ([facility]) Name Value Range Interpretation Code Description Data Supporting Source(s) Document(s ) No Growth No Growth Normal (applies to MEDGEN non-numeric ([place] results) Medical Service) ID Date Data Source [id number] 01/27/2017 12:00:00 AM EDT [facility] ([facility]) Name Value Range Interpretation Description Data Sup porting Code Source(s) Document(s ) Color, Urine Dk Yellow Normal (applies MEDGEN to non-numeric ([place] results) Medical Service) Appearance, Cloudy Above high [facility] Urine normal ([place] [facility]) pH, Urine 5.5 Normal (applies MED[facility] to non-numeric ([place] results) Medical Service) Specific gravity 1.029 R.I. Normal (applies MEDGEN of Pericardial to non-numeric ([place] fluid by results) Medical Refractometry Service) Bilirubin, Urine Small Above high [facility] normal ([place] [facility]) Blood, Urine Negative Normal (applies MEDGEN to non-numeric ([place] results) Medical Service) Leuk. Esterase, Small Above high MED[facility] U normal ([place] [facility]) Nitrites, Urine Negative Normal (applies MEDGEN to non-numeric ([place] results) Medical Service) Glucose, Urine Negative Normal (applies MEDGEN to non-numeric ([place] results) Medical Service) Ketones, Urine Negative Normal (applies MEDGEN to non-numeric ([place] results) Medical Service) Protein, Urine Negative Normal (applies MEDGEN to non-numeric ([place] results) Medical Service) Urobilinogen, U 0.2 EU/dL Normal (applies MEDGEN to non-numeric ([place] results) Medical Service) RBC, Urine 0-2 Normal (applies MEDGEN to non-numeric ([place] results) Medical Service) WBC, Urine 5-10 Above high MEDGEN normal ([place]) Bacteria, Urine Few Above high MEDGEN normal ([place] [facility]) Epithelial cells None seen Normal (applies MEDGEN [Presence] in to non-numeric ([place] Unspecified results) Medical specimen by Gram Service) stain Crystals Calcium Above high MEDGEN [#/area] in Body Oxalate normal ([place] fluid by Light Crystals Medical microscopy Service) Yeast [#/area] None seen Normal (applies MEDGEN in Urine by to non-numeric ([place] Automated count results) Medical Service) ID Date Data Source [id number] 01/27/2017 12:00:00 AM EDT MEDGEN ([facility]) Name Value Range Interpretation Code Description Data Supporting Source(s) Document(s ) No Growth No Growth Normal (applies to MEDGEN non-numeric ([place] results) Medical Service) ID Date Data Source [id number] 01/27/2017 12:00:00 AM EDT MEDGEN ([facility]) Name Value Range Interpretation Description Data Sup porting Code Source(s) Document(s ) Color, Urine Dk Yellow Normal (applies MEDGEN to non-numeric ([place] results) Medical Service) Appearance, Cloudy Above high MEDGEN Urine normal ([place] [facility]) pH, Urine 5.5 Normal (applies MEDGEN to non-numeric ([place] results) Medical Service) Specific gravity 1.029 R.I. Normal (applies MEDGEN of Pericardial to non-numeric ([place] fluid by results) Medical Refractometry Service) Bilirubin, Urine Small Above high MEDGEN normal ([facility]) Blood, Urine Negative Normal (applies MEDGEN to non-numeric ([place] results) Medical Service) Leuk. Esterase, Small Above high MEDGEN U normal ([place] [facility]) Nitrites, Urine Negative Normal (applies MEDGEN to non-numeric ([place] results) Medical Service) Glucose, Urine Negative Normal (applies MEDGEN to non-numeric ([place] results) Medical Service) Ketones, Urine Negative Normal (applies MEDGEN to non-numeric ([place] results) Medical Service) Protein, Urine Negative Normal (applies MEDGEN to non-numeric ([place] results) Medical Service) Urobilinogen, U 0.2 EU/dL Normal (applies MEDGEN to non-numeric ([place] results) Medical Service) RBC, Urine 0-2 Normal (applies MEDGEN to non-numeric ([place] results) Medical Service) WBC, Urine 5-10 Above high MEDGEN normal ([place] [facility]) Bacteria, Urine Few Above high MEDGEN normal ([place] [facility]) Epithelial cells None seen Normal (applies MEDGEN [Presence] in to non-numeric ([place] Unspecified results) Medical specimen by Gram Service) stain Crystals Calcium Above high MEDGEN [#/area] in Body Oxalate normal ([place] fluid by Light Crystals Medical microscopy Service) Yeast [#/area] None seen Normal (applies MEDGEN in Urine by to non-numeric ([place] Automated count results) Medical Service) ID Date Data Source [id number] 01/27/2017 12:00:00 AM EDT MEDGEN ([facility]) Name Value Range Interpretation Code Description Data Supporting Source(s) Document(s ) No Growth No Growth Normal (applies to MEDGEN non-numeric ([place] results) Medical Service) ID Date Data Source [id number] 01/27/2017 12:00:00 AM EDT MEDGEN ([facility]) Name Value Range Interpretation Description Data Sup porting Code Source(s) Document(s ) Color, Urine Dk Yellow Normal (applies MEDGEN to non-numeric ([place] results) Medical Service) Appearance, Cloudy Above high MEDGEN Urine normal ([place] [facility]) pH, Urine 5.5 Normal (applies MEDGEN to non-numeric ([place] results) Medical Service) Specific gravity 1.029 R.I. Normal (applies MEDGEN of Pericardial to non-numeric ([place] fluid by results) Medical Refractometry Service) Bilirubin, Urine Small Above high MEDGEN normal ([place] [facility]) Blood, Urine Negative Normal (applies MEDGEN to non-numeric ([place] results) Medical Service) Leuk. Esterase, Small Above high MEDGEN U normal ([place] [facility]) Nitrites, Urine Negative Normal (applies MEDGEN to non-numeric ([place] results) Medical Service) Glucose, Urine Negative Normal (applies MEDGEN to non-numeric ([place] results) Medical Service) Ketones, Urine Negative Normal (applies MEDGEN to non-numeric ([place] results) Medical Service) Protein, Urine Negative Normal (applies MEDGEN to non-numeric ([place] results) Medical Service) Urobilinogen, U 0.2 EU/dL Normal (applies MEDGEN to non-numeric ([place] results) Medical Service) RBC, Urine 0-2 Normal (applies MEDGEN to non-numeric ([place] results) Medical Service) WBC, Urine 5-10 Above high MEDGEN normal ([place] [facility]) Bacteria, Urine Few Above high MEDGEN normal ([place] [facility]) Epithelial cells None seen Normal (applies MEDGEN [Presence] in to non-numeric ([place] Unspecified results) Medical specimen by Gram Service) stain Crystals Calcium Above high MEDGEN [#/area] in Body Oxalate normal ([place] fluid by Light Crystals Medical microscopy Service) Yeast [#/area] None seen Normal (applies MEDGEN in Urine by to non-numeric ([place] Automated count results) Medical Service) ID Date Data Source [id number] 01/27/2017 12:00:00 AM EDT MEDGEN ([facility]) Name Value Range Interpretation Code Description Data Supporting Source(s) Document(s ) No Growth No Growth Normal (applies to MEDGEN non-numeric ([place] results) Medical Service) ID Date Data Source [id number] 01/27/2017 12:00:00 AM EDT MEDGEN ([facility]) Name Value Range Interpretation Description Data Sup porting Code Source(s) Document(s ) Color, Urine Dk Yellow Normal (applies MEDGEN to non-numeric ([place] results) Medical Service) Appearance, Cloudy Above high MEDGEN Urine normal ([place] [facility]) pH, Urine 5.5 Normal (applies MEDGEN to non-numeric ([place] results) Medical Service) Specific gravity 1.029 R.I. Normal (applies MEDGEN of Pericardial to non-numeric ([place] fluid by results) Medical Refractometry Service) Bilirubin, Urine Small Above high MEDGEN normal ([place] [facility]) Blood, Urine Negative Normal (applies MEDGEN to non-numeric ([place] results) Medical Service) Leuk. Esterase, Small Above high MEDGEN U normal ([place] [facility]) Nitrites, Urine Negative Normal (applies MEDGEN to non-numeric ([place] results) Medical Service) Glucose, Urine Negative Normal (applies MEDGEN to non-numeric ([place] results) Medical Service) Ketones, Urine Negative Normal (applies MEDGEN to non-numeric ([place] results) Medical Service) Protein, Urine Negative Normal (applies MEDGEN to non-numeric ([place] results) Medical Service) Urobilinogen, U 0.2 EU/dL Normal (applies MEDGEN to non-numeric ([place] results) Medical Service) RBC, Urine 0-2 Normal (applies MEDGEN to non-numeric ([place] results) Medical Service) WBC, Urine 5-10 Above high MEDGEN normal ([place] [facility]) Bacteria, Urine Few Above high MEDGEN normal ([place] [facility]) Epithelial cells None seen Normal (applies MEDGEN [Presence] in to non-numeric ([place] Unspecified results) Medical specimen by Gram Service) stain Crystals Calcium Above high MEDGEN [#/area] in Body Oxalate normal ([place] fluid by Light Crystals Medical microscopy Service) Yeast [#/area] None seen Normal (applies MEDGEN in Urine by to non-numeric ([place] Automated count results) Medical Service) ID Date Data Source [id number] 09/20/2016 12:00:00 AM EDT MEDGEN ([facility] Medical Service) Name Value Range Interpretation Description Data Sup porting Code Source(s) Document(s ) Cholesterol 125 Normal (applies MEDGEN [Moles/volume] mg/dL to non-numeric ([place] in Pericardial results) Medical fluid Service) HDL Cholesterol 37 mg/dL Below low normal MEDGEN ([place] [facility]) Cholesterol/HDL 3.4 Normal (applies MEDGEN Ratio to non-numeric ([place] results) Medical Service) Non HDL 88 mg/dL Normal (applies MEDGEN Cholesterol to non-numeric ([place] results) Medical Service) HDL Chol (%) 29.6 % Normal (applies MEDGEN to non-numeric ([place] results) Medical Service) Cholesterol in 67 mg/dL Normal (applies MEDGEN LDL to non-numeric ([place] [Mass/volume] in results) Medical Serum or Plasma Service) by Direct assay Cholesterol in 21 Normal (applies MEDGEN LDL to non-numeric ([place] [Mass/volume] in results) Medical Serum or Plasma Service) by Direct assay Triglycerides 103 Normal (applies MEDGEN mg/dL to non-numeric ([place] results) Medical Service) ID Date Data Source [id number] 09/20/2016 12:00:00 AM EDT MEDGEN ([facility] Medical Service) Name Value Range Interpretation Code Description Data Libra rce(s) Supporting Document(s ) Signal to >11.00 Above high normal MEDGEN Cutoff (Hep ([place] C) Medical Service) ID Date Data Source [id number] 09/20/2016 12:00:00 AM EDT MEDGEN ([facility] Medical Service) Name Value Range Interpretation Description Data Sup porting Code Source(s) Document(s ) Cholesterol 125 Normal (applies MEDGEN [Moles/volume] mg/dL to non-numeric ([place] in Pericardial results) Medical fluid Service) HDL Cholesterol 37 mg/dL Below low normal MEDGEN ([place] [facility]) Cholesterol/HDL 3.4 Normal (applies MEDGEN Ratio to non-numeric ([place] results) Medical Service) Non HDL 88 mg/dL Normal (applies MEDGEN Cholesterol to non-numeric ([place] results) Medical Service) HDL Chol (%) 29.6 % Normal (applies MEDGEN to non-numeric ([place] results) Medical Service) Cholesterol in 67 mg/dL Normal (applies MEDGEN LDL to non-numeric ([place] [Mass/volume] in results) Medical Serum or Plasma Service) by Direct assay Cholesterol in 21 Normal (applies MEDGEN LDL to non-numeric ([place] [Mass/volume] in results) Medical Serum or Plasma Service) by Direct assay Triglycerides 103 Normal (applies MEDGEN mg/dL to non-numeric ([place] results) Medical Service) ID Date Data Source [id number] 09/20/2016 12:00:00 AM EDT MEDGEN ([facility] Medical Service) Name Value Range Interpretation Code Description Data Libra rce(s) Supporting Document(s ) Signal to >11.00 Above high normal MEDGEN Cutoff (Hep ([place] C) Medical Service) ID Date Data Source [id number] 09/20/2016 12:00:00 AM EDT MEDGEN ([facility] [employer] [facility]) Name Value Range Interpretation Description Data Sup porting Code Source(s) Document(s ) Hepatitis B Nonreactive Normal (applies MEDGEN Core Ab IgM to non-numeric ([place] results) Medical Service) Hepatitis A, Nonreactive Normal (applies MEDGEN IgM to non-numeric ([place] results) Medical Service) Hepatitis B Nonreactive Normal (applies MEDGEN Surface Ag to non-numeric ([place] w/Reflex to results) Medical Confirmation Service) Hepatitis C Ab Reactive Above high MEDGEN (IgG) normal ([place] [facility]) ID Date Data Source [id number] 09/20/2016 12:00:00 AM EDT MEDGEN ([facility] [place] [facility]) Name Value Range Interpretation Code Description Data Libra rce(s) Supporting Document(s ) HCV RNA <15 Above high normal MEDGEN (IU/mL) ([place] [facility]) HCV RNA <1.18 Above high normal MEDGEN (LOG ([place] IU/mL) Medical Service) ID Date Data Source [id number] 09/20/2016 12:00:00 AM EDT MEDGEN ([facility]) Name Value Range Interpretation Description Data Sup porting Code Source(s) Document(s ) Gonorrhea Negative Normal (applies to MEDGEN Amplified non-numeric ([place] Aptima Urine results) Medical Service) Chlamydia Negative Normal (applies to MEDGEN Amplified non-numeric ([place] Aptima Urine results) Medical Service) ID Date Data Source [id number] 09/20/2016 12:00:00 AM EDT MEDGEN ([facility]) Name Value Range Interpretation Description Data Sup porting Code Source(s) Document(s ) Color, Urine Yellow Normal (applies MEDGEN to non-numeric ([place] results) Medical Service) Appearance, Clear Normal (applies MEDGEN Urine to non-numeric ([place] results) Medical Service) pH, Urine 5.5 Normal (applies MEDGEN to non-numeric ([place] results) Medical Service) Specific gravity 1.025 R.I. Normal (applies MEDGEN of Pericardial to non-numeric ([place] fluid by results) Medical Refractometry Service) Bilirubin, Urine Negative Normal (applies MEDGEN to non-numeric ([place] results) Medical Service) Blood, Urine Negative Normal (applies MEDGEN to non-numeric ([place] results) Medical Service) Leuk. Esterase, Trace Above high MEDGEN U normal ([place] [facility]) Nitrites, Urine Negative Normal (applies MEDGEN to non-numeric ([place] results) Medical Service) Glucose, Urine Negative Normal (applies MEDGEN to non-numeric ([place] results) Medical Service) Ketones, Urine Negative Normal (applies MEDGEN to non-numeric ([place] results) Medical Service) Protein, Urine Negative Normal (applies MEDGEN to non-numeric ([place] results) Medical Service) Urobilinogen, U 0.2 EU/dL Normal (applies MEDGEN to non-numeric ([place] results) Medical Service) RBC, Urine 0-2 Normal (applies MEDGEN to non-numeric ([place] results) Medical Service) WBC, Urine None seen Normal (applies MEDGEN to non-numeric ([place] results) Medical Service) Bacteria, Urine None seen Normal (applies MEDGEN to non-numeric ([place] results) Medical Service) Epithelial cells None seen Normal (applies MEDGEN [Presence] in to non-numeric ([place] Unspecified results) Medical specimen by Gram Service) stain Crystals None seen Normal (applies MEDGEN [#/area] in [facility] Medical microscopy Service) Yeast [#/area] None seen Normal (applies MEDGEN in Urine by to non-numeric ([place] Automated count results) Medical Service) ID Date Data Source [id number] 09/20/2016 12:00:00 AM EDT MEDGEN ([facility] Medical Service) Name Value Range Interpretation Description Data Sup porting Code Source(s) Document(s ) White Blood 6.5 Normal (applies to MEDGEN Count x10^3/uL non-numeric ([place] results) Medical Service) Red Blood 5.34 Normal (applies to MEDGEN Count x10^6/uL non-numeric ([place] results) Medical Service) Hemoglobin 16.7 g/dL Normal (applies to MEDGEN [Mass/volume] non-numeric ([place] in Mixed results) Medical venous blood Service) by Oximetry Hematocrit 51.0 % Normal (applies to MEDGEN [Pure volume non-numeric ([place] fraction] of results) Medical Blood by Service) Automated count MCV 95 fL Normal (applies to MEDGEN non-numeric ([place] results) Medical Service) MCH 31.3 pg Normal (applies to MEDGEN non-numeric ([place] results) Medical Service) MCHC 32.8 g/dL Normal (applies to MEDGEN non-numeric ([place] results) Medical Service) Neutrophils% 51.8 % Normal (applies to MEDGEN non-numeric ([place] results) Medical Service) Lymphocytes% 34.9 % Normal (applies to MEDGEN non-numeric ([place] results) Medical Service) Monocytes% 7.2 % Normal (applies to MEDGEN non-numeric ([place] results) Medical Service) Eosinophils% 5.4 % Normal (applies to MEDGEN non-numeric ([place] results) Medical Service) Basophils% 0.8 % Normal (applies to MEDGEN non-numeric ([place] results) Medical Service) Neutrophils, 3.4 Normal (applies to MEDGEN Abs (ANC) x10^3/uL non-numeric ([place] results) Medical Service) Lymphocytes, 2.3 Normal (applies to MEDGEN Abs x10^3/uL non-numeric ([place] results) Medical Service) Monocytes, Abs 0.5 Normal (applies to MEDGEN x10^3/uL non-numeric ([place] results) Medical Service) Eosinophils, 0.3 Normal (applies to MEDGEN Abs x10^3/uL non-numeric ([place] results) Medical Service) Basophils, Abs 0.1 Normal (applies to MEDGEN x10^3/uL non-numeric ([place] results) Medical Service) RDW-CV 14.3 % Normal (applies to MEDGEN non-numeric ([place] results) Medical Service) Platelets 100 Below low normal MEDGEN [#/area] in x10^3/uL ([place] Blood by Medical Microscopy Service) high power field MPV 10.2 fL Normal (applies to MEDGEN non-numeric ([place] results) Medical Service) ID Date Data Source [id number] 09/20/2016 12:00:00 AM EDT MEDGEN ([facility]) Name Value Range Interpretation Description Data Sup porting Code Source(s) Document(s ) PSA, 1.87 Normal (applies to MEDGEN Diagnostic ng/mL non-numeric ([place] results) Medical Service) ID Date Data Source [id number] 09/20/2016 12:00:00 AM EDT MEDGEN ([facility]) Name Value Range Interpretation Description Data Sup porting Code Source(s) Document(s ) Folate 11.42 Normal (applies to MEDGEN [Interpreta ng/mL non-numeric ([place] tion] in results) Medical Blood Service) ID Date Data Source [id number] 09/20/2016 12:00:00 AM EDT MEDGEN ([facility]) Name Value Range Interpretation Description Data Sup porting Code Source(s) Document(s ) Vitamin B12 353 pg/mL Normal (applies to MEDGEN non-numeric ([place] results) Medical Service) ID Date Data Source [id number] 09/20/2016 12:00:00 AM EDT MEDGEN ([facility]) Name Value Range Interpretation Description Data Sup porting Code Source(s) Document(s ) Vitamin D 15.7 Below low normal MEDGEN (25 hydroxy) ng/mL ([facility]) ID Date Data Source [id number] 09/20/2016 12:00:00 AM EDT MEDGEN ([facility]) Name Value Range Interpretation Description Data Sup porting Code Source(s) Document(s ) Testosterone 204 Below low normal MEDGEN [Moles/volume] ng/dL ([place] in Serum or Medical Plasma by Service) Detection limit <= 3.47 pmol/L ID Date Data Source [id number] 09/20/2016 12:00:00 AM EDT [facility] ([facility]) Name Value Range Interpretation Code Description Data Libra rce(s) Supporting Document(s ) Uric Acid 6.0 mg/dL Normal (applies to MEDGEN non-numeric ([place] results) Medical Service) ID Date Data Source [id number] 09/20/2016 12:00:00 AM EDT [facility]GEN ([facility]) Name Value Range Interpretation Description Data Sup porting Code Source(s) Document(s ) Glucose mean 116 mg/dL Normal (applies to MEDGEN value non-numeric ([place] [Moles/volume] results) Medical in Blood Service) Estimated from glycated hemoglobin ID Date Data Source [id number] 09/20/2016 12:00:00 AM EDT [facility] ([facility]) Name Value Range Interpretation Code Description Data Libra rce(s) Supporting Document(s ) GlycoHgb 5.7 % Normal (applies to MEDGEN (A1c) non-numeric ([place] results) Medical Service) ID Date Data Source [id number] 09/20/2016 12:00:00 AM EDT MEDGEN ([facility]) Name Value Range Interpretation Description Data Sup porting Code Source(s) Document(s ) Glucose 99 mg/dL Normal (applies MEDGEN [Mass/volume] in to non-numeric ([place] Urine collected results) Medical for unspecified Service) duration Urea nitrogen 19 mg/dL Normal (applies MEDGEN [Moles/volume] to non-numeric ([place] in Blood results) Medical Service) Creatinine 1.02 Normal (applies MEDGEN [Interpretation] mg/dL to non-numeric ([place] in Urine results) Medical Service) eGFR 91 Normal (applies MEDGEN (calculation) to non-numeric ([place] for results) Medical -[place] Service) s eGFR 75 Normal (applies MEDGEN (calculation) to non-numeric ([place] results) Medical Service) BUN/Creat Ratio 18.6 Normal (applies MEDGEN to non-numeric ([place] results) Medical Service) Sodium 140 Normal (applies MEDGEN [Moles/volume] mmol/L to non-numeric ([place] in Serum, Plasma results) Medical or Blood Service) Potassium 4.3 Normal (applies MEDGEN [Mass/volume] in mmol/L to non-numeric ([place] Blood results) Medical Service) Chloride 107 Normal (applies MEDGEN [Moles/volume] mmol/L to non-numeric ([place] in Serum, Plasma results) Medical or Blood Service) Carbon dioxide 25 Normal (applies MEDGEN [VFr/PPres] in mmol/L to non-numeric ([place] Gas [employer] results) Medical system Service) Calcium 9.2 Normal (applies MEDGEN [Moles/volume] mg/dL to non-numeric ([place] in Urine results) Medical collected for Service) unspecified duration Protein, Total 6.8 g/dL Normal (applies MEDGEN to non-numeric ([place] results) Medical Service) Microalbumin 4.2 g/dL Normal (applies MEDGEN [Mass/time] in to non-numeric ([place] Urine collected results) Medical for unspecified Service) duration Globulin 2.6 g/dL Normal (applies MEDGEN [Mass/time] in to non-numeric ([place] 24 hour Urine results) Medical Service) A/G Ratio 1.6 Normal (applies MEDGEN Ratio to non-numeric ([place] results) Medical Service) Alkaline 92 IU/L Normal (applies MEDGEN phosphatase to non-numeric ([place] [Enzymatic results) Medical activity/volume] Service) in Serum, Plasma or Blood AST 31 IU/L Normal (applies MEDGEN to non-numeric ([place] results) Medical Service) ALT 44 IU/L Normal (applies MEDGEN to non-numeric ([place] results) Medical Service) Bilirubin, Total 0.8 Normal (applies MEDGEN mg/dL to non-numeric ([place] results) Medical Service) ID Date Data Source [id number] 09/20/2016 12:00:00 AM EDT MEDGEN ([facility]) Name Value Range Interpretation Description Data Sup porting Code Source(s) Document(s ) Thyroxine (T4) 10.6 Normal (applies to MEDGEN ug/dL non-numeric ([place] results) Medical Service) T3-Uptake 32.7 % Normal (applies to MEDGEN non-numeric ([place] results) Medical Service) Free Thyroxine 3.5 ng/dL Normal (applies to MEDGEN Index (FTI) non-numeric ([place] results) Medical Service) TSH 3rd 1.12 Normal (applies to MEDGEN Generation uIU/mL non-numeric ([place] Ultra results) Medical Service) ID Date Data Source [id number] 09/20/2016 12:00:00 AM EDT [facility] ([facility]) Name Value Range Interpretation Code Description Data Libra rce(s) Supporting Document(s ) HIV Ag Non-Reacti Normal (applies to MEDGEN and Abs ve non-numeric ([place] results) Medical Service) ID Date Data Source [id number] 09/20/2016 12:00:00 AM EDT MEDGEN ([facility] Service) Name Value Range Interpretation Description Data Sup porting Code Source(s) Document(s ) Cholesterol 125 Normal (applies MEDGEN [Moles/volume] mg/dL to non-numeric ([place] in Pericardial results) Medical fluid Service) HDL Cholesterol 37 mg/dL Below low normal MEDGEN ([place] [facility]) Cholesterol/HDL 3.4 Normal (applies MEDGEN Ratio to non-numeric ([place] results) Medical Service) Non HDL 88 mg/dL Normal (applies MEDGEN Cholesterol to non-numeric ([place] results) Medical Service) HDL Chol (%) 29.6 % Normal (applies MEDGEN to non-numeric ([place] results) Medical Service) Cholesterol in 67 mg/dL Normal (applies MEDGEN LDL to non-numeric ([place] [Mass/volume] in results) Medical Serum or Plasma Service) by Direct assay Cholesterol in 21 Normal (applies MEDGEN LDL to non-numeric ([place] [Mass/volume] in results) Medical Serum or Plasma Service) by Direct assay Triglycerides 103 Normal (applies MEDGEN mg/dL to non-numeric ([place] results) Medical Service) ID Date Data Source [id number] 09/20/2016 12:00:00 AM EDT [facility] ([facility]) Name Value Range Interpretation Code Description Data Libra rce(s) Supporting Document(s ) Signal to >11.00 Above high normal MEDGEN Cutoff (Hep ([place] C) Medical Service) ID Date Data Source [id number] 09/20/2016 12:00:00 AM EDT [facility] ([facility]) Name Value Range Interpretation Description Data Sup porting Code Source(s) Document(s ) Hepatitis B Nonreactive Normal (applies MEDGEN Core Ab IgM to non-numeric ([place] results) Medical Service) Hepatitis A, Nonreactive Normal (applies MEDGEN IgM to non-numeric ([place] results) Medical Service) Hepatitis B Nonreactive Normal (applies MEDGEN Surface Ag to non-numeric ([place] w/Reflex to results) Medical Confirmation Service) Hepatitis C Ab Reactive Above high MEDGEN (IgG) normal ([place] [facility] Service) ID Date Data Source [id number] 09/20/2016 12:00:00 AM EDT [facility] ([facility]) Name Value Range Interpretation Code Description Data Libra rce(s) Supporting Document(s ) HCV RNA <15 Above high normal MEDGEN (IU/mL) ([place] [facility] Service) HCV RNA <1.18 Above high normal MEDGEN (LOG ([place] IU/mL) Medical Service) ID Date Data Source [id number] 09/20/2016 12:00:00 AM EDT [facility] ([facility]) Name Value Range Interpretation Description Data Sup porting Code Source(s) Document(s ) Gonorrhea Negative Normal (applies to MEDGEN Amplified non-numeric ([place] Aptima Urine results) Medical Service) Chlamydia Negative Normal (applies to MEDGEN Amplified non-numeric ([place] Aptima Urine results) Medical Service) ID Date Data Source [id number] 09/20/2016 12:00:00 AM EDT MEDGEN ([facility]) Name Value Range Interpretation Description Data Sup porting Code Source(s) Document(s ) Color, Urine Yellow Normal (applies MEDGEN to non-numeric ([place] results) Medical Service) Appearance, Clear Normal (applies MEDGEN Urine to non-numeric ([place] results) Medical Service) pH, Urine 5.5 Normal (applies [facility]GEN to non-numeric ([place] results) Medical Service) Specific gravity 1.025 R.I. Normal (applies MEDGEN of Pericardial to non-numeric ([place] fluid by results) Medical Refractometry Service) Bilirubin, Urine Negative Normal (applies [facility]GEN to non-numeric ([place] results) Medical Service) Blood, Urine Negative Normal (applies [facility]GEN to non-numeric ([place] results) Medical Service) Leuk. Esterase, Trace Above high MEDGEN U normal ([place] Medical Service) Nitrites, Urine Negative Normal (applies [facility]GEN to non-numeric ([place] results) Medical Service) Glucose, Urine Negative Normal (applies [facility]GEN to non-numeric ([place] results) Medical Service) Ketones, Urine Negative Normal (applies [facility]GEN to non-numeric ([place] results) Medical Service) Protein, Urine Negative Normal (applies [facility]GEN to non-numeric ([place] results) Medical Service) Urobilinogen, U 0.2 EU/dL Normal (applies [facility]GEN to non-numeric ([place] results) Medical Service) RBC, Urine 0-2 Normal (applies [facility]GEN to non-numeric ([place] results) Medical Service) WBC, Urine None seen Normal (applies [facility]GEN to non-numeric ([place] results) Medical Service) Bacteria, Urine None seen Normal (applies [facility]GEN to non-numeric ([place] results) Medical Service) Epithelial cells None seen Normal (applies MEDGEN [Presence] in to non-numeric ([place] Unspecified results) Medical specimen by Gram Service) stain Crystals None seen Normal (applies [facility] [#/area] in [facility] Medical microscopy Service) Yeast [#/area] None seen Normal (applies [facility]GEN in Urine by to non-numeric ([place] Automated count results) Medical Service) ID Date Data Source [id number] 09/20/2016 12:00:00 AM EDT [facility] ([facility] Medical Service) Name Value Range Interpretation Description Data Sup porting Code Source(s) Document(s ) White Blood 6.5 Normal (applies to MEDGEN Count x10^3/uL non-numeric ([place] results) Medical Service) Red Blood 5.34 Normal (applies to MEDGEN Count x10^6/uL non-numeric ([place] results) Medical Service) Hemoglobin 16.7 g/dL Normal (applies to MEDGEN [Mass/volume] non-numeric ([place] in Mixed results) Medical venous blood Service) by Oximetry Hematocrit 51.0 % Normal (applies to MEDGEN [Pure volume non-numeric ([place] fraction] of results) Medical Blood by Service) Automated count MCV 95 fL Normal (applies to MEDGEN non-numeric ([place] results) Medical Service) MCH 31.3 pg Normal (applies to MEDGEN non-numeric ([place] results) Medical Service) MCHC 32.8 g/dL Normal (applies to MEDGEN non-numeric ([place] results) Medical Service) Neutrophils% 51.8 % Normal (applies to MEDGEN non-numeric ([place] results) Medical Service) Lymphocytes% 34.9 % Normal (applies to MEDGEN non-numeric ([place] results) Medical Service) Monocytes% 7.2 % Normal (applies to MEDGEN non-numeric ([place] results) Medical Service) Eosinophils% 5.4 % Normal (applies to [facility]GEN non-numeric ([place] results) Medical Service) Basophils% 0.8 % Normal (applies to MEDGEN non-numeric ([place] results) Medical Service) Neutrophils, 3.4 Normal (applies to MEDGEN Abs (ANC) x10^3/uL non-numeric ([place] results) Medical Service) Lymphocytes, 2.3 Normal (applies to MEDGEN Abs x10^3/uL non-numeric ([place] results) Medical Service) Monocytes, Abs 0.5 Normal (applies to MEDGEN x10^3/uL non-numeric ([place] results) Medical Service) Eosinophils, 0.3 Normal (applies to MEDGEN Abs x10^3/uL non-numeric ([place] results) Medical Service) Basophils, Abs 0.1 Normal (applies to MEDGEN x10^3/uL non-numeric ([place] results) Medical Service) RDW-CV 14.3 % Normal (applies to MEDGEN non-numeric ([place] results) Medical Service) Platelets 100 Below low normal MEDGEN [#/area] in x10^3/uL ([place] Blood by Medical Microscopy Service) high power field MPV 10.2 fL Normal (applies to MEDGEN non-numeric ([place] results) Medical Service) ID Date Data Source [id number] 09/20/2016 12:00:00 AM EDT [facility] ([facility]) Name Value Range Interpretation Description Data Sup porting Code Source(s) Document(s ) PSA, 1.87 Normal (applies to MEDGEN Diagnostic ng/mL non-numeric ([place] results) Medical Service) ID Date Data Source [id number] 09/20/2016 12:00:00 AM EDT MED[facility] ([facility]) Name Value Range Interpretation Description Data Sup porting Code Source(s) Document(s ) Folate 11.42 Normal (applies to MEDGEN [Interpreta ng/mL non-numeric ([place] tion] in results) Medical Blood Service) ID Date Data Source [id number] 09/20/2016 12:00:00 AM EDT [facility] ([facility]) Name Value Range Interpretation Description Data Sup porting Code Source(s) Document(s ) Vitamin B12 353 pg/mL Normal (applies to MEDGEN non-numeric ([place] results) Medical Service) ID Date Data Source [id number] 09/20/2016 12:00:00 AM EDT [facility] ([facility]) Name Value Range Interpretation Description Data Sup porting Code Source(s) Document(s ) Vitamin D 15.7 Below low normal MED[facility] (25 hydroxy) ng/mL ([facility] Service) ID Date Data Source [id number] 09/20/2016 12:00:00 AM EDT [facility] ([facility]) Name Value Range Interpretation Description Data Sup porting Code Source(s) Document(s ) Testosterone 204 Below low normal MEDGEN [Moles/volume] ng/dL ([place] in Serum or Medical Plasma by Service) Detection limit <= 3.47 pmol/L ID Date Data Source [id number] 09/20/2016 12:00:00 AM EDT [facility] ([facility]) Name Value Range Interpretation Code Description Data Libra rce(s) Supporting Document(s ) Uric Acid 6.0 mg/dL Normal (applies to MEDGEN non-numeric ([place] results) Medical Service) ID Date Data Source [id number] 09/20/2016 12:00:00 AM EDT [facility] ([facility]) Name Value Range Interpretation Description Data Sup porting Code Source(s) Document(s ) Glucose mean 116 mg/dL Normal (applies to MEDGEN value non-numeric ([place] [Moles/volume] results) Medical in Blood Service) Estimated from glycated hemoglobin ID Date Data Source [id number] 09/20/2016 12:00:00 AM EDT MEDGEN ([facility] Medical Service) Name Value Range Interpretation Code Description Data Libra rce(s) Supporting Document(s ) GlycoHgb 5.7 % Normal (applies to MEDGEN (A1c) non-numeric ([place] results) Medical Service) ID Date Data Source [id number] 09/20/2016 12:00:00 AM EDT [facility] ([facility] Medical [facility]) Name Value Range Interpretation Description Data Sup porting Code Source(s) Document(s ) Glucose 99 mg/dL Normal (applies MEDGEN [Mass/volume] in to non-numeric ([place] Urine collected results) Medical for unspecified Service) duration Urea nitrogen 19 mg/dL Normal (applies MEDGEN [Moles/volume] to non-numeric ([place] in Blood results) Medical Service) Creatinine 1.02 Normal (applies MEDGEN [Interpretation] mg/dL to non-numeric ([place] in Urine results) Medical Service) eGFR 91 Normal (applies MEDGEN (calculation) to non-numeric ([place] for results) Medical -[place] Service) s eGFR 75 Normal (applies MEDGEN (calculation) to non-numeric ([place] results) Medical Service) BUN/Creat Ratio 18.6 Normal (applies MEDGEN to non-numeric ([place] results) Medical Service) Sodium 140 Normal (applies MEDGEN [Moles/volume] mmol/L to non-numeric ([place] in Serum, Plasma results) Medical or Blood Service) Potassium 4.3 Normal (applies MEDGEN [Mass/volume] in mmol/L to non-numeric ([place] Blood results) Medical Service) Chloride 107 Normal (applies MEDGEN [Moles/volume] mmol/L to non-numeric ([place] in Serum, Plasma results) Medical or Blood Service) Carbon dioxide 25 Normal (applies MEDGEN [VFr/PPres] in mmol/L to non-numeric ([place] Gas delivery results) Medical system Service) Calcium 9.2 Normal (applies MEDGEN [Moles/volume] mg/dL to non-numeric ([place] in Urine results) Medical collected for Service) unspecified duration Protein, Total 6.8 g/dL Normal (applies MEDGEN to non-numeric ([place] results) Medical Service) Microalbumin 4.2 g/dL Normal (applies MEDGEN [Mass/time] in to non-numeric ([place] Urine collected results) Medical for unspecified Service) duration Globulin 2.6 g/dL Normal (applies MEDGEN [Mass/time] in to non-numeric ([place] 24 hour Urine results) Medical Service) A/G Ratio 1.6 Normal (applies MEDGEN Ratio to non-numeric ([place] results) Medical Service) Alkaline 92 IU/L Normal (applies MEDGEN phosphatase to non-numeric ([place] [Enzymatic results) Medical activity/volume] Service) in Serum, Plasma or Blood AST 31 IU/L Normal (applies MEDGEN to non-numeric ([place] results) Medical Service) ALT 44 IU/L Normal (applies MEDGEN to non-numeric ([place] results) Medical Service) Bilirubin, Total 0.8 Normal (applies MEDGEN mg/dL to non-numeric ([place] results) Medical Service) ID Date Data Source [id number] 09/20/2016 12:00:00 AM EDT [facility] ([facility]) Name Value Range Interpretation Description Data Sup porting Code Source(s) Document(s ) Thyroxine (T4) 10.6 Normal (applies to MEDGEN ug/dL non-numeric ([place] results) Medical Service) T3-Uptake 32.7 % Normal (applies to MEDGEN non-numeric ([place] results) Medical Service) Free Thyroxine 3.5 ng/dL Normal (applies to MEDGEN Index (FTI) non-numeric ([place] results) Medical Service) TSH 3rd 1.12 Normal (applies to MEDGEN Generation uIU/mL non-numeric ([place] Ultra results) Medical Service) ID Date Data Source [id number] 09/20/2016 12:00:00 AM EDT [facility] ([facility]) Name Value Range Interpretation Code Description Data Libra rce(s) Supporting Document(s ) HIV Ag Non-Reacti Normal (applies to MEDGEN and Abs ve non-numeric ([place] results) Medical Service) ID Date Data Source [id number] 09/20/2016 12:00:00 AM EDT [facility] ([facility]) Name Value Range Interpretation Description Data Sup porting Code Source(s) Document(s ) PSA, 1.87 Normal (applies to MEDGEN Diagnostic ng/mL non-numeric ([place] results) Medical Service) ID Date Data Source [id number] 09/20/2016 12:00:00 AM EDT [facility] ([facility]) Name Value Range Interpretation Description Data Sup porting Code Source(s) Document(s ) Folate 11.42 Normal (applies to MEDGEN [Interpreta ng/mL non-numeric ([place] tion] in results) Medical Blood Service) ID Date Data Source [id number] 09/20/2016 12:00:00 AM EDT [facility] ([facility]) Name Value Range Interpretation Description Data Sup porting Code Source(s) Document(s ) Vitamin B12 353 pg/mL Normal (applies to MEDGEN non-numeric ([place] results) Medical Service) ID Date Data Source [id number] 09/20/2016 12:00:00 AM EDT [facility] ([facility]) Name Value Range Interpretation Description Data Sup porting Code Source(s) Document(s ) Vitamin D 15.7 Below low normal MED[facility] (25 hydroxy) ng/mL ([facility] Medical Service) ID Date Data Source [id number] 09/20/2016 12:00:00 AM EDT [facility] ([facility]) Name Value Range Interpretation Description Data Sup porting Code Source(s) Document(s ) Testosterone 204 Below low normal MEDGEN [Moles/volume] ng/dL ([place] in Serum or Medical Plasma by Service) Detection limit <= 3.47 pmol/L ID Date Data Source [id number] 09/20/2016 12:00:00 AM EDT [facility] ([facility]) Name Value Range Interpretation Code Description Data Libra rce(s) Supporting Document(s ) Uric Acid 6.0 mg/dL Normal (applies to MEDGEN non-numeric ([place] results) Medical Service) ID Date Data Source [id number] 09/20/2016 12:00:00 AM EDT [facility] ([facility]) Name Value Range Interpretation Description Data Sup porting Code Source(s) Document(s ) Glucose mean 116 mg/dL Normal (applies to MEDGEN value non-numeric ([place] [Moles/volume] results) Medical in Blood Service) Estimated from glycated hemoglobin ID Date Data Source [id number] 09/20/2016 12:00:00 AM EDT [facility] ([facility]) Name Value Range Interpretation Code Description Data Libra rce(s) Supporting Document(s ) GlycoHgb 5.7 % Normal (applies to MEDGEN (A1c) non-numeric ([place] results) Medical Service) ID Date Data Source [id number] 09/20/2016 12:00:00 AM EDT MEDGEN ([facility] Medical Service) Name Value Range Interpretation Description Data Sup porting Code Source(s) Document(s ) Glucose 99 mg/dL Normal (applies MEDGEN [Mass/volume] in to non-numeric ([place] Urine collected results) Medical for unspecified Service) duration Urea nitrogen 19 mg/dL Normal (applies MEDGEN [Moles/volume] to non-numeric ([place] in Blood results) Medical Service) Creatinine 1.02 Normal (applies MEDGEN [Interpretation] mg/dL to non-numeric ([place] in Urine results) Medical Service) eGFR 91 Normal (applies MEDGEN (calculation) to non-numeric ([place] for results) Medical -[place] Service) s eGFR 75 Normal (applies MEDGEN (calculation) to non-numeric ([place] results) Medical Service) BUN/Creat Ratio 18.6 Normal (applies MEDGEN to non-numeric ([place] results) Medical Service) Sodium 140 Normal (applies MEDGEN [Moles/volume] mmol/L to non-numeric ([place] in Serum, Plasma results) Medical or Blood Service) Potassium 4.3 Normal (applies MEDGEN [Mass/volume] in mmol/L to non-numeric ([place] Blood results) Medical Service) Chloride 107 Normal (applies MEDGEN [Moles/volume] mmol/L to non-numeric ([place] in Serum, Plasma results) Medical or Blood Service) Carbon dioxide 25 Normal (applies MEDGEN [VFr/PPres] in mmol/L to non-numeric ([place] Gas delivery results) Medical system Service) Calcium 9.2 Normal (applies MEDGEN [Moles/volume] mg/dL to non-numeric ([place] in Urine results) Medical collected for Service) unspecified duration Protein, Total 6.8 g/dL Normal (applies MEDGEN to non-numeric ([place] results) Medical Service) Microalbumin 4.2 g/dL Normal (applies MEDGEN [Mass/time] in to non-numeric ([place] Urine collected results) Medical for unspecified Service) duration Globulin 2.6 g/dL Normal (applies MEDGEN [Mass/time] in to non-numeric ([place] 24 hour Urine results) Medical Service) A/G Ratio 1.6 Normal (applies MEDGEN Ratio to non-numeric ([place] results) Medical Service) Alkaline 92 IU/L Normal (applies MEDGEN phosphatase to non-numeric ([place] [Enzymatic results) Medical activity/volume] Service) in Serum, Plasma or Blood AST 31 IU/L Normal (applies MEDGEN to non-numeric ([place] results) Medical Service) ALT 44 IU/L Normal (applies MEDGEN to non-numeric ([place] results) Medical Service) Bilirubin, Total 0.8 Normal (applies MEDGEN mg/dL to non-numeric ([place] results) Medical Service) ID Date Data Source [id number] 09/20/2016 12:00:00 AM EDT [facility] ([facility]) Name Value Range Interpretation Description Data Sup porting Code Source(s) Document(s ) Thyroxine (T4) 10.6 Normal (applies to MEDGEN ug/dL non-numeric ([place] results) Medical Service) T3-Uptake 32.7 % Normal (applies to MEDGEN non-numeric ([place] results) Medical Service) Free Thyroxine 3.5 ng/dL Normal (applies to MEDGEN Index (FTI) non-numeric ([place] results) Medical Service) TSH 3rd 1.12 Normal (applies to MEDGEN Generation uIU/mL non-numeric ([place] Ultra results) Medical Service) ID Date Data Source [id number] 09/20/2016 12:00:00 AM EDT [facility] ([facility]) Name Value Range Interpretation Code Description Data Libra rce(s) Supporting Document(s ) HIV Ag Non-Reacti Normal (applies to MEDGEN and Abs ve non-numeric ([place] results) Medical Service) ID Date Data Source [id number] 09/20/2016 12:00:00 AM EDT [facility] ([facility]) Name Value Range Interpretation Description Data Sup porting Code Source(s) Document(s ) Cholesterol 125 Normal (applies MEDGEN [Moles/volume] mg/dL to non-numeric ([place] in Pericardial results) Medical fluid Service) HDL Cholesterol 37 mg/dL Below low normal [facility] ([place] Medical Service) Cholesterol/HDL 3.4 Normal (applies MEDGEN Ratio to non-numeric ([place] results) Medical Service) Non HDL 88 mg/dL Normal (applies MEDGEN Cholesterol to non-numeric ([place] results) Medical Service) HDL Chol (%) 29.6 % Normal (applies MEDGEN to non-numeric ([place] results) Medical Service) Cholesterol in 67 mg/dL Normal (applies MEDGEN LDL to non-numeric ([place] [Mass/volume] in results) Medical Serum or Plasma Service) by Direct assay Cholesterol in 21 Normal (applies MEDGEN LDL to non-numeric ([place] [Mass/volume] in results) Medical Serum or Plasma Service) by Direct assay Triglycerides 103 Normal (applies MEDGEN mg/dL to non-numeric ([place] results) Medical Service) ID Date Data Source [id number] 09/20/2016 12:00:00 AM EDT MEDGEN ([facility] Medical Service) Name Value Range Interpretation Code Description Data Libra rce(s) Supporting Document(s ) Signal to >11.00 Above high normal MEDGEN Cutoff (Hep ([place] C) Medical Service) ID Date Data Source [id number] 09/20/2016 12:00:00 AM EDT MEDGEN ([facility] Medical Service) Name Value Range Interpretation Description Data Sup porting Code Source(s) Document(s ) Hepatitis B Nonreactive Normal (applies MEDGEN Core Ab IgM to non-numeric ([place] results) Medical Service) Hepatitis A, Nonreactive Normal (applies MEDGEN IgM to non-numeric ([place] results) Medical Service) Hepatitis B Nonreactive Normal (applies MEDGEN Surface Ag to non-numeric ([place] w/Reflex to results) Medical Confirmation Service) Hepatitis C Ab Reactive Above high MEDGEN (IgG) normal ([place] Medical Service) ID Date Data Source [id number] 09/20/2016 12:00:00 AM EDT MEDGEN ([facility] Medical Service) Name Value Range Interpretation Code Description Data Libra rce(s) Supporting Document(s ) HCV RNA <15 Above high normal MEDGEN (IU/mL) ([place] Medical Service) HCV RNA <1.18 Above high normal MEDGEN (LOG ([place] IU/mL) Medical Service) ID Date Data Source [id number] 09/20/2016 12:00:00 AM EDT MEDGEN ([facility] Medical Service) Name Value Range Interpretation Description Data Sup porting Code Source(s) Document(s ) Gonorrhea Negative Normal (applies to MEDGEN Amplified non-numeric ([place] Aptima Urine results) Medical Service) Chlamydia Negative Normal (applies to MEDGEN Amplified non-numeric ([place] Aptima Urine results) Medical Service) ID Date Data Source [id number] 09/20/2016 12:00:00 AM EDT MEDGEN ([facility] Medical [facility]) Name Value Range Interpretation Description Data Sup porting Code Source(s) Document(s ) Color, Urine Yellow Normal (applies MEDGEN to non-numeric ([place] results) Medical Service) Appearance, Clear Normal (applies MEDGEN Urine to non-numeric ([place] results) Medical Service) Specific gravity 1.025 R.I. Normal (applies MEDGEN of Pericardial to non-numeric ([place] fluid by results) Medical Refractometry Service) pH, Urine 5.5 Normal (applies MEDGEN to non-numeric ([place] results) Medical Service) Bilirubin, Urine Negative Normal (applies MEDGEN to non-numeric ([place] results) Medical Service) Blood, Urine Negative Normal (applies MEDGEN to non-numeric ([place] results) Medical Service) Leuk. Esterase, Trace Above high MEDGEN U normal ([place] Medical Service) Nitrites, Urine Negative Normal (applies MEDGEN to non-numeric ([place] results) Medical Service) Glucose, Urine Negative Normal (applies MEDGEN to non-numeric ([place] results) Medical Service) Ketones, Urine Negative Normal (applies MEDGEN to non-numeric ([place] results) Medical Service) Protein, Urine Negative Normal (applies MEDGEN to non-numeric ([place] results) Medical Service) Urobilinogen, U 0.2 EU/dL Normal (applies MEDGEN to non-numeric ([place] results) Medical Service) RBC, Urine 0-2 Normal (applies MEDGEN to non-numeric ([place] results) Medical Service) WBC, Urine None seen Normal (applies MEDGEN to non-numeric ([place] results) Medical Service) Bacteria, Urine None seen Normal (applies MEDGEN to non-numeric ([place] results) Medical Service) Epithelial cells None seen Normal (applies MEDGEN [Presence] in to non-numeric ([place] Unspecified results) Medical specimen by Gram Service) stain Crystals None seen Normal (applies MEDGEN [#/area] in Body to non-numeric [facility] Medical microscopy Service) Yeast [#/area] None seen Normal (applies MEDGEN in Urine by to non-numeric ([place] Automated count results) Medical Service) ID Date Data Source [id number] 09/20/2016 12:00:00 AM EDT [facility] ([facility] Medical Service) Name Value Range Interpretation Description Data Sup porting Code Source(s) Document(s ) White Blood 6.5 Normal (applies to MEDGEN Count x10^3/uL non-numeric ([place] results) Medical Service) Red Blood 5.34 Normal (applies to MEDGEN Count x10^6/uL non-numeric ([place] results) Medical Service) Hemoglobin 16.7 g/dL Normal (applies to MEDGEN [Mass/volume] non-numeric ([place] in Mixed results) Medical venous blood Service) by Oximetry Hematocrit 51.0 % Normal (applies to MEDGEN [Pure volume non-numeric ([place] fraction] of results) Medical Blood by Service) Automated count MCV 95 fL Normal (applies to MEDGEN non-numeric ([place] results) Medical Service) MCH 31.3 pg Normal (applies to MEDGEN non-numeric ([place] results) Medical Service) MCHC 32.8 g/dL Normal (applies to MEDGEN non-numeric ([place] results) Medical Service) Lymphocytes% 34.9 % Normal (applies to MEDGEN non-numeric ([place] results) Medical Service) Neutrophils% 51.8 % Normal (applies to MEDGEN non-numeric ([place] results) Medical Service) Monocytes% 7.2 % Normal (applies to MEDGEN non-numeric ([place] results) Medical Service) Eosinophils% 5.4 % Normal (applies to MEDGEN non-numeric ([place] results) Medical Service) Basophils% 0.8 % Normal (applies to MEDGEN non-numeric ([place] results) Medical Service) Neutrophils, 3.4 Normal (applies to MEDGEN Abs (ANC) x10^3/uL non-numeric ([place] results) Medical Service) Lymphocytes, 2.3 Normal (applies to MEDGEN Abs x10^3/uL non-numeric ([place] results) Medical Service) Monocytes, Abs 0.5 Normal (applies to MEDGEN x10^3/uL non-numeric ([place] results) Medical Service) Eosinophils, 0.3 Normal (applies to MEDGEN Abs x10^3/uL non-numeric ([place] results) Medical Service) RDW-CV 14.3 % Normal (applies to MEDGEN non-numeric ([place] results) Medical Service) Basophils, Abs 0.1 Normal (applies to MEDGEN x10^3/uL non-numeric ([place] results) Medical Service) Platelets 100 Below low normal MEDGEN [#/area] in x10^3/uL ([place] Blood by Medical Microscopy Service) high power field MPV 10.2 fL Normal (applies to MEDGEN non-numeric ([place] results) Medical Service) ID Date Data Source [id number] 09/20/2016 12:00:00 AM EDT [facility] ([facility] [place] [facility]) Name Value Range Interpretation Description Data Sup porting Code Source(s) Document(s ) PSA, 1.87 Normal (applies to MEDGEN Diagnostic ng/mL non-numeric ([place] results) Medical Service) ID Date Data Source [id number] 09/20/2016 12:00:00 AM EDT MED[facility] ([facility]) Name Value Range Interpretation Description Data Sup porting Code Source(s) Document(s ) Folate 11.42 Normal (applies to MEDGEN [Interpreta ng/mL non-numeric ([place] tion] in results) Medical Blood Service) ID Date Data Source [id number] 09/20/2016 12:00:00 AM EDT [facility] ([facility]) Name Value Range Interpretation Description Data Sup porting Code Source(s) Document(s ) Vitamin B12 353 pg/mL Normal (applies to MEDGEN non-numeric ([place] results) Medical Service) ID Date Data Source [id number] 09/20/2016 12:00:00 AM EDT [facility] ([facility]) Name Value Range Interpretation Description Data Sup porting Code Source(s) Document(s ) Vitamin D 15.7 Below low normal MED[facility] (25 hydroxy) ng/mL ([place] Medical Service) ID Date Data Source [id number] 09/20/2016 12:00:00 AM EDT [facility] ([facility]) Name Value Range Interpretation Description Data Sup porting Code Source(s) Document(s ) Testosterone 204 Below low normal MEDGEN [Moles/volume] ng/dL ([place] in Serum or Medical Plasma by Service) Detection limit <= 3.47 pmol/L ID Date Data Source [id number] 09/20/2016 12:00:00 AM EDT [facility] ([facility]) Name Value Range Interpretation Code Description Data Libra rce(s) Supporting Document(s ) Uric Acid 6.0 mg/dL Normal (applies to MEDGEN non-numeric ([place] results) Medical Service) ID Date Data Source [id number] 09/20/2016 12:00:00 AM EDT MED[facility] ([facility]) Name Value Range Interpretation Description Data Sup porting Code Source(s) Document(s ) Glucose mean 116 mg/dL Normal (applies to MEDGEN value non-numeric ([place] [Moles/volume] results) Medical in Blood Service) Estimated from glycated hemoglobin ID Date Data Source [id number] 09/20/2016 12:00:00 AM EDT MED[facility] ([facility]) Name Value Range Interpretation Code Description Data Libra rce(s) Supporting Document(s ) GlycoHgb 5.7 % Normal (applies to MEDGEN (A1c) non-numeric ([place] results) Medical Service) ID Date Data Source [id number] 09/20/2016 12:00:00 AM EDT MED[facility] ([facility] Service) Name Value Range Interpretation Description Data Sup porting Code Source(s) Document(s ) Urea nitrogen 19 mg/dL Normal (applies MEDGEN [Moles/volume] to non-numeric ([place] in Blood results) Medical Service) Glucose 99 mg/dL Normal (applies MEDGEN [Mass/volume] in to non-numeric ([place] Urine collected results) Medical for unspecified Service) duration Creatinine 1.02 Normal (applies MEDGEN [Interpretation] mg/dL to non-numeric ([place] in Urine results) Medical Service) eGFR 91 Normal (applies MEDGEN (calculation) to non-numeric ([place] for results) Medical -[place] Service) s eGFR 75 Normal (applies MEDGEN (calculation) to non-numeric ([place] results) Medical Service) BUN/Creat Ratio 18.6 Normal (applies MEDGEN to non-numeric ([place] results) Medical Service) Sodium 140 Normal (applies MEDGEN [Moles/volume] mmol/L to non-numeric ([place] in Serum, Plasma results) Medical or Blood Service) Potassium 4.3 Normal (applies MEDGEN [Mass/volume] in mmol/L to non-numeric ([place] Blood results) Medical Service) Chloride 107 Normal (applies MEDGEN [Moles/volume] mmol/L to non-numeric ([place] in Serum, Plasma results) Medical or Blood Service) Carbon dioxide 25 Normal (applies MEDGEN [VFr/PPres] in mmol/L to non-numeric ([place] Gas delivery results) Medical system Service) Calcium 9.2 Normal (applies MEDGEN [Moles/volume] mg/dL to non-numeric ([place] in Urine results) Medical collected for Service) unspecified duration Protein, Total 6.8 g/dL Normal (applies MEDGEN to non-numeric ([place] results) Medical Service) Microalbumin 4.2 g/dL Normal (applies MEDGEN [Mass/time] in to non-numeric ([place] Urine collected results) Medical for unspecified Service) duration Globulin 2.6 g/dL Normal (applies MEDGEN [Mass/time] in to non-numeric ([place] 24 hour Urine results) Medical Service) A/G Ratio 1.6 Normal (applies MEDGEN Ratio to non-numeric ([place] results) Medical Service) Alkaline 92 IU/L Normal (applies MEDGEN phosphatase to non-numeric ([place] [Enzymatic results) Medical activity/volume] Service) in Serum, Plasma or Blood AST 31 IU/L Normal (applies MEDGEN to non-numeric ([place] results) Medical Service) ALT 44 IU/L Normal (applies MEDGEN to non-numeric ([place] results) Medical Service) Bilirubin, Total 0.8 Normal (applies MEDGEN mg/dL to non-numeric ([place] results) Medical Service) ID Date Data Source [id number] 09/20/2016 12:00:00 AM EDT [facility] ([facility]) Name Value Range Interpretation Description Data Sup porting Code Source(s) Document(s ) Thyroxine (T4) 10.6 Normal (applies to MED[facility] ug/dL non-numeric ([place] results) Medical Service) T3-Uptake 32.7 % Normal (applies to MEDGEN non-numeric ([place] results) Medical Service) Free Thyroxine 3.5 ng/dL Normal (applies to MEDGEN Index (FTI) non-numeric ([place] results) Medical Service) TSH 3rd 1.12 Normal (applies to MEDGEN Generation uIU/mL non-numeric ([place] Ultra results) Medical Service) ID Date Data Source [id number] 09/20/2016 12:00:00 AM EDT [facility] ([facility]) Name Value Range Interpretation Code Description Data Libra rce(s) Supporting Document(s ) HIV Ag Non-Reacti Normal (applies to MEDGEN and Abs ve non-numeric ([place] results) Medical Service) ID Date Data Source [id number] 09/20/2016 12:00:00 AM EDT [facility] ([facility]) Name Value Range Interpretation Description Data Sup porting Code Source(s) Document(s ) Hepatitis B Nonreactive Normal (applies MEDGEN Core Ab IgM to non-numeric ([place] results) Medical Service) Hepatitis A, Nonreactive Normal (applies MEDGEN IgM to non-numeric ([place] results) Medical Service) Hepatitis B Nonreactive Normal (applies MEDGEN Surface Ag to non-numeric ([place] w/Reflex to results) Medical Confirmation Service) Hepatitis C Ab Reactive Above high MEDGEN (IgG) normal ([place] Medical Service) ID Date Data Source [id number] 09/20/2016 12:00:00 AM EDT [facility] ([facility]) Name Value Range Interpretation Code Description Data Libra rce(s) Supporting Document(s ) HCV RNA <15 Above high normal MED[facility] (IU/mL) ([place] Medical Service) HCV RNA <1.18 Above high normal MEDGEN (LOG ([place] IU/mL) Medical Service) ID Date Data Source [id number] 09/20/2016 12:00:00 AM EDT [facility] ([facility]) Name Value Range Interpretation Description Data Sup porting Code Source(s) Document(s ) Gonorrhea Negative Normal (applies to MEDGEN Amplified non-numeric ([place] Aptima Urine results) Medical Service) Chlamydia Negative Normal (applies to MEDGEN Amplified non-numeric ([place] Aptima Urine results) Medical Service) ID Date Data Source [id number] 09/20/2016 12:00:00 AM EDT [facility] ([facility]) Name Value Range Interpretation Description Data Sup porting Code Source(s) Document(s ) Color, Urine Yellow Normal (applies MEDGEN to non-numeric ([place] results) Medical Service) Appearance, Clear Normal (applies MEDGEN Urine to non-numeric ([place] results) Medical Service) pH, Urine 5.5 Normal (applies MEDGEN to non-numeric ([place] results) Medical Service) Specific gravity 1.025 R.I. Normal (applies MEDGEN of Pericardial to non-numeric ([place] fluid by results) Medical Refractometry Service) Bilirubin, Urine Negative Normal (applies MEDGEN to non-numeric ([place] results) Medical Service) Blood, Urine Negative Normal (applies MEDGEN to non-numeric ([place] results) Medical Service) Leuk. Esterase, Trace Above high MEDGEN U normal ([place] Medical Service) Nitrites, Urine Negative Normal (applies MEDGEN to non-numeric ([place] results) Medical Service) Glucose, Urine Negative Normal (applies MEDGEN to non-numeric ([place] results) Medical Service) Ketones, Urine Negative Normal (applies MEDGEN to non-numeric ([place] results) Medical Service) Protein, Urine Negative Normal (applies MEDGEN to non-numeric ([place] results) Medical Service) Urobilinogen, U 0.2 EU/dL Normal (applies MEDGEN to non-numeric ([place] results) Medical Service) RBC, Urine 0-2 Normal (applies MEDGEN to non-numeric ([place] results) Medical Service) WBC, Urine None seen Normal (applies MEDGEN to non-numeric ([place] results) Medical Service) Bacteria, Urine None seen Normal (applies MEDGEN to non-numeric ([place] results) Medical Service) Epithelial cells None seen Normal (applies MEDGEN [Presence] in to non-numeric ([place] Unspecified results) Medical specimen by Gram Service) stain Crystals None seen Normal (applies MEDGEN [#/area] in Body [facility] Medical microscopy Service) Yeast [#/area] None seen Normal (applies MEDGEN in Urine by to non-numeric ([place] Automated count results) Medical Service) ID Date Data Source [id number] 09/20/2016 12:00:00 AM EDT MED[facility] ([facility]) Name Value Range Interpretation Description Data Sup porting Code Source(s) Document(s ) White Blood 6.5 Normal (applies to MEDGEN Count x10^3/uL non-numeric ([place] results) Medical Service) Red Blood 5.34 Normal (applies to MEDGEN Count x10^6/uL non-numeric ([place] results) Medical Service) Hemoglobin 16.7 g/dL Normal (applies to MEDGEN [Mass/volume] non-numeric ([place] in Mixed results) Medical venous blood Service) by Oximetry Hematocrit 51.0 % Normal (applies to MEDGEN [Pure volume non-numeric ([place] fraction] of results) Medical Blood by Service) Automated count MCV 95 fL Normal (applies to MEDGEN non-numeric ([place] results) Medical Service) MCH 31.3 pg Normal (applies to MEDGEN non-numeric ([place] results) Medical Service) MCHC 32.8 g/dL Normal (applies to MEDGEN non-numeric ([place] results) Medical Service) Neutrophils% 51.8 % Normal (applies to MEDGEN non-numeric ([place] results) Medical Service) Lymphocytes% 34.9 % Normal (applies to MEDGEN non-numeric ([place] results) Medical Service) Monocytes% 7.2 % Normal (applies to MEDGEN non-numeric ([place] results) Medical Service) Eosinophils% 5.4 % Normal (applies to MEDGEN non-numeric ([place] results) Medical Service) Basophils% 0.8 % Normal (applies to MEDGEN non-numeric ([place] results) Medical Service) Neutrophils, 3.4 Normal (applies to MEDGEN Abs (ANC) x10^3/uL non-numeric ([place] results) Medical Service) Lymphocytes, 2.3 Normal (applies to MEDGEN Abs x10^3/uL non-numeric ([place] results) Medical Service) Monocytes, Abs 0.5 Normal (applies to MEDGEN x10^3/uL non-numeric ([place] results) Medical Service) Eosinophils, 0.3 Normal (applies to MEDGEN Abs x10^3/uL non-numeric ([place] results) Medical Service) Basophils, Abs 0.1 Normal (applies to MEDGEN x10^3/uL non-numeric ([place] results) Medical Service) RDW-CV 14.3 % Normal (applies to MEDGEN non-numeric ([place] results) Medical Service) Platelets 100 Below low normal MEDGEN [#/area] in x10^3/uL ([place] Blood by Medical Microscopy Service) high power field MPV 10.2 fL Normal (applies to MEDGEN non-numeric ([place] results) Medical Service) ID Date Data Source [id number] 09/20/2016 12:00:00 AM EDT [facility] ([facility]) Name Value Range Interpretation Description Data Sup porting Code Source(s) Document(s ) Cholesterol 125 Normal (applies MEDGEN [Moles/volume] mg/dL to non-numeric ([place] in Pericardial results) Medical fluid Service) HDL Cholesterol 37 mg/dL Below low normal MED[facility] ([place] Medical Service) Cholesterol/HDL 3.4 Normal (applies MEDGEN Ratio to non-numeric ([place] results) Medical Service) Non HDL 88 mg/dL Normal (applies MEDGEN Cholesterol to non-numeric ([place] results) Medical Service) HDL Chol (%) 29.6 % Normal (applies MEDGEN to non-numeric ([place] results) Medical Service) Cholesterol in 67 mg/dL Normal (applies MEDGEN LDL to non-numeric ([place] [Mass/volume] in results) Medical Serum or Plasma Service) by Direct assay Cholesterol in 21 Normal (applies MEDGEN LDL to non-numeric ([place] [Mass/volume] in results) Medical Serum or Plasma Service) by Direct assay Triglycerides 103 Normal (applies MEDGEN mg/dL to non-numeric ([place] results) Medical Service) ID Date Data Source [id number] 09/20/2016 12:00:00 AM EDT [facility] ([facility]) Name Value Range Interpretation Code Description Data Libra rce(s) Supporting Document(s ) Signal to >11.00 Above high normal MEDGEN Cutoff (Hep ([place] C) Medical Service) ID Date Data Source [id number] 09/20/2016 12:00:00 AM EDT [facility] ([facility]) Name Value Range Interpretation Description Data Sup porting Code Source(s) Document(s ) Hepatitis B Nonreactive Normal (applies MEDGEN Core Ab IgM to non-numeric ([place] results) Medical Service) Hepatitis A, Nonreactive Normal (applies MEDGEN IgM to non-numeric ([place] results) Medical Service) Hepatitis B Nonreactive Normal (applies MEDGEN Surface Ag to non-numeric ([place] w/Reflex to results) Medical Confirmation Service) Hepatitis C Ab Reactive Above high MEDGEN (IgG) normal ([place] Medical Service) ID Date Data Source [id number] 09/20/2016 12:00:00 AM EDT [facility] ([facility]) Name Value Range Interpretation Code Description Data Libra rce(s) Supporting Document(s ) HCV RNA <15 Above high normal [facility] (IU/mL) ([place] Medical Service) HCV RNA <1.18 Above high normal MEDGEN (LOG ([place] IU/mL) Medical Service) ID Date Data Source [id number] 09/20/2016 12:00:00 AM EDT [facility] ([facility]) Name Value Range Interpretation Description Data Sup porting Code Source(s) Document(s ) Gonorrhea Negative Normal (applies to MEDGEN Amplified non-numeric ([place] Aptima Urine results) Medical Service) Chlamydia Negative Normal (applies to MEDGEN Amplified non-numeric ([place] Aptima Urine results) Medical Service) ID Date Data Source [id number] 09/20/2016 12:00:00 AM EDT [facility] ([facility] [place] [facility]) Name Value Range Interpretation Description Data Sup porting Code Source(s) Document(s ) Color, Urine Yellow Normal (applies MEDGEN to non-numeric ([place] results) Medical Service) Appearance, Clear Normal (applies MEDGEN Urine to non-numeric ([place] results) Medical Service) pH, Urine 5.5 Normal (applies MEDGEN to non-numeric ([place] results) Medical Service) Specific gravity 1.025 R.I. Normal (applies MEDGEN of Pericardial to non-numeric ([place] fluid by results) Medical Refractometry Service) Bilirubin, Urine Negative Normal (applies MEDGEN to non-numeric ([place] results) Medical Service) Blood, Urine Negative Normal (applies MEDGEN to non-numeric ([place] results) Medical Service) Leuk. Esterase, Trace Above high MEDGEN U normal ([place] Medical Service) Nitrites, Urine Negative Normal (applies MEDGEN to non-numeric ([place] results) Medical Service) Glucose, Urine Negative Normal (applies MEDGEN to non-numeric ([place] results) Medical Service) Ketones, Urine Negative Normal (applies MEDGEN to non-numeric ([place] results) Medical Service) Protein, Urine Negative Normal (applies MEDGEN to non-numeric ([place] results) Medical Service) Urobilinogen, U 0.2 EU/dL Normal (applies MEDGEN to non-numeric ([place] results) Medical Service) RBC, Urine 0-2 Normal (applies MEDGEN to non-numeric ([place] results) Medical Service) WBC, Urine None seen Normal (applies MEDGEN to non-numeric ([place] results) Medical Service) Bacteria, Urine None seen Normal (applies MEDGEN to non-numeric ([place] results) Medical Service) Epithelial cells None seen Normal (applies MEDGEN [Presence] in to non-numeric ([place] Unspecified results) Medical specimen by Gram Service) stain Crystals None seen Normal (applies MEDGEN [#/area] in Body to non-numeric ([place] fluid by Light results) Medical microscopy Service) Yeast [#/area] None seen Normal (applies MEDGEN in Urine by to non-numeric ([place] Automated count results) Medical Service) ID Date Data Source [id number] 09/20/2016 12:00:00 AM EDT MEDGEN ([facility] Service) Name Value Range Interpretation Description Data Sup porting Code Source(s) Document(s ) White Blood 6.5 Normal (applies to MEDGEN Count x10^3/uL non-numeric ([place] results) Medical Service) Red Blood 5.34 Normal (applies to MEDGEN Count x10^6/uL non-numeric ([place] results) Medical Service) Hemoglobin 16.7 g/dL Normal (applies to MEDGEN [Mass/volume] non-numeric ([place] in Mixed results) Medical venous blood Service) by Oximetry Hematocrit 51.0 % Normal (applies to MEDGEN [Pure volume non-numeric ([place] fraction] of results) Medical Blood by Service) Automated count MCV 95 fL Normal (applies to MEDGEN non-numeric ([place] results) Medical Service) MCH 31.3 pg Normal (applies to MEDGEN non-numeric ([place] results) Medical Service) MCHC 32.8 g/dL Normal (applies to MEDGEN non-numeric ([place] results) Medical Service) Neutrophils% 51.8 % Normal (applies to MEDGEN non-numeric ([place] results) Medical Service) Lymphocytes% 34.9 % Normal (applies to MEDGEN non-numeric ([place] results) Medical Service) Monocytes% 7.2 % Normal (applies to MEDGEN non-numeric ([place] results) Medical Service) Eosinophils% 5.4 % Normal (applies to MEDGEN non-numeric ([place] results) Medical Service) Basophils% 0.8 % Normal (applies to MEDGEN non-numeric ([place] results) Medical Service) Neutrophils, 3.4 Normal (applies to MEDGEN Abs (ANC) x10^3/uL non-numeric ([place] results) Medical Service) Lymphocytes, 2.3 Normal (applies to MEDGEN Abs x10^3/uL non-numeric ([place] results) Medical Service) Monocytes, Abs 0.5 Normal (applies to MEDGEN x10^3/uL non-numeric ([place] results) Medical Service) Eosinophils, 0.3 Normal (applies to MEDGEN Abs x10^3/uL non-numeric ([place] results) Medical Service) Basophils, Abs 0.1 Normal (applies to MEDGEN x10^3/uL non-numeric ([place] results) Medical Service) RDW-CV 14.3 % Normal (applies to MEDGEN non-numeric ([place] results) Medical Service) Platelets 100 Below low normal MEDGEN [#/area] in x10^3/uL ([place] Blood by Medical Microscopy Service) high power field MPV 10.2 fL Normal (applies to MEDGEN non-numeric ([place] results) Medical Service) ID Date Data Source [id number] 09/20/2016 12:00:00 AM EDT [facility] ([facility]) Name Value Range Interpretation Description Data Sup porting Code Source(s) Document(s ) PSA, 1.87 Normal (applies to MEDGEN Diagnostic ng/mL non-numeric ([place] results) Medical Service) ID Date Data Source [id number] 09/20/2016 12:00:00 AM EDT [facility] ([facility]) Name Value Range Interpretation Description Data Sup porting Code Source(s) Document(s ) Folate 11.42 Normal (applies to MEDGEN [Interpreta ng/mL non-numeric ([place] tion] in results) Medical Blood Service) ID Date Data Source [id number] 09/20/2016 12:00:00 AM EDT [facility] ([facility]) Name Value Range Interpretation Description Data Sup porting Code Source(s) Document(s ) Vitamin B12 353 pg/mL Normal (applies to MEDGEN non-numeric ([place] results) Medical Service) ID Date Data Source [id number] 09/20/2016 12:00:00 AM EDT [facility] ([facility]) Name Value Range Interpretation Description Data Sup porting Code Source(s) Document(s ) Vitamin D 15.7 Below low normal MEDGEN (25 hydroxy) ng/mL ([facility] Medical Service) ID Date Data Source [id number] 09/20/2016 12:00:00 AM EDT MED[facility] ([facility]) Name Value Range Interpretation Description Data Sup porting Code Source(s) Document(s ) Testosterone 204 Below low normal MEDGEN [Moles/volume] ng/dL ([place] in Serum or Medical Plasma by Service) Detection limit <= 3.47 pmol/L ID Date Data Source [id number] 09/20/2016 12:00:00 AM EDT [facility] ([facility]) Name Value Range Interpretation Code Description Data Libra rce(s) Supporting Document(s ) Uric Acid 6.0 mg/dL Normal (applies to MEDGEN non-numeric ([place] results) Medical Service) ID Date Data Source [id number] 09/20/2016 12:00:00 AM EDT [facility] ([facility]) Name Value Range Interpretation Description Data Sup porting Code Source(s) Document(s ) Glucose mean 116 mg/dL Normal (applies to MEDGEN value non-numeric ([place] [Moles/volume] results) Medical in Blood Service) Estimated from glycated hemoglobin ID Date Data Source [id number] 09/20/2016 12:00:00 AM EDT MED[facility] ([facility] Service) Name Value Range Interpretation Code Description Data Libra rce(s) Supporting Document(s ) GlycoHgb 5.7 % Normal (applies to MEDGEN (A1c) non-numeric ([place] results) Medical Service) ID Date Data Source [id number] 09/20/2016 12:00:00 AM EDT [facility] ([facility] Service) Name Value Range Interpretation Description Data Sup porting Code Source(s) Document(s ) Glucose 99 mg/dL Normal (applies MEDGEN [Mass/volume] in to non-numeric ([place] Urine collected results) Medical for unspecified Service) duration Urea nitrogen 19 mg/dL Normal (applies MEDGEN [Moles/volume] to non-numeric ([place] in Blood results) Medical Service) Creatinine 1.02 Normal (applies MEDGEN [Interpretation] mg/dL to non-numeric ([place] in Urine results) Medical Service) eGFR 91 Normal (applies MEDGEN (calculation) to non-numeric ([place] for results) Medical -[place] Service) s eGFR 75 Normal (applies MEDGEN (calculation) to non-numeric ([place] results) Medical Service) BUN/Creat Ratio 18.6 Normal (applies MEDGEN to non-numeric ([place] results) Medical Service) Sodium 140 Normal (applies MEDGEN [Moles/volume] mmol/L to non-numeric ([place] in Serum, Plasma results) Medical or Blood Service) Potassium 4.3 Normal (applies MEDGEN [Mass/volume] in mmol/L to non-numeric ([place] Blood results) Medical Service) Chloride 107 Normal (applies MEDGEN [Moles/volume] mmol/L to non-numeric ([place] in Serum, Plasma results) Medical or Blood Service) Carbon dioxide 25 Normal (applies MEDGEN [VFr/PPres] in mmol/L to non-numeric ([place] Gas delivery results) Medical system Service) Calcium 9.2 Normal (applies MEDGEN [Moles/volume] mg/dL to non-numeric ([place] in Urine results) Medical collected for Service) unspecified duration Protein, Total 6.8 g/dL Normal (applies MEDGEN to non-numeric ([place] results) Medical Service) Microalbumin 4.2 g/dL Normal (applies MEDGEN [Mass/time] in to non-numeric ([place] Urine collected results) Medical for unspecified Service) duration Globulin 2.6 g/dL Normal (applies MEDGEN [Mass/time] in to non-numeric ([place] 24 hour Urine results) Medical Service) A/G Ratio 1.6 Normal (applies MEDGEN Ratio to non-numeric ([place] results) Medical Service) Alkaline 92 IU/L Normal (applies MEDGEN phosphatase to non-numeric ([place] [Enzymatic results) Medical activity/volume] Service) in Serum, Plasma or Blood AST 31 IU/L Normal (applies MEDGEN to non-numeric ([place] results) Medical Service) ALT 44 IU/L Normal (applies MEDGEN to non-numeric ([place] results) Medical Service) Bilirubin, Total 0.8 Normal (applies MEDGEN mg/dL to non-numeric ([place] results) Medical Service) ID Date Data Source [id number] 09/20/2016 12:00:00 AM EDT [facility] ([facility]) Name Value Range Interpretation Description Data Sup porting Code Source(s) Document(s ) Thyroxine (T4) 10.6 Normal (applies to MEDGEN ug/dL non-numeric ([place] results) Medical Service) T3-Uptake 32.7 % Normal (applies to MEDGEN non-numeric ([place] results) Medical Service) Free Thyroxine 3.5 ng/dL Normal (applies to MEDGEN Index (FTI) non-numeric ([place] results) Medical Service) TSH 3rd 1.12 Normal (applies to MEDGEN Generation uIU/mL non-numeric ([place] Ultra results) Medical Service) ID Date Data Source [id number] 09/20/2016 12:00:00 AM EDT [facility] ([facility]) Name Value Range Interpretation Code Description Data Libra rce(s) Supporting Document(s ) HIV Ag Non-Reacti Normal (applies to MEDGEN and Abs ve non-numeric ([place] results) Medical Service) ID Date Data Source [id number] 08/24/2015 12:00:00 AM EDT [facility] ([facility]) Name Value Range Interpretation Code Description Data Libra rce(s) Supporting Document(s ) PSA 2.34 ng/mL Normal (applies to MEDGEN non-numeric results) ([place] Medical Service) ID Date Data Source [id number] 08/24/2015 12:00:00 AM EDT [facility] ([facility]) Name Value Range Interpretation Description Data Sup porting Code Source(s) Document(s ) Hemoglobin 5.3 % Normal (applies to MEDGEN A1c/Hemoglobin. non-numeric ([place] total in Blood results) Medical Service) ID Date Data Source [id number] 08/24/2015 12:00:00 AM EDT [facility] ([facility]) Name Value Range Interpretation Code Description Data Libra rce(s) Supporting Document(s ) BILIRUBIN 0.29 mg/dL Above high normal MEDGEN ,Direct ([place] Medical Service) ID Date Data Source [id number] 08/24/2015 12:00:00 AM EDT MED[facility] ([facility]) Name Value Range Interpretation Description Data Sup porting Code Source(s) Document(s ) T4 TOTAL 11.73 Normal (applies to MEDGEN ug/dL non-numeric ([place] results) Medical Service) T3 UPTAKE 49.9 % Above high normal MEDGEN ([place] [facility] Service) TSH 3RD 1.424 Normal (applies to MEDGEN GENERATION uIU/mL non-numeric ([place] results) Medical Service) (FT4 5.9 ng/dL Above high normal MEDGEN INDEX)calc. ([place] Medical Service) ID Date Data Source [id number] 08/24/2015 12:00:00 AM EDT [facility] ([facility]) Name Value Range Interpretation Description Data Sup porting Code Source(s) Document(s ) Cholesterol 138 Normal (applies MEDGEN [Moles/volume] mg/dL to non-numeric ([facility] in Pericardial results) Medical fluid Service) TRIGLYCERIDES 74 mg/dL Normal (applies MEDGEN to non-numeric ([facility] results) Medical Service) HDL CHOLESTEROL 36 mg/dL Below low normal MEDGEN ([facility]) LDL/HDL RATIO 2.42 Normal (applies [facility] to non-numeric ([place] results) Medical Service) Cholesterol in 87 mg/dL Normal (applies [facility]GEN LDL to non-numeric ([facility] [Mass/volume] in results) Medical Serum or Plasma Service) by Direct assay Cholesterol in 15 mg/dL Normal (applies [facility]GEN LDL to non-numeric ([place] [Mass/volume] in results) Medical Serum or Plasma Service) by Direct assay CHOLESTEROL/HDL 3.83 Normal (applies [facility] RATIO to non-numeric ([place] results) Medical Service) NON-HDL 102 Normal (applies [facility]GEN CHOLESTEROL mg/dL to non-numeric ([place] results) Medical Service) ID Date Data Source [id number] 08/24/2015 12:00:00 AM EDT MEDGEN ([facility]) Name Value Range Interpretation Description Data Sup porting Code Source(s) Document(s ) Sodium 136 Normal (applies MEDGEN [Moles/volume] mmol/L to non-numeric ([facility] in Serum, Plasma results) Medical or Blood Service) Potassium 4.0 Normal (applies [facility] [[facility]/volume[facility]) Chloride 103 Normal (applies MEDGEN [Moles/volume] mmol/L to non-numeric ([place] in Serum, Plasma results) Medical or Blood Service) ALK.PHOSPHATASE 106 U/L Above high normal MED[facility] ([facility]) Glucose 101 Above high normal MEDGEN [Mass/volume] in mg/dL ([place] Urine collected Medical for unspecified Service) duration BUN 17 mg/dl Normal (applies [facility]GEN to non-numeric ([facility] results) Medical Service) CREATININE SERUM 0.99 Normal (applies MEDGEN mg/dL to non-numeric ([facility] results) Medical Service) BUN/CREATININE 17 Ratio Normal (applies [facility]GEN RATIO to non-numeric ([place] results) Medical Service) BILIRUBIN,Total 1.1 Above high normal MEDGEN mg/dl ([facility]) Calcium 9.2 Normal (applies [facility]GEN [Moles/volume] mg/dL to non-numeric ([place] in Urine results) Medical collected for Service) unspecified duration PROTEIN TOTAL 7.1 g/dL Normal (applies [facility]GEN to non-numeric ([facility] results) Medical Service) Microalbumin 3.8 g/dL Normal (applies MEDGEN [Mass/time] in to non-numeric ([facility] Urine collected results) Medical for unspecified Service) duration ALT (SGPT) 35 U/L Normal (applies MEDGEN to non-numeric ([facility] results) Medical Service) AST (SGOT) 28 U/L Normal (applies [facility]GEN to non-numeric ([place] results) Medical Service) Carbon dioxide 26.0 Normal (applies MEDGEN [VFr/PPres] in mEq/L to non-numeric ([facility] Gas delivery results) Medical system Service) Globulin 3.3 g/L Normal (applies MEDGEN [Mass/time] in to non-numeric ([facility] 24 hour Urine results) Medical Service) A/G RATIO 1.2 Normal (applies MEDGEN Ratio to non-numeric ([place] results) Medical Service) GLOMERULAR FILT. 83 Normal (applies MEDGEN RATE mL/min to non-numeric ([place] results) Medical Service) ID Date Data Source [id number] 08/24/2015 12:00:00 AM EDT MEDGEN ([facility]) Name Value Range Interpretation Description Data Sup porting Code Source(s) Document(s ) WBC 7.7 Normal (applies MEDGEN 10^3/uL to non-numeric ([place] results) Medical Service) RBC 5.25 Normal (applies MEDGEN 10^6/uL to non-numeric ([facility] results) Medical Service) Hemoglobin 16.2 g/dL Normal (applies [facility]GEN [Mass/volume] to non-numeric ([facility] in Mixed venous results) Medical blood by Service) Oximetry Hematocrit 50 % Normal (applies MEDGEN [Pure volume to non-numeric ([place] fraction] of results) Medical Blood by Service) Automated count MCV 95 fL Normal (applies MEDGEN to non-numeric ([facility] results) Medical Service) MCH 30.9 pg Normal (applies MEDGEN to non-numeric ([facility] results) Medical Service) MCHC 32.4 g/dL Normal (applies MEDGEN to non-numeric ([facility] results) Medical Service) RDW 14.2 % Normal (applies MEDGEN to non-numeric ([facility] results) Medical Service) PLATELET 102 Below low normal MEDGEN 10^3/uL ([facility]) MPV 9.87 fL Normal (applies MEDGEN to non-numeric ([facility] results) Medical Service) SEGMENTED % 53.1 % Normal (applies MEDGEN to non-numeric ([facility] results) Medical Service) SEGMENTED # 4.1 Normal (applies MEDGEN 10^3uL to non-numeric ([place] results) Medical Service) LYMPHOCYTES % 29.72 % Normal (applies MEDGEN to non-numeric ([facility] results) Medical Service) LYMPHOCYTES # 2.3 Normal (applies MEDGEN 10^3/uL to non-numeric ([facility] results) Medical Service) MONOCYTES % 10.4 % Above high normal MED[facility] ([facility]) MONOCYTES # 0.8 Normal (applies MEDGEN 10^3/uL to non-numeric ([facility] results) Medical Service) EOSINOPHILS % 6.19 % Above high normal [facility] ([facility]) EOSINOPHILS # 0.48 Normal (applies MEDGEN 10^3/uL to non-numeric ([facility] results) Medical Service) BASOPHILS % 0.63 % Normal (applies [facility] to non-numeric ([place] results) Medical Service) BASOPHILS # 0.05 Normal (applies MEDGEN 10^3/uL to non-numeric ([facility] results) Medical Service) ID Date Data Source [id number] 08/24/2015 12:00:00 AM EDT [facility] ([facility]) Name Value Range Interpretation Code Description Data Libra rce(s) Supporting Document(s ) BILIRUBIN 0.29 mg/dL Above high normal MEDGEN ,Direct ([facility]) ID Date Data Source [id number] 08/24/2015 12:00:00 AM EDT [facility] ([facility]) Name Value Range Interpretation Description Data Sup porting Code Source(s) Document(s ) T4 TOTAL 11.73 Normal (applies to MEDGEN ug/dL non-numeric ([facility] results) Medical Service) T3 UPTAKE 49.9 % Above high normal [facility] ([facility]) (FT4 5.9 ng/dL Above high normal MEDGEN INDEX)calc. ([facility]) TSH 3RD 1.424 Normal (applies to MEDGEN GENERATION uIU/mL non-numeric ([facility] results) Medical Service) ID Date Data Source [id number] 08/24/2015 12:00:00 AM EDT [facility] ([facility]) Name Value Range Interpretation Description Data Sup porting Code Source(s) Document(s ) Cholesterol 138 Normal (applies [facility]GEN [Moles/volume] mg/dL to non-numeric ([facility] in Pericardial results) Medical fluid Service) TRIGLYCERIDES 74 mg/dL Normal (applies [facility]GEN to non-numeric ([place] results) Medical Service) HDL CHOLESTEROL 36 mg/dL Below low normal [facility] ([facility]) LDL/HDL RATIO 2.42 Normal (applies [facility]GEN to non-numeric ([place] results) Medical Service) Cholesterol in 87 mg/dL Normal (applies MEDGEN LDL to non-numeric ([facility] [Mass/volume] in results) Medical Serum or Plasma Service) by Direct assay Cholesterol in 15 mg/dL Normal (applies MEDGEN LDL to non-numeric ([facility] [Mass/volume] in results) Medical Serum or Plasma Service) by Direct assay CHOLESTEROL/HDL 3.83 Normal (applies [facility] RATIO to non-numeric ([place] results) Medical Service) NON-HDL 102 Normal (applies [facility]GEN CHOLESTEROL mg/dL to non-numeric ([place] results) Medical Service) ID Date Data Source [id number] 08/24/2015 12:00:00 AM EDT MEDGEN ([facility]) Name Value Range Interpretation Description Data Sup porting Code Source(s) Document(s ) Sodium 136 Normal (applies MEDGEN [Moles/volume] mmol/L to non-numeric ([place] in Serum, Plasma results) Medical or Blood Service) Potassium 4.0 Normal (applies [facility] [Mass/volume] in mmol/L to non-numeric [facility] Service) Chloride 103 Normal (applies MEDGEN [Moles/volume] mmol/L to non-numeric ([place] in Serum, Plasma results) Medical or Blood Service) ALK.PHOSPHATASE 106 U/L Above high normal MED[facility] ([facility]) Glucose 101 Above high normal MEDGEN [Mass/volume] in mg/dL ([place] Urine collected Medical for unspecified Service) duration BUN 17 mg/dl Normal (applies MEDGEN to non-numeric ([place] results) Medical Service) CREATININE SERUM 0.99 Normal (applies MEDGEN mg/dL to non-numeric ([place] results) Medical Service) BUN/CREATININE 17 Ratio Normal (applies [facility]GEN RATIO to non-numeric ([place] results) Medical Service) BILIRUBIN,Total 1.1 Above high normal [facility] mg/dl ([facility]) Calcium 9.2 Normal (applies [facility]GEN [Moles/volume] mg/dL to non-numeric ([place] in Urine results) Medical collected for Service) unspecified duration PROTEIN TOTAL 7.1 g/dL Normal (applies MEDGEN to non-numeric ([facility] results) Medical Service) Microalbumin 3.8 g/dL Normal (applies MEDGEN [Mass/time] in to non-numeric ([facility] Urine collected results) Medical for unspecified Service) duration ALT (SGPT) 35 U/L Normal (applies MEDGEN to non-numeric ([facility] results) Medical Service) AST (SGOT) 28 U/L Normal (applies MEDGEN to non-numeric ([facility] results) Medical Service) Carbon dioxide 26.0 Normal (applies MEDGEN [VFr/PPres] in mEq/L to non-numeric ([place] Gas delivery results) Medical system Service) Globulin 3.3 g/L Normal (applies MEDGEN [Mass/time] in to non-numeric ([facility] 24 hour Urine results) Medical Service) A/G RATIO 1.2 Normal (applies MEDGEN Ratio to non-numeric ([facility] results) Medical Service) GLOMERULAR FILT. 83 Normal (applies MEDGEN RATE mL/min to non-numeric ([facility] results) Medical Service) ID Date Data Source [id number] 08/24/2015 12:00:00 AM EDT MEDGEN ([facility]) Name Value Range Interpretation Description Data Sup porting Code Source(s) Document(s ) WBC 7.7 Normal (applies MEDGEN 10^3/uL to non-numeric ([facility] results) Medical Service) RBC 5.25 Normal (applies MEDGEN 10^6/uL to non-numeric ([place] results) Medical Service) Hemoglobin 16.2 g/dL Normal (applies [facility]GEN [Mass/volume] to non-numeric ([place] in Mixed venous results) Medical blood by Service) Oximetry Hematocrit 50 % Normal (applies MEDGEN [Pure volume to non-numeric ([place] fraction] of results) Medical Blood by Service) Automated count MCV 95 fL Normal (applies MEDGEN to non-numeric ([facility] results) Medical Service) MCH 30.9 pg Normal (applies [facility]GEN to non-numeric ([place] results) Medical Service) MCHC 32.4 g/dL Normal (applies [facility]GEN to non-numeric ([place] results) Medical Service) RDW 14.2 % Normal (applies MEDGEN to non-numeric ([facility] results) Medical Service) PLATELET 102 Below low normal MEDGEN 10^3/uL ([facility]) MPV 9.87 fL Normal (applies MEDGEN to non-numeric ([facility] results) Medical Service) SEGMENTED % 53.1 % Normal (applies MEDGEN to non-numeric ([facility] results) Medical Service) SEGMENTED # 4.1 Normal (applies MEDGEN 10^3uL to non-numeric ([facility] results) Medical Service) LYMPHOCYTES % 29.72 % Normal (applies MEDGEN to non-numeric ([facility] results) Medical Service) LYMPHOCYTES # 2.3 Normal (applies MEDGEN 10^3/uL to non-numeric ([place] results) Medical Service) MONOCYTES % 10.4 % Above high normal [facility] ([facility]) MONOCYTES # 0.8 Normal (applies MEDGEN 10^3/uL to non-numeric ([place] results) Medical Service) EOSINOPHILS % 6.19 % Above high normal [facility] ([facility]) EOSINOPHILS # 0.48 Normal (applies MEDGEN 10^3/uL to non-numeric ([place] results) Medical Service) BASOPHILS % 0.63 % Normal (applies [facility]GEN to non-numeric ([place] results) Medical Service) BASOPHILS # 0.05 Normal (applies [facility]GEN 10^3/uL to non-numeric ([place] results) Medical Service) ID Date Data Source [id number] 08/24/2015 12:00:00 AM EDT [facility] ([facility]) Name Value Range Interpretation Code Description Data Libra rce(s) Supporting Document(s ) PSA 2.34 ng/mL Normal (applies to MEDGEN non-numeric results) ([facility]) ID Date Data Source [id number] 08/24/2015 12:00:00 AM EDT [facility] ([facility]) Name Value Range Interpretation Description Data Sup porting Code Source(s) Document(s ) Hemoglobin 5.3 % Normal (applies to MEDGEN A1c/Hemoglobin. non-numeric ([place] total in Blood results) Medical Service) ID Date Data Source [id number] 08/24/2015 12:00:00 AM EDT [facility] ([facility]) Name Value Range Interpretation Code Description Data Libra rce(s) Supporting Document(s ) BILIRUBIN 0.29 mg/dL Above high normal MED[facility] ,Direct ([facility]) ID Date Data Source [id number] 08/24/2015 12:00:00 AM EDT [facility] ([facility]) Name Value Range Interpretation Description Data Sup porting Code Source(s) Document(s ) T4 TOTAL 11.73 Normal (applies to MEDGEN ug/dL non-numeric ([place] results) Medical Service) T3 UPTAKE 49.9 % Above high normal [facility] ([facility]) TSH 3RD 1.424 Normal (applies to [facility] GENERATION uIU/mL non-numeric ([facility] results) Medical Service) (FT4 5.9 ng/dL Above high normal [facility] INDEX)calc. ([facility]) ID Date Data Source [id number] 08/24/2015 12:00:00 AM EDT [facility] ([facility]) Name Value Range Interpretation Description Data Sup porting Code Source(s) Document(s ) Cholesterol 138 Normal (applies MEDGEN [Moles/volume] mg/dL to non-numeric ([place] in Pericardial results) Medical fluid Service) TRIGLYCERIDES 74 mg/dL Normal (applies [facility]GEN to non-numeric ([facility] results) Medical Service) HDL CHOLESTEROL 36 mg/dL Below low normal [facility] ([facility]) LDL/HDL RATIO 2.42 Normal (applies MEDGEN to non-numeric ([facility] results) Medical Service) Cholesterol in 87 mg/dL Normal (applies MEDGEN LDL to non-numeric ([facility] [Mass/volume] in results) Medical Serum or Plasma Service) by Direct assay Cholesterol in 15 mg/dL Normal (applies MEDGEN LDL to non-numeric ([place] [Mass/volume] in results) Medical Serum or Plasma Service) by Direct assay CHOLESTEROL/HDL 3.83 Normal (applies MEDGEN RATIO to non-numeric ([place] results) Medical Service) NON-HDL 102 Normal (applies MEDGEN CHOLESTEROL mg/dL to non-numeric ([place] results) Medical Service) ID Date Data Source [id number] 08/24/2015 12:00:00 AM EDT [facility] ([facility]) Name Value Range Interpretation Description Data Sup porting Code Source(s) Document(s ) Sodium 136 Normal (applies MEDGEN [Moles/volume] mmol/L to non-numeric ([facility] in Serum, Plasma results) Medical or Blood Service) Potassium 4.0 Normal (applies [facility]GEN [Mass/volume] in mmol/L to non-numeric ([facility] Blood results) Medical Service) Chloride 103 Normal (applies MEDGEN [Moles/volume] mmol/L to non-numeric ([place] in Serum, Plasma results) Medical or Blood Service) ALK.PHOSPHATASE 106 U/L Above high normal MED[facility] ([facility]) Glucose 101 Above high normal MEDGEN [Mass/volume] in mg/dL ([place] Urine collected Medical for unspecified Service) duration BUN 17 mg/dl Normal (applies MEDGEN to non-numeric ([place] results) Medical Service) CREATININE SERUM 0.99 Normal (applies MEDGEN mg/dL to non-numeric ([place] results) Medical Service) BUN/CREATININE 17 Ratio Normal (applies MEDGEN RATIO to non-numeric ([place] results) Medical Service) BILIRUBIN,Total 1.1 Above high normal MED[facility] mg/dl ([facility]) Calcium 9.2 Normal (applies MEDGEN [Moles/volume] mg/dL to non-numeric ([place] in Urine results) Medical collected for Service) unspecified duration PROTEIN TOTAL 7.1 g/dL Normal (applies MEDGEN to non-numeric ([place] results) Medical Service) Microalbumin 3.8 g/dL Normal (applies MEDGEN [Mass/time] in to non-numeric ([place] Urine collected results) Medical for unspecified Service) duration ALT (SGPT) 35 U/L Normal (applies MEDGEN to non-numeric ([facility] results) Medical Service) AST (SGOT) 28 U/L Normal (applies MEDGEN to non-numeric ([place] results) Medical Service) Carbon dioxide 26.0 Normal (applies MEDGEN [VFr/PPres] in mEq/L to non-numeric ([place] Gas delivery results) Medical system Service) Globulin 3.3 g/L Normal (applies MEDGEN [Mass/time] in to non-numeric ([place] 24 hour Urine results) Medical Service) A/G RATIO 1.2 Normal (applies MEDGEN Ratio to non-numeric ([place] results) Medical Service) GLOMERULAR FILT. 83 Normal (applies MEDGEN RATE mL/min to non-numeric ([place] results) Medical Service) ID Date Data Source [id number] 08/24/2015 12:00:00 AM EDT MEDGEN ([facility]) Name Value Range Interpretation Description Data Sup porting Code Source(s) Document(s ) WBC 7.7 Normal (applies MEDGEN 10^3/uL to non-numeric ([facility] results) Medical Service) RBC 5.25 Normal (applies MEDGEN 10^6/uL to non-numeric ([facility] results) Medical Service) Hemoglobin 16.2 g/dL Normal (applies MEDGEN [Mass/volume] to non-numeric ([place] in Mixed venous results) Medical blood by Service) Oximetry Hematocrit 50 % Normal (applies MEDGEN [Pure volume to non-numeric ([place] fraction] of results) Medical Blood by Service) Automated count MCV 95 fL Normal (applies MEDGEN to non-numeric ([place] results) Medical Service) MCH 30.9 pg Normal (applies MEDGEN to non-numeric ([place] results) Medical Service) MCHC 32.4 g/dL Normal (applies MEDGEN to non-numeric ([place] results) Medical Service) RDW 14.2 % Normal (applies MEDGEN to non-numeric ([place] results) Medical Service) PLATELET 102 Below low normal MEDGEN 10^3/uL ([facility]) MPV 9.87 fL Normal (applies MEDGEN to non-numeric ([place] results) Medical Service) SEGMENTED % 53.1 % Normal (applies MEDGEN to non-numeric ([place] results) Medical Service) SEGMENTED # 4.1 Normal (applies MEDGEN 10^3uL to non-numeric ([facility] results) Medical Service) LYMPHOCYTES % 29.72 % Normal (applies MEDGEN to non-numeric ([facility] results) Medical Service) LYMPHOCYTES # 2.3 Normal (applies MEDGEN 10^3/uL to non-numeric ([facility] results) Medical Service) MONOCYTES % 10.4 % Above high normal MED[facility] ([facility]) MONOCYTES # 0.8 Normal (applies MEDGEN 10^3/uL to non-numeric ([place] results) Medical Service) EOSINOPHILS % 6.19 % Above high normal MED[facility] ([facility]) EOSINOPHILS # 0.48 Normal (applies MEDGEN 10^3/uL to non-numeric ([place] results) Medical Service) BASOPHILS % 0.63 % Normal (applies MEDGEN to non-numeric ([facility] results) Medical Service) BASOPHILS # 0.05 Normal (applies MEDGEN 10^3/uL to non-numeric ([facility] results) Medical Service) ID Date Data Source [id number] 08/24/2015 12:00:00 AM EDT MEDGEN ([facility]) Name Value Range Interpretation Code Description Data Libra rce(s) Supporting Document(s ) PSA 2.34 ng/mL Normal (applies to MEDGEN non-numeric results) ([facility]) ID Date Data Source [id number] 08/24/2015 12:00:00 AM EDT MEDGEN ([facility]) Name Value Range Interpretation Description Data Sup porting Code Source(s) Document(s ) Hemoglobin 5.3 % Normal (applies to MEDGEN A1c/Hemoglobin. non-numeric ([place] total in Blood results) Medical Service) ID Date Data Source [id number] 08/24/2015 12:00:00 AM EDT MEDGEN ([facility]) Name Value Range Interpretation Code Description Data Libra rce(s) Supporting Document(s ) PSA 2.34 ng/mL Normal (applies to MEDGEN non-numeric results) ([facility]) ID Date Data Source [id number] 08/24/2015 12:00:00 AM EDT MEDGEN ([facility]) Name Value Range Interpretation Description Data Sup porting Code Source(s) Document(s ) Hemoglobin 5.3 % Normal (applies to MEDGEN A1c/Hemoglobin. non-numeric ([place] total in Blood results) Medical Service) ID Date Data Source [id number] 08/24/2015 12:00:00 AM EDT MEDGEN ([facility]) Name Value Range Interpretation Code Description Data Libra rce(s) Supporting Document(s ) BILIRUBIN 0.29 mg/dL Above high normal MEDGEN ,Direct ([facility]) ID Date Data Source [id number] 08/24/2015 12:00:00 AM EDT MEDGEN ([facility]) Name Value Range Interpretation Description Data Sup porting Code Source(s) Document(s ) T4 TOTAL 11.73 Normal (applies to MEDGEN ug/dL non-numeric ([place] results) Medical Service) T3 UPTAKE 49.9 % Above high normal MED[facility] ([facility]) TSH 3RD 1.424 Normal (applies to MEDGEN GENERATION uIU/mL non-numeric ([place] results) Medical Service) (FT4 5.9 ng/dL Above high normal MEDGEN INDEX)calc. ([facility]) ID Date Data Source [id number] 08/24/2015 12:00:00 AM EDT MEDGEN ([facility]) Name Value Range Interpretation Description Data Sup porting Code Source(s) Document(s ) Cholesterol 138 Normal (applies MEDGEN [Moles/volume] mg/dL to non-numeric ([place] in Pericardial results) Medical fluid Service) TRIGLYCERIDES 74 mg/dL Normal (applies MEDGEN to non-numeric ([place] results) Medical Service) HDL CHOLESTEROL 36 mg/dL Below low normal MEDGEN ([facility]) LDL/HDL RATIO 2.42 Normal (applies MEDGEN to non-numeric ([place] results) Medical Service) Cholesterol in 87 mg/dL Normal (applies MEDGEN LDL to non-numeric ([place] [Mass/volume] in results) Medical Serum or Plasma Service) by Direct assay Cholesterol in 15 mg/dL Normal (applies MEDGEN LDL to non-numeric ([place] [Mass/volume] in results) Medical Serum or Plasma Service) by Direct assay CHOLESTEROL/HDL 3.83 Normal (applies MEDGEN RATIO to non-numeric ([place] results) Medical Service) NON-HDL 102 Normal (applies MEDGEN CHOLESTEROL mg/dL to non-numeric ([place] results) Medical Service) ID Date Data Source [id number] 08/24/2015 12:00:00 AM EDT [facility] ([facility]) Name Value Range Interpretation Description Data Sup porting Code Source(s) Document(s ) Sodium 136 Normal (applies MEDGEN [Moles/volume] mmol/L to non-numeric ([place] in Serum, Plasma results) Medical or Blood Service) Potassium 4.0 Normal (applies MEDGEN [Mass/volume] in mmol/L to non-numeric ([place] [facility] Blood results) Medical Service) Chloride 103 Normal (applies MEDGEN [Moles/volume] mmol/L to non-numeric ([place] in Serum, Plasma results) Medical or Blood Service) ALK.PHOSPHATASE 106 U/L Above high normal MEDGEN ([place] [facility]) Glucose 101 Above high normal MEDGEN [Mass/volume] in mg/dL ([place] Urine collected Medical for unspecified Service) duration CREATININE SERUM 0.99 Normal (applies MEDGEN mg/dL to non-numeric ([place] results) Medical Service) BUN 17 mg/dl Normal (applies MEDGEN to non-numeric ([place] results) Medical Service) BUN/CREATININE 17 Ratio Normal (applies MEDGEN RATIO to non-numeric ([place] results) Medical Service) BILIRUBIN,Total 1.1 Above high normal MEDGEN mg/dl ([place]) Calcium 9.2 Normal (applies MEDGEN [Moles/volume] mg/dL to non-numeric ([place] in Urine results) Medical collected for Service) unspecified duration PROTEIN TOTAL 7.1 g/dL Normal (applies MEDGEN to non-numeric ([place] results) Medical Service) Microalbumin 3.8 g/dL Normal (applies MEDGEN [Mass/time] in to non-numeric ([place] Urine collected results) Medical for unspecified Service) duration ALT (SGPT) 35 U/L Normal (applies MEDGEN to non-numeric ([place] results) Medical Service) AST (SGOT) 28 U/L Normal (applies MEDGEN to non-numeric ([place] results) Medical Service) Carbon dioxide 26.0 Normal (applies MEDGEN [VFr/PPres] in mEq/L to non-numeric ([place] Gas delivery results) Medical system Service) A/G RATIO 1.2 Normal (applies MEDGEN Ratio to non-numeric ([place] results) Medical Service) Globulin 3.3 g/L Normal (applies MEDGEN [Mass/time] in to non-numeric ([place] 24 hour Urine results) Medical Service) GLOMERULAR FILT. 83 Normal (applies MEDGEN RATE mL/min to non-numeric ([place] results) Medical Service) ID Date Data Source [id number] 08/24/2015 12:00:00 AM EDT MEDGEN ([facility]) Name Value Range Interpretation Description Data Sup porting Code Source(s) Document(s ) WBC 7.7 Normal (applies MEDGEN 10^3/uL to non-numeric ([place] results) Medical Service) RBC 5.25 Normal (applies MEDGEN 10^6/uL to non-numeric ([facility] results) Medical Service) Hemoglobin 16.2 g/dL Normal (applies MEDGEN [Mass/volume] to non-numeric ([place] in Mixed venous results) Medical blood by Service) Oximetry Hematocrit 50 % Normal (applies MEDGEN [Pure volume to non-numeric ([place] fraction] of results) Medical Blood by Service) Automated count MCV 95 fL Normal (applies MEDGEN to non-numeric ([place] results) Medical Service) MCH 30.9 pg Normal (applies MEDGEN to non-numeric ([place] results) Medical Service) MCHC 32.4 g/dL Normal (applies MEDGEN to non-numeric ([place] results) Medical Service) RDW 14.2 % Normal (applies MEDGEN to non-numeric ([place] results) Medical Service) PLATELET 102 Below low normal MEDGEN 10^3/uL ([facility]) MPV 9.87 fL Normal (applies MEDGEN to non-numeric ([place] results) Medical Service) SEGMENTED % 53.1 % Normal (applies MEDGEN to non-numeric ([place] results) Medical Service) SEGMENTED # 4.1 Normal (applies MEDGEN 10^3uL to non-numeric ([place] results) Medical Service) LYMPHOCYTES % 29.72 % Normal (applies MEDGEN to non-numeric ([place] results) Medical Service) LYMPHOCYTES # 2.3 Normal (applies MEDGEN 10^3/uL to non-numeric ([place] results) Medical Service) MONOCYTES % 10.4 % Above high normal MEDGEN ([place] [facility]) MONOCYTES # 0.8 Normal (applies MEDGEN 10^3/uL to non-numeric ([facility] results) Medical Service) EOSINOPHILS % 6.19 % Above high normal MEDGEN ([facility]) EOSINOPHILS # 0.48 Normal (applies MEDGEN 10^3/uL to non-numeric ([place] results) Medical Service) BASOPHILS % 0.63 % Normal (applies MEDGEN to non-numeric ([facility] results) Medical Service) BASOPHILS # 0.05 Normal (applies MEDGEN 10^3/uL to non-numeric ([place] results) Medical Service) ID Date Data Source [id number] 08/24/2015 12:00:00 AM EDT MEDGEN ([facility]) Name Value Range Interpretation Code Description Data Libra rce(s) Supporting Document(s ) PSA 2.34 ng/mL Normal (applies to MEDGEN non-numeric results) ([facility]) ID Date Data Source [id number] 08/24/2015 12:00:00 AM EDT MEDGEN ([facility]) Name Value Range Interpretation Description Data Sup porting Code Source(s) Document(s ) Hemoglobin 5.3 % Normal (applies to MEDGEN A1c/Hemoglobin. non-numeric ([facility] total in Blood results) Medical Service) ID Date Data Source [id number] 08/24/2015 12:00:00 AM EDT MEDGEN ([facility]) Name Value Range Interpretation Code Description Data Libra rce(s) Supporting Document(s ) BILIRUBIN 0.29 mg/dL Above high normal MEDGEN ,Direct ([facility]) ID Date Data Source [id number] 08/24/2015 12:00:00 AM EDT MEDGEN ([facility]) Name Value Range Interpretation Description Data Sup porting Code Source(s) Document(s ) T4 TOTAL 11.73 Normal (applies to MEDGEN ug/dL non-numeric ([place] results) Medical Service) T3 UPTAKE 49.9 % Above high normal MEDGEN ([place] [facility]) TSH 3RD 1.424 Normal (applies to MEDGEN GENERATION uIU/mL non-numeric ([facility] results) Medical Service) (FT4 5.9 ng/dL Above high normal MEDGEN INDEX)calc. ([place] [facility]) ID Date Data Source [id number] 08/24/2015 12:00:00 AM EDT MEDGEN ([facility]) Name Value Range Interpretation Description Data Sup porting Code Source(s) Document(s ) Cholesterol 138 Normal (applies MEDGEN [Moles/volume] mg/dL to non-numeric ([place] in Pericardial results) Medical fluid Service) TRIGLYCERIDES 74 mg/dL Normal (applies MEDGEN to non-numeric ([place] results) Medical Service) HDL CHOLESTEROL 36 mg/dL Below low normal MEDGEN ([place] [facility]) LDL/HDL RATIO 2.42 Normal (applies MEDGEN to non-numeric ([place] results) Medical Service) Cholesterol in 87 mg/dL Normal (applies MEDGEN LDL to non-numeric ([place] [Mass/volume] in results) Medical Serum or Plasma Service) by Direct assay Cholesterol in 15 mg/dL Normal (applies MEDGEN LDL to non-numeric ([place] [Mass/volume] in results) Medical Serum or Plasma Service) by Direct assay CHOLESTEROL/HDL 3.83 Normal (applies MEDGEN RATIO to non-numeric ([place] results) Medical Service) NON-HDL 102 Normal (applies MEDGEN CHOLESTEROL mg/dL to non-numeric ([place] results) Medical Service) ID Date Data Source [id number] 08/24/2015 12:00:00 AM EDT MEDGEN ([facility]) Name Value Range Interpretation Description Data Sup porting Code Source(s) Document(s ) Sodium 136 Normal (applies MEDGEN [Moles/volume] mmol/L to non-numeric ([place] in Serum, Plasma results) Medical or Blood Service) Potassium 4.0 Normal (applies MEDGEN [Mass/volume] in mmol[facility]L [facility]) Chloride 103 Normal (applies MEDGEN [Moles/volume] mmol/L to non-numeric ([place] in Serum, Plasma results) Medical or Blood Service) ALK.PHOSPHATASE 106 U/L Above high normal MEDGEN ([facility]) Glucose 101 Above high normal MEDGEN [Mass/volume] in mg/dL ([place] Urine collected Medical for unspecified Service) duration BUN 17 mg/dl Normal (applies MEDGEN to non-numeric ([place] results) Medical Service) CREATININE SERUM 0.99 Normal (applies MEDGEN mg/dL to non-numeric ([place] results) Medical Service) BUN/CREATININE 17 Ratio Normal (applies MEDGEN RATIO to non-numeric ([place] results) Medical Service) BILIRUBIN,Total 1.1 Above high normal MEDGEN mg/dl ([facility]) Calcium 9.2 Normal (applies MEDGEN [Moles/volume] mg/dL to non-numeric ([place] in Urine results) Medical collected for Service) unspecified duration PROTEIN TOTAL 7.1 g/dL Normal (applies MEDGEN to non-numeric ([place] results) Medical Service) Microalbumin 3.8 g/dL Normal (applies MEDGEN [Mass/time] in to non-numeric ([place] Urine collected results) Medical for unspecified Service) duration ALT (SGPT) 35 U/L Normal (applies MEDGEN to non-numeric ([place] results) Medical Service) AST (SGOT) 28 U/L Normal (applies MEDGEN to non-numeric ([place] results) Medical Service) Carbon dioxide 26.0 Normal (applies MEDGEN [VFr/PPres] in mEq/L to non-numeric ([place] [facility] results) Medical system Service) Globulin 3.3 g/L Normal (applies MEDGEN [Mass/time] in to non-numeric ([place] 24 hour Urine results) Medical Service) A/G RATIO 1.2 Normal (applies MEDGEN Ratio to non-numeric ([place] results) Medical Service) GLOMERULAR FILT. 83 Normal (applies MEDGEN RATE mL/min to non-numeric ([place] results) Medical Service) ID Date Data Source [id number] 08/24/2015 12:00:00 AM EDT MEDGEN ([facility]) Name Value Range Interpretation Description Data Sup porting Code Source(s) Document(s ) WBC 7.7 Normal (applies MEDGEN 10^3/uL to non-numeric ([place] results) Medical Service) RBC 5.25 Normal (applies MEDGEN 10^6/uL to non-numeric ([place] results) Medical Service) Hemoglobin 16.2 g/dL Normal (applies MEDGEN [Mass/volume] to non-numeric ([place] in Mixed venous results) Medical blood by Service) Oximetry Hematocrit 50 % Normal (applies MEDGEN [Pure volume to non-numeric ([place] fraction] of results) Medical Blood by Service) Automated count MCV 95 fL Normal (applies MEDGEN to non-numeric ([place] results) Medical Service) MCH 30.9 pg Normal (applies MEDGEN to non-numeric ([place] results) Medical Service) MCHC 32.4 g/dL Normal (applies MEDGEN to non-numeric ([place] results) Medical Service) RDW 14.2 % Normal (applies MEDGEN to non-numeric ([place] results) Medical Service) PLATELET 102 Below low normal MEDGEN 10^3/uL ([facility]) MPV 9.87 fL Normal (applies MEDGEN to non-numeric ([place] results) Medical Service) SEGMENTED % 53.1 % Normal (applies MEDGEN to non-numeric ([place] results) Medical Service) SEGMENTED # 4.1 Normal (applies MEDGEN 10^3uL to non-numeric ([place] results) Medical Service) LYMPHOCYTES % 29.72 % Normal (applies MEDGEN to non-numeric ([place] results) Medical Service) LYMPHOCYTES # 2.3 Normal (applies MEDGEN 10^3/uL to non-numeric ([place] results) Medical Service) MONOCYTES % 10.4 % Above high normal MEDGEN ([place] [facility]) MONOCYTES # 0.8 Normal (applies MEDGEN 10^3/uL to non-numeric ([place] results) Medical Service) EOSINOPHILS % 6.19 % Above high normal MEDGEN ([place] [facility]) EOSINOPHILS # 0.48 Normal (applies MEDGEN 10^3/uL to non-numeric ([place] results) Medical Service) BASOPHILS % 0.63 % Normal (applies MEDGEN to non-numeric ([place] results) Medical Service) BASOPHILS # 0.05 Normal (applies MEDGEN 10^3/uL to non-numeric ([place] results) Medical Service) Procedure Social History Code Duration Value Status Description Data Source(s ) Smoking 12/18/2019 Daily Smoker completed Daily Smoker [facility] 05:47:00 PM EDT Medical C enter Smoking 12/18/2019 Daily Smoker completed Daily Smoker [facility] 03:25:00 PM EDT Medical C enter Smoking 12/18/2019 Daily Smoker completed Daily Smoker [facility] 11:56:00 AM EDT Medical C enter Smoking 12/18/2019 Daily Smoker completed Daily Smoker [facility] 11:45:00 AM EDT Medical C enter Smoking 12/18/2019 Daily Smoker completed Daily Smoker [facility] 11:38:00 AM EDT Medical C enter Smoking 12/18/2019 Daily Smoker completed Daily Smoker [facility] 07:01:00 AM EDT Medical C enter Smoking 12/18/2019 Daily Smoker completed Daily Smoker [facility] 04:17:00 AM EDT Medical C enter Smoking 12/18/2019 +tob 1 pack a completed +tob 1 pack a day, MED GEN ([facility] 12:00:00 AM EDT day, no no alcohol, no Medic al Service) alcohol, no illicit drugs, 4 illicit drugs, children, single 4 children, single Smoking 12/18/2019 Current every completed Current every day MEDG EN ([facility] 12:00:00 AM EDT day smoker smoker Medical S erjasone) Smoking 12/14/2019 Daily Smoker completed Daily Smoker [facility] 02:35:00 PM EDT Medical C enter Smoking 12/14/2019 Daily Smoker completed Daily Smoker [facility] 02:29:00 PM EDT Medical C enter Smoking 12/14/2019 Daily Smoker completed Daily Smoker [facility] 02:19:00 PM EDT Medical C enter Smoking 12/12/2019 +tob 1 pack a completed +tob 1 pack a day, MED GEN ([place] 12:00:00 AM EDT day, no no alcohol, no Medic al Service) alcohol, no illicit drugs, 4 illicit drugs, children, single 4 children, single Smoking 12/12/2019 Current every completed Current every day MEDG EN ([facility] 12:00:00 AM EDT day smoker smoker Medical S ervice) Smoking 11/20/2019 Daily Smoker completed Daily Smoker [facility] 09:03:00 PM EDT Medical C enter Smoking 11/20/2019 Daily Smoker completed Daily Smoker [facility] 04:50:00 PM EDT Medical C enter Smoking 11/20/2019 +tob 1 pack a completed +tob 1 pack a day, MED GEN ([place] 12:00:00 AM EDT day, no no alcohol, no Medic al Service) alcohol, no illicit drugs, 4 illicit drugs, children, single 4 children, single Smoking 11/20/2019 Current every completed Current every day MEDG EN ([place] 12:00:00 AM EDT day smoker smoker Medical S ervice) Smoking 11/18/2019 +tob 1 pack a completed +tob 1 pack a day, MED GEN ([place] 12:00:00 AM EDT day, no no alcohol, no Medic al Service) alcohol, no illicit drugs, 4 illicit drugs, children, single 4 children, single Smoking 11/18/2019 Current every completed Current every day MEDG EN ([facility] 12:00:00 AM EDT day smoker smoker Medical S ervice) Smoking 10/30/2019 +tob 1 pack a completed +tob 1 pack a day, MED GEN ([facility] 12:00:00 AM EDT day, no no alcohol, no Medic al Service) alcohol, no illicit drugs, 4 illicit drugs, children, single 4 children, single Smoking 10/30/2019 Current every completed Current every day MEDG EN ([place] 12:00:00 AM EDT day smoker smoker Medical S erjasone) Smoking 09/19/2019 Daily Smoker completed Daily Smoker [facility] 03:30:00 PM EDT Medical C enter Smoking 09/19/2019 Daily Smoker completed Daily Smoker [facility] 02:59:00 PM EDT Medical C enter Smoking 09/19/2019 Daily Smoker completed Daily Smoker [facility] 02:11:00 PM EDT Medical C enter Smoking 08/13/2019 Daily Smoker completed Daily Smoker [facility] 07:28:00 AM EDT Medical C enter Smoking 08/12/2019 Daily Smoker completed Daily Smoker [facility] 10:37:00 PM EDT Medical C enter Smoking 08/12/2019 Daily Smoker completed Daily Smoker [facility] 04:38:00 PM EDT Medical C enter Smoking 08/12/2019 Daily Smoker completed Daily Smoker [facility] 02:24:00 PM EDT Medical C enter Smoking 08/12/2019 Daily Smoker completed Daily Smoker [facility] 02:20:00 PM EDT Medical C enter Smoking 04/14/2019 Daily Smoker completed Daily Smoker [facility] 11:09:00 AM EST Medical C enter Smoking 04/14/2019 Daily Smoker completed Daily Smoker [facility] 11:05:00 AM EST Medical C enter Smoking 04/14/2019 Daily Smoker completed Daily Smoker [facility] 10:56:00 AM EST Medical C enter Smoking Unknown if ever completed Unknown if ever Vivek Biswas smoked smoked [facility] Vital Signs ID Date Data Source UNK Name Value Range Interpretation Code Description Data Source(s) Body temperature 36.639252 36.831070 [facility] Respiratory rate 18 /min 18 /min [facility] Heart rate 76 /min 76 /min [facility] Diastolic blood 76 mm[Hg] 76 mm[Hg] [facility] Systolic blood 131 mm[Hg] 131 mm[Hg] [facility] Body temperature 36.505586 36.928606 [facility] Respiratory rate 20 /min 20 /min [facility] Heart rate 78 /min 78 /min [facility] Diastolic blood 61 mm[Hg] 61 mm[Hg] [facility] Systolic blood 118 mm[Hg] 118 mm[Hg] [facility] Body temperature 36.898026 36.410077 [facility] Respiratory rate 20 /min 20 /min [facility] Heart rate 84 /min 84 /min [facility] Diastolic blood 69 mm[Hg] 69 mm[Hg] [facility] Systolic blood 116 mm[Hg] 116 mm[Hg] [facility] Oxygen saturation 97 % 97 % [facility] in Arterial blood [facility] by Pulse oximetry Body temperature 36.983534 36.633438 [facility] Respiratory rate 20 /min 20 /min [facility] Heart rate 84 /min 84 /min [facility] Diastolic blood 84 mm[Hg] 84 mm[Hg] [facility] Systolic blood 129 mm[Hg] 129 mm[Hg] [facility] Body temperature 37.496002 37.080061 [facility] Respiratory rate 20 /min 20 /min [facility] Heart rate 95 /min 95 /min [facility] Diastolic blood 69 mm[Hg] 69 mm[Hg] [facility] pressure Medical Center Systolic blood 102 mm[Hg] 102 mm[Hg] [facility] Diastolic blood 57 mm[Hg] 57 mm[Hg] [facility] Systolic blood 111 mm[Hg] 111 mm[Hg] [facility] Body temperature 36.591111 36.701670 [facility] Respiratory rate 20 /min 20 /min [facility] Heart rate 80 /min 80 /min [facility] Body temperature 36.681123 36.606574 [facility] Respiratory rate 18 /min 18 /min [facility] Heart rate 79 /min 79 /min [facility] Diastolic blood 68 mm[Hg] 68 mm[Hg] [facility] [place] Systolic blood 109 mm[Hg] 109 mm[Hg] [facility] Body weight 89.541244 kg 89.757180 kg [facility] Measured [facility] Body height 170.623194 170.954585 cm [facility] Body mass index 30.94 kg/m2 30.94 kg/m2 [facility] (BMI) [Ratio] Medical [facility] ter Body temperature 36.831472 36.418943 [facility] Respiratory rate 18 /min 18 /min [facility] Heart rate 50 /min 50 /min [facility] Diastolic blood 59 mm[Hg] 59 mm[Hg] [facility] Systolic blood 107 mm[Hg] 107 mm[Hg] [facility] Body weight 84.170906 kg 84.642564 kg [facility] Oxygen saturation 99 % 99 % [facility] in Arterial blood [facility] by Pulse oximetry Body height 170.642753 170.434153 cm [facility] Body mass index 29.2 kg/m2 29.2 kg/m2 [facility] (BMI) [Ratio] Medical [facility] ter Body temperature 37.203009 37.757745 [facility] Respiratory rate 17 /min 17 /min [facility] Heart rate 93 /min 93 /min [facility] Diastolic blood 91 mm[Hg] 91 mm[Hg] [facility] [place] Systolic blood 140 mm[Hg] 140 mm[Hg] [facility] Body temperature 36.813798 36.130059 [facility] Respiratory rate 17 /min 17 /min [facility] Oxygen saturation 99 % 99 % [facility] Arterial blood [facility] by Pulse oximetry Heart rate 81 /min 81 /min [facility] Diastolic blood 78 mm[Hg] 78 mm[Hg] [facility] Systolic blood 131 mm[Hg] 131 mm[Hg] [facility] Body temperature 36.986685 36.328238 [facility] Respiratory rate 18 /min 18 /min [facility] Oxygen saturation 96 % 96 % [facility] blood [facility] by Pulse oximetry Heart rate 77 /min 77 /min [facility] Diastolic blood 69 mm[Hg] 69 mm[Hg] [facility] Systolic blood 114 mm[Hg] 114 mm[Hg] [facility] Body temperature 99 F 99 F [facility] [facility] Body mass index 32.1 kg/m2 32.1 kg/m2 MEDGEN (BMI) [Ratio] ([place] [facility]) Diastolic blood 80 mm[Hg] 80 mm[Hg] MEDGEN pressure ([place] [facility]) Systolic blood 124 mm[Hg] 124 mm[Hg] MEDGEN pressure ([place] [facility]) Body weight 187 lb 187 lb MEDGEN ([facility]) Body height 64 in 64 in MEDGEN ([facility]) Body temperature 36.929873 36.443657 [facility] Respiratory rate 17 /min 17 /min [facility] Oxygen saturation 99 % 99 % [facility] blood [facility] by Pulse oximetry Heart rate 78 /min 78 /min [facility] Diastolic blood 84 mm[Hg] 84 mm[Hg] [facility] Systolic blood 132 mm[Hg] 132 mm[Hg] [facility] Body temperature 36.921539 36.576650 [facility] Respiratory rate 17 /min 17 /min [facility] Oxygen saturation 99 % 99 % [facility] Arterial blood [facility] by Pulse oximetry Heart rate 80 /min 80 /min [facility] Diastolic blood 84 mm[Hg] 84 mm[Hg] [facility] pressure Medical [place] Systolic blood 126 mm[Hg] 126 mm[Hg] [facility] Body temperature 36.492521 36.873566 [facility] Respiratory rate 18 /min 18 /min [facility] Oxygen saturation 98 % 98 % [facility] Arterial blood [facility] by Pulse oximetry Heart rate 76 /min 76 /min [facility] Diastolic blood 85 mm[Hg] 85 mm[Hg] [facility] pressure Medical [place] Systolic blood 117 mm[Hg] 117 mm[Hg] [facility] Body temperature 99 F 99 F MEDGEN ([place] [facility]) Diastolic blood 80 mm[Hg] 80 mm[Hg] MEDGEN pressure ([place] [facility]) Systolic blood 120 mm[Hg] 120 mm[Hg] MEDGEN pressure ([place] [facility]) Body height 64 in 64 in MEDGEN ([facility] [facility]) Body temperature 99 F 99 F MEDGEN ([place] [facility]) Diastolic blood 80 mm[Hg] 80 mm[Hg] MEDGEN pressure ([place] [facility]) Systolic blood 120 mm[Hg] 120 mm[Hg] MEDGEN pressure ([place] [facility]) Body height 64 in 64 in [facility] ([place] [facility]) Body temperature 37.722607 37.869246 [facility] Respiratory rate 18 /min 18 /min [facility] Oxygen saturation 97 % 97 % [facility] Arterial blood [facility] by Pulse oximetry Heart rate 88 /min 88 /min [facility] Diastolic blood 80 mm[Hg] 80 mm[Hg] [facility] pressure [facility] Systolic blood 149 mm[Hg] 149 mm[Hg] [facility] Body temperature 37.571481 37.117168 [facility] Respiratory rate 18 /min 18 /min [facility] Oxygen saturation 96 % 96 % [facility] blood [facility] by Pulse oximetry Heart rate 94 /min 94 /min [facility] Diastolic blood 81 mm[Hg] 81 mm[Hg] [facility] pressure Medical Center Systolic blood 152 mm[Hg] 152 mm[Hg] [facility] pressure Medical Center Body weight 89.856842 kg 89.621572 kg [facility] Measured [facility] Center Body temperature 37.523535 37.794976 [facility] Respiratory rate 20 /min 20 /min [facility] Oxygen saturation 96 % 96 % [facility] in Arterial blood [facility] by Pulse oximetry Heart rate 119 /min 119 /min [facility] Body height 170.139294 170.328072 cm [facility] Center Diastolic blood 94 mm[Hg] 94 mm[Hg] [facility] pressure Medical Center Systolic blood 150 mm[Hg] 150 mm[Hg] [facility] pressure Medical Center Body mass index 30.7 kg/m2 30.7 kg/m2 [facility] (BMI) [Ratio] Medical [address] Body temperature 99 F 99 F MEDGEN ([place] [facility]) Diastolic blood 80 mm[Hg] 80 mm[Hg] MEDGEN pressure ([facility] [facility]) Systolic blood 126 mm[Hg] 126 mm[Hg] MEDGEN pressure ([facility]) Body temperature 99 F 99 F MEDGEN ([place] [facility]) Diastolic blood 80 mm[Hg] 80 mm[Hg] MEDGEN pressure ([facility]) Systolic blood 126 mm[Hg] 126 mm[Hg] MEDGEN pressure ([facility]) Body temperature 99 F 99 F MEDGEN ([place] [facility]) Diastolic blood 80 mm[Hg] 80 mm[Hg] MEDGEN pressure ([facility]) Systolic blood 126 mm[Hg] 126 mm[Hg] MEDGEN pressure ([facility]) Heart rate 80 /min 80 /min MEDGEN ([place] [facility]) Respiratory rate 11 /min 11 /min MED[facility] ([facility]) Body temperature 97.6 F 97.6 F MEDGEN ([place] [facility]) Body mass index 31.5 kg/m2 31.5 kg/m2 MEDGEN (BMI) [Ratio] ([facility]) Diastolic blood 80 mm[Hg] 80 mm[Hg] MEDGEN pressure ([place] [facility]) Systolic blood 140 mm[Hg] 140 mm[Hg] MEDGEN pressure ([facility]) Body weight 195 lb 195 lb MEDGEN ([place] [facility]) Body height 66 in 66 in MEDGEN ([place] [facility]) Heart rate 80 /min 80 /min MEDGEN ([place] [facility]) Respiratory rate 11 /min 11 /min MEDGEN ([place] [facility]) Body temperature 97.6 F 97.6 F MEDGEN ([place] [facility]) Body mass index 31.5 kg/m2 31.5 kg/m2 MEDGEN (BMI) [Ratio] ([place] [facility]) Diastolic blood 80 mm[Hg] 80 mm[Hg] MEDGEN pressure ([place] [facility]) Systolic blood 140 mm[Hg] 140 mm[Hg] MEDGEN pressure ([place] [facility]) Body weight 195 lb 195 lb MEDGEN ([place] [facility]) Body height 66 in 66 in MEDGEN ([place] [facility]) Heart rate 80 /min 80 /min MEDGEN ([place] [facility]) Respiratory rate 11 /min 11 /min MEDGEN ([place] [facility]) Body temperature 97.6 F 97.6 F MEDGEN ([place] [facility]) Body mass index 31.5 kg/m2 31.5 kg/m2 MEDGEN (BMI) [Ratio] ([place] [facility]) Diastolic blood 80 mm[Hg] 80 mm[Hg] MEDGEN pressure ([place] [facility]) Systolic blood 140 mm[Hg] 140 mm[Hg] MEDGEN pressure ([place] [facility]) Body weight 195 lb 195 lb MEDGEN ([place] [facility]) Body height 66 in 66 in MEDGEN ([place] [facility]) Heart rate 80 /min 80 /min MEDGEN ([facility]) Respiratory rate 11 /min 11 /min MED[facility] ([facility]) Body temperature 97.6 F 97.6 F [facility] ([facility]) Body mass index 31.5 kg/m2 31.5 kg/m2 [facility] (BMI) [Ratio] ([facility]) Diastolic blood 80 mm[Hg] 80 mm[Hg] [facility] pressure ([facility]) Systolic blood 140 mm[Hg] 140 mm[Hg] [facility] pressure ([facility]) Body weight 195 lb 195 lb [facility] ([facility]) Body height 66 in 66 in [facility] ([facility]) Heart rate 80 /min 80 /min [facility] ([facility]) Respiratory rate 11 /min 11 /min [facility] ([facility]) Body temperature 97.6 F 97.6 F [facility] ([facility]) Body mass index 31.5 kg/m2 31.5 kg/m2 [facility] (BMI) [Ratio] ([facility]) Diastolic blood 70 mm[Hg] 70 mm[Hg] [facility] pressure ([facility]) Systolic blood 110 mm[Hg] 110 mm[Hg] [facility] pressure ([facility]) Body weight 195 lb 195 lb [facility] ([facility]) Body height 66 in 66 in [facility]GEN ([facility]) Heart rate 80 /min 80 /min [facility] ([facility]) Respiratory rate 11 /min 11 /min [facility] ([facility]) Body temperature 97.6 F 97.6 F [facility] ([facility]) Body mass index 31.5 kg/m2 31.5 kg/m2 MEDGEN (BMI) [Ratio] ([facility]) Diastolic blood 70 mm[Hg] 70 mm[Hg] MED[facility] pressure ([facility]) Systolic blood 110 mm[Hg] 110 mm[Hg] [facility] pressure ([facility]) Body weight 195 lb 195 lb [facility] ([facility]) Body height 66 in 66 in MEDGEN ([facility]) Heart rate 80 /min 80 /min [facility] ([facility]) Respiratory rate 11 /min 11 /min [facility] ([facility]) Body temperature 97.6 F 97.6 F [facility] ([facility]) Body mass index 31.5 kg/m2 31.5 kg/m2 MEDGEN (BMI) [Ratio] ([facility]) Diastolic blood 70 mm[Hg] 70 mm[Hg] [facility] pressure ([facility]) Systolic blood 110 mm[Hg] 110 mm[Hg] [facility] pressure ([facility]) Body weight 195 lb 195 lb MED[facility] ([facility]) Body height 66 in 66 in MEDGEN ([facility]) Heart rate 80 /min 80 /min [facility] ([facility]) Respiratory rate 11 /min 11 /min [facility] ([facility]) Body temperature 97.6 F 97.6 F [facility] ([facility]) Body mass index 31.5 kg/m2 31.5 kg/m2 MEDGEN (BMI) [Ratio] ([facility]) Diastolic blood 70 mm[Hg] 70 mm[Hg] MEDGEN pressure ([facility]) Systolic blood 110 mm[Hg] 110 mm[Hg] MEDGEN pressure ([facility]) Body weight 195 lb 195 lb MED[facility] ([facility]) Body height 66 in 66 in [facility] ([facility]) Heart rate 80 /min 80 /min [facility] ([facility]) [facility] /min 11 [facility] Body temperature 97.6 F 97.6 F [facility] ([facility]) Body mass index 31.5 kg/m2 31.5 kg/m2 MEDGEN (BMI) [Ratio] ([facility]) Diastolic blood 70 mm[Hg] 70 mm[Hg] MED[facility] pressure ([facility]) Systolic blood 110 mm[Hg] 110 mm[Hg] MED[facility] pressure ([facility]) Body weight 195 lb 195 lb [facility] Body height 66 in 66 in [facility] ([facility]) Body temperature 36.957227 36.159942 [facility] Respiratory rate 18 /min 18 /min [facility] Oxygen saturation 98 % 98 % [facility] Arterial blood [facility] by Pulse oximetry Heart rate 78 /min 78 /min [facility] Diastolic blood 70 mm[Hg] 70 mm[Hg] [facility] Systolic blood 130 mm[Hg] 130 mm[Hg] [facility] Body temperature 36.556440 36.858105 [facility] Respiratory rate 18 /min 18 /min [facility] Oxygen saturation 99 % 99 % [facility] Arterial blood [facility] by Pulse oximetry Heart rate 76 /min 76 /min [facility] Diastolic blood 69 mm[Hg] 69 mm[Hg] [facility] Systolic blood 133 mm[Hg] 133 mm[Hg] [facility] Body weight 90.611613 kg 90.936184 kg [facility] Body temperature 37.339973 37.561331 [facility] Respiratory rate 19 /min 19 /min [facility] Oxygen saturation 97 % 97 % [facility] blood [facility] by Pulse oximetry Heart rate 88 /min 88 /min [facility] Body height 170.236114 170.005887 cm [facility] Diastolic blood 76 mm[Hg] 76 mm[Hg] [facility] pressure [facility] Systolic blood 145 mm[Hg] 145 mm[Hg] [facility] Body mass index 31.0 kg/m2 31.0 kg/m2 [facility] (BMI) [Ratio] Medical [facility] Heart rate 80 /min 80 /min [facility] ([facility]) Respiratory rate 11 /min 11 /min [facility] ([facility]) Body temperature 97.6 F 97.6 F [facility] ([facility]) Body mass index 31.5 kg/m2 31.5 kg/m2 [facility] (BMI) [Ratio] ([facility]) Diastolic blood 70 mm[Hg] 70 mm[Hg] [facility] pressure ([facility]) Systolic blood 122 mm[Hg] 122 mm[Hg] [facility] pressure ([facility]) Body weight 195 lb 195 lb [facility] ([facility]) Body height 66 in 66 in [facility] ([facility]) Heart rate 80 /min 80 /min [facility] ([facility]) Respiratory rate 11 /min 11 /min [facility] ([facility]) Body temperature 97.6 F 97.6 F [facility] ([facility]) Body mass index 31.5 kg/m2 31.5 kg/m2 [facility] (BMI) [Ratio] ([facility]) Diastolic blood 70 mm[Hg] 70 mm[Hg] [facility] pressure ([facility]) Systolic blood 122 mm[Hg] 122 mm[Hg] [facility] pressure ([facility]) Body weight 195 lb 195 lb [facility] ([facility]) Body height 66 in 66 in [facility]GEN ([facility]) Heart rate 80 /min 80 /min [facility] ([facility]) Respiratory rate 11 /min 11 /min [facility] ([facility]) Body temperature 97.6 F 97.6 F [facility] ([facility]) Body mass index 31.5 kg/m2 31.5 kg/m2 [facility] (BMI) [Ratio] ([facility]) Diastolic blood 70 mm[Hg] 70 mm[Hg] [facility] pressure ([facility]) Systolic blood 122 mm[Hg] 122 mm[Hg] MEDGEN pressure ([facility]) Body weight 195 lb 195 lb MED[facility] ([facility]) Body height 66 in 66 in [facility] ([facility]) Heart rate 80 /min 80 /min [facility] ([facility]) Respiratory rate 11 /min 11 /min [facility] ([facility]) Body temperature 97.6 F 97.6 F [facility] ([facility]) Body mass index 31.5 kg/m2 31.5 kg/m2 [facility] (BMI) [Ratio] ([facility]) Diastolic blood 70 mm[Hg] 70 mm[Hg] MED[facility] pressure ([facility]) Systolic blood 122 mm[Hg] 122 mm[Hg] [facility] pressure ([facility]) Body weight 195 lb 195 lb [facility] ([facility]) Body height 66 in 66 in [facility] ([facility]) Heart rate 80 /min 80 /min [facility] ([facility]) Respiratory rate 11 /min 11 /min [facility] ([facility]) Body temperature 97.6 F 97.6 F [facility] ([facility]) Body mass index 31.5 kg/m2 31.5 kg/m2 [facility] (BMI) [Ratio] ([facility]) Diastolic blood 70 mm[Hg] 70 mm[Hg] [facility] pressure ([facility]) Systolic blood 122 mm[Hg] 122 mm[Hg] [facility] pressure ([facility]) Body weight 195 lb 195 lb [facility] ([facility]) Body height 66 in 66 in [facility] ([facility]) Diastolic blood 77 mm[Hg] 77 mm[Hg] [facility] Systolic blood 121 mm[Hg] 121 mm[Hg] [facility] Body temperature 36.607184 36.484864 [facility] Respiratory rate 18 /min 18 /min [facility] Heart rate 84 /min 84 /min [facility] Body temperature 36.942936 36.214958 [facility] Respiratory rate 20 /min 20 /min [facility] Oxygen saturation 95 % 95 % [facility] in [facility] blood [facility] [place] by Pulse oximetry Heart rate 70 /min 70 /min [facility] Diastolic blood 61 mm[Hg] 61 mm[Hg] [facility] Systolic blood 114 mm[Hg] 114 mm[Hg] [facility] Body weight 93.517868 kg 93.417811 kg [facility] Measured [facility] Body height 167.266850 167.402969 cm [facility] [place] Body mass index 32.95 kg/m2 32.95 kg/m2 [facility] (BMI) [Ratio] Medical [facility] ter Body weight 92.344413 kg 92.030572 kg [facility] Measured [facility] Body temperature 36.999436 36.066628 [facility] Respiratory rate 18 /min 18 /min [facility] Heart rate 78 /min 78 /min [facility] Body height 167.618646 167.862582 cm [facility] [place] Diastolic blood 78 mm[Hg] 78 mm[Hg] [facility] pressure [facility] Center Systolic blood 118 mm[Hg] 118 mm[Hg] [facility] Body mass index 33.09 kg/m2 33.09 kg/m2 [facility] (BMI) [Ratio] Medical [facility] ter Body temperature 36.081361 36.892144 [facility] Respiratory rate 18 /min 18 /min [facility] Oxygen saturation 98 % 98 % [facility] Ar[facility]ial blood [facility] by Pulse oximetry Heart rate 75 /min 75 /min [facility] Diastolic blood 79 mm[Hg] 79 mm[Hg] [facility] pressure [facility] Systolic blood 132 mm[Hg] 132 mm[Hg] [facility] Body temperature 36.465497 36.747918 [facility] Respiratory rate 18 /min 18 /min [facility] Oxygen saturation 97 % 97 % [facility] Arterial blood [facility] by Pulse oximetry Heart rate 80 /min 80 /min [facility] Diastolic blood 77 mm[Hg] 77 mm[Hg] [facility] pressure [facility] Systolic blood 126 mm[Hg] 126 mm[Hg] [facility] Body weight 93.230399 kg 93.634882 kg [facility] Oxygen saturation 97 % 97 % [facility] Arterial blood [facility] by Pulse oximetry Body height 167.247495 167.577580 cm [facility] Body mass index 32.9 kg/m2 32.9 kg/m2 [facility] (BMI) [Ratio] [facility] Heart rate 80 /min 80 /min [facility] ([facility]) Respiratory rate 11 /min 11 /min [facility] ([facility]) Body temperature 97.6 F 97.6 F [facility] ([facility]) Body mass index 31.5 kg/m2 31.5 kg/m2 [facility] (BMI) [Ratio] ([facility]) Diastolic blood 80 mm[Hg] 80 mm[Hg] MEDGEN pressure ([facility]) Systolic blood 122 mm[Hg] 122 mm[Hg] MED[facility] pressure ([facility]) Body weight 195 lb 195 lb [facility] ([facility]) Body height 66 in 66 in [facility] ([facility]) Heart rate 80 /min 80 /min [facility] ([facility]) Respiratory rate 11 /min 11 /min [facility] ([facility]) Body temperature 97.6 F 97.6 F [facility] ([facility]) Body mass index 31.5 kg/m2 31.5 kg/m2 [facility] (BMI) [Ratio] ([facility]) Diastolic blood 80 mm[Hg] 80 mm[Hg] MED[facility] pressure ([facility]) Systolic blood 122 mm[Hg] 122 mm[Hg] [facility] pressure ([facility]) Body weight 195 lb 195 lb [facility] ([facility]) Body height 66 in 66 in [facility] ([facility]) Heart rate 80 /min 80 /min [facility] ([facility]) Respiratory rate 11 /min 11 /min [facility] ([facility]) Body temperature 97.6 F 97.6 F [facility] ([facility]) Body mass index 31.5 kg/m2 31.5 kg/m2 [facility] (BMI) [Ratio] ([facility]) Diastolic blood 80 mm[Hg] 80 mm[Hg] MED[facility] pressure ([facility]) Systolic blood 122 mm[Hg] 122 mm[Hg] [facility] pressure ([facility]) Body weight 195 lb 195 lb [facility] ([facility]) Body height 66 in 66 in [facility] ([facility]) Heart rate 80 /min 80 /min [facility] ([facility]) Respiratory rate 11 /min 11 /min [facility] ([facility]) Body temperature 97.6 F 97.6 F [facility] ([facility]) Body mass index 31.5 kg/m2 31.5 kg/m2 [facility] (BMI) [Ratio] ([facility]) Diastolic blood 80 mm[Hg] 80 mm[Hg] MEDGEN pressure ([facility]) Systolic blood 122 mm[Hg] 122 mm[Hg] MEDGEN pressure ([facility]) Body weight 195 lb 195 lb MEDGEN ([facility]) Body height 66 in 66 in [facility] ([facility]) Heart rate 80 /min 80 /min [facility] ([facility]) Respiratory rate 11 /min 11 /min [facility] ([facility]) Body temperature 97.6 F 97.6 F [facility] ([facility]) Body mass index 31.5 kg/m2 31.5 kg/m2 [facility] (BMI) [Ratio] ([facility]) Diastolic blood 80 mm[Hg] 80 mm[Hg] MEDGEN pressure ([facility]) Systolic blood 122 mm[Hg] 122 mm[Hg] [facility] pressure ([facility]) Body weight 195 lb 195 lb MEDGEN ([facility]) Body height 66 in 66 in [facility]GEN ([facility]) Heart rate 80 /min 80 /min [facility] ([facility]) Respiratory rate 11 /min 11 /min [facility] ([facility]) Body temperature 97.6 F 97.6 F [facility] ([facility]) Body mass index 31.5 kg/m2 31.5 kg/m2 [facility] (BMI) [Ratio] ([facility]) Diastolic blood 80 mm[Hg] 80 mm[Hg] MEDGEN pressure ([facility]) Systolic blood 122 mm[Hg] 122 mm[Hg] MEDGEN pressure ([facility]) Body weight 195 lb 195 lb MEDGEN ([facility]) Body height 66 in 66 in MEDGEN ([facility]) Heart rate 80 /min 80 /min [facility] ([facility]) Respiratory rate 11 /min 11 /min [facility] ([facility]) Body temperature 97.6 F 97.6 F [facility] ([facility]) Body mass index 31.5 kg/m2 31.5 kg/m2 [facility] (BMI) [Ratio] ([facility]) Diastolic blood 80 mm[Hg] 80 mm[Hg] MEDGEN pressure ([facility]) Systolic blood 122 mm[Hg] 122 mm[Hg] MEDGEN pressure ([facility]) Body weight 195 lb 195 lb MEDGEN ([facility]) Body height 66 in 66 in MEDGEN ([facility]) Heart rate 80 /min 80 /min MED[facility] ([facility]) Respiratory rate 11 /min 11 /min [facility] ([facility]) Body temperature 97.6 F 97.6 F [facility] ([facility]) Body mass index 31.5 kg/m2 31.5 kg/m2 MEDGEN (BMI) [Ratio] ([facility]) Diastolic blood 80 mm[Hg] 80 mm[Hg] MED[facility] pressure ([facility]) Systolic blood 122 mm[Hg] 122 mm[Hg] MEDGEN pressure ([facility]) Body weight 195 lb 195 lb MEDGEN ([facility]) Body height 66 in 66 in MEDGEN ([facility]) Heart rate 80 /min 80 /min [facility] ([facility]) Respiratory rate 11 /min 11 /min [facility] ([facility]) Body temperature 97.6 F 97.6 F [facility] ([facility]) Body mass index 31.5 kg/m2 31.5 kg/m2 [facility] (BMI) [Ratio] ([facility]) Diastolic blood 80 mm[Hg] 80 mm[Hg] MEDGEN pressure ([facility]) Systolic blood 122 mm[Hg] 122 mm[Hg] MED[facility] pressure ([facility]) Body weight 195 lb 195 lb MEDGEN ([facility]) Body height 66 in 66 in MEDGEN ([facility]) Heart rate 80 /min 80 /min [facility] ([facility]) Respiratory rate 11 /min 11 /min [facility] ([facility]) Body temperature 97.6 F 97.6 F [facility] ([facility]) Body mass index 31.5 kg/m2 31.5 kg/m2 [facility] (BMI) [Ratio] ([facility]) Diastolic blood 80 mm[Hg] 80 mm[Hg] MED[facility] pressure ([facility]) Systolic blood 122 mm[Hg] 122 mm[Hg] MEDGEN pressure ([facility]) Body weight 195 lb 195 lb MEDGEN ([facility]) Body height 66 in 66 in [facility] ([facility]) Body temperature 37.503460 37.942381 [facility] Respiratory rate 18 /min 18 /min [facility] Oxygen saturation 98 % 98 % [facility] J [facility] in Arterial blood [facility] by Pulse oximetry Heart rate 75 /min 75 /min [facility] Diastolic blood 78 mm[Hg] 78 mm[Hg] [facility] pressure [facility] Systolic blood 131 mm[Hg] 131 mm[Hg] [facility] Center Body weight 86.391112 kg 86.163742 kg [facility] Measured [facility] Body temperature 36.454300 36.034112 [facility] Respiratory rate 18 /min 18 /min [facility] Oxygen saturation 98 % 98 % [facility] J [facility] in Arterial [facility] by Pulse oximetry Heart rate 82 /min 82 /min [facility] Body height 167.677485 167.043989 cm [facility] Diastolic blood 79 mm[Hg] 79 mm[Hg] [facility] Systolic blood 135 mm[Hg] 135 mm[Hg] [facility] Center Body mass index 30.6 kg/m2 30.6 kg/m2 [facility] (BMI) [Ratio] Medical [facility] Heart rate 80 /min 80 /min MEDGEN ([facility]) Respiratory rate 11 /min 11 /min [facility] ([facility]) Body temperature 97.6 F 97.6 F [facility] ([facility]) Body mass index 29.5 kg/m2 29.5 kg/m2 MEDGEN (BMI) [Ratio] ([facility]) Diastolic blood 60 mm[Hg] 60 mm[Hg] MEDGEN pressure ([facility]) Systolic blood 110 mm[Hg] 110 mm[Hg] MED[facility] pressure ([facility]) Body weight 183 lb 183 lb [facility] ([facility]) Body height 66 in 66 in [facility] ([facility]) Heart rate 80 /min 80 /min [facility] ([facility]) Respiratory rate 11 /min 11 /min [facility] ([facility]) Body temperature 97.6 F 97.6 F [facility] ([facility]) Body mass index 29.5 kg/m2 29.5 kg/m2 MEDGEN (BMI) [Ratio] ([facility]) Diastolic blood 60 mm[Hg] 60 mm[Hg] MEDGEN pressure ([facility]) Systolic blood 110 mm[Hg] 110 mm[Hg] [facility]GEN pressure ([facility]) Body weight 183 lb 183 lb MEDGEN ([facility]) Body height 66 in 66 in MEDGEN ([facility]) Heart rate 80 /min 80 /min [facility] ([facility]) Respiratory rate 11 /min 11 /min [facility] ([facility]) Body temperature 97.6 F 97.6 F [facility] ([facility]) Body mass index 29.5 kg/m2 29.5 kg/m2 [facility] (BMI) [Ratio] ([facility]) Diastolic blood 60 mm[Hg] 60 mm[Hg] MED[facility] pressure ([facility]) Systolic blood 110 mm[Hg] 110 mm[Hg] MEDGEN pressure ([facility]) Body weight 183 lb 183 lb MEDGEN ([facility]) Body height 66 in 66 in MEDGEN ([facility]) Heart rate 80 /min 80 /min [facility] ([facility]) Respiratory rate 11 /min 11 /min [facility] ([facility]) Body temperature 97.6 F 97.6 F [facility] ([facility]) Body mass index 29.5 kg/m2 29.5 kg/m2 [facility] (BMI) [Ratio] ([facility]) Diastolic blood 60 mm[Hg] 60 mm[Hg] MEDGEN pressure ([facility]) Systolic blood 110 mm[Hg] 110 mm[Hg] MEDGEN pressure ([facility]) Body weight 183 lb 183 lb MEDGEN ([facility]) Body height 66 in 66 in MEDGEN ([facility]) Heart rate 80 /min 80 /min [facility] ([facility]) Respiratory rate 11 /min 11 /min [facility] ([facility]) Body temperature 97.6 F 97.6 F [facility] ([facility]) Body mass index 29.5 kg/m2 29.5 kg/m2 [facility] (BMI) [Ratio] ([facility]) Diastolic blood 60 mm[Hg] 60 mm[Hg] MEDGEN pressure ([facility]) Systolic blood 110 mm[Hg] 110 mm[Hg] MEDGEN pressure ([facility]) Body weight 183 lb 183 lb MEDGEN ([facility]) Body height 66 in 66 in MEDGEN ([facility]) Heart rate 80 /min 80 /min [facility] ([facility]) Respiratory rate 11 /min 11 /min [facility] ([facility]) Body temperature 97.6 F 97.6 F [facility] ([facility]) Body mass index 29.5 kg/m2 29.5 kg/m2 [facility] (BMI) [Ratio] ([facility]) Diastolic blood 60 mm[Hg] 60 mm[Hg] MEDGEN pressure ([facility]) Systolic blood 100 mm[Hg] 100 mm[Hg] MEDGEN pressure ([facility]) Body weight 183 lb 183 lb [facility] ([facility]) Body height 66 in 66 in MEDGEN ([facility]) Heart rate 80 /min 80 /min [facility] ([facility]) Respiratory rate 11 /min 11 /min MED[facility] ([facility]) Body temperature 97.6 F 97.6 F MEDGEN ([facility]) Body mass index 29.5 kg/m2 29.5 kg/m2 MEDGEN (BMI) [Ratio] ([facility]) Diastolic blood 60 mm[Hg] 60 mm[Hg] MEDGEN pressure ([facility]) Systolic blood 100 mm[Hg] 100 mm[Hg] MEDGEN pressure ([facility]) Body weight 183 lb 183 lb MEDGEN ([facility]) Body height 66 in 66 in MEDGEN ([facility]) Heart rate 80 /min 80 /min MED[facility] ([facility]) Respiratory rate 11 /min 11 /min MEDGEN ([facility]) Body temperature 97.6 F 97.6 F MEDGEN ([facility]) Body mass index 29.5 kg/m2 29.5 kg/m2 MEDGEN (BMI) [Ratio] ([facility]) Diastolic blood 60 mm[Hg] 60 mm[Hg] MEDGEN pressure ([facility]) Systolic blood 100 mm[Hg] 100 mm[Hg] MEDGEN pressure ([facility]) Body weight 183 lb 183 lb MEDGEN ([facility]) Body height 66 in 66 in MEDGEN ([facility]) Heart rate 80 /min 80 /min MEDGEN ([facility]) Respiratory rate 11 /min 11 /min MEDGEN ([facility]) Body temperature 97.6 F 97.6 F MEDGEN ([facility]) Body mass index 29.5 kg/m2 29.5 kg/m2 MEDGEN (BMI) [Ratio] ([facility]) Diastolic blood 60 mm[Hg] 60 mm[Hg] MEDGEN pressure ([facility]) Systolic blood 100 mm[Hg] 100 mm[Hg] MEDGEN pressure ([facility]) Body weight 183 lb 183 lb MEDGEN ([facility]) Body height 66 in 66 in MEDGEN ([facility]) Heart rate 80 /min 80 /min MED[facility] ([facility]) Respiratory rate 11 /min 11 /min MEDGEN ([facility]) Body temperature 97.6 F 97.6 F MEDGEN ([facility]) Body mass index 29.5 kg/m2 29.5 kg/m2 MEDGEN (BMI) [Ratio] ([facility]) Diastolic blood 60 mm[Hg] 60 mm[Hg] MEDGEN pressure ([facility]) Systolic blood 100 mm[Hg] 100 mm[Hg] MEDGEN pressure ([facility]) Body weight 183 lb 183 lb MEDGEN ([facility]) Body height 66 in 66 in MEDGEN ([facility]) Heart rate 80 /min 80 /min MED[facility] ([facility]) Respiratory rate 11 /min 11 /min MEDGEN ([facility]) Body temperature 97.6 F 97.6 F MEDGEN ([facility]) Body mass index 29.5 kg/m2 29.5 kg/m2 MEDGEN (BMI) [Ratio] ([facility]) Diastolic blood 74 mm[Hg] 74 mm[Hg] MEDGEN pressure ([facility]) Systolic blood 118 mm[Hg] 118 mm[Hg] MEDGEN pressure ([facility]) Body weight 183 lb 183 lb MEDGEN ([facility]) Body height 66 in 66 in MEDGEN ([facility]) Heart rate 80 /min 80 /min MEDGEN ([facility]) Respiratory rate 11 /min 11 /min MEDGEN ([facility]) Body temperature 97.6 F 97.6 F MEDGEN ([facility]) Body mass index 29.5 kg/m2 29.5 kg/m2 MEDGEN (BMI) [Ratio] ([facility]) Diastolic blood 74 mm[Hg] 74 mm[Hg] MEDGEN pressure ([facility]) Systolic blood 118 mm[Hg] 118 mm[Hg] MEDGEN pressure ([facility]) Body weight 183 lb 183 lb MEDGEN ([facility]) Body height 66 in 66 in MEDGEN ([facility]) Heart rate 80 /min 80 /min MEDGEN ([facility]) Respiratory rate 11 /min 11 /min MEDGEN ([facility]) Body temperature 97.6 F 97.6 F MEDGEN ([facility]) Body mass index 29.5 kg/m2 29.5 kg/m2 MEDGEN (BMI) [Ratio] ([facility]) Diastolic blood 74 mm[Hg] 74 mm[Hg] MEDGEN pressure ([facility]) Systolic blood 118 mm[Hg] 118 mm[Hg] MEDGEN pressure ([facility]) Body weight 183 lb 183 lb MEDGEN ([facility]) Body height 66 in 66 in MEDGEN ([facility]) Heart rate 80 /min 80 /min MEDGEN ([facility]) Respiratory rate 11 /min 11 /min MEDGEN ([facility]) Body temperature 97.6 F 97.6 F MEDGEN ([facility]) Body mass index 29.5 kg/m2 29.5 kg/m2 MEDGEN (BMI) [Ratio] ([facility]) Diastolic blood 74 mm[Hg] 74 mm[Hg] MEDGEN pressure ([facility]) Systolic blood 118 mm[Hg] 118 mm[Hg] MEDGEN pressure ([facility]) Body weight 183 lb 183 lb MEDGEN ([facility]) Body height 66 in 66 in MEDGEN ([facility]) Heart rate 80 /min 80 /min MEDGEN ([facility]) Respiratory rate 11 /min 11 /min MEDGEN ([facility]) Body temperature 97.6 F 97.6 F MEDGEN ([facility]) Body mass index 29.5 kg/m2 29.5 kg/m2 MEDGEN (BMI) [Ratio] ([facility]) Diastolic blood 74 mm[Hg] 74 mm[Hg] MEDGEN pressure ([facility]) Systolic blood 118 mm[Hg] 118 mm[Hg] MEDGEN pressure ([facility]) Body weight 183 lb 183 lb MEDGEN ([facility]) Body height 66 in 66 in MEDGEN ([facility]) Heart rate 80 /min 80 /min MEDGEN ([facility]) Respiratory rate 11 /min 11 /min MEDGEN ([facility]) Body temperature 97.6 F 97.6 F MEDGEN ([facility]) Body mass index 29.5 kg/m2 29.5 kg/m2 MEDGEN (BMI) [Ratio] ([facility]) Diastolic blood 78 mm[Hg] 78 mm[Hg] MEDGEN pressure ([facility]) Systolic blood 128 mm[Hg] 128 mm[Hg] MEDGEN pressure ([facility]) Body weight 183 lb 183 lb MEDGEN ([facility]) Body height 66 in 66 in MEDGEN ([facility]) Heart rate 80 /min 80 /min MEDGEN ([facility]) Respiratory rate 11 /min 11 /min MEDGEN ([facility]) Body temperature 97.6 F 97.6 F MEDGEN ([facility]) Body mass index 29.5 kg/m2 29.5 kg/m2 MEDGEN (BMI) [Ratio] ([facility]) Diastolic blood 78 mm[Hg] 78 mm[Hg] MEDGEN pressure ([facility]) Systolic blood 128 mm[Hg] 128 mm[Hg] MEDGEN pressure ([facility]) Body weight 183 lb 183 lb MEDGEN ([facility]) Body height 66 in 66 in MEDGEN ([facility]) Heart rate 80 /min 80 /min MEDGEN ([facility]) Respiratory rate 11 /min 11 /min MEDGEN ([facility]) Body temperature 97.6 F 97.6 F MEDGEN ([facility]) Body mass index 29.5 kg/m2 29.5 kg/m2 MEDGEN (BMI) [Ratio] ([facility]) Diastolic blood 78 mm[Hg] 78 mm[Hg] MEDGEN pressure ([facility]) Systolic blood 128 mm[Hg] 128 mm[Hg] MEDGEN pressure ([facility]) Body weight 183 lb 183 lb MEDGEN ([facility]) Body height 66 in 66 in MEDGEN ([facility]) Heart rate 80 /min 80 /min MEDGEN ([facility]) Respiratory rate 11 /min 11 /min MEDGEN ([facility]) Body temperature 97.6 F 97.6 F MEDGEN ([facility]) Body mass index 29.5 kg/m2 29.5 kg/m2 MEDGEN (BMI) [Ratio] ([facility]) Diastolic blood 78 mm[Hg] 78 mm[Hg] MEDGEN pressure ([facility]) Systolic blood 128 mm[Hg] 128 mm[Hg] MEDGEN pressure ([facility]) Body weight 183 lb 183 lb MEDGEN ([facility]) Body height 66 in 66 in MEDGEN ([facility]) Heart rate 80 /min 80 /min MEDGEN ([facility]) Respiratory rate 11 /min 11 /min MEDGEN ([facility]) Body temperature 97.6 F 97.6 F MEDGEN ([facility]) Body mass index 29.5 kg/m2 29.5 kg/m2 MEDGEN (BMI) [Ratio] ([facility]) Diastolic blood 78 mm[Hg] 78 mm[Hg] MEDGEN pressure ([facility]) Systolic blood 128 mm[Hg] 128 mm[Hg] MEDGEN pressure ([facility]) Body weight 183 lb 183 lb MEDGEN ([facility]) Body height 66 in 66 in MEDGEN ([facility]) Heart rate 80 /min 80 /min MEDGEN ([facility]) Respiratory rate 16 /min 16 /min MEDGEN ([facility]) Body temperature 97.6 F 97.6 F MEDGEN ([facility]) Body mass index 29.5 kg/m2 29.5 kg/m2 MEDGEN (BMI) [Ratio] ([facility]) Diastolic blood 80 mm[Hg] 80 mm[Hg] MEDGEN pressure ([facility]) Systolic blood 120 mm[Hg] 120 mm[Hg] MEDGEN pressure ([facility]) Body weight 183 lb 183 lb MEDGEN ([facility]) Body height 66 in 66 in MEDGEN ([facility]) Heart rate 80 /min 80 /min MEDGEN ([facility]) Respiratory rate 16 /min 16 /min MEDGEN ([facility]) Body temperature 97.6 F 97.6 F MEDGEN ([facility]) Body mass index 29.5 kg/m2 29.5 kg/m2 MEDGEN (BMI) [Ratio] ([facility]) Diastolic blood 80 mm[Hg] 80 mm[Hg] MEDGEN pressure ([facility]) Systolic blood 120 mm[Hg] 120 mm[Hg] MEDGEN pressure ([facility]) Body weight 183 lb 183 lb MEDGEN ([facility]) Body height 66 in 66 in MEDGEN ([facility] Heart rate 80 /min 80 /min MEDGEN ([facility]) Respiratory rate 16 /min 16 /min MEDGEN ([facility]) Body temperature 97.6 F 97.6 F MEDGEN ([facility]) Body mass index 29.5 kg/m2 29.5 kg/m2 MEDGEN (BMI) [Ratio] ([facility]) Diastolic blood 80 mm[Hg] 80 mm[Hg] MEDGEN pressure ([facility]) Systolic blood 120 mm[Hg] 120 mm[Hg] MEDGEN pressure ([facility]) Body weight 183 lb 183 lb MEDGEN ([facility]) Body height 66 in 66 in MEDGEN ([facility]) Heart rate 80 /min 80 /min MEDGEN ([facility]) Respiratory rate 16 /min 16 /min MEDGEN ([facility]) Body temperature 97.6 F 97.6 F MEDGEN ([facility]) Body mass index 29.5 kg/m2 29.5 kg/m2 MEDGEN (BMI) [Ratio] ([facility]) Diastolic blood 80 mm[Hg] 80 mm[Hg] MEDGEN pressure ([facility]) Systolic blood 120 mm[Hg] 120 mm[Hg] MEDGEN pressure ([facility]) Body weight 183 lb 183 lb MEDGEN ([facility]) Body height 66 in 66 in MEDGEN ([facility]) Heart rate 80 /min 80 /min MEDGEN ([facility]) Respiratory rate 16 /min 16 /min MEDGEN ([facility]) Body temperature 97.6 F 97.6 F MEDGEN ([facility]) Body mass index 29.5 kg/m2 29.5 kg/m2 MEDGEN (BMI) [Ratio] ([facility]) Diastolic blood 80 mm[Hg] 80 mm[Hg] MEDGEN pressure ([facility]) Systolic blood 120 mm[Hg] 120 mm[Hg] MEDGEN pressure ([facility]) Body weight 183 lb 183 lb MEDGEN ([facility]) Body height 66 in 66 in MEDGEN ([facility] Heart rate 80 /min 80 /min MEDGEN ([facility]) Respiratory rate 16 /min 16 /min MEDGEN ([facility]) Body temperature 97.6 F 97.6 F MEDGEN ([facility]) Body mass index 29.5 kg/m2 29.5 kg/m2 MEDGEN (BMI) [Ratio] ([facility]) Diastolic blood 70 mm[Hg] 70 mm[Hg] MEDGEN pressure ([facility]) Systolic blood 100 mm[Hg] 100 mm[Hg] MEDGEN pressure ([facility]) Body weight 183 lb 183 lb MEDGEN ([facility]) Body height 66 in 66 in MEDGEN ([facility]) Heart rate 80 /min 80 /min MEDGEN ([facility]) Respiratory rate 16 /min 16 /min MEDGEN ([facility]) Body temperature 97.6 F 97.6 F MEDGEN ([facility]) Body mass index 29.5 kg/m2 29.5 kg/m2 MEDGEN (BMI) [Ratio] ([facility]) Diastolic blood 70 mm[Hg] 70 mm[Hg] MEDGEN pressure ([facility]) Systolic blood 100 mm[Hg] 100 mm[Hg] MEDGEN pressure ([facility]) Body weight 183 lb 183 lb MEDGEN ([facility]) Body height 66 in 66 in MEDGEN ([facility]) Heart rate 80 /min 80 /min MEDGEN ([facility]) Respiratory rate 16 /min 16 /min MEDGEN ([facility]) Body temperature 97.6 F 97.6 F MEDGEN ([facility]) Body mass index 29.5 kg/m2 29.5 kg/m2 MEDGEN (BMI) [Ratio] ([facility]) Diastolic blood 70 mm[Hg] 70 mm[Hg] MEDGEN pressure ([facility]) Systolic blood 100 mm[Hg] 100 mm[Hg] MEDGEN pressure ([facility]) Body weight 183 lb 183 lb MEDGEN ([facility]) Body height 66 in 66 in MEDGEN ([facility]) Heart rate 80 /min 80 /min MEDGEN ([facility]) Respiratory rate 16 /min 16 /min MEDGEN ([facility]) Body temperature 97.6 F 97.6 F MEDGEN ([facility]) Body mass index 29.5 kg/m2 29.5 kg/m2 MEDGEN (BMI) [Ratio] ([facility]) Diastolic blood 70 mm[Hg] 70 mm[Hg] MEDGEN pressure ([facility]) Systolic blood 100 mm[Hg] 100 mm[Hg] MEDGEN pressure ([facility]) Body weight 183 lb 183 lb MEDGEN ([facility]) Body height 66 in 66 in MEDGEN ([facility]) Heart rate 80 /min 80 /min MEDGEN ([facility]) Respiratory rate 16 /min 16 /min MEDGEN ([facility]) Body temperature 97.6 F 97.6 F MEDGEN ([facility]) Body mass index 29.5 kg/m2 29.5 kg/m2 MEDGEN (BMI) [Ratio] ([facility]) Diastolic blood 70 mm[Hg] 70 mm[Hg] MEDGEN pressure ([facility]) Systolic blood 100 mm[Hg] 100 mm[Hg] MEDGEN pressure ([facility]) Body weight 183 lb 183 lb MEDGEN ([facility]) Body height 66 in 66 in MEDGEN ([facility]) Heart rate 80 /min 80 /min MEDGEN ([facility]) Respiratory rate 16 /min 16 /min MEDGEN ([facility]) Body mass index 30.2 kg/m2 30.2 kg/m2 MEDGEN (BMI) [Ratio] ([facility]) Diastolic blood 80 mm[Hg] 80 mm[Hg] MEDGEN pressure ([facility]) Systolic blood 120 mm[Hg] 120 mm[Hg] MEDGEN pressure ([facility]) Body weight 187 lb 187 lb MEDGEN ([facility]) Body height 66 in 66 in MEDGEN ([facility]) Heart rate 80 /min 80 /min MEDGEN ([facility]) Respiratory rate 16 /min 16 /min MEDGEN ([facility]) Body mass index 30.2 kg/m2 30.2 kg/m2 MEDGEN (BMI) [Ratio] ([facility]) Diastolic blood 80 mm[Hg] 80 mm[Hg] MEDGEN pressure ([facility]) Systolic blood 120 mm[Hg] 120 mm[Hg] MEDGEN pressure ([facility]) Body weight 187 lb 187 lb MEDGEN ([facility]) Body height 66 in 66 in MEDGEN ([facility]) Heart rate 80 /min 80 /min MEDGEN ([facility]) Respiratory rate 16 /min 16 /min MEDGEN ([facility]) Body mass index 30.2 kg/m2 30.2 kg/m2 MEDGEN (BMI) [Ratio] ([facility]) Diastolic blood 80 mm[Hg] 80 mm[Hg] MEDGEN pressure ([facility]) Systolic blood 120 mm[Hg] 120 mm[Hg] MEDGEN pressure ([facility]) Body weight 187 lb 187 lb MEDGEN ([facility]) Body height 66 in 66 in MEDGEN ([facility]) Heart rate 80 /min 80 /min MEDGEN ([facility]) Respiratory rate 16 /min 16 /min MEDGEN ([facility]) Body mass index 30.2 kg/m2 30.2 kg/m2 MEDGEN (BMI) [Ratio] ([facility]) Diastolic blood 80 mm[Hg] 80 mm[Hg] MEDGEN pressure ([facility]) Systolic blood 120 mm[Hg] 120 mm[Hg] MEDGEN pressure ([facility]) Body weight 187 lb 187 lb MEDGEN ([facility]) Body height 66 in 66 in MEDGEN ([facility]) Heart rate 80 /min 80 /min MEDGEN ([facility]) Respiratory rate 16 /min 16 /min MEDGEN ([facility]) Body mass index 30.2 kg/m2 30.2 kg/m2 MEDGEN (BMI) [Ratio] ([facility]) Diastolic blood 80 mm[Hg] 80 mm[Hg] MEDGEN pressure ([facility]) Systolic blood 120 mm[Hg] 120 mm[Hg] MEDGEN pressure ([facility]) Body weight 187 lb 187 lb MEDGEN ([facility]) Body height 66 in 66 in MEDGEN ([facility]) Systolic blood 120 mm[Hg] 120 mm[Hg] MEDGEN pressure ([facility]) Body weight 187 lb 187 lb MEDGEN ([facility]) Body height 66 in 66 in MEDGEN ([facility]) Heart rate 80 /min 80 /min MEDGEN ([facility]) Respiratory rate 16 /min 16 /min MEDGEN ([facility]) Body mass index 30.2 kg/m2 30.2 kg/m2 MEDGEN (BMI) [Ratio] ([facility]) Diastolic blood 80 mm[Hg] 80 mm[Hg] MEDGEN pressure ([facility]) Heart rate 80 /min 80 /min MEDGEN ([facility]) Respiratory rate 16 /min 16 /min MEDGEN ([facility]) Body mass index 30.2 kg/m2 30.2 kg/m2 MEDGEN (BMI) [Ratio] ([facility]) Diastolic blood 80 mm[Hg] 80 mm[Hg] MEDGEN pressure ([facility]) Systolic blood 120 mm[Hg] 120 mm[Hg] MEDGEN pressure ([facility]) Body weight 187 lb 187 lb MEDGEN ([facility]) Body height 66 in 66 in MEDGEN ([facility]) Heart rate 80 /min 80 /min MEDGEN ([facility]) Respiratory rate 16 /min 16 /min MEDGEN ([facility]) Body mass index 30.2 kg/m2 30.2 kg/m2 MEDGEN (BMI) [Ratio] ([facility]) Diastolic blood 80 mm[Hg] 80 mm[Hg] MEDGEN pressure ([facility]) Systolic blood 120 mm[Hg] 120 mm[Hg] MEDGEN pressure ([facility]) Body weight 187 lb 187 lb MEDGEN ([facility]) Body height 66 in 66 in MEDGEN ([facility]) Heart rate 80 /min 80 /min MEDGEN ([facility]) Respiratory rate 16 /min 16 /min MEDGEN ([facility]) Body mass index 30.2 kg/m2 30.2 kg/m2 MEDGEN (BMI) [Ratio] ([facility]) Diastolic blood 80 mm[Hg] 80 mm[Hg] MEDGEN pressure ([facility]) Systolic blood 120 mm[Hg] 120 mm[Hg] MEDGEN pressure ([facility]) Body weight 187 lb 187 lb MEDGEN ([facility]) Body height 66 in 66 in MEDGEN ([facility]) Heart rate 80 /min 80 /min MEDGEN ([facility]) Respiratory rate 16 /min 16 /min MEDGEN ([facility]) Body mass index 30.2 kg/m2 30.2 kg/m2 MEDGEN (BMI) [Ratio] ([facility]) Diastolic blood 80 mm[Hg] 80 mm[Hg] MEDGEN pressure ([facility]) Systolic blood 120 mm[Hg] 120 mm[Hg] MEDGEN pressure ([facility]) Body weight 187 lb 187 lb MEDGEN ([facility]) Body height 66 in 66 in MEDGEN ([facility]) Heart rate 80 /min 80 /min MEDGEN ([facility]) Respiratory rate 16 /min 16 /min MEDGEN ([facility]) Body mass index 28.7 kg/m2 28.7 kg/m2 MEDGEN (BMI) [Ratio] ([facility]) Diastolic blood 80 mm[Hg] 80 mm[Hg] MEDGEN pressure ([facility]) Systolic blood 140 mm[Hg] 140 mm[Hg] MEDGEN pressure ([facility]) Body weight 178 lb 178 lb MEDGEN ([facility]) Body height 66 in 66 in MEDGEN ([facility]) Diastolic blood 80 mm[Hg] 80 mm[Hg] [facility] pressure [facility] [facility]) Systolic blood 140 mm[Hg] 140 mm[Hg] MEDGEN pressure ([facility]) Body weight 178 lb 178 lb MEDGEN ([facility]) Body height 66 in 66 in MEDGEN ([facility]) Heart rate 80 /min 80 /min MEDGEN ([facility]) Respiratory rate 16 /min 16 /min MEDGEN ([facility]) Body mass index 28.7 kg/m2 28.7 kg/m2 MEDGEN (BMI) [Ratio] ([facility]) Heart rate 80 /min 80 /min MEDGEN ([facility]) Respiratory rate 16 /min 16 /min MEDGEN ([facility]) Body mass index 28.7 kg/m2 28.7 kg/m2 MEDGEN (BMI) [Ratio] ([facility]) Diastolic blood 80 mm[Hg] 80 mm[Hg] MEDGEN pressure ([facility]) Systolic blood 140 mm[Hg] 140 mm[Hg] MEDGEN pressure ([facility]) Body weight 178 lb 178 lb MEDGEN ([facility]) Body height 66 in 66 in MEDGEN ([facility]) Heart rate 80 /min 80 /min MEDGEN ([facility]) Respiratory rate 16 /min 16 /min MEDGEN ([facility]) Body mass index 28.7 kg/m2 28.7 kg/m2 MEDGEN (BMI) [Ratio] ([facility]) Diastolic blood 80 mm[Hg] 80 mm[Hg] MEDGEN pressure ([facility]) Systolic blood 140 mm[Hg] 140 mm[Hg] MEDGEN pressure ([facility]) Body weight 178 lb 178 lb MEDGEN ([facility]) Body height 66 in 66 in MEDGEN ([facility]) Heart rate 80 /min 80 /min MEDGEN ([facility]) Respiratory rate 16 /min 16 /min MEDGEN ([facility]) Body mass index 28.7 kg/m2 28.7 kg/m2 MEDGEN (BMI) [Ratio] ([facility]) Diastolic blood 80 mm[Hg] 80 mm[Hg] MEDGEN pressure ([facility]) Systolic blood 140 mm[Hg] 140 mm[Hg] MEDGEN pressure ([facility]) Body weight 178 lb 178 lb MEDGEN ([facility]) Body height 66 in 66 in MEDGEN ([facility]) Heart rate 80 /min 80 /min MEDGEN ([facility]) Respiratory rate 16 /min 16 /min MEDGEN ([facility]) Body mass index 28.7 kg/m2 28.7 kg/m2 MEDGEN (BMI) [Ratio] ([facility]) Diastolic blood 80 mm[Hg] 80 mm[Hg] MEDGEN pressure ([facility]) Systolic blood 140 mm[Hg] 140 mm[Hg] MEDGEN pressure ([facility]) Body weight 178 lb 178 lb MEDGEN ([facility]) Body height 66 in 66 in MEDGEN ([facility]) Heart rate 80 /min 80 /min MEDGEN ([facility]) Respiratory rate 16 /min 16 /min MEDGEN ([facility]) Body mass index 28.7 kg/m2 28.7 kg/m2 MEDGEN (BMI) [Ratio] ([facility]) Diastolic blood 80 mm[Hg] 80 mm[Hg] MEDGEN pressure ([facility]) Systolic blood 140 mm[Hg] 140 mm[Hg] MEDGEN pressure ([facility]) Body weight 178 lb 178 lb MEDGEN ([facility]) Body height 66 in 66 in MEDGEN ([facility]) Heart rate 80 /min 80 /min MEDGEN ([facility]) Respiratory rate 16 /min 16 /min MEDGEN ([facility]) Body mass index 28.7 kg/m2 28.7 kg/m2 MEDGEN (BMI) [Ratio] ([facility]) Diastolic blood 80 mm[Hg] 80 mm[Hg] MEDGEN pressure ([facility]) Systolic blood 140 mm[Hg] 140 mm[Hg] MEDGEN pressure ([facility]) Body weight 178 lb 178 lb MEDGEN ([facility]) Body height 66 in 66 in MEDGEN ([facility]) Heart rate 80 /min 80 /min MEDGEN ([facility]) Respiratory rate 16 /min 16 /min MEDGEN ([facility]) Body mass index 28.7 kg/m2 28.7 kg/m2 MEDGEN (BMI) [Ratio] ([facility]) Diastolic blood 80 mm[Hg] 80 mm[Hg] MEDGEN pressure ([facility]) Systolic blood 140 mm[Hg] 140 mm[Hg] MEDGEN pressure ([facility]) Body weight 178 lb 178 lb MEDGEN ([facility]) Body height 66 in 66 in MEDGEN ([facility]) Heart rate 80 /min 80 /min MEDGEN ([facility]) Respiratory rate 16 /min 16 /min MEDGEN ([facility]) Body mass index 28.7 kg/m2 28.7 kg/m2 MEDGEN (BMI) [Ratio] ([facility]) Diastolic blood 80 mm[Hg] 80 mm[Hg] MEDGEN pressure ([facility]) Systolic blood 140 mm[Hg] 140 mm[Hg] MEDGEN pressure ([facility]) Body weight 178 lb 178 lb MEDGEN ([facility]) Body height 66 in 66 in MEDGEN ([facility]) Heart rate 80 /min 80 /min MEDGEN ([facility]) Respiratory rate 16 /min 16 /min MEDGEN ([facility]) Body mass index 28.7 kg/m2 28.7 kg/m2 MEDGEN (BMI) [Ratio] ([facility]) Diastolic blood 80 mm[Hg] 80 mm[Hg] MEDGEN pressure ([facility]) Systolic blood 120 mm[Hg] 120 mm[Hg] MEDGEN pressure ([facility]) Body weight 178 lb 178 lb MEDGEN ([facility]) Body height 66 in 66 in MEDGEN ([facility]) Heart rate 80 /min 80 /min MEDGEN ([facility]) Respiratory rate 16 /min 16 /min MEDGEN ([facility]) Body mass index 28.7 kg/m2 28.7 kg/m2 MEDGEN (BMI) [Ratio] ([facility]) Diastolic blood 80 mm[Hg] 80 mm[Hg] MEDGEN pressure ([facility]) Systolic blood 120 mm[Hg] 120 mm[Hg] MEDGEN pressure ([facility]) Body weight 178 lb 178 lb MEDGEN ([facility]) Body height 66 in 66 in MEDGEN ([facility]) Heart rate 80 /min 80 /min MEDGEN ([facility]) Respiratory rate 16 /min 16 /min MEDGEN ([facility]) Body mass index 28.7 kg/m2 28.7 kg/m2 MEDGEN (BMI) [Ratio] ([facility]) Diastolic blood 80 mm[Hg] 80 mm[Hg] MEDGEN pressure ([facility]) Systolic blood 120 mm[Hg] 120 mm[Hg] MEDGEN pressure ([facility]) Body weight 178 lb 178 lb MEDGEN ([facility]) Body height 66 in 66 in MEDGEN ([facility]) Respiratory rate 16 /min 16 /min MEDGEN ([facility]) Body mass index 28.7 kg/m2 28.7 kg/m2 MEDGEN (BMI) [Ratio] ([facility]) Diastolic blood 80 mm[Hg] 80 mm[Hg] MEDGEN pressure ([facility]) Systolic blood 120 mm[Hg] 120 mm[Hg] MEDGEN pressure ([facility]) Body weight 178 lb 178 lb MEDGEN ([facility]) Body height 66 in 66 in MEDGEN ([facility]) Heart rate 80 /min 80 /min MEDGEN ([facility]) Heart rate 80 /min 80 /min MEDGEN ([facility]) Respiratory rate 16 /min 16 /min MEDGEN ([facility]) Body mass index 28.7 kg/m2 28.7 kg/m2 MEDGEN (BMI) [Ratio] ([facility]) Diastolic blood 80 mm[Hg] 80 mm[Hg] MEDGEN pressure ([facility]) Systolic blood 120 mm[Hg] 120 mm[Hg] MEDGEN pressure ([facility]) Body weight 178 lb 178 lb MEDGEN ([facility]) Body height 66 in 66 in MEDGEN ([facility]) Heart rate 80 /min 80 /min MEDGEN ([facility]) Respiratory rate 16 /min 16 /min MEDGEN ([facility]) Body mass index 28.7 kg/m2 28.7 kg/m2 MEDGEN (BMI) [Ratio] ([facility]) Diastolic blood 60 mm[Hg] 60 mm[Hg] MEDGEN pressure ([facility]) Systolic blood 100 mm[Hg] 100 mm[Hg] MEDGEN pressure ([facility]) Body weight 178 lb 178 lb MEDGEN ([facility]) Body height 66 in 66 in MEDGEN ([facility]) Heart rate 80 /min 80 /min MEDGEN ([facility]) Respiratory rate 16 /min 16 /min MEDGEN ([facility]) Body mass index 28.7 kg/m2 28.7 kg/m2 MEDGEN (BMI) [Ratio] ([facility]) Diastolic blood 60 mm[Hg] 60 mm[Hg] MEDGEN pressure ([facility]) Systolic blood 100 mm[Hg] 100 mm[Hg] MEDGEN pressure ([facility]) Body weight 178 lb 178 lb MEDGEN ([facility]) Body height 66 in 66 in MEDGEN ([facility]) Heart rate 80 /min 80 /min MEDGEN ([facility]) Respiratory rate 16 /min 16 /min MEDGEN ([facility]) Body mass index 28.7 kg/m2 28.7 kg/m2 MEDGEN (BMI) [Ratio] ([facility]) Diastolic blood 60 mm[Hg] 60 mm[Hg] MEDGEN pressure ([facility]) Systolic blood 100 mm[Hg] 100 mm[Hg] MEDGEN pressure ([facility]) Body weight 178 lb 178 lb MEDGEN ([facility]) Body height 66 in 66 in MEDGEN ([facility]) Heart rate 80 /min 80 /min MEDGEN ([facility]) Respiratory rate 16 /min 16 /min MEDGEN ([facility]) Body mass index 28.7 kg/m2 28.7 kg/m2 MEDGEN (BMI) [Ratio] ([facility]) Diastolic blood 60 mm[Hg] 60 mm[Hg] MEDGEN pressure ([facility]) Systolic blood 100 mm[Hg] 100 mm[Hg] MEDGEN pressure ([facility]) Body weight 178 lb 178 lb MEDGEN ([facility]) Body height 66 in 66 in MEDGEN ([facility]) Heart rate 80 /min 80 /min MEDGEN ([facility]) Respiratory rate 16 /min 16 /min MEDGEN ([facility]) Body mass index 28.7 kg/m2 28.7 kg/m2 MEDGEN (BMI) [Ratio] ([facility]) Diastolic blood 60 mm[Hg] 60 mm[Hg] MEDGEN pressure ([facility]) Systolic blood 100 mm[Hg] 100 mm[Hg] MEDGEN pressure ([facility]) Body weight 178 lb 178 lb MEDGEN ([facility]) Body height 66 in 66 in MEDGEN ([facility]) Heart rate 80 /min 80 /min MEDGEN ([facility]) Respiratory rate 16 /min 16 /min MEDGEN ([facility]) Body mass index 28.7 kg/m2 28.7 kg/m2 MEDGEN (BMI) [Ratio] ([facility]) Diastolic blood 70 mm[Hg] 70 mm[Hg] MEDGEN pressure ([facility]) Systolic blood 122 mm[Hg] 122 mm[Hg] MEDGEN pressure ([facility]) Body weight 178 lb 178 lb MEDGEN ([facility]) Body height 66 in 66 in MEDGEN ([facility]) Heart rate 80 /min 80 /min MEDGEN ([facility]) Respiratory rate 16 /min 16 /min MEDGEN ([facility]) Body mass index 28.7 kg/m2 28.7 kg/m2 MEDGEN (BMI) [Ratio] ([facility]) Diastolic blood 70 mm[Hg] 70 mm[Hg] MEDGEN pressure ([facility]) Systolic blood 122 mm[Hg] 122 mm[Hg] MEDGEN pressure ([facility]) Body weight 178 lb 178 lb MEDGEN ([facility]) Body height 66 in 66 in MEDGEN ([facility]) Heart rate 80 /min 80 /min MEDGEN ([facility]) Respiratory rate 16 /min 16 /min MEDGEN ([facility]) Body mass index 28.7 kg/m2 28.7 kg/m2 MEDGEN (BMI) [Ratio] ([facility]) Diastolic blood 70 mm[Hg] 70 mm[Hg] MEDGEN pressure ([facility]) Systolic blood 122 mm[Hg] 122 mm[Hg] MEDGEN pressure ([facility]) Body weight 178 lb 178 lb MEDGEN ([facility]) Body height 66 in 66 in MEDGEN ([facility]) Heart rate 80 /min 80 /min MEDGEN ([facility]) Respiratory rate 16 /min 16 /min MEDGEN ([facility]) Body mass index 28.7 kg/m2 28.7 kg/m2 MEDGEN (BMI) [Ratio] ([facility]) Diastolic blood 70 mm[Hg] 70 mm[Hg] MEDGEN pressure ([facility]) Systolic blood 122 mm[Hg] 122 mm[Hg] MEDGEN pressure ([facility]) Body weight 178 lb 178 lb MEDGEN ([facility]) Body height 66 in 66 in MEDGEN ([facility]) Heart rate 80 /min 80 /min MEDGEN ([facility]) Respiratory rate 16 /min 16 /min MEDGEN ([facility]) Body mass index 28.7 kg/m2 28.7 kg/m2 MEDGEN (BMI) [Ratio] ([facility]) Diastolic blood 70 mm[Hg] 70 mm[Hg] MEDGEN pressure ([facility]) Systolic blood 122 mm[Hg] 122 mm[Hg] MEDGEN pressure ([facility]) Body weight 178 lb 178 lb MEDGEN ([facility]) Body height 66 in 66 in MEDGEN ([facility]) Heart rate 80 /min 80 /min MEDGEN ([facility]) Respiratory rate 16 /min 16 /min MEDGEN ([facility]) Body mass index 28.7 kg/m2 28.7 kg/m2 MEDGEN (BMI) [Ratio] ([facility]) Diastolic blood 80 mm[Hg] 80 mm[Hg] MEDGEN pressure ([facility]) Systolic blood 120 mm[Hg] 120 mm[Hg] MEDGEN pressure ([facility]) Body weight 178 lb 178 lb MEDGEN ([facility]) Body height 66 in 66 in MEDGEN ([facility]) Heart rate 80 /min 80 /min MEDGEN ([facility]) Respiratory rate 16 /min 16 /min MEDGEN ([facility]) Body mass index 28.7 kg/m2 28.7 kg/m2 MEDGEN (BMI) [Ratio] ([facility]) Diastolic blood 80 mm[Hg] 80 mm[Hg] MEDGEN pressure ([facility]) Systolic blood 120 mm[Hg] 120 mm[Hg] MEDGEN pressure ([facility]) Body weight 178 lb 178 lb MEDGEN ([facility]) Body height 66 in 66 in MEDGEN ([facility]) Heart rate 80 /min 80 /min MEDGEN ([facility]) Respiratory rate 16 /min 16 /min MEDGEN ([facility]) Body mass index 28.7 kg/m2 28.7 kg/m2 MEDGEN (BMI) [Ratio] ([facility]) Diastolic blood 80 mm[Hg] 80 mm[Hg] MEDGEN pressure ([facility]) Systolic blood 120 mm[Hg] 120 mm[Hg] MEDGEN pressure ([facility]) Body weight 178 lb 178 lb MEDGEN ([facility]) Body height 66 in 66 in MEDGEN ([facility]) Heart rate 80 /min 80 /min MEDGEN ([facility]) Respiratory rate 16 /min 16 /min MEDGEN ([facility]) Body mass index 28.7 kg/m2 28.7 kg/m2 MEDGEN (BMI) [Ratio] ([facility]) Diastolic blood 80 mm[Hg] 80 mm[Hg] MEDGEN pressure ([facility]) Systolic blood 120 mm[Hg] 120 mm[Hg] MEDGEN pressure ([facility]) Body weight 178 lb 178 lb MEDGEN ([facility]) Body height 66 in 66 in MEDGEN ([facility]) Heart rate 80 /min 80 /min MEDGEN ([facility]) Respiratory rate 16 /min 16 /min MEDGEN ([facility]) Body mass index 28.7 kg/m2 28.7 kg/m2 MEDGEN (BMI) [Ratio] ([facility]) Diastolic blood 80 mm[Hg] 80 mm[Hg] MEDGEN pressure ([facility]) Systolic blood 120 mm[Hg] 120 mm[Hg] MEDGEN pressure ([facility]) Body weight 178 lb 178 lb MEDGEN ([facility]) Body height 66 in 66 in MEDGEN ([facility]) Heart rate 80 /min 80 /min MEDGEN ([facility]) Respiratory rate 16 /min 16 /min MEDGEN ([facility]) Body mass index 29.4 kg/m2 29.4 kg/m2 MEDGEN (BMI) [Ratio] ([facility]) Body weight 182 lb 182 lb MEDGEN ([facility]) Body height 66 in 66 in MEDGEN ([facility]) Heart rate 80 /min 80 /min MEDGEN ([facility]) Respiratory rate 16 /min 16 /min MEDGEN ([facility]) Body mass index 29.4 kg/m2 29.4 kg/m2 MEDGEN (BMI) [Ratio] ([facility]) Body weight 182 lb 182 lb MEDGEN ([facility]) Body height 66 in 66 in MEDGEN ([facility]) Heart rate 80 /min 80 /min MEDGEN ([facility]) Respiratory rate 16 /min 16 /min MEDGEN ([facility]) Body mass index 29.4 kg/m2 29.4 kg/m2 MEDGEN (BMI) [Ratio] ([facility]) Body weight 182 lb 182 lb MEDGEN ([facility]) Body height 66 in 66 in MEDGEN ([facility]) Heart rate 80 /min 80 /min MEDGEN ([facility]) Respiratory rate 16 /min 16 /min MEDGEN ([facility]) Body mass index 29.4 kg/m2 29.4 kg/m2 MEDGEN (BMI) [Ratio] ([facility]) Body weight 182 lb 182 lb MEDGEN ([facility]) Body height 66 in 66 in MEDGEN ([facility]) Heart rate 80 /min 80 /min MEDGEN ([facility]) Respiratory rate 16 /min 16 /min MEDGEN ([facility]) Body mass index 29.4 kg/m2 29.4 kg/m2 MEDGEN (BMI) [Ratio] ([facility]) Body weight 182 lb 182 lb MEDGEN ([facility]) Body height 66 in 66 in MEDGEN ([facility]) Heart rate 80 /min 80 /min MEDGEN ([facility]) Respiratory rate 16 /min 16 /min MEDGEN ([facility]) Body mass index 29.4 kg/m2 29.4 kg/m2 MEDGEN (BMI) [Ratio] ([facility]) Diastolic blood 80 mm[Hg] 80 mm[Hg] MEDGEN pressure ([facility]) Systolic blood 120 mm[Hg] 120 mm[Hg] MEDGEN pressure ([facility]) Body weight 182 lb 182 lb MEDGEN ([facility]) Body height 66 in 66 in MEDGEN ([facility]) Heart rate 80 /min 80 /min MEDGEN ([facility]) Respiratory rate 16 /min 16 /min MEDGEN ([facility]) Body mass index 29.4 kg/m2 29.4 kg/m2 MEDGEN (BMI) [Ratio] ([facility]) Diastolic blood 80 mm[Hg] 80 mm[Hg] MEDGEN pressure ([facility]) Systolic blood 120 mm[Hg] 120 mm[Hg] MEDGEN pressure ([facility]) Body weight 182 lb 182 lb MEDGEN ([facility]) Body height 66 in 66 in MEDGEN ([facility]) Heart rate 80 /min 80 /min MEDGEN ([facility]) Respiratory rate 16 /min 16 /min MEDGEN ([facility]) Body mass index 29.4 kg/m2 29.4 kg/m2 MEDGEN (BMI) [Ratio] ([facility]) Diastolic blood 80 mm[Hg] 80 mm[Hg] MEDGEN pressure ([facility]) Systolic blood 120 mm[Hg] 120 mm[Hg] MEDGEN pressure ([facility]) Body weight 182 lb 182 lb MEDGEN ([facility]) Body height 66 in 66 in MEDGEN ([facility]) Heart rate 80 /min 80 /min MEDGEN ([facility]) Respiratory rate 16 /min 16 /min MEDGEN ([facility]) Body mass index 29.4 kg/m2 29.4 kg/m2 MEDGEN (BMI) [Ratio] ([facility]) Diastolic blood 80 mm[Hg] 80 mm[Hg] MEDGEN pressure ([facility]) Systolic blood 120 mm[Hg] 120 mm[Hg] MEDGEN pressure ([facility]) Body weight 182 lb 182 lb MEDGEN ([facility]) Body height 66 in 66 in MEDGEN ([facility]) Heart rate 80 /min 80 /min MEDGEN ([facility]) Respiratory rate 16 /min 16 /min MEDGEN ([facility]) Body mass index 29.4 kg/m2 29.4 kg/m2 MEDGEN (BMI) [Ratio] ([facility]) Diastolic blood 80 mm[Hg] 80 mm[Hg] MEDGEN pressure ([facility]) Systolic blood 120 mm[Hg] 120 mm[Hg] MEDGEN pressure ([facility]) Body weight 182 lb 182 lb MEDGEN ([facility]) Body height 66 in 66 in MEDGEN ([facility]) Heart rate 80 /min 80 /min MEDGEN ([facility]) Respiratory rate 16 /min 16 /min MEDGEN ([facility]) Body mass index 30 kg/m2 30 kg/m2 MEDGEN (BMI) [Ratio] ([facility]) Diastolic blood 70 mm[Hg] 70 mm[Hg] MEDGEN pressure ([facility]) Systolic blood 110 mm[Hg] 110 mm[Hg] MEDGEN pressure ([facility]) Body weight 186 lb 186 lb MEDGEN ([facility]) Body height 66 in 66 in MEDGEN ([facility]) Heart rate 80 /min 80 /min MEDGEN ([facility]) Respiratory rate 16 /min 16 /min MEDGEN ([facility]) Body mass index 30 kg/m2 30 kg/m2 MEDGEN (BMI) [Ratio] ([facility]) Diastolic blood 70 mm[Hg] 70 mm[Hg] MEDGEN pressure ([facility]) Systolic blood 110 mm[Hg] 110 mm[Hg] MEDGEN pressure ([facility]) Body weight 186 lb 186 lb MEDGEN ([facility]) Body height 66 in 66 in MEDGEN ([facility]) Heart rate 80 /min 80 /min MEDGEN ([facility]) Respiratory rate 16 /min 16 /min MEDGEN ([facility]) Body mass index 30 kg/m2 30 kg/m2 MEDGEN (BMI) [Ratio] ([facility]) Diastolic blood 70 mm[Hg] 70 mm[Hg] MEDGEN pressure ([facility]) Systolic blood 110 mm[Hg] 110 mm[Hg] MEDGEN pressure ([facility]) Body weight 186 lb 186 lb MEDGEN ([facility]) Body height 66 in 66 in MEDGEN ([facility]) Heart rate 80 /min 80 /min MEDGEN ([facility]) Respiratory rate 16 /min 16 /min MEDGEN ([facility]) Body mass index 30 kg/m2 30 kg/m2 MEDGEN (BMI) [Ratio] ([facility]) Diastolic blood 70 mm[Hg] 70 mm[Hg] MEDGEN pressure ([facility]) Systolic blood 110 mm[Hg] 110 mm[Hg] MEDGEN pressure ([facility]) Body weight 186 lb 186 lb MEDGEN ([facility]) Body height 66 in 66 in MEDGEN ([facility]) Heart rate 80 /min 80 /min MEDGEN ([facility]) Respiratory rate 16 /min 16 /min MEDGEN ([facility]) Body mass index 30 kg/m2 30 kg/m2 MEDGEN (BMI) [Ratio] ([facility]) Diastolic blood 70 mm[Hg] 70 mm[Hg] MEDGEN pressure ([facility]) Systolic blood 110 mm[Hg] 110 mm[Hg] MEDGEN pressure ([facility]) Body weight 186 lb 186 lb MEDGEN ([facility]) Body height 66 in 66 in MEDGEN ([facility]) Heart rate 80 /min 80 /min MEDGEN ([facility]) Respiratory rate 20 /min 20 /min MEDGEN ([facility]) Body mass index 28.6 kg/m2 28.6 kg/m2 MEDGEN (BMI) [Ratio] ([facility]) Diastolic blood 90 mm[Hg] 90 mm[Hg] MEDGEN pressure ([facility]) Systolic blood 140 mm[Hg] 140 mm[Hg] MEDGEN pressure ([facility]) Body weight 177 lb 177 lb MEDGEN ([facility]) Body height 66 in 66 in MEDGEN ([facility]) Heart rate 80 /min 80 /min MEDGEN ([facility]) Respiratory rate 20 /min 20 /min MEDGEN ([facility]) Body mass index 28.6 kg/m2 28.6 kg/m2 MEDGEN (BMI) [Ratio] ([facility]) Diastolic blood 90 mm[Hg] 90 mm[Hg] MEDGEN pressure ([facility]) Systolic blood 140 mm[Hg] 140 mm[Hg] MEDGEN pressure ([facility]) Body weight 177 lb 177 lb MEDGEN ([facility]) Body height 66 in 66 in MEDGEN ([facility] Heart rate 80 /min 80 /min MEDGEN ([facility]) Respiratory rate 20 /min 20 /min MEDGEN ([facility]) Body mass index 28.6 kg/m2 28.6 kg/m2 MEDGEN (BMI) [Ratio] ([facility]) Diastolic blood 90 mm[Hg] 90 mm[Hg] MEDGEN pressure ([facility]) Systolic blood 140 mm[Hg] 140 mm[Hg] MEDGEN pressure ([facility]) Body weight 177 lb 177 lb MEDGEN ([facility]) Body height 66 in 66 in MEDGEN ([facility]) Heart rate 80 /min 80 /min MEDGEN ([facility]) Respiratory rate 20 /min 20 /min MEDGEN ([facility]) Body mass index 28.6 kg/m2 28.6 kg/m2 MEDGEN (BMI) [Ratio] ([facility]) Diastolic blood 90 mm[Hg] 90 mm[Hg] MEDGEN pressure ([facility]) Systolic blood 140 mm[Hg] 140 mm[Hg] MEDGEN pressure ([facility]) Body weight 177 lb 177 lb MEDGEN ([facility]) Body height 66 in 66 in MEDGEN ([facility]) Heart rate 80 /min 80 /min MEDGEN ([facility]) Respiratory rate 20 /min 20 /min MEDGEN ([facility]) Body mass index 28.6 kg/m2 28.6 kg/m2 MEDGEN (BMI) [Ratio] ([facility]) Diastolic blood 90 mm[Hg] 90 mm[Hg] MEDGEN pressure ([facility]) Systolic blood 140 mm[Hg] 140 mm[Hg] MEDGEN pressure ([facility]) Body weight 177 lb 177 lb MEDGEN ([facility]) Body height 66 in 66 in MEDGEN ([facility]) Heart rate 80 /min 80 /min MEDGEN ([facility]) Respiratory rate 20 /min 20 /min MEDGEN ([facility]) Body mass index 30.2 kg/m2 30.2 kg/m2 MEDGEN (BMI) [Ratio] ([facility]) Diastolic blood 80 mm[Hg] 80 mm[Hg] MEDGEN pressure ([facility]) Systolic blood 134 mm[Hg] 134 mm[Hg] MEDGEN pressure ([facility]) Body weight 187 lb 187 lb MEDGEN ([facility]) Body height 66 in 66 in MEDGEN ([facility] Heart rate 80 /min 80 /min MEDGEN ([facility]) Respiratory rate 20 /min 20 /min MEDGEN ([facility]) Body mass index 30.2 kg/m2 30.2 kg/m2 MEDGEN (BMI) [Ratio] ([facility]) Diastolic blood 80 mm[Hg] 80 mm[Hg] MEDGEN pressure ([facility]) Systolic blood 134 mm[Hg] 134 mm[Hg] MEDGEN pressure ([facility]) Body weight 187 lb 187 lb MEDGEN ([facility]) Body height 66 in 66 in MEDGEN ([facility]) Heart rate 80 /min 80 /min MEDGEN ([facility]) Respiratory rate 20 /min 20 /min MEDGEN ([facility]) Body mass index 30.2 kg/m2 30.2 kg/m2 MEDGEN (BMI) [Ratio] ([facility]) Diastolic blood 80 mm[Hg] 80 mm[Hg] MEDGEN pressure ([facility]) Systolic blood 134 mm[Hg] 134 mm[Hg] MEDGEN pressure ([facility]) Body weight 187 lb 187 lb MEDGEN ([facility]) Body height 66 in 66 in MEDGEN ([facility]) Heart rate 80 /min 80 /min MEDGEN ([facility]) Respiratory rate 20 /min 20 /min MEDGEN ([facility]) Body mass index 30.2 kg/m2 30.2 kg/m2 MEDGEN (BMI) [Ratio] ([facility]) Diastolic blood 80 mm[Hg] 80 mm[Hg] MEDGEN pressure ([facility]) Systolic blood 134 mm[Hg] 134 mm[Hg] MEDGEN pressure ([facility]) Body weight 187 lb 187 lb MEDGEN ([facility]) Body height 66 in 66 in MEDGEN ([facility]) Heart rate 80 /min 80 /min MEDGEN ([facility]) Respiratory rate 20 /min 20 /min MEDGEN ([facility]) Body mass index 30.2 kg/m2 30.2 kg/m2 MEDGEN (BMI) [Ratio] ([facility]) Diastolic blood 80 mm[Hg] 80 mm[Hg] MEDGEN pressure ([facility]) Systolic blood 134 mm[Hg] 134 mm[Hg] MEDGEN pressure ([facility]) Body weight 187 lb 187 lb MEDGEN ([facility]) Body height 66 in 66 in MEDGEN ([facility]) Heart rate 84 /min 84 /min MEDGEN ([facility]) Respiratory rate 20 /min 20 /min MEDGEN ([facility]) Body mass index 30 kg/m2 30 kg/m2 MEDGEN (BMI) [Ratio] ([facility]) Diastolic blood 82 mm[Hg] 82 mm[Hg] MEDGEN pressure ([facility]) Systolic blood 126 mm[Hg] 126 mm[Hg] MEDGEN pressure ([facility]) Body weight 186 lb 186 lb MEDGEN ([facility]) Body height 66 in 66 in MEDGEN ([facility]) Heart rate 84 /min 84 /min MEDGEN ([facility]) Respiratory rate 20 /min 20 /min MEDGEN ([facility]) Body mass index 30 kg/m2 30 kg/m2 MEDGEN (BMI) [Ratio] ([facility]) Diastolic blood 82 mm[Hg] 82 mm[Hg] MEDGEN pressure ([facility]) Systolic blood 126 mm[Hg] 126 mm[Hg] MEDGEN pressure ([facility]) Body weight 186 lb 186 lb MEDGEN ([facility]) Body height 66 in 66 in MEDGEN ([facility] Heart rate 84 /min 84 /min MEDGEN ([facility]) Respiratory rate 20 /min 20 /min MEDGEN ([facility]) Body mass index 30 kg/m2 30 kg/m2 MEDGEN (BMI) [Ratio] ([facility]) Diastolic blood 82 mm[Hg] 82 mm[Hg] MEDGEN pressure ([facility]) Systolic blood 126 mm[Hg] 126 mm[Hg] MEDGEN pressure ([facility]) Body weight 186 lb 186 lb MEDGEN ([facility]) Body height 66 in 66 in MEDGEN ([facility]) Heart rate 84 /min 84 /min MEDGEN ([facility]) Respiratory rate 20 /min 20 /min MEDGEN ([facility]) Body mass index 30 kg/m2 30 kg/m2 MEDGEN (BMI) [Ratio] ([facility]) Diastolic blood 82 mm[Hg] 82 mm[Hg] MEDGEN pressure ([facility]) Systolic blood 126 mm[Hg] 126 mm[Hg] MEDGEN pressure ([facility]) Body weight 186 lb 186 lb MEDGEN ([facility]) Body height 66 in 66 in MEDGEN ([facility]) Heart rate 84 /min 84 /min MEDGEN ([facility]) Respiratory rate 20 /min 20 /min MEDGEN ([facility]) Body mass index 30 kg/m2 30 kg/m2 MEDGEN (BMI) [Ratio] ([facility]) Diastolic blood 82 mm[Hg] 82 mm[Hg] MEDGEN pressure ([facility]) Systolic blood 126 mm[Hg] 126 mm[Hg] MEDGEN pressure ([facility]) Body weight 186 lb 186 lb MEDGEN ([facility]) Body height 66 in 66 in MEDGEN ([facility]) Heart rate 84 /min 84 /min MEDGEN ([facility]) Respiratory rate 20 /min 20 /min MEDGEN ([facility]) Body mass index 31 kg/m2 31 kg/m2 MEDGEN (BMI) [Ratio] ([facility]) Diastolic blood 82 mm[Hg] 82 mm[Hg] MEDGEN pressure ([facility]) Systolic blood 126 mm[Hg] 126 mm[Hg] MEDGEN pressure ([facility]) Body weight 192 lb 192 lb MEDGEN ([facility]) Body height 66 in 66 in MEDGEN ([facility]) Heart rate 84 /min 84 /min MEDGEN ([facility]) Respiratory rate 20 /min 20 /min MEDGEN ([facility]) Body mass index 31 kg/m2 31 kg/m2 MEDGEN (BMI) [Ratio] ([facility]) Diastolic blood 82 mm[Hg] 82 mm[Hg] MEDGEN pressure ([facility]) Systolic blood 126 mm[Hg] 126 mm[Hg] MEDGEN pressure ([facility]) Body weight 192 lb 192 lb MEDGEN ([facility]) Body height 66 in 66 in MEDGEN ([facility]) Heart rate 84 /min 84 /min MEDGEN ([facility]) Respiratory rate 20 /min 20 /min MEDGEN ([facility]) Body mass index 31 kg/m2 31 kg/m2 MEDGEN (BMI) [Ratio] ([facility]) Diastolic blood 82 mm[Hg] 82 mm[Hg] MEDGEN pressure ([facility]) Systolic blood 126 mm[Hg] 126 mm[Hg] MEDGEN pressure ([facility]) Body weight 192 lb 192 lb MEDGEN ([facility]) Body height 66 in 66 in MEDGEN ([facility]) Heart rate 84 /min 84 /min MEDGEN ([facility]) Respiratory rate 20 /min 20 /min MEDGEN ([facility]) Body mass index 31 kg/m2 31 kg/m2 MEDGEN (BMI) [Ratio] ([facility]) Diastolic blood 82 mm[Hg] 82 mm[Hg] MEDGEN pressure ([facility]) Systolic blood 126 mm[Hg] 126 mm[Hg] MEDGEN pressure ([facility]) Body weight 192 lb 192 lb MEDGEN ([facility]) Body height 66 in 66 in MEDGEN ([facility]) Heart rate 84 /min 84 /min MEDGEN ([facility]) Respiratory rate 20 /min 20 /min MEDGEN ([facility]) Body mass index 31 kg/m2 31 kg/m2 MEDGEN (BMI) [Ratio] ([facility]) Diastolic blood 82 mm[Hg] 82 mm[Hg] MEDGEN pressure ([facility]) Systolic blood 126 mm[Hg] 126 mm[Hg] MEDGEN pressure ([facility]) Body weight 192 lb 192 lb MEDGEN ([facility]) Body height 66 in 66 in MEDGEN ([facility]) Heart rate 84 /min 84 /min MEDGEN ([facility]) Respiratory rate 20 /min 20 /min MEDGEN ([facility]) Body mass index 31 kg/m2 31 kg/m2 MEDGEN (BMI) [Ratio] ([facility]) Diastolic blood 80 mm[Hg] 80 mm[Hg] MEDGEN pressure ([facility]) Systolic blood 136 mm[Hg] 136 mm[Hg] MEDGEN pressure ([facility]) Body weight 192 lb 192 lb MEDGEN ([facility]) Body height 66 in 66 in MEDGEN ([facility]) Heart rate 84 /min 84 /min MEDGEN ([facility]) Respiratory rate 20 /min 20 /min MEDGEN ([facility]) Body mass index 31 kg/m2 31 kg/m2 MEDGEN (BMI) [Ratio] ([facility]) Diastolic blood 80 mm[Hg] 80 mm[Hg] MEDGEN pressure ([facility]) Systolic blood 136 mm[Hg] 136 mm[Hg] MEDGEN pressure ([facility]) Body weight 192 lb 192 lb MEDGEN ([facility]) Body height 66 in 66 in MEDGEN ([facility]) Heart rate 84 /min 84 /min MEDGEN ([facility]) Respiratory rate 20 /min 20 /min MEDGEN ([facility]) Body mass index 31 kg/m2 31 kg/m2 MEDGEN (BMI) [Ratio] ([facility]) Diastolic blood 80 mm[Hg] 80 mm[Hg] MEDGEN pressure ([facility]) Systolic blood 136 mm[Hg] 136 mm[Hg] MEDGEN pressure ([facility]) Body weight 192 lb 192 lb MEDGEN ([facility]) Body height 66 in 66 in MEDGEN ([facility]) Heart rate 84 /min 84 /min MEDGEN ([facility]) Respiratory rate 20 /min 20 /min MEDGEN ([facility]) Body mass index 31 kg/m2 31 kg/m2 MEDGEN (BMI) [Ratio] ([facility]) Diastolic blood 80 mm[Hg] 80 mm[Hg] MEDGEN pressure ([facility]) Systolic blood 136 mm[Hg] 136 mm[Hg] MEDGEN pressure ([facility]) Body weight 192 lb 192 lb MEDGEN ([facility]) Body height 66 in 66 in MEDGEN ([facility]) Heart rate 84 /min 84 /min MEDGEN ([facility]) Respiratory rate 20 /min 20 /min MEDGEN ([facility]) Body mass index 31 kg/m2 31 kg/m2 MEDGEN (BMI) [Ratio] ([facility]) Diastolic blood 80 mm[Hg] 80 mm[Hg] MEDGEN pressure ([facility]) Systolic blood 136 mm[Hg] 136 mm[Hg] MEDGEN pressure ([facility]) Body weight 192 lb 192 lb MEDGEN ([facility]) Body height 66 in 66 in MEDGEN ([facility]) Body mass index 28.4 kg/m2 28.4 kg/m2 MEDGEN (BMI) [Ratio] ([facility]) Diastolic blood 78 mm[Hg] 78 mm[Hg] MEDGEN pressure ([facility]) Systolic blood 136 mm[Hg] 136 mm[Hg] MEDGEN pressure ([facility]) Body weight 192 lb 192 lb MEDGEN ([facility]) Body height 69 in 69 in MEDGEN ([facility]) Body mass index 28.4 kg/m2 28.4 kg/m2 MEDGEN (BMI) [Ratio] ([facility]) Diastolic blood 78 mm[Hg] 78 mm[Hg] MEDGEN pressure ([facility]) Systolic blood 136 mm[Hg] 136 mm[Hg] MEDGEN pressure ([facility]) Body weight 192 lb 192 lb MEDGEN ([facility]) Body height 69 in 69 in MEDGEN ([facility]) Body mass index 28.4 kg/m2 28.4 kg/m2 MEDGEN (BMI) [Ratio] ([facility]) Diastolic blood 78 mm[Hg] 78 mm[Hg] MEDGEN pressure ([facility]) Systolic blood 136 mm[Hg] 136 mm[Hg] MEDGEN pressure ([facility]) Body weight 192 lb 192 lb MEDGEN ([facility]) Body height 69 in 69 in MEDGEN ([facility]) Body mass index 28.4 kg/m2 28.4 kg/m2 MEDGEN (BMI) [Ratio] ([facility]) Diastolic blood 78 mm[Hg] 78 mm[Hg] MEDGEN pressure ([facility]) Systolic blood 136 mm[Hg] 136 mm[Hg] MEDGEN pressure ([facility]) Body weight 192 lb 192 lb MEDGEN ([facility]) Body height 69 in 69 in MEDGEN ([facility]) Body mass index 28.4 kg/m2 28.4 kg/m2 MEDGEN (BMI) [Ratio] ([facility]) Diastolic blood 78 mm[Hg] 78 mm[Hg] MEDGEN pressure ([facility]) Systolic blood 136 mm[Hg] 136 mm[Hg] MEDGEN pressure ([facility]) Body weight 192 lb 192 lb MEDGEN ([facility]) [facility] height 69 in [facility] Body mass index 27.3 kg/m2 27.3 kg/m2 MEDGEN (BMI) [Ratio] ([facility]) Diastolic blood 82 mm[Hg] 82 mm[Hg] MEDGEN pressure ([facility]) Systolic blood 122 mm[Hg] 122 mm[Hg] MEDGEN pressure ([facility]) Body weight 185 lb 185 lb MEDGEN ([facility]) Body height 69 in 69 in [facility] ([facility]) Body mass index 27.3 kg/m2 27.3 kg/m2 MEDGEN (BMI) [Ratio] ([facility]) Diastolic blood 82 mm[Hg] 82 mm[Hg] MEDGEN pressure ([facility]) Systolic blood 122 mm[Hg] 122 mm[Hg] MEDGEN pressure ([facility]) Body weight 185 lb 185 lb MEDGEN ([facility]) Body height 69 in 69 in [facility] ([facility]) Body mass index 27.3 kg/m2 27.3 kg/m2 MEDGEN (BMI) [Ratio] ([facility]) Diastolic blood 82 mm[Hg] 82 mm[Hg] MEDGEN pressure ([facility]) Systolic blood 122 mm[Hg] 122 mm[Hg] MEDGEN pressure ([facility]) Body weight 185 lb 185 lb MEDGEN ([facility]) Body height 69 in 69 in [facility] ([facility]) Body mass index 27.3 kg/m2 27.3 kg/m2 MEDGEN (BMI) [Ratio] ([facility]) Diastolic blood 82 mm[Hg] 82 mm[Hg] MEDGEN pressure ([facility]) Systolic blood 122 mm[Hg] 122 mm[Hg] MEDGEN pressure ([facility]) Body weight 185 lb 185 lb MEDGEN ([facility]) [facility] height 69 in [facility] Body mass index 27.3 kg/m2 27.3 kg/m2 MEDGEN (BMI) [Ratio] ([facility]) Diastolic blood 82 mm[Hg] 82 mm[Hg] MEDGEN pressure ([facility]) Systolic blood 122 mm[Hg] 122 mm[Hg] MEDGEN pressure ([facility]) Body weight 185 lb 185 lb MEDGEN ([facility]) Body height 69 in 69 in [facility] ([facility]) Patient Treatment Plan of Care Planned Activity Planned Date Details Description Data Source (s) Alprazolam 2 MG Oral Tablet 12/19/2018 NEXT[facility] ([facility] [Xanax] 12:00:00 AM [facility]) Trihexyphenidyl 12/19/2018 NEXT[facility] ([facility] Hydrochloride 5 MG Oral 12:00:00 AM [facility]) Sertraline 100 MG Oral 12/19/2018 NEXTG EN ([facility] Tablet 12:00:00 AM [facility]) Risperidone 3 MG Oral 12/19/2018 NEXTGE N ([facility] Tablet 12:00:00 AM [facility]) Alprazolam 2 MG Oral Tablet 11/16/2018 [facility] ([facility] [Xanax] 12:00:00 AM [facility]) Trihexyphenidyl 11/16/2018 NEXT[facility] ([facility] Hydrochloride 5 MG Oral 12:00:00 AM [facility]) Sertraline 100 MG Oral 11/16/2018 NEXTG EN ([facility] Tablet 12:00:00 AM [facility]) Risperidone 3 MG Oral 11/16/2018 NEXTGE N ([facility] Tablet 12:00:00 AM [facility]) Alprazolam 2 MG Oral Tablet 10/19/2018 N[facility] ([facility] [Xanax] 12:00:00 AM [facility]) Trihexyphenidyl 10/19/2018 NEXTGEN ([facility] Hydrochloride 5 MG Oral 12:00:00 AM [facility]) Sertraline 100 MG Oral 10/19/2018 NEXTG EN ([facility] Tablet 12:00:00 AM [facility]) Risperidone 3 MG Oral 10/19/2018 NEXTGE N ([facility] Tablet 12:00:00 AM [facility]) Alprazolam 2 MG Oral Tablet 09/21/2018 NEXTGEN ([facility] [Xanax] 12:00:00 AM [facility]) Trihexyphenidyl 09/21/2018 NEXTGEN ([place] nt Hydrochloride 5 MG Oral 12:00:00 AM [facility]) Sertraline 100 MG Oral 09/21/2018 NEXTG EN ([facility] Tablet 12:00:00 AM [facility]) Risperidone 3 MG Oral 09/21/2018 NEXTGE N ([facility] Tablet 12:00:00 AM [facility]) Alprazolam 2 MG Oral Tablet 08/24/2018 NEXTGEN ([facility] [Xanax] 12:00:00 AM [facility]) Trihexyphenidyl 08/24/2018 NEXTGEN ([place] [facility] Hydrochloride 5 MG Oral 12:00:00 AM [facility]) Sertraline 100 MG Oral 08/24/2018 NEXTG EN ([facility] Tablet 12:00:00 AM [facility]) Risperidone 3 MG Oral 08/24/2018 NEXTGE N ([facility] Tablet 12:00:00 AM [facility]) Trihexyphenidyl 07/27/2018 NEXTGEN ([place] [facility] Hydrochloride 5 MG Oral 12:00:00 AM [facility]) Alprazolam 2 MG Oral Tablet 07/27/2018 NEXTGEN ([facility] [Xanax] 12:00:00 AM [facility]) Sertraline 100 MG Oral 07/27/2018 NEXTG EN ([facility] Tablet 12:00:00 AM [facility]) Risperidone 3 MG Oral 07/27/2018 NEXTGE N ([facility] Tablet 12:00:00 AM [facility]) Risperidone 3 MG Oral 06/22/2018 NEXTGE N ([facility] Tablet 12:00:00 AM [facility]) Trihexyphenidyl 06/22/2018 NEXTGEN ([place] [facility] Hydrochloride 5 MG Oral 12:00:00 AM [facility]) Sertraline 100 MG Oral 06/22/2018 NEXTG EN ([facility] Tablet 12:00:00 AM [facility]) Alprazolam 2 MG Oral Tablet 06/22/2018 NEXTGEN ([facility] [Xanax] 12:00:00 AM [facility]) pravastatin 40 mg [facility] TabletDirections: 1 tablet [facility] oral daily at bedtime Acetaminophen 325 MG Oral Sa int True Tablet [facility] Tamsulosin hydrochloride [place] nt True 0.4 MG Oral Capsule [facility] 24 HR Nicotine 0.875 MG/HR S aint True Transdermal Patch Medical nter methaDONE 35mg Tablet, Saint True Ordered By: Julius Martin, [facility] MDDirections: 1 tablet oral daily [id number] [facility] ter (Trelegy Ellipta) 100 Me [facility] mcg-62.5 mcg-25 mcg/actuation blister with device, Ordered By: LANE Danielirections: 1 puff by inhalation daily Albuterol 0.83 MG/ML [facility] Levofloxacin 750 MG Oral [facility] Tablet [facility] tamsuLOSIN 0.4 mg [facility] phs CapsuleDirections: 1 [facility] capsule oral daily albuterol sulfate ([facility] RespiClick) 90 mcg Aerosol [facility] Powdr Breath Activated tamsuLOSIN 0.4 mg Capsule [facility]: 1 tablet [facility] oral daily FACE MASK K N[address] [facility] nicotine 21 mg/24 hour [facility] patch 24 hour [facility] methaDONE 40 mg [facility] tablet,solubleDirections: 1 [facility] tablet oral daily Ketorolac Tromethamine 10 Sa int True MG Oral [facility] Tamsulosin hydrochloride [facility] nt True 0.4 MG Oral Capsule [facility] Famotidine 20 MG Oral [facility] Methadone Hydrochloride [facility] 0.333 MG/ML Oral Suspension [facility] Famotidine 20 MG Oral [facility] Alprazolam 2 MG Oral Tablet [facility] Risperidone 3 MG Oral [facility] Trihexyphenidyl [facility] Hydro[facility] 5 MG Oral [facility] Tablet Sertraline 100 MG Oral [facility]
== END 2020-01-01 19:09 | disposition home or self-care (01) ==
LOC: JER 14:47
PROC: 3E03329 Introduction of Other Anti-infective into Peripheral Vein, Percutaneous Approach (ICD-10-PCS; principal; 2020-01-01)
PROC: 3E033GC Introduction of Other Therapeutic Substance into Peripheral Vein, Percutaneous Approach (ICD-10-PCS; 2020-01-01)
DX: R30.0 Dysuria (principal); R10.9 Unspecified abdominal pain
CPT/HCPCS: 36415; 74176-TC; 80053; 81003; 85025; 87086; 87186; 99284-25